=== PATIENT | female | born 1965 | race Caucasian/White ===

== ENCOUNTER 2018-11-23 15:59 | Inpatient (IN) | payer OTHER ==
--- NOTE | 2018-11-23 16:12 | PDOC ---
History of Present Illness - General Stated Complaint: SHORTNESS OF BREATH Time Seen by Provider: 11/23/18 16:01 History Source: Patient Exam Limitations: No Limitations - History of Present Illness Initial Comments: 11/23/18 16:07 53 YOF with h/o COPD (placed on steroid course 2 days ago without relief) who p/ w SOB and wheezing similar to her prior COPD exacerbation. She additionally notes awakening in the middle of the night last night with visual hallucinations. She additionally notes abdominal swelling recently, believes she has an abdominal infection but does not know what kind. Denies h/o heart arrhythmia, denies recent f/c/n/v/d, rash, chest pain, back pain, palpitations, or other symptoms. She has noticed her lips are more blue than normal. Past History - Past Medical History Allergies/Adverse Reactions: Allergies Allergy/AdvReac Type Severity Reaction Status Date / Time No Known Allergies Allergy Verified 11/23/18 16:10 Home Medications: Ambulatory Orders Albuterol Sulfate Inhaler - [Ventolin Hfa Inhaler -] 1 - 2 inh PO QID 11/23/18 Aspirin [ASA -] 81 mg PO DAILY 11/23/18 Budesonide/Formeterol Fumarate [SYMBICORT 160/4.5mcg -] 1 inh PO DAILY 11/23/18 Furosemide [Lasix] 40 mg PO DAILY 11/23/18 Gabapentin 100 mg PO DAILY 11/23/18 Glipizide 10 mg PO BID 11/23/18 Lisinopril [Prinivil] 10 mg PO DAILY 11/23/18 Metformin HCl [Glucophage] 500 mg PO BID 11/23/18 Multivitamins [Tab-A-Vit -] 1 tab PO DAILY 11/23/18 Salmeterol/Fluticasone [Advair 500Mcg/50Mcg -] 1 inh IH BID 11/23/18 Review of Systems - Review of Systems Able to Perform ROS?: Yes Comments:: 11/23/18 16:24 GEN: no fever, chills, malaise, generalized weakness, or weight change HEENT: no ear pain, sore throat, vision change, or eye pain CV: no chest pain, palpitations, lightheadedness, syncope, or edema RESP: cough, wheezing, SOB GI: no abdominal pain, nausea, vomiting, diarrhea, constipation, or white/black/ bloody stool : no dysuria, hematuria, incontinence, retention, bleeding, or discharge MSK: no neck/back pain, muscle weakness/pain, or joint swelling/pain NEURO: no headache, seizure, vertigo, numbness, tingling, or focal weakness PSYCH: no substance use, no behavior change SKIN: no jaundice, no rash ROS otherwise negative except as noted in HPI *Physical Exam - Vital Signs 11/23/18 16:25 GENERAL: mild distress, cyanosis noted to lips, obese, A/Ox4, no distress, answers questions appropriately, accompanied by family HEENT: cyanosis; PERRLA, EOMI, moist mucous membranes NECK/BACK: no midline ttp, no spinal stepoff or deformity, no hematoma, full ROM , neck supple, no JVD CARDIOVASCULAR: rapid regular rate, normal S1S2, no MGR, strong peripheral pulses, capillary refill <2 seconds, extremities wwp, no edema LUNGS/RESPIRATORY: moderate respiratory distress, diffusely diminished breath sounds, bilateral expiratory wheezes and rhonchi, +accessory muscle use GI/ABDOMEN: protuberant, symmetric [id number], normoactive BS, no ttp : no CVA tenderness EXTREMITIES: no muscle atrophy, no acute deformity, no edema SKIN: warm and dry, no pallor, no jaundice, no rash, no bruising, no skin breakdown, no cuts, no lesions NEUROLOGICAL: GCS 15, CN II-XII grossly intact, moving all extremities Heart Score/ECG Review #1 11/23/18 16:11 Sinus tachycardia, rate of 152, right axis deviation, normal QTc, no ischemic ST -T changes #2 12/05/18 19:11 A-flutter, usually 2:1 conduction but occasional 3:1 versus PVC, ventricular rate 148, right axis deviation, no ischemic ST-T changes. ED Treatment Course - LABORATORY CBC & Chemistry Diagram: 12/05/18 05:30 12/05/18 09:00 - RADIOLOGY Radiology Studies Ordered: Category Date Time Status CHEST X-RAY PORTABLE* [RAD] Stat Radiology 11/23/18 16:05 Ordered Medical Decision Making - Critical Care Time Total Critical Care Time (minutes): 60 Critical Care Statement: The care of this patient involved high complexity decision making to prevent further life threatening deterioration of the patient 's condition and/or to evaluate & treat vital organ system(s) failure or risk of failure. - Medical Decision Making 11/23/18 16:30 Pt with h/o COPD p/w SOB and respiratory distress like their prior COPD exacerbation. Initial Vital Signs Pulse Resp BP Pulse Ox 150 H 36 H 129/109 H 87 L 11/23/18 16:00 11/23/18 16:00 11/23/18 16:00 11/23/18 16:00 Exam: As noted in Physical Exam section. DDX IBNLT: COPD, bronchitis, PNA, viral URI, influenza, less likely any of the following but still considered are: PTX, CHF, ACS, PE, pericarditis, pneumonitis , allergic rxn, etc W/U ordered: CBCD CMP Mg Phos Cardiac panel Blood gas EKG CXR TX ordered: DuoNebs SoluMedrol (if likely admission) Magnesium BiPAP EKG: Reviewed; results as noted in ECG Review section. CXR: No focal consolidation, mediatinum is more prominant than prior CXR but todays is portable AP, last was PA. Patient remains tachycardic to 152, IVF are started, ordered 1 liter NS. Laboratory Tests 11/23/18 11/23/18 11/23/18 16:23 16:40 16:40 WBC 9.1 RBC 4.53 Hgb 15.0 Hct 47.8 H MCV 105.6 H MCH 33.2 MCHC 31.5 L RDW 15.3 D Plt Count 140 MPV 9.6 Absolute Neuts (auto) 7.7 Neutrophils % 85.3 H Lymphocytes % 6.9 L Monocytes % 7.5 Eosinophils % 0.0 Basophils % 0.3 Nucleated RBC % 0 PT with INR INR PTT (Actin FS) Anticoagulation Therapy No Result Required. Puncture Site No Result Required. ABG pH 7.27 L ABG pCO2 at Pt Temp 68.0 H* ABG pO2 at Pt Temp 96.5 ABG HCO3 30.4 H ABG O2 Sat (Measured) 95.9 ABG O2 Content No Result Required. ABG Base Excess 1.7 Mendoza Test Positive Methemoglobin 0.2 L O2 Delivery Device No Result Required. Oxygen Flow Rate No Result Required. Vent Mode No Result Required. Vent Rate No Result Required. Mechanical Rate No Result Required. Pressure Support Vent No Result Required. Sodium 135 L Potassium 5.0 Chloride 96 L Carbon Dioxide 29 Anion Gap 9 BUN 36 H Creatinine 1.3 Creat Clearance w eGFR 42.68 Random Glucose 149 H Calcium 8.5 Phosphorus 4.0 Magnesium 2.1 Total Bilirubin 0.6 AST 119 H ALT 74 H Alkaline Phosphatase 135 H Creatine Kinase 38 Troponin I 0.05 B-Natriuretic Peptide 3256.6 H Total Protein 7.1 Albumin 3.5 11/23/18 16:40 WBC RBC Hgb Hct MCV MCH MCHC RDW Plt Count MPV Absolute Neuts (auto) Neutrophils % Lymphocytes % Monocytes % Eosinophils % Basophils % Nucleated RBC % PT with INR 13.30 H INR 1.13 H PTT (Actin FS) 29.1 Anticoagulation Therapy Puncture Site ABG pH ABG pCO2 at Pt Temp ABG pO2 at Pt Temp ABG HCO3 ABG O2 Sat (Measured) ABG O2 Content ABG Base Excess Mendoza Test Methemoglobin O2 Delivery Device Oxygen Flow Rate Vent Mode Vent Rate Mechanical Rate Pressure Support Vent Sodium Potassium Chloride Carbon Dioxide Anion Gap BUN Creatinine Creat Clearance w eGFR Random Glucose Calcium Phosphorus Magnesium Total Bilirubin AST ALT Alkaline Phosphatase Creatine Kinase Troponin I B-Natriuretic Peptide Total Protein Albumin Reassessment: Patient states breathing much better, still on BiPAP, better air movement, still wheezing. Lips no longer cyanotic, mental status remains intact. As a secondary complaint the patient now notes one month of abdominal distention and constipation without pain, states last "good" BM was a few days ago but has several smaller BMs since then, still passing gas normally. States she put herself on amoxicillin a month ago, continues on the amoxicillin, this medication was not prescribed for the abdominal/GI symptoms. Vital Signs Temperature Pulse Rate 152 H 11/23/18 17:24 Respiratory Rate 20 11/23/18 17:24 Blood Pressure 132/113 H 11/23/18 17:24 O2 Sat by Pulse Oximetry (%) 100 11/23/18 17:24 Patient still on continuous DuoNeb. Tachycardia caused by albuterol? 11/23/18 17:44 The Pts symptoms persist despite ED treatments. They are not safe for discharge from the ED at this time. They require further hospital observation, workup, and treatment. Patient's PCP is Daniel Castañeda. Microblog sent to [facility] for admission. Blank Decision to Admit order is placed per ED protocol. 11/23/18 18:[address] San; patient going to IP Tele. Decision to Admit order corrected with Dr. San's name. 11/23/18 18:59 Repeating EKG, will do diltiazem push to assess rhythm. Considering the possibility of atrial flutter as she still remains at HR 150. Patient is given 10 mg pushes diltiazem. Her rate slows briefly for one beat at a time with first three pushes. BP rechecked multiple times between pushes, never hypotensive. After 4th push she transiently improves to 130s, then back up to 150s. At this time her EKG reflects sawtooth waveforms typical of AFL. [employer] is microblogged with this information. Repeating troponin in addition to the EKG that was done after dilt pushes. Giving PO diltiazem. Patient's care is endorsed to Dr. Barriga. *DC/Admit/Observation/Transfer Diagnosis at time of Disposition: COPD exacerbation, Tachycardia Atrial flutter Qualifiers: Atrial flutter type: unspecified Qualified Code(s): I48.92 - Unspecified atrial flutter - Discharge Dispostion Condition at time of disposition: Guarded Decision to Admit order: Yes - Referrals - Patient Instructions - Post Discharge Activity
[2018-11-23] MEDS ORDERED: ALBUTEROL SO4 2.5/IPRATROPIUM 0.5 INH SOL 3 ML VIAL.NEB. NEB ONE ×2 (16:33→17:18)
[2018-11-23] MEDS ORDERED: methylPREDNISolone NA SUCC 125 MG/2 ML VIAL IVPB ONE (16:34)
[2018-11-23] MEDS ORDERED: MAGNESIUM SULF 50% (8.12 MEQ/2 ML-1 GM VIAL) IVPB ONE (16:34)
[2018-11-23] MEDS: ALBUTEROL SO4 2.5/IPRATROPIUM 0.5 INH SOL 3 ML VIAL.NEB. NEB SCH ×4 (16:41→17:16)
[2018-11-23] MEDS ORDERED: methylPREDNISolone NA SUCC 125 MG/2 ML VIAL ONE (16:43)
[2018-11-23] MEDS ORDERED: MAGNESIUM SULF 50% (8.12 MEQ/2 ML-1 GM VIAL) ONE (16:43)
[2018-11-23 16:52] LABS: ARTERIAL BLD GAS O2 SATURATION 95.9 % (90-98.9); ARTERIAL BLOOD GAS BASE EXCESS 1.7 meq/l (-2-2); ARTERIAL BLOOD GAS PO2 96.5 mmHg (80-100); ARTERIAL BLOOD GAS pH 7.27 (7.35-7.45)
[2018-11-23 16:53] LABS: ALLENS TEST POSITIVE
[2018-11-23 17:01] LABS: BASO % 0.3 % (0-2.0); HEMATOCRIT 47.8 % (32.4-45.2); LYMPH % 6.9 % (8-40); MCH 33.2 pg (25.7-33.7); MCHC 31.5 g/dl (32.0-36.0); MEAN CELL VOLUME 105.6 fl (80-96); MEAN PLT VOLUME 9.6 fl (7.5-11.1); MONO % 7.5 % (3.8-10.2); NEUT % 85.3 % (42.8-82.8); PLATELET COUNT 140 K/MM3 (134-434); RBC 4.53 M/mm3 (3.60-5.2); RDW 15.3 % (11.6-15.6); WHITE BLOOD COUNT 9.1 K/mm3 (4.0-10.0)
[2018-11-23] MEDS ORDERED: SODIUM CHLORIDE 0.9% 500 ML INFUS.BAG IV ONE (17:06)
--- NOTE | 2018-11-23 17:11 | PDOC ---
Attending Attestation - Resident Resident Name: Pebbles Velásquez - ED Attending Attestation I have performed the following: I have examined & evaluated the patient, The case was reviewed & discussed with the resident, I agree w/resident's findings & plan, Exceptions are as noted - HPI HPI: 11/23/18 16:58 The patient is a 53 year old female, with a significant past medical history of COPD (placed on steroid course 2 days ago without relief), who presents to the emergency department with, shortness of breath and wheezing. She states that she feels like she is having a COPD flare that started 3 days ago. Patient notes waking up last night with confusion and blue lips. She denies recent fevers, chills, headache or dizziness. She denies recent nausea, vomit, diarrhea or constipation. She denies recent dysuria, frequency, urgency or hematuria. She denies recent chest pain or palpitations Allergies: NKDA - Physicial Exam PE: 11/23/18 17:11 "GENERAL: Awake, alert, and fully oriented, in no acute distress. HEAD: No signs of trauma EYES: PERRLA, EOMI, sclera anicteric, conjunctiva clear ENT: Auricles normal inspection, hearing grossly normal, nares patent, oropharynx clear without exudates. Moist mucosa NECK: Nontender, no stepoffs, Normal ROM, supple, no lymphadenopathy, JVD, or masses LUNGS: + bilateral inspiratory and expiratory wheezes HEART: Regular rate and rhythm, normal S1 and S2, no murmurs, rubs or gallops ABDOMEN: Soft, nontender, normoactive bowel sounds. No guarding, no rebound. No masses EXTREMITIES: Normal range of motion, no edema. No clubbing or cyanosis. No cords, erythema, or tenderness NEUROLOGICAL: Cranial nerves II through XII intact. 5/5 strength and sensation in all extremities, Normal speech, normal gait, normal cerebellar function SKIN: Warm, Dry, normal turgor, no rashes or lesions noted. - Critical Care Time Total Critical Care Time: 60 Critical Care Statement: The care of this patient involved high complexity decision making to prevent further life threatening deterioration of the patient 's condition and/or to evaluate & treat vital organ system(s) failure or risk of failure. - Medical Decision Making 11/23/18 17:11 53 F with SOB, found to be wheezing on exam. Likely COPD flare. Will also evaluate for CHF though pt with no cardiac history. No fevers to suggest PNA. - Labs, trop, BNP - CXR - VBG - Nebs, steroids - BiPAP PRN 11/23/18 18:52 Pt persistently tachycardic to 150 EKG shows sinus tach vs aflutter with 2:1 conduction Pt with no h/o afib/flutter Will administer dilt 10mg IV and repeat EKG at this time 11/23/18 19:16 Pt given dilt 40mg IV total, with improvement in HR to 120s. Repeat EKG shows aflutter.
[2018-11-23 17:12] LABS: INR 1.13 (0.83-1.09); PROTHROMBIN TIME (PATIENT) 13.3 SEC (9.7-13.0)
[2018-11-23 17:15] LABS: ACTIVATED PTT 29.1 SECONDS (25.2-36.5)
[2018-11-23 17:33] LABS: ALBUMIN 3.5 g/dl (3.4-5.0); ALK PHOS 135 U/L (45-117); ANION GAP 9 MMOL/L (8-16); BILIRUBIN,TOTAL 0.6 mg/dL (0.2-1); BLOOD UREA NITROGEN 36 mg/dL (7-18); CALCIUM 8.5 mg/dL (8.5-10.1); CHLORIDE 96 mmol/L (98-107); CO2 29 mmol/L (21-32); CREATININE 1.3 mg/dL (0.55-1.3); GLUCOSE,RANDOM 149 mg/dL (74-106); MAGNESIUM 2.1 mg/dL (1.8-2.4); N-TERMINAL BNP 3256.6 pg/ml (5-125); SGOT/AST 119 U/L (15-37); SGPT/ALT 74 U/L (13-61); SODIUM 135 mmol/L (136-145); TOT PROT 7.1 g/dl (6.4-8.2)
[2018-11-23] MEDS ORDERED: dilTIAZem HCL 50 MG/10 ML - 10 ML VIAL IVPUSH ONE ×2 (18:50→22:28)
[2018-11-23] MEDS ORDERED: dilTIAZem HCL 50 MG/10 ML - 10 ML VIAL ONE ×3 (18:54→23:13)
[2018-11-23 19:13] LABS: MACROCYTOSIS 2+; OVALOCYTE 1+
[2018-11-23 19:14] LABS: PLATELET ESTIMATE ADEQUATE
[2018-11-23] MEDS ORDERED: dilTIAZem HCL 30 MG TABLET (FP) PO ONE (19:19)
[2018-11-23] MEDS ORDERED: dilTIAZem HCL 30 MG TABLET (FP) ONE (19:30)
[2018-11-23] MEDS ORDERED: DILTIAZEM INJECTION 125 MG in SODIUM CHLORIDE 100 ML IVPB SCH (22:30)
--- NOTE | 2018-11-23 22:31 | CON.CARD ---
Consult Consult Specialty:: cardiology Reason for Consultation:: tachycardia; shortness of breath - History of Present Illness Chief Complaint: SOB; visual hallucinations History of Present Illness: 53 YOF with h/o COPD (placed on steroid course 2 days ago without relief) acute/ chronic alcoholism (several glasses of rum daily), long-term cigarette smoker, sleep apnea, morbid obesity, DM, HTN, hyperlipidemia, metabolic syndrome, who p /w SOB and wheezing similar to her prior COPD exacerbation. She additionally notes awakening in the middle of the night last night with visual hallucinations. She additionally notes abdominal swelling recently, believes she has an abdominal infection but does not know what kind. Denies h/o heart arrhythmia. She has noticed her lips are more blue than normal. - History Source History Provided By: Patient, Family Member, Medical Record Limitations to Obtaining History: No Limitations - Past Medical History Pulmonary: Yes: COPD, Sleep Apnea (r/o (morbid obesity; COPD)) Reproductive: Yes: Postmenopausal ...: No Endocrine: Yes: Diabetes Mellitus - Alcohol/Substance Use Hx Alcohol Use: Yes (4 glasses of Rum) - Smoking History Smoking history: Current every day smoker Aproximately how many cigarettes per day: 3 Home Medications - Allergies Allergies/Adverse Reactions: Allergies Allergy/AdvReac Type Severity Reaction Status Date / Time No Known Allergies Allergy Verified 11/23/18 16:10 - Home Medications Home Medications: Ambulatory Orders Albuterol Sulfate Inhaler - [Ventolin Hfa Inhaler -] 1 - 2 inh PO QID 11/23/18 Aspirin [ASA -] 81 mg PO DAILY 11/23/18 Budesonide/Formeterol Fumarate [SYMBICORT 160/4.5mcg -] 1 inh PO DAILY 11/23/18 Furosemide [Lasix] 40 mg PO DAILY 11/23/18 Gabapentin 100 mg PO DAILY 11/23/18 Glipizide 10 mg PO BID 11/23/18 Lisinopril [Prinivil] 10 mg PO DAILY 11/23/18 Metformin HCl [Glucophage] 500 mg PO BID 11/23/18 Multivitamins [Tab-A-Vit -] 1 tab PO DAILY 11/23/18 Salmeterol/Fluticasone [Advair 500Mcg/50Mcg -] 1 inh IH BID 11/23/18 Family Disease History - Family Disease History Family History: Unable to Obtain Review of Systems - Review of Systems Constitutional: reports: Weakness Eyes: reports: No Symptoms HENT: reports: No Symptoms Neck: reports: No Symptoms Cardiovascular: reports: Shortness of Breath Respiratory: reports: SOB, Wheezing Gastrointestinal: reports: No Symptoms Genitourinary: reports: No Symptoms Breasts: reports: No Symptoms Reported Musculoskeletal: reports: Joint Pain, Muscle Weakness Integumentary: reports: No Symptoms Neurological: reports: Weakness Endocrine: reports: No Symptoms Hematology/Lymphatic: reports: No Symptoms Psychiatric: reports: Anxiety, Other (addictions) - Risk Factors Known Risk Factors: Yes: Age, Diabetes Mellitus, Hypercholesterolemia, Hypertension, Physical Inactivity, Smoking, Other (morbid obesity) Vital Signs: Vital Signs Temperature 97.8 F 11/23/18 18:18 Pulse Rate 149 H 11/23/18 19:45 Respiratory Rate 20 11/23/18 19:45 Blood Pressure 118/96 11/23/18 19:45 O2 Sat by Pulse Oximetry (%) 95 11/23/18 21:29 Constitutional: Yes: Anxious Eyes: Yes: WNL HENT: Yes: WNL Neck: Yes: WNL Respiratory: Yes: Diminished, On BiPap, SOB, Wheezes Gastrointestinal: Yes: Soft, Abdomen, Obese Renal/: No: Anuria Cardiovascular: Yes: Tachycardia, Pulse Irregular JVD: Yes Carotid Bruit: No PMI: Displaced Heart Sounds: Yes: S1 (varies in intensity), Split S2 Murmur: Yes: Systolic Murmur, Grade 1 Musculoskeletal: Yes: Joint Stiffness, Muscle Weakness Extremities: Yes: Cool Edema: Yes Edema: LLE: 1+, RLE: 1+ Peripheral Pulses WNL: Yes Integumentary: Yes: Erythema Neurological: Yes: Alert, Oriented, Weakness Psychiatric: Yes: Other (anxiety) - Other Data Labs, Other Data: CBC, BMP 11/23/18 16:40 11/23/18 16:40 INR, PTT INR 1.13 (0.83-1.09) H 11/23/18 16:40 Troponin, BNP 11/23/18 11/23/18 16:40 19:42 Troponin I 0.05 0.03 B-Natriuretic Peptide 3256.6 H Troponin, BNP 11/23/18 11/23/18 16:40 19:42 Troponin I 0.05 0.03 B-Natriuretic Peptide 3256.6 H Imaging - Results Chest X-ray: Image Reviewed EKG: Image Reviewed (Atrial flutter) Problem List - Problems (1) Atrial flutter Assessment/Plan: Control HR with diltiazem (IV bolus and drip initially, with PO for long-term, unless ECHO shows reduced LVEF, in which case consdie change to Beta nico if no hx asthma).). Start anticoagulation if CT chest rules out bleed from trauma. ECHO for LVEF, chamber sizes, valve status. r/o PE Code(s): I48.92 - UNSPECIFIED ATRIAL FLUTTER (2) Morbid obesity Code(s): E66.01 - MORBID (SEVERE) OBESITY DUE TO EXCESS CALORIES (3) COPD exacerbation Assessment/Plan: bronchodilators, O2, steroids per parachute/combatant diver officer. Code(s): J44.1 - CHRONIC OBSTRUCTIVE PULMONARY DISEASE W (ACUTE) EXACERBATION (4) Hyperlipidemia Code(s): E78.5 - HYPERLIPIDEMIA, UNSPECIFIED (5) HTN (hypertension) Code(s): I10 - ESSENTIAL (PRIMARY) HYPERTENSION (6) Diabetes Code(s): E11.9 - TYPE 2 DIABETES MELLITUS WITHOUT COMPLICATIONS (7) [place] cardiac risk >20% in next 10 years Assessment/Plan: Follow lipid profile. BP and glucose control. Coronary artery evaluation when stable (stress MIBI). Code(s): Z91.89 - OTH PERSONAL RISK FACTORS, NOT ELSEWHERE CLASSIFIED (8) Elevated LFTs Code(s): R94.5 - ABNORMAL RESULTS OF LIVER FUNCTION STUDIES (9) Cigarette nicotine dependence Code(s): F17.210 - NICOTINE DEPENDENCE, CIGARETTES, UNCOMPLICATED (10) Alcoholism Assessment/Plan: Detox protocol. Code(s): F10.20 - ALCOHOL DEPENDENCE, UNCOMPLICATED (11) Cellulitis Assessment/Plan: On antibiotics; f/u with ID. Code(s): L03.90 - CELLULITIS, UNSPECIFIED (12) Sleep apnea Assessment/Plan: workup, if not already diagnosed. Code(s): G47.30 - SLEEP APNEA, UNSPECIFIED
--- NOTE | 2018-11-23 23:05 | HP ---
Admitting History and Physical - Primary Care Physician PCP: Brown Castañeda - Admission Chief Complaint: SOB, Wheezing, Confusion, Abdominal Distention History of Present Illness: This is a 53 y/o woman with a PMHx of COPD, HTN, DM, Hypothyroidism, Tobacco Dependence, Severe Obesity. Who presents to the ED with SOB, QUESADA, Cough, blue lips, confusion x3 days, L breast pain s/p mechanical fall (last Saturday). Patient reports being treated with steroids recently with no improvement. Patient reports exposure to cleaning chemicals last Saturday. Patient reports having abdominal distention which she attributes to "constipation issues" Patient denies fever, ALEJANDRO, palpitations, N/V/D, dysuria. Patient denies head injury or LOC. History Source: Patient Limitations to Obtaining History: No Limitations - Past Medical History Cardiovascular: Yes: HTN Pulmonary: Yes: COPD, Sleep Apnea (r/o (morbid obesity; COPD)) Reproductive: Yes: Postmenopausal Endocrine: Yes: Diabetes Mellitus, Hypothyroidism - Past Surgical History Past Surgical History: Yes: Cholecystectomy Additional Past Surgical History: D/C - Smoking History Smoking history: Current every day smoker Aproximately how many cigarettes per day: 6 - Alcohol/Substance Use Hx Alcohol Use: Yes (4 glasses of Rum) History of Substance Use: reports: None - Social History Usual Living Arrangement: Yes: Other (Roommate) ADL: Independent History of Recent Travel: No Home Medications - Allergies Allergies/Adverse Reactions: Allergies Allergy/AdvReac Type Severity Reaction Status Date / Time No Known Allergies Allergy Verified 11/23/18 16:10 - Home Medications Home Medications: Ambulatory Orders Albuterol Sulfate Inhaler - [Ventolin Hfa Inhaler -] 1 - 2 inh PO QID 11/23/18 Aspirin [ASA -] 81 mg PO DAILY 11/23/18 Budesonide/Formeterol Fumarate [SYMBICORT 160/4.5mcg -] 1 inh PO DAILY 11/23/18 Furosemide [Lasix] 40 mg PO DAILY 11/23/18 Gabapentin 100 mg PO DAILY 11/23/18 Glipizide 10 mg PO BID 11/23/18 Lisinopril [Prinivil] 10 mg PO DAILY 11/23/18 Metformin HCl [Glucophage] 500 mg PO BID 11/23/18 Multivitamins [Tab-A-Vit -] 1 tab PO DAILY 11/23/18 Salmeterol/Fluticasone [Advair 500Mcg/50Mcg -] 1 inh IH BID 11/23/18 Family Disease History - Family Disease History Family History: Unable to Obtain (patient is adopted) Review of Systems - Review of Systems Constitutional: reports: No Symptoms Eyes: reports: No Symptoms HENT: reports: No Symptoms, Other (circumoral cyanosis) Neck: reports: No Symptoms Cardiovascular: reports: Chest Pain, Edema, Shortness of Breath Respiratory: reports: Cough, SOB, SOB on Exertion, Wheezing Gastrointestinal: reports: Bloating, Constipation Genitourinary: reports: No Symptoms Breasts: reports: Other (L- under breast pain) Musculoskeletal: reports: No Symptoms Integumentary: reports: Erythema Neurological: reports: Confusion Endocrine: reports: No Symptoms Hematology/Lymphatic: reports: No Symptoms Psychiatric: reports: Hallucinations (visual) Physical Examination Vital Signs: Vital Signs Temperature 97.8 F 11/23/18 18:18 Pulse Rate 149 H 11/23/18 19:45 Respiratory Rate 20 11/23/18 19:45 Blood Pressure 118/96 11/23/18 19:45 O2 Sat by Pulse Oximetry (%) 95 11/23/18 21:29 Constitutional: Yes: Moderate Distress, Obese Eyes: Yes: Conjunctiva Clear (clear- right eye, injected- left eye), EOM Intact , PERRL HENT: Yes: WNL, Atraumatic, Normocephalic Neck: Yes: WNL, Supple, Trachea Midline Cardiovascular: Yes: Tachycardia, Pulse Irregular, S1, S2 Respiratory: Yes: Cough, On BiPap, Rhonchi, SOB, SOB on Exertion, Tachypnea, Wheezes Gastrointestinal: Yes: Abdomen, Obese, Distention, Hypoactive Bowel Sounds, Tenderness ...Rectal Exam: Yes: Deferred Renal/: Yes: WNL Breast(s): Yes: WNL Musculoskeletal: Yes: WNL Extremities: Yes: Erythema (LE). No: Calf Tenderness Edema: Yes Edema: LLE: 3+, RLE: 2+ Peripheral Pulses WNL: Yes Integumentary: Yes: Erythema, Venous Stasis Changes Neurological: Yes: WNL, Alert, Oriented, Cran Nerves II-XII Intact ...Motor Strength: WNL Psychiatric: Yes: WNL, Alert, Oriented Labs: CBC, BMP 11/23/18 16:40 11/23/18 16:40 Laboratory Results - last 24 hr 11/23/18 11/23/18 11/23/18 16:23 16:40 16:40 WBC 9.1 RBC 4.53 Hgb 15.0 Hct 47.8 H MCV 105.6 H MCH 33.2 MCHC 31.5 L RDW 15.3 D Plt Count 140 MPV 9.6 Absolute Neuts (auto) 7.7 Neutrophils % 85.3 H Lymphocytes % 6.9 L Monocytes % 7.5 Eosinophils % 0.0 Basophils % 0.3 Nucleated RBC % 0 Platelet Estimate Adequate Platelet Comment Polychromasia 1+ Poikilocytosis 1+ Macrocytosis 2+ Ovalocytes 1+ PT with INR INR PTT (Actin FS) D-Dimer Anticoagulation Therapy No Result Required. Puncture Site No Result Required. ABG pH 7.27 L ABG pCO2 at Pt Temp 68.0 H* ABG pO2 at Pt Temp 96.5 ABG HCO3 30.4 H ABG O2 Sat (Measured) 95.9 ABG O2 Content No Result Required. ABG Base Excess 1.7 Mendoza Test Positive Methemoglobin 0.2 L O2 Delivery Device No Result Required. Oxygen Flow Rate No Result Required. Vent Mode No Result Required. Vent Rate No Result Required. Mechanical Rate No Result Required. Pressure Support Vent No Result Required. Sodium 135 L Potassium 5.0 Chloride 96 L Carbon Dioxide 29 Anion Gap 9 BUN 36 H Creatinine 1.3 Creat Clearance w eGFR 42.68 POC Glucometer Random Glucose 149 H Calcium 8.5 Phosphorus 4.0 Magnesium 2.1 Total Bilirubin 0.6 AST 119 H ALT 74 H Alkaline Phosphatase 135 H Creatine Kinase 38 Troponin I 0.05 B-Natriuretic Peptide 3256.6 H Total Protein 7.1 Albumin 3.5 TSH 11/23/18 11/23/18 11/23/18 16:40 16:40 19:42 WBC RBC Hgb Hct MCV MCH MCHC RDW Plt Count MPV Absolute Neuts (auto) Neutrophils % Lymphocytes % Monocytes % Eosinophils % Basophils % Nucleated RBC % Platelet Estimate Platelet Comment Polychromasia Poikilocytosis Macrocytosis Ovalocytes PT with INR 13.30 H INR 1.13 H PTT (Actin FS) 29.1 D-Dimer 4341 H Anticoagulation Therapy Puncture Site ABG pH ABG pCO2 at Pt Temp ABG pO2 at Pt Temp ABG HCO3 ABG O2 Sat (Measured) ABG O2 Content ABG Base Excess Mendoza Test Methemoglobin O2 Delivery Device Oxygen Flow Rate Vent Mode Vent Rate Mechanical Rate Pressure Support Vent Sodium Potassium Chloride Carbon Dioxide Anion Gap BUN Creatinine Creat Clearance w eGFR POC Glucometer Random Glucose Calcium Phosphorus Magnesium Total Bilirubin AST ALT Alkaline Phosphatase Creatine Kinase Troponin I 0.03 B-Natriuretic Peptide Total Protein Albumin TSH 11/24/18 11/24/18 11/24/18 02:08 02:08 03:54 WBC RBC Hgb Hct MCV MCH MCHC RDW Plt Count MPV Absolute Neuts (auto) Neutrophils % Lymphocytes % Monocytes % Eosinophils % Basophils % Nucleated RBC % Platelet Estimate Platelet Comment Polychromasia Poikilocytosis Macrocytosis Ovalocytes PT with INR INR PTT (Actin FS) D-Dimer Anticoagulation Therapy Puncture Site ABG pH ABG pCO2 at Pt Temp ABG pO2 at Pt Temp ABG HCO3 ABG O2 Sat (Measured) ABG O2 Content ABG Base Excess Mendoza Test Methemoglobin O2 Delivery Device Oxygen Flow Rate Vent Mode Vent Rate Mechanical Rate Pressure Support Vent Sodium Potassium Chloride Carbon Dioxide Anion Gap BUN Creatinine Creat Clearance w eGFR POC Glucometer [phone] Random Glucose Calcium Phosphorus Magnesium Total Bilirubin AST ALT Alkaline Phosphatase Creatine Kinase Troponin I 0.03 B-Natriuretic Peptide Total Protein Albumin TSH Cancelled Intake & Output 11/21/18 11/22/18 11/23/18 11/24/18 23:59 23:59 23:59 23:59 Intake Total 100 Balance 100 Weight 124.738 kg Current Medications Generic Name Dose Route Start Last Admin Trade Name Freq PRN Reason Stop Dose Admin Apixaban 5 mg 11/24/18 10:00 Eliquis - PO BID [facility] Aspirin 81 mg 11/24/18 10:00 Asa - PO DAILY [facility] Budesonide/Formoterol Fumarate 1 puff 11/24/18 10:00 Symbicort 160/4.5mcg - IH DAILY [facility] Diltiazem HCl 30 mg 11/24/18 06:00 11/24/18 06:13 Cardizem - PO 30 mg Q6HPO [facility] Administration Furosemide 40 mg 11/24/18 10:00 Lasix Injection - IVPUSH DAILY [facility] Gabapentin 100 mg 11/24/18 10:00 Neurontin - PO DAILY [facility] Diltiazem HCl 125 mg/ Sodium 125 mls @ 5 mls/hr 11/23/18 22:30 11/24/18 08:45 Chloride IVPB 10 mg/hr TITR [facility] 10 mls/hr Titration Protocol 5 MG/HR Insulin Aspart 0 vial 11/24/18 11:00 Novolog Vial Sliding Scale - SQ ACHS [facility] Protocol Lisinopril 10 mg 11/24/18 10:00 Prinivil PO DAILY [facility] Methylprednisolone Sodium Succinate 40 mg 11/24/18 10:00 Solu-Medrol - IVPUSH Q8H-IV [facility] Multivitamins/Minerals/Vitamin C 1 tab 11/24/18 10:00 Tab-A-Vit - PO DAILY [facility] Imaging - Results Chest X-ray: Image Reviewed Cat Scan: Report Reviewed, Image Reviewed Ultrasound: Pending EKG: Image Reviewed Problem List - Problems (1) New onset atrial flutter Code(s): I48.92 - UNSPECIFIED ATRIAL FLUTTER (2) Acute respiratory failure with hypoxia and hypercapnia Code(s): J96.01 - ACUTE RESPIRATORY FAILURE WITH HYPOXIA; J96.02 - ACUTE RESPIRATORY FAILURE WITH HYPERCAPNIA (3) Pneumonia Code(s): J18.9 - PNEUMONIA, UNSPECIFIED ORGANISM (4) [place] cardiac risk >20% in next 10 years Code(s): Z91.89 - OTH PERSONAL RISK FACTORS, NOT ELSEWHERE CLASSIFIED (5) Bilateral lower extremity edema Code(s): R60.0 - LOCALIZED EDEMA (6) HTN (hypertension) Code(s): I10 - ESSENTIAL (PRIMARY) HYPERTENSION (7) Hyperlipidemia Code(s): E78.5 - HYPERLIPIDEMIA, UNSPECIFIED (8) Diabetes Code(s): E11.9 - TYPE 2 DIABETES MELLITUS WITHOUT COMPLICATIONS (9) Morbid obesity Code(s): E66.01 - MORBID (SEVERE) OBESITY DUE TO EXCESS CALORIES Assessment/Plan This is a 53 y/o woman with a PMHx of COPD, HTN, NIDDM. Admitted to Telemetry for New Onset AFlutter, Pneumonia, Acute Hypoxia Hypercapnic Respiratory Failure , Acute COPD Exacerbation for further evaluation of their emergent condition. Plan: 1. Cardiovascular Newonset Aflutter HTN Lower Extremity Edema Continue Cardiac monitoring EKGs done in ED reviewed Cardizem x 4 doses given in ED with some effect Appreciate Cardiology consult Per Cardiology recommendation Cardizem drip started in ED Concerning for possible PE Wells Score 4.5 Add on d Dimer >4000 CTA r/o PE [id number] Will start on Eliquis, pending CTA results Wells Score 2 Duplex of LE r/o DVT Continue home med Monitor renal function 2. Pulmonary Acute Hypoxia Hypercapnic Respiratory Failure Pneumonia Acute COPD Exacerbation Continue BIPAP AB.27/68/96/30.4/95.9 ABG in am, adjust BIPAP settings accordingly Duonebs Solumederol, Mag Sulfate, Duonebs given in ED Solumederol w/taper Appreciate Pulmonology consult CTA- pending Blood Cultures-pending Will start on Azithromycin, Ceftriaxone empirically for CAP Appreciate ID consult Continue cardiac monitoring Aspiration Precautions Monitor CBC, BMP 3. Endocrinology DM BGMs ISS Hold Metformin secondary to recent IV contrast dye for CTA Monitor renal function FEN PO fluids as tolerated Replete lytes prn Low Na, Diabetic Diet DVT ppx OOB Eliquis Code Status: Full Code Dispo: Requires Inpatient Care Visit type - Emergency Visit Emergency Visit: Yes ED Registration Date: 11/23/18 Care time: The patient presented to the Emergency Department on the above date and was hospitalized for further evaluation of their emergent condition. - New Patient This patient is new to me today: Yes Date on this admission: 11/23/18 - Critical Care Critical Care patient: No
--- NOTE | 2018-11-23 23:36 | CONSULT ---
Consult - Past Medical History Pulmonary: Yes: COPD, Sleep Apnea (r/o (morbid obesity; COPD)) - Alcohol/Substance Use Hx Alcohol Use: Yes (4 glasses of Rum) - Smoking History Smoking history: Current every day smoker Aproximately how many cigarettes per day: 3 Home Medications - Allergies Allergies/Adverse Reactions: Allergies Allergy/AdvReac Type Severity Reaction Status Date / Time No Known Allergies Allergy Verified 11/23/18 16:10 - Home Medications Home Medications: Ambulatory Orders Albuterol Sulfate Inhaler - [Ventolin Hfa Inhaler -] 1 - 2 inh PO QID 11/23/18 Aspirin [ASA -] 81 mg PO DAILY 11/23/18 Budesonide/Formeterol Fumarate [SYMBICORT 160/4.5mcg -] 1 inh PO DAILY 11/23/18 Furosemide [Lasix] 40 mg PO DAILY 11/23/18 Lisinopril [Prinivil] 10 mg PO DAILY 11/23/18 Metformin HCl [Glucophage] 500 mg PO BID 11/23/18 Multivitamins [Tab-A-Vit -] 1 tab PO DAILY 11/23/18 RX: Gabapentin 100 mg PO DAILY 11/23/18 RX: Glipizide 10 mg PO BID 11/23/18 Salmeterol/Fluticasone [Advair 500Mcg/50Mcg -] 1 inh IH BID 11/23/18 Physical Exam Vital Signs: Vital Signs Temperature 97.8 F 11/23/18 18:18 Pulse Rate 122 H 11/23/18 23:24 Respiratory Rate 20 11/23/18 19:45 Blood Pressure 141/98 11/23/18 23:24 O2 Sat by Pulse Oximetry (%) 95 11/23/18 21:29 Constitutional: Yes: Moderate Distress Cardiovascular: Yes: Pulse Irregular, S1, S2 Respiratory: Yes: On BiPap, Wheezes Gastrointestinal: Yes: Normal Bowel Sounds, Soft Edema: No Neurological: Yes: Alert, Oriented Labs: CBC, BMP 11/23/18 16:40 Imaging - Results X-ray: Image Reviewed Assessment/Plan 53 yo F admitted to the ICU due to acute on chronic respiratory failure Pulm: acute on chronic hypercarbic respiratory failure - likely 2/2 COPD exacerbation - BiPAP to trach - f/u repeat ABG - standing and PRN duonebs - medrols - abx Dispo: Due to new onset of a-flutter in the setting of rising CO2, patient will require BiPAP to trach and ICU level of care. Arnaldo Fuentes MD
[2018-11-24] MEDS ORDERED: CEFTRIAXONE 1 GM in DEXTROSE 5%-WATER - 50 ML IVPB ONE (03:09)
[2018-11-24] MEDS ORDERED: AZITHROMYCIN IVPB 500 MG/250 ML BAG IVPB ONE ×2 (03:09→04:05)
[2018-11-24] MEDS ORDERED: CEFTRIAXONE 1 GM/50 ML BAG ONE (04:05)
[2018-11-24] MEDS ORDERED: dilTIAZem HCL 50 MG/10 ML - 10 ML VIAL ONE (06:03)
[2018-11-24] MEDS: dilTIAZem HCL 30 MG TABLET (FP) PO SCH ×3 (06:13→19:00)
[2018-11-24 06:37] LABS: ARTERIAL BLD GAS O2 SATURATION 94.9 % (90-98.9); ARTERIAL BLOOD GAS BASE EXCESS 2.8 meq/l (-2-2); ARTERIAL BLOOD GAS pH 7.29 (7.35-7.45)
[2018-11-24 06:41] LABS: ALLENS TEST POSITIVE
[2018-11-24 06:49] LABS: ARTERIAL BLOOD GAS PCO2 67.2 mmHg (35-45)
[2018-11-24] MEDS ORDERED: INSULIN (NOVOLOG) ASPART 100 UNITS/ML 10ML VIAL ONE ×2 (07:15→07:28)
[2018-11-24] MEDS ORDERED: PATIENT'S OWN MEDICATION (NON-FORMULARY) (Salmeterol/Fluticasone [Advair 500mcg/50mcg -] 1 IH SCH (10:00)
[2018-11-24] MEDS ORDERED: FUROSEMIDE 40 MG/4 ML INJECTABLE VIAL IVPUSH SCH (10:00)
[2018-11-24] MEDS ORDERED: MUPIROCIN 2% TOPICAL OINTMENT FOR DECOLONIZATION NS SCH (10:00)
[2018-11-24] MEDS ORDERED: LISINOPRIL 10 MG TABLET (FP) PO SCH (10:00)
[2018-11-24] MEDS ORDERED: ASPIRIN 81 MG CHEWABLE TABLETS ONE (10:43)
[2018-11-24] MEDS ORDERED: LISINOPRIL 5 MG TABLET (FP) ONE (10:43)
[2018-11-24] MEDS ORDERED: APIXABAN 5 MG TABLET PO ONE (10:43)
[2018-11-24] MEDS ORDERED: methylPREDNISolone NA SUCC 40 MG/1 ML VIAL ONE (10:44)
[2018-11-24] MEDS ORDERED: FUROSEMIDE 40 MG/4 ML INJECTABLE VIAL ONE (10:44)
[2018-11-24] MEDS ORDERED: GABAPENTIN 100 MG CAPSULE (FP) ONE (10:44)
[2018-11-24 11:15] LABS: ALBUMIN 3.7 g/dl (3.4-5.0); ALK PHOS 130 U/L (45-117); ANION GAP 4 MMOL/L (8-16); BILIRUBIN,TOTAL 0.6 mg/dL (0.2-1); BLOOD UREA NITROGEN 41 mg/dL (7-18); CALCIUM 8.8 mg/dL (8.5-10.1); CHLORIDE 96 mmol/L (98-107); CHOLESTEROL 168 mg/dL (50-200); CO2 33 mmol/L (21-32); CREATININE 1.3 mg/dL (0.55-1.3); GLUCOSE,RANDOM 231 mg/dL (74-106); HDL CHOLESTEROL 31 mg/dL (40-60); MAGNESIUM 2.7 mg/dL (1.8-2.4); POTASSIUM 5.3 mmol/L (3.5-5.1); SGOT/AST 126 U/L (15-37); SGPT/ALT 90 U/L (13-61); SODIUM 133 mmol/L (136-145); TOT PROT 7.2 g/dl (6.4-8.2); TRIGLYCERIDES 151 mg/dL (0-150)
--- NOTE | 2018-11-24 11:25 | PN ---
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, Physician History of Present Illness: pt seen/ examined in er family at bedside chart reviewed still in rapid aflutter sob + admits drinks on regular basis also - Current Medication List Current Medications: Active Medications Apixaban (Eliquis -) 5 mg PO BID [facility] Aspirin (Asa -) 81 mg PO DAILY [facility] Budesonide/Formoterol Fumarate (Symbicort 160/4.5mcg -) 1 puff IH DAILY [facility] Diltiazem HCl (Cardizem -) 30 mg PO Q6HPO [facility] Last Admin: 11/24/18 06:13 Dose: 30 mg Furosemide (Lasix Injection -) 40 mg IVPUSH DAILY [facility] Gabapentin (Neurontin -) 100 mg PO DAILY [facility] Diltiazem HCl 125 mg/ Sodium (Chloride) 125 mls @ 5 mls/hr IVPB TITR [facility]; Protocol Last Titration: 11/24/18 08:45 Dose: 10 mg/hr, 10 mls/hr Insulin Aspart (Novolog Vial Sliding Scale -) 1 vial SQ ACHS [facility]; Protocol Insulin Detemir (Levemir Vial) 10 units SQ HS [facility] Lisinopril (Prinivil) 10 mg PO DAILY [facility] Methylprednisolone Sodium Succinate (Solu-Medrol -) 40 mg IVPUSH Q8H-IV [facility] Multivitamins/Minerals/Vitamin C (Tab-A-Vit -) 1 tab PO DAILY [facility] - Objective Vital Signs: Vital Signs Temperature 98.6 F 11/24/18 06:05 Pulse Rate 143 H 11/24/18 09:20 Respiratory Rate 18 11/24/18 09:20 Blood Pressure 103/62 11/24/18 09:20 O2 Sat by Pulse Oximetry (%) 96 11/24/18 09:20 Constitutional: Yes: Anxious, Mild Distress, Obese Eyes: Yes: Conjunctiva Clear Neck: Yes: Supple Cardiovascular: Yes: Tachycardia, Pulse Irregular Respiratory: Yes: On Nasal O2, Rhonchi Gastrointestinal: Yes: Soft Edema: LLE: 2+, RLE: 2+ Neurological: Yes: Alert Labs: CBC, BMP 11/24/18 09:54 INR, PTT INR 1.13 (0.83-1.09) H 11/23/18 16:40 - ....Imaging Chest X-ray: Report Reviewed Cat Scan: Report Reviewed Problem List - Problems (1) Acute respiratory failure with hypoxia and hypercapnia Code(s): J96.01 - ACUTE RESPIRATORY FAILURE WITH HYPOXIA; J96.02 - ACUTE RESPIRATORY FAILURE WITH HYPERCAPNIA (2) Atrial flutter Code(s): I48.92 - UNSPECIFIED ATRIAL FLUTTER (3) Bilateral lower extremity edema Code(s): R60.0 - LOCALIZED EDEMA (4) COPD exacerbation Code(s): J44.1 - CHRONIC OBSTRUCTIVE PULMONARY DISEASE W (ACUTE) EXACERBATION (5) Diabetes Code(s): E11.9 - TYPE 2 DIABETES MELLITUS WITHOUT COMPLICATIONS (6) Elevated LFTs Code(s): R94.5 - ABNORMAL RESULTS OF LIVER FUNCTION STUDIES (7) Hyperlipidemia Code(s): E78.5 - HYPERLIPIDEMIA, UNSPECIFIED (8) Morbid obesity Code(s): E66.01 - MORBID (SEVERE) OBESITY DUE TO EXCESS CALORIES Assessment/Plan Discussed with pt in detail/ family compliance major issue admit to icu cardizem drip-- titrate as needed add digoxin ? cardiology on case echo meds reviewed alcohol and smoking cessation counselling provided again add gi prophylaxis as well as basal insulin discussed with nursing staff also. will follow cc time approx 45 min
[2018-11-24 12:00] LABS: BASO % 0.1 % (0-2.0); HEMATOCRIT 46.5 % (32.4-45.2); HEMOGLOBIN 14.2 GM/dL (10.7-15.3); MCH 32.5 pg (25.7-33.7); MCHC 30.5 g/dl (32.0-36.0); MEAN CELL VOLUME 106.7 fl (80-96); MEAN PLT VOLUME 9.4 fl (7.5-11.1); MONO % 10.5 % (3.8-10.2); NEUT % 80.4 % (42.8-82.8); PLATELET COUNT 162 K/MM3 (134-434); RDW 16.1 % (11.6-15.6); WHITE BLOOD COUNT 6.9 K/mm3 (4.0-10.0)
[2018-11-24 12:03] LABS: RBC 4.36 M/mm3 (3.60-5.2)
[2018-11-24] MEDS: INSULIN SLIDING SCALE (NOVOLOG) 1 VIAL SQ SCH ×3 (12:04→22:13)
[2018-11-24] MEDS: BUDESONIDE/FORMETEROL FUMARATE 160/4.5 mcg INHALER IH SCH (12:04)
[2018-11-24] MEDS: MULTIVITAMINS (DAILY MVI) TABLET (FP) PO SCH (12:04)
[2018-11-24] MEDS: APIXABAN 5 MG TABLET PO SCH ×2 (12:04→22:12)
[2018-11-24] MEDS: GABAPENTIN 100 MG CAPSULE (FP) PO SCH (12:04)
[2018-11-24] MEDS: methylPREDNISolone NA SUCC 40 MG/1 ML VIAL IVPUSH SCH ×2 (12:04→19:14)
[2018-11-24] MEDS: ASPIRIN 81 MG CHEWABLE TABLETS PO SCH (12:04)
[2018-11-24] MEDS ORDERED: dilTIAZem HCL 30 MG TABLET (FP) ONE (12:08)
[2018-11-24] MEDS ORDERED: PANTOPRAZOLE 40 MG TABLET (FP) ONE (12:08)
[2018-11-24] MEDS: PANTOPRAZOLE 20 MG TABLET (FP) PO SCH (12:21)
--- NOTE | 2018-11-24 12:37 | CON.ID ---
Consult Consult Specialty:: infectious disease Referred by:: dr gregg Reason for Consultation:: sob, r/o pneumonia - History of Present Illness Chief Complaint: worsening SOB and QUESADA History of Present Illness: 53 yo female, daily smoker, daily etoh user (rum), s/p fall at home one week ago notes she has had increasing abdominal girth for several weeks over last 3 days SOB with QUESADA and wheezing no cough no fever legs are red for awhile now ribbon shaped stools for years last colonsocopy with dr rich no flu vaccine pet dog no travel no sick contacts drinks rum daily has never tried to stop drinking noted to be in atrial flutter and started on cardizem drip - History Source History Provided By: Patient, Medical Record Limitations to Obtaining History: No Limitations - Past Medical History Cardio/Vascular: Yes: HTN Pulmonary: Yes: COPD, Sleep Apnea (r/o (morbid obesity; COPD)) Endocrine: Yes: Diabetes Mellitus, Hypothyroidism - Past Surgical History Past Surgical History: Yes: Cholecystectomy - Alcohol/Substance Use Hx Alcohol Use: Yes (4 glasses of Rum) History of Substance Use: reports: None - Smoking History Smoking history: Current every day smoker Aproximately how many cigarettes per day: 6 - Social History Usual Living Arrangement: Other (roommate) ADL: Independent Place of : [place] History of Recent Travel: No Home Medications - Allergies Allergies/Adverse Reactions: Allergies Allergy/AdvReac Type Severity Reaction Status Date / Time No Known Allergies Allergy Verified 11/23/18 16:10 - Home Medications Home Medications: Ambulatory Orders Albuterol Sulfate Inhaler - [Ventolin Hfa Inhaler -] 1 - 2 inh PO QID 11/23/18 Aspirin [ASA -] 81 mg PO DAILY 11/23/18 Budesonide/Formeterol Fumarate [SYMBICORT 160/4.5mcg -] 1 inh PO DAILY 11/23/18 Furosemide [Lasix] 40 mg PO DAILY 11/23/18 Gabapentin 100 mg PO DAILY 11/23/18 Glipizide 10 mg PO BID 11/23/18 Lisinopril [Prinivil] 10 mg PO DAILY 11/23/18 Metformin HCl [Glucophage] 500 mg PO BID 11/23/18 Multivitamins [Tab-A-Vit -] 1 tab PO DAILY 11/23/18 Salmeterol/Fluticasone [Advair 500Mcg/50Mcg -] 1 inh IH BID 11/23/18 Family Disease History - Family Disease History Family History: Denies Review of Systems - Review of Systems Constitutional: denies: Chills, Fever Eyes: reports: No Symptoms HENT: reports: No Symptoms Neck: reports: No Symptoms Cardiovascular: reports: Edema. denies: Chest Pain Respiratory: reports: Exercise Intolerance, SOB on Exertion, Wheezing. denies: Hemoptysis Gastrointestinal: reports: Bloating, Constipation. denies: Abdominal Pain, Diarrhea, Vomiting Genitourinary: reports: No Symptoms Physical Exam Vital Signs: Vital Signs Temperature 98.6 F 11/24/18 06:05 Pulse Rate 143 H 11/24/18 09:20 Respiratory Rate 18 11/24/18 09:20 Blood Pressure 103/62 11/24/18 09:20 O2 Sat by Pulse Oximetry (%) 96 11/24/18 09:20 Constitutional: Yes: Calm, Obese Eyes: Yes: Conjunctiva Clear, EOM Intact HENT: Yes: Atraumatic, Normocephalic. No: Thrush Neck: Yes: Supple Cardiovascular: Yes: Tachycardia Respiratory: Yes: Wheezes Gastrointestinal: Yes: Normal Bowel Sounds, Distention. No: Tenderness Extremities: Yes: Erythema Edema: Yes Edema: LLE: 1+, RLE: 1+ Neurological: Yes: Alert Labs: CBC, BMP 11/24/18 09:54 11/24/18 09:54 Imaging - Results Chest X-ray: Report Reviewed Cat Scan: Report Reviewed (no PE, ILD with mediastinal and hilar adenopathy) Ultrasound: Pending Problem List - Problems (1) Acute respiratory failure with hypoxia and hypercapnia Code(s): J96.01 - ACUTE RESPIRATORY FAILURE WITH HYPOXIA; J96.02 - ACUTE RESPIRATORY FAILURE WITH HYPERCAPNIA (2) Atrial flutter Code(s): I48.92 - UNSPECIFIED ATRIAL FLUTTER (3) Elevated LFTs Code(s): R94.5 - ABNORMAL RESULTS OF LIVER FUNCTION STUDIES (4) Pneumonia Code(s): J18.9 - PNEUMONIA, UNSPECIFIED ORGANISM (5) COPD exacerbation Code(s): J44.1 - CHRONIC OBSTRUCTIVE PULMONARY DISEASE W (ACUTE) EXACERBATION (6) Cellulitis Code(s): L03.90 - CELLULITIS, UNSPECIFIED (7) Morbid obesity Code(s): E66.01 - MORBID (SEVERE) OBESITY DUE TO EXCESS CALORIES Assessment/Plan respiratory symptoms may all be secondary to atrial flutter and volume overload but would continue coverage for pneumonia for now add vancomycin one dose for cellulitis check influenza antigen and urinary pneumonia antigen received rocephin/zithromax today continue rocephin , vancomycinone dose f/u cultures check duplex of legs, check abdominal ultrasound consider detox consult cardiology to manage tachycardia d/w Dr Gregg
[2018-11-24] MEDS ORDERED: chlordiazePOXIDE HCL 25 MG CAPSULE PO PRN (13:10)
[2018-11-24] MEDS ORDERED: chlordiazePOXIDE HCL 25 MG CAPSULE PO ONE (13:10)
[2018-11-24 13:19] LABS: URINE APPEARANCE CLEAR; URINE BILIRUBIN NEGATIVE (<2.0 mg/dL); URINE GLUCOSE (UA) NEGATIVE (NEGATIVE); URINE KETONE NEGATIVE (NEGATIVE); URINE LEUK ESTERASE NEGATIVE (NEGATIVE); URINE NITRITE NEGATIVE (NEGATIVE); URINE PROTEIN 1+ (NEGATIVE); URINE UROBILINOGEN 4.0 E.U/dl mg/dL (0.2-1.0)
[2018-11-24 13:22] LABS: URINE COLOR YELLOW
[2018-11-24] MEDS ORDERED: VANCOMYCIN 1,250 MG in DEXTROSE 5%-WATER - 250 ML IVPB ONE (13:30)
--- NOTE | 2018-11-24 13:32 | PN ---
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 HTN ILD MEDIASTINAL/HILAR ADENOPATHY RAPID AFLUTTER DM HTN CELLULITIS TRINH NOT COMPLIANT WITH CPAP TOBACCO ABUSE ETOH ABUSE ELEVATED LFTS PLAN IV ABX PER ID IV STEROIDS INHALED BRONCHODILATORS CARDIZEM AC RATE CONTROL PER CARDIOLOGY F/U ABGS BIPAP AT NIGHT AND PRN FOR RESPIRATORY DISTRESS CULTURES PFTS OUTPATIENT PET CT OUTPATIENT TO EVALUATE MEDIASTINAL/HILAR ADENOPATHY ECHO DAILY WT MONITOR LYTES,LFTS SMOKING CESSATION COUNSELED DR MCCAULEY Problem List - Problems (1) Acute on chronic respiratory failure with hypoxia and hypercapnia Code(s): J96.21 - ACUTE AND CHRONIC RESPIRATORY FAILURE WITH HYPOXIA; J96.22 - ACUTE AND CHRONIC RESPIRATORY FAILURE WITH HYPERCAPNIA (2) COPD exacerbation Code(s): J44.1 - CHRONIC OBSTRUCTIVE PULMONARY DISEASE W (ACUTE) EXACERBATION (3) Atrial flutter Code(s): I48.92 - UNSPECIFIED ATRIAL FLUTTER (4) Bilateral lower extremity edema Code(s): R60.0 - LOCALIZED EDEMA (5) COPD exacerbation Code(s): J44.1 - CHRONIC OBSTRUCTIVE PULMONARY DISEASE W (ACUTE) EXACERBATION (6) Cellulitis Code(s): L03.90 - CELLULITIS, UNSPECIFIED (7) Diabetes Code(s): E11.9 - TYPE 2 DIABETES MELLITUS WITHOUT COMPLICATIONS (8) Elevated LFTs Code(s): R94.5 - ABNORMAL RESULTS OF LIVER FUNCTION STUDIES (9) HTN (hypertension) Code(s): I10 - ESSENTIAL (PRIMARY) HYPERTENSION (10) Hyperlipidemia Code(s): E78.5 - HYPERLIPIDEMIA, UNSPECIFIED (11) Morbid obesity Code(s): E66.01 - MORBID (SEVERE) OBESITY DUE TO EXCESS CALORIES (12) New onset atrial flutter Code(s): I48.92 - UNSPECIFIED ATRIAL FLUTTER
[2018-11-24 13:46] LABS: EPI CELLS RARE /HPF (FEW); URINE HYALINE CAST 3 /lpf; URINE MUCUS RARE
--- NOTE | 2018-11-24 13:59 | CONS ---
DATE OF CONSULTATION: 11/23/2018 REFERRING PHYSICIAN: Brown Castañeda MD HISTORY: The patient is a 53-year-old white female with a past medical history of end-stage COPD on home O2 noncompliant, hypertension, obstructive sleep apnea not compliant with CPAP, hypertension, diabetes, hypothyroidism, longstanding history of tobacco use, previously smoked a pack to a pack and a half a day since early teens, currently smoking 1/2 pack a day admitted to [facility] with the complaint of a 3- to 4-day history of increasing shortness of breath, dyspnea on exertion. The patient apparently for the past 3-4 days has felt increasing shortness of breath, cough, and wheezing. She was placed initially on amoxicillin and started on prednisone without any improvement. She presented to the emergency room in the ER with the above complaints. In the ER, she was found to be in moderate respiratory distress. Her lips were noted to be cyanotic. She was also noted to have some confusion. She had blood gases performed, which revealed acute on chronic hypoxemic, hypercapnic respiratory failure. She was placed on BiPAP. Patient also has a history of mechanical fall last Saturday. There was no loss of consciousness. The patient denies any recent travel. There is no history of DVT or PE in the past. Apparently, she was exposed to cleaning chemicals last Saturday. There is no fever, weight loss, or night sweats. No hemoptysis. No chest pains or palpitations. PAST MEDICAL HISTORY: Includes advanced COPD on home O2, noncompliant, hypertension, diabetes, hypothyroidism, tobacco dependence, obstructive sleep apnea noncompliant with CPAP. REVIEW OF SYSTEMS: Positive orthopnea, positive dyspnea, positive cough, positive wheezing. No chest pain, no palpitations, no fever, no chills, no hemoptysis. Positive lower extremity edema. CURRENT MEDICATIONS: Include Symbicort, Solu-Medrol, Prinivil, ceftriaxone, vancomycin, Eliquis, Neurontin, Librium, Cardizem, Lasix, aspirin, and Protonix. PHYSICAL EXAMINATION: General: The patient is a well-developed, well-nourished female awake and alert mildly dyspneic but in no acute distress. Vital Signs: She is currently afebrile. Blood pressure 111/63, heart rate 143, respiratory rate 22, O2 saturation 97% on nasal cannula 2 L. HEENT: Normocephalic and atraumatic. Neck: Supple. Heart: Tachycardic. S1, S2. Chest: Bilateral wheezes with diminished breath sounds bilaterally. Abdomen: Soft. Bowel sounds positive. Extremities: Bilateral lower extremity edema with erythema. LABORATORIES: WBC 6.9, hemoglobin 14.2, hematocrit 46.5 with a platelet count of 162,000. D-dimer 4341. Initial blood gas pH 7.27, PCO2 of 67, PO2 of 96, bicarbonate 30, and saturation 95.9 with recent pH 7.29, PCO2 of 67, PO2 of 84, bicarbonate 31, saturation 94.9 with BiPAP and IPAP 12, EPAP 5, rate 12 on 35% oxygen. Chest CT performed. No evidence of pulmonary emboli. There are increased interstitial markings bilaterally and mediastinal hilar adenopathy. IMPRESSION: 1. Acute on chronic hypoxemic, hypercapnic respiratory failure secondary to chronic obstructive pulmonary disease with acute exacerbation. 2. Rapid atrial fibrillation, flutter. 3. Likely pulmonary hypertension. 4. Advanced chronic obstructive pulmonary disease O2 dependent. 5. Diabetes. 6. Hypertension. 7. Tobacco abuse. 8. Obstructive sleep apnea, noncompliant with CPAP. 9. Likely underlying interstitial lung disease. 10. Mediastinal hilar adenopathy question reactive, question sarcoid, question malignant. 11. Alcohol abuse. 12. Cellulitis. 13. Elevated liver function tests. PLAN: IV steroids. Inhaled bronchodilators. Supplemental O2. BiPAP at night as well as p.r.n. Rate control as per Cardiology. Continue Cardizem, anticoagulation. Continue Lasix. Echocardiogram. Obtain follow up chest x-ray. Chest ct outpatient If no improvement, PET scan. Also PFTs as an outpatient. Smoking cessation counseled Cautious use of Librium. Antibiotics as per Infectious Disease. Monitor LFTs. Daily weight. BRUNA MCCAULEY M.D. EDITH/[id number] MTDD
--- NOTE | 2018-11-24 14:23 | ECHO ---
Name: MELECIO MALLORY Exam:Adult Echocardiogram Study Date: 11/24/2018 10:47 AM Age: 53 yrs Reason For Study: New onset A FIB/a flutter Height: 68 in Weight: 275 lb BSA: 2.3 m2 BP: 107/84 mmHg MMode/2D Measurements & Calculations IVSd: 0.78 cm Ao root diam: 3.2 cm LVIDd: 4.9 cm LA dimension: 4.1 cm LVIDs: 3.6 cm LVPWd: 1.1 cm IVSs: 0.94 cm LVPWs: 1.1 cm EDV(Teich): 112.9 ml ESV(Teich): 52.8 ml Doppler Measurements & Calculations Ao V2 max: 97.9 cm/sec MR max wander: 407.2 cm/sec Ao max P.8 mmHg MR max P.4 mmHg Ao V2 mean: 69.0 cm/sec Ao mean P.2 mmHg Ao V2 VTI: 9.8 cm TR max wander: 255.6 cm/sec TR max P.5 mmHg Left Ventricle The left ventricle is not well visualized. Right Ventricle The right ventricular systolic function is moderately reduced. Atria Normal left and right atrial size and function. Mitral Valve The mitral valve is grossly normal. Tricuspid Valve The tricuspid valve is not well visualized, but is grossly normal. Right ventricular systolic pressur e is elevated at 50 mmhg. There is moderate tricuspid regurgitation. There is moderate pulmonary hypertens ion. Aortic Valve The aortic valve is not well visualized. Pulmonic Valve The pulmonic valve is not well visualized. Great Vessels The aortic root is not well visualized. Pericardium/Pleura There is no pericardial effusion. Interpretation Summary Limited study with very limited views of the LV. LV function cannot be assessed due to technical diff iculties. The patient was tachycardic during the exam. There is moderate RV hypokinesis. There is moderate pulmonary hypertension. Christiano Hernandez 11/24/2018 02:23 PM
--- NOTE | 2018-11-24 14:29 | EKG ---
Test Reason : Blood Pressure : / mmHG Vent. Rate : 108 BPM Atrial Rate : 288 BPM P-R Int : 000 ms QRS Dur : 082 ms QT Int : 272 ms P-R-T Axes : 000 121 056 degrees QTc Int : 364 ms ATRIAL FLUTTER WITH VARIABLE A-V BLOCK LOW VOLTAGE QRS LEFT POSTERIOR FASCICULAR BLOCK NONSPECIFIC T WAVE ABNORMALITY ABNORMAL ECG WHEN COMPARED WITH ECG OF 23-NOV-2018 19:11, PREVIOUS ECG HAS UNDETERMINED RHYTHM, NEEDS REVIEW Confirmed by Christiano Hernandez ([id number]) on 11/24/2018 2:29:29 PM Referred By: Confirmed By:Christiano Hernandez
--- NOTE | 2018-11-24 14:31 | EKG ---
Test Reason : Blood Pressure : / mmHG Vent. Rate : 145 BPM Atrial Rate : 159 BPM P-R Int : 000 ms QRS Dur : 080 ms QT Int : 328 ms P-R-T Axes : 000 124 029 degrees QTc Int : 509 ms POOR DATA QUALITY, INTERPRETATION MAY BE ADVERSELY AFFECTED ATRIAL FIBRILLATION WITH RAPID VENTRICULAR RESPONSE ABNORMAL ECG WHEN COMPARED WITH ECG OF 23-NOV-2018 16:11, CURRENT UNDETERMINED RHYTHM PRECLUDES RHYTHM COMPARISON, NEEDS REVIEW ST ELEVATION NOW PRESENT IN INFERIOR LEADS ST NO LONGER DEPRESSED IN LATERAL LEADS NONSPECIFIC T WAVE ABNORMALITY, IMPROVED IN ANTERIOR LEADS NONSPECIFIC T WAVE ABNORMALITY, WORSE IN LATERAL LEADS Confirmed by Christiano Hernandez ([id number]) on 11/24/2018 2:31:33 PM Referred By: Confirmed By:Christiano Hernandez
--- NOTE | 2018-11-24 14:32 | EKG ---
Test Reason : Blood Pressure : / mmHG Vent. Rate : 152 BPM Atrial Rate : 152 BPM P-R Int : 114 ms QRS Dur : 076 ms QT Int : 276 ms P-R-T Axes : 088 121 041 degrees QTc Int : 438 ms SINUS TACHYCARDIA WITH FUSION COMPLEXES POSSIBLE RIGHT VENTRICULAR HYPERTROPHY NONSPECIFIC T WAVE ABNORMALITY ABNORMAL ECG WHEN COMPARED WITH ECG OF 28-FEB-2010 15:08, FUSION COMPLEXES ARE NOW PRESENT VENT. RATE HAS INCREASED BY [address] NOW DEPRESSED IN LATERAL LEADS NONSPECIFIC T WAVE ABNORMALITY, IMPROVED IN LATERAL LEADS Confirmed by Christiano Hernandez ([id number]) on 11/24/2018 2:32:11 PM Referred By: Confirmed By:Christiano Hernandez
[2018-11-24] MEDS ORDERED: chlordiazePOXIDE HCL 25 MG CAPSULE ONE (15:10)
[2018-11-24] MEDS ORDERED: chlordiazePOXIDE HCL 25 MG CAPSULE PO SCH (17:00)
[2018-11-24] MEDS: chlordiazePOXIDE HCL 25 MG CAPSULE PO SCH ×2 (19:14→22:45)
[2018-11-24] MEDS ORDERED: CHLORHEXIDINE GLUCONATE 4% CLEANSER FOR DECOLONIZATION TP SCH (22:00)
[2018-11-24] MEDS: INSULIN (LEVEMIR) 100 UNITS/ML UNITS SQ SCH (22:12)
[2018-11-25] MEDS: methylPREDNISolone NA SUCC 40 MG/1 ML VIAL IVPUSH SCH ×3 (01:48→22:03)
[2018-11-25] MEDS: dilTIAZem HCL 30 MG TABLET (FP) PO SCH ×4 (01:48→18:15)
[2018-11-25] MEDS: chlordiazePOXIDE HCL 25 MG CAPSULE PO SCH ×4 (06:21→22:12)
[2018-11-25] MEDS: INSULIN SLIDING SCALE (NOVOLOG) 1 VIAL SQ SCH ×4 (06:32→22:11)
[2018-11-25 07:31] LABS: ALBUMIN 3.6 g/dl (3.4-5.0); ALK PHOS 119 U/L (45-117); ANION GAP 7 MMOL/L (8-16); BILIRUBIN,TOTAL 0.5 mg/dL (0.2-1); BLOOD UREA NITROGEN 66 mg/dL (7-18); CALCIUM 8.4 mg/dL (8.5-10.1); CHLORIDE 94 mmol/L (98-107); CO2 30 mmol/L (21-32); CREATININE 2.2 mg/dL (0.55-1.3); GLUCOSE,RANDOM 202 mg/dL (74-106); POTASSIUM 5.7 mmol/L (3.5-5.1); SGOT/AST 67 U/L (15-37); SGPT/ALT 76 U/L (13-61); SODIUM 131 mmol/L (136-145); TOT PROT 7.1 g/dl (6.4-8.2)
[2018-11-25 07:43] LABS: BASO % 0.2 % (0-2.0); HEMATOCRIT 45.7 % (32.4-45.2); HEMOGLOBIN 14.1 GM/dL (10.7-15.3); LYMPH % 7.1 % (8-40); MCHC 30.9 g/dl (32.0-36.0); MEAN CELL VOLUME 106.7 fl (80-96); MEAN PLT VOLUME 9.3 fl (7.5-11.1); MONO % 6.9 % (3.8-10.2); NEUT % 85.8 % (42.8-82.8); PLATELET COUNT 171 K/MM3 (134-434); RBC 4.29 M/mm3 (3.60-5.2); RDW 16.3 % (11.6-15.6)
[2018-11-25 09:06] LABS: ARTERIAL BLD GAS O2 SATURATION 95.2 % (90-98.9); ARTERIAL BLOOD GAS BASE EXCESS -1.6 meq/l (-2-2); ARTERIAL BLOOD GAS PO2 93.1 mmHg (80-100)
[2018-11-25 09:07] LABS: ALLENS TEST POSITIVE
[2018-11-25] MEDS ORDERED: DEXTROSE 5%-WATER 100 ML IVPB ONE (09:10)
--- NOTE | 2018-11-25 09:37 | PN ---
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, Physician History of Present Illness: pulmonary drowsy, mildly dyspneic on O2 via vm - Current Medication List Current Medications: Active Medications Apixaban (Eliquis -) 5 mg PO BID [facility] Last Admin: 11/24/18 22:12 Dose: 5 mg Aspirin (Asa -) 81 mg PO DAILY [facility] Last Admin: 11/24/18 12:04 Dose: 81 mg Budesonide/Formoterol Fumarate (Symbicort 160/4.5mcg -) 1 puff IH DAILY [facility] Last Admin: 11/24/18 12:04 Dose: 1 puff Chlordiazepoxide HCl (Librium -) 50 mg PO [id number] [facility] Stop: 11/25/18 11:01 Last Admin: 11/25/18 06:21 Dose: 50 mg Chlordiazepoxide HCl (Librium -) 25 mg PO Q3S-VUR [facility] Stop: 11/26/18 11:01 Chlordiazepoxide HCl (Librium -) 15 mg PO [id number] [facility] Stop: 11/27/18 11:01 Chlordiazepoxide HCl (Librium -) 25 mg PO Q4H PRN PRN Reason: WITHDRAWAL(CONT SUBST) Stop: 11/27/18 13:09 Chlordiazepoxide HCl (Librium -) 10 mg PO [id number] [facility] Stop: 11/28/18 11:01 Diltiazem HCl (Cardizem -) 30 mg PO Q6HPO [facility] Last Admin: 11/25/18 06:21 Dose: 30 mg Furosemide (Lasix Injection -) 40 mg IVPUSH DAILY [facility] Last Admin: 11/24/18 12:04 Dose: 40 mg Gabapentin (Neurontin -) 100 mg PO DAILY [facility] Last Admin: 11/24/18 12:04 Dose: 100 mg Diltiazem HCl 125 mg/ Sodium (Chloride) 125 mls @ 5 mls/hr IVPB TITR [facility]; Protocol Last Titration: 11/24/18 13:45 Dose: 0 mg/hr, 0 mls/hr Ceftriaxone Sodium 2 gm/ (Dextrose) 100 mls @ 200 mls/hr IVPB DAILY [facility]; Protocol Insulin Aspart (Novolog Vial Sliding Scale -) 1 vial SQ ACHS [facility]; Protocol Last Admin: 11/25/18 06:32 Dose: 4 units Insulin Detemir (Levemir Vial) 10 units SQ HS [facility] Last Admin: 11/24/18 22:12 Dose: 10 units Lisinopril (Prinivil) 10 mg PO DAILY [facility] Last Admin: 11/24/18 12:04 Dose: 10 mg Methylprednisolone Sodium Succinate (Solu-Medrol -) 40 mg IVPUSH Q8H-IV [facility] Last Admin: 11/25/18 01:48 Dose: 40 mg Multivitamins/Minerals/Vitamin C (Tab-A-Vit -) 1 tab PO DAILY [facility] Last Admin: 11/24/18 12:04 Dose: 1 tab Pantoprazole Sodium (Protonix -) 20 mg PO DAILY [facility] Last Admin: 11/24/18 12:21 Dose: 20 mg - Objective Vital Signs: Vital Signs Temperature 97.6 F 11/25/18 05:41 Pulse Rate 96 H 11/25/18 05:41 Respiratory Rate 20 11/25/18 05:41 Blood Pressure 94/37 L 11/25/18 05:41 O2 Sat by Pulse Oximetry (%) 96 11/25/18 01:54 Constitutional: Yes: Well Nourished, Calm Eyes: Yes: WNL HENT: Yes: WNL Neck: Yes: WNL Cardiovascular: Yes: Tachycardia, S1, S2 Respiratory: Yes: Diminished, Wheezes (scattered raiza wheezes) Gastrointestinal: Yes: Normal Bowel Sounds, Soft Extremities: Yes: Erythema Edema: Yes Labs: CBC, BMP 11/25/18 05:30 11/25/18 05:30 INR, PTT INR 1.13 (0.83-1.09) H 11/23/18 16:40 Laboratory Tests 11/25/18 08:54 ABG pH 7.16 L* ABG pCO2 at Pt Temp 87.0 H* D ABG pO2 at Pt Temp 93.1 ABG HCO3 29.9 H ABG O2 Sat (Measured) 95.2 Oxygen Flow Rate Yes Problem List - Problems (1) Acute on chronic respiratory failure with hypoxia and hypercapnia Code(s): J96.21 - ACUTE AND CHRONIC RESPIRATORY FAILURE WITH HYPOXIA; J96.22 - ACUTE AND CHRONIC RESPIRATORY FAILURE WITH HYPERCAPNIA (2) COPD exacerbation Code(s): J44.1 - CHRONIC OBSTRUCTIVE PULMONARY DISEASE W (ACUTE) EXACERBATION (3) Atrial flutter Code(s): I48.92 - UNSPECIFIED ATRIAL FLUTTER (4) Bilateral lower extremity edema Code(s): R60.0 - LOCALIZED EDEMA (5) COPD exacerbation Code(s): J44.1 - CHRONIC OBSTRUCTIVE PULMONARY DISEASE W (ACUTE) EXACERBATION (6) Cellulitis Code(s): L03.90 - CELLULITIS, UNSPECIFIED (7) Diabetes Code(s): E11.9 - TYPE 2 DIABETES MELLITUS WITHOUT COMPLICATIONS (8) Elevated LFTs Code(s): R94.5 - ABNORMAL RESULTS OF LIVER FUNCTION STUDIES (9) HTN (hypertension) Code(s): I10 - ESSENTIAL (PRIMARY) HYPERTENSION (10) Hyperlipidemia Code(s): E78.5 - HYPERLIPIDEMIA, UNSPECIFIED (11) Morbid obesity Code(s): E66.01 - MORBID (SEVERE) OBESITY DUE TO EXCESS CALORIES (12) New onset atrial flutter Code(s): I48.92 - UNSPECIFIED ATRIAL FLUTTER Assessment/Plan IMP ACUTE ON CHRONIC HYPOXEMIC/HYPERCAPNEIC RESPIRATORY FAILURE ADVANCED COPD O2 DEPENDENT LIKELY PULMONARY HTN ILD MEDIASTINAL/HILAR ADENOPATHY RAPID AFLUTTER DM HTN CELLULITIS TRINH NOT COMPLIANT WITH CPAP TOBACCO ABUSE ETOH ABUSE ELEVATED LFTS PITO PLAN IV ABX PER ID IV STEROIDS INHALED BRONCHODILATORS CARDIZEM AC RATE CONTROL PER CARDIOLOGY F/U ABGS BIPAP AT NIGHT AND PRN FOR RESPIRATORY DISTRESS PFTS OUTPATIENT PET CT OUTPATIENT TO EVALUATE MEDIASTINAL/HILAR ADENOPATHY ECHO DAILY WT MONITOR LYTES,LFTS,RENAL FUNCTION RENAL EVALUATION DR MCCAULEY Problem List - Problems (1) Acute on chronic respiratory failure with hypoxia and hypercapnia Code(s): J96.21 - ACUTE AND CHRONIC RESPIRATORY FAILURE WITH HYPOXIA; J96.22 - ACUTE AND CHRONIC RESPIRATORY FAILURE WITH HYPERCAPNIA (2) COPD exacerbation Code(s): J44.1 - CHRONIC OBSTRUCTIVE PULMONARY DISEASE W (ACUTE) EXACERBATION (3) Atrial flutter Code(s): I48.92 - UNSPECIFIED ATRIAL FLUTTER (4) Bilateral lower extremity edema Code(s): R60.0 - LOCALIZED EDEMA (5) COPD exacerbation Code(s): J44.1 - CHRONIC OBSTRUCTIVE PULMONARY DISEASE W (ACUTE) EXACERBATION (6) Cellulitis Code(s): L03.90 - CELLULITIS, UNSPECIFIED (7) Diabetes Code(s): E11.9 - TYPE 2 DIABETES MELLITUS WITHOUT COMPLICATIONS (8) Elevated LFTs Code(s): R94.5 - ABNORMAL RESULTS OF LIVER FUNCTION STUDIES (9) HTN (hypertension) Code(s): I10 - ESSENTIAL (PRIMARY) HYPERTENSION (10) Hyperlipidemia Code(s): E78.5 - HYPERLIPIDEMIA, UNSPECIFIED (11) Morbid obesity Code(s): E66.01 - MORBID (SEVERE) OBESITY DUE TO EXCESS CALORIES (12) New onset atrial flutter Code(s): I48.92 - UNSPECIFIED ATRIAL FLUTTER
[2018-11-25] MEDS ORDERED: SODIUM CHLORIDE 0.45% 1,000 ML IV SCH (09:45)
[2018-11-25] MEDS ORDERED: SODIUM POLYSTYRENE SULFONATE 15 GM/60 ML BOTTLE ONE (10:10)
[2018-11-25] MEDS: PANTOPRAZOLE 20 MG TABLET (FP) PO SCH (10:17)
[2018-11-25] MEDS: GABAPENTIN 100 MG CAPSULE (FP) PO SCH (10:17)
[2018-11-25] MEDS: MULTIVITAMINS (DAILY MVI) TABLET (FP) PO SCH (10:17)
[2018-11-25] MEDS: ASPIRIN 81 MG CHEWABLE TABLETS PO SCH (10:17)
[2018-11-25] MEDS: APIXABAN 5 MG TABLET PO SCH ×2 (10:17→22:03)
[2018-11-25] MEDS: BUDESONIDE/FORMETEROL FUMARATE 160/4.5 mcg INHALER IH SCH (10:18)
[2018-11-25] MEDS: CEFTRIAXONE 2 GM in DEXTROSE 5%-WATER 100 ML IVPB SCH (10:18)
[2018-11-25 10:23] LABS: ARTERIAL BLOOD GAS pH 7.16 (7.35-7.45)
[2018-11-25] MEDS ORDERED: SODIUM POLYSTYRENE SULFONATE 15 GM/60 ML BOTTLE PO ONE (10:30)
--- NOTE | 2018-11-25 10:33 | PN ---
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 (short form) - Note 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: feels better today less dyspneic eating breakfast no fevers no cough Vital Signs Period Temp Pulse Resp BP Sys/Gregorio Pulse Ox Last 24 Hr 97.3 F-98 F 50-143 16-22 84-120/37-79 92-97 cor-rrr lungs decreased bs at bases abd firm, nt ext +edema +erythema diffusely of both legs extending to abdomen CBC, BMP 11/25/18 05:30 11/25/18 05:30 Laboratory Tests 11/24/18 11/25/18 12:50 05:30 Random Vancomycin 13.4 L Influenza A (Rapid) Negative Influenza B (Rapid) Negative Microbiology 11/24/18 12:50 Urine - Urine Clean Catch Urine Culture - Final NO GROWTH OBTAINED 11/24/18 04:00 Blood - Peripheral Venous Blood Culture - Preliminary NO GROWTH OBTAINED AFTER 24 HOURS, INCUBATION TO CONTINUE FOR 4 DAYS. 11/24/18 04:00 Blood - Peripheral Venous Blood Culture - Preliminary NO GROWTH OBTAINED AFTER 24 HOURS, INCUBATION TO CONTINUE FOR 4 DAYS. 11/24/18 12:25 Urine For Antigen Detection Legionella Antigen - Final 11/24/18 12:25 Urine For Antigen Detection Streptococcus pneumoniae Antigen (M - Final a/p bilateral cellulitis COPD exacerbation aflutter thad etoh use continue rocephin for cellulitis doubt pneumonia consider renal eval for thad (s/p CTA yesterday) Problem List - Problems (1) Acute respiratory failure with hypoxia and hypercapnia Code(s): J96.01 - ACUTE RESPIRATORY FAILURE WITH HYPOXIA; J96.02 - ACUTE RESPIRATORY FAILURE WITH HYPERCAPNIA (2) Atrial flutter Code(s): I48.92 - UNSPECIFIED ATRIAL FLUTTER (3) Elevated LFTs Code(s): R94.5 - ABNORMAL RESULTS OF LIVER FUNCTION STUDIES (4) Pneumonia Code(s): J18.9 - PNEUMONIA, UNSPECIFIED ORGANISM (5) COPD exacerbation Code(s): J44.1 - CHRONIC OBSTRUCTIVE PULMONARY DISEASE W (ACUTE) EXACERBATION (6) Cellulitis Code(s): L03.90 - CELLULITIS, UNSPECIFIED (7) Morbid obesity Code(s): E66.01 - MORBID (SEVERE) OBESITY DUE TO EXCESS CALORIES
--- NOTE | 2018-11-25 11:54 | PN ---
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, Physician History of Present Illness: pt seen/ examined in tele on bipap all f/u noted now in acute renal failure also i d/fabby enalapril / lasix and started on mild hydration renal consult also requested pt had cta done in er on bipap. - Current Medication List Current Medications: Active Medications Apixaban (Eliquis -) 5 mg PO BID [facility] Last Admin: 11/25/18 10:17 Dose: 5 mg Aspirin (Asa -) 81 mg PO DAILY [facility] Last Admin: 11/25/18 10:17 Dose: 81 mg Budesonide/Formoterol Fumarate (Symbicort 160/4.5mcg -) 1 puff IH DAILY [facility] Last Admin: 11/25/18 10:18 Dose: 1 puff Chlordiazepoxide HCl (Librium -) 25 mg PO [id number] [facility] Stop: 11/26/18 11:01 Chlordiazepoxide HCl (Librium -) 15 mg PO [id number] [facility] Stop: 11/27/18 11:01 Chlordiazepoxide HCl (Librium -) 25 mg PO Q4H PRN PRN Reason: WITHDRAWAL(CONT SUBST) Stop: 11/27/18 13:09 Chlordiazepoxide HCl (Librium -) 10 mg PO [id number] [facility] Stop: 11/28/18 11:01 Diltiazem HCl (Cardizem -) 30 mg PO Q6HPO [facility] Last Admin: 11/25/18 06:21 Dose: 30 mg Gabapentin (Neurontin -) 100 mg PO DAILY [facility] Last Admin: 11/25/18 10:17 Dose: 100 mg Diltiazem HCl 125 mg/ Sodium (Chloride) 125 mls @ 5 mls/hr IVPB TITR [facility]; Protocol Last Titration: 11/24/18 13:45 Dose: 0 mg/hr, 0 mls/hr Ceftriaxone Sodium 2 gm/ (Dextrose) 100 mls @ 200 mls/hr IVPB DAILY [facility]; Protocol Last Admin: 11/25/18 10:18 Dose: 200 mls/hr Sodium Chloride (1/2 Normal Saline) 1,000 mls @ 100 mls/hr IV ASDIR [facility] Last Admin: 11/25/18 10:17 Dose: 100 mls/hr Insulin Aspart (Novolog Vial Sliding Scale -) 1 vial SQ ACHS [facility]; Protocol Last Admin: 11/25/18 06:32 Dose: 4 units Insulin Detemir (Levemir Vial) 10 units SQ HS [facility] Last Admin: 11/24/18 22:12 Dose: 10 units Methylprednisolone Sodium Succinate (Solu-Medrol -) 40 mg IVPUSH Q6H-IV [facility] Multivitamins/Minerals/Vitamin C (Tab-A-Vit -) 1 tab PO DAILY [facility] Last Admin: 11/25/18 10:17 Dose: 1 tab Pantoprazole Sodium (Protonix -) 20 mg PO DAILY [facility] Last Admin: 11/25/18 10:17 Dose: 20 mg - Objective Vital Signs: Vital Signs Temperature 97.6 F 11/25/18 05:41 Pulse Rate 96 H 11/25/18 05:41 Respiratory Rate 20 11/25/18 05:41 Blood Pressure 94/37 L 11/25/18 05:41 O2 Sat by Pulse Oximetry (%) 96 11/25/18 01:54 Constitutional: Yes: Mild Distress Eyes: Yes: Conjunctiva Clear Neck: Yes: Supple Cardiovascular: Yes: Pulse Irregular Respiratory: Yes: On BiPap, Poor Air Entry, Wheezes Gastrointestinal: Yes: Soft, Abdomen, Obese Edema: LLE: Trace, RLE: Trace Integumentary: Yes: Other (shiny skin) Neurological: Yes: Alert Psychiatric: Yes: Alert Labs: CBC, BMP 11/25/18 05:30 11/25/18 05:30 INR, PTT INR 1.13 (0.83-1.09) H 11/23/18 16:40 Problem List - Problems (1) Acute respiratory failure with hypoxia and hypercapnia Code(s): J96.01 - ACUTE RESPIRATORY FAILURE WITH HYPOXIA; J96.02 - ACUTE RESPIRATORY FAILURE WITH HYPERCAPNIA (2) Atrial flutter Code(s): I48.92 - UNSPECIFIED ATRIAL FLUTTER (3) Bilateral lower extremity edema Code(s): R60.0 - LOCALIZED EDEMA (4) COPD exacerbation Code(s): J44.1 - CHRONIC OBSTRUCTIVE PULMONARY DISEASE W (ACUTE) EXACERBATION (5) Diabetes Code(s): E11.9 - TYPE 2 DIABETES MELLITUS WITHOUT COMPLICATIONS (6) Elevated LFTs Code(s): R94.5 - ABNORMAL RESULTS OF LIVER FUNCTION STUDIES (7) Hyperlipidemia Code(s): E78.5 - HYPERLIPIDEMIA, UNSPECIFIED (8) Morbid obesity Code(s): E66.01 - MORBID (SEVERE) OBESITY DUE TO EXCESS CALORIES (9) Acute renal failure Code(s): N17.9 - ACUTE KIDNEY FAILURE, UNSPECIFIED (10) Pulmonary hypertension Code(s): I27.20 - PULMONARY HYPERTENSION, UNSPECIFIED Assessment/Plan Bipap abx d/c lasix/ layla fluids renal consult detox with librium steroids rubens exalate echo - moderate pulmonary hypertension overall condition stable but gaurded will follow discussed with nursing staff also
--- NOTE | 2018-11-25 15:19 | PN ---
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, Physician Chief Complaint: Pt alert; denies chest pain; + SOB; c/o leg heaviness. History of Present Illness: 53 YOF with h/o COPD (placed on steroid course 2 days ago without relief) acute/ chronic alcoholism (several glasses of rum daily), long-term cigarette smoker, sleep apnea, morbid obesity, DM, HTN, hyperlipidemia, cellulitis, metabolic syndrome, who p/w SOB and wheezing similar to her prior COPD exacerbation. She additionally notes awakening in the middle of the night last night with visual hallucinations. She additionally notes abdominal swelling recently, believes she has an abdominal infection but does not know what kind. Denies h/o heart arrhythmia. She has noticed her lips are more blue than normal. - Current Medication List Current Medications: Active Medications Apixaban (Eliquis -) 5 mg PO BID [facility] Last Admin: 11/25/18 10:17 Dose: 5 mg Aspirin (Asa -) 81 mg PO DAILY [facility] Last Admin: 11/25/18 10:17 Dose: 81 mg Budesonide/Formoterol Fumarate (Symbicort 160/4.5mcg -) 1 puff IH DAILY [facility] Last Admin: 11/25/18 10:18 Dose: 1 puff Chlordiazepoxide HCl (Librium -) 25 mg PO [id number] [facility] Stop: 11/26/18 11:01 Chlordiazepoxide HCl (Librium -) 15 mg PO [id number] [facility] Stop: 11/27/18 11:01 Chlordiazepoxide HCl (Librium -) 25 mg PO Q4H PRN PRN Reason: WITHDRAWAL(CONT SUBST) Stop: 11/27/18 13:09 Chlordiazepoxide HCl (Librium -) 10 mg PO [id number] [facility] Stop: 11/28/18 11:01 Diltiazem HCl (Cardizem -) 30 mg PO Q6HPO [facility] Last Admin: 11/25/18 14:30 Dose: 30 mg Gabapentin (Neurontin -) 100 mg PO DAILY [facility] Last Admin: 11/25/18 10:17 Dose: 100 mg Ceftriaxone Sodium 2 gm/ (Dextrose) 100 mls @ 200 mls/hr IVPB DAILY [facility]; Protocol Last Admin: 11/25/18 10:18 Dose: 200 mls/hr Insulin Aspart (Novolog Vial Sliding Scale -) 1 vial SQ ACHS [facility]; Protocol Last Admin: 11/25/18 06:32 Dose: 4 units Insulin Detemir (Levemir Vial) 10 units SQ HS [facility] Last Admin: 11/24/18 22:12 Dose: 10 units Methylprednisolone Sodium Succinate (Solu-Medrol -) 40 mg IVPUSH Q6H-IV [facility] Multivitamins/Minerals/Vitamin C (Tab-A-Vit -) 1 tab PO DAILY [facility] Last Admin: 11/25/18 10:17 Dose: 1 tab Pantoprazole Sodium (Protonix -) 20 mg PO DAILY [facility] Last Admin: 11/25/18 10:17 Dose: 20 mg - Objective Vital Signs: Vital Signs Temperature 98.6 F 11/25/18 10:00 Pulse Rate 70 11/25/18 10:00 Respiratory Rate 20 11/25/18 10:00 Blood Pressure 100/74 11/25/18 10:00 O2 Sat by Pulse Oximetry (%) 96 11/25/18 01:54 Labs: CBC, BMP 11/25/18 05:30 11/25/18 05:30 INR, PTT INR 1.13 (0.83-1.09) H 11/23/18 16:40 Problem List - Problems (1) Atrial flutter Assessment/Plan: On IV diltiazem and PO diltiazem for HR control. On apixaban for anticoagulation. ECHO: unable to assess LVEF; repeat when HR better-controoled (if still difficult to read, will get MUGA). CT: no PE Code(s): I48.92 - UNSPECIFIED ATRIAL FLUTTER (2) Morbid obesity Code(s): E66.01 - MORBID (SEVERE) OBESITY DUE TO EXCESS CALORIES (3) COPD exacerbation Assessment/Plan: bronchodilators, O2, steroids per label fuser tender. Code(s): J44.1 - CHRONIC OBSTRUCTIVE PULMONARY DISEASE W (ACUTE) EXACERBATION (4) Hyperlipidemia Code(s): E78.5 - HYPERLIPIDEMIA, UNSPECIFIED (5) HTN (hypertension) Code(s): I10 - ESSENTIAL (PRIMARY) HYPERTENSION (6) Diabetes Code(s): E11.9 - TYPE 2 DIABETES MELLITUS WITHOUT COMPLICATIONS (7) [place] cardiac risk >20% in next 10 years Assessment/Plan: Follow lipid profile. TNI negative x 2. BP and glucose control. Smoking cessation. Dietary consult; weight loss. Exercise will be important in the future. Coronary artery evaluation when stable (stress MIBI). Code(s): Z91.89 - OTH PERSONAL RISK FACTORS, NOT ELSEWHERE CLASSIFIED (8) Elevated LFTs Code(s): R94.5 - ABNORMAL RESULTS OF LIVER FUNCTION STUDIES (9) Cigarette nicotine dependence Assessment/Plan: The importance of stopping was discussed (pt's mother was in room; pt says she gets defensive, beacuse her mother is always lecturing her). Code(s): F17.210 - NICOTINE DEPENDENCE, CIGARETTES, UNCOMPLICATED (10) Alcoholism Assessment/Plan: Detox protocol. Code(s): F10.20 - ALCOHOL DEPENDENCE, UNCOMPLICATED (11) Cellulitis Assessment/Plan: On antibiotics; f/u with ID. Code(s): L03.90 - CELLULITIS, UNSPECIFIED (12) Sleep apnea Assessment/Plan: workup, if not already diagnosed. Code(s): G47.30 - SLEEP APNEA, UNSPECIFIED (13) Ascites Code(s): R18.8 - OTHER ASCITES (14) Interstitial lung disease Assessment/Plan: F/u with label fuser tender. R/o sarcoid. Rx for sleep apnea. Code(s): J84.9 - INTERSTITIAL PULMONARY DISEASE, UNSPECIFIED
--- NOTE | 2018-11-25 15:44 | PN ---
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, Physician Chief Complaint: Pt alert; anxious; c/o leg discomfort. History of Present Illness: 53 YOF with h/o COPD (placed on steroid course 2 days ago without relief) acute/ chronic alcoholism (several glasses of rum daily), long-term cigarette smoker, sleep apnea, morbid obesity, DM, HTN, hyperlipidemia, cellulitis, metabolic syndrome, who p/w SOB and wheezing similar to her prior COPD exacerbation. She additionally notes awakening in the middle of the night last night with visual hallucinations. She additionally notes abdominal swelling recently, believes she has an abdominal infection but does not know what kind. Denies h/o heart arrhythmia. She has noticed her lips are more blue than normal. - Current Medication List Current Medications: Active Medications Apixaban (Eliquis -) 5 mg PO BID [facility] Last Admin: 11/25/18 10:17 Dose: 5 mg Aspirin (Asa -) 81 mg PO DAILY [facility] Last Admin: 11/25/18 10:17 Dose: 81 mg Budesonide/Formoterol Fumarate (Symbicort 160/4.5mcg -) 1 puff IH DAILY [facility] Last Admin: 11/25/18 10:18 Dose: 1 puff Chlordiazepoxide HCl (Librium -) 25 mg PO [id number] [facility] Stop: 11/26/18 11:01 Chlordiazepoxide HCl (Librium -) 15 mg PO [id number] [facility] Stop: 11/27/18 11:01 Chlordiazepoxide HCl (Librium -) 25 mg PO Q4H PRN PRN Reason: WITHDRAWAL(CONT SUBST) Stop: 11/27/18 13:09 Chlordiazepoxide HCl (Librium -) 10 mg PO [id number] [facility] Stop: 11/28/18 11:01 Diltiazem HCl (Cardizem -) 30 mg PO Q6HPO [facility] Last Admin: 11/25/18 14:30 Dose: 30 mg Gabapentin (Neurontin -) 100 mg PO DAILY [facility] Last Admin: 11/25/18 10:17 Dose: 100 mg Ceftriaxone Sodium 2 gm/ (Dextrose) 100 mls @ 200 mls/hr IVPB DAILY [facility]; Protocol Last Admin: 11/25/18 10:18 Dose: 200 mls/hr Insulin Aspart (Novolog Vial Sliding Scale -) 1 vial SQ ACHS [facility]; Protocol Last Admin: 11/25/18 06:32 Dose: 4 units Insulin Detemir (Levemir Vial) 10 units SQ HS [facility] Last Admin: 11/24/18 22:12 Dose: 10 units Methylprednisolone Sodium Succinate (Solu-Medrol -) 40 mg IVPUSH Q6H-IV [facility] Multivitamins/Minerals/Vitamin C (Tab-A-Vit -) 1 tab PO DAILY [facility] Last Admin: 11/25/18 10:17 Dose: 1 tab Pantoprazole Sodium (Protonix -) 20 mg PO DAILY [facility] Last Admin: 11/25/18 10:17 Dose: 20 mg - Objective Vital Signs: Vital Signs Temperature 97 F L 11/25/18 15:29 Pulse Rate 146 H 11/25/18 15:29 Respiratory Rate 20 11/25/18 15:29 Blood Pressure 153/77 11/25/18 15:29 O2 Sat by Pulse Oximetry (%) 96 11/25/18 01:54 Constitutional: Yes: Anxious, Obese Eyes: Yes: WNL HENT: Yes: WNL Neck: Yes: Decreased ROM Cardiovascular: Yes: S1 (varies in intensity), S2 Respiratory: Yes: Diminished, On BiPap, SOB Gastrointestinal: Yes: Abdomen, Obese ...Rectal Exam: Yes: Deferred Genitourinary: No: Anuria Breast(s): Yes: WNL Musculoskeletal: Yes: Muscle Weakness Extremities: Yes: Cool Edema: Yes Edema: LLE: Trace, RLE: Trace Integumentary: Yes: Erythema Neurological: Yes: Alert, Oriented Psychiatric: Yes: Other (anxiety) Labs: CBC, BMP 11/25/18 05:30 11/25/18 05:30 INR, PTT INR 1.13 (0.83-1.09) H 11/23/18 16:40 Abnormal Lab Results 11/25/18 11/25/18 11/25/18 05:30 05:30 05:30 Hct 45.7 H MCV 106.7 H MCHC 30.9 L RDW 16.3 H Neutrophils % 85.8 H Lymphocytes % 7.1 L D ABG pH ABG pCO2 at Pt Temp ABG HCO3 Sodium 131 L Potassium 5.7 H Chloride 94 L Anion Gap 7 L BUN 66 H Creatinine 2.2 H Random Glucose 202 H Calcium 8.4 L AST 67 H ALT 76 H Alkaline Phosphatase 119 H Random Vancomycin 13.4 L 11/25/18 08:54 Hct MCV MCHC RDW Neutrophils % Lymphocytes % ABG pH 7.16 L* ABG pCO2 at Pt Temp 87.0 H* D ABG HCO3 29.9 H Sodium Potassium Chloride Anion Gap BUN Creatinine Random Glucose Calcium AST ALT Alkaline Phosphatase Random Vancomycin - ....Imaging Other: Image Reviewed (telemetry: AF; periods of RVR) Problem List - Problems (1) Atrial flutter Assessment/Plan: On IV diltiazem and PO diltiazem for HR control. On apixaban for anticoagulation. ECHO: unable to assess LVEF; repeat when HR better-controlled (if still difficult to read, will get MUGA). CT: no PE Code(s): I48.92 - UNSPECIFIED ATRIAL FLUTTER (2) Morbid obesity Code(s): E66.01 - MORBID (SEVERE) OBESITY DUE TO EXCESS CALORIES (3) COPD exacerbation Assessment/Plan: bronchodilators, O2, steroids per wreath inspector. Signs of volume overload; would stop IV fluids (pt is eating and drinking). Code(s): J44.1 - CHRONIC OBSTRUCTIVE PULMONARY DISEASE W (ACUTE) EXACERBATION (4) Hyperlipidemia Code(s): E78.5 - HYPERLIPIDEMIA, UNSPECIFIED (5) HTN (hypertension) Assessment/Plan: On diltiazem. F/u ECHO for LVEF, wall thickness, chambver sizes, valve status Code(s): I10 - ESSENTIAL (PRIMARY) HYPERTENSION (6) Diabetes Code(s): E11.9 - TYPE 2 DIABETES MELLITUS WITHOUT COMPLICATIONS (7) [place] cardiac risk >20% in next 10 years Assessment/Plan: TNI negative x 2. BP and glucose control. Keep LDL cholesterol < 70 mg/dL. Smoking cessation. Dietary consult; weight loss. Exercise will be important in the future. Coronary artery evaluation when stable (stress MIBI and/or coronary angiogram). Code(s): Z91.89 - OTH PERSONAL RISK FACTORS, NOT ELSEWHERE CLASSIFIED (8) Elevated LFTs Code(s): R94.5 - ABNORMAL RESULTS OF LIVER FUNCTION STUDIES (9) Cigarette nicotine dependence Assessment/Plan: The importance of stopping was discussed (pt's mother was in room; pt says she gets defensive, because her mother is always lecturing her). Code(s): F17.210 - NICOTINE DEPENDENCE, CIGARETTES, UNCOMPLICATED (10) Alcoholism Assessment/Plan: Detox protocol. Code(s): F10.20 - ALCOHOL DEPENDENCE, UNCOMPLICATED (11) Cellulitis Assessment/Plan: On antibiotics; f/u with ID. Code(s): L03.90 - CELLULITIS, UNSPECIFIED (12) Sleep apnea Assessment/Plan: workup, if not already diagnosed. Code(s): G47.30 - SLEEP APNEA, UNSPECIFIED (13) Ascites Code(s): R18.8 - OTHER ASCITES (14) Interstitial lung disease Assessment/Plan: F/u with wreath inspector. R/o sarcoid. R/o sleep apnea. Code(s): J84.9 - INTERSTITIAL PULMONARY DISEASE, UNSPECIFIED
--- NOTE | 2018-11-25 15:57 | CONSULT ---
Consult Consult Specialty:: Nephrology Reason for Consultation:: PITO - History of Present Illness Chief Complaint: shortness of breath History of Present Illness: Pt is a 53 year old female with pmhx of COPD, obesity and DM who presents to the ER with shortness of breath. She says she was started on steroids for a copd exacerbation but did not get better. She has had worsening shortness of breath. She is now on bipap. I was called to evaluate her for PITO. She did get a ct angio yesterday. She has been on fluids. She has also been on antibiotics. She feels that the bipap helped her breath. She complains of swelling in her legs and abdominal wall. She denies chest pain. - History Source History Provided By: Patient, Medical Record - Past Medical History Cardio/Vascular: Yes: HTN Pulmonary: Yes: COPD, Sleep Apnea (r/o (morbid obesity; COPD)) ...: No Endocrine: Yes: Diabetes Mellitus - Past Surgical History Past Surgical History: Yes: Cholecystectomy - Alcohol/Substance Use Hx Alcohol Use: Yes (4 glasses of Rum) History of Substance Use: reports: None - Smoking History Smoking history: Current every day smoker Aproximately how many cigarettes per day: 3 - Social History Usual Living Arrangement: Other (roommate) ADL: Independent History of Recent Travel: No Home Medications - Allergies Allergies/Adverse Reactions: Allergies Allergy/AdvReac Type Severity Reaction Status Date / Time No Known Allergies Allergy Verified 11/23/18 16:10 - Home Medications Home Medications: Ambulatory Orders Albuterol Sulfate Inhaler - [Ventolin Hfa Inhaler -] 1 - 2 inh PO QID 11/23/18 Aspirin [ASA -] 81 mg PO DAILY 11/23/18 Budesonide/Formeterol Fumarate [SYMBICORT 160/4.5mcg -] 1 inh PO DAILY 11/23/18 Furosemide [Lasix] 40 mg PO DAILY 11/23/18 Gabapentin 100 mg PO DAILY 11/23/18 Glipizide 10 mg PO BID 11/23/18 Lisinopril [Prinivil] 10 mg PO DAILY 11/23/18 Metformin HCl [Glucophage] 500 mg PO BID 11/23/18 Multivitamins [Tab-A-Vit -] 1 tab PO DAILY 11/23/18 Salmeterol/Fluticasone [Advair 500Mcg/50Mcg -] 1 inh IH BID 11/23/18 Family Disease History - Family Disease History Family History: Denies Review of Systems - Review of Systems Constitutional: reports: Malaise. denies: Chills, Fever Eyes: reports: No Symptoms HENT: reports: No Symptoms Neck: reports: No Symptoms Cardiovascular: reports: Edema, Shortness of Breath Respiratory: reports: Cough, SOB, SOB on Exertion Gastrointestinal: reports: Bloating Genitourinary: reports: No Symptoms Musculoskeletal: reports: Muscle Weakness Integumentary: reports: No Symptoms Neurological: reports: No Symptoms Endocrine: reports: No Symptoms Psychiatric: reports: No Symptoms Physical Exam Vital Signs: Vital Signs Temperature 97 F L 11/25/18 15:29 Pulse Rate 146 H 11/25/18 15:29 Respiratory Rate 20 11/25/18 15:29 Blood Pressure 153/77 11/25/18 15:29 O2 Sat by Pulse Oximetry (%) 96 11/25/18 01:54 Constitutional: Yes: Moderate Distress Eyes: Yes: Conjunctiva Clear HENT: Yes: Atraumatic Cardiovascular: Yes: S1, S2 Respiratory: Yes: On BiPap, Rhonchi Gastrointestinal: Yes: Soft, Abdomen, Obese, Other (edema) Renal/: Yes: WNL Musculoskeletal: Yes: Muscle Weakness Edema: Yes Edema: LUE: 1+, RUE: 1+, LLE: 2+, RLE: 2+ Integumentary: Yes: Venous Stasis Changes Neurological: Yes: Oriented Psychiatric: Yes: Oriented Labs: CBC, BMP 11/25/18 05:30 11/25/18 05:30 Laboratory Tests 11/23/18 11/24/18 11/24/18 16:40 09:54 12:49 WBC Hgb ABG pH ABG pCO2 at Pt Temp Sodium 133 L Potassium 5.3 H Chloride Carbon Dioxide Anion Gap BUN Creatinine 1.3 1.3 Urine Protein 1+ H 11/25/18 11/25/18 11/25/18 05:30 05:30 08:54 WBC 9.0 Hgb 14.1 ABG pH 7.16 L* ABG pCO2 at Pt Temp 87.0 H* D Sodium 131 L Potassium 5.7 H Chloride 94 L Carbon Dioxide 30 Anion Gap 7 L BUN 66 H Creatinine 2.2 H Urine Protein Imaging - Results Cat Scan: Report Reviewed Problem List - Problems (1) Hyperkalemia Code(s): E87.5 - HYPERKALEMIA (2) Acute on chronic respiratory failure with hypoxia and hypercapnia Code(s): J96.21 - ACUTE AND CHRONIC RESPIRATORY FAILURE WITH HYPOXIA; J96.22 - ACUTE AND CHRONIC RESPIRATORY FAILURE WITH HYPERCAPNIA (3) Acute renal failure Code(s): N17.9 - ACUTE KIDNEY FAILURE, UNSPECIFIED (4) Alcoholism Code(s): F10.20 - ALCOHOL DEPENDENCE, UNCOMPLICATED (5) Atrial flutter Code(s): I48.92 - UNSPECIFIED ATRIAL FLUTTER (6) Bilateral lower extremity edema Code(s): R60.0 - LOCALIZED EDEMA (7) COPD exacerbation Code(s): J44.1 - CHRONIC OBSTRUCTIVE PULMONARY DISEASE W (ACUTE) EXACERBATION Assessment/Plan Current Medications Generic Name Dose Route Start Last Admin Trade Name Freq PRN Reason Stop Dose Admin Apixaban 5 mg 11/24/18 10:00 11/25/18 10:17 Eliquis - PO 5 mg BID [facility] Administration Aspirin 81 mg 11/24/18 10:00 11/25/18 10:17 Asa - PO 81 mg DAILY [facility] Administration Budesonide/Formoterol Fumarate 1 puff 11/24/18 10:00 11/25/18 10:18 Symbicort 160/4.5mcg - IH 1 puff DAILY [facility] Administration Chlordiazepoxide HCl 25 mg 11/25/18 17:00 Librium - PO 11/26/18 11:01 [id number] [facility] Chlordiazepoxide HCl 15 mg 11/26/18 17:00 Librium - PO 11/27/18 11:01 [id number] [facility] Chlordiazepoxide HCl 25 mg 11/24/18 13:10 Librium - PO 11/27/18 13:09 Q4H PRN WITHDRAWAL(CONT SUBST) Chlordiazepoxide HCl 10 mg 11/27/18 17:00 Librium - PO 11/28/18 11:01 [id number] [facility] Diltiazem HCl 30 mg 11/24/18 06:00 11/25/18 14:30 Cardizem - PO 30 mg Q6HPO [facility] Administration Gabapentin 100 mg 11/24/18 10:00 11/25/18 10:17 Neurontin - PO 100 mg DAILY [facility] Administration Ceftriaxone Sodium 2 gm/ 100 mls @ 200 mls/hr 11/25/18 10:00 11/25/18 10:18 Dextrose IVPB 200 mls/hr DAILY [facility] Administration Protocol Insulin Aspart 1 vial 11/24/18 11:00 11/25/18 06:32 Novolog Vial Sliding Scale - SQ 4 units ACHS [facility] Administration Protocol Insulin Detemir 10 units 11/24/18 22:00 11/24/18 22:12 Levemir Vial SQ 10 units HS [facility] Administration Methylprednisolone Sodium Succinate 40 mg 11/25/18 15:00 Solu-Medrol - IVPUSH Q6H-IV [facility] Multivitamins/Minerals/Vitamin C 1 tab 11/24/18 10:00 11/25/18 10:17 Tab-A-Vit - PO 1 tab DAILY [facility] Administration Pantoprazole Sodium 20 mg 11/24/18 11:30 11/25/18 10:17 Protonix - PO 20 mg DAILY [facility] Administration Impression 1. PITO 2. hyperkalemia 3. a-flutter 4. resp failure requiring bipap 5. DM 6. HTN 7. active smoker 8. etoh abuse 9. obesity 10. interstitial lung disease on CT scan 11. resp acidosis Plan - pt was given kayexylate for potassium earlier - recommend stopping fluids as she appears fluid overload - will send out workup for pito, check bladder ultrasound, ua and lytes - place ravizu and monitor urine output - pt likely need diuretics, she was taking lasix 40 mg at home - called pulmonary, recommend transfer to the ICU, pt will be transferred - discussed with cardiology - repeat labs to monitor potassium - check renal ultrasound - different for pito is broad will make more recs after reviewing data - discussed with attending - pt did get iv contrast on early on the - will follow closely
[2018-11-25] MEDS ORDERED: CALCIUM GLUCONATE 10% - 1,000 MG/10 ML VIAL IVPB ONE (16:05)
[2018-11-25] MEDS ORDERED: SODIUM BICARBONATE 8.4% 50 MEQ/50 ML VIAL IVPUSH ONE (16:06)
--- NOTE | 2018-11-25 16:31 | CONSULT ---
Consultation: ICU team REQUESTING PROVIDER:Dr Velez CONSULT REQUEST: We have been asked to medically evaluate this patient for ( respiratory failure ). HISTORY OF PRESENT ILLNESS: 53 YOF with h/o COPD (placed on steroid course 2 days ago without relief) acute/ chronic alcoholism (several glasses of rum daily), long-term cigarette smoker, sleep apnea, morbid obesity, DM, HTN, hyperlipidemia, cellulitis, metabolic syndrome, who p/w SOB and wheezing similar to her prior COPD exacerbation. She additionally notes awakening in the middle of the night last night with visual hallucinations. She additionally notes abdominal swelling recently, believes she has an abdominal infection but does not know what kind. Denies h/o heart arrhythmia. She has noticed her lips are more blue than normal.she recieved CTA yesterday to R/O PE and was found to have ILD, and her kidney function worsening over night . REVIEW OF SYSTEMS: CONSTITUTIONAL: Absent: fever, chills, diaphoresis, generalized weakness, malaise, loss of appetite, weight change HEENT: Absent: rhinorrhea, nasal congestion, throat pain, throat swelling, difficulty swallowing, mouth swelling, ear pain, eye pain, visual changes CARDIOVASCULAR: Absent: chest pain, syncope, palpitations, irregular heart rate, lightheadedness , peripheral edema RESPIRATORY: Absent: cough, shortness of breath, dyspnea with exertion, orthopnea, wheezing, stridor, hemoptysis GASTROINTESTINAL: Absent: abdominal pain, abdominal distension, nausea, vomiting, diarrhea, constipation, melena, hematochezia GENITOURINARY: Absent: dysuria, frequency, urgency, hesitancy, hematuria, flank pain, genital pain MUSCULOSKELETAL: Absent: myalgia, arthralgia, joint swelling, back pain, neck pain SKIN: Absent: rash, itching, pallor HEMATOLOGIC/IMMUNOLOGIC: Absent: easy bleeding, easy bruising, lymphadenopathy, frequent infections ENDOCRINE: Absent: unexplained weight gain, unexplained weight loss, heat intolerance, cold intolerance NEUROLOGIC: Absent: headache, focal weakness or paresthesias, dizziness, unsteady gait, seizure, mental status changes, bladder or bowel incontinence PSYCHIATRIC: Absent: anxiety, depression, suicidal or homicidal ideation, hallucinations. PHYSICAL EXAMINATION Vital Signs - 24 hr 11/24/18 11/24/18 11/24/18 16:30 19:00 21:00 Temperature 98 F Pulse Rate 50 L 70 Respiratory 22 H 20 20 Rate Blood Pressure 90/40 L 102/54 L O2 Sat by Pulse 95 96 Oximetry (%) 11/24/18 11/24/18 11/25/18 22:00 22:03 01:54 Temperature 97.7 F Pulse Rate 69 Respiratory 20 Rate Blood Pressure 120/62 O2 Sat by Pulse 96 96 Oximetry (%) 11/25/18 11/25/18 11/25/18 02:00 05:41 10:00 Temperature 97.3 F L 97.6 F 98.6 F Pulse Rate 78 96 H 70 Respiratory 20 20 20 Rate Blood Pressure 84/54 L 94/37 L 100/74 O2 Sat by Pulse Oximetry (%) 11/25/18 15:29 Temperature 97 F L Pulse Rate 146 H Respiratory 20 Rate Blood Pressure 153/77 O2 Sat by Pulse Oximetry (%) GENERAL: AAOx3, obese lasy in moderate respiratory distress on BIPAP HEAD: NC/AT EYES: EVANGELISTA, EOMI ENT: Moist mucous membranes. NECK: supple LUNGS: bibasilar crackles . No wheezes,on BIPAP HEART: AFIB ,normal S1 and S2 without murmur, rub or gallop. ABDOMEN: Obese, Soft, nontender, distended, normoactive bowel sounds, no guarding, LOWER EXTREMITIES: 2+ pulses, warm, well-perfused. No calf tenderness. +2 peripheral edema.B/L LE erythema NEUROLOGICAL: no focal deficit PSYCHIATRIC: Cooperative. Good eye contact. Appropriate mood and affect. SKIN: Warm, dry, Laboratory Results - last 24 hr 11/24/18 11/25/18 11/25/18 22:11 05:06 05:30 WBC RBC Hgb Hct MCV MCH MCHC RDW Plt Count MPV Absolute Neuts (auto) Neutrophils % Lymphocytes % Monocytes % Eosinophils % Basophils % Nucleated RBC % Puncture Site ABG pH ABG pCO2 at Pt Temp ABG pO2 at Pt Temp ABG HCO3 ABG O2 Sat (Measured) ABG O2 Content ABG Base Excess Mendoza Test Oxygen Flow Rate Sodium Potassium Chloride Carbon Dioxide Anion Gap BUN Creatinine Creat Clearance w eGFR POC Glucometer 316 241 Random Glucose Calcium Total Bilirubin AST ALT Alkaline Phosphatase Total Protein Albumin Random Vancomycin 13.4 L 11/25/18 11/25/18 11/25/18 05:30 05:30 08:54 WBC 9.0 RBC 4.29 Hgb 14.1 Hct 45.7 H MCV 106.7 H MCH 33.0 MCHC 30.9 L RDW 16.3 H Plt Count 171 MPV 9.3 Absolute Neuts (auto) 7.7 Neutrophils % 85.8 H Lymphocytes % 7.1 L D Monocytes % 6.9 Eosinophils % 0.0 Basophils % 0.2 Nucleated RBC % 0 Puncture Site Right radial ABG pH 7.16 L* ABG pCO2 at Pt Temp 87.0 H* D ABG pO2 at Pt Temp 93.1 ABG HCO3 29.9 H ABG O2 Sat (Measured) 95.2 ABG O2 Content 19.5 ABG Base Excess -1.6 Mendoza Test Positive Oxygen Flow Rate Yes Sodium 131 L Potassium 5.7 H Chloride 94 L Carbon Dioxide 30 Anion Gap 7 L BUN 66 H Creatinine 2.2 H Creat Clearance w eGFR 23.26 POC Glucometer Random Glucose 202 H Calcium 8.4 L Total Bilirubin 0.5 AST 67 H ALT 76 H Alkaline Phosphatase 119 H Total Protein 7.1 Albumin 3.6 Random Vancomycin 11/25/18 14:18 WBC RBC Hgb Hct MCV MCH MCHC RDW Plt Count MPV Absolute Neuts (auto) Neutrophils % Lymphocytes % Monocytes % Eosinophils % Basophils % Nucleated RBC % Puncture Site ABG pH ABG pCO2 at Pt Temp ABG pO2 at Pt Temp ABG HCO3 ABG O2 Sat (Measured) ABG O2 Content ABG Base Excess Mendoza Test Oxygen Flow Rate Sodium Potassium Chloride Carbon Dioxide Anion Gap BUN Creatinine Creat Clearance w eGFR POC Glucometer 249 Random Glucose Calcium Total Bilirubin AST ALT Alkaline Phosphatase Total Protein Albumin Random Vancomycin Active Medications Generic Name Dose Route Start Last Admin Trade Name Girishq PRN Reason Stop Dose Admin Apixaban 5 mg 11/24/18 10:00 11/25/18 10:17 Eliquis - PO 5 mg BID BRIDGETTE Administration Aspirin 81 mg 11/24/18 10:00 11/25/18 10:17 Asa - PO 81 mg DAILY BRIDGETTE Administration Budesonide/Formoterol Fumarate 1 puff 11/24/18 10:00 11/25/18 10:18 Symbicort 160/4.5mcg - IH 1 puff DAILY BRIDGETTE Administration Chlordiazepoxide HCl 25 mg 11/25/18 17:00 Librium - PO 11/26/18 11:01 [id number] BRIDGETTE Chlordiazepoxide HCl 15 mg 11/26/18 17:00 Librium - PO 11/27/18 11:01 [id number] BRIDGETTE Chlordiazepoxide HCl 25 mg 11/24/18 13:10 Librium - PO 11/27/18 13:09 Q4H PRN WITHDRAWAL(CONT SUBST) Chlordiazepoxide HCl 10 mg 11/27/18 17:00 Librium - PO 11/28/18 11:01 [id number] BRIDGETTE Diltiazem HCl 30 mg 11/24/18 06:00 11/25/18 14:30 Cardizem - PO 30 mg Q6HPO BRIDGETTE Administration Gabapentin 100 mg 11/24/18 10:00 11/25/18 10:17 Neurontin - PO 100 mg DAILY BRIDGETTE Administration Ceftriaxone Sodium 2 gm/ 100 mls @ 200 mls/hr 11/25/18 10:00 11/25/18 10:18 Dextrose IVPB 200 mls/hr DAILY BRIDGETTE Administration Protocol Insulin Aspart 1 vial 11/24/18 11:00 11/25/18 16:02 Novolog Vial Sliding Scale - SQ 4 units ACHS BRIDGETTE Administration Protocol Insulin Detemir 10 units 11/24/18 22:00 11/24/18 22:12 Levemir Vial SQ 10 units HS BRIDGETTE Administration Methylprednisolone Sodium Succinate 40 mg 11/25/18 15:00 11/25/18 15:57 Solu-Medrol - IVPUSH 40 mg Q6H-IV BRIDGETTE Administration Multivitamins/Minerals/Vitamin C 1 tab 11/24/18 10:00 11/25/18 10:17 Tab-A-Vit - PO 1 tab DAILY BRIDGETTE Administration Pantoprazole Sodium 20 mg 11/24/18 11:30 11/25/18 10:17 Protonix - PO 20 mg DAILY BRIDGETTE Administration CBC, BMP 11/25/18 05:30 ABG Results ABG pH 7.16 (7.35-7.45) L* 11/25/18 16:49 ABG pCO2 at Pt Temp 88.1 mmHg (35-45) H* 11/25/18 16:49 ABG pO2 at Pt Temp 76.5 mmHg (80-100) L 11/25/18 16:49 ABG HCO3 30.1 meq/L (22-26) H 11/25/18 16:49 ABG O2 Sat (Measured) 92.2 % (90-98.9) 11/25/18 16:49 ABG O2 Content No Result Required. 11/25/18 11:00 ABG Base Excess -1.6 meq/l (-2-2) 11/25/18 16:49 ASSESSMENT/PLAN: 53 YOF with h/o COPD (placed on steroid course 2 days ago without relief) acute/ chronic alcoholism (several glasses of rum daily), long-term cigarette smoker, sleep apnea, morbid obesity, DM, HTN, hyperlipidemia, cellulites, metabolic syndrome, who transferred to ICU from [facility] due to respiratory failure. # Pulm - Acute hypercapnic respiratory failure due to pulmonary edema can Not R/O CHF vs copd exacerbation -ILD new diagnosed on CT * ABG with respiratory acidosis PH * CXR with mild congestion * first ECHO unclear , will repeat tomorrow * CXR in AM * CBC, BMP, BNP, * EKG Aflutter @130 with variable AV block, QTC 475, non specific t wave changes * trop * urine out pait * monitor I&O, daily weight * if no improvement on BIPAP will give lasix * cont steroids solumedrol 40 mg iv push Q 6 hr , con symbicort * cont broncodilators * repeat ABG at 7 pm # CV -AFlutter -HTN -HLD * Cardizim 25 IV push PRN , will restart the cardezim drip if no resonce * hold lisinopril due to worsening kidney function , resume * cardiology Dr Jefferson * cont ASA , Apixaban # Nephro -PITO likely due to contrast vs pre renal -Hyperkalemia * worsen BUN/Cr * hold fluids due to respiratory failure volume over loaded * avoid nephrotoxic agents * nephrology consulted * Urine eosinophiles * monitor urine out put * hyperkalemia treated medically repeat BMP * UA, urine lytes , urine creatinin, urine eosiophiles * kidney work up per neprology(CANCA, PANCA , ANTi GBM,anti dsDNA ,hep panel, hep c ) * insert arvizu * renal US , bladder US #ID -Cellulitis * cont abx Ceftriaxone 2 gm daily * ID on board Dr hauser # Neuro * AAOx3 * labored breathing -ETOH abuse , dependence * on libirium protocol -Tobacco abuse * educated * nicotine patch # Endo -DM * BGM ACHS * ISS * levemir 10 units HS * diabetic diet -Morbid obesity * educated about low calories diet , losing weight , daily exercise # FEN * No standing fluids for now * E: monitor * N: low sodium diabetic diet # proph * scds , Apixaban , ASA * GI: protonix 40 po daily # dispo * monitor in ICU Dispo: We will continue to follow the patient. Thank you for this consultative opportunity. Charanjit Long MD PGY 2 Visit type - Emergency Visit Emergency Visit: Yes ED Registration Date: 11/23/18 Care time: The patient presented to the Emergency Department on the above date and was hospitalized for further evaluation of their emergent condition. - New Patient This patient is new to me today: Yes Date on this admission: 11/25/18 - Critical Care Critical Care patient: Yes Total Critical Care Time (in minutes): 45 Critical Care Statement: The care of this patient involved high complexity decision making to prevent further life threatening deterioration of the patient 's condition and/or to evaluate & treat vital organ system(s) failure or risk of failure.
[2018-11-25 17:06] LABS: ARTERIAL BLD GAS O2 SATURATION 92.2 % (90-98.9); ARTERIAL BLOOD GAS BASE EXCESS -1.6 meq/l (-2-2); ARTERIAL BLOOD GAS PO2 76.5 mmHg (80-100)
[2018-11-25 17:07] LABS: ALLENS TEST POSITIVE
[2018-11-25 17:13] LABS: ARTERIAL BLOOD GAS PCO2 88.1 mmHg (35-45); ARTERIAL BLOOD GAS pH 7.16 (7.35-7.45)
[2018-11-25] MEDS ORDERED: dilTIAZem HCL 50 MG/10 ML - 10 ML VIAL IVPUSH ONE ×2 (17:30→18:00)
[2018-11-25] MEDS ORDERED: dilTIAZem HCL 50 MG/10 ML - 10 ML VIAL IVPUSH PRN (18:47)
[2018-11-25 19:20] LABS: ARTERIAL BLD GAS O2 SATURATION 95.8 % (90-98.9)
[2018-11-25 19:22] LABS: ALLENS TEST POSITIVE
[2018-11-25 19:25] LABS: ARTERIAL BLOOD GAS pH 7.17 (7.35-7.45)
[2018-11-25 19:26] LABS: ARTERIAL BLOOD GAS PCO2 91.2 mmHg (35-45)
[2018-11-25 19:27] LABS: N-TERMINAL BNP 2197.7 pg/ml (5-125)
[2018-11-25 19:28] LABS: ANION GAP 4 MMOL/L (8-16); BLOOD UREA NITROGEN 78 mg/dL (7-18); CALCIUM 8.4 mg/dL (8.5-10.1); CHLORIDE 93 mmol/L (98-107); CO2 34 mmol/L (21-32); CREATININE 2.3 mg/dL (0.55-1.3); GLUCOSE,RANDOM 267 mg/dL (74-106); POTASSIUM 5.5 mmol/L (3.5-5.1); SODIUM 131 mmol/L (136-145)
[2018-11-25] MEDS: ALBUTEROL SO4 2.5/IPRATROPIUM 0.5 INH SOL 3 ML VIAL.NEB. NEB SCH (20:36)
[2018-11-25] MEDS: INSULIN (LEVEMIR) 100 UNITS/ML UNITS SQ SCH (22:11)
[2018-11-25 23:21] LABS: ARTERIAL BLOOD GAS BASE EXCESS -0.2 meq/l (-2-2); ARTERIAL BLOOD GAS PO2 68.8 mmHg (80-100)
[2018-11-25 23:24] LABS: ALLENS TEST POSITIVE
[2018-11-25 23:26] LABS: ARTERIAL BLOOD GAS PCO2 78.4 mmHg (35-45); ARTERIAL BLOOD GAS pH 7.21 (7.35-7.45)
[2018-11-26] MEDS: dilTIAZem HCL 30 MG TABLET (FP) PO SCH ×5 (00:18→23:02)
[2018-11-26] MEDS: methylPREDNISolone NA SUCC 40 MG/1 ML VIAL IVPUSH SCH ×4 (02:15→21:49)
[2018-11-26] MEDS: chlordiazePOXIDE HCL 25 MG CAPSULE PO SCH ×2 (05:48→11:03)
[2018-11-26 06:17] LABS: BASO % 0.1 % (0-2.0); HEMATOCRIT 45.9 % (32.4-45.2); HEMOGLOBIN 14.2 GM/dL (10.7-15.3); LYMPH % 6.2 % (8-40); MCH 32.7 pg (25.7-33.7); MCHC 30.9 g/dl (32.0-36.0); MEAN CELL VOLUME 105.8 fl (80-96); MEAN PLT VOLUME 9.2 fl (7.5-11.1); MONO % 7.2 % (3.8-10.2); NEUT % 86.5 % (42.8-82.8); PLATELET COUNT 152 K/MM3 (134-434); RBC 4.34 M/mm3 (3.60-5.2); RDW 15.5 % (11.6-15.6); WHITE BLOOD COUNT 9.5 K/mm3 (4.0-10.0)
[2018-11-26] MEDS: INSULIN SLIDING SCALE (NOVOLOG) 1 VIAL SQ SCH ×4 (06:29→22:44)
[2018-11-26 06:59] LABS: ALBUMIN 3.2 g/dl (3.4-5.0); ALK PHOS 108 U/L (45-117); ANION GAP 8 MMOL/L (8-16); BILIRUBIN,TOTAL 0.6 mg/dL (0.2-1); BLOOD UREA NITROGEN 89 mg/dL (7-18); CALCIUM 8.5 mg/dL (8.5-10.1); CHLORIDE 94 mmol/L (98-107); CO2 30 mmol/L (21-32); CREATININE 2.6 mg/dL (0.55-1.3); GLUCOSE,RANDOM 157 mg/dL (74-106); MAGNESIUM 2.9 mg/dL (1.8-2.4); PHOSPHOROUS 7.6 mg/dL (2.5-4.9); POTASSIUM 5.4 mmol/L (3.5-5.1); SGOT/AST 31 U/L (15-37); SGPT/ALT 55 U/L (13-61); SODIUM 132 mmol/L (136-145); TOT PROT 6.4 g/dl (6.4-8.2)
--- NOTE | 2018-11-26 07:30 | PN ---
Physical Exam: SUBJECTIVE: Patient seen and examined. Reports that she is hungry. Endorses less shortness of breath this AM relative to yesterday evening. Denies pain OBJECTIVE: Vital Signs Period Temp Pulse Resp BP Sys/Gregorio Pulse Ox Last 24 Hr 97 F-99.7 F 70-146 17-23 70-153/58-84 91-100 GENERAL: AAOx3, obese, in moderate respiratory distress on BIPAP HEAD: NC/AT EYES: EVANGELISTA, EOMI ENT: Moist mucous membranes. NECK: supple LUNGS: b/l coarse breath sounds throughout w/ moderately poor respiratory effort HEART: AFIB ,normal S1 and S2 without murmur, rub or gallop. ABDOMEN: Soft, protuberant, edematous, nontender, distended, normoactive bowel sounds, no guarding BUE: B/l hand swelling, not likely cellulitis, sensation and ROM intact LOWER EXTREMITIES: BLE erythema to knee; no fluctuance; 2+ pulses, warm, well- perfused. No calf tenderness. +2 peripheral edema NEUROLOGICAL: no focal deficit PSYCHIATRIC: Cooperative. Good eye contact. Appropriate mood and affect. Active Medications Generic Name Dose Route Start Last Admin Trade Name Freq PRN Reason Stop Dose Admin Albuterol/Ipratropium 1 amp 11/25/18 20:10 11/25/18 20:36 Duoneb - NEB 1 amp RQID BRIDGETTE Administration Apixaban 5 mg 11/24/18 10:00 11/25/18 22:03 Eliquis - PO 5 mg BID BRIDGETTE Administration Aspirin 81 mg 11/24/18 10:00 11/25/18 10:17 Asa - PO 81 mg DAILY BRIDGETTE Administration Budesonide/Formoterol Fumarate 1 puff 11/24/18 10:00 11/25/18 10:18 Symbicort 160/4.5mcg - IH 1 puff DAILY BRIDGETTE Administration Chlordiazepoxide HCl 25 mg 11/25/18 17:00 11/26/18 05:48 Librium - PO 11/26/18 11:01 Not Given [id number] BRIDGETTE Chlordiazepoxide HCl 15 mg 11/26/18 17:00 Librium - PO 11/27/18 11:01 [id number] BRIDGETTE Chlordiazepoxide HCl 25 mg 11/24/18 13:10 Librium - PO 11/27/18 13:09 Q4H PRN WITHDRAWAL(CONT SUBST) Chlordiazepoxide HCl 10 mg 11/27/18 17:00 Librium - PO 11/28/18 11:01 [id number] BRIDGETTE Diltiazem HCl 30 mg 11/24/18 06:00 11/26/18 05:39 Cardizem - PO 30 mg Q6HPO BRIDGETTE Administration Diltiazem HCl 25 mg 11/25/18 18:47 Cardizem Injection - IVPUSH ONCE PRN HYPERTENSION Gabapentin 100 mg 11/24/18 10:00 11/25/18 10:17 Neurontin - PO 100 mg DAILY BRIDGETTE Administration Ceftriaxone Sodium 2 gm/ 100 mls @ 200 mls/hr 11/25/18 10:00 11/25/18 10:18 Dextrose IVPB 200 mls/hr DAILY BRIDGETTE Administration Protocol Insulin Aspart 1 vial 11/24/18 11:00 11/26/18 06:29 Novolog Vial Sliding Scale - SQ 2 units ACHS BRIDGETTE Administration Protocol Insulin Detemir 10 units 11/24/18 22:00 11/25/18 22:11 Levemir Vial SQ 10 units HS BRIDGETTE Administration Methylprednisolone Sodium Succinate 40 mg 11/25/18 15:00 11/26/18 02:15 Solu-Medrol - IVPUSH 40 mg Q6H-IV BRIDGETTE Administration Multivitamins/Minerals/Vitamin C 1 tab 11/24/18 10:00 11/25/18 10:17 Tab-A-Vit - PO 1 tab DAILY BRIDGETTE Administration Pantoprazole Sodium 20 mg 11/24/18 11:30 11/25/18 10:17 Protonix - PO 20 mg DAILY BRIDGETTE Administration ASSESSMENT/PLAN: 53F with h/o COPD (placed on steroid course 2 days ago without relief) acute/ chronic alcoholism (several glasses of rum daily), long-term cigarette smoker, sleep apnea, morbid obesity, DM, HTN, hyperlipidemia, cellulites, metabolic syndrome, who transferred to ICU from [facility] due to respiratory failure. #Pulm Acute hypercapnic respiratory failure due to pulmonary edema can Not R/O CHF vs copd exacerbation ILD new diagnosed on CT -Repeat ECHO pending --Will add Milrinone if repeat concerning for RHF -Cont. BIPAP -Cont steroids solumedrol 40 mg iv push Q 6 hr , con symbicort -Cont broncodilators #CV -AFlutter -HTN -HLD -Cardizim 25 IV push PRN , will restart the cardezim drip if no resonce -Hold lisinopril due to worsening kidney function , resume -Cardiology Dr Jefferson -Cont ASA , Apixaban # PITO likely due to contrast vs pre renal -IVF held 2/2 respiratory edema/volume overload -Avoid nephrotoxic agents -Nephrology consulted Hyperkalemia -S/p kayexalate -Improving, 5.4 #ID Cellulitis -Cont abx Ceftriaxone 2 gm daily -ID consulted #Neuro AAOx3 ETOH abuse , dependence -Librium held 2/2 lethargic mental status -Ativan 2mg PRN for withdrawal symptoms Tobacco abuse -Educated -Nicotine patch #Endo DM -BGM ACHS -ISS -Levemir 10 units HS Morbid obesity -Educated about low calories diet , losing weight , daily exercise #GI Nutrition -NPO GI Ppx -Protonix 40 PO daily #Heme DVT Ppx: scds , Apixaban , ASA Dispo: Patient continues to require ICU level of care Visit type - Emergency Visit Emergency Visit: Yes ED Registration Date: 11/23/18 Care time: The patient presented to the Emergency Department on the above date and was hospitalized for further evaluation of their emergent condition. - New Patient This patient is new to me today: Yes Date on this admission: 11/26/18 - Critical Care Critical Care patient: Yes Total Critical Care Time (in minutes): 40 Critical Care Statement: The care of this patient involved high complexity decision making to prevent further life threatening deterioration of the patient 's condition and/or to evaluate & treat vital organ system(s) failure or risk of failure.
[2018-11-26] MEDS: ALBUTEROL SO4 2.5/IPRATROPIUM 0.5 INH SOL 3 ML VIAL.NEB. NEB SCH ×4 (07:50→21:13)
[2018-11-26 08:52] LABS: ARTERIAL BLD GAS O2 SATURATION 92.3 % (90-98.9); ARTERIAL BLOOD GAS BASE EXCESS 1.2 meq/l (-2-2); ARTERIAL BLOOD GAS PO2 73.9 mmHg (80-100); ARTERIAL BLOOD GAS pH 7.25 (7.35-7.45)
[2018-11-26 08:57] LABS: ALLENS TEST POSITIVE
[2018-11-26 08:59] LABS: ARTERIAL BLOOD GAS PCO2 72.5 mmHg (35-45)
[2018-11-26] MEDS ORDERED: DEXTROSE 5%-WATER 100 ML IVPB ONE (10:18)
[2018-11-26] MEDS: CEFTRIAXONE 2 GM in DEXTROSE 5%-WATER 100 ML IVPB SCH (10:21)
[2018-11-26] MEDS: PANTOPRAZOLE 20 MG TABLET (FP) PO SCH (11:02)
[2018-11-26] MEDS: GABAPENTIN 100 MG CAPSULE (FP) PO SCH (11:02)
[2018-11-26] MEDS: ASPIRIN 81 MG CHEWABLE TABLETS PO SCH (11:02)
[2018-11-26] MEDS: MULTIVITAMINS (DAILY MVI) TABLET (FP) PO SCH (11:02)
[2018-11-26] MEDS: APIXABAN 5 MG TABLET PO SCH ×2 (11:02→21:49)
[2018-11-26] MEDS ORDERED: LORazepam 2 MG/ML SDV VIAL IVPUSH PRN (11:22)
--- NOTE | 2018-11-26 11:22 | PN ---
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 (short form) - Note 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: Events noted Pt on BIPAP confused Vital Signs - 24 hr 11/25/18 11/25/18 11/25/18 15:22 15:29 17:10 Temperature 97 F L 99.7 F H Pulse Rate 146 H 132 H Respiratory 20 18 Rate Blood Pressure 153/77 117/84 O2 Sat by Pulse 96 Oximetry (%) 11/25/18 11/25/18 11/25/18 17:30 18:00 18:15 Temperature Pulse Rate 99 H 107 H Respiratory 17 18 Rate Blood Pressure 97/65 110/78 O2 Sat by Pulse 100 Oximetry (%) 11/25/18 11/25/18 11/25/18 18:42 18:43 18:50 Temperature Pulse Rate 132 H Respiratory Rate Blood Pressure O2 Sat by Pulse 96 97 99 Oximetry (%) 11/25/18 11/25/18 11/25/18 20:37 20:52 23:00 Temperature Pulse Rate 88 77 Respiratory 23 H Rate Blood Pressure 94/58 L O2 Sat by Pulse 94 L 91 L Oximetry (%) 11/25/18 11/26/18 11/26/18 23:34 00:00 02:00 Temperature 97.8 F Pulse Rate 95 H 70 Respiratory 20 19 Rate Blood Pressure 94/58 L 70/59 L O2 Sat by Pulse 94 L Oximetry (%) 11/26/18 11/26/18 11/26/18 02:25 04:00 05:10 Temperature Pulse Rate 70 Respiratory 19 Rate Blood Pressure 85/58 L O2 Sat by Pulse 92 L 92 L Oximetry (%) 11/26/18 11/26/18 06:45 07:50 Temperature Pulse Rate Respiratory Rate Blood Pressure O2 Sat by Pulse 93 L 91 L Oximetry (%) Current Medications Generic Name Dose Route Start Last Admin Trade Name Freq PRN Reason Stop Dose Admin Albuterol/Ipratropium 1 amp 11/25/18 20:10 11/26/18 07:50 Duoneb - NEB 1 amp RQID [facility] Administration Apixaban 5 mg 11/24/18 10:00 11/25/18 22:03 Eliquis - PO 5 mg BID [facility] Administration Aspirin 81 mg 11/24/18 10:00 11/25/18 10:17 Asa - PO 81 mg DAILY [facility] Administration Budesonide/Formoterol Fumarate 1 puff 11/24/18 10:00 11/25/18 10:18 Symbicort 160/4.5mcg - IH 1 puff DAILY [facility] Administration Chlordiazepoxide HCl 15 mg 11/26/18 17:00 Librium - PO 11/27/18 11:01 [id number] [facility] Chlordiazepoxide HCl 25 mg 11/24/18 13:10 Librium - PO 11/27/18 13:09 Q4H PRN WITHDRAWAL(CONT SUBST) Chlordiazepoxide HCl 10 mg 11/27/18 17:00 Librium - PO 11/28/18 11:01 [id number] [facility] Diltiazem HCl 30 mg 11/24/18 06:00 11/26/18 05:39 Cardizem - PO 30 mg Q6HPO [facility] Administration Diltiazem HCl 25 mg 11/25/18 18:47 Cardizem Injection - IVPUSH ONCE PRN HYPERTENSION Gabapentin 100 mg 11/24/18 10:00 11/25/18 10:17 Neurontin - PO 100 mg DAILY [facility] Administration Ceftriaxone Sodium 2 gm/ 100 mls @ 200 mls/hr 11/25/18 10:00 11/26/18 10:21 Dextrose IVPB 200 mls/hr DAILY [facility] Administration Protocol Insulin Aspart 1 vial 11/24/18 11:00 11/26/18 06:29 Novolog Vial Sliding Scale - SQ 2 units ACHS [facility] Administration Protocol Insulin Detemir 10 units 11/24/18 22:00 11/25/18 22:11 Levemir Vial SQ 10 units HS [facility] Administration Methylprednisolone Sodium Succinate 40 mg 11/25/18 15:00 11/26/18 10:21 Solu-Medrol - IVPUSH 40 mg Q6H-IV [facility] Administration Multivitamins/Minerals/Vitamin C 1 tab 11/24/18 10:00 11/25/18 10:17 Tab-A-Vit - PO 1 tab DAILY [facility] Administration Pantoprazole Sodium 20 mg 11/24/18 11:30 11/25/18 10:17 Protonix - PO 20 mg DAILY [facility] Administration Laboratory Results - last 24 hr 11/25/18 11/25/18 11/25/18 11:00 14:18 16:30 WBC RBC Hgb Hct MCV MCH MCHC RDW Plt Count MPV Absolute Neuts (auto) Neutrophils % Lymphocytes % Monocytes % Eosinophils % Basophils % Nucleated RBC % Anticoagulation Therapy No Result Required. Puncture Site ABG pH ABG pCO2 at Pt Temp ABG pO2 at Pt Temp ABG HCO3 ABG O2 Sat (Measured) ABG O2 Content No Result Required. ABG Base Excess Mendoza Test O2 Delivery Device Oxygen Flow Rate Vent Mode No Result Required. Vent Rate No Result Required. Mechanical Rate No Result Required. Pressure Support Vent No Result Required. Sodium Cancelled Potassium Cancelled Chloride Cancelled Carbon Dioxide Cancelled Anion Gap Cancelled BUN Cancelled Creatinine Cancelled Creat Clearance w eGFR Cancelled POC Glucometer 249 Random Glucose Cancelled Calcium Cancelled Phosphorus Magnesium Total Bilirubin AST ALT Alkaline Phosphatase Troponin I Cancelled B-Natriuretic Peptide Cancelled Total Protein Albumin 11/25/18 11/25/18 11/25/18 16:49 18:30 18:34 WBC RBC Hgb Hct MCV MCH MCHC RDW Plt Count MPV Absolute Neuts (auto) Neutrophils % Lymphocytes % Monocytes % Eosinophils % Basophils % Nucleated RBC % Anticoagulation Therapy Puncture Site Right radial ABG pH 7.16 L* ABG pCO2 at Pt Temp 88.1 H* ABG pO2 at Pt Temp 76.5 L ABG HCO3 30.1 H ABG O2 Sat (Measured) 92.2 ABG O2 Content ABG Base Excess -1.6 Mendoza Test Positive O2 Delivery Device Bipop Oxygen Flow Rate 35 Vent Mode Vent Rate Mechanical Rate Pressure Support Vent Sodium 131 L Potassium 5.5 H Chloride 93 L Carbon Dioxide 34 H Anion Gap 4 L BUN 78 H Creatinine 2.3 H Creat Clearance w eGFR 22.10 POC Glucometer [phone] Random Glucose 267 H Calcium 8.4 L Phosphorus Magnesium Total Bilirubin AST ALT Alkaline Phosphatase Troponin I < 0.02 B-Natriuretic Peptide 2197.7 H Total Protein Albumin 11/25/18 11/25/18 11/25/18 19:00 22:08 23:05 WBC RBC Hgb Hct MCV MCH MCHC RDW Plt Count MPV Absolute Neuts (auto) Neutrophils % Lymphocytes % Monocytes % Eosinophils % Basophils % Nucleated RBC % Anticoagulation Therapy No Result Required. No Result Required. Puncture Site Right radial Right radial ABG pH 7.17 L* 7.21 L* ABG pCO2 at Pt Temp 91.2 H* 78.4 H* ABG pO2 at Pt Temp 95.0 D 68.8 L D ABG HCO3 31.8 H 30.1 H ABG O2 Sat (Measured) 95.8 91.0 ABG O2 Content 19.5 18.6 ABG Base Excess 0.0 -0.2 Mendoza Test Positive Positive O2 Delivery Device No Result Required. Bipap Oxygen Flow Rate 40% 40 Vent Mode S/t S/t Vent Rate 18 18 Mechanical Rate No Result Required. No Result Required. Pressure Support Vent No Result Required. Sodium Potassium Chloride Carbon Dioxide Anion Gap BUN Creatinine Creat Clearance w eGFR POC Glucometer [phone] Random Glucose Calcium Phosphorus Magnesium Total Bilirubin AST ALT Alkaline Phosphatase Troponin I B-Natriuretic Peptide Total Protein Albumin 11/26/18 11/26/18 11/26/18 05:30 05:30 05:31 WBC 9.5 RBC 4.34 Hgb 14.2 Hct 45.9 H MCV 105.8 H MCH 32.7 MCHC 30.9 L RDW 15.5 Plt Count 152 MPV 9.2 Absolute Neuts (auto) 8.2 H Neutrophils % 86.5 H Lymphocytes % 6.2 L Monocytes % 7.2 Eosinophils % 0.0 Basophils % 0.1 Nucleated RBC % 0 Anticoagulation Therapy Puncture Site ABG pH ABG pCO2 at Pt Temp ABG pO2 at Pt Temp ABG HCO3 ABG O2 Sat (Measured) ABG O2 Content ABG Base Excess Mendoza Test O2 Delivery Device Oxygen Flow Rate Vent Mode Vent Rate Mechanical Rate Pressure Support Vent Sodium 132 L Potassium 5.4 H Chloride 94 L Carbon Dioxide 30 Anion Gap 8 BUN 89 H Creatinine 2.6 H Creat Clearance w eGFR 19.18 POC Glucometer [phone] Random Glucose 157 H Calcium 8.5 Phosphorus 7.6 H Magnesium 2.9 H Total Bilirubin 0.6 AST 31 ALT 55 Alkaline Phosphatase 108 Troponin I B-Natriuretic Peptide Total Protein 6.4 Albumin 3.2 L 11/26/18 08:42 WBC RBC Hgb Hct MCV MCH MCHC RDW Plt Count MPV Absolute Neuts (auto) Neutrophils % Lymphocytes % Monocytes % Eosinophils % Basophils % Nucleated RBC % Anticoagulation Therapy No Result Required. Puncture Site Right radial ABG pH 7.25 L ABG pCO2 at Pt Temp 72.5 H* ABG pO2 at Pt Temp 73.9 L ABG HCO3 30.5 H ABG O2 Sat (Measured) 92.3 ABG O2 Content 19.0 ABG Base Excess 1.2 Mendoza Test Positive O2 Delivery Device Y Oxygen Flow Rate 40 Vent Mode No Result Required. Vent Rate No Result Required. Mechanical Rate No Result Required. Pressure Support Vent No Result Required. Sodium Potassium Chloride Carbon Dioxide Anion Gap BUN Creatinine Creat Clearance w eGFR POC Glucometer Random Glucose Calcium Phosphorus Magnesium Total Bilirubin AST ALT Alkaline Phosphatase Troponin I B-Natriuretic Peptide Total Protein Albumin S1 S2 RRR Lungs decreased breath sounds Abd- soft, NT,obese, ND edema + PLAN In ICU - monitor O2 sat will be on high flow O2 may eat po as tolerated Ativan prn -- hold if lethargic, low BP on ceftriaxone continue with meds add Thiamine Problem List - Problems (1) Acute on chronic respiratory failure with hypoxia and hypercapnia Code(s): J96.21 - ACUTE AND CHRONIC RESPIRATORY FAILURE WITH HYPOXIA; J96.22 - ACUTE AND CHRONIC RESPIRATORY FAILURE WITH HYPERCAPNIA (2) Acute renal failure Code(s): N17.9 - ACUTE KIDNEY FAILURE, UNSPECIFIED (3) Acute respiratory failure with hypoxia and hypercapnia Code(s): J96.01 - ACUTE RESPIRATORY FAILURE WITH HYPOXIA; J96.02 - ACUTE RESPIRATORY FAILURE WITH HYPERCAPNIA (4) Alcoholism Code(s): F10.20 - ALCOHOL DEPENDENCE, UNCOMPLICATED (5) Atrial flutter Code(s): I48.92 - UNSPECIFIED ATRIAL FLUTTER (6) Bilateral lower extremity edema Code(s): R60.0 - LOCALIZED EDEMA (7) COPD exacerbation Code(s): J44.1 - CHRONIC OBSTRUCTIVE PULMONARY DISEASE W (ACUTE) EXACERBATION
--- NOTE | 2018-11-26 12:00 | PN ---
Teaching Attending Note Name of Resident: Heriberto Urena ATTENDING PHYSICIAN STATEMENT I saw and evaluated the patient. I reviewed the resident's note and discussed the case with the resident. I agree with the resident's findings and plan as documented. SUBJECTIVE: Pt seen and examined in the ICU. Remains on BiPAP, somnolent but arousable. ABG still with respiratory acidosis. OBJECTIVE: Vital Signs Period Temp Pulse Resp BP Sys/Gregorio Pulse Ox Last 24 Hr 97 F-99.7 F 70-146 17-23 70-153/58-84 91-100 Intake & Output 11/23/18 11/24/18 11/25/18 11/26/18 23:59 23:59 23:59 23:59 Intake Total 100 290 200 Output Total 200 Balance 100 290 0 Weight 124.738 kg 133.7 kg Gen: somnolent but arousable on BiPAP Heart: RRR Lung: distant breath sounds Abd: soft, nontender Ext: + edema CBC, BMP 11/26/18 05:30 11/26/18 05:30 Active Medications Albuterol/Ipratropium (Duoneb -) 1 amp NEB RQID [facility] Last Admin: 11/26/18 07:50 Dose: 1 amp Apixaban (Eliquis -) 5 mg PO BID [facility] Last Admin: 11/26/18 11:02 Dose: 5 mg Aspirin (Asa -) 81 mg PO DAILY [facility] Last Admin: 11/26/18 11:02 Dose: 81 mg Budesonide/Formoterol Fumarate (Symbicort 160/4.5mcg -) 1 puff IH DAILY [facility] Last Admin: 11/25/18 10:18 Dose: 1 puff Chlordiazepoxide HCl (Librium -) 15 mg PO [id number] [facility] Stop: 11/27/18 11:01 Chlordiazepoxide HCl (Librium -) 25 mg PO Q4H PRN PRN Reason: WITHDRAWAL(CONT SUBST) Stop: 11/27/18 13:09 Chlordiazepoxide HCl (Librium -) 10 mg PO [id number] [facility] Stop: 11/28/18 11:01 Diltiazem HCl (Cardizem -) 30 mg PO Q6HPO [facility] Last Admin: 11/26/18 05:39 Dose: 30 mg Diltiazem HCl (Cardizem Injection -) 25 mg IVPUSH ONCE PRN PRN Reason: HYPERTENSION Gabapentin (Neurontin -) 100 mg PO DAILY [facility] Last Admin: 11/26/18 11:02 Dose: 100 mg Ceftriaxone Sodium 2 gm/ (Dextrose) 100 mls @ 200 mls/hr IVPB DAILY [facility]; Protocol Last Admin: 11/26/18 10:21 Dose: 200 mls/hr Insulin Aspart (Novolog Vial Sliding Scale -) 1 vial SQ ACHS [facility]; Protocol Last Admin: 11/26/18 06:29 Dose: 2 units Insulin Detemir (Levemir Vial) 10 units SQ HS [facility] Last Admin: 11/25/18 22:11 Dose: 10 units Lorazepam (Ativan Injection -) 1 mg IVPUSH Q6H PRN PRN Reason: WITHDRAWAL(CONT SUBST) Methylprednisolone Sodium Succinate (Solu-Medrol -) 40 mg IVPUSH Q6H-IV [facility] Last Admin: 11/26/18 10:21 Dose: 40 mg Multivitamins/Minerals/Vitamin C (Tab-A-Vit -) 1 tab PO DAILY [facility] Last Admin: 11/26/18 11:02 Dose: 1 tab Pantoprazole Sodium (Protonix -) 20 mg PO DAILY [facility] Last Admin: 11/26/18 11:02 Dose: 20 mg Thiamine HCl (Vitamin B1 Injection -) 200 mg IVPB DAILY [facility] ASSESSMENT AND PLAN: Acute on Chronic Hypoxic and Hypercapneic Respiratory Failure Acute COPD Exacerbation Morbid Obesity Obstructive Sleep Apnea/Obesity Hypoventilation Syndrome Suspect Right Heart Failure Volume Overload Mediastinal Lymphadenopathy Atrial Flutter with RVR Cellulitis Acute Kidney Injury Alcohol Abuse - empiric medrol - inhaled bronchodilators - titrate Fio2 to keep Spo2 88-92% - BiPAP for acute hypercapnea - f/u repeat echocardiogram - consider inotropic support with lasix gtt but will d/w renal and cardiology - continue antibiotics - monitor urine output, creatinine - monitor for withdrawal symptoms - rate control - continue anticoagulation - outpt f/u of mediastinal lymphadenopathy - continue ICU monitoring for tenuous respiratory status critical care time spent in reviewing chart, evaluating patient and formulating plan 35 min
[2018-11-26] MEDS: THIAMINE HCL 200 MG/2 ML VIAL IVPB SCH (12:13)
--- NOTE | 2018-11-26 14:36 | PN ---
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 (short form) - Note 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: now in the ICU chart and events revieweed alert and conversant remains tachycardic on high flow oxygen no fevers Vital Signs Period Temp Pulse Resp BP Sys/Gregorio Pulse Ox Last 24 Hr 97 F-99.7 F 70-146 17-23 70-153/58-84 91-100 cor-rrr tachycardic lung decreased bs at bases abd firm, nt ext +edema, diffuse erythema up to abdomen arvizu intact CBC, BMP 11/26/18 05:30 11/26/18 05:30 Microbiology 11/24/18 04:00 Blood - Peripheral Venous Blood Culture - Preliminary NO GROWTH OBTAINED AFTER 48 HOURS, INCUBATION TO CONTINUE FOR 3 DAYS. 11/24/18 04:00 Blood - Peripheral Venous Blood Culture - Preliminary NO GROWTH OBTAINED AFTER 48 HOURS, INCUBATION TO CONTINUE FOR 3 DAYS. 11/24/18 12:50 Urine - Urine Clean Catch Urine Culture - Final NO GROWTH OBTAINED 11/24/18 12:25 Urine For Antigen Detection Legionella Antigen - Final 11/24/18 12:25 Urine For Antigen Detection Streptococcus pneumoniae Antigen (M - Final Current Medications Albuterol/Ipratropium (Duoneb -) 1 amp NEB RQID [facility] Last Admin: 11/26/18 11:50 Dose: 1 amp Apixaban (Eliquis -) 5 mg PO BID [facility] Last Admin: 11/26/18 11:02 Dose: 5 mg Aspirin (Asa -) 81 mg PO DAILY [facility] Last Admin: 11/26/18 11:02 Dose: 81 mg Budesonide/Formoterol Fumarate (Symbicort 160/4.5mcg -) 1 puff IH DAILY [facility] Last Admin: 11/25/18 10:18 Dose: 1 puff Chlordiazepoxide HCl (Librium -) 15 mg PO [id number] [facility] Stop: 11/27/18 11:01 Chlordiazepoxide HCl (Librium -) 25 mg PO Q4H PRN PRN Reason: WITHDRAWAL(CONT SUBST) Stop: 11/27/18 13:09 Chlordiazepoxide HCl (Librium -) 10 mg PO [id number] [facility] Stop: 11/28/18 11:01 Diltiazem HCl (Cardizem -) 30 mg PO Q6HPO [facility] Last Admin: 11/26/18 12:12 Dose: 30 mg Diltiazem HCl (Cardizem Injection -) 25 mg IVPUSH ONCE PRN PRN Reason: HYPERTENSION Gabapentin (Neurontin -) 100 mg PO DAILY [facility] Last Admin: 11/26/18 11:02 Dose: 100 mg Ceftriaxone Sodium 2 gm/ (Dextrose) 100 mls @ 200 mls/hr IVPB DAILY [facility]; Protocol Last Admin: 11/26/18 10:21 Dose: 200 mls/hr Insulin Aspart (Novolog Vial Sliding Scale -) 1 vial SQ ACHS [facility]; Protocol Last Admin: 11/26/18 12:13 Dose: Not Given Insulin Detemir (Levemir Vial) 10 units SQ HS [facility] Last Admin: 11/25/18 22:11 Dose: 10 units Lorazepam (Ativan Injection -) 1 mg IVPUSH Q6H PRN PRN Reason: WITHDRAWAL(CONT SUBST) Methylprednisolone Sodium Succinate (Solu-Medrol -) 40 mg IVPUSH Q6H-IV [facility] Last Admin: 11/26/18 10:21 Dose: 40 mg Multivitamins/Minerals/Vitamin C (Tab-A-Vit -) 1 tab PO DAILY [facility] Last Admin: 11/26/18 11:02 Dose: 1 tab Pantoprazole Sodium (Protonix -) 20 mg PO DAILY [facility] Last Admin: 11/26/18 11:02 Dose: 20 mg Thiamine HCl (Vitamin B1 Injection -) 200 mg IVPB DAILY [facility] Last Admin: 11/26/18 12:13 Dose: 200 mg a/p acute on chronic respiratory failure volume overload bilateral cellulitis COPD exacerbation mediastinal adenopathy aflutter-rate control thad etoh use continue rocephin d/w family at bedside-she has had swollen legs for months over 35 minutes spent in the care of this criticall ill ICU patient Problem List - Problems (1) Acute respiratory failure with hypoxia and hypercapnia Code(s): J96.01 - ACUTE RESPIRATORY FAILURE WITH HYPOXIA; J96.02 - ACUTE RESPIRATORY FAILURE WITH HYPERCAPNIA (2) Atrial flutter Code(s): I48.92 - UNSPECIFIED ATRIAL FLUTTER (3) Elevated LFTs Code(s): R94.5 - ABNORMAL RESULTS OF LIVER FUNCTION STUDIES (4) Pneumonia Code(s): J18.9 - PNEUMONIA, UNSPECIFIED ORGANISM (5) COPD exacerbation Code(s): J44.1 - CHRONIC OBSTRUCTIVE PULMONARY DISEASE W (ACUTE) EXACERBATION (6) Cellulitis Code(s): L03.90 - CELLULITIS, UNSPECIFIED (7) Morbid obesity Code(s): E66.01 - MORBID (SEVERE) OBESITY DUE TO EXCESS CALORIES
[2018-11-26] MEDS ORDERED: PT OWN MED DRAWER 7, Y5N ONE (14:58)
[2018-11-26] MEDS: BUDESONIDE/FORMETEROL FUMARATE 160/4.5 mcg INHALER IH SCH (14:59)
--- NOTE | 2018-11-26 15:35 | PN ---
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, Physician History of Present Illness: Pt seen and examined at bedside. She was confused earlier today. She feels that her breathing is a little better than yesterday. She is off of bipap and is on high flow oxygen. - Current Medication List Current Medications: Active Medications Albuterol/Ipratropium (Duoneb -) 1 amp NEB RQID [facility] Last Admin: 11/26/18 11:50 Dose: 1 amp Apixaban (Eliquis -) 5 mg PO BID [facility] Last Admin: 11/26/18 11:02 Dose: 5 mg Aspirin (Asa -) 81 mg PO DAILY [facility] Last Admin: 11/26/18 11:02 Dose: 81 mg Budesonide/Formoterol Fumarate (Symbicort 160/4.5mcg -) 1 puff IH DAILY [facility] Last Admin: 11/26/18 14:59 Dose: 1 puff Chlordiazepoxide HCl (Librium -) 15 mg PO [id number] [facility] Stop: 11/27/18 11:01 Chlordiazepoxide HCl (Librium -) 25 mg PO Q4H PRN PRN Reason: WITHDRAWAL(CONT SUBST) Stop: 11/27/18 13:09 Chlordiazepoxide HCl (Librium -) 10 mg PO I0M-UOD [facility] Stop: 11/28/18 11:01 Diltiazem HCl (Cardizem -) 30 mg PO Q6HPO [facility] Last Admin: 11/26/18 12:12 Dose: 30 mg Diltiazem HCl (Cardizem Injection -) 25 mg IVPUSH ONCE PRN PRN Reason: HYPERTENSION Gabapentin (Neurontin -) 100 mg PO DAILY [facility] Last Admin: 11/26/18 11:02 Dose: 100 mg Ceftriaxone Sodium 2 gm/ (Dextrose) 100 mls @ 200 mls/hr IVPB DAILY [facility]; Protocol Last Admin: 11/26/18 10:21 Dose: 200 mls/hr Insulin Aspart (Novolog Vial Sliding Scale -) 1 vial SQ ACHS [facility]; Protocol Last Admin: 11/26/18 12:13 Dose: Not Given Insulin Detemir (Levemir Vial) 10 units SQ HS [facility] Last Admin: 11/25/18 22:11 Dose: 10 units Lorazepam (Ativan Injection -) 1 mg IVPUSH Q6H PRN PRN Reason: WITHDRAWAL(CONT SUBST) Methylprednisolone Sodium Succinate (Solu-Medrol -) 40 mg IVPUSH Q6H-IV [facility] Last Admin: 11/26/18 14:55 Dose: 40 mg Multivitamins/Minerals/Vitamin C (Tab-A-Vit -) 1 tab PO DAILY [facility] Last Admin: 11/26/18 11:02 Dose: 1 tab Pantoprazole Sodium (Protonix -) 20 mg PO DAILY [facility] Last Admin: 11/26/18 11:02 Dose: 20 mg Thiamine HCl (Vitamin B1 Injection -) 200 mg IVPB DAILY [facility] Last Admin: 11/26/18 12:13 Dose: 200 mg - Objective Vital Signs: Vital Signs Temperature 98.2 F 11/26/18 10:00 Pulse Rate 135 H 11/26/18 12:00 Respiratory Rate 20 11/26/18 12:00 Blood Pressure 112/93 11/26/18 12:00 O2 Sat by Pulse Oximetry (%) 91 L 11/26/18 11:50 Constitutional: Yes: Mild Distress Eyes: Yes: Conjunctiva Clear Cardiovascular: Yes: S1, S2 Respiratory: Yes: On Nasal O2 Gastrointestinal: Yes: Soft, Abdomen, Obese Genitourinary: Yes: Incontinence Musculoskeletal: Yes: Muscle Weakness Edema: Yes Edema: LUE: 1+, RUE: 1+, LLE: 2+, RLE: 2+ Neurological: Yes: Oriented Psychiatric: Yes: Oriented Labs: CBC, BMP 11/26/18 05:30 11/26/18 05:30 INR, PTT INR 1.13 (0.83-1.09) H 11/23/18 16:40 - ....Imaging Chest X-ray: Report Reviewed Problem List - Problems (1) Hyperkalemia Code(s): E87.5 - HYPERKALEMIA (2) Acute on chronic respiratory failure with hypoxia and hypercapnia Code(s): J96.21 - ACUTE AND CHRONIC RESPIRATORY FAILURE WITH HYPOXIA; J96.22 - ACUTE AND CHRONIC RESPIRATORY FAILURE WITH HYPERCAPNIA (3) Acute renal failure Code(s): N17.9 - ACUTE KIDNEY FAILURE, UNSPECIFIED (4) Alcoholism Code(s): F10.20 - ALCOHOL DEPENDENCE, UNCOMPLICATED (5) Atrial flutter Code(s): I48.92 - UNSPECIFIED ATRIAL FLUTTER (6) Bilateral lower extremity edema Code(s): R60.0 - LOCALIZED EDEMA (7) COPD exacerbation Code(s): J44.1 - CHRONIC OBSTRUCTIVE PULMONARY DISEASE W (ACUTE) EXACERBATION Assessment/Plan Current Medications Generic Name Dose Route Start Last Admin Trade Name Freq PRN Reason Stop Dose Admin Albuterol/Ipratropium 1 amp 11/25/18 20:10 11/26/18 11:50 Duoneb - NEB 1 amp RQID [facility] Administration Apixaban 5 mg 11/24/18 10:00 11/26/18 11:02 Eliquis - PO 5 mg BID [facility] Administration Aspirin 81 mg 11/24/18 10:00 11/26/18 11:02 Asa - PO 81 mg DAILY [facility] Administration Budesonide/Formoterol Fumarate 1 puff 11/24/18 10:00 11/26/18 14:59 Symbicort 160/4.5mcg - IH 1 puff DAILY [facility] Administration Chlordiazepoxide HCl 15 mg 11/26/18 17:00 Librium - PO 11/27/18 11:01 [id number] [facility] Chlordiazepoxide HCl 25 mg 11/24/18 13:10 Librium - PO 11/27/18 13:09 Q4H PRN WITHDRAWAL(CONT SUBST) Chlordiazepoxide HCl 10 mg 11/27/18 17:00 Librium - PO 11/28/18 11:01 [id number] [facility] Diltiazem HCl 30 mg 11/24/18 06:00 11/26/18 12:12 Cardizem - PO 30 mg Q6HPO [facility] Administration Diltiazem HCl 25 mg 11/25/18 18:47 Cardizem Injection - IVPUSH ONCE PRN HYPERTENSION Gabapentin 100 mg 11/24/18 10:00 11/26/18 11:02 Neurontin - PO 100 mg DAILY [facility] Administration Ceftriaxone Sodium 2 gm/ 100 mls @ 200 mls/hr 11/25/18 10:00 11/26/18 10:21 Dextrose IVPB 200 mls/hr DAILY [facility] Administration Protocol Insulin Aspart 1 vial 11/24/18 11:00 11/26/18 12:13 Novolog Vial Sliding Scale - SQ Not Given ACHS [facility] Protocol Insulin Detemir 10 units 11/24/18 22:00 11/25/18 22:11 Levemir Vial SQ 10 units HS [facility] Administration Lorazepam 1 mg 11/26/18 11:22 Ativan Injection - IVPUSH Q6H PRN WITHDRAWAL(CONT SUBST) Methylprednisolone Sodium Succinate 40 mg 11/25/18 15:00 11/26/18 14:55 Solu-Medrol - IVPUSH 40 mg Q6H-IV [facility] Administration Multivitamins/Minerals/Vitamin C 1 tab 11/24/18 10:00 11/26/18 11:02 Tab-A-Vit - PO 1 tab DAILY [facility] Administration Pantoprazole Sodium 20 mg 11/24/18 11:30 11/26/18 11:02 Protonix - PO 20 mg DAILY [facility] Administration Thiamine HCl 200 mg 11/26/18 11:30 11/26/18 12:13 Vitamin B1 Injection - IVPB 200 mg DAILY [facility] Administration Impression 1. PITO 2. hyperkalemia 3. a-flutter 4. resp failure requiring bipap 5. DM 6. HTN 7. active smoker 8. etoh abuse 9. obesity 10. interstitial lung disease on CT scan 11. resp acidosis Plan - renal function is worsening - monitor potassium, improving - lasix as needed - renal workup in progress - follow ultrasound - discussed with ICU team - monitor urine output - different for pito is broad will make more recs after reviewing data - pt did get iv contrast on early on the - will follow closely
[2018-11-26] MEDS ORDERED: SODIUM BICARBONATE 8.4% 50 MEQ/50 ML DISP.SYRIN IVPUSH ONE (15:37)
--- NOTE | 2018-11-26 16:52 | EKG ---
Test Reason : Blood Pressure : / mmHG Vent. Rate : 107 BPM Atrial Rate : 267 BPM P-R Int : 000 ms QRS Dur : 086 ms QT Int : 356 ms P-R-T Axes : 000 118 051 degrees QTc Int : 475 ms ATRIAL FLUTTER WITH VARIABLE A-V BLOCK LEFT POSTERIOR FASCICULAR BLOCK NONSPECIFIC ST ABNORMALITY ABNORMAL ECG WHEN COMPARED WITH ECG OF 24-NOV-2018 13:54, NONSPECIFIC T WAVE ABNORMALITY NO LONGER EVIDENT IN LATERAL LEADS QT HAS LENGTHENED Confirmed by TRISH CASTILLO MD ([id number]) on 11/26/2018 4:52:36 PM Referred By: Confirmed By:TRISH CASTILLO MD
[2018-11-26] MEDS: chlordiazePOXIDE 5 MG CAPSULE PO SCH ×2 (17:43→22:44)
[2018-11-26] MEDS ORDERED: guaiFENesin 600 MG TABLET.ER (FP) PO ONE (18:03)
[2018-11-26] MEDS: INSULIN (LEVEMIR) 100 UNITS/ML UNITS SQ SCH (22:44)
[2018-11-27] MEDS: methylPREDNISolone NA SUCC 40 MG/1 ML VIAL IVPUSH SCH ×2 (04:00→09:06)
[2018-11-27 05:42] LABS: ARTERIAL BLD GAS O2 SATURATION 94.1 % (90-98.9); ARTERIAL BLOOD GAS BASE EXCESS 0.7 meq/l (-2-2); ARTERIAL BLOOD GAS PO2 81.9 mmHg (80-100); ARTERIAL BLOOD GAS pH 7.24 (7.35-7.45)
[2018-11-27 06:01] LABS: ALLENS TEST POSITIVE
[2018-11-27 06:09] LABS: BASO % 0.2 % (0-2.0); HEMATOCRIT 47.1 % (32.4-45.2); HEMOGLOBIN 14.8 GM/dL (10.7-15.3); LYMPH % 4.1 % (8-40); MCH 32.5 pg (25.7-33.7); MCHC 31.4 g/dl (32.0-36.0); MEAN CELL VOLUME 103.7 fl (80-96); MEAN PLT VOLUME 9.5 fl (7.5-11.1); MONO % 6.3 % (3.8-10.2); NEUT % 89.4 % (42.8-82.8); PLATELET COUNT 141 K/MM3 (134-434); RBC 4.54 M/mm3 (3.60-5.2); RDW 15.3 % (11.6-15.6)
[2018-11-27 06:09] LABS: ARTERIAL BLOOD GAS PCO2 74.2 mmHg (35-45)
[2018-11-27 06:42] LABS: ALBUMIN 2.9 g/dl (3.4-5.0); ALK PHOS 125 U/L (45-117); ANION GAP 8 MMOL/L (8-16); BILIRUBIN,TOTAL 0.4 mg/dL (0.2-1); BLOOD UREA NITROGEN 108 mg/dL (7-18); CALCIUM 8.1 mg/dL (8.5-10.1); CHLORIDE 92 mmol/L (98-107); CO2 31 mmol/L (21-32); CREATININE 2.8 mg/dL (0.55-1.3); GLUCOSE,RANDOM 249 mg/dL (74-106); N-TERMINAL BNP 2262.8 pg/ml (5-125); PHOSPHOROUS 8.2 mg/dL (2.5-4.9); POTASSIUM 5.5 mmol/L (3.5-5.1); SGOT/AST 20 U/L (15-37); SGPT/ALT 45 U/L (13-61); SODIUM 131 mmol/L (136-145); TOT PROT 6.4 g/dl (6.4-8.2)
[2018-11-27] MEDS: chlordiazePOXIDE 5 MG CAPSULE PO SCH ×2 (06:50→11:53)
[2018-11-27] MEDS: dilTIAZem HCL 30 MG TABLET (FP) PO SCH ×4 (06:51→22:59)
[2018-11-27] MEDS: INSULIN SLIDING SCALE (NOVOLOG) 1 VIAL SQ SCH ×4 (06:57→22:15)
--- NOTE | 2018-11-27 07:31 | PN ---
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, Physician Chief Complaint: Pt alert; denies chest pain easily dyspneic History of Present Illness: 53 YO woman with h/o COPD (placed on steroid course 2 days ago without relief) acute/chronic alcoholism (several glasses of rum daily), long-term cigarette smoker, sleep apnea, morbid obesity, DM, HTN, hyperlipidemia, cellulitis, metabolic syndrome, who p/w SOB and wheezing similar to her prior COPD exacerbation. She additionally notes awakening in the middle of the night last night with visual hallucinations. She additionally notes abdominal swelling recently, believes she has an abdominal infection but does not know what kind. Denies h/o heart arrhythmia. She has noticed her lips are more blue than normal. - Current Medication List Current Medications: Active Medications Albuterol/Ipratropium (Duoneb -) 1 amp NEB RQID [facility] Last Admin: 11/26/18 21:13 Dose: 1 amp Apixaban (Eliquis -) 5 mg PO BID [facility] Last Admin: 11/26/18 21:49 Dose: 5 mg Aspirin (Asa -) 81 mg PO DAILY [facility] Last Admin: 11/26/18 11:02 Dose: 81 mg Budesonide/Formoterol Fumarate (Symbicort 160/4.5mcg -) 1 puff IH DAILY [facility] Last Admin: 11/26/18 14:59 Dose: 1 puff Chlordiazepoxide HCl (Librium -) 15 mg PO [id number] [facility] Stop: 11/27/18 11:01 Last Admin: 11/27/18 06:50 Dose: 15 mg Chlordiazepoxide HCl (Librium -) 25 mg PO Q4H PRN PRN Reason: WITHDRAWAL(CONT SUBST) Stop: 11/27/18 13:09 Chlordiazepoxide HCl (Librium -) 10 mg PO [id number] [facility] Stop: 11/28/18 11:01 Diltiazem HCl (Cardizem -) 30 mg PO Q6HPO [facility] Last Admin: 11/27/18 06:51 Dose: 30 mg Diltiazem HCl (Cardizem Injection -) 25 mg IVPUSH ONCE PRN PRN Reason: HYPERTENSION Gabapentin (Neurontin -) 100 mg PO DAILY [facility] Last Admin: 11/26/18 11:02 Dose: 100 mg Ceftriaxone Sodium 2 gm/ (Dextrose) 100 mls @ 200 mls/hr IVPB DAILY [facility]; Protocol Last Admin: 11/26/18 10:21 Dose: 200 mls/hr Insulin Aspart (Novolog Vial Sliding Scale -) 1 vial SQ ACHS [facility]; Protocol Last Admin: 11/27/18 06:57 Dose: 6 units Insulin Detemir (Levemir Vial) 10 units SQ HS [facility] Last Admin: 11/26/18 22:44 Dose: 10 units Lorazepam (Ativan Injection -) 1 mg IVPUSH Q6H PRN PRN Reason: WITHDRAWAL(CONT SUBST) Last Admin: 11/26/18 20:43 Dose: 1 mg Methylprednisolone Sodium Succinate (Solu-Medrol -) 40 mg IVPUSH Q6H-IV [facility] Last Admin: 11/27/18 04:00 Dose: 40 mg Multivitamins/Minerals/Vitamin C (Tab-A-Vit -) 1 tab PO DAILY [facility] Last Admin: 11/26/18 11:02 Dose: 1 tab Pantoprazole Sodium (Protonix -) 20 mg PO DAILY [facility] Last Admin: 11/26/18 11:02 Dose: 20 mg Thiamine HCl (Vitamin B1 Injection -) 200 mg IVPB DAILY [facility] Last Admin: 11/26/18 12:13 Dose: 200 mg - Objective Vital Signs: Vital Signs Temperature 98.4 F 11/27/18 06:00 Pulse Rate 91 H 11/27/18 06:00 Respiratory Rate 22 H 11/27/18 06:00 Blood Pressure 95/59 L 11/27/18 06:00 O2 Sat by Pulse Oximetry (%) 94 L 11/27/18 05:41 Constitutional: Yes: Anxious Eyes: Yes: WNL HENT: Yes: WNL Neck: Yes: WNL Cardiovascular: Yes: Tachycardia, Pulse Irregular, S1 (varies in intensity) Respiratory: Yes: Tachypnea Gastrointestinal: Yes: Soft, Abdomen, Obese ...Rectal Exam: Yes: Deferred Genitourinary: No: Anuria Breast(s): Yes: WNL Musculoskeletal: Yes: Muscle Weakness Extremities: Yes: Cool Edema: No Peripheral Pulses WNL: Yes Integumentary: Yes: WNL Neurological: Yes: Alert, Oriented Psychiatric: Yes: Other Labs: CBC, BMP 11/27/18 05:30 11/27/18 05:30 INR, PTT INR 1.13 (0.83-1.09) H 11/23/18 16:40 - ....Imaging Chest X-ray: Image Reviewed (no acute pathology) Other: Image Reviewed (telemetry: AF/flutter; periods of RVR) Problem List - Problems (1) Atrial flutter Assessment/Plan: On IV diltiazem and PO diltiazem for HR control; titrate off IV as tolerated. On apixaban for anticoagulation. ECHO: unable to assess LVEF; repeat when HR better-controlled (if still difficult to read, will get MUGA). CT: no PE Code(s): I48.92 - UNSPECIFIED ATRIAL FLUTTER (2) Morbid obesity Code(s): E66.01 - MORBID (SEVERE) OBESITY DUE TO EXCESS CALORIES (3) COPD exacerbation Assessment/Plan: bronchodilators, O2, steroids per chief lifestyle officer. Code(s): J44.1 - CHRONIC OBSTRUCTIVE PULMONARY DISEASE W (ACUTE) EXACERBATION (4) Hyperlipidemia Code(s): E78.5 - HYPERLIPIDEMIA, UNSPECIFIED (5) HTN (hypertension) Assessment/Plan: On diltiazem. F/u ECHO for LVEF, wall thickness, chamber sizes, valve status (unable to assess LVEF initially; repeat ECHO, ideally when HR is better-controlled). Code(s): I10 - ESSENTIAL (PRIMARY) HYPERTENSION (6) Diabetes Code(s): E11.9 - TYPE 2 DIABETES MELLITUS WITHOUT COMPLICATIONS (7) [place] cardiac risk >20% in next 10 years Assessment/Plan: TNI negative x 2. BP and glucose control. Keep LDL cholesterol < 70 mg/dL. Smoking cessation. Dietary consult; weight loss. Exercise will be important in the future. Coronary artery evaluation when stable (stress MIBI and/or coronary angiogram). Code(s): Z91.89 - OTH PERSONAL RISK FACTORS, NOT ELSEWHERE CLASSIFIED (8) Elevated LFTs Code(s): R94.5 - ABNORMAL RESULTS OF LIVER FUNCTION STUDIES (9) Cigarette nicotine dependence Assessment/Plan: The importance of stopping was discussed (pt's mother was in room; pt says she gets defensive, because her mother is always lecturing her). Code(s): F17.210 - NICOTINE DEPENDENCE, CIGARETTES, UNCOMPLICATED (10) Alcoholism Assessment/Plan: Detox protocol. Code(s): F10.20 - ALCOHOL DEPENDENCE, UNCOMPLICATED (11) Cellulitis Assessment/Plan: On antibiotics; f/u with ID. Code(s): L03.90 - CELLULITIS, UNSPECIFIED (12) Sleep apnea Assessment/Plan: workup, if not already diagnosed. Code(s): G47.30 - SLEEP APNEA, UNSPECIFIED (13) Ascites Code(s): R18.8 - OTHER ASCITES (14) Interstitial lung disease Assessment/Plan: F/u with chief lifestyle officer. R/o sarcoid. R/o sleep apnea. Code(s): J84.9 - INTERSTITIAL PULMONARY DISEASE, UNSPECIFIED (15) CHF (congestive heart failure) Assessment/Plan: Elevated BNP. Problematic assessing JVP. F?u BUn/Cr, electrolytes, daily weight, IS and Os,. ECHO repeat for LVEF. Cpmtrp; AF/flutter HR. Code(s): I50.9 - HEART FAILURE, UNSPECIFIED (16) Hyperkalemia Assessment/Plan: treat (Kayexalate); keep K+ level 4-4.5. Code(s): E87.5 - HYPERKALEMIA Assessment/Plan CCU t4ime spent: 35 minutes.
[2018-11-27] MEDS ORDERED: SODIUM POLYSTYRENE SULFONATE 15 GM/60 ML BOTTLE PO ONE (07:46)
--- NOTE | 2018-11-27 07:48 | PN ---
Physical Exam: SUBJECTIVE: Patient seen and examined. Denies pain. Endorses shortness of breath. OBJECTIVE: Vital Signs Period Temp Pulse Resp BP Sys/Gregorio Pulse Ox Last 24 Hr 97.9 F-98.4 F 70-135 17-22 78-117/57-95 90-94 GENERAL: Oriented to person this morning, lethargic, obese, in moderate respiratory distress on BIPAP HEAD: NC/AT EYES: EVANGELISTA, EOMI ENT: Moist mucous membranes. Cyanotic lips NECK: supple LUNGS: b/l coarse breath sounds throughout w/ moderately poor respiratory effort HEART: AFIB ,normal S1 and S2 without murmur, rub or gallop. ABDOMEN: Soft, protuberant, edematous, nontender, distended, normoactive bowel sounds, no guarding BUE: B/l hand swelling, not likely cellulitis, sensation and ROM intact. Cyanosis of distal digits LOWER EXTREMITIES: BLE erythema to knee; no fluctuance; 2+ pulses, warm, well- perfused. No calf tenderness. +1 peripheral edema NEUROLOGICAL: no focal deficit Active Medications Generic Name Dose Route Start Last Admin Trade Name Freq PRN Reason Stop Dose Admin Albuterol/Ipratropium 1 amp 11/25/18 20:10 11/26/18 21:13 Duoneb - NEB 1 amp RQID [facility] Administration Apixaban 5 mg 11/24/18 10:00 11/26/18 21:49 Eliquis - PO 5 mg BID [facility] Administration Aspirin 81 mg 11/24/18 10:00 11/26/18 11:02 Asa - PO 81 mg DAILY [facility] Administration Budesonide/Formoterol Fumarate 1 puff 11/24/18 10:00 11/26/18 14:59 Symbicort 160/4.5mcg - IH 1 puff DAILY [facility] Administration Chlordiazepoxide HCl 15 mg 11/26/18 17:00 11/27/18 06:50 Librium - PO 11/27/18 11:01 15 mg [id number] [facility] Administration Chlordiazepoxide HCl 25 mg 11/24/18 13:10 Librium - PO 11/27/18 13:09 Q4H PRN WITHDRAWAL(CONT SUBST) Chlordiazepoxide HCl 10 mg 11/27/18 17:00 Librium - PO 11/28/18 11:01 [id number] [facility] Diltiazem HCl 30 mg 11/24/18 06:00 11/27/18 06:51 Cardizem - PO 30 mg Q6HPO [facility] Administration Diltiazem HCl 25 mg 11/25/18 18:47 Cardizem Injection - IVPUSH ONCE PRN HYPERTENSION Gabapentin 100 mg 11/24/18 10:00 11/26/18 11:02 Neurontin - PO 100 mg DAILY [facility] Administration Ceftriaxone Sodium 2 gm/ 100 mls @ 200 mls/hr 11/25/18 10:00 11/26/18 10:21 Dextrose IVPB 200 mls/hr DAILY [facility] Administration Protocol Insulin Aspart 1 vial 11/24/18 11:00 11/27/18 06:57 Novolog Vial Sliding Scale - SQ 6 units ACHS [facility] Administration Protocol Insulin Detemir 10 units 11/24/18 22:00 11/26/18 22:44 Levemir Vial SQ 10 units HS [facility] Administration Lorazepam 1 mg 11/26/18 11:22 11/26/18 20:43 Ativan Injection - IVPUSH 1 mg Q6H PRN Administration WITHDRAWAL(CONT SUBST) Methylprednisolone Sodium Succinate 40 mg 11/25/18 15:00 11/27/18 04:00 Solu-Medrol - IVPUSH 40 mg Q6H-IV [facility] Administration Multivitamins/Minerals/Vitamin C 1 tab 11/24/18 10:00 11/26/18 11:02 Tab-A-Vit - PO 1 tab DAILY [facility] Administration Pantoprazole Sodium 20 mg 11/24/18 11:30 11/26/18 11:02 Protonix - PO 20 mg DAILY [facility] Administration Thiamine HCl 200 mg 11/26/18 11:30 11/26/18 12:13 Vitamin B1 Injection - IVPB 200 mg DAILY [facility] Administration ASSESSMENT/PLAN: The pt is a 53F with a PMH of COPD, acute/chronic EtOH abuse (several glasses of rum daily), long-term tobacco abuse, TRINH, morbid obesity, DM, HTN, hyperlipidemia, cellulites, metabolic syndrome who was transferred to ICU due to worsening respiratory failure 11/27 Patient w/ worsening mentation and respiratory status throughout the morning. Worsening repeat ABG. Decision was made to intubate for hypercapnic/hypoxic respiratory failure #Neuro Sedation -Propofol ETOH abuse , dependence -Librium held 2/2 lethargic mental status -Ativan 2mg IV PRN for withdrawal symptoms Tobacco abuse -Educated -Nicotine patch #CV -AFlutter -HTN -HLD -Cardizim 25 IV push PRN -Hold lisinopril due to worsening kidney function , resume -Cardiology Dr Jefferson -Cont ASA , Apixaban Hypervolemia w/ pulmonary congestion -Lasix 40mg IV once #Pulm Acute hypercapnic respiratory failure due to pulmonary edema can Not R/O CHF vs copd exacerbation ILD new diagnosed on CT -Repeat ECHO pending --Previous unable to evaluate R heart function -Steroids decreased to 40mg IV daily, con symbicort -Cont broncodilators -s/p intubation 11/27/2018 for acute decompensation #GI Nutrition -NPO GI Ppx -Protonix 40 PO daily # PITO -IVF held 2/2 respiratory edema/volume overload -Avoid nephrotoxic agents -Nephrology consulted Hyperkalemia -Will give lasix 40IVP once #Heme DVT Ppx: scds , Apixaban , ASA #ID Cellulitis -Cont abx Ceftriaxone 2 gm daily -ID consulted #Endo DM -BGM ACHS -ISS -Levemir 10 units HS Morbid obesity -Educated about low calories diet , losing weight , daily exercise Dispo: Patient continues to require ICU level of care Visit type - Emergency Visit Emergency Visit: Yes ED Registration Date: 11/23/18 Care time: The patient presented to the Emergency Department on the above date and was hospitalized for further evaluation of their emergent condition. - New Patient This patient is new to me today: No - Critical Care Critical Care patient: Yes Total Critical Care Time (in minutes): 35 Critical Care Statement: The care of this patient involved high complexity decision making to prevent further life threatening deterioration of the patient 's condition and/or to evaluate & treat vital organ system(s) failure or risk of failure.
[2018-11-27] MEDS ORDERED: FUROSEMIDE 40 MG/4 ML INJECTABLE VIAL IVPUSH ONE (08:05)
[2018-11-27] MEDS: ALBUTEROL SO4 2.5/IPRATROPIUM 0.5 INH SOL 3 ML VIAL.NEB. NEB SCH ×4 (08:20→21:08)
[2018-11-27] MEDS ORDERED: DEXTROSE 5%-WATER 100 ML IVPB ONE (08:53)
[2018-11-27] MEDS: CEFTRIAXONE 2 GM in DEXTROSE 5%-WATER 100 ML IVPB SCH (09:09)
[2018-11-27] MEDS: MULTIVITAMINS (DAILY MVI) TABLET (FP) PO SCH (10:21)
[2018-11-27] MEDS: APIXABAN 5 MG TABLET PO SCH ×2 (10:21→21:44)
[2018-11-27] MEDS: ASPIRIN 81 MG CHEWABLE TABLETS PO SCH (10:21)
[2018-11-27] MEDS: PANTOPRAZOLE 20 MG TABLET (FP) PO SCH (10:21)
[2018-11-27] MEDS: THIAMINE HCL 200 MG/2 ML VIAL IVPB SCH (10:21)
[2018-11-27] MEDS: GABAPENTIN 100 MG CAPSULE (FP) PO SCH (10:21)
--- NOTE | 2018-11-27 12:13 | EKG ---
Test Reason : Blood Pressure : / mmHG Vent. Rate : 123 BPM Atrial Rate : 125 BPM P-R Int : 000 ms QRS Dur : 090 ms QT Int : 332 ms P-R-T Axes : 000 116 -08 degrees QTc Int : 475 ms ATRIAL FLUTTER WITH VARIABLE A-V BLOCK LEFT POSTERIOR FASCICULAR BLOCK ABNORMAL ECG Confirmed by JULIET TORRES, CARLIN ([id number]) on 11/27/2018 12:13:35 PM Referred By: TRISH CASTILLO Confirmed By:CARLIN CHUNG MD
[2018-11-27] MEDS: BUDESONIDE/FORMETEROL FUMARATE 160/4.5 mcg INHALER IH SCH (12:18)
[2018-11-27] MEDS ORDERED: ETOMIDATE 20 MG/10 ML AMPUL IVPUSH ONE (12:25)
[2018-11-27 12:28] LABS: ARTERIAL BLD GAS O2 SATURATION 87.8 % (90-98.9); ARTERIAL BLOOD GAS BASE EXCESS 0.2 meq/l (-2-2); ARTERIAL BLOOD GAS PO2 66.5 mmHg (80-100)
[2018-11-27 12:32] LABS: ALLENS TEST POSITIVE
[2018-11-27 12:33] LABS: ARTERIAL BLOOD GAS PCO2 91.6 mmHg (35-45); ARTERIAL BLOOD GAS pH 7.18 (7.35-7.45)
--- NOTE | 2018-11-27 12:40 | PN ---
Teaching Attending Note Name of Resident: Heriberto Urena ATTENDING PHYSICIAN STATEMENT I saw and evaluated the patient. I reviewed the resident's note and discussed the case with the resident. I agree with the resident's findings and plan as documented. SUBJECTIVE: Pt seen and examined in the ICU. More lethargic today. ABG with worsening respiratory acidosis. OBJECTIVE: Vital Signs Period Temp Pulse Resp BP Sys/Gregorio Pulse Ox Last 24 Hr 97.9 F-98.4 F 91-135 17-22 95-117/58-95 90-95 Intake & Output 11/24/18 11/25/18 11/26/18 11/27/18 23:59 23:59 23:59 23:59 Intake Total 290 200 260 Output Total 200 500 Balance 290 0 260 -500 Weight 133.7 kg 133.696 kg Gen: lethargic, tachypneic Heart: RRR Lung: distant breath sounds Abd: soft, nontender Ext: + edema CBC, BMP 11/27/18 05:30 11/27/18 05:30 Active Medications Albuterol/Ipratropium (Duoneb -) 1 amp NEB RQID [facility] Last Admin: 11/26/18 21:13 Dose: 1 amp Apixaban (Eliquis -) 5 mg PO BID [facility] Last Admin: 11/27/18 10:21 Dose: 5 mg Aspirin (Asa -) 81 mg PO DAILY [facility] Last Admin: 11/27/18 10:21 Dose: 81 mg Budesonide/Formoterol Fumarate (Symbicort 160/4.5mcg -) 1 puff IH DAILY [facility] Last Admin: 11/27/18 12:18 Dose: Not Given Chlordiazepoxide HCl (Librium -) 25 mg PO Q4H PRN PRN Reason: WITHDRAWAL(CONT SUBST) Stop: 11/27/18 13:09 Chlordiazepoxide HCl (Librium -) 10 mg PO [id number] [facility] Stop: 11/28/18 11:01 Diltiazem HCl (Cardizem -) 30 mg PO Q6HPO [facility] Last Admin: 11/27/18 11:54 Dose: 30 mg Diltiazem HCl (Cardizem Injection -) 25 mg IVPUSH ONCE PRN PRN Reason: HYPERTENSION Gabapentin (Neurontin -) 100 mg PO DAILY [facility] Last Admin: 11/27/18 10:21 Dose: 100 mg Ceftriaxone Sodium 2 gm/ (Dextrose) 100 mls @ 200 mls/hr IVPB DAILY [facility]; Protocol Last Admin: 11/27/18 09:09 Dose: 200 mls/hr Insulin Aspart (Novolog Vial Sliding Scale -) 1 vial SQ ACHS [facility]; Protocol Last Admin: 11/27/18 06:57 Dose: 6 units Insulin Detemir (Levemir Vial) 10 units SQ HS [facility] Last Admin: 11/26/18 22:44 Dose: 10 units Lorazepam (Ativan Injection -) 1 mg IVPUSH Q6H PRN PRN Reason: WITHDRAWAL(CONT SUBST) Last Admin: 11/26/18 20:43 Dose: 1 mg Methylprednisolone Sodium Succinate (Solu-Medrol -) 40 mg IVPUSH DAILY [facility] Multivitamins/Minerals/Vitamin C (Tab-A-Vit -) 1 tab PO DAILY [facility] Last Admin: 11/27/18 10:21 Dose: 1 tab Pantoprazole Sodium (Protonix -) 20 mg PO DAILY [facility] Last Admin: 11/27/18 10:21 Dose: 20 mg Thiamine HCl (Vitamin B1 Injection -) 200 mg IVPB DAILY [facility] Last Admin: 11/27/18 10:21 Dose: 200 mg ASSESSMENT AND PLAN: Acute on Chronic Hypoxic and Hypercapneic Respiratory Failure Acute COPD Exacerbation Morbid Obesity Obstructive Sleep Apnea/Obesity Hypoventilation Syndrome Suspect Right Heart Failure Volume Overload Mediastinal Lymphadenopathy Atrial Flutter with RVR Cellulitis Acute Kidney Injury Alcohol Abuse - will need intubation - taper empiric medrol - inhaled bronchodilators - titrate Fio2 to keep Spo2 88-92% - lasix today - continue antibiotics - monitor urine output, creatinine - monitor for withdrawal symptoms - rate control - continue anticoagulation - outpt f/u of mediastinal lymphadenopathy - continue ICU monitoring for tenuous respiratory status critical care time spent in reviewing chart, evaluating patient and formulating plan 35 min
[2018-11-27] MEDS ORDERED: PROPOFOL 1,000,000 MCG/100 ML VIAL ONE (12:43)
--- NOTE | 2018-11-27 13:04 | PN ---
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 (short form) - Note 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: Events noted] pt intubated- did not tolerate BIPAP/high flow O2 Vital Signs - 24 hr 11/26/18 11/26/18 11/26/18 14:00 16:21 18:00 Temperature 97.9 F Pulse Rate 133 H 125 H 135 H Respiratory 19 19 Rate Blood Pressure 117/58 L 112/73 O2 Sat by Pulse 90 L Oximetry (%) 11/26/18 11/26/18 11/26/18 20:00 20:20 21:00 Temperature Pulse Rate 135 H Respiratory 17 Rate Blood Pressure 115/82 O2 Sat by Pulse 94 L 93 L Oximetry (%) 11/26/18 11/26/18 11/27/18 22:00 23:06 00:00 Temperature 98.0 F Pulse Rate 121 H 123 H Respiratory 18 Rate Blood Pressure 101/62 107/72 O2 Sat by Pulse 91 L Oximetry (%) 11/27/18 11/27/18 11/27/18 01:35 02:00 05:41 Temperature 98.2 F Pulse Rate 133 H Respiratory 22 H Rate Blood Pressure 112/95 O2 Sat by Pulse 94 L 94 L Oximetry (%) 11/27/18 11/27/18 11/27/18 06:00 08:41 12:00 Temperature 98.4 F Pulse Rate 91 H 91 H 128 H Respiratory 22 H 20 22 H Rate Blood Pressure 95/59 L 97/67 105/77 O2 Sat by Pulse Oximetry (%) 11/27/18 12:32 Temperature Pulse Rate Respiratory Rate Blood Pressure O2 Sat by Pulse 95 Oximetry (%) Current Medications Generic Name Dose Route Start Last Admin Trade Name Freq PRN Reason Stop Dose Admin Albuterol/Ipratropium 1 amp 11/25/18 20:10 11/26/18 21:13 Duoneb - NEB 1 amp RQID [facility] Administration Apixaban 5 mg 11/24/18 10:00 11/27/18 10:21 Eliquis - PO 5 mg BID [facility] Administration Aspirin 81 mg 11/24/18 10:00 11/27/18 10:21 Asa - PO 81 mg DAILY [facility] Administration Budesonide/Formoterol Fumarate 1 puff 11/24/18 10:00 11/27/18 12:18 Symbicort 160/4.5mcg - IH Not Given DAILY [facility] Chlordiazepoxide HCl 25 mg 11/24/18 13:10 Librium - PO 11/27/18 13:09 Q4H PRN WITHDRAWAL(CONT SUBST) Chlordiazepoxide HCl 10 mg 11/27/18 17:00 Librium - PO 11/28/18 11:01 P4H-WUT [facility] Diltiazem HCl 30 mg 11/24/18 06:00 11/27/18 11:54 Cardizem - PO 30 mg Q6HPO [facility] Administration Diltiazem HCl 25 mg 11/25/18 18:47 Cardizem Injection - IVPUSH ONCE PRN HYPERTENSION Etomidate 20 mg 11/27/18 12:57 Amidate - IVPUSH 11/27/18 12:58 NOW ONE Gabapentin 100 mg 11/24/18 10:00 11/27/18 10:21 Neurontin - PO 100 mg DAILY [facility] Administration Ceftriaxone Sodium 2 gm/ 100 mls @ 200 mls/hr 11/25/18 10:00 11/27/18 09:09 Dextrose IVPB 200 mls/hr DAILY [facility] Administration Protocol Insulin Aspart 1 vial 11/24/18 11:00 11/27/18 06:57 Novolog Vial Sliding Scale - SQ 6 units ACHS [facility] Administration Protocol Insulin Detemir 10 units 11/24/18 22:00 11/26/18 22:44 Levemir Vial SQ 10 units HS [facility] Administration Lorazepam 1 mg 11/26/18 11:22 11/26/18 20:43 Ativan Injection - IVPUSH 1 mg Q6H PRN Administration WITHDRAWAL(CONT SUBST) Methylprednisolone Sodium Succinate 40 mg 11/28/18 10:00 Solu-Medrol - IVPUSH DAILY [facility] Multivitamins/Minerals/Vitamin C 1 tab 11/24/18 10:00 11/27/18 10:21 Tab-A-Vit - PO 1 tab DAILY [facility] Administration Pantoprazole Sodium 20 mg 11/24/18 11:30 11/27/18 10:21 Protonix - PO 20 mg DAILY [facility] Administration Propofol 50,000 mcg 11/27/18 12:57 Diprivan - IVPUSH 11/27/18 12:58 ONCE ONE Rocuronium [place] 50 mg 11/27/18 12:57 Zemuron - IV 11/27/18 12:58 ONCE ONE Thiamine HCl 200 mg 11/26/18 11:30 11/27/18 10:21 Vitamin B1 Injection - IVPB 200 mg DAILY [facility] Administration Laboratory Results - last 24 hr 11/26/18 11/26/18 11/26/18 12:11 15:45 16:17 WBC RBC Hgb Hct MCV MCH MCHC RDW Plt Count MPV Absolute Neuts (auto) Neutrophils % Lymphocytes % Monocytes % Eosinophils % Basophils % Nucleated RBC % Puncture Site ABG pH ABG pCO2 at Pt Temp ABG pO2 at Pt Temp ABG HCO3 ABG O2 Sat (Measured) ABG O2 Content ABG Base Excess Mendoza Test O2 Delivery Device Oxygen Flow Rate Vent Mode Mechanical Rate Sodium Potassium Chloride Carbon Dioxide Anion Gap BUN Creatinine Creat Clearance w eGFR POC Glucometer 172.81209 [phone] Random Glucose Calcium Phosphorus Magnesium Total Bilirubin AST ALT Alkaline Phosphatase B-Natriuretic Peptide Total Protein Albumin Ur Random Sodium < 18 L Ur Random Potassium 22.7 Ur Random Chloride < 11 L 11/26/18 11/27/18 11/27/18 22:39 05:23 05:30 WBC 9.0 RBC 4.54 Hgb 14.8 Hct 47.1 H MCV 103.7 H MCH 32.5 MCHC 31.4 L RDW 15.3 Plt Count 141 MPV 9.5 Absolute Neuts (auto) 8.1 H Neutrophils % 89.4 H Lymphocytes % 4.1 L D Monocytes % 6.3 Eosinophils % 0.0 Basophils % 0.2 Nucleated RBC % 0 Puncture Site Right radial ABG pH 7.24 L* ABG pCO2 at Pt Temp 74.2 H* ABG pO2 at Pt Temp 81.9 ABG HCO3 30.5 H ABG O2 Sat (Measured) 94.1 ABG O2 Content 20.0 ABG Base Excess 0.7 Mendoza Test Positive O2 Delivery Device Bipap Oxygen Flow Rate 40% Vent Mode S/t Mechanical Rate [id number] Sodium Potassium Chloride Carbon Dioxide Anion Gap BUN Creatinine Creat Clearance w eGFR POC Glucometer [phone] Random Glucose Calcium Phosphorus Magnesium Total Bilirubin AST ALT Alkaline Phosphatase B-Natriuretic Peptide Total Protein Albumin Ur Random Sodium Ur Random Potassium Ur Random Chloride 11/27/18 11/27/18 11/27/18 05:30 06:20 12:22 WBC RBC Hgb Hct MCV MCH MCHC RDW Plt Count MPV Absolute Neuts (auto) Neutrophils % Lymphocytes % Monocytes % Eosinophils % Basophils % Nucleated RBC % Puncture Site Right radial ABG pH 7.18 L* ABG pCO2 at Pt Temp 91.6 H* D ABG pO2 at Pt Temp 66.5 L ABG HCO3 32.4 H ABG O2 Sat (Measured) 87.8 L ABG O2 Content 19.3 ABG Base Excess 0.2 Mendoza Test Positive O2 Delivery Device Oxygen Flow Rate Yes Vent Mode Mechanical Rate Sodium 131 L Potassium 5.5 H Chloride 92 L Carbon Dioxide 31 Anion Gap 8 BUN 108 H* Creatinine 2.8 H Creat Clearance w eGFR 17.61 POC Glucometer [phone] Random Glucose 249 H Calcium 8.1 L Phosphorus 8.2 H Magnesium 3.0 H Total Bilirubin 0.4 AST 20 ALT 45 Alkaline Phosphatase 125 H B-Natriuretic Peptide 2262.8 H Total Protein 6.4 Albumin 2.9 L Ur Random Sodium Ur Random Potassium Ur Random Chloride intubated sedated S1 S2 RRR Lungs decreased breath sounds Abd- soft, NT,obese, ND edema + PLAN In ICU - monitor O2 sat sedated on vent Ativan prn for withdrawal on ceftriaxone continue with meds add Thiamine Problem List - Problems (1) Acute on chronic respiratory failure with hypoxia and hypercapnia Code(s): J96.21 - ACUTE AND CHRONIC RESPIRATORY FAILURE WITH HYPOXIA; J96.22 - ACUTE AND CHRONIC RESPIRATORY FAILURE WITH HYPERCAPNIA (2) Acute renal failure Code(s): N17.9 - ACUTE KIDNEY FAILURE, UNSPECIFIED (3) Acute respiratory failure with hypoxia and hypercapnia Code(s): J96.01 - ACUTE RESPIRATORY FAILURE WITH HYPOXIA; J96.02 - ACUTE RESPIRATORY FAILURE WITH HYPERCAPNIA (4) Alcoholism Code(s): F10.20 - ALCOHOL DEPENDENCE, UNCOMPLICATED (5) Atrial flutter Code(s): I48.92 - UNSPECIFIED ATRIAL FLUTTER (6) Bilateral lower extremity edema Code(s): R60.0 - LOCALIZED EDEMA (7) COPD exacerbation Code(s): J44.1 - CHRONIC OBSTRUCTIVE PULMONARY DISEASE W (ACUTE) EXACERBATION
[2018-11-27] MEDS ORDERED: ETOMIDATE 40 MG/20 ML VIAL IVPUSH ONE (13:15)
[2018-11-27] MEDS ORDERED: PROPOFOL 200 MG/20 ML VIAL IVPUSH ONE (13:15)
[2018-11-27] MEDS ORDERED: ROCURONIUM BROMIDE 50 MG/5 ML VIAL IV ONE (13:15)
--- NOTE | 2018-11-27 13:29 | PROC ---
<Heriberto Urena - Last Filed: 11/27/18 13:27> Intubation - Intubation Reason for Intubation: Respiratory Insufficiency, Respiratory Failure Time of Intubation: 12:55 Intubation Method: orotracheal Blade used: Mac Tube Size (cm): 7.5 Tube position @ lip (cm): 19 Tube position confirmed by: Direct visualization, CO2 detector, Chest x-ray, Breath sounds Breath Sounds after Intubation: equal Post Intubation Xray: Yes <Solo Zimmerman MD - Last Filed: 11/27/18 13:46> Procedure Note Procedure: I supervised and was present during the entire procedure. Solo Zimmerman MD
--- NOTE | 2018-11-27 13:37 | PN ---
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 (short form) - Note 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: just intubated hypercapneic respiratory failure Vital Signs Period Temp Pulse Resp BP Sys/Gregorio Pulse Ox Last 24 Hr 97.9 F-98.4 F 91-135 14-22 95-117/58-95 90-100 cor-rrr lungs decreased bs at bases abd firm, nt ext +edema diffuse erythema unchanged CBC, BMP 11/27/18 05:30 11/27/18 05:30 Microbiology 11/24/18 04:00 Blood - Peripheral Venous Blood Culture - Preliminary NO GROWTH OBTAINED AFTER 72 HOURS, INCUBATION TO CONTINUE FOR 2 DAYS. 11/24/18 04:00 Blood - Peripheral Venous Blood Culture - Preliminary NO GROWTH OBTAINED AFTER 72 HOURS, INCUBATION TO CONTINUE FOR 2 DAYS. 11/24/18 12:50 Urine - Urine Clean Catch Urine Culture - Final NO GROWTH OBTAINED 11/24/18 12:25 Urine For Antigen Detection Legionella Antigen - Final 11/24/18 12:25 Urine For Antigen Detection Streptococcus pneumoniae Antigen (M - Final a/p acute on chronic respiratory failure volume overload bilateral cellulitis COPD exacerbation mediastinal adenopathy aflutter-rate control thad etoh use erythema of legs unchanged doubt cellulitis will d/c rocephin cutlures negative Problem List - Problems (1) Acute respiratory failure with hypoxia and hypercapnia Code(s): J96.01 - ACUTE RESPIRATORY FAILURE WITH HYPOXIA; J96.02 - ACUTE RESPIRATORY FAILURE WITH HYPERCAPNIA (2) Atrial flutter Code(s): I48.92 - UNSPECIFIED ATRIAL FLUTTER (3) Elevated LFTs Code(s): R94.5 - ABNORMAL RESULTS OF LIVER FUNCTION STUDIES (4) Pneumonia Code(s): J18.9 - PNEUMONIA, UNSPECIFIED ORGANISM (5) COPD exacerbation Code(s): J44.1 - CHRONIC OBSTRUCTIVE PULMONARY DISEASE W (ACUTE) EXACERBATION (6) Cellulitis Code(s): L03.90 - CELLULITIS, UNSPECIFIED (7) Morbid obesity Code(s): E66.01 - MORBID (SEVERE) OBESITY DUE TO EXCESS CALORIES
[2018-11-27 14:12] LABS: HBSAG SCREEN Negative (Negative); HEP B CORE AB, TOT Positive (Negative)
[2018-11-27] MEDS: PROPOFOL 1,000,000 MCG/100 ML VIAL IVPB SCH (14:25)
[2018-11-27 15:32] LABS: ARTERIAL BLD GAS O2 SATURATION 93.9 % (90-98.9); ARTERIAL BLOOD GAS BASE EXCESS -0.6 meq/l (-2-2); ARTERIAL BLOOD GAS PCO2 93.6 mmHg (35-45)
[2018-11-27 15:34] LABS: ALLENS TEST POSITIVE
[2018-11-27 15:38] LABS: ARTERIAL BLOOD GAS pH 7.16 (7.35-7.45)
--- NOTE | 2018-11-27 15:50 | PN ---
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, Physician History of Present Illness: Pt seen and examined at bedside. She has worsening shortness of breath and is increasingly confused. - Current Medication List Current Medications: Active Medications Albuterol/Ipratropium (Duoneb -) 1 amp NEB RQID [facility] Last Admin: 11/27/18 15:45 Dose: 1 amp Apixaban (Eliquis -) 5 mg PO BID [facility] Last Admin: 11/27/18 10:21 Dose: 5 mg Aspirin (Asa -) 81 mg PO DAILY [facility] Last Admin: 11/27/18 10:21 Dose: 81 mg Budesonide/Formoterol Fumarate (Symbicort 160/4.5mcg -) 1 puff IH DAILY [facility] Last Admin: 11/27/18 12:18 Dose: Not Given Chlordiazepoxide HCl (Librium -) 10 mg PO [id number] [facility] Stop: 11/28/18 11:01 Diltiazem HCl (Cardizem -) 30 mg PO Q6HPO [facility] Last Admin: 11/27/18 11:54 Dose: 30 mg Diltiazem HCl (Cardizem Injection -) 25 mg IVPUSH ONCE PRN PRN Reason: HYPERTENSION Gabapentin (Neurontin -) 100 mg PO DAILY [facility] Last Admin: 11/27/18 10:21 Dose: 100 mg Propofol (Diprivan -) 1,000,000 mcg in 100 mls @ 4.011 mls/hr IVPB TITR [facility]; Protocol Last Admin: 11/27/18 14:25 Dose: 10 mcg/kg/min, 8.022 mls/hr Insulin Aspart (Novolog Vial Sliding Scale -) 1 vial SQ ACHS [facility]; Protocol Last Admin: 11/27/18 14:50 Dose: 4 units Insulin Detemir (Levemir Vial) 10 units SQ HS [facility] Last Admin: 11/26/18 22:44 Dose: 10 units Lorazepam (Ativan Injection -) 1 mg IVPUSH Q6H PRN PRN Reason: WITHDRAWAL(CONT SUBST) Last Admin: 11/26/18 20:43 Dose: 1 mg Methylprednisolone Sodium Succinate (Solu-Medrol -) 40 mg IVPUSH DAILY [facility] Multivitamins/Minerals/Vitamin C (Tab-A-Vit -) 1 tab PO DAILY [facility] Last Admin: 11/27/18 10:21 Dose: 1 tab Pantoprazole Sodium (Protonix -) 20 mg PO DAILY [facility] Last Admin: 11/27/18 10:21 Dose: 20 mg Thiamine HCl (Vitamin B1 Injection -) 200 mg IVPB DAILY [facility] Last Admin: 11/27/18 10:21 Dose: 200 mg - Objective Vital Signs: Vital Signs Temperature 98.4 F 11/27/18 06:00 Pulse Rate 128 H 11/27/18 12:00 Respiratory Rate 14 11/27/18 15:25 Blood Pressure 105/77 11/27/18 12:00 O2 Sat by Pulse Oximetry (%) 100 11/27/18 13:25 Constitutional: Yes: Moderate Distress Eyes: Yes: Conjunctiva Clear HENT: Yes: Atraumatic Cardiovascular: Yes: Tachycardia, Pulse Irregular, S1, S2 Respiratory: Yes: On Nasal O2, Other (high flow) Gastrointestinal: Yes: Soft, Abdomen, Obese Genitourinary: Yes: Bills Present Musculoskeletal: Yes: Muscle Weakness Edema: Yes Edema: LUE: 1+, RUE: 1+, LLE: 2+, RLE: 2+ Integumentary: Yes: Venous Stasis Changes Neurological: Yes: Confusion Labs: CBC, BMP 11/27/18 05:30 11/27/18 05:30 INR, PTT INR 1.13 (0.83-1.09) H 11/23/18 16:40 - ....Imaging Chest X-ray: Report Reviewed Ultrasound: Report Reviewed Problem List - Problems (1) Hyperkalemia Code(s): E87.5 - HYPERKALEMIA (2) Acute on chronic respiratory failure with hypoxia and hypercapnia Code(s): J96.21 - ACUTE AND CHRONIC RESPIRATORY FAILURE WITH HYPOXIA; J96.22 - ACUTE AND CHRONIC RESPIRATORY FAILURE WITH HYPERCAPNIA (3) Acute renal failure Code(s): N17.9 - ACUTE KIDNEY FAILURE, UNSPECIFIED (4) Alcoholism Code(s): F10.20 - ALCOHOL DEPENDENCE, UNCOMPLICATED (5) Atrial flutter Code(s): I48.92 - UNSPECIFIED ATRIAL FLUTTER (6) Bilateral lower extremity edema Code(s): R60.0 - LOCALIZED EDEMA (7) COPD exacerbation Code(s): J44.1 - CHRONIC OBSTRUCTIVE PULMONARY DISEASE W (ACUTE) EXACERBATION Assessment/Plan Current Medications Generic Name Dose Route Start Last Admin Trade Name Freq PRN Reason Stop Dose Admin Albuterol/Ipratropium 1 amp 11/25/18 20:10 11/27/18 15:45 Duoneb - NEB 1 amp RQID [facility] Administration Apixaban 5 mg 11/24/18 10:00 11/27/18 10:21 Eliquis - PO 5 mg BID [facility] Administration Aspirin 81 mg 11/24/18 10:00 11/27/18 10:21 Asa - PO 81 mg DAILY [facility] Administration Budesonide/Formoterol Fumarate 1 puff 11/24/18 10:00 11/27/18 12:18 Symbicort 160/4.5mcg - IH Not Given DAILY [facility] Chlordiazepoxide HCl 10 mg 11/27/18 17:00 Librium - PO 11/28/18 11:01 [id number] [facility] Diltiazem HCl 30 mg 11/24/18 06:00 11/27/18 11:54 Cardizem - PO 30 mg Q6HPO [facility] Administration Diltiazem HCl 25 mg 11/25/18 18:47 Cardizem Injection - IVPUSH ONCE PRN HYPERTENSION Gabapentin 100 mg 11/24/18 10:00 11/27/18 10:21 Neurontin - PO 100 mg DAILY [facility] Administration Propofol 1,000,000 mcg in 100 mls @ 4.011 mls/hr 11/27/18 14:00 11/27/18 14: 25 Diprivan - IVPB 10 mcg/kg/min TITR [facility] 8.022 mls/hr Administration Protocol 5 MCG/KG/MIN Insulin Aspart 1 vial 11/24/18 11:00 11/27/18 14:50 Novolog Vial Sliding Scale - SQ 4 units ACHS [facility] Administration Protocol Insulin Detemir 10 units 11/24/18 22:00 11/26/18 22:44 Levemir Vial SQ 10 units HS [facility] Administration Lorazepam 1 mg 11/26/18 11:22 11/26/18 20:43 Ativan Injection - IVPUSH 1 mg Q6H PRN Administration WITHDRAWAL(CONT SUBST) Methylprednisolone Sodium Succinate 40 mg 11/28/18 10:00 Solu-Medrol - IVPUSH DAILY [facility] Multivitamins/Minerals/Vitamin C 1 tab 11/24/18 10:00 11/27/18 10:21 Tab-A-Vit - PO 1 tab DAILY [facility] Administration Pantoprazole Sodium 20 mg 11/24/18 11:30 11/27/18 10:21 Protonix - PO 20 mg DAILY [facility] Administration Thiamine HCl 200 mg 11/26/18 11:30 11/27/18 10:21 Vitamin B1 Injection - IVPB 200 mg DAILY [facility] Administration Impression 1. PITO 2. hyperkalemia 3. a-flutter 4. resp failure requiring bipap 5. DM 6. HTN 7. active smoker 8. etoh abuse 9. obesity 10. interstitial lung disease on CT scan 11. resp acidosis Plan - pts respiratory status deteriorating, pt will likely need intubation - discussed with ICU team - renal workup in progress - potassium to be treated medically - cardiology follow up and repeat echo - lasix as needed - may need HD if she continues to worsen - monitor urine output - follow urine eos - pt remains fluid overloaded - will follow closely
[2018-11-27] MEDS: chlordiazePOXIDE HCL 10 MG CAPSULE PO SCH ×2 (16:50→22:56)
[2018-11-27 18:23] LABS: ANION GAP 8 MMOL/L (8-16); CALCIUM 8.7 mg/dL (8.5-10.1); CHLORIDE 93 mmol/L (98-107); CO2 33 mmol/L (21-32); GLUCOSE,RANDOM 227 mg/dL (74-106); POTASSIUM 5.5 mmol/L (3.5-5.1); SODIUM 134 mmol/L (136-145)
[2018-11-27 18:32] LABS: ARTERIAL BLD GAS O2 SATURATION 92.1 % (90-98.9); ARTERIAL BLOOD GAS BASE EXCESS 1.4 meq/l (-2-2); ARTERIAL BLOOD GAS PO2 69.6 mmHg (80-100); ARTERIAL BLOOD GAS pH 7.27 (7.35-7.45)
[2018-11-27 18:41] LABS: BLOOD UREA NITROGEN 118 mg/dL (7-18)
[2018-11-27 18:42] LABS: ALLENS TEST POSITIVE
[2018-11-27] MEDS ORDERED: BISMUTH SUBSALICYLATE 262 MG/15 ML BTL PO ONE (18:42)
[2018-11-27 18:43] LABS: ARTERIAL BLOOD GAS PCO2 69.7 mmHg (35-45)
[2018-11-27] MEDS: INSULIN (LEVEMIR) 100 UNITS/ML UNITS SQ SCH (21:44)
[2018-11-27] MEDS ORDERED: chlordiazePOXIDE 5 MG CAPSULE ONE (22:50)
--- NOTE | 2018-11-28 02:20 | PN ---
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, Physician Chief Complaint: Pt lethargic; denies chest pain; dyspneic. History of Present Illness: 53 YO woman with h/o COPD (placed on steroid course 2 days ago without relief) acute/chronic alcoholism (several glasses of rum daily), long-term cigarette smoker, sleep apnea, morbid obesity, DM, HTN, hyperlipidemia, chronic erythema of LEs with hx cellulitis, metabolic syndrome, who p/w SOB and wheezing similar to her prior COPD exacerbation. She additionally notes awakening in the middle of the night last night with visual hallucinations. She additionally notes abdominal swelling recently, believes she has an abdominal infection but does not know what kind. Denies h/o heart arrhythmia. She has noticed her lips are more blue than normal. - Current Medication List Current Medications: Active Medications Albuterol/Ipratropium (Duoneb -) 1 amp NEB RQID [facility] Last Admin: 11/27/18 21:08 Dose: 1 amp Apixaban (Eliquis -) 5 mg PO BID [facility] Last Admin: 11/27/18 21:44 Dose: 5 mg Aspirin (Asa -) 81 mg PO DAILY [facility] Last Admin: 11/27/18 10:21 Dose: 81 mg Budesonide/Formoterol Fumarate (Symbicort 160/4.5mcg -) 1 puff IH DAILY [facility] Last Admin: 11/27/18 12:18 Dose: Not Given Chlordiazepoxide HCl (Librium -) 10 mg PO I3H-PPH [facility] Stop: 11/28/18 11:01 Last Admin: 11/27/18 22:56 Dose: 10 mg Diltiazem HCl (Cardizem -) 30 mg PO Q6HPO [facility] Last Admin: 11/27/18 22:59 Dose: 30 mg Diltiazem HCl (Cardizem Injection -) 25 mg IVPUSH ONCE PRN PRN Reason: HYPERTENSION Gabapentin (Neurontin -) 100 mg PO DAILY [facility] Last Admin: 11/27/18 10:21 Dose: 100 mg Propofol (Diprivan -) 1,000,000 mcg in 100 mls @ 4.011 mls/hr IVPB TITR [facility]; Protocol Last Titration: 11/27/18 15:45 Dose: 5 mcg/kg/min, 4.011 mls/hr Insulin Aspart (Novolog Vial Sliding Scale -) 1 vial SQ ACHS [facility]; Protocol Last Admin: 11/27/18 22:15 Dose: Not Given Insulin Detemir (Levemir Vial) 10 units SQ HS [facility] Last Admin: 11/27/18 21:44 Dose: 10 units Lorazepam (Ativan Injection -) 1 mg IVPUSH Q6H PRN PRN Reason: WITHDRAWAL(CONT SUBST) Last Admin: 11/26/18 20:43 Dose: 1 mg Methylprednisolone Sodium Succinate (Solu-Medrol -) 40 mg IVPUSH DAILY [facility] Multivitamins/Minerals/Vitamin C (Tab-A-Vit -) 1 tab PO DAILY [facility] Last Admin: 11/27/18 10:21 Dose: 1 tab Pantoprazole Sodium (Protonix -) 20 mg PO DAILY [facility] Last Admin: 11/27/18 10:21 Dose: 20 mg Thiamine HCl (Vitamin B1 Injection -) 200 mg IVPB DAILY [facility] Last Admin: 11/27/18 10:21 Dose: 200 mg - Objective Vital Signs: Vital Signs Temperature 97.6 F 11/28/18 02:14 Pulse Rate 137 H 11/28/18 02:14 Respiratory Rate 24 H 11/28/18 02:14 Blood Pressure 108/72 11/28/18 02:14 O2 Sat by Pulse Oximetry (%) 110 H 11/27/18 22:00 Constitutional: Yes: Mild Distress, Obese, Other (lethargy) Eyes: Yes: WNL HENT: Yes: WNL Cardiovascular: Yes: Tachycardia, Pulse Irregular, S1 (varies in intensity) Respiratory: Yes: Diminished, Rhonchi, SOB, Tachypnea Gastrointestinal: Yes: Soft, Abdomen, Obese ...Rectal Exam: Yes: Deferred Genitourinary: No: Anuria Musculoskeletal: Yes: Muscle Weakness Extremities: Yes: Cool Edema: Yes Edema: LLE: 1+, RLE: 1+ Peripheral Pulses WNL: No Peripheral Pulses: Left Doralis Pedis: 1+, Right Dorsalis Pedis: 1+ Integumentary: Yes: Erythema (bilateral LEs) Wound/Incision: Yes: Other (Left plantar ulcer) Psychiatric: Yes: Other Labs: CBC, BMP 11/27/18 05:30 11/27/18 16:50 INR, PTT INR 1.13 (0.83-1.09) H 11/23/18 16:40 Abnormal Lab Results 11/26/18 11/27/18 11/27/18 05:30 05:23 05:30 Hct 47.1 H MCV 103.7 H MCHC 31.4 L Absolute Neuts (auto) 8.1 H Neutrophils % 89.4 H Lymphocytes % 4.1 L D ABG pH 7.24 L* ABG pCO2 at Pt Temp 74.2 H* ABG pO2 at Pt Temp ABG HCO3 30.5 H ABG O2 Sat (Measured) Sodium Potassium Chloride Carbon Dioxide BUN Creatinine Random Glucose Calcium Phosphorus Magnesium Alkaline Phosphatase B-Natriuretic Peptide Albumin EVONNE Screen Positive H EVONNE Homogeneous Pattern 1:160 H Hep B Core Total Ab Positive H 11/27/18 11/27/18 11/27/18 05:30 12:22 15:25 Hct MCV MCHC Absolute Neuts (auto) Neutrophils % Lymphocytes % ABG pH 7.18 L* 7.16 L* ABG pCO2 at Pt Temp 91.6 H* D 93.6 H* ABG pO2 at Pt Temp 66.5 L ABG HCO3 32.4 H 32.1 H ABG O2 Sat (Measured) 87.8 L Sodium 131 L Potassium 5.5 H Chloride 92 L Carbon Dioxide BUN 108 H* Creatinine 2.8 H Random Glucose 249 H Calcium 8.1 L Phosphorus 8.2 H Magnesium 3.0 H Alkaline Phosphatase 125 H B-Natriuretic Peptide 2262.8 H Albumin 2.9 L EVONNE Screen EVONNE Homogeneous Pattern Hep B Core Total Ab 11/27/18 11/27/18 16:50 18:20 Hct MCV MCHC Absolute Neuts (auto) Neutrophils % Lymphocytes % ABG pH 7.27 L ABG pCO2 at Pt Temp 69.7 H* D ABG pO2 at Pt Temp 69.6 L ABG HCO3 30.6 H ABG O2 Sat (Measured) Sodium 134 L Potassium 5.5 H Chloride 93 L Carbon Dioxide 33 H BUN 118 H* Creatinine 3.0 H Random Glucose 227 H Calcium Phosphorus Magnesium Alkaline Phosphatase B-Natriuretic Peptide Albumin EVONNE Screen EVONNE Homogeneous Pattern Hep B Core Total Ab Problem List - Problems (1) Atrial flutter Assessment/Plan: On diltiazem for HR control (may need to change if LVEF is significantly reduced ). On apixaban for anticoagulation. ECHO: unable to assess LVEF; repeat when HR better-controlled (if still difficult to read, will get MUGA). CTA: no PE Code(s): I48.92 - UNSPECIFIED ATRIAL FLUTTER (2) Morbid obesity Code(s): E66.01 - MORBID (SEVERE) OBESITY DUE TO EXCESS CALORIES (3) Hyperlipidemia Code(s): E78.5 - HYPERLIPIDEMIA, UNSPECIFIED (4) HTN (hypertension) Assessment/Plan: On diltiazem. F/u ECHO for LVEF, wall thickness, chamber sizes, valve status (unable to assess LVEF initially; repeat ECHO, ideally when HR is better-controlled). Code(s): I10 - ESSENTIAL (PRIMARY) HYPERTENSION (5) Diabetes Code(s): E11.9 - TYPE 2 DIABETES MELLITUS WITHOUT COMPLICATIONS (6) [place] cardiac risk >20% in next 10 years Assessment/Plan: TNI negative x 2. BP and glucose control. Keep LDL cholesterol < 70 mg/dL. Smoking cessation. Dietary consult; weight loss. Exercise will be important in the future. Coronary artery evaluation when stable (stress MIBI and/or coronary angiogram). Code(s): Z91.89 - OTH PERSONAL RISK FACTORS, NOT ELSEWHERE CLASSIFIED (7) Elevated LFTs Assessment/Plan: resolved. Code(s): R94.5 - ABNORMAL RESULTS OF LIVER FUNCTION STUDIES (8) Cigarette nicotine dependence Assessment/Plan: The importance of stopping was discussed (pt's mother was in room; pt says she gets defensive, because her mother is always lecturing her). Code(s): F17.210 - NICOTINE DEPENDENCE, CIGARETTES, UNCOMPLICATED (9) Alcoholism Assessment/Plan: Detox protocol continues. Code(s): F10.20 - ALCOHOL DEPENDENCE, UNCOMPLICATED (10) Cellulitis Assessment/Plan: chronic erythema; now off antibiotics. Code(s): L03.90 - CELLULITIS, UNSPECIFIED (11) Sleep apnea Assessment/Plan: workup, if not already diagnosed. Code(s): G47.30 - SLEEP APNEA, UNSPECIFIED (12) Ascites Code(s): R18.8 - OTHER ASCITES (13) Interstitial lung disease Assessment/Plan: F/u with carpet installation specialist. Moderate pulmonary HTN and RV hypokinesis. R/o sarcoid. R/o sleep apnea. Code(s): J84.9 - INTERSTITIAL PULMONARY DISEASE, UNSPECIFIED (14) CHF (congestive heart failure) Assessment/Plan: Elevated BNP. F/u BUn/Cr, electrolytes, daily weight, IS and Os,. ECHO repeat for LVEF. Control of AF/flutter HR presently with diltiazem (will have to be changed if LVEF is significantly reduced). Code(s): I50.9 - HEART FAILURE, UNSPECIFIED (15) Hyperkalemia Assessment/Plan: treat per export agent; keep K+ level 4-4.5. Code(s): E87.5 - HYPERKALEMIA (16) Renal dysfunction Code(s): N28.9 - DISORDER OF KIDNEY AND URETER, UNSPECIFIED (17) Respiratory failure Assessment/Plan: worsening respiratory status, despite CXR showing no acute process. ISLD. Acute CHF. RV hypokinesis (moderate; with moderate pulmonary HTN). F/u with carpet installation specialist. Code(s): J96.90 - RESPIRATORY FAILURE, UNSP, UNSP W HYPOXIA OR HYPERCAPNIA
[2018-11-28] MEDS: chlordiazePOXIDE HCL 10 MG CAPSULE PO SCH ×2 (05:25→12:41)
[2018-11-28 05:48] LABS: BASO % 0.4 % (0-2.0); HEMATOCRIT 46.3 % (32.4-45.2); HEMOGLOBIN 14.6 GM/dL (10.7-15.3); MCH 32.3 pg (25.7-33.7); MCHC 31.5 g/dl (32.0-36.0); MEAN CELL VOLUME 102.6 fl (80-96); MONO % 7.8 % (3.8-10.2); NEUT % 86.8 % (42.8-82.8); PLATELET COUNT 140 K/MM3 (134-434); RBC 4.51 M/mm3 (3.60-5.2); RDW 15.3 % (11.6-15.6); WHITE BLOOD COUNT 12.9 K/mm3 (4.0-10.0)
[2018-11-28 06:34] LABS: ALBUMIN 2.7 g/dl (3.4-5.0); ALK PHOS 102 U/L (45-117); ANION GAP 10 MMOL/L (8-16); BILIRUBIN,TOTAL 0.4 mg/dL (0.2-1); CALCIUM 8.2 mg/dL (8.5-10.1); CHLORIDE 93 mmol/L (98-107); CO2 31 mmol/L (21-32); CREATININE 2.9 mg/dL (0.55-1.3); GLUCOSE,RANDOM 188 mg/dL (74-106); MAGNESIUM 3.4 mg/dL (1.8-2.4); N-TERMINAL BNP 2700.4 pg/ml (5-125); PHOSPHOROUS 7.8 mg/dL (2.5-4.9); POTASSIUM 5.6 mmol/L (3.5-5.1); SGOT/AST 15 U/L (15-37); SGPT/ALT 34 U/L (13-61); SODIUM 134 mmol/L (136-145); TOT PROT 5.8 g/dl (6.4-8.2)
[2018-11-28] MEDS ORDERED: chlordiazePOXIDE 5 MG CAPSULE ONE (06:37)
[2018-11-28] MEDS: INSULIN SLIDING SCALE (NOVOLOG) 1 VIAL SQ SCH ×4 (06:47→21:39)
[2018-11-28] MEDS: dilTIAZem HCL 30 MG TABLET (FP) PO SCH ×3 (06:47→17:44)
[2018-11-28 06:49] LABS: BLOOD UREA NITROGEN 124 mg/dL (7-18)
[2018-11-28 07:02] LABS: ARTERIAL BLD GAS O2 SATURATION 93.5 % (90-98.9); ARTERIAL BLOOD GAS BASE EXCESS 3.6 meq/l (-2-2); ARTERIAL BLOOD GAS PO2 75.8 mmHg (80-100); ARTERIAL BLOOD GAS pH 7.32 (7.35-7.45)
[2018-11-28 07:04] LABS: ALLENS TEST POSITIVE
[2018-11-28 07:08] LABS: ARTERIAL BLOOD GAS PCO2 63.5 mmHg (35-45)
[2018-11-28] MEDS ORDERED: SODIUM POLYSTYRENE SULFONATE 15 GM/60 ML BOTTLE PO ONE ×2 (07:14→19:56)
--- NOTE | 2018-11-28 07:25 | PN ---
Physical Exam: SUBJECTIVE: Patient seen and examined. Intubated/sedated OBJECTIVE: Vital Signs Period Temp Pulse Resp BP Sys/Gregorio Pulse Ox Last 24 Hr 97.6 F-98.4 F 91-137 14-26 97-113/65-88 89-110 GENERAL: Appears comfortable, sedated HEAD: NC/AT EYES: EVANGELISTA ENT: Moist mucous membranes. Cyanosis improving. ETT and OGT in place NECK: supple LUNGS: b/l coarse breath sounds throughout HEART: A-fib, normal rate, no murmur appreciated ABDOMEN: Soft, protuberant, edematous, mild distended, normoactive bowel sounds BUE: B/l hand swelling, not likely cellulitis, sensation and ROM intact. Cyanosis of distal digits LOWER EXTREMITIES: BLE erythema to knee; no fluctuance; 2+ pulses, warm, well- perfused. No calf tenderness. +1 peripheral edema NEUROLOGICAL: no focal deficit Active Medications Generic Name Dose Route Start Last Admin Trade Name Freq PRN Reason Stop Dose Admin Albuterol/Ipratropium 1 amp 11/25/18 20:10 11/27/18 21:08 Duoneb - NEB 1 amp RQID [facility] Administration Apixaban 5 mg 11/24/18 10:00 11/27/18 21:44 Eliquis - PO 5 mg BID [facility] Administration Aspirin 81 mg 11/24/18 10:00 11/27/18 10:21 Asa - PO 81 mg DAILY [facility] Administration Budesonide/Formoterol Fumarate 1 puff 11/24/18 10:00 11/27/18 12:18 Symbicort 160/4.5mcg - IH Not Given DAILY [facility] Chlordiazepoxide HCl 10 mg 11/27/18 17:00 11/28/18 05:25 Librium - PO 11/28/18 11:01 10 mg [id number] [facility] Administration Diltiazem HCl 30 mg 11/24/18 06:00 11/28/18 06:47 Cardizem - PO 30 mg Q6HPO [facility] Administration Gabapentin 100 mg 11/24/18 10:00 11/27/18 10:21 Neurontin - PO 100 mg DAILY [facility] Administration Propofol 1,000,000 mcg in 100 mls @ 4.011 mls/hr 11/27/18 14:00 11/28/18 04: 30 Diprivan - IVPB 10 mcg/kg/min TITR [facility] 8.022 mls/hr Titration Protocol 5 MCG/KG/MIN Insulin Aspart 1 vial 11/24/18 11:00 11/28/18 06:47 Novolog Vial Sliding Scale - SQ 4 units ACHS [facility] Administration Protocol Insulin Detemir 10 units 11/24/18 22:00 11/27/18 21:44 Levemir Vial SQ 10 units HS [facility] Administration Lorazepam 1 mg 11/26/18 11:22 11/26/18 20:43 Ativan Injection - IVPUSH 1 mg Q6H PRN Administration WITHDRAWAL(CONT SUBST) Methylprednisolone Sodium Succinate 40 mg 11/28/18 10:00 Solu-Medrol - IVPUSH DAILY [facility] Multivitamins/Minerals/Vitamin C 1 tab 11/24/18 10:00 11/27/18 10:21 Tab-A-Vit - PO 1 tab DAILY [facility] Administration Pantoprazole Sodium 20 mg 11/24/18 11:30 11/27/18 10:21 Protonix - PO 20 mg DAILY [facility] Administration Sodium Polystyrene Sulfonate 30 gm 11/28/18 07:14 Kayexalate - PO 11/28/18 07:15 ONCE ONE Thiamine HCl 200 mg 11/26/18 11:30 11/27/18 10:21 Vitamin B1 Injection - IVPB 200 mg DAILY [facility] Administration ASSESSMENT/PLAN: The pt is a 53F with a PMH of COPD, acute/chronic EtOH abuse (several glasses of rum daily), long-term tobacco abuse, TRINH, morbid obesity, DM, HTN, hyperlipidemia, cellulites, metabolic syndrome who was transferred to ICU due to worsening respiratory failure 11/27 - Patient w/ worsening mentation and respiratory status throughout the morning. Worsening repeat ABG. Decision was made to intubate for hypercapnic/ hypoxic respiratory failure 11/28 - Vented, ABG improving Neuro Sedation -Propofol ETOH abuse , dependence -Ativan 2mg IV PRN for withdrawal symptoms Tobacco abuse -Educated -Nicotine patch CV Cardiology Dr Ronny Caceres -Cont ASA , Apixaban -Cardizim 25 IV push PRN HTN -Hold lisinopril due to worsening kidney function , resume Hypervolemia w/ pulmonary congestion -Lasix 40mg IV once 11/27 Pulm Acute hypercapnic respiratory failure due to pulmonary edema can Not R/O CHF vs copd exacerbation ILD new diagnosed on CT -Repeat ECHO pending --Previous unable to evaluate R heart function -Steroids decreased to 40mg IV daily -Continue symbicort -Continue broncodilators -s/p intubation 11/27/2018 for acute decompensation GI Nutrition -NPO -Will start TF tomorrow GI Ppx -Protonix 40 PO daily PITO -IVF held 2/2 respiratory edema/volume overload -Avoid nephrotoxic agents -Nephrology consulted Hyperkalemia -Kayexalate 30mg PO once Heme DVT Ppx: scds , Apixaban , ASA ID BLE Cellulitis -Cont abx Ceftriaxone 2 gm daily -ID consulted Endo DM -BGM ACHS -ISS -Levemir 10 units HS Morbid obesity -Educated about low calories diet , losing weight , daily exercise LTD ETT- 11/27/2018 OGT- 11/27/2018 Bills- 11/25/2018 Dispo: Patient continues to require ICU level of care. Visit type - Emergency Visit Emergency Visit: Yes ED Registration Date: 11/23/18 Care time: The patient presented to the Emergency Department on the above date and was hospitalized for further evaluation of their emergent condition. - New Patient This patient is new to me today: No - Critical Care Critical Care patient: Yes Total Critical Care Time (in minutes): 35 Critical Care Statement: The care of this patient involved high complexity decision making to prevent further life threatening deterioration of the patient 's condition and/or to evaluate & treat vital organ system(s) failure or risk of failure.
[2018-11-28] MEDS: ALBUTEROL SO4 2.5/IPRATROPIUM 0.5 INH SOL 3 ML VIAL.NEB. NEB SCH ×4 (08:34→20:45)
[2018-11-28] MEDS ORDERED: PT OWN MED DRAWER 7, Y5N ONE (09:01)
[2018-11-28] MEDS ORDERED: SODIUM POLYSTYRENE SULFONATE 15 GM/60 ML BOTTLE ONE (09:02)
[2018-11-28] MEDS: BUDESONIDE/FORMETEROL FUMARATE 160/4.5 mcg INHALER IH SCH (09:05)
[2018-11-28] MEDS: methylPREDNISolone NA SUCC 40 MG/1 ML VIAL IVPUSH SCH (09:05)
[2018-11-28] MEDS: THIAMINE HCL 200 MG/2 ML VIAL IVPB SCH (09:06)
[2018-11-28] MEDS: APIXABAN 5 MG TABLET PO SCH ×2 (09:06→21:38)
[2018-11-28] MEDS: MULTIVITAMINS (DAILY MVI) TABLET (FP) PO SCH (09:06)
[2018-11-28] MEDS: PANTOPRAZOLE 20 MG TABLET (FP) PO SCH (09:06)
[2018-11-28] MEDS: GABAPENTIN 100 MG CAPSULE (FP) PO SCH (09:06)
[2018-11-28] MEDS: ASPIRIN 81 MG CHEWABLE TABLETS PO SCH (09:06)
--- NOTE | 2018-11-28 10:01 | ECHO ---
Name: MELECIO MALLORY Exam:Adult Echocardiogram Study Date: 11/28/2018 08:51 AM Age: 53 yrs Reason For Study: A-Fib Height: 68 in Weight: 275 lb BSA: 2.3 m2 BP: 101/60 mmHg MMode/2D Measurements & Calculations IVSd: 0.98 cm Ao root diam: 2.7 cm LVIDd: 4.5 cm LA dimension: 3.1 cm LVIDs: 3.6 cm LVPWd: 1.1 cm EDV(Teich): 90.8 ml LAV (MOD-bp): 53.8 ml ESV(Teich): 55.3 ml Doppler Measurements & Calculations MR max obed: 275.5 cm/sec TR max obed: 272.4 cm/sec MR max P.9 mmHg TR max P.7 mmHg Med Peak E' Obed: 9.2 cm/sec Lat Peak E' Obed: 13.2 cm/sec Procedure The study was technically difficult with many images being suboptimal in quality. Left Ventricle Due to the poor quality of the echocardiogram, an assessment of left ventricular ejection fraction ca nnot be made. Regional wall motion abnormalities cannot be excluded due to limited visualization. Right Ventricle The right ventricle is not well visualized. Atria The left atrium is mildly dilated. Mitral Valve The mitral valve is not well visualized. There is mild mitral regurgitation. Tricuspid Valve The tricuspid valve is not well visualized, but is grossly normal. There is mild tricuspid regurgitat ion. Aortic Valve The aortic valve is not well visualized. Pulmonic Valve The pulmonic valve is not well visualized. Pericardium/Pleura There is no pericardial effusion. Interpretation Summary The study was technically difficult with many images being suboptimal in quality. Regional wall motion abnormalities cannot be excluded due to limited visualization. Due to the poor quality of the echocardiogram, an assessment of left ventricular ejection fraction ca nnot be made. The left atrium is mildly dilated. There is mild mitral regurgitation. There is mild tricuspid regurgitation. The aortic valve is not well visualized. There is no pericardial effusion. MD Andrea *Ruth 11/28/2018 10:00 AM
[2018-11-28 10:12] LABS: ANTIGLOMERULAR BASEMENT MEN.AB 3 units (0-20)
--- NOTE | 2018-11-28 10:34 | PN ---
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, Physician - Current Medication List Current Medications: Active Medications Albuterol/Ipratropium (Duoneb -) 1 amp NEB RQID [facility] Last Admin: 11/27/18 21:08 Dose: 1 amp Apixaban (Eliquis -) 5 mg PO BID [facility] Last Admin: 11/28/18 09:06 Dose: 5 mg Aspirin (Asa -) 81 mg PO DAILY [facility] Last Admin: 11/28/18 09:06 Dose: 81 mg Budesonide/Formoterol Fumarate (Symbicort 160/4.5mcg -) 1 puff IH DAILY [facility] Last Admin: 11/28/18 09:05 Dose: Not Given Chlordiazepoxide HCl (Librium -) 10 mg PO F5M-MMM [facility] Stop: 11/28/18 11:01 Last Admin: 11/28/18 05:25 Dose: 10 mg Diltiazem HCl (Cardizem -) 30 mg PO Q6HPO [facility] Last Admin: 11/28/18 06:47 Dose: 30 mg Gabapentin (Neurontin -) 100 mg PO DAILY [facility] Last Admin: 11/28/18 09:06 Dose: 100 mg Propofol (Diprivan -) 1,000,000 mcg in 100 mls @ 4.011 mls/hr IVPB TITR [facility]; Protocol Last Titration: 11/28/18 04:30 Dose: 10 mcg/kg/min, 8.022 mls/hr Insulin Aspart (Novolog Vial Sliding Scale -) 1 vial SQ ACHS [facility]; Protocol Last Admin: 11/28/18 06:47 Dose: 4 units Insulin Detemir (Levemir Vial) 10 units SQ HS [facility] Last Admin: 11/27/18 21:44 Dose: 10 units Lorazepam (Ativan Injection -) 1 mg IVPUSH Q6H PRN PRN Reason: WITHDRAWAL(CONT SUBST) Last Admin: 11/26/18 20:43 Dose: 1 mg Methylprednisolone Sodium Succinate (Solu-Medrol -) 40 mg IVPUSH DAILY [facility] Last Admin: 11/28/18 09:05 Dose: 40 mg Multivitamins/Minerals/Vitamin C (Tab-A-Vit -) 1 tab PO DAILY [facility] Last Admin: 11/28/18 09:06 Dose: 1 tab Pantoprazole Sodium (Protonix -) 20 mg PO DAILY [facility] Last Admin: 11/28/18 09:06 Dose: 20 mg Thiamine HCl (Vitamin B1 Injection -) 200 mg IVPB DAILY [facility] Last Admin: 11/28/18 09:06 Dose: 200 mg - Objective Vital Signs: Vital Signs Temperature 98.4 F 11/28/18 06:00 Pulse Rate 104 H 11/28/18 06:00 Respiratory Rate 24 H 11/28/18 08:53 Blood Pressure 113/84 11/28/18 06:00 O2 Sat by Pulse Oximetry (%) 110 H 11/27/18 22:00 Labs: CBC, BMP 11/28/18 05:15 11/28/18 05:15 INR, PTT INR 1.13 (0.83-1.09) H 11/23/18 16:40 Problem List - Problems (1) Atrial flutter Code(s): I48.92 - UNSPECIFIED ATRIAL FLUTTER (2) Morbid obesity Code(s): E66.01 - MORBID (SEVERE) OBESITY DUE TO EXCESS CALORIES (3) Hyperlipidemia Code(s): E78.5 - HYPERLIPIDEMIA, UNSPECIFIED (4) HTN (hypertension) Code(s): I10 - ESSENTIAL (PRIMARY) HYPERTENSION (5) Diabetes Code(s): E11.9 - TYPE 2 DIABETES MELLITUS WITHOUT COMPLICATIONS (6) [place] cardiac risk >20% in next 10 years Code(s): Z91.89 - OTH PERSONAL RISK FACTORS, NOT ELSEWHERE CLASSIFIED (7) Elevated LFTs Code(s): R94.5 - ABNORMAL RESULTS OF LIVER FUNCTION STUDIES (8) Cigarette nicotine dependence Code(s): F17.210 - NICOTINE DEPENDENCE, CIGARETTES, UNCOMPLICATED (9) Alcoholism Code(s): F10.20 - ALCOHOL DEPENDENCE, UNCOMPLICATED (10) Cellulitis Code(s): L03.90 - CELLULITIS, UNSPECIFIED (11) Sleep apnea Code(s): G47.30 - SLEEP APNEA, UNSPECIFIED (12) Ascites Code(s): R18.8 - OTHER ASCITES (13) Interstitial lung disease Code(s): J84.9 - INTERSTITIAL PULMONARY DISEASE, UNSPECIFIED (14) CHF (congestive heart failure) Code(s): I50.9 - HEART FAILURE, UNSPECIFIED (15) Hyperkalemia Code(s): E87.5 - HYPERKALEMIA (16) Renal dysfunction Code(s): N28.9 - DISORDER OF KIDNEY AND URETER, UNSPECIFIED (17) Respiratory failure Code(s): J96.90 - RESPIRATORY FAILURE, UNSP, UNSP W HYPOXIA OR HYPERCAPNIA
--- NOTE | 2018-11-28 10:40 | PN ---
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, Physician Chief Complaint: Pt is intubated; sedated. History of Present Illness: 53 YO white woman with h/o COPD (placed on steroid course 2 days ago without relief) acute/chronic alcoholism (several glasses of rum daily), long-term cigarette smoker, sleep apnea, morbid obesity, DM, HTN, hyperlipidemia, chronic erythema of LEs with hx cellulitis, metabolic syndrome, who p/w SOB and wheezing similar to her prior COPD exacerbation. She additionally notes awakening in the middle of the night last night with visual hallucinations. She additionally notes abdominal swelling recently, believes she has an abdominal infection but does not know what kind. Denies h/o heart arrhythmia. She has noticed her lips are more blue than normal. - Current Medication List Current Medications: Active Medications Albuterol/Ipratropium (Duoneb -) 1 amp NEB RQID [facility] Last Admin: 11/27/18 21:08 Dose: 1 amp Apixaban (Eliquis -) 5 mg PO BID [facility] Last Admin: 11/28/18 09:06 Dose: 5 mg Aspirin (Asa -) 81 mg PO DAILY [facility] Last Admin: 11/28/18 09:06 Dose: 81 mg Budesonide/Formoterol Fumarate (Symbicort 160/4.5mcg -) 1 puff IH DAILY [facility] Last Admin: 11/28/18 09:05 Dose: Not Given Chlordiazepoxide HCl (Librium -) 10 mg PO [id number] [facility] Stop: 11/28/18 11:01 Last Admin: 11/28/18 05:25 Dose: 10 mg Diltiazem HCl (Cardizem -) 30 mg PO Q6HPO [facility] Last Admin: 11/28/18 06:47 Dose: 30 mg Gabapentin (Neurontin -) 100 mg PO DAILY [facility] Last Admin: 11/28/18 09:06 Dose: 100 mg Propofol (Diprivan -) 1,000,000 mcg in 100 mls @ 4.011 mls/hr IVPB TITR [facility]; Protocol Last Titration: 11/28/18 04:30 Dose: 10 mcg/kg/min, 8.022 mls/hr Insulin Aspart (Novolog Vial Sliding Scale -) 1 vial SQ ACHS [facility]; Protocol Last Admin: 11/28/18 06:47 Dose: 4 units Insulin Detemir (Levemir Vial) 10 units SQ HS [facility] Last Admin: 11/27/18 21:44 Dose: 10 units Lorazepam (Ativan Injection -) 1 mg IVPUSH Q6H PRN PRN Reason: WITHDRAWAL(CONT SUBST) Last Admin: 11/26/18 20:43 Dose: 1 mg Methylprednisolone Sodium Succinate (Solu-Medrol -) 40 mg IVPUSH DAILY [facility] Last Admin: 11/28/18 09:05 Dose: 40 mg Multivitamins/Minerals/Vitamin C (Tab-A-Vit -) 1 tab PO DAILY [facility] Last Admin: 11/28/18 09:06 Dose: 1 tab Pantoprazole Sodium (Protonix -) 20 mg PO DAILY [facility] Last Admin: 11/28/18 09:06 Dose: 20 mg Thiamine HCl (Vitamin B1 Injection -) 200 mg IVPB DAILY [facility] Last Admin: 11/28/18 09:06 Dose: 200 mg - Objective Vital Signs: Vital Signs Temperature 98.4 F 11/28/18 06:00 Pulse Rate 104 H 11/28/18 06:00 Respiratory Rate 24 H 11/28/18 08:53 Blood Pressure 113/84 11/28/18 06:00 O2 Sat by Pulse Oximetry (%) 110 H 11/27/18 22:00 Constitutional: Yes: Other Eyes: Yes: WNL HENT: Yes: WNL Neck: Yes: Decreased ROM Cardiovascular: Yes: Tachycardia, Pulse Irregular Respiratory: Yes: Intubated, Mechanically Ventilated Gastrointestinal: Yes: Soft Genitourinary: No: Anuria Extremities: Yes: Cool Integumentary: Yes: Erythema Neurological: Yes: Weakness Psychiatric: Yes: Other Labs: CBC, BMP 11/28/18 05:15 11/28/18 05:15 INR, PTT INR 1.13 (0.83-1.09) H 11/23/18 16:40 - ....Imaging Other: Image Reviewed (telemetry: atrial flutter) Problem List - Problems (1) Atrial flutter Assessment/Plan: On diltiazem for HR control (may need to change if LVEF is significantly reduced ). On apixaban for anticoagulation. ECHO: unable to assess LVEF; to repeat today. CTA: no PE Code(s): I48.92 - UNSPECIFIED ATRIAL FLUTTER (2) Morbid obesity Code(s): E66.01 - MORBID (SEVERE) OBESITY DUE TO EXCESS CALORIES (3) Hyperlipidemia Assessment/Plan: elevated LDL cholesterol. Start statin (LFTs now normal); keep LDL cholesterol < 70 mg/dL. Code(s): E78.5 - HYPERLIPIDEMIA, UNSPECIFIED (4) HTN (hypertension) Assessment/Plan: On diltiazem. F/u ECHO for LVEF, wall thickness, chamber sizes, valve status (unable to assess LVEF initially; repeat ECHO today). Code(s): I10 - ESSENTIAL (PRIMARY) HYPERTENSION (5) Diabetes Code(s): E11.9 - TYPE 2 DIABETES MELLITUS WITHOUT COMPLICATIONS (6) [place] cardiac risk >20% in next 10 years Assessment/Plan: TNI negative x 2. BP and glucose control. Keep LDL cholesterol < 70 mg/dL. Smoking cessation. Dietary consult; weight loss. Exercise will be important in the future. Coronary artery evaluation when stable (stress MIBI and/or coronary angiogram). Code(s): Z91.89 - OTH PERSONAL RISK FACTORS, NOT ELSEWHERE CLASSIFIED (7) Elevated LFTs Assessment/Plan: resolved. Code(s): R94.5 - ABNORMAL RESULTS OF LIVER FUNCTION STUDIES (8) Cigarette nicotine dependence Assessment/Plan: The importance of stopping was discussed (pt's mother was in room; pt says she gets defensive, because her mother is always lecturing her). Code(s): F17.210 - NICOTINE DEPENDENCE, CIGARETTES, UNCOMPLICATED (9) Alcoholism Assessment/Plan: Detox protocol continues. Code(s): F10.20 - ALCOHOL DEPENDENCE, UNCOMPLICATED (10) Cellulitis Assessment/Plan: chronic erythema; now off antibiotics. Code(s): L03.90 - CELLULITIS, UNSPECIFIED (11) Sleep apnea Assessment/Plan: workup, if not already diagnosed. Code(s): G47.30 - SLEEP APNEA, UNSPECIFIED (12) Ascites Code(s): R18.8 - OTHER ASCITES (13) Interstitial lung disease Code(s): J84.9 - INTERSTITIAL PULMONARY DISEASE, UNSPECIFIED (14) CHF (congestive heart failure) Code(s): I50.9 - HEART FAILURE, UNSPECIFIED (15) Hyperkalemia Code(s): E87.5 - HYPERKALEMIA (16) Renal dysfunction Code(s): N28.9 - DISORDER OF KIDNEY AND URETER, UNSPECIFIED (17) Respiratory failure Code(s): J96.90 - RESPIRATORY FAILURE, UNSP, UNSP W HYPOXIA OR HYPERCAPNIA Assessment/Plan CCU time spent: 35 minutes.
--- NOTE | 2018-11-28 11:43 | PN ---
Teaching Attending Note Name of Resident: Heriberto Urena ATTENDING PHYSICIAN STATEMENT I saw and evaluated the patient. I reviewed the resident's note and discussed the case with the resident. I agree with the resident's findings and plan as documented. SUBJECTIVE: Patient seen and examined in the ICU. Intubated and sedated. AC Mode of vent, 40% FiO2. CXR: slightly increased vascular markings OBJECTIVE: Intake & Output 11/25/18 11/26/18 11/27/18 11/28/18 23:59 23:59 23:59 23:59 Intake Total 200 260 125 55 Output Total 200 500 Balance 0 260 -375 55 Weight 294 lb 12.128 oz 294 lb 12 oz 295 lb 13.765 oz 275 lb 3.2 oz Last Vital Signs Temp Pulse Resp BP Pulse Ox 98.4 F 104 H 24 H 113/84 110 H 11/28/18 06:00 11/28/18 06:00 11/28/18 08:53 11/28/18 06:00 11/27/18 22:00 Active Medications Albuterol/Ipratropium (Duoneb -) 1 amp NEB RQID [facility] Last Admin: 11/28/18 11:33 Dose: 1 amp Apixaban (Eliquis -) 5 mg PO BID [facility] Last Admin: 11/28/18 09:06 Dose: 5 mg Aspirin (Asa -) 81 mg PO DAILY [facility] Last Admin: 11/28/18 09:06 Dose: 81 mg Budesonide/Formoterol Fumarate (Symbicort 160/4.5mcg -) 1 puff IH DAILY [facility] Last Admin: 11/28/18 09:05 Dose: Not Given Diltiazem HCl (Cardizem -) 30 mg PO Q6HPO [facility] Last Admin: 11/28/18 06:47 Dose: 30 mg Gabapentin (Neurontin -) 100 mg PO DAILY [facility] Last Admin: 11/28/18 09:06 Dose: 100 mg Propofol (Diprivan -) 1,000,000 mcg in 100 mls @ 4.011 mls/hr IVPB TITR [facility]; Protocol Last Titration: 11/28/18 04:30 Dose: 10 mcg/kg/min, 8.022 mls/hr Insulin Aspart (Novolog Vial Sliding Scale -) 1 vial SQ ACHS [facility]; Protocol Last Admin: 11/28/18 06:47 Dose: 4 units Insulin Detemir (Levemir Vial) 10 units SQ HS [facility] Last Admin: 11/27/18 21:44 Dose: 10 units Lorazepam (Ativan Injection -) 1 mg IVPUSH Q6H PRN PRN Reason: WITHDRAWAL(CONT SUBST) Last Admin: 11/26/18 20:43 Dose: 1 mg Methylprednisolone Sodium Succinate (Solu-Medrol -) 40 mg IVPUSH DAILY [facility] Last Admin: 11/28/18 09:05 Dose: 40 mg Multivitamins/Minerals/Vitamin C (Tab-A-Vit -) 1 tab PO DAILY [facility] Last Admin: 11/28/18 09:06 Dose: 1 tab Pantoprazole Sodium (Protonix -) 20 mg PO DAILY [facility] Last Admin: 11/28/18 09:06 Dose: 20 mg Thiamine HCl (Vitamin B1 Injection -) 200 mg IVPB DAILY [facility] Last Admin: 11/28/18 09:06 Dose: 200 mg Gen: lethargic, tachypneic Heart: RRR Lung: distant breath sounds Abd: soft, nontender Ext: + edema Laboratory Results - last 24 hr 11/25/18 11/26/18 11/27/18 18:25 05:30 12:22 WBC RBC Hgb Hct MCV MCH MCHC RDW Plt Count MPV Absolute Neuts (auto) Neutrophils % Lymphocytes % Monocytes % Eosinophils % Basophils % Nucleated RBC % Anticoagulation Therapy Puncture Site Right radial ABG pH 7.18 L* ABG pCO2 at Pt Temp 91.6 H* D ABG pO2 at Pt Temp 66.5 L ABG HCO3 32.4 H ABG O2 Sat (Measured) 87.8 L ABG O2 Content 19.3 ABG Base Excess 0.2 Mendoza Test Positive O2 Delivery Device Oxygen Flow Rate Yes Vent Mode Vent Rate Mechanical Rate PEEP Pressure Support Vent Sodium Potassium Chloride Carbon Dioxide Anion Gap BUN Creatinine Creat Clearance w eGFR POC Glucometer Random Glucose Calcium Phosphorus Magnesium Total Bilirubin AST ALT Alkaline Phosphatase B-Natriuretic Peptide Total Protein Albumin Urine Eosinophils None seen EVONNE Screen Positive H EVONNE Homogeneous Pattern 1:160 H EVONNE Nucleolar Pattern TNP EVONNE Spindle Ruiz Pattern TNP EVONNE Midbody Pattern TNP EVONNE Centriole Pattern TNP EVONNE Nuclear Dot Pattern TNP EVONNE PCNA Pattern TNP EVONNE Nuclear Membr Pat TNP EVONNE Speckled Pattern TNP EVONNE Centromere Pattern TNP Double Strand DNA Ab <1 Glomerular Base Memb Ab 3 Hepatitis A Ab Total Negative Hep Bs Antigen Negative Hep Bs Antibody Reactive Hep B Core Total Ab Positive H 11/27/18 11/27/18 11/27/18 14:46 15:25 16:32 WBC RBC Hgb Hct MCV MCH MCHC RDW Plt Count MPV Absolute Neuts (auto) Neutrophils % Lymphocytes % Monocytes % Eosinophils % Basophils % Nucleated RBC % Anticoagulation Therapy Puncture Site Right radial ABG pH 7.16 L* ABG pCO2 at Pt Temp 93.6 H* ABG pO2 at Pt Temp 85.0 D ABG HCO3 32.1 H ABG O2 Sat (Measured) 93.9 ABG O2 Content 21.2 ABG Base Excess -0.6 Mendoza Test Positive O2 Delivery Device Mech Oxygen Flow Rate 50 Vent Mode A/c Vent Rate 14 Mechanical Rate PEEP 5.0 Pressure Support Vent 400 Sodium Potassium Chloride Carbon Dioxide Anion Gap BUN Creatinine Creat Clearance w eGFR POC Glucometer [phone] Random Glucose Calcium Phosphorus Magnesium Total Bilirubin AST ALT Alkaline Phosphatase B-Natriuretic Peptide Total Protein Albumin Urine Eosinophils EVONNE Screen EVONNE Homogeneous Pattern EVONNE Nucleolar Pattern EVONNE Spindle Ruiz Pattern EVONNE Midbody Pattern EVONNE Centriole Pattern EVONNE Nuclear Dot Pattern EVONNE PCNA Pattern EVONNE Nuclear Membr Pat EVONNE Speckled Pattern EVONNE Centromere Pattern Double Strand DNA Ab Glomerular Base Memb Ab Hepatitis A Ab Total Hep Bs Antigen Hep Bs Antibody Hep B Core Total Ab 11/27/18 11/27/18 11/27/18 16:50 18:20 21:44 WBC RBC Hgb Hct MCV MCH MCHC RDW Plt Count MPV Absolute Neuts (auto) Neutrophils % Lymphocytes % Monocytes % Eosinophils % Basophils % Nucleated RBC % Anticoagulation Therapy Puncture Site Right radial ABG pH 7.27 L ABG pCO2 at Pt Temp 69.7 H* D ABG pO2 at Pt Temp 69.6 L ABG HCO3 30.6 H ABG O2 Sat (Measured) 92.1 ABG O2 Content 20.5 ABG Base Excess 1.4 Mendoza Test Positive O2 Delivery Device Mech vent Oxygen Flow Rate 40% Vent Mode A/c Vent Rate 24 Mechanical Rate PEEP 5.0 Pressure Support Vent 400 Sodium 134 L Potassium 5.5 H Chloride 93 L Carbon Dioxide 33 H Anion Gap 8 BUN 118 H* Creatinine 3.0 H Creat Clearance w eGFR 16.26 POC Glucometer [phone] Random Glucose 227 H Calcium 8.7 Phosphorus Magnesium Total Bilirubin AST ALT Alkaline Phosphatase B-Natriuretic Peptide Total Protein Albumin Urine Eosinophils EVONNE Screen EVONNE Homogeneous Pattern EVONNE Nucleolar Pattern EVONNE Spindle Ruiz Pattern EVONNE Midbody Pattern EVONNE Centriole Pattern EVONNE Nuclear Dot Pattern EVONNE PCNA Pattern EVONNE Nuclear Membr Pat EVONNE Speckled Pattern EVONNE Centromere Pattern Double Strand DNA Ab Glomerular Base Memb Ab Hepatitis A Ab Total Hep Bs Antigen Hep Bs Antibody Hep B Core Total Ab 11/28/18 11/28/18 11/28/18 05:15 05:15 05:23 WBC 12.9 H RBC 4.51 Hgb 14.6 Hct 46.3 H MCV 102.6 H MCH 32.3 MCHC 31.5 L RDW 15.3 Plt Count 140 MPV 9.0 Absolute Neuts (auto) 11.2 H Neutrophils % 86.8 H Lymphocytes % 5.0 L D Monocytes % 7.8 Eosinophils % 0.0 Basophils % 0.4 Nucleated RBC % 0 Anticoagulation Therapy Puncture Site ABG pH ABG pCO2 at Pt Temp ABG pO2 at Pt Temp ABG HCO3 ABG O2 Sat (Measured) ABG O2 Content ABG Base Excess Mendoza Test O2 Delivery Device Oxygen Flow Rate Vent Mode Vent Rate Mechanical Rate PEEP Pressure Support Vent Sodium 134 L Potassium 5.6 H Chloride 93 L Carbon Dioxide 31 Anion Gap 10 BUN 124 H* Creatinine 2.9 H Creat Clearance w eGFR 16.91 POC Glucometer [phone] Random Glucose 188 H Calcium 8.2 L Phosphorus 7.8 H Magnesium 3.4 H Total Bilirubin 0.4 AST 15 ALT 34 Alkaline Phosphatase 102 B-Natriuretic Peptide 2700.4 H Total Protein 5.8 L Albumin 2.7 L Urine Eosinophils EVONNE Screen EVONNE Homogeneous Pattern EVONNE Nucleolar Pattern EVONNE Spindle Ruiz Pattern EVONNE Midbody Pattern EVONNE Centriole Pattern EVONNE Nuclear Dot Pattern EVONNE PCNA Pattern EVONNE Nuclear Membr Pat EVONNE Speckled Pattern EVONNE Centromere Pattern Double Strand DNA Ab Glomerular Base Memb Ab Hepatitis A Ab Total Hep Bs Antigen Hep Bs Antibody Hep B Core Total Ab 11/28/18 06:40 WBC RBC Hgb Hct MCV MCH MCHC RDW Plt Count MPV Absolute Neuts (auto) Neutrophils % Lymphocytes % Monocytes % Eosinophils % Basophils % Nucleated RBC % Anticoagulation Therapy No Result Required. Puncture Site Right radial ABG pH 7.32 L ABG pCO2 at Pt Temp 63.5 H* ABG pO2 at Pt Temp 75.8 L ABG HCO3 31.6 H ABG O2 Sat (Measured) 93.5 ABG O2 Content 20.9 ABG Base Excess 3.6 H Mendoza Test Positive O2 Delivery Device Vent settings Oxygen Flow Rate 40% Vent Mode Al Vent Rate No Result Required. Mechanical Rate No Result Required. PEEP 5.0 Pressure Support Vent 400 Sodium Potassium Chloride Carbon Dioxide Anion Gap BUN Creatinine Creat Clearance w eGFR POC Glucometer Random Glucose Calcium Phosphorus Magnesium Total Bilirubin AST ALT Alkaline Phosphatase B-Natriuretic Peptide Total Protein Albumin Urine Eosinophils EVONNE Screen EVONNE Homogeneous Pattern EVONNE Nucleolar Pattern EVONNE Spindle Ruiz Pattern EVONNE Midbody Pattern EVONNE Centriole Pattern EVONNE Nuclear Dot Pattern EVONNE PCNA Pattern EVONNE Nuclear Membr Pat EVONNE Speckled Pattern EVONNE Centromere Pattern Double Strand DNA Ab Glomerular Base Memb Ab Hepatitis A Ab Total Hep Bs Antigen Hep Bs Antibody Hep B Core Total Ab ASSESSMENT AND PLAN: Acute on Chronic Hypoxic and Hypercapneic Respiratory Failure Acute COPD Exacerbation Morbid Obesity Obstructive Sleep Apnea/Obesity Hypoventilation Syndrome Suspect Right Heart Failure Volume Overload Mediastinal Lymphadenopathy Atrial Flutter with RVR Cellulitis Acute Kidney Injury Alcohol Abuse - Current vent settings - Taper medrol - Inhaled bronchodilators - Titrate Fio2 to keep Spo2 88-92% - Daily assessment for Lasix - ABX - monitor urine output, creatinine - Rate control - Continue anticoagulation - Outpatient f/u of mediastinal lymphadenopathy - continue ICU monitoring for tenuous respiratory status Dr Dixon Critical care time spent in reviewing chart, evaluating patient and formulating plan 35 min
--- NOTE | 2018-11-28 12:59 | PN ---
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 (short form) - Note 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: Pt seen/ examined in icu Events noted/ chart reviewed Intubated/ sedated family at bedside Vital Signs Temp 98.4 F 11/28/18 06:00 Pulse 135 H 11/28/18 12:36 Resp 24 H 11/28/18 12:36 BP 116/84 11/28/18 12:36 Pulse Ox 94 L 11/28/18 10:00 Intake & Output 11/27/18 11/28/18 11/28/18 23:59 11:59 23:59 Intake Total 125 55 Balance 125 55 Weight 275 lb 3.2 oz Intake: IV 25 55 left forearm 55 saline lock# 2 25 Tube Irrigant 100 Other: Voiding Method Indwelling Catheter Indwelling Catheter Bowel Movement No No Weight Measurement Method Built in [facility] Active Medications Albuterol/Ipratropium (Duoneb -) 1 amp NEB RQID [facility] Last Admin: 11/28/18 11:33 Dose: 1 amp Apixaban (Eliquis -) 5 mg PO BID [facility] Last Admin: 11/28/18 09:06 Dose: 5 mg Aspirin (Asa -) 81 mg PO DAILY [facility] Last Admin: 11/28/18 09:06 Dose: 81 mg Budesonide/Formoterol Fumarate (Symbicort 160/4.5mcg -) 1 puff IH DAILY [facility] Last Admin: 11/28/18 09:05 Dose: Not Given Diltiazem HCl (Cardizem -) 30 mg PO Q6HPO [facility] Last Admin: 11/28/18 06:47 Dose: 30 mg Gabapentin (Neurontin -) 100 mg PO DAILY [facility] Last Admin: 11/28/18 09:06 Dose: 100 mg Propofol (Diprivan -) 1,000,000 mcg in 100 mls @ 4.011 mls/hr IVPB TITR [facility]; Protocol Last Titration: 11/28/18 04:30 Dose: 10 mcg/kg/min, 8.022 mls/hr Insulin Aspart (Novolog Vial Sliding Scale -) 1 vial SQ ACHS [facility]; Protocol Last Admin: 11/28/18 12:41 Dose: 2 units Insulin Detemir (Levemir Vial) 10 units SQ HS [facility] Last Admin: 11/27/18 21:44 Dose: 10 units Lorazepam (Ativan Injection -) 1 mg IVPUSH Q6H PRN PRN Reason: WITHDRAWAL(CONT SUBST) Last Admin: 11/26/18 20:43 Dose: 1 mg Methylprednisolone Sodium Succinate (Solu-Medrol -) 40 mg IVPUSH DAILY [facility] Last Admin: 11/28/18 09:05 Dose: 40 mg Multivitamins/Minerals/Vitamin C (Tab-A-Vit -) 1 tab PO DAILY [facility] Last Admin: 11/28/18 09:06 Dose: 1 tab Pantoprazole Sodium (Protonix -) 20 mg PO DAILY [facility] Last Admin: 11/28/18 09:06 Dose: 20 mg Thiamine HCl (Vitamin B1 Injection -) 200 mg IVPB DAILY [facility] Last Admin: 11/28/18 09:06 Dose: 200 mg INR, PTT INR 1.13 (0.83-1.09) H 11/23/18 16:40 CBC, BMP 11/28/18 05:15 11/28/18 05:15 Microbiology 11/24/18 04:00 Blood Culture - Preliminary Blood - Peripheral Venous NO GROWTH OBTAINED AFTER 96 HOURS, INCUBATION TO CONTINUE FOR 1 DAYS. 11/24/18 04:00 Blood Culture - Preliminary Blood - Peripheral Venous NO GROWTH OBTAINED AFTER 96 HOURS, INCUBATION TO CONTINUE FOR 1 DAYS. Physical Exam. intubated/ sedated Bilateral Breath Sounds-- distant S1 S2 RRR abd - soft / obese . edema + PLAN Monitor icu meds reviewed Pt is critically ill Start on dialysis ? will discuss with renal Discussed with icu team. Discussed with nursing staff also Discussed in detail with pts family Will follow cc time 30 min Problem List - Problems (1) Acute respiratory failure with hypoxia and hypercapnia Code(s): J96.01 - ACUTE RESPIRATORY FAILURE WITH HYPOXIA; J96.02 - ACUTE RESPIRATORY FAILURE WITH HYPERCAPNIA (2) Atrial flutter Code(s): I48.92 - UNSPECIFIED ATRIAL FLUTTER (3) Bilateral lower extremity edema Code(s): R60.0 - LOCALIZED EDEMA (4) COPD exacerbation Code(s): J44.1 - CHRONIC OBSTRUCTIVE PULMONARY DISEASE W (ACUTE) EXACERBATION (5) Diabetes Code(s): E11.9 - TYPE 2 DIABETES MELLITUS WITHOUT COMPLICATIONS (6) Elevated LFTs Code(s): R94.5 - ABNORMAL RESULTS OF LIVER FUNCTION STUDIES (7) Hyperlipidemia Code(s): E78.5 - HYPERLIPIDEMIA, UNSPECIFIED (8) Morbid obesity Code(s): E66.01 - MORBID (SEVERE) OBESITY DUE TO EXCESS CALORIES (9) Acute renal failure Code(s): N17.9 - ACUTE KIDNEY FAILURE, UNSPECIFIED (10) Pulmonary hypertension Code(s): I27.20 - PULMONARY HYPERTENSION, UNSPECIFIED
--- NOTE | 2018-11-28 13:25 | PN ---
Problem List - Problems (1) Acute respiratory failure with hypoxia and hypercapnia Code(s): J96.01 - ACUTE RESPIRATORY FAILURE WITH HYPOXIA; J96.02 - ACUTE RESPIRATORY FAILURE WITH HYPERCAPNIA (2) Atrial flutter Code(s): I48.92 - UNSPECIFIED ATRIAL FLUTTER (3) Elevated LFTs Code(s): R94.5 - ABNORMAL RESULTS OF LIVER FUNCTION STUDIES (4) Pneumonia Code(s): J18.9 - PNEUMONIA, UNSPECIFIED ORGANISM (5) COPD exacerbation Code(s): J44.1 - CHRONIC OBSTRUCTIVE PULMONARY DISEASE W (ACUTE) EXACERBATION (6) Cellulitis Code(s): L03.90 - CELLULITIS, UNSPECIFIED (7) Morbid obesity Code(s): E66.01 - MORBID (SEVERE) OBESITY DUE TO EXCESS CALORIES
--- NOTE | 2018-11-28 14:58 | PN ---
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, Physician History of Present Illness: Pt seen and examined at bedside. She remain in the ICU. She remain intubated. Pt remains critically ill. - Current Medication List Current Medications: Active Medications Albuterol/Ipratropium (Duoneb -) 1 amp NEB RQID [facility] Last Admin: 11/28/18 11:33 Dose: 1 amp Apixaban (Eliquis -) 5 mg PO BID [facility] Last Admin: 11/28/18 09:06 Dose: 5 mg Aspirin (Asa -) 81 mg PO DAILY [facility] Last Admin: 11/28/18 09:06 Dose: 81 mg Budesonide/Formoterol Fumarate (Symbicort 160/4.5mcg -) 1 puff IH DAILY [facility] Last Admin: 11/28/18 09:05 Dose: Not Given Diltiazem HCl (Cardizem -) 30 mg PO Q6HPO [facility] Last Admin: 11/28/18 13:09 Dose: 30 mg Gabapentin (Neurontin -) 100 mg PO DAILY [facility] Last Admin: 11/28/18 09:06 Dose: 100 mg Propofol (Diprivan -) 1,000,000 mcg in 100 mls @ 4.011 mls/hr IVPB TITR [facility]; Protocol Last Titration: 11/28/18 13:35 Dose: 12 mcg/kg/min, 9.626 mls/hr Insulin Aspart (Novolog Vial Sliding Scale -) 1 vial SQ ACHS [facility]; Protocol Last Admin: 11/28/18 12:41 Dose: 2 units Insulin Detemir (Levemir Vial) 10 units SQ HS [facility] Last Admin: 11/27/18 21:44 Dose: 10 units Lorazepam (Ativan Injection -) 1 mg IVPUSH Q6H PRN PRN Reason: WITHDRAWAL(CONT SUBST) Last Admin: 11/26/18 20:43 Dose: 1 mg Methylprednisolone Sodium Succinate (Solu-Medrol -) 40 mg IVPUSH DAILY [facility] Last Admin: 11/28/18 09:05 Dose: 40 mg Multivitamins/Minerals/Vitamin C (Tab-A-Vit -) 1 tab PO DAILY [facility] Last Admin: 11/28/18 09:06 Dose: 1 tab Pantoprazole Sodium (Protonix -) 20 mg PO DAILY [facility] Last Admin: 11/28/18 09:06 Dose: 20 mg Thiamine HCl (Vitamin B1 Injection -) 200 mg IVPB DAILY [facility] Last Admin: 11/28/18 09:06 Dose: 200 mg - Objective Vital Signs: Vital Signs Temperature 98.4 F 11/28/18 06:00 Pulse Rate 136 H 11/28/18 13:40 Respiratory Rate 26 H 11/28/18 13:55 Blood Pressure 121/89 11/28/18 13:40 O2 Sat by Pulse Oximetry (%) 91 L 11/28/18 13:52 Constitutional: Yes: Mild Distress Eyes: Yes: Conjunctiva Clear HENT: Yes: Atraumatic Cardiovascular: Yes: S1, S2 Respiratory: Yes: Mechanically Ventilated Gastrointestinal: Yes: Soft, Abdomen, Obese Genitourinary: Yes: Bills Present Edema: Yes Edema: LUE: 2+, RUE: 2+, LLE: 3+, RLE: 3+ Neurological: Yes: Lethargy Labs: CBC, BMP 11/28/18 05:15 11/28/18 05:15 INR, PTT INR 1.13 (0.83-1.09) H 11/23/18 16:40 - ....Imaging Chest X-ray: Report Reviewed Problem List - Problems (1) Hyperkalemia Code(s): E87.5 - HYPERKALEMIA (2) Acute on chronic respiratory failure with hypoxia and hypercapnia Code(s): J96.21 - ACUTE AND CHRONIC RESPIRATORY FAILURE WITH HYPOXIA; J96.22 - ACUTE AND CHRONIC RESPIRATORY FAILURE WITH HYPERCAPNIA (3) Acute renal failure Code(s): N17.9 - ACUTE KIDNEY FAILURE, UNSPECIFIED (4) Alcoholism Code(s): F10.20 - ALCOHOL DEPENDENCE, UNCOMPLICATED (5) Atrial flutter Code(s): I48.92 - UNSPECIFIED ATRIAL FLUTTER (6) Bilateral lower extremity edema Code(s): R60.0 - LOCALIZED EDEMA (7) COPD exacerbation Code(s): J44.1 - CHRONIC OBSTRUCTIVE PULMONARY DISEASE W (ACUTE) EXACERBATION Assessment/Plan Current Medications Generic Name Dose Route Start Last Admin Trade Name Freq PRN Reason Stop Dose Admin Albuterol/Ipratropium 1 amp 11/25/18 20:10 11/28/18 11:33 Duoneb - NEB 1 amp RQID [facility] Administration Apixaban 5 mg 11/24/18 10:00 11/28/18 09:06 Eliquis - PO 5 mg BID [facility] Administration Aspirin 81 mg 11/24/18 10:00 11/28/18 09:06 Asa - PO 81 mg DAILY [facility] Administration Budesonide/Formoterol Fumarate 1 puff 11/24/18 10:00 11/28/18 09:05 Symbicort 160/4.5mcg - IH Not Given DAILY [facility] Diltiazem HCl 30 mg 11/24/18 06:00 11/28/18 13:09 Cardizem - PO 30 mg Q6HPO [facility] Administration Gabapentin 100 mg 11/24/18 10:00 11/28/18 09:06 Neurontin - PO 100 mg DAILY [facility] Administration Propofol 1,000,000 mcg in 100 mls @ 4.011 mls/hr 11/27/18 14:00 11/28/18 13: 35 Diprivan - IVPB 12 mcg/kg/min TITR [facility] 9.626 mls/hr Titration Protocol 5 MCG/KG/MIN Insulin Aspart 1 vial 11/24/18 11:00 11/28/18 12:41 Novolog Vial Sliding Scale - SQ 2 units ACHS [facility] Administration Protocol Insulin Detemir 10 units 11/24/18 22:00 11/27/18 21:44 Levemir Vial SQ 10 units HS [facility] Administration Lorazepam 1 mg 11/26/18 11:22 11/26/18 20:43 Ativan Injection - IVPUSH 1 mg Q6H PRN Administration WITHDRAWAL(CONT SUBST) Methylprednisolone Sodium Succinate 40 mg 11/28/18 10:00 11/28/18 09:05 Solu-Medrol - IVPUSH 40 mg DAILY [facility] Administration Multivitamins/Minerals/Vitamin C 1 tab 11/24/18 10:00 11/28/18 09:06 Tab-A-Vit - PO 1 tab DAILY [facility] Administration Pantoprazole Sodium 20 mg 11/24/18 11:30 11/28/18 09:06 Protonix - PO 20 mg DAILY [facility] Administration Thiamine HCl 200 mg 11/26/18 11:30 11/28/18 09:06 Vitamin B1 Injection - IVPB 200 mg DAILY [facility] Administration Laboratory Tests 11/24/18 11/25/18 11/26/18 12:50 18:25 05:30 Urine Eosinophils Pending YASH M-[place] Pending Serum YASH Interpret Pending YASH Interpretation Pending IEP IgG Pending IEP IgA Pending IEP IgM Pending KARLENE Screen Positive H KARLENE Homogeneous Pattern 1:160 H c-ANCA Pending Proteinase 3 (PR3) Pending p-ANCA Pending Atypical p-ANCA Pending Myeloperoxidase Ab Pending Double Strand DNA Ab <1 Glomerular Base Memb Ab 3 Hep Bs Antigen Negative Hep Bs Antibody Reactive Hep B Core Total Ab Positive H HCV Quantitation Pending Influenza A (Rapid) Negative Influenza B (Rapid) Negative Laboratory Tests 11/25/18 18:25 Urine Eosinophils None seen Laboratory Tests 11/28/18 06:40 ABG pH 7.32 L ABG pCO2 at Pt Temp 63.5 H* ABG HCO3 31.6 H Impression 1. PITO 2. hyperkalemia 3. a-flutter 4. resp failure requiring bipap 5. DM 6. HTN 7. active smoker 8. etoh abuse 9. obesity 10. interstitial lung disease on CT scan 11. resp acidosis 12. COPD Plan - pt has made 600 cc of urine since this morning - potassium treated medically earlier today - monitor renal function - may need HD if does not start to improve - cont with lasix doses - repeat echo was non conclusive of ef secondary to body habitus - rheum eval for positive karlene - vent support - lasix as needed - may need HD if she continues to worsen - monitor urine output - pt remains fluid overloaded - will follow closely - ph on abg improving - pt has very poor respiratory status - discussed with ICU team
[2018-11-28] MEDS ORDERED: DEXTROSE 50%-WATER - 25 GM/50 ML VIAL IVPUSH ONE ×2 (15:09→20:15)
[2018-11-28] MEDS ORDERED: CALCIUM GLUCONATE 10% - 1,000 MG/10 ML VIAL IVPUSH ONE ×2 (15:09→20:15)
[2018-11-28] MEDS ORDERED: INSULIN REGULAR HUMAN 100 UNITS/ML *VIAL IVPUSH ONE ×2 (15:09→20:15)
[2018-11-28] MEDS: PROPOFOL 1,000,000 MCG/100 ML VIAL IVPB SCH (15:17)
[2018-11-28] MEDS ORDERED: DEXTROSE 50%-WATER 25 GM/50 ML DISP.SYRIN ONE ×2 (15:20→20:15)
[2018-11-28 19:05] LABS: ANION GAP 9 MMOL/L (8-16); CALCIUM 8.7 mg/dL (8.5-10.1); CHLORIDE 94 mmol/L (98-107); CO2 33 mmol/L (21-32); CREATININE 2.8 mg/dL (0.55-1.3); GLUCOSE,RANDOM 229 mg/dL (74-106); POTASSIUM 5.6 mmol/L (3.5-5.1); SODIUM 136 mmol/L (136-145)
--- NOTE | 2018-11-28 19:13 | EKG ---
Test Reason : Blood Pressure : / mmHG Vent. Rate : 136 BPM Atrial Rate : 272 BPM P-R Int : 000 ms QRS Dur : 086 ms QT Int : 296 ms P-R-T Axes : 261 117 013 degrees QTc Int : 445 ms ATRIAL FLUTTER WITH 2:1 A-V CONDUCTION RIGHT AXIS DEVIATION PULMONARY DISEASE PATTERN ABNORMAL ECG WHEN COMPARED WITH ECG OF 27-NOV-2018 09:15, NON-SPECIFIC CHANGE IN ST SEGMENT IN INFERIOR LEADS Confirmed by RACHELLE BROWN MD ([id number]) on 11/28/2018 7:13:27 PM Referred By: DIONE HILLMAN Confirmed By:RACHELLE BROWN MD
[2018-11-28 19:37] LABS: BLOOD UREA NITROGEN 128 mg/dL (7-18)
[2018-11-28] MEDS ORDERED: METOPROLOL TARTRATE 5 MG/5 ML VIAL IVPUSH ONE (19:58)
[2018-11-28] MEDS ORDERED: METOPROLOL TARTRATE 5 MG/5 ML VIAL ONE (21:36)
[2018-11-28] MEDS: INSULIN (LEVEMIR) 100 UNITS/ML UNITS SQ SCH (21:38)
[2018-11-28] MEDS: METOPROLOL TARTRATE 5 MG/5 ML VIAL IVPUSH PRN (21:44)
[2018-11-28] MEDS ORDERED: LORazepam 2 MG/ML SDV VIAL ONE (23:10)
[2018-11-28] MEDS ORDERED: LORazepam 2 MG/ML SDV VIAL IVPUSH PRN (23:19)
[2018-11-29] MEDS: dilTIAZem HCL 30 MG TABLET (FP) PO SCH ×3 (00:07→11:57)
[2018-11-29] MEDS: METOPROLOL TARTRATE 5 MG/5 ML VIAL IVPUSH PRN (02:10)
[2018-11-29 05:50] LABS: BASO % 0.2 % (0-2.0); HEMATOCRIT 48.5 % (32.4-45.2); HEMOGLOBIN 15.3 GM/dL (10.7-15.3); LYMPH % 7.2 % (8-40); MCH 32.4 pg (25.7-33.7); MCHC 31.7 g/dl (32.0-36.0); MEAN CELL VOLUME 102.4 fl (80-96); MEAN PLT VOLUME 9.1 fl (7.5-11.1); MONO % 8.2 % (3.8-10.2); NEUT % 84.4 % (42.8-82.8); PLATELET COUNT 132 K/MM3 (134-434); RBC 4.73 M/mm3 (3.60-5.2); RDW 15.1 % (11.6-15.6); WHITE BLOOD COUNT 9.4 K/mm3 (4.0-10.0)
[2018-11-29] MEDS: INSULIN SLIDING SCALE (NOVOLOG) 1 VIAL SQ SCH ×4 (06:05→21:20)
[2018-11-29 06:23] LABS: ALBUMIN 2.8 g/dl (3.4-5.0); ALK PHOS 98 U/L (45-117); ANION GAP 8 MMOL/L (8-16); BILIRUBIN,TOTAL 0.6 mg/dL (0.2-1); CALCIUM 8.4 mg/dL (8.5-10.1); CHLORIDE 96 mmol/L (98-107); CO2 33 mmol/L (21-32); CREATININE 2.7 mg/dL (0.55-1.3); GLUCOSE,RANDOM 183 mg/dL (74-106); MAGNESIUM 3.2 mg/dL (1.8-2.4); PHOSPHOROUS 6.7 mg/dL (2.5-4.9); POTASSIUM 5.5 mmol/L (3.5-5.1); SGOT/AST 15 U/L (15-37); SGPT/ALT 29 U/L (13-61); SODIUM 138 mmol/L (136-145); TOT PROT 5.8 g/dl (6.4-8.2)
[2018-11-29 06:43] LABS: BLOOD UREA NITROGEN 126 mg/dL (7-18)
[2018-11-29] MEDS: ALBUTEROL SO4 2.5/IPRATROPIUM 0.5 INH SOL 3 ML VIAL.NEB. NEB SCH ×4 (08:12→20:44)
[2018-11-29] MEDS: ASPIRIN 81 MG CHEWABLE TABLETS PO SCH (09:34)
[2018-11-29] MEDS: MULTIVITAMINS (DAILY MVI) TABLET (FP) PO SCH (09:34)
[2018-11-29] MEDS: PANTOPRAZOLE 20 MG TABLET (FP) PO SCH (09:35)
[2018-11-29] MEDS: APIXABAN 5 MG TABLET PO SCH ×2 (09:35→21:23)
[2018-11-29] MEDS: GABAPENTIN 100 MG CAPSULE (FP) PO SCH (09:35)
[2018-11-29] MEDS: methylPREDNISolone NA SUCC 40 MG/1 ML VIAL IVPUSH SCH (09:36)
[2018-11-29] MEDS: BUDESONIDE/FORMETEROL FUMARATE 160/4.5 mcg INHALER IH SCH (09:36)
[2018-11-29] MEDS: THIAMINE HCL 200 MG/2 ML VIAL IVPB SCH (09:36)
--- NOTE | 2018-11-29 09:49 | PN ---
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 (short form) - Note 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: PULM/CCM SUBJECTIVE: Patient seen and examined in the ICU. 24HR: -remains intubated -afebrile, hemodynamically stable CXR: left base slightly worse OBJECTIVE: Vital Signs Temp 97.7 F 11/29/18 06:00 Pulse 118 H 11/29/18 08:11 Resp 24 H 11/29/18 08:11 BP 116/85 11/29/18 06:00 Pulse Ox 96 11/29/18 08:11 Intake & Output 11/28/18 11/28/18 11/29/18 11:59 23:59 11:59 Intake Total 55 347 232 Output Total 1575 500 Balance 55 -1228 -268 Weight 124.829 kg 125 kg Intake: IV 55 87 112 DIPRIVAN - 1,000,000 mcg 87 112 In 100 ml @ 5 MCG/KG/MIN 4.011 mls/hr IVPB TITR [facility] Rx#:[id number] left forearm 55 Tube Irrigant 260 120 Output: Urine 1575 500 Bills 1575 500 Other: Voiding Method Indwelling Catheter Indwelling Catheter Bowel Movement No Body Mass Index (BMI) 41.8 Weight Measurement Method [facility] Current Medications Albuterol/Ipratropium (Duoneb -) 1 amp NEB RQID [facility] Last Admin: 11/29/18 08:12 Dose: 1 amp Apixaban (Eliquis -) 5 mg PO BID [facility] Last Admin: 11/29/18 09:35 Dose: 5 mg Aspirin (Asa -) 81 mg PO DAILY [facility] Last Admin: 11/29/18 09:34 Dose: 81 mg Budesonide/Formoterol Fumarate (Symbicort 160/4.5mcg -) 1 puff IH DAILY [facility] Last Admin: 11/29/18 09:36 Dose: Not Given Diltiazem HCl (Cardizem -) 30 mg PO Q6HPO [facility] Last Admin: 11/29/18 06:05 Dose: 30 mg Gabapentin (Neurontin -) 100 mg PO DAILY [facility] Last Admin: 11/29/18 09:35 Dose: 100 mg Propofol (Diprivan -) 1,000,000 mcg in 100 mls @ 4.011 mls/hr IVPB TITR [facility]; Protocol Last Titration: 11/28/18 21:27 Dose: 20 mcg/kg/min, 16.044 mls/hr Insulin Aspart (Novolog Vial Sliding Scale -) 1 vial SQ ACHS [facility]; Protocol Last Admin: 11/29/18 06:05 Dose: 2 units Insulin Detemir (Levemir Vial) 10 units SQ HS [facility] Last Admin: 11/28/18 21:38 Dose: 10 units Lorazepam (Ativan Injection -) 2 mg IVPUSH Q4H PRN PRN Reason: Anxiety or agitation Methylprednisolone Sodium Succinate (Solu-Medrol -) 40 mg IVPUSH DAILY [facility] Last Admin: 11/29/18 09:36 Dose: 40 mg Metoprolol Tartrate (Lopressor Injection -) 5 mg IVPUSH Q4H PRN PRN Reason: HR >120 Last Admin: 11/29/18 02:10 Dose: 5 mg Multivitamins/Minerals/Vitamin C (Tab-A-Vit -) 1 tab PO DAILY [facility] Last Admin: 11/29/18 09:34 Dose: 1 tab Pantoprazole Sodium (Protonix -) 20 mg PO DAILY [facility] Last Admin: 11/29/18 09:35 Dose: 20 mg Thiamine HCl (Vitamin B1 Injection -) 200 mg IVPB DAILY [facility] Last Admin: 11/29/18 09:36 Dose: 200 mg Gen: intubated sedated Heart: RRR, no m/r/g appreciated Lung: distant breath sounds, scattered wheezes Abd: soft, nontender Ext: + edema Neuro: withdrawals bilaterally CBC,CMP WBC 9.4 K/mm3 (4.0-10.0) 11/29/18 05:30 RBC 4.73 M/mm3 (3.60-5.2) 11/29/18 05:30 Hgb 15.3 GM/dL (10.7-15.3) 11/29/18 05:30 Hct 48.5 % (32.4-45.2) H 11/29/18 05:30 MCV 102.4 fl (80-96) H 11/29/18 05:30 MCH 32.4 pg (25.7-33.7) 11/29/18 05:30 MCHC 31.7 g/dl (32.0-36.0) L 11/29/18 05:30 RDW 15.1 % (11.6-15.6) 11/29/18 05:30 Plt Count 132 K/MM3 (134-434) L 11/29/18 05:30 MPV 9.1 fl (7.5-11.1) 11/29/18 05:30 Absolute Neuts (auto) 7.9 K/mm3 (1.5-8.0) 11/29/18 05:30 Neutrophils % 84.4 % (42.8-82.8) H 11/29/18 05:30 Lymphocytes % 7.2 % (8-40) L D 11/29/18 05:30 Monocytes % 8.2 % (3.8-10.2) 11/29/18 05:30 Eosinophils % 0.0 % (0-4.5) 11/29/18 05:30 Basophils % 0.2 % (0-2.0) 11/29/18 05:30 Nucleated RBC % 0 % (0-0) 11/29/18 05:30 Platelet Estimate Adequate 11/23/18 16:40 Platelet Comment 11/23/18 16:40 Polychromasia 1+ 11/23/18 16:40 Poikilocytosis 1+ 11/23/18 16:40 Macrocytosis 2+ 11/23/18 16:40 Ovalocytes 1+ 11/23/18 16:40 Sodium 138 mmol/L (136-145) 11/29/18 05:30 Potassium 5.5 mmol/L (3.5-5.1) H 11/29/18 05:30 Chloride 96 mmol/L (98-107) L 11/29/18 05:30 Carbon Dioxide 33 mmol/L (21-32) H 11/29/18 05:30 Anion Gap 8 MMOL/L (8-16) 11/29/18 05:30 BUN 126 mg/dL (7-18) H* 11/29/18 05:30 Creatinine 2.7 mg/dL (0.55-1.3) H 11/29/18 05:30 Creat Clearance w eGFR 18.36 (>60) 11/29/18 05:30 POC Glucometer 183.73077 UNITS (80-120) 11/29/18 05:48 Random Glucose 183 mg/dL (74-106) H 11/29/18 05:30 Hemoglobin A1c % 7.3 % (4.2-6.3) H 11/24/18 09:54 Lactic Acid 1.9 mmol/L (0.4-2.0) 11/24/18 15:28 Calcium 8.4 mg/dL (8.5-10.1) L 11/29/18 05:30 Phosphorus 6.7 mg/dL (2.5-4.9) H 11/29/18 05:30 Magnesium 3.2 mg/dL (1.8-2.4) H 11/29/18 05:30 Total Bilirubin 0.6 mg/dL (0.2-1) 11/29/18 05:30 AST 15 U/L (15-37) 11/29/18 05:30 ALT 29 U/L (13-61) 11/29/18 05:30 Alkaline Phosphatase 98 U/L (45-117) 11/29/18 05:30 Creatine Kinase 38 IU/L (26-192) 11/23/18 16:40 Troponin I < 0.02 ng/ml (0.00-0.05) 11/25/18 18:30 B-Natriuretic Peptide 2700.4 pg/ml (5-125) H 11/28/18 05:15 Total Protein 5.8 g/dl (6.4-8.2) L 11/29/18 05:30 Total Protein (PEP) 6.0 g/dL (6.0-8.5) 11/26/18 05:30 Albumin 2.8 g/dl (3.4-5.0) L 11/29/18 05:30 Albumin (PEP) 3.1 gm/dl (2.9-4.4) 11/26/18 05:30 Globulin 2.9 g/dL (2.2-3.9) 11/26/18 05:30 Albumin/Globulin Ratio 1.1 (0.7-1.7) 11/26/18 05:30 Beta Globulins 1.0 gm/dL (0.7-1.3) 11/26/18 05:30 Triglycerides 151 mg/dL (0-150) H 11/24/18 09:54 Cholesterol 168 mg/dL (50-200) 11/24/18 09:54 Total LDL Cholesterol 108 mg/dL (5-100) H 11/24/18 09:54 HDL Cholesterol 31 mg/dL (40-60) L 11/24/18 09:54 TSH 1.03 uIU/ml (0.358-3.74) 11/24/18 09:54 ASSESSMENT AND PLAN: Acute on Chronic Hypoxic and Hypercapneic Respiratory Failure Acute COPD Exacerbation Morbid Obesity Obstructive Sleep Apnea/Obesity Hypoventilation Syndrome Suspect Right Heart Failure Volume Overload Mediastinal Lymphadenopathy Atrial Flutter with RVR Cellulitis Acute Kidney Injury Alcohol Abuse - Current vent settings , wean to PS once wheezing improves - Taper medrol - Inhaled bronchodilators - Titrate Fio2 to keep Spo2 88-92% - Daily assessment for Lasix - monitor urine output, creatinine, renal following, now acute needs for [employer] as non-oliguric - Rate control - Continue anticoagulation, may need to transition to hep gtt - Outpatient f/u of mediastinal lymphadenopathy -PPI - Laurent ALEGREP
[2018-11-29] MEDS ORDERED: FUROSEMIDE 40 MG/4 ML INJECTABLE VIAL IVPUSH ONE (09:52)
[2018-11-29] MEDS ORDERED: FUROSEMIDE 40 MG/4 ML INJECTABLE VIAL ONE (09:57)
[2018-11-29] MEDS ORDERED: fentaNYL CITRATE 250 MCG/5 ML VIAL ONE ×3 (09:57→22:56)
[2018-11-29] MEDS: FENTANYL INJECTION 500 MCG in DEXTROSE 5%-WATER - 90 ML IVPB SCH (10:15)
--- NOTE | 2018-11-29 10:59 | PN ---
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 (short form) - Note 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: Subjective: --No acute overnight events --Patient remains intubated/sedated --Echocardiogram on 11/28 limited due to body habitus, unable to assess systolic function or wall motion. Objective: Vital Signs 11/29/18 11/29/18 11/29/18 03:27 04:00 06:00 Temperature 97.7 F Pulse Rate 118 H 137 H Respiratory 24 H 24 H 24 H Rate Blood Pressure 100/71 116/85 O2 Sat by Pulse Oximetry (%) 11/29/18 11/29/18 11/29/18 06:08 08:11 10:53 Temperature Pulse Rate 118 H Respiratory 24 H 24 H 24 H Rate Blood Pressure O2 Sat by Pulse 96 Oximetry (%) Gen: intubated/sedated Cardiac: S1/S2, no murmurs appreciated Pulm: clear breath sounds in anterior lung burgess Ext: WWP. 2+ edema bilaterally. Abnormal Lab Results 11/28/18 11/29/18 11/29/18 18:00 05:30 05:30 Hct 48.5 H MCV 102.4 H MCHC 31.7 L Plt Count 132 L Neutrophils % 84.4 H Lymphocytes % 7.2 L D Potassium 5.6 H 5.5 H Chloride 94 L 96 L Carbon Dioxide 33 H 33 H BUN 128 H* 126 H* Creatinine 2.8 H 2.7 H Random Glucose 229 H 183 H Calcium 8.4 L Phosphorus 6.7 H Magnesium 3.2 H Total Protein 5.8 L Albumin 2.8 L ECG 11/28: atrial flutter with 2:1 conduction Active Medications Albuterol/Ipratropium (Duoneb -) 1 amp NEB RQID [facility] Last Admin: 11/29/18 08:12 Dose: 1 amp Apixaban (Eliquis -) 5 mg PO BID [facility] Last Admin: 11/29/18 09:35 Dose: 5 mg Aspirin (Asa -) 81 mg PO DAILY [facility] Last Admin: 11/29/18 09:34 Dose: 81 mg Budesonide/Formoterol Fumarate (Symbicort 160/4.5mcg -) 1 puff IH DAILY [facility] Last Admin: 11/29/18 09:36 Dose: Not Given Diltiazem HCl (Cardizem -) 30 mg PO Q6HPO [facility] Last Admin: 11/29/18 06:05 Dose: 30 mg Gabapentin (Neurontin -) 100 mg PO DAILY [facility] Last Admin: 11/29/18 09:35 Dose: 100 mg Propofol (Diprivan -) 1,000,000 mcg in 100 mls @ 4.011 mls/hr IVPB TITR [facility]; Protocol Last Titration: 11/28/18 21:27 Dose: 20 mcg/kg/min, 16.044 mls/hr Fentanyl 500 mcg/ Dextrose 100 mls @ 10 mls/hr IVPB TITR [facility]; Protocol Last Admin: 11/29/18 10:15 Dose: 50 mcg/hr, 10 mls/hr Insulin Aspart (Novolog Vial Sliding Scale -) 1 vial SQ ACHS [facility]; Protocol Last Admin: 11/29/18 06:05 Dose: 2 units Insulin Detemir (Levemir Vial) 10 units SQ HS [facility] Last Admin: 11/28/18 21:38 Dose: 10 units Lorazepam (Ativan Injection -) 2 mg IVPUSH Q4H PRN PRN Reason: Anxiety or agitation Methylprednisolone Sodium Succinate (Solu-Medrol -) 40 mg IVPUSH DAILY [facility] Last Admin: 11/29/18 09:36 Dose: 40 mg Metoprolol Tartrate (Lopressor Injection -) 5 mg IVPUSH Q4H PRN PRN Reason: HR >120 Last Admin: 11/29/18 02:10 Dose: 5 mg Multivitamins/Minerals/Vitamin C (Tab-A-Vit -) 1 tab PO DAILY [facility] Last Admin: 11/29/18 09:34 Dose: 1 tab Pantoprazole Sodium (Protonix -) 20 mg PO DAILY [facility] Last Admin: 11/29/18 09:35 Dose: 20 mg Thiamine HCl (Vitamin B1 Injection -) 200 mg IVPB DAILY [facility] Last Admin: 11/29/18 09:36 Dose: 200 mg A/P: 53 YOF with h/o COPD , chronic alcoholism (several glasses of rum daily), DM, HTN, hyperlipidemia, metabolic syndrome admitted with respiratory failure secondary to COPD exacerbation currently intubated/sedated hospital course complicated by atrial flutter with rapid ventricular response. #Atrial flutter with rapid ventricular response; will be difficult to rate control atrial flutter. Will eventually need EP consultation for ablation if deemed appropriate candidate Treatment: Rate: increase dilt from 30 to 60mg q6hrs (decrease if SBP<90) AC: continue apixaban --continue to monitor on telemetry #Heart Failure; continue IV lasix for goal of net negative 1L daily --strict i/os, daily weights #Hyperkalemia; please ensure K+ <5.5 --appreciate renal recommendations Management of COPD exacerbation and renal dysfunction per primary team. We will continue to follow. Bird Savage MD
--- NOTE | 2018-11-29 13:20 | PN ---
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 (short form) - Note 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: Intubated on Cardizem , rate is better controlled Vital Signs - 24 hr 11/28/18 11/28/18 11/28/18 13:38 13:40 13:52 Temperature Pulse Rate 136 H Respiratory 26 H 24 H Rate Blood Pressure 121/89 O2 Sat by Pulse 91 L Oximetry (%) 11/28/18 11/28/18 11/28/18 13:55 14:00 15:00 Temperature Pulse Rate 132 H Respiratory 26 H 27 H 24 H Rate Blood Pressure 131/86 O2 Sat by Pulse Oximetry (%) 11/28/18 11/28/18 11/28/18 16:00 17:00 18:08 Temperature 98.2 F 98 F Pulse Rate 138 H 122 H Respiratory 24 H 24 H 24 H Rate Blood Pressure 128/93 122/86 O2 Sat by Pulse Oximetry (%) 11/28/18 11/28/18 11/28/18 20:00 20:02 21:00 Temperature Pulse Rate 139 H 138 H Respiratory 24 H 24 H Rate Blood Pressure 122/89 122/89 O2 Sat by Pulse 96 Oximetry (%) 11/28/18 11/28/18 11/28/18 21:26 21:44 22:00 Temperature 97.9 F Pulse Rate 126 H 139 H 109 H Respiratory 24 H 24 H Rate Blood Pressure 109/87 109/87 95/69 O2 Sat by Pulse Oximetry (%) 11/29/18 11/29/18 11/29/18 00:00 00:19 02:07 Temperature 98.3 F Pulse Rate 126 H 135 H Respiratory 24 H 24 H 24 H Rate Blood Pressure 109/75 110/85 O2 Sat by Pulse Oximetry (%) 11/29/18 11/29/18 11/29/18 02:10 03:27 04:00 Temperature Pulse Rate 137 H 118 H Respiratory 24 H 24 H Rate Blood Pressure 110/85 100/71 O2 Sat by Pulse Oximetry (%) 11/29/18 11/29/18 11/29/18 06:00 06:08 08:11 Temperature 97.7 F Pulse Rate 137 H 118 H Respiratory 24 H 24 H 24 H Rate Blood Pressure 116/85 O2 Sat by Pulse 96 Oximetry (%) 11/29/18 10:53 Temperature Pulse Rate Respiratory 24 H Rate Blood Pressure O2 Sat by Pulse Oximetry (%) Current Medications Generic Name Dose Route Start Last Admin Trade Name Freq PRN Reason Stop Dose Admin Albuterol/Ipratropium 1 amp 11/25/18 20:10 11/29/18 11:37 Duoneb - NEB 1 amp RQID [facility] Administration Apixaban 5 mg 11/24/18 10:00 11/29/18 09:35 Eliquis - PO 5 mg BID [facility] Administration Aspirin 81 mg 11/24/18 10:00 11/29/18 09:34 Asa - PO 81 mg DAILY [facility] Administration Budesonide/Formoterol Fumarate 1 puff 11/24/18 10:00 11/29/18 09:36 Symbicort 160/4.5mcg - IH Not Given DAILY [facility] Diltiazem HCl 30 mg 11/24/18 06:00 11/29/18 11:57 Cardizem - PO 30 mg Q6HPO [facility] Administration Gabapentin 100 mg 11/24/18 10:00 11/29/18 09:35 Neurontin - PO 100 mg DAILY [facility] Administration Propofol 1,000,000 mcg in 100 mls @ 4.011 mls/hr 11/27/18 14:00 11/28/18 21: 27 Diprivan - IVPB 20 mcg/kg/min TITR [facility] 16.044 mls/hr Titration Protocol 5 MCG/KG/MIN Fentanyl 500 mcg/ Dextrose 100 mls @ 10 mls/hr 11/29/18 10:00 11/29/18 10:15 IVPB 50 mcg/hr TITR [facility] 10 mls/hr Administration Protocol 50 MCG/HR Insulin Aspart 1 vial 11/24/18 11:00 11/29/18 11:03 Novolog Vial Sliding Scale - SQ 2 units ACHS [facility] Administration Protocol Insulin Detemir 10 units 11/24/18 22:00 11/28/18 21:38 Levemir Vial SQ 10 units HS [facility] Administration Lorazepam 2 mg 11/28/18 23:19 Ativan Injection - IVPUSH Q4H PRN Anxiety or agitation Methylprednisolone Sodium Succinate 40 mg 11/28/18 10:00 11/29/18 09:36 Solu-Medrol - IVPUSH 40 mg DAILY [facility] Administration Metoprolol Tartrate 5 mg 11/28/18 21:33 11/29/18 02:10 Lopressor Injection - IVPUSH 5 mg Q4H PRN Administration HR >120 Multivitamins/Minerals/Vitamin C 1 tab 11/24/18 10:00 11/29/18 09:34 Tab-A-Vit - PO 1 tab DAILY [facility] Administration Pantoprazole Sodium 20 mg 11/24/18 11:30 11/29/18 09:35 Protonix - PO 20 mg DAILY [facility] Administration Thiamine HCl 200 mg 11/26/18 11:30 11/29/18 09:36 Vitamin B1 Injection - IVPB 200 mg DAILY [facility] Administration Laboratory Results - last 24 hr 11/26/18 11/28/18 11/28/18 05:30 16:59 18:00 WBC RBC Hgb Hct MCV MCH MCHC RDW Plt Count MPV Absolute Neuts (auto) Neutrophils % Lymphocytes % Monocytes % Eosinophils % Basophils % Nucleated RBC % Sodium 136 Potassium 5.6 H Chloride 94 L Carbon Dioxide 33 H Anion Gap 9 BUN 128 H* Creatinine 2.8 H Creat Clearance w eGFR 17.61 POC Glucometer 256.56123 Random Glucose 229 H Calcium 8.7 Phosphorus Magnesium Total Bilirubin AST ALT Alkaline Phosphatase Total Protein Total Protein (PEP) 6.0 Albumin Albumin (PEP) 3.1 Globulin 2.9 Albumin/Globulin Ratio 1.1 Beta Globulins 1.0 YASH M-Peewee Not observed HCV Quantitation TNP HCV RNA log copies/mL TNP 11/28/18 11/29/18 11/29/18 21:31 05:30 05:30 WBC 9.4 RBC 4.73 Hgb 15.3 Hct 48.5 H MCV 102.4 H MCH 32.4 MCHC 31.7 L RDW 15.1 Plt Count 132 L MPV 9.1 Absolute Neuts (auto) 7.9 Neutrophils % 84.4 H Lymphocytes % 7.2 L D Monocytes % 8.2 Eosinophils % 0.0 Basophils % 0.2 Nucleated RBC % 0 Sodium 138 Potassium 5.5 H Chloride 96 L Carbon Dioxide 33 H Anion Gap 8 BUN 126 H* Creatinine 2.7 H Creat Clearance w eGFR 18.36 POC Glucometer [phone] Random Glucose 183 H Calcium 8.4 L Phosphorus 6.7 H Magnesium 3.2 H Total Bilirubin 0.6 AST 15 ALT 29 Alkaline Phosphatase 98 Total Protein 5.8 L Total Protein (PEP) Albumin 2.8 L Albumin (PEP) Globulin Albumin/Globulin Ratio Beta Globulins YASH M-Peewee HCV Quantitation HCV RNA log copies/mL 11/29/18 11/29/18 05:48 10:56 WBC RBC Hgb Hct MCV MCH MCHC RDW Plt Count MPV Absolute Neuts (auto) Neutrophils % Lymphocytes % Monocytes % Eosinophils % Basophils % Nucleated RBC % Sodium Potassium Chloride Carbon Dioxide Anion Gap BUN Creatinine Creat Clearance w eGFR POC Glucometer 183.29660 167.57320 Random Glucose Calcium Phosphorus Magnesium Total Bilirubin AST ALT Alkaline Phosphatase Total Protein Total Protein (PEP) Albumin Albumin (PEP) Globulin Albumin/Globulin Ratio Beta Globulins YASH M-Peewee HCV Quantitation HCV RNA log copies/mL intubated sedated S1 S2 RRR Lungs decreased breath sounds Abd- soft, NT,obese, ND edema + PLAN In ICU - monitor O2 sat sedated on vent Ativan prn for withdrawal off antibiotics continue with meds Problem List - Problems (1) Acute on chronic respiratory failure with hypoxia and hypercapnia Code(s): J96.21 - ACUTE AND CHRONIC RESPIRATORY FAILURE WITH HYPOXIA; J96.22 - ACUTE AND CHRONIC RESPIRATORY FAILURE WITH HYPERCAPNIA (2) Acute renal failure Code(s): N17.9 - ACUTE KIDNEY FAILURE, UNSPECIFIED (3) Acute respiratory failure with hypoxia and hypercapnia Code(s): J96.01 - ACUTE RESPIRATORY FAILURE WITH HYPOXIA; J96.02 - ACUTE RESPIRATORY FAILURE WITH HYPERCAPNIA (4) Alcoholism Code(s): F10.20 - ALCOHOL DEPENDENCE, UNCOMPLICATED (5) Atrial flutter Code(s): I48.92 - UNSPECIFIED ATRIAL FLUTTER (6) Bilateral lower extremity edema Code(s): R60.0 - LOCALIZED EDEMA
[2018-11-29] MEDS: PROPOFOL 1,000,000 MCG/100 ML VIAL IVPB SCH (14:00)
[2018-11-29] MEDS: dilTIAZem HCL 60 MG TABLET (FP) PO SCH (17:10)
--- NOTE | 2018-11-29 18:18 | PN ---
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, Physician History of Present Illness: Pt seen and examined at bedside. She remains in the ICU. She remains intubated. Her urine output is improving and she is responding to lasix. - Current Medication List Current Medications: Active Medications Albuterol/Ipratropium (Duoneb -) 1 amp NEB RQID [facility] Last Admin: 11/29/18 15:46 Dose: 1 amp Apixaban (Eliquis -) 5 mg PO BID [facility] Last Admin: 11/29/18 09:35 Dose: 5 mg Aspirin (Asa -) 81 mg PO DAILY [facility] Last Admin: 11/29/18 09:34 Dose: 81 mg Budesonide/Formoterol Fumarate (Symbicort 160/4.5mcg -) 1 puff IH DAILY [facility] Last Admin: 11/29/18 09:36 Dose: Not Given Diltiazem HCl (Cardizem -) 60 mg PO Q6HPO [facility] Last Admin: 11/29/18 17:10 Dose: 60 mg Gabapentin (Neurontin -) 100 mg PO DAILY [facility] Last Admin: 11/29/18 09:35 Dose: 100 mg Propofol (Diprivan -) 1,000,000 mcg in 100 mls @ 4.011 mls/hr IVPB TITR [facility]; Protocol Last Admin: 11/29/18 14:00 Dose: 20 mcg/kg/min, 16.044 mls/hr Fentanyl 500 mcg/ Dextrose 100 mls @ 10 mls/hr IVPB TITR [facility]; Protocol Last Admin: 11/29/18 10:15 Dose: 50 mcg/hr, 10 mls/hr Insulin Aspart (Novolog Vial Sliding Scale -) 1 vial SQ ACHS [facility]; Protocol Last Admin: 11/29/18 16:38 Dose: 4 units Insulin Detemir (Levemir Vial) 10 units SQ HS [facility] Last Admin: 11/28/18 21:38 Dose: 10 units Lorazepam (Ativan Injection -) 2 mg IVPUSH Q4H PRN PRN Reason: Anxiety or agitation Methylprednisolone Sodium Succinate (Solu-Medrol -) 40 mg IVPUSH DAILY [facility] Last Admin: 11/29/18 09:36 Dose: 40 mg Metoprolol Tartrate (Lopressor Injection -) 5 mg IVPUSH Q4H PRN PRN Reason: HR >120 Last Admin: 11/29/18 02:10 Dose: 5 mg Multivitamins/Minerals/Vitamin C (Tab-A-Vit -) 1 tab PO DAILY [facility] Last Admin: 11/29/18 09:34 Dose: 1 tab Pantoprazole Sodium (Protonix -) 20 mg PO DAILY [facility] Last Admin: 11/29/18 09:35 Dose: 20 mg Thiamine HCl (Vitamin B1 Injection -) 200 mg IVPB DAILY [facility] Last Admin: 11/29/18 09:36 Dose: 200 mg - Objective Vital Signs: Vital Signs Temperature 98.4 F 11/29/18 12:00 Pulse Rate 94 H 11/29/18 18:00 Respiratory Rate 94 H 11/29/18 18:00 Blood Pressure 113/59 L 11/29/18 18:00 O2 Sat by Pulse Oximetry (%) 93 L 11/29/18 10:00 Constitutional: Yes: Calm Eyes: Yes: Conjunctiva Clear HENT: Yes: Atraumatic Cardiovascular: Yes: S1, S2 Respiratory: Yes: Mechanically Ventilated Gastrointestinal: Yes: Soft, Abdomen, Obese Genitourinary: Yes: Bills Present Musculoskeletal: Yes: Muscle Weakness Edema: Yes Edema: LUE: 1+, RUE: 1+, LLE: 2+, RLE: 2+ Integumentary: Yes: Venous Stasis Changes Neurological: Yes: Lethargy Labs: CBC, BMP 11/29/18 05:30 11/29/18 05:30 INR, PTT INR 1.13 (0.83-1.09) H 11/23/18 16:40 - ....Imaging Chest X-ray: Report Reviewed Problem List - Problems (1) Hyperkalemia Code(s): E87.5 - HYPERKALEMIA (2) Acute on chronic respiratory failure with hypoxia and hypercapnia Code(s): J96.21 - ACUTE AND CHRONIC RESPIRATORY FAILURE WITH HYPOXIA; J96.22 - ACUTE AND CHRONIC RESPIRATORY FAILURE WITH HYPERCAPNIA (3) Acute renal failure Code(s): N17.9 - ACUTE KIDNEY FAILURE, UNSPECIFIED (4) Alcoholism Code(s): F10.20 - ALCOHOL DEPENDENCE, UNCOMPLICATED (5) Atrial flutter Code(s): I48.92 - UNSPECIFIED ATRIAL FLUTTER (6) Bilateral lower extremity edema Code(s): R60.0 - LOCALIZED EDEMA (7) COPD exacerbation Code(s): J44.1 - CHRONIC OBSTRUCTIVE PULMONARY DISEASE W (ACUTE) EXACERBATION Assessment/Plan Current Medications Generic Name Dose Route Start Last Admin Trade Name Freq PRN Reason Stop Dose Admin Albuterol/Ipratropium 1 amp 11/25/18 20:10 11/29/18 15:46 Duoneb - NEB 1 amp RQID [facility] Administration Apixaban 5 mg 11/24/18 10:00 11/29/18 09:35 Eliquis - PO 5 mg BID [facility] Administration Aspirin 81 mg 11/24/18 10:00 11/29/18 09:34 Asa - PO 81 mg DAILY [facility] Administration Budesonide/Formoterol Fumarate 1 puff 11/24/18 10:00 11/29/18 09:36 Symbicort 160/4.5mcg - IH Not Given DAILY [facility] Diltiazem HCl 60 mg 11/29/18 14:38 11/29/18 17:10 Cardizem - PO 60 mg Q6HPO [facility] Administration Gabapentin 100 mg 11/24/18 10:00 11/29/18 09:35 Neurontin - PO 100 mg DAILY [facility] Administration Propofol 1,000,000 mcg in 100 mls @ 4.011 mls/hr 11/27/18 14:00 11/29/18 14: 00 Diprivan - IVPB 20 mcg/kg/min TITR [facility] 16.044 mls/hr Administration Protocol 5 MCG/KG/MIN Fentanyl 500 mcg/ Dextrose 100 mls @ 10 mls/hr 11/29/18 10:00 11/29/18 10:15 IVPB 50 mcg/hr TITR [facility] 10 mls/hr Administration Protocol 50 MCG/HR Insulin Aspart 1 vial 11/24/18 11:00 11/29/18 16:38 Novolog Vial Sliding Scale - SQ 4 units ACHS [facility] Administration Protocol Insulin Detemir 10 units 11/24/18 22:00 11/28/18 21:38 Levemir Vial SQ 10 units HS [facility] Administration Lorazepam 2 mg 11/28/18 23:19 Ativan Injection - IVPUSH Q4H PRN Anxiety or agitation Methylprednisolone Sodium Succinate 40 mg 11/28/18 10:00 11/29/18 09:36 Solu-Medrol - IVPUSH 40 mg DAILY [facility] Administration Metoprolol Tartrate 5 mg 11/28/18 21:33 11/29/18 02:10 Lopressor Injection - IVPUSH 5 mg Q4H PRN Administration HR >120 Multivitamins/Minerals/Vitamin C 1 tab 11/24/18 10:00 11/29/18 09:34 Tab-A-Vit - PO 1 tab DAILY [facility] Administration Pantoprazole Sodium 20 mg 11/24/18 11:30 11/29/18 09:35 Protonix - PO 20 mg DAILY [facility] Administration Thiamine HCl 200 mg 11/26/18 11:30 11/29/18 09:36 Vitamin B1 Injection - IVPB 200 mg DAILY [facility] Administration Impression 1. PITO 2. hyperkalemia 3. a-flutter 4. resp failure requiring bipap 5. DM 6. HTN 7. active smoker 8. etoh abuse 9. obesity 10. interstitial lung disease on CT scan 11. resp acidosis 12. COPD Plan - urine output is improving - renal function starting to improve - cont with lasix - repeat labs in am - monitor potassium levels - vent support - renal workup in progress - will evaluate for HD daily - pt remains fluid overloaded - will follow closely - pt has very poor respiratory status - discussed with ICU team
[2018-11-29] MEDS: INSULIN (LEVEMIR) 100 UNITS/ML UNITS SQ SCH (21:20)
[2018-11-30] MEDS: dilTIAZem HCL 60 MG TABLET (FP) PO SCH ×5 (00:10→22:59)
[2018-11-30 05:43] LABS: HEMATOCRIT 22.5 % (32.4-45.2); MCH 32.8 pg (25.7-33.7); MCHC 32.4 g/dl (32.0-36.0); MEAN CELL VOLUME 101.4 fl (80-96); MEAN PLT VOLUME 9.3 fl (7.5-11.1); RBC 2.22 M/mm3 (3.60-5.2); RDW 14.9 % (11.6-15.6)
[2018-11-30] MEDS: INSULIN SLIDING SCALE (NOVOLOG) 1 VIAL SQ SCH ×4 (06:26→23:00)
[2018-11-30 06:28] LABS: BASO % 0.3 % (0-2.0); EOS % 0.2 % (0-4.5); HEMATOCRIT 46.2 % (32.4-45.2); HEMOGLOBIN 14.8 GM/dL (10.7-15.3); LYMPH % 5.7 % (8-40); MCH 32.6 pg (25.7-33.7); MEAN CELL VOLUME 101.9 fl (80-96); MEAN PLT VOLUME 9.2 fl (7.5-11.1); NEUT % 85.8 % (42.8-82.8); PLATELET COUNT 133 K/MM3 (134-434); RBC 4.54 M/mm3 (3.60-5.2); RDW 15.4 % (11.6-15.6); WHITE BLOOD COUNT 8.6 K/mm3 (4.0-10.0)
[2018-11-30 06:43] LABS: HEMOGLOBIN 7.3 GM/dL (10.7-15.3)
[2018-11-30 06:44] LABS: PLATELET COUNT 60 K/MM3 (134-434)
[2018-11-30 06:53] LABS: ARTERIAL BLD GAS O2 SATURATION 78.9 % (90-98.9); ARTERIAL BLOOD GAS pH 7.33 (7.35-7.45)
[2018-11-30 07:26] LABS: ALBUMIN 2.5 g/dl (3.4-5.0); ALK PHOS 95 U/L (45-117); ANION GAP 7 MMOL/L (8-16); BILIRUBIN,TOTAL 0.6 mg/dL (0.2-1); CALCIUM 8.5 mg/dL (8.5-10.1); CHLORIDE 98 mmol/L (98-107); CO2 32 mmol/L (21-32); CREATININE 2.4 mg/dL (0.55-1.3); GLUCOSE,RANDOM 229 mg/dL (74-106); POTASSIUM 5.6 mmol/L (3.5-5.1); SGOT/AST 23 U/L (15-37); SGPT/ALT 25 U/L (13-61); SODIUM 138 mmol/L (136-145); TOT PROT 5.6 g/dl (6.4-8.2)
[2018-11-30 07:26] LABS: ALBUMIN 1.1 g/dl (3.4-5.0); ALK PHOS 33 U/L (45-117); ANION GAP 3 MMOL/L (8-16); BILIRUBIN,TOTAL 0.5 mg/dL (0.2-1); CALCIUM 7.4 mg/dL (8.5-10.1); CHLORIDE 102 mmol/L (98-107); CO2 36 mmol/L (21-32); CREATININE 2.6 mg/dL (0.55-1.3); GLUCOSE,RANDOM 233 mg/dL (74-106); POTASSIUM 5.7 mmol/L (3.5-5.1); SGOT/AST 10 U/L (15-37); SGPT/ALT 13 U/L (13-61); SODIUM 141 mmol/L (136-145); TOT PROT 2.2 g/dl (6.4-8.2)
[2018-11-30 07:41] LABS: BLOOD UREA NITROGEN 132 mg/dL (7-18)
[2018-11-30 07:42] LABS: BLOOD UREA NITROGEN 128 mg/dL (7-18)
[2018-11-30] MEDS: ALBUTEROL SO4 2.5/IPRATROPIUM 0.5 INH SOL 3 ML VIAL.NEB. NEB SCH ×4 (08:04→20:44)
--- NOTE | 2018-11-30 08:20 | PN ---
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 (short form) - Note 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: remains intubated and sedated still with intermittent tachycardia Vital Signs Period Temp Pulse Resp BP Sys/Gregorio Pulse Ox Last 24 Hr 98.4 F-98.9 F 92-140 21-94 87-116/54-91 93-97 cor-rrr lungs decreased bs at bases abd soft,nt ext +edema CBC, BMP 11/30/18 06:00 11/30/18 06:00 Microbiology 11/24/18 04:00 Blood - Peripheral Venous Blood Culture - Final NO GROWTH AFTER 5 DAYS INCUBATION 11/24/18 04:00 Blood - Peripheral Venous Blood Culture - Final NO GROWTH AFTER 5 DAYS INCUBATION 11/24/18 12:50 Urine - Urine Clean Catch Urine Culture - Final NO GROWTH OBTAINED 11/24/18 12:25 Urine For Antigen Detection Legionella Antigen - Final 11/24/18 12:25 Urine For Antigen Detection Streptococcus pneumoniae Antigen (M - Final Current Medications Albuterol/Ipratropium (Duoneb -) 1 amp NEB RQID [facility] Last Admin: 11/30/18 08:04 Dose: 1 amp Apixaban (Eliquis -) 5 mg PO BID [facility] Last Admin: 11/29/18 21:23 Dose: 5 mg Aspirin (Asa -) 81 mg PO DAILY [facility] Last Admin: 11/29/18 09:34 Dose: 81 mg Budesonide/Formoterol Fumarate (Symbicort 160/4.5mcg -) 1 puff IH DAILY [facility] Last Admin: 11/29/18 09:36 Dose: Not Given Diltiazem HCl (Cardizem -) 60 mg PO Q6HPO [facility] Last Admin: 11/30/18 05:46 Dose: 60 mg Gabapentin (Neurontin -) 100 mg PO DAILY [facility] Last Admin: 11/29/18 09:35 Dose: 100 mg Propofol (Diprivan -) 1,000,000 mcg in 100 mls @ 4.011 mls/hr IVPB TITR [facility]; Protocol Last Titration: 11/30/18 03:00 Dose: 12 mcg/kg/min, 9.626 mls/hr Fentanyl 500 mcg/ Dextrose 100 mls @ 10 mls/hr IVPB TITR [facility]; Protocol Last Titration: 11/30/18 06:00 Dose: 50 mcg/hr, 10 mls/hr Insulin Aspart (Novolog Vial Sliding Scale -) 1 vial SQ ACHS [facility]; Protocol Last Admin: 11/30/18 06:26 Dose: 6 units Insulin Detemir (Levemir Vial) 10 units SQ HS [facility] Last Admin: 11/29/18 21:20 Dose: 10 units Lorazepam (Ativan Injection -) 2 mg IVPUSH Q4H PRN PRN Reason: Anxiety or agitation Methylprednisolone Sodium Succinate (Solu-Medrol -) 40 mg IVPUSH DAILY [facility] Last Admin: 11/29/18 09:36 Dose: 40 mg Metoprolol Tartrate (Lopressor Injection -) 5 mg IVPUSH Q4H PRN PRN Reason: HR >120 Last Admin: 11/29/18 02:10 Dose: 5 mg Multivitamins/Minerals/Vitamin C (Tab-A-Vit -) 1 tab PO DAILY [facility] Last Admin: 11/29/18 09:34 Dose: 1 tab Pantoprazole Sodium (Protonix -) 20 mg PO DAILY [facility] Last Admin: 11/29/18 09:35 Dose: 20 mg Thiamine HCl (Vitamin B1 Injection -) 200 mg IVPB DAILY [facility] Last Admin: 11/29/18 09:36 Dose: 200 mg a/p acute on chronic respiratory failure volume overload COPD exacerbation mediastinal adenopathy aflutter-rate control thad etoh use stable off antiibotics-afebrile, normal wbc please call back if needed Problem List - Problems (1) Acute respiratory failure with hypoxia and hypercapnia Code(s): J96.01 - ACUTE RESPIRATORY FAILURE WITH HYPOXIA; J96.02 - ACUTE RESPIRATORY FAILURE WITH HYPERCAPNIA (2) Atrial flutter Code(s): I48.92 - UNSPECIFIED ATRIAL FLUTTER (3) Elevated LFTs Code(s): R94.5 - ABNORMAL RESULTS OF LIVER FUNCTION STUDIES (4) Pneumonia Code(s): J18.9 - PNEUMONIA, UNSPECIFIED ORGANISM (5) COPD exacerbation Code(s): J44.1 - CHRONIC OBSTRUCTIVE PULMONARY DISEASE W (ACUTE) EXACERBATION (6) Cellulitis Code(s): L03.90 - CELLULITIS, UNSPECIFIED (7) Morbid obesity Code(s): E66.01 - MORBID (SEVERE) OBESITY DUE TO EXCESS CALORIES
--- NOTE | 2018-11-30 08:44 | PN ---
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 (short form) - Note 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: Intubated still sedated on Cardizem , rate is better controlled Vital Signs - 24 hr 11/29/18 11/29/18 11/29/18 09:00 10:00 10:53 Temperature Pulse Rate 140 H Respiratory 24 H 24 H 24 H Rate Blood Pressure 116/91 O2 Sat by Pulse 93 L Oximetry (%) 11/29/18 11/29/18 11/29/18 12:00 13:21 14:00 Temperature 98.4 F Pulse Rate 140 H 121 H Respiratory 24 H 24 H 24 H Rate Blood Pressure 113/88 101/65 O2 Sat by Pulse Oximetry (%) 11/29/18 11/29/18 11/29/18 15:45 16:00 18:00 Temperature Pulse Rate 140 H 94 H Respiratory 24 H 24 H 94 H Rate Blood Pressure 102/78 113/59 L O2 Sat by Pulse Oximetry (%) 11/29/18 11/29/18 11/29/18 18:28 19:32 20:00 Temperature Pulse Rate 113 H Respiratory 24 H 24 H 24 H Rate Blood Pressure 111/83 O2 Sat by Pulse 93 L Oximetry (%) 11/29/18 11/29/18 11/29/18 20:45 20:47 22:00 Temperature 98.9 F Pulse Rate 112 H 139 H Respiratory 24 H 24 H Rate Blood Pressure 109/76 O2 Sat by Pulse 94 L Oximetry (%) 11/29/18 11/30/18 11/30/18 23:30 00:03 02:07 Temperature Pulse Rate 129 H Respiratory 24 H 24 H 24 H Rate Blood Pressure 92/75 O2 Sat by Pulse Oximetry (%) 11/30/18 11/30/18 11/30/18 02:10 02:22 04:00 Temperature 98.6 F Pulse Rate 104 H 103 H Respiratory 22 H 22 H Rate Blood Pressure 87/54 L 91/54 L O2 Sat by Pulse Oximetry (%) 11/30/18 11/30/18 11/30/18 04:02 06:00 06:35 Temperature 98.9 F Pulse Rate 104 H Respiratory 24 H 21 H 24 H Rate Blood Pressure 107/64 O2 Sat by Pulse Oximetry (%) 11/30/18 11/30/18 06:36 08:03 Temperature Pulse Rate 138 H 92 H Respiratory 24 H Rate Blood Pressure O2 Sat by Pulse 94 L 97 Oximetry (%) Current Medications Generic Name Dose Route Start Last Admin Trade Name Freq PRN Reason Stop Dose Admin Albuterol/Ipratropium 1 amp 11/25/18 20:10 11/30/18 08:04 Duoneb - NEB 1 amp RQID [facility] Administration Apixaban 5 mg 11/24/18 10:00 11/29/18 21:23 Eliquis - PO 5 mg BID [facility] Administration Aspirin 81 mg 11/24/18 10:00 11/29/18 09:34 Asa - PO 81 mg DAILY [facility] Administration Budesonide/Formoterol Fumarate 1 puff 11/24/18 10:00 11/29/18 09:36 Symbicort 160/4.5mcg - IH Not Given DAILY [facility] Diltiazem HCl 60 mg 11/29/18 14:38 11/30/18 05:46 Cardizem - PO 60 mg Q6HPO [facility] Administration Gabapentin 100 mg 11/24/18 10:00 11/29/18 09:35 Neurontin - PO 100 mg DAILY [facility] Administration Propofol 1,000,000 mcg in 100 mls @ 4.011 mls/hr 11/27/18 14:00 11/30/18 03: 00 Diprivan - IVPB 12 mcg/kg/min TITR [facility] 9.626 mls/hr Titration Protocol 5 MCG/KG/MIN Fentanyl 500 mcg/ Dextrose 100 mls @ 10 mls/hr 11/29/18 10:00 11/30/18 06:00 IVPB 50 mcg/hr TITR [facility] 10 mls/hr Titration Protocol 50 MCG/HR Insulin Aspart 1 vial 11/24/18 11:00 11/30/18 06:26 Novolog Vial Sliding Scale - SQ 6 units ACHS [facility] Administration Protocol Insulin Detemir 10 units 11/24/18 22:00 11/29/18 21:20 Levemir Vial SQ 10 units HS [facility] Administration Lorazepam 2 mg 11/28/18 23:19 Ativan Injection - IVPUSH Q4H PRN Anxiety or agitation Methylprednisolone Sodium Succinate 40 mg 11/28/18 10:00 11/29/18 09:36 Solu-Medrol - IVPUSH 40 mg DAILY [facility] Administration Metoprolol Tartrate 5 mg 11/28/18 21:33 12/29/18 02:10 Lopressor Injection - IVPUSH 5 mg Q4H PRN Administration HR >120 Multivitamins/Minerals/Vitamin C 1 tab 11/24/18 10:00 11/29/18 09:34 Tab-A-Vit - PO 1 tab DAILY [facility] Administration Pantoprazole Sodium 20 mg 11/24/18 11:30 11/29/18 09:35 Protonix - PO 20 mg DAILY [facility] Administration Thiamine HCl 200 mg 11/26/18 11:30 11/29/18 09:36 Vitamin B1 Injection - IVPB 200 mg DAILY [facility] Administration Laboratory Results - last 24 hr 11/29/18 11/29/18 11/30/18 10:56 16:36 05:30 WBC 4.0 RBC 2.22 L Hgb 7.3 L Hct 22.5 L D MCV 101.4 H MCH 32.8 MCHC 32.4 RDW 14.9 Plt Count 60 L D MPV 9.3 Absolute Neuts (auto) Neutrophils % Lymphocytes % Monocytes % Eosinophils % Basophils % Nucleated RBC % Puncture Site ABG pH ABG pCO2 at Pt Temp ABG pO2 at Pt Temp ABG HCO3 ABG O2 Sat (Measured) ABG O2 Content ABG Base Excess Mendoza Test O2 Delivery Device Oxygen Flow Rate Vent Mode Vent Rate PEEP Pressure Support Vent Sodium Potassium Chloride Carbon Dioxide Anion Gap BUN Creatinine Creat Clearance w eGFR POC Glucometer 167.61694 230.03594 Random Glucose Calcium Total Bilirubin AST ALT Alkaline Phosphatase Total Protein Albumin 11/30/18 11/30/18 11/30/18 05:30 06:00 06:00 WBC 8.6 RBC 4.54 Hgb 14.8 Hct 46.2 H D MCV 101.9 H MCH 32.6 MCHC 32.0 RDW 15.4 Plt Count 133 L D MPV 9.2 Absolute Neuts (auto) 7.3 Neutrophils % 85.8 H Lymphocytes % 5.7 L D Monocytes % 8.0 Eosinophils % 0.2 D Basophils % 0.3 Nucleated RBC % 0 Puncture Site Right radial ABG pH 7.33 L ABG pCO2 at Pt Temp 67.0 H* ABG pO2 at Pt Temp 50.0 L D ABG HCO3 34.2 H ABG O2 Sat (Measured) 78.9 L ABG O2 Content 16.5 ABG Base Excess 6.0 H Mendoza Test No Result Required. O2 Delivery Device Mech vent Oxygen Flow Rate 40 Vent Mode A/c Vent Rate 24 PEEP 5.0 Pressure Support Vent 400 Sodium 141 Potassium 5.7 H Chloride 102 Carbon Dioxide 36 H Anion Gap 3 L BUN 132 H* Creatinine 2.6 H Creat Clearance w eGFR 19.18 POC Glucometer Random Glucose 233 H Calcium 7.4 L Total Bilirubin 0.5 AST 10 L ALT 13 Alkaline Phosphatase 33 L Total Protein 2.2 L Albumin 1.1 L 11/30/18 06:00 WBC RBC Hgb Hct MCV MCH MCHC RDW Plt Count MPV Absolute Neuts (auto) Neutrophils % Lymphocytes % Monocytes % Eosinophils % Basophils % Nucleated RBC % Puncture Site ABG pH ABG pCO2 at Pt Temp ABG pO2 at Pt Temp ABG HCO3 ABG O2 Sat (Measured) ABG O2 Content ABG Base Excess Mendoza Test O2 Delivery Device Oxygen Flow Rate Vent Mode Vent Rate PEEP Pressure Support Vent Sodium 138 Potassium 5.6 H Chloride 98 Carbon Dioxide 32 Anion Gap 7 L BUN 128 H* Creatinine 2.4 H Creat Clearance w eGFR 21.04 POC Glucometer Random Glucose 229 H Calcium 8.5 Total Bilirubin 0.6 AST 23 ALT 25 Alkaline Phosphatase 95 Total Protein 5.6 L Albumin 2.5 L sedated S1 S2 RRR Lungs decreased breath sounds Abd- soft, NT,obese, ND edema + PLAN In ICU - monitor O2 sat sedated on vent Ativan prn for withdrawal rate is controlled renal function-less off antibiotics continue with meds Problem List - Problems (1) Acute on chronic respiratory failure with hypoxia and hypercapnia Code(s): J96.21 - ACUTE AND CHRONIC RESPIRATORY FAILURE WITH HYPOXIA; J96.22 - ACUTE AND CHRONIC RESPIRATORY FAILURE WITH HYPERCAPNIA (2) Acute renal failure Code(s): N17.9 - ACUTE KIDNEY FAILURE, UNSPECIFIED (3) Acute respiratory failure with hypoxia and hypercapnia Code(s): J96.01 - ACUTE RESPIRATORY FAILURE WITH HYPOXIA; J96.02 - ACUTE RESPIRATORY FAILURE WITH HYPERCAPNIA (4) Alcoholism Code(s): F10.20 - ALCOHOL DEPENDENCE, UNCOMPLICATED (5) Atrial flutter Code(s): I48.92 - UNSPECIFIED ATRIAL FLUTTER (6) Bilateral lower extremity edema Code(s): R60.0 - LOCALIZED EDEMA
[2018-11-30] MEDS: methylPREDNISolone NA SUCC 40 MG/1 ML VIAL IVPUSH SCH (10:11)
[2018-11-30] MEDS: GABAPENTIN 100 MG CAPSULE (FP) PO SCH (10:12)
[2018-11-30] MEDS: ASPIRIN 81 MG CHEWABLE TABLETS PO SCH (10:12)
[2018-11-30] MEDS: MULTIVITAMINS (DAILY MVI) TABLET (FP) PO SCH (10:12)
[2018-11-30] MEDS: BUDESONIDE/FORMETEROL FUMARATE 160/4.5 mcg INHALER IH SCH (10:12)
[2018-11-30] MEDS: APIXABAN 5 MG TABLET PO SCH ×2 (10:12→22:58)
[2018-11-30] MEDS: PANTOPRAZOLE 20 MG TABLET (FP) PO SCH (10:12)
[2018-11-30] MEDS: THIAMINE HCL 200 MG/2 ML VIAL IVPB SCH (10:13)
[2018-11-30] MEDS: FENTANYL INJECTION 500 MCG in DEXTROSE 5%-WATER - 90 ML IVPB SCH ×2 (11:27→18:36)
--- NOTE | 2018-11-30 11:29 | PN ---
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 (short form) - Note 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: Subjective: --No acute overnight events --Patient remains intubated/sedated --atrial flutter with RVR improved on dilt 60 mg q6 hours with HR in 90s-100s Objective: Vital Signs 11/29/18 11/29/18 11/29/18 03:27 04:00 06:00 Temperature 97.7 F Pulse Rate 118 H 137 H Respiratory 24 H 24 H 24 H Rate Blood Pressure 100/71 116/85 O2 Sat by Pulse Oximetry (%) 11/29/18 11/29/18 11/29/18 06:08 08:11 10:53 Temperature Pulse Rate 118 H Respiratory 24 H 24 H 24 H Rate Blood Pressure O2 Sat by Pulse 96 Oximetry (%) Gen: intubated/sedated Cardiac: S1/S2, no murmurs appreciated Pulm: clear breath sounds in anterior lung burgess Ext: WWP. 2+ edema bilaterally. Abnormal Lab Results 11/28/18 11/29/18 11/29/18 18:00 05:30 05:30 Hct 48.5 H MCV 102.4 H MCHC 31.7 L Plt Count 132 L Neutrophils % 84.4 H Lymphocytes % 7.2 L D Potassium 5.6 H 5.5 H Chloride 94 L 96 L Carbon Dioxide 33 H 33 H BUN 128 H* 126 H* Creatinine 2.8 H 2.7 H Random Glucose 229 H 183 H Calcium 8.4 L Phosphorus 6.7 H Magnesium 3.2 H Total Protein 5.8 L Albumin 2.8 L ECG 11/28: atrial flutter with 2:1 conduction Active Medications Albuterol/Ipratropium (Duoneb -) 1 amp NEB RQID [facility] Last Admin: 11/29/18 08:12 Dose: 1 amp Apixaban (Eliquis -) 5 mg PO BID [facility] Last Admin: 11/29/18 09:35 Dose: 5 mg Aspirin (Asa -) 81 mg PO DAILY [facility] Last Admin: 11/29/18 09:34 Dose: 81 mg Budesonide/Formoterol Fumarate (Symbicort 160/4.5mcg -) 1 puff IH DAILY [facility] Last Admin: 11/29/18 09:36 Dose: Not Given Diltiazem HCl (Cardizem -) 30 mg PO Q6HPO [facility] Last Admin: 11/29/18 06:05 Dose: 30 mg Gabapentin (Neurontin -) 100 mg PO DAILY [facility] Last Admin: 11/29/18 09:35 Dose: 100 mg Propofol (Diprivan -) 1,000,000 mcg in 100 mls @ 4.011 mls/hr IVPB TITR [facility]; Protocol Last Titration: 11/28/18 21:27 Dose: 20 mcg/kg/min, 16.044 mls/hr Fentanyl 500 mcg/ Dextrose 100 mls @ 10 mls/hr IVPB TITR [facility]; Protocol Last Admin: 11/29/18 10:15 Dose: 50 mcg/hr, 10 mls/hr Insulin Aspart (Novolog Vial Sliding Scale -) 1 vial SQ ACHS [facility]; Protocol Last Admin: 11/29/18 06:05 Dose: 2 units Insulin Detemir (Levemir Vial) 10 units SQ HS [facility] Last Admin: 11/28/18 21:38 Dose: 10 units Lorazepam (Ativan Injection -) 2 mg IVPUSH Q4H PRN PRN Reason: Anxiety or agitation Methylprednisolone Sodium Succinate (Solu-Medrol -) 40 mg IVPUSH DAILY [facility] Last Admin: 11/29/18 09:36 Dose: 40 mg Metoprolol Tartrate (Lopressor Injection -) 5 mg IVPUSH Q4H PRN PRN Reason: HR >120 Last Admin: 11/29/18 02:10 Dose: 5 mg Multivitamins/Minerals/Vitamin C (Tab-A-Vit -) 1 tab PO DAILY [facility] Last Admin: 11/29/18 09:34 Dose: 1 tab Pantoprazole Sodium (Protonix -) 20 mg PO DAILY [facility] Last Admin: 11/29/18 09:35 Dose: 20 mg Thiamine HCl (Vitamin B1 Injection -) 200 mg IVPB DAILY [facility] Last Admin: 11/29/18 09:36 Dose: 200 mg A/P: 53 YOF with h/o COPD , chronic alcoholism (several glasses of rum daily), DM, HTN, hyperlipidemia, metabolic syndrome admitted with respiratory failure secondary to COPD exacerbation currently intubated/sedated hospital course complicated by atrial flutter with rapid ventricular response. #Atrial flutter with rapid ventricular response; improving on dilt 60mg and with IV diuresis. Will eventually need EP consultation for ablation if deemed appropriate candidate Treatment: Rate: continue dilt 60mg q6hrs (decrease back to 30mg if SBP<85) AC: continue apixaban --continue to monitor on telemetry #Heart Failure; continue IV lasix for goal of net negative 1L daily --strict i/os, daily weights #Hyperkalemia; please ensure K+ <5.5 --appreciate renal recommendations Management of COPD exacerbation, alcohol withdrawal and renal dysfunction per primary team. We will continue to follow. Bird Savage MD
[2018-11-30] MEDS ORDERED: SODIUM POLYSTYRENE SULFONATE 15 GM/60 ML BOTTLE PO ONE (11:57)
--- NOTE | 2018-11-30 12:21 | PN ---
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 (short form) - Note 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: PULM/CCM SUBJECTIVE: Patient seen and examined in the ICU. 24HR: -ongoing diuresis, improved pulm compliance (1300 neg yesterday) -wheezing improved CXR: largely unchanged congestive changes, L base/hemidiaphram opacificaiton, ETT a bit high, will advance OBJECTIVE: Vital Signs Vital Signs Temp 97.8 F 11/30/18 10:00 Pulse 70 11/30/18 10:00 Resp 24 H 11/30/18 10:30 BP 87/61 L 11/30/18 10:00 Pulse Ox 96 11/30/18 10:00 Intake & Output 11/29/18 11/30/18 11/30/18 23:59 11:59 23:59 Intake Total 524.8 560 Output Total 1900 600 Balance -1375.2 -40 Weight 125.282 kg Intake: IV 254.8 270 DIPRIVAN - 1,000,000 mcg 154.8 150 In 100 ml @ 5 MCG/KG/MIN 4.011 mls/hr IVPB TITR [facility] Rx#:[id number] Sublimaze Injection - 500 100 120 Mcg In D5w - 90 ml @ 50 MCG/HR 10 mls/hr IVPB TITR [facility] Rx#:[id number] Tube Feeding 180 240 Tube Irrigant 90 50 Output: Urine 1900 600 Bills 1900 600 Other: Voiding Method Indwelling Catheter Indwelling Catheter Bowel Movement No Weight Measurement Method Built in [facility] Current Medications Albuterol/Ipratropium (Duoneb -) 1 amp NEB RQID [facility] Last Admin: 11/30/18 11:42 Dose: 1 amp Apixaban (Eliquis -) 5 mg PO BID [facility] Last Admin: 11/30/18 10:12 Dose: 5 mg Aspirin (Asa -) 81 mg PO DAILY [facility] Last Admin: 11/30/18 10:12 Dose: 81 mg Budesonide/Formoterol Fumarate (Symbicort 160/4.5mcg -) 1 puff IH DAILY [facility] Last Admin: 11/30/18 10:12 Dose: Not Given Diltiazem HCl (Cardizem -) 60 mg PO Q6HPO [facility] Last Admin: 11/30/18 05:46 Dose: 60 mg Gabapentin (Neurontin -) 100 mg PO DAILY [facility] Last Admin: 11/30/18 10:12 Dose: 100 mg Propofol (Diprivan -) 1,000,000 mcg in 100 mls @ 4.011 mls/hr IVPB TITR [facility]; Protocol Last Titration: 11/30/18 03:00 Dose: 12 mcg/kg/min, 9.626 mls/hr Fentanyl 500 mcg/ Dextrose 100 mls @ 10 mls/hr IVPB TITR [facility]; Protocol Last Admin: 11/30/18 11:27 Dose: 50 mcg/hr, 10 mls/hr Insulin Aspart (Novolog Vial Sliding Scale -) 1 vial SQ ACHS [facility]; Protocol Last Admin: 11/30/18 11:26 Dose: 4 units Insulin Detemir (Levemir Vial) 10 units SQ HS [facility] Last Admin: 11/29/18 21:20 Dose: 10 units Lorazepam (Ativan Injection -) 2 mg IVPUSH Q4H PRN PRN Reason: Anxiety or agitation Methylprednisolone Sodium Succinate (Solu-Medrol -) 40 mg IVPUSH DAILY [facility] Last Admin: 11/30/18 10:11 Dose: 40 mg Metoprolol Tartrate (Lopressor Injection -) 5 mg IVPUSH Q4H PRN PRN Reason: HR >120 Last Admin: 11/29/18 02:10 Dose: 5 mg Multivitamins/Minerals/Vitamin C (Tab-A-Vit -) 1 tab PO DAILY [facility] Last Admin: 11/30/18 10:12 Dose: 1 tab Pantoprazole Sodium (Protonix -) 20 mg PO DAILY [facility] Last Admin: 11/30/18 10:12 Dose: 20 mg Thiamine HCl (Vitamin B1 Injection -) 200 mg IVPB DAILY [facility] Last Admin: 11/30/18 10:13 Dose: 200 mg Gen: intubated sedated Heart: RRR, no m/r/g appreciated Lung: distant breath sounds, scattered wheezes Abd: soft, nontender, +BS Ext: + edema Neuro: withdrawals bilaterally to noxious stimuli CBC,CMP WBC 8.6 K/mm3 (4.0-10.0) 11/30/18 06:00 RBC 4.54 M/mm3 (3.60-5.2) 11/30/18 06:00 Hgb 14.8 GM/dL (10.7-15.3) 11/30/18 06:00 Hct 46.2 % (32.4-45.2) H D 11/30/18 06:00 MCV 101.9 fl (80-96) H 11/30/18 06:00 MCH 32.6 pg (25.7-33.7) 11/30/18 06:00 MCHC 32.0 g/dl (32.0-36.0) 11/30/18 06:00 RDW 15.4 % (11.6-15.6) 11/30/18 06:00 Plt Count 133 K/MM3 (134-434) L D 11/30/18 06:00 MPV 9.2 fl (7.5-11.1) 11/30/18 06:00 Absolute Neuts (auto) 7.3 K/mm3 (1.5-8.0) 11/30/18 06:00 Neutrophils % 85.8 % (42.8-82.8) H 11/30/18 06:00 Lymphocytes % 5.7 % (8-40) L D 11/30/18 06:00 Monocytes % 8.0 % (3.8-10.2) 11/30/18 06:00 Eosinophils % 0.2 % (0-4.5) D 11/30/18 06:00 Basophils % 0.3 % (0-2.0) 11/30/18 06:00 Nucleated RBC % 0 % (0-0) 11/30/18 06:00 Platelet Estimate Adequate 11/23/18 16:40 Platelet Comment 11/23/18 16:40 Polychromasia 1+ 11/23/18 16:40 Poikilocytosis 1+ 11/23/18 16:40 Macrocytosis 2+ 11/23/18 16:40 Ovalocytes 1+ 11/23/18 16:40 Sodium 138 mmol/L (136-145) 11/30/18 06:00 Potassium 5.6 mmol/L (3.5-5.1) H 11/30/18 06:00 Chloride 98 mmol/L (98-107) 11/30/18 06:00 Carbon Dioxide 32 mmol/L (21-32) 11/30/18 06:00 Anion Gap 7 MMOL/L (8-16) L 11/30/18 06:00 BUN 128 mg/dL (7-18) H* 11/30/18 06:00 Creatinine 2.4 mg/dL (0.55-1.3) H 11/30/18 06:00 Creat Clearance w eGFR 21.04 (>60) 11/30/18 06:00 POC Glucometer 230.30482 UNITS (80-120) 11/29/18 16:36 Random Glucose 229 mg/dL (74-106) H 11/30/18 06:00 Hemoglobin A1c % 7.3 % (4.2-6.3) H 11/24/18 09:54 Lactic Acid 1.9 mmol/L (0.4-2.0) 11/24/18 15:28 Calcium 8.5 mg/dL (8.5-10.1) 11/30/18 06:00 Phosphorus 6.7 mg/dL (2.5-4.9) H 11/29/18 05:30 Magnesium 3.2 mg/dL (1.8-2.4) H 11/29/18 05:30 Total Bilirubin 0.6 mg/dL (0.2-1) 11/30/18 06:00 AST 23 U/L (15-37) 11/30/18 06:00 ALT 25 U/L (13-61) 11/30/18 06:00 Alkaline Phosphatase 95 U/L (45-117) 11/30/18 06:00 Creatine Kinase 38 IU/L (26-192) 11/23/18 16:40 Troponin I < 0.02 ng/ml (0.00-0.05) 11/25/18 18:30 B-Natriuretic Peptide 2700.4 pg/ml (5-125) H 11/28/18 05:15 Total Protein 5.6 g/dl (6.4-8.2) L 11/30/18 06:00 Total Protein (PEP) 6.0 g/dL (6.0-8.5) 11/26/18 05:30 Albumin 2.5 g/dl (3.4-5.0) L 11/30/18 06:00 Albumin (PEP) 3.1 gm/dl (2.9-4.4) 11/26/18 05:30 Globulin 2.9 g/dL (2.2-3.9) 11/26/18 05:30 Albumin/Globulin Ratio 1.1 (0.7-1.7) 11/26/18 05:30 Beta Globulins 1.0 gm/dL (0.7-1.3) 11/26/18 05:30 Triglycerides 151 mg/dL (0-150) H 11/24/18 09:54 Cholesterol 168 mg/dL (50-200) 11/24/18 09:54 Total LDL Cholesterol 108 mg/dL (5-100) H 11/24/18 09:54 HDL Cholesterol 31 mg/dL (40-60) L 11/24/18 09:54 TSH 1.03 uIU/ml (0.358-3.74) 11/24/18 09:54 ASSESSMENT AND PLAN: Acute on Chronic Hypoxic and Hypercapneic Respiratory Failure Acute COPD Exacerbation Morbid Obesity Obstructive Sleep Apnea/Obesity Hypoventilation Syndrome Suspect Right Heart Failure Volume Overload Mediastinal Lymphadenopathy Atrial Flutter with RVR Cellulitis Acute Kidney Injury Alcohol Abuse - Current vent settings , wean to PS once wheezing improves. Would consider early trach given obesity, advanced lung disease, TRINH - Cont Medrol, tape once more improved - Inhaled bronchodilators - Titrate Fio2 to keep Spo2 88-92% - Daily assessment for Lasix , goal net negative 500 - monitor urine output, creatinine, renal following, no acute needs for POOL INSTALLER as non-oliguric, adding Kayex for hyperkalemia - Rate control with CCB as per cardiology - Continue anticoagulation, may need to transition to hep gtt, if remains critically ill - Outpatient f/u of mediastinal lymphadenopathy -PPI -on Full a/c Laurent ACNP [id number]
--- NOTE | 2018-11-30 14:36 | PN ---
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, Physician History of Present Illness: Pt seen and examined at bedside. She remains in the ICU. She remains intubated. She is making urine. - Current Medication List Current Medications: Active Medications Albuterol/Ipratropium (Duoneb -) 1 amp NEB RQID [facility] Last Admin: 11/30/18 11:42 Dose: 1 amp Apixaban (Eliquis -) 5 mg PO BID [facility] Last Admin: 11/30/18 10:12 Dose: 5 mg Aspirin (Asa -) 81 mg PO DAILY [facility] Last Admin: 11/30/18 10:12 Dose: 81 mg Budesonide/Formoterol Fumarate (Symbicort 160/4.5mcg -) 1 puff IH DAILY [facility] Last Admin: 11/30/18 10:12 Dose: Not Given Diltiazem HCl (Cardizem -) 60 mg PO Q6HPO [facility] Last Admin: 11/30/18 12:35 Dose: 60 mg Gabapentin (Neurontin -) 100 mg PO DAILY [facility] Last Admin: 11/30/18 10:12 Dose: 100 mg Propofol (Diprivan -) 1,000,000 mcg in 100 mls @ 4.011 mls/hr IVPB TITR [facility]; Protocol Last Titration: 11/30/18 03:00 Dose: 12 mcg/kg/min, 9.626 mls/hr Fentanyl 500 mcg/ Dextrose 100 mls @ 10 mls/hr IVPB TITR [facility]; Protocol Last Admin: 11/30/18 11:27 Dose: 50 mcg/hr, 10 mls/hr Insulin Aspart (Novolog Vial Sliding Scale -) 1 vial SQ ACHS [facility]; Protocol Last Admin: 11/30/18 11:26 Dose: 4 units Insulin Detemir (Levemir Vial) 10 units SQ HS [facility] Last Admin: 11/29/18 21:20 Dose: 10 units Lorazepam (Ativan Injection -) 2 mg IVPUSH Q4H PRN PRN Reason: Anxiety or agitation Methylprednisolone Sodium Succinate (Solu-Medrol -) 40 mg IVPUSH DAILY [facility] Last Admin: 11/30/18 10:11 Dose: 40 mg Metoprolol Tartrate (Lopressor Injection -) 5 mg IVPUSH Q4H PRN PRN Reason: HR >120 Last Admin: 11/29/18 02:10 Dose: 5 mg Multivitamins/Minerals/Vitamin C (Tab-A-Vit -) 1 tab PO DAILY [facility] Last Admin: 11/30/18 10:12 Dose: 1 tab Pantoprazole Sodium (Protonix -) 20 mg PO DAILY [facility] Last Admin: 11/30/18 10:12 Dose: 20 mg Thiamine HCl (Vitamin B1 Injection -) 200 mg IVPB DAILY [facility] Last Admin: 11/30/18 10:13 Dose: 200 mg - Objective Vital Signs: Vital Signs Temperature 98.3 F 11/30/18 14:00 Pulse Rate 73 11/30/18 14:00 Respiratory Rate 21 H 11/30/18 14:00 Blood Pressure 98/62 11/30/18 14:00 O2 Sat by Pulse Oximetry (%) 96 11/30/18 10:00 Constitutional: Yes: Calm Eyes: Yes: Conjunctiva Clear HENT: Yes: Atraumatic Cardiovascular: Yes: S1, S2 Respiratory: Yes: Mechanically Ventilated Gastrointestinal: Yes: Soft, Abdomen, Obese Genitourinary: Yes: Bills Present Edema: Yes Edema: LUE: Trace, RUE: Trace, LLE: 2+, RLE: 2+ Neurological: Yes: Lethargy Labs: CBC, BMP 11/30/18 06:00 11/30/18 06:00 INR, PTT INR 1.13 (0.83-1.09) H 11/23/18 16:40 - ....Imaging Chest X-ray: Report Reviewed Problem List - Problems (1) Hyperkalemia Code(s): E87.5 - HYPERKALEMIA (2) Acute on chronic respiratory failure with hypoxia and hypercapnia Code(s): J96.21 - ACUTE AND CHRONIC RESPIRATORY FAILURE WITH HYPOXIA; J96.22 - ACUTE AND CHRONIC RESPIRATORY FAILURE WITH HYPERCAPNIA (3) Acute renal failure Code(s): N17.9 - ACUTE KIDNEY FAILURE, UNSPECIFIED (4) Alcoholism Code(s): F10.20 - ALCOHOL DEPENDENCE, UNCOMPLICATED (5) Atrial flutter Code(s): I48.92 - UNSPECIFIED ATRIAL FLUTTER (6) Bilateral lower extremity edema Code(s): R60.0 - LOCALIZED EDEMA (7) COPD exacerbation Code(s): J44.1 - CHRONIC OBSTRUCTIVE PULMONARY DISEASE W (ACUTE) EXACERBATION Assessment/Plan Current Medications Generic Name Dose Route Start Last Admin Trade Name Freq PRN Reason Stop Dose Admin Albuterol/Ipratropium 1 amp 11/25/18 20:10 11/30/18 11:42 Duoneb - NEB 1 amp RQID [facility] Administration Apixaban 5 mg 11/24/18 10:00 11/30/18 10:12 Eliquis - PO 5 mg BID [facility] Administration Aspirin 81 mg 11/24/18 10:00 11/30/18 10:12 Asa - PO 81 mg DAILY [facility] Administration Budesonide/Formoterol Fumarate 1 puff 11/24/18 10:00 11/30/18 10:12 Symbicort 160/4.5mcg - IH Not Given DAILY [facility] Diltiazem HCl 60 mg 11/29/18 14:38 11/30/18 12:35 Cardizem - PO 60 mg Q6HPO [facility] Administration Gabapentin 100 mg 11/24/18 10:00 11/30/18 10:12 Neurontin - PO 100 mg DAILY [facility] Administration Propofol 1,000,000 mcg in 100 mls @ 4.011 mls/hr 11/27/18 14:00 11/30/18 03: 00 Diprivan - IVPB 12 mcg/kg/min TITR [facility] 9.626 mls/hr Titration Protocol 5 MCG/KG/MIN Fentanyl 500 mcg/ Dextrose 100 mls @ 10 mls/hr 11/29/18 10:00 11/30/18 11:27 IVPB 50 mcg/hr TITR [facility] 10 mls/hr Administration Protocol 50 MCG/HR Insulin Aspart 1 vial 11/24/18 11:00 11/30/18 11:26 Novolog Vial Sliding Scale - SQ 4 units ACHS [facility] Administration Protocol Insulin Detemir 10 units 11/24/18 22:00 11/29/18 21:20 Levemir Vial SQ 10 units HS [facility] Administration Lorazepam 2 mg 11/28/18 23:19 Ativan Injection - IVPUSH Q4H PRN Anxiety or agitation Methylprednisolone Sodium Succinate 40 mg 11/28/18 10:00 11/30/18 10:11 Solu-Medrol - IVPUSH 40 mg DAILY [facility] Administration Metoprolol Tartrate 5 mg 11/28/18 21:33 11/29/18 02:10 Lopressor Injection - IVPUSH 5 mg Q4H PRN Administration HR >120 Multivitamins/Minerals/Vitamin C 1 tab 11/24/18 10:00 11/30/18 10:12 Tab-A-Vit - PO 1 tab DAILY [facility] Administration Pantoprazole Sodium 20 mg 11/24/18 11:30 11/30/18 10:12 Protonix - PO 20 mg DAILY [facility] Administration Thiamine HCl 200 mg 11/26/18 11:30 11/30/18 10:13 Vitamin B1 Injection - IVPB 200 mg DAILY [facility] Administration Impression 1. PITO 2. hyperkalemia 3. a-flutter 4. resp failure requiring bipap 5. DM 6. HTN 7. active smoker 8. etoh abuse 9. obesity 10. interstitial lung disease on CT scan 11. resp acidosis 12. COPD Plan - cont with lasix - keep negative balance - renal function is improving - treat potassium medically - discussed with ICU team - helenro for tube feeds - vent support - renal workup in progress - will evaluate for HD daily - pt remains fluid overloaded - will follow closely
[2018-11-30] MEDS ORDERED: FUROSEMIDE 40 MG/4 ML INJECTABLE VIAL IVPUSH ONE (15:00)
[2018-11-30] MEDS: PROPOFOL 1,000,000 MCG/100 ML VIAL IVPB SCH (16:05)
[2018-11-30] MEDS: METOPROLOL TARTRATE 5 MG/5 ML VIAL IVPUSH PRN (16:13)
[2018-11-30] MEDS ORDERED: fentaNYL CITRATE 250 MCG/5 ML VIAL ONE (16:51)
[2018-11-30] MEDS: INSULIN (LEVEMIR) 100 UNITS/ML UNITS SQ SCH (22:52)
[2018-12-01] MEDS ORDERED: fentaNYL CITRATE 250 MCG/5 ML VIAL ONE (01:51)
[2018-12-01] MEDS: dilTIAZem HCL 60 MG TABLET (FP) PO SCH (05:56)
[2018-12-01] MEDS: INSULIN SLIDING SCALE (NOVOLOG) 1 VIAL SQ SCH ×4 (06:01→21:30)
--- NOTE | 2018-12-01 06:57 | PN ---
Physical Exam: SUBJECTIVE: Patient seen and examined. Denies pain. OBJECTIVE: Vital Signs Period Temp Pulse Resp BP Sys/Gregorio Pulse Ox Last 24 Hr 97.8 F-99.4 F 70-140 21-24 83-105/53-72 95-97 GENERAL: Awake, alert, following 2-step commands HEAD: NC/AT EYES: PERRL, EOMI ENT: Moist mucous membranes. Cyanosis improving. ETT and OGT removed NECK: supple LUNGS: b/l coarse breath sounds throughout with good air entry HEART: A-fib, tachycardic, no murmur appreciated ABDOMEN: Soft, protuberant, edematous, mild distended, normoactive bowel sounds BUE: B/l hand swelling, not likely cellulitis, sensation and ROM intact LOWER EXTREMITIES: BLE erythema to knee; no fluctuance; 2+ pulses, warm, well- perfused. +1 peripheral edema NEUROLOGICAL: no focal deficit. follows 2-step commands. Active Medications Generic Name Dose Route Start Last Admin Trade Name Freq PRN Reason Stop Dose Admin Albuterol/Ipratropium 1 amp 11/25/18 20:10 11/30/18 20:44 Duoneb - NEB 1 amp RQID [facility] Administration Apixaban 5 mg 11/24/18 10:00 11/30/18 22:58 Eliquis - PO 5 mg BID [facility] Administration Aspirin 81 mg 11/24/18 10:00 11/30/18 10:12 Asa - PO 81 mg DAILY [facility] Administration Budesonide/Formoterol Fumarate 1 puff 11/24/18 10:00 11/30/18 10:12 Symbicort 160/4.5mcg - IH Not Given DAILY [facility] Diltiazem HCl 60 mg 11/29/18 14:38 12/01/18 05:56 Cardizem - PO 60 mg Q6HPO [facility] Administration Gabapentin 100 mg 11/24/18 10:00 11/30/18 10:12 Neurontin - PO 100 mg DAILY [facility] Administration Propofol 1,000,000 mcg in 100 mls @ 4.011 mls/hr 11/27/18 14:00 11/30/18 16: 05 Diprivan - IVPB 12 mcg/kg/min TITR [facility] 9.626 mls/hr Administration Protocol 5 MCG/KG/MIN Fentanyl 500 mcg/ Dextrose 100 mls @ 10 mls/hr 11/29/18 10:00 11/30/18 18:36 IVPB 50 mcg/hr TITR [facility] 10 mls/hr Administration Protocol 50 MCG/HR Insulin Aspart 1 vial 11/24/18 11:00 12/01/18 06:01 Novolog Vial Sliding Scale - SQ 6 units ACHS [facility] Administration Protocol Insulin Detemir 10 units 11/24/18 22:00 11/30/18 22:52 Levemir Vial SQ 10 units HS [facility] Administration Lorazepam 2 mg 11/28/18 23:19 Ativan Injection - IVPUSH Q4H PRN Anxiety or agitation Methylprednisolone Sodium Succinate 40 mg 11/28/18 10:00 11/30/18 10:11 Solu-Medrol - IVPUSH 40 mg DAILY [facility] Administration Metoprolol Tartrate 5 mg 11/28/18 21:33 11/30/18 16:13 Lopressor Injection - IVPUSH 5 mg Q4H PRN Administration HR >120 Multivitamins/Minerals/Vitamin C 1 tab 11/24/18 10:00 11/30/18 10:12 Tab-A-Vit - PO 1 tab DAILY [facility] Administration Pantoprazole Sodium 20 mg 11/24/18 11:30 11/30/18 10:12 Protonix - PO 20 mg DAILY [facility] Administration Thiamine HCl 200 mg 11/26/18 11:30 11/30/18 10:13 Vitamin B1 Injection - IVPB 200 mg DAILY [facility] Administration ASSESSMENT/PLAN: The pt is a 53F with a PMH of COPD, acute/chronic EtOH abuse (several glasses of rum daily), long-term tobacco abuse, TRINH, morbid obesity, DM, HTN, hyperlipidemia, cellulites, metabolic syndrome who was transferred to ICU due to worsening respiratory failure 11/27 - Patient w/ worsening mentation and respiratory status throughout the morning. Worsening repeat ABG. Decision was made to intubate for hypercapnic/ hypoxic respiratory failure 11/28 - Vented, ABG improving 12/01 - Extubated to NC. OGT D/C'ed. Neuro ETOH abuse , dependence -Ativan 2mg IV PRN for withdrawal symptoms Tobacco abuse -Educated -Nicotine patch CV Cardiology Dr Ronny Caceres -Cont ASA , Apixaban -Cardizim 25 IV push PRN HTN -Antihypertensives held 2/2 relative hypotension Hypervolemia w/ pulmonary congestion -Lasix 40mg IV PRN Pulm Acute hypercapnic respiratory failure due to pulmonary edema can Not R/O CHF vs copd exacerbation ILD new diagnosed on CT -Continue symbicort -Continue broncodilators -s/p intubation 11/27/2018 for acute decompensation --Extubated 12/01/2018 GI Nutrition -OGT removed, will hold feeds for now -Plan for swallow eval tomorrow GI Ppx -Protonix 40 PO daily PITO -IVF held 2/2 respiratory edema/volume overload -Avoid nephrotoxic agents -Nephrology consulted Hyperkalemia -Kayexalate 30mg PO once Heme DVT Ppx: scds , Apixaban , ASA ID BLE Cellulitis -Not likely infectious in etiology -s/p Abx course -no further abx at this time Endo DM -BGM ACHS -ISS Morbid obesity -Educated about low calories diet , losing weight , daily exercise LTD Bills- 11/25/2018 Dispo: Patient continues to require ICU level of care. Visit type - Emergency Visit Emergency Visit: Yes ED Registration Date: 11/23/18 Care time: The patient presented to the Emergency Department on the above date and was hospitalized for further evaluation of their emergent condition. - New Patient This patient is new to me today: No - Critical Care Critical Care patient: Yes Total Critical Care Time (in minutes): 35 Critical Care Statement: The care of this patient involved high complexity decision making to prevent further life threatening deterioration of the patient 's condition and/or to evaluate & treat vital organ system(s) failure or risk of failure.
[2018-12-01] MEDS: FENTANYL INJECTION 500 MCG in DEXTROSE 5%-WATER - 90 ML IVPB SCH ×2 (07:00→12:41)
[2018-12-01] MEDS: ALBUTEROL SO4 2.5/IPRATROPIUM 0.5 INH SOL 3 ML VIAL.NEB. NEB SCH ×4 (07:50→21:20)
[2018-12-01] MEDS: PROPOFOL 1,000,000 MCG/100 ML VIAL IVPB SCH (07:55)
[2018-12-01 08:30] LABS: BASO % 0.4 % (0-2.0); EOS % 0.3 % (0-4.5); HEMATOCRIT 45.6 % (32.4-45.2); HEMOGLOBIN 14.4 GM/dL (10.7-15.3); LYMPH % 4.8 % (8-40); MCH 32.3 pg (25.7-33.7); MCHC 31.5 g/dl (32.0-36.0); MEAN CELL VOLUME 102.7 fl (80-96); MEAN PLT VOLUME 9.5 fl (7.5-11.1); MONO % 8.4 % (3.8-10.2); NEUT % 86.1 % (42.8-82.8); PLATELET COUNT 134 K/MM3 (134-434); RBC 4.44 M/mm3 (3.60-5.2); RDW 15.5 % (11.6-15.6); WHITE BLOOD COUNT 8.5 K/mm3 (4.0-10.0)
[2018-12-01 09:05] LABS: ARTERIAL BLD GAS O2 SATURATION 96.1 % (90-98.9); ARTERIAL BLOOD GAS PO2 85.2 mmHg (80-100)
[2018-12-01 09:08] LABS: ALLENS TEST POSITIVE
[2018-12-01 09:09] LABS: ALBUMIN 2.6 g/dl (3.4-5.0); ALK PHOS 89 U/L (45-117); ANION GAP 8 MMOL/L (8-16); BILIRUBIN,TOTAL 0.4 mg/dL (0.2-1); CHLORIDE 102 mmol/L (98-107); CO2 34 mmol/L (21-32); CREATININE 2.5 mg/dL (0.55-1.3); GLUCOSE,RANDOM 214 mg/dL (74-106); MAGNESIUM 3.1 mg/dL (1.8-2.4); PHOSPHOROUS 6.9 mg/dL (2.5-4.9); POTASSIUM 5.1 mmol/L (3.5-5.1); SGOT/AST 9 U/L (15-37); SGPT/ALT 19 U/L (13-61); SODIUM 144 mmol/L (136-145); TOT PROT 5.6 g/dl (6.4-8.2)
[2018-12-01] MEDS: METOPROLOL TARTRATE 5 MG/5 ML VIAL IVPUSH PRN (09:15)
[2018-12-01] MEDS: PANTOPRAZOLE 20 MG TABLET (FP) PO SCH (09:21)
[2018-12-01] MEDS: GABAPENTIN 100 MG CAPSULE (FP) PO SCH (09:21)
[2018-12-01] MEDS: APIXABAN 5 MG TABLET PO SCH ×2 (09:21→21:29)
[2018-12-01] MEDS: ASPIRIN 81 MG CHEWABLE TABLETS PO SCH (09:21)
[2018-12-01] MEDS: MULTIVITAMINS (DAILY MVI) TABLET (FP) PO SCH (09:21)
[2018-12-01] MEDS: methylPREDNISolone NA SUCC 40 MG/1 ML VIAL IVPUSH SCH (09:22)
[2018-12-01] MEDS: THIAMINE HCL 200 MG/2 ML VIAL IVPB SCH (09:22)
[2018-12-01] MEDS: BUDESONIDE/FORMETEROL FUMARATE 160/4.5 mcg INHALER IH SCH (09:22)
[2018-12-01 09:46] LABS: BLOOD UREA NITROGEN 137 mg/dL (7-18)
--- NOTE | 2018-12-01 10:24 | PN ---
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, Physician History of Present Illness: pt seen/ examined in icu remains intubated chart reviewed all f/u noted off sedation awake passing urine off abx. - Current Medication List Current Medications: Active Medications Albuterol/Ipratropium (Duoneb -) 1 amp NEB RQID [facility] Last Admin: 12/01/18 07:50 Dose: 1 amp Apixaban (Eliquis -) 5 mg PO BID [facility] Last Admin: 12/01/18 09:21 Dose: 5 mg Aspirin (Asa -) 81 mg PO DAILY [facility] Last Admin: 12/01/18 09:21 Dose: 81 mg Budesonide/Formoterol Fumarate (Symbicort 160/4.5mcg -) 1 puff IH DAILY [facility] Last Admin: 12/01/18 09:22 Dose: Not Given Diltiazem HCl (Cardizem -) 60 mg PO Q6HPO [facility] Last Admin: 12/01/18 05:56 Dose: 60 mg Gabapentin (Neurontin -) 100 mg PO DAILY [facility] Last Admin: 12/01/18 09:21 Dose: 100 mg Propofol (Diprivan -) 1,000,000 mcg in 100 mls @ 4.011 mls/hr IVPB TITR [facility]; Protocol Last Titration: 12/01/18 08:45 Dose: 0 mcg/kg/min, 0 mls/hr Fentanyl 500 mcg/ Dextrose 100 mls @ 10 mls/hr IVPB TITR [facility]; Protocol Last Admin: 12/01/18 07:00 Dose: 25 mcg/hr, 5 mls/hr Insulin Aspart (Novolog Vial Sliding Scale -) 1 vial SQ ACHS [facility]; Protocol Last Admin: 12/01/18 06:01 Dose: 6 units Insulin Detemir (Levemir Vial) 10 units SQ HS [facility] Last Admin: 11/30/18 22:52 Dose: 10 units Lorazepam (Ativan Injection -) 2 mg IVPUSH Q4H PRN PRN Reason: Anxiety or agitation Methylprednisolone Sodium Succinate (Solu-Medrol -) 40 mg IVPUSH DAILY [facility] Last Admin: 12/01/18 09:22 Dose: 40 mg Metoprolol Tartrate (Lopressor Injection -) 5 mg IVPUSH Q4H PRN PRN Reason: HR >120 Last Admin: 12/01/18 09:15 Dose: 5 mg Multivitamins/Minerals/Vitamin C (Tab-A-Vit -) 1 tab PO DAILY [facility] Last Admin: 12/01/18 09:21 Dose: 1 tab Pantoprazole Sodium (Protonix -) 20 mg PO DAILY [facility] Last Admin: 12/01/18 09:21 Dose: 20 mg Thiamine HCl (Vitamin B1 Injection -) 200 mg IVPB DAILY [facility] Last Admin: 12/01/18 09:22 Dose: 200 mg - Objective Vital Signs: Vital Signs Temperature 99.2 F 12/01/18 02:00 Pulse Rate 143 H 12/01/18 09:15 Respiratory Rate 24 H 12/01/18 09:02 Blood Pressure 123/74 12/01/18 09:15 O2 Sat by Pulse Oximetry (%) 98 12/01/18 09:00 Constitutional: Yes: Other (orally intubated/ ngt +) Eyes: Yes: Conjunctiva Clear Neck: Yes: Supple Cardiovascular: Yes: Tachycardia Respiratory: Yes: Diminished Gastrointestinal: Yes: Soft, Abdomen, Obese Edema: LLE: 2+, RLE: 2+ Neurological: Yes: Other (awake) Labs: CBC, BMP 12/01/18 08:20 12/01/18 08:20 INR, PTT INR 1.13 (0.83-1.09) H 11/23/18 16:40 - ....Imaging Chest X-ray: Report Reviewed Problem List - Problems (1) Acute respiratory failure with hypoxia and hypercapnia Code(s): J96.01 - ACUTE RESPIRATORY FAILURE WITH HYPOXIA; J96.02 - ACUTE RESPIRATORY FAILURE WITH HYPERCAPNIA (2) Atrial flutter Code(s): I48.92 - UNSPECIFIED ATRIAL FLUTTER (3) Bilateral lower extremity edema Code(s): R60.0 - LOCALIZED EDEMA (4) COPD exacerbation Code(s): J44.1 - CHRONIC OBSTRUCTIVE PULMONARY DISEASE W (ACUTE) EXACERBATION (5) Diabetes Code(s): E11.9 - TYPE 2 DIABETES MELLITUS WITHOUT COMPLICATIONS (6) Elevated LFTs Code(s): R94.5 - ABNORMAL RESULTS OF LIVER FUNCTION STUDIES (7) Hyperlipidemia Code(s): E78.5 - HYPERLIPIDEMIA, UNSPECIFIED (8) Morbid obesity Code(s): E66.01 - MORBID (SEVERE) OBESITY DUE TO EXCESS CALORIES (9) Acute renal failure Code(s): N17.9 - ACUTE KIDNEY FAILURE, UNSPECIFIED (10) Pulmonary hypertension Code(s): I27.20 - PULMONARY HYPERTENSION, UNSPECIFIED Assessment/Plan Monitor in icu Meds reviewed continue present care weaning as tolerated monitor labs critical care following Condition stable but remains critical discussed with nursing staff will follow cc time approx 25 min
[2018-12-01] MEDS ORDERED: FUROSEMIDE 40 MG/4 ML INJECTABLE VIAL IVPUSH ONE (10:42)
[2018-12-01] MEDS ORDERED: FUROSEMIDE 40 MG/4 ML INJECTABLE VIAL ONE (10:46)
--- NOTE | 2018-12-01 12:01 | PN ---
Teaching Attending Note Name of Resident: Heriberto Urena ATTENDING PHYSICIAN STATEMENT I saw and evaluated the patient. I reviewed the resident's note and discussed the case with the resident. I agree with the resident's findings and plan as documented. SUBJECTIVE: Patient seen and examined in the ICU. Intubated and lightly sedated. AC Mode of vent, 45% FiO2. No pressors. CXR: no gross change in LLL opacification / increased vascular markings OBJECTIVE: Intake & Output 11/28/18 11/29/18 11/30/18 12/01/18 23:59 23:59 23:59 23:59 Intake Total 402 756.8 1405.2 676.9 Output Total 1575 2400 1400 1200 Balance -1173 -1643.2 5.2 -523.1 Weight 275 lb 3.2 oz 275 lb 9.245 oz 276 lb 3.2 oz 276 lb 7.355 oz Last Vital Signs Temp Pulse Resp BP Pulse Ox 98.6 F 141 H 16 130/88 92 L 12/01/18 10:00 12/01/18 10:00 12/01/18 10:00 12/01/18 10:00 12/01/18 11:30 Active Medications Albuterol/Ipratropium (Duoneb -) 1 amp NEB RQID [facility] Last Admin: 12/01/18 07:50 Dose: 1 amp Apixaban (Eliquis -) 5 mg PO BID [facility] Last Admin: 12/01/18 09:21 Dose: 5 mg Aspirin (Asa -) 81 mg PO DAILY [facility] Last Admin: 12/01/18 09:21 Dose: 81 mg Budesonide/Formoterol Fumarate (Symbicort 160/4.5mcg -) 1 puff IH DAILY [facility] Last Admin: 12/01/18 09:22 Dose: Not Given Gabapentin (Neurontin -) 100 mg PO DAILY [facility] Last Admin: 12/01/18 09:21 Dose: 100 mg Diltiazem HCl 125 mg/ Sodium (Chloride) 125 mls @ 7 mls/hr IVPB TITR [facility]; Protocol Insulin Aspart (Novolog Vial Sliding Scale -) 1 vial SQ ACHS [facility]; Protocol Last Admin: 12/01/18 06:01 Dose: 6 units Insulin Detemir (Levemir Vial) 10 units SQ HS [facility] Last Admin: 11/30/18 22:52 Dose: 10 units Lorazepam (Ativan Injection -) 2 mg IVPUSH Q4H PRN PRN Reason: Anxiety or agitation Methylprednisolone Sodium Succinate (Solu-Medrol -) 40 mg IVPUSH DAILY [facility] Last Admin: 12/01/18 09:22 Dose: 40 mg Metoprolol Tartrate (Lopressor Injection -) 5 mg IVPUSH Q4H PRN PRN Reason: HR >120 Last Admin: 12/01/18 09:15 Dose: 5 mg Multivitamins/Minerals/Vitamin C (Tab-A-Vit -) 1 tab PO DAILY [facility] Last Admin: 12/01/18 09:21 Dose: 1 tab Pantoprazole Sodium (Protonix -) 20 mg PO DAILY [facility] Last Admin: 12/01/18 09:21 Dose: 20 mg Thiamine HCl (Vitamin B1 Injection -) 200 mg IVPB DAILY [facility] Last Admin: 12/01/18 09:22 Dose: 200 mg Gen: Intubated and sedated Heart: RRR Lung: distant breath sounds Abd: soft, nontender Ext: + edema Laboratory Results - last 24 hr 11/29/18 11/30/18 11/30/18 20:51 05:23 11:25 WBC RBC Hgb Hct MCV MCH MCHC RDW Plt Count MPV Absolute Neuts (auto) Neutrophils % Lymphocytes % Monocytes % Eosinophils % Basophils % Nucleated RBC % Anticoagulation Therapy Puncture Site ABG pH ABG pCO2 at Pt Temp ABG pO2 at Pt Temp ABG HCO3 ABG O2 Sat (Measured) ABG O2 Content ABG Base Excess Mendoza Test O2 Delivery Device Oxygen Flow Rate Vent Mode Vent Rate Mechanical Rate Pressure Support Vent Sodium Potassium Chloride Carbon Dioxide Anion Gap BUN Creatinine Creat Clearance w eGFR POC Glucometer 273.03167 294.29774 [phone] Random Glucose Calcium Phosphorus Magnesium Total Bilirubin AST ALT Alkaline Phosphatase Total Protein Albumin 11/30/18 11/30/18 12/01/18 16:37 23:44 08:20 WBC 8.5 RBC 4.44 Hgb 14.4 Hct 45.6 H MCV 102.7 H MCH 32.3 MCHC 31.5 L RDW 15.5 Plt Count 134 MPV 9.5 Absolute Neuts (auto) 7.3 Neutrophils % 86.1 H Lymphocytes % 4.8 L Monocytes % 8.4 Eosinophils % 0.3 Basophils % 0.4 Nucleated RBC % 0 Anticoagulation Therapy Puncture Site ABG pH ABG pCO2 at Pt Temp ABG pO2 at Pt Temp ABG HCO3 ABG O2 Sat (Measured) ABG O2 Content ABG Base Excess Mendoza Test O2 Delivery Device Oxygen Flow Rate Vent Mode Vent Rate Mechanical Rate Pressure Support Vent Sodium Potassium Chloride Carbon Dioxide Anion Gap BUN Creatinine Creat Clearance w eGFR POC Glucometer 250.31316 [phone] Random Glucose Calcium Phosphorus Magnesium Total Bilirubin AST ALT Alkaline Phosphatase Total Protein Albumin 12/01/18 12/01/18 08:20 08:55 WBC RBC Hgb Hct MCV MCH MCHC RDW Plt Count MPV Absolute Neuts (auto) Neutrophils % Lymphocytes % Monocytes % Eosinophils % Basophils % Nucleated RBC % Anticoagulation Therapy No Result Required. Puncture Site Right radial ABG pH 7.40 ABG pCO2 at Pt Temp 57.0 H ABG pO2 at Pt Temp 85.2 D ABG HCO3 34.4 H ABG O2 Sat (Measured) 96.1 ABG O2 Content 18.9 ABG Base Excess 8.0 H Mendoza Test Positive O2 Delivery Device No Result Required. Oxygen Flow Rate Yes Vent Mode No Result Required. Vent Rate No Result Required. Mechanical Rate No Result Required. Pressure Support Vent No Result Required. Sodium 144 Potassium 5.1 Chloride 102 Carbon Dioxide 34 H Anion Gap 8 BUN 137 H* Creatinine 2.5 H Creat Clearance w eGFR 20.07 POC Glucometer Random Glucose 214 H Calcium 8.0 L Phosphorus 6.9 H Magnesium 3.1 H Total Bilirubin 0.4 AST 9 L ALT 19 Alkaline Phosphatase 89 Total Protein 5.6 L Albumin 2.6 L ASSESSMENT AND PLAN: Acute on Chronic Hypoxic and Hypercapneic Respiratory Failure Acute COPD Exacerbation Morbid Obesity Obstructive Sleep Apnea/Obesity Hypoventilation Syndrome Suspect Right Heart Failure Volume Overload Mediastinal Lymphadenopathy Atrial Flutter with RVR Cellulitis Acute Kidney Injury Alcohol Abuse - Wean to extubate - Medrol - Inhaled bronchodilators - Lasix today - Off ABX - Monitor urine output, creatinine - Rate control - Continue anticoagulation - Outpatient f/u of mediastinal lymphadenopathy - ICU monitoring Dr Dixon Critical care time spent in reviewing chart, evaluating patient and formulating plan 35 min
[2018-12-01] MEDS ORDERED: dilTIAZem HCL 25 MG/5 ML - 5 ML VIAL ONE (12:02)
[2018-12-01] MEDS: DILTIAZEM INJECTION 125 MG in SODIUM CHLORIDE 100 ML IVPB SCH (12:04)
--- NOTE | 2018-12-01 14:43 | PN ---
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, Physician Chief Complaint: Pt was extubated today; on pressure mask; lethargic History of Present Illness: 53 YO white woman with h/o COPD (placed on steroid course 2 days ago without relief) acute/chronic alcoholism (several glasses of rum daily), long-term cigarette smoker, sleep apnea, morbid obesity, DM, HTN, hyperlipidemia, chronic erythema of LEs with hx cellulitis, metabolic syndrome, who p/w SOB and wheezing similar to her prior COPD exacerbation. She additionally notes awakening in the middle of the night last night with visual hallucinations. She additionally notes abdominal swelling recently, believes she has an abdominal infection but does not know what kind. Denies h/o heart arrhythmia. She has noticed her lips are more blue than normal. - Current Medication List Current Medications: Active Medications Albuterol/Ipratropium (Duoneb -) 1 amp NEB RQID [facility] Last Admin: 12/01/18 11:20 Dose: 1 amp Apixaban (Eliquis -) 5 mg PO BID [facility] Last Admin: 12/01/18 09:21 Dose: 5 mg Aspirin (Asa -) 81 mg PO DAILY [facility] Last Admin: 12/01/18 09:21 Dose: 81 mg Budesonide/Formoterol Fumarate (Symbicort 160/4.5mcg -) 1 puff IH DAILY [facility] Last Admin: 12/01/18 09:22 Dose: Not Given Gabapentin (Neurontin -) 100 mg PO DAILY [facility] Last Admin: 12/01/18 09:21 Dose: 100 mg Diltiazem HCl 125 mg/ Sodium (Chloride) 125 mls @ 7 mls/hr IVPB TITR [facility]; Protocol Last Titration: 12/01/18 13:53 Dose: 10 mg/hr, 10 mls/hr Insulin Aspart (Novolog Vial Sliding Scale -) 1 vial SQ ACHS [facility]; Protocol Last Admin: 12/01/18 12:12 Dose: 6 units Insulin Detemir (Levemir Vial) 10 units SQ HS [facility] Last Admin: 11/30/18 22:52 Dose: 10 units Lorazepam (Ativan Injection -) 2 mg IVPUSH Q4H PRN PRN Reason: Anxiety or agitation Methylprednisolone Sodium Succinate (Solu-Medrol -) 40 mg IVPUSH DAILY [facility] Last Admin: 12/01/18 09:22 Dose: 40 mg Metoprolol Tartrate (Lopressor Injection -) 5 mg IVPUSH Q4H PRN PRN Reason: HR >120 Last Admin: 12/01/18 09:15 Dose: 5 mg Multivitamins/Minerals/Vitamin C (Tab-A-Vit -) 1 tab PO DAILY [facility] Last Admin: 12/01/18 09:21 Dose: 1 tab Pantoprazole Sodium (Protonix -) 20 mg PO DAILY [facility] Last Admin: 12/01/18 09:21 Dose: 20 mg Thiamine HCl (Vitamin B1 Injection -) 200 mg IVPB DAILY [facility] Last Admin: 12/01/18 09:22 Dose: 200 mg - Objective Vital Signs: Vital Signs Temperature 98.7 F 12/01/18 13:57 Pulse Rate 142 H 12/01/18 13:57 Respiratory Rate 14 12/01/18 13:57 Blood Pressure 125/67 12/01/18 13:57 O2 Sat by Pulse Oximetry (%) 40 L 12/01/18 11:30 Constitutional: Yes: Obese Eyes: Yes: WNL HENT: Yes: Other Neck: No: Rigid Cardiovascular: Yes: Tachycardia, S1 (varies in intensity), S2 Respiratory: Yes: Diminished, Poor Air Entry Gastrointestinal: Yes: Soft, Abdomen, Obese Genitourinary: No: Anuria Musculoskeletal: Yes: Muscle Weakness Extremities: Yes: Cool Edema: Yes Edema: LUE: 1+, RUE: 1+, LLE: 1+, RLE: 1+ Peripheral Pulses WNL: No Peripheral Pulses: Left Doralis Pedis: 1+, Right Dorsalis Pedis: 1+ Integumentary: Yes: Venous Stasis Changes Neurological: Yes: Weakness Psychiatric: Yes: Other Labs: CBC, BMP 12/01/18 08:20 12/01/18 08:20 INR, PTT INR 1.13 (0.83-1.09) H 11/23/18 16:40 Abnormal Lab Results 11/26/18 11/27/18 12/01/18 05:30 09:05 08:20 WBC Hct MCV MCHC RDW Absolute Neuts (auto) Neutrophils % Lymphocytes % ABG pH ABG pCO2 at Pt Temp ABG pO2 at Pt Temp ABG HCO3 ABG O2 Sat (Measured) ABG Base Excess Sodium Potassium Carbon Dioxide 34 H Anion Gap BUN 137 H* Creatinine 2.5 H Random Glucose 214 H Calcium 8.0 L Phosphorus 6.9 H Magnesium 3.1 H AST 9 L Total Protein 5.6 L Albumin 2.6 L Angiotensin Convert Enz 8 L Proteinase 3 (PR3) 46.0 H p-ANCA 1:1280 H 12/01/18 12/02/18 12/02/18 08:55 05:15 05:15 WBC 12.7 H Hct 48.5 H MCV 104.0 H MCHC 30.7 L RDW 15.9 H Absolute Neuts (auto) 10.8 H Neutrophils % 85.6 H Lymphocytes % 4.6 L ABG pH ABG pCO2 at Pt Temp 57.0 H ABG pO2 at Pt Temp ABG HCO3 34.4 H ABG O2 Sat (Measured) ABG Base Excess 8.0 H Sodium 147 H Potassium 5.4 H Carbon Dioxide 38 H Anion Gap 4 L BUN 132 H* Creatinine 2.2 H Random Glucose 152 H Calcium 8.4 L Phosphorus 6.9 H Magnesium 3.3 H AST Total Protein Albumin 2.9 L Angiotensin Convert Enz Proteinase 3 (PR3) p-ANCA 12/02/18 06:00 WBC Hct MCV MCHC RDW Absolute Neuts (auto) Neutrophils % Lymphocytes % ABG pH 7.27 L ABG pCO2 at Pt Temp 85.0 H* D ABG pO2 at Pt Temp 64.5 L D ABG HCO3 37.3 H ABG O2 Sat (Measured) 89.5 L ABG Base Excess 6.5 H Sodium Potassium Carbon Dioxide Anion Gap BUN Creatinine Random Glucose Calcium Phosphorus Magnesium AST Total Protein Albumin Angiotensin Convert Enz Proteinase 3 (PR3) p-ANCA - ....Imaging Chest X-ray: Image Reviewed Other: Image Reviewed (telemetry: Atrial fibrillation/flutter with RVR) Problem List - Problems (1) Atrial flutter Assessment/Plan: On diltiazem for HR control; continue IV drip. Start digoxin until HR better controlled. On apixaban for anticoagulation. ECHO: unable to assess LVEF; repeat when pt able to turn on left side for better windows (or get MUGA).If LVEF is significantly reduced, change diltiazem to beta nico (apprears to tlereate lopressor IVP prn presently). Code(s): I48.92 - UNSPECIFIED ATRIAL FLUTTER (2) Morbid obesity Code(s): E66.01 - MORBID (SEVERE) OBESITY DUE TO EXCESS CALORIES (3) Hyperlipidemia Assessment/Plan: elevated LDL cholesterol. Start statin (LFTs now normal); keep LDL cholesterol < 70 mg/dL. Code(s): E78.5 - HYPERLIPIDEMIA, UNSPECIFIED (4) HTN (hypertension) Assessment/Plan: On diltiazem. F/u ECHO for LVEF, wall thickness, chamber sizes, valve status (unable to assess LVEF initially; repeat ECHO today). Code(s): I10 - ESSENTIAL (PRIMARY) HYPERTENSION (5) Diabetes Code(s): E11.9 - TYPE 2 DIABETES MELLITUS WITHOUT COMPLICATIONS (6) Amidon cardiac risk >20% in next 10 years Assessment/Plan: TNI negative x 2. BP and glucose control. Keep LDL cholesterol < 70 mg/dL. Smoking cessation. Dietary consult; weight loss. Exercise will be important in the future. Coronary artery evaluation when stable (stress MIBI and/or coronary angiogram). Code(s): Z91.89 - OTH PERSONAL RISK FACTORS, NOT ELSEWHERE CLASSIFIED (7) Elevated LFTs Code(s): R94.5 - ABNORMAL RESULTS OF LIVER FUNCTION STUDIES (8) Cigarette nicotine dependence Code(s): F17.210 - NICOTINE DEPENDENCE, CIGARETTES, UNCOMPLICATED (9) Alcoholism Code(s): F10.20 - ALCOHOL DEPENDENCE, UNCOMPLICATED (10) Cellulitis Code(s): L03.90 - CELLULITIS, UNSPECIFIED (11) Sleep apnea Code(s): G47.30 - SLEEP APNEA, UNSPECIFIED (12) Ascites Code(s): R18.8 - OTHER ASCITES (13) Interstitial lung disease Assessment/Plan: F/u with pharm tech. Moderate pulmonary HTN and RV hypokinesis. R/o sarcoid. R/o sleep apnea. Code(s): J84.9 - INTERSTITIAL PULMONARY DISEASE, UNSPECIFIED (14) CHF (congestive heart failure) Assessment/Plan: Elevated BNP. F/u BUn/Cr, electrolytes, daily weight, IS and Os,. ECHO repeat for LVEF when pt better able to cooperate (and move on left side); otherwise, consder MUGA for LVEF. Control of AF/flutter HR presently with diltiazem (will have to be changed if LVEF is significantly reduced). Code(s): I50.9 - HEART FAILURE, UNSPECIFIED (15) Hyperkalemia Code(s): E87.5 - HYPERKALEMIA (16) Renal dysfunction Code(s): N28.9 - DISORDER OF KIDNEY AND URETER, UNSPECIFIED (17) Respiratory failure Code(s): J96.90 - RESPIRATORY FAILURE, UNSP, UNSP W HYPOXIA OR HYPERCAPNIA
[2018-12-01] MEDS ORDERED: DIGOXIN 0.5 MG/2 ML AMPUL IVPUSH ONE (15:00)
[2018-12-01 16:15] LABS: ATYPICAL pANCA <1:20 titer (Neg:<1:20); C-ANCA <1:20 titer (Neg:<1:20)
[2018-12-01] MEDS: DIGOXIN 0.5 MG/2 ML AMPUL IVPUSH SCH ×2 (16:50→21:25)
--- NOTE | 2018-12-01 16:58 | PN ---
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, Physician History of Present Illness: Pt seen and examined at bedside. She is now extubated. SHe is making urine. - Current Medication List Current Medications: Active Medications Albuterol/Ipratropium (Duoneb -) 1 amp NEB RQID [facility] Last Admin: 12/01/18 15:32 Dose: 1 amp Apixaban (Eliquis -) 5 mg PO BID [facility] Last Admin: 12/01/18 09:21 Dose: 5 mg Aspirin (Asa -) 81 mg PO DAILY [facility] Last Admin: 12/01/18 09:21 Dose: 81 mg Budesonide/Formoterol Fumarate (Symbicort 160/4.5mcg -) 1 puff IH DAILY [facility] Last Admin: 12/01/18 09:22 Dose: Not Given Digoxin (Lanoxin Injection -) 0.25 mg IVPUSH Q6H [facility] Stop: 12/02/18 03:01 Last Admin: 12/01/18 16:50 Dose: 0.25 mg Gabapentin (Neurontin -) 100 mg PO DAILY [facility] Last Admin: 12/01/18 09:21 Dose: 100 mg Diltiazem HCl 125 mg/ Sodium (Chloride) 125 mls @ 7 mls/hr IVPB TITR [facility]; Protocol Last Titration: 12/01/18 13:53 Dose: 10 mg/hr, 10 mls/hr Insulin Aspart (Novolog Vial Sliding Scale -) 1 vial SQ ACHS [facility]; Protocol Last Admin: 12/01/18 16:42 Dose: 4 units Insulin Detemir (Levemir Vial) 10 units SQ HS [facility] Last Admin: 11/30/18 22:52 Dose: 10 units Lorazepam (Ativan Injection -) 2 mg IVPUSH Q4H PRN PRN Reason: Anxiety or agitation Methylprednisolone Sodium Succinate (Solu-Medrol -) 40 mg IVPUSH DAILY [facility] Last Admin: 12/01/18 09:22 Dose: 40 mg Metoprolol Tartrate (Lopressor Injection -) 5 mg IVPUSH Q4H PRN PRN Reason: HR >120 Last Admin: 12/01/18 09:15 Dose: 5 mg Multivitamins/Minerals/Vitamin C (Tab-A-Vit -) 1 tab PO DAILY [facility] Last Admin: 12/01/18 09:21 Dose: 1 tab Pantoprazole Sodium (Protonix -) 20 mg PO DAILY [facility] Last Admin: 12/01/18 09:21 Dose: 20 mg Thiamine HCl (Vitamin B1 Injection -) 200 mg IVPB DAILY [facility] Last Admin: 12/01/18 09:22 Dose: 200 mg - Objective Vital Signs: Vital Signs Temperature 98.7 F 12/01/18 13:57 Pulse Rate 120 H 12/01/18 16:50 Respiratory Rate 14 12/01/18 13:57 Blood Pressure 125/67 12/01/18 13:57 O2 Sat by Pulse Oximetry (%) 93 L 12/01/18 15:48 Constitutional: Yes: Calm, Mild Distress Cardiovascular: Yes: Tachycardia, S1, S2 Respiratory: Yes: On Venti-Mask Gastrointestinal: Yes: Soft, Abdomen, Obese Genitourinary: Yes: Bills Present Musculoskeletal: Yes: Muscle Weakness Edema: Yes Edema: LUE: 1+, RUE: 1+, LLE: 1+, RLE: 1+ Integumentary: Yes: Venous Stasis Changes Neurological: Yes: Lethargy Labs: CBC, BMP 12/01/18 08:20 12/01/18 08:20 INR, PTT INR 1.13 (0.83-1.09) H 11/23/18 16:40 - ....Imaging Chest X-ray: Report Reviewed Problem List - Problems (1) Hyperkalemia Code(s): E87.5 - HYPERKALEMIA (2) Acute on chronic respiratory failure with hypoxia and hypercapnia Code(s): J96.21 - ACUTE AND CHRONIC RESPIRATORY FAILURE WITH HYPOXIA; J96.22 - ACUTE AND CHRONIC RESPIRATORY FAILURE WITH HYPERCAPNIA (3) Acute renal failure Code(s): N17.9 - ACUTE KIDNEY FAILURE, UNSPECIFIED (4) Alcoholism Code(s): F10.20 - ALCOHOL DEPENDENCE, UNCOMPLICATED (5) Atrial flutter Code(s): I48.92 - UNSPECIFIED ATRIAL FLUTTER (6) Bilateral lower extremity edema Code(s): R60.0 - LOCALIZED EDEMA (7) COPD exacerbation Code(s): J44.1 - CHRONIC OBSTRUCTIVE PULMONARY DISEASE W (ACUTE) EXACERBATION Assessment/Plan Current Medications Generic Name Dose Route Start Last Admin Trade Name Freq PRN Reason Stop Dose Admin Albuterol/Ipratropium 1 amp 11/25/18 20:10 12/01/18 15:32 Duoneb - NEB 1 amp RQID [facility] Administration Apixaban 5 mg 11/24/18 10:00 12/01/18 09:21 Eliquis - PO 5 mg BID [facility] Administration Aspirin 81 mg 11/24/18 10:00 12/01/18 09:21 Asa - PO 81 mg DAILY [facility] Administration Budesonide/Formoterol Fumarate 1 puff 11/24/18 10:00 12/01/18 09:22 Symbicort 160/4.5mcg - IH Not Given DAILY [facility] Digoxin 0.25 mg 12/01/18 15:00 12/01/18 16:50 Lanoxin Injection - IVPUSH 12/02/18 03:01 0.25 mg Q6H [facility] Administration Gabapentin 100 mg 11/24/18 10:00 12/01/18 09:21 Neurontin - PO 100 mg DAILY [facility] Administration Diltiazem HCl 125 mg/ Sodium 125 mls @ 7 mls/hr 12/01/18 11:45 12/01/18 13:53 Chloride IVPB 10 mg/hr TITR [facility] 10 mls/hr Titration Protocol 7 MG/HR Insulin Aspart 1 vial 11/24/18 11:00 12/01/18 16:42 Novolog Vial Sliding Scale - SQ 4 units ACHS [facility] Administration Protocol Insulin Detemir 10 units 11/24/18 22:00 11/30/18 22:52 Levemir Vial SQ 10 units HS [facility] Administration Lorazepam 2 mg 11/28/18 23:19 Ativan Injection - IVPUSH Q4H PRN Anxiety or agitation Methylprednisolone Sodium Succinate 40 mg 11/28/18 10:00 12/01/18 09:22 Solu-Medrol - IVPUSH 40 mg DAILY [facility] Administration Metoprolol Tartrate 5 mg 11/28/18 21:33 12/01/18 09:15 Lopressor Injection - IVPUSH 5 mg Q4H PRN Administration HR >120 Multivitamins/Minerals/Vitamin C 1 tab 11/24/18 10:00 12/01/18 09:21 Tab-A-Vit - PO 1 tab DAILY [facility] Administration Pantoprazole Sodium 20 mg 11/24/18 11:30 12/01/18 09:21 Protonix - PO 20 mg DAILY [facility] Administration Thiamine HCl 200 mg 11/26/18 11:30 12/01/18 09:22 Vitamin B1 Injection - IVPB 200 mg DAILY [facility] Administration Laboratory Tests 11/26/18 05:30 EVONNE Screen Positive H EVONNE Homogeneous Pattern 1:160 H Proteinase 3 (PR3) 46.0 H p-ANCA 1:1280 H Atypical p-ANCA <1:20 Myeloperoxidase Ab <9.0 Double Strand DNA Ab <1 Glomerular Base Memb Ab 3 Impression 1. PITO 2. hyperkalemia 3. a-flutter 4. resp failure requiring bipap 5. DM 6. HTN 7. active smoker 8. etoh abuse 9. obesity 10. interstitial lung disease on CT scan 11. resp acidosis 12. COPD 13. positive pr3 Plan - rheumatology eval - give lasix - will need kidney biopsy once pulmonary and cardiac status allow - pulse is varying from 120 to 140 - cardio follow up to see if aspirin can be held for biopsy - potassium improved - monitor pulse ox - monitor renal function - overall prognosis guarded - pt remains fluid overloaded - will follow closely
[2018-12-01] MEDS: INSULIN (LEVEMIR) 100 UNITS/ML UNITS SQ SCH (21:30)
[2018-12-02] MEDS: DIGOXIN 0.5 MG/2 ML AMPUL IVPUSH SCH ×2 (03:57→14:00)
[2018-12-02] MEDS: INSULIN SLIDING SCALE (NOVOLOG) 1 VIAL SQ SCH ×4 (06:03→21:27)
[2018-12-02] MEDS: METOPROLOL TARTRATE 5 MG/5 ML VIAL IVPUSH PRN (06:06)
[2018-12-02 06:10] LABS: ALLENS TEST POSITIVE
[2018-12-02 06:13] LABS: ARTERIAL BLD GAS O2 SATURATION 89.5 % (90-98.9); ARTERIAL BLOOD GAS BASE EXCESS 6.5 meq/l (-2-2); ARTERIAL BLOOD GAS PO2 64.5 mmHg (80-100); ARTERIAL BLOOD GAS pH 7.27 (7.35-7.45)
[2018-12-02 06:33] LABS: ALBUMIN 2.9 g/dl (3.4-5.0); ALK PHOS 90 U/L (45-117); ANION GAP 4 MMOL/L (8-16); BASO % 0.6 % (0-2.0); BILIRUBIN,TOTAL 0.7 mg/dL (0.2-1); CALCIUM 8.4 mg/dL (8.5-10.1); CHLORIDE 104 mmol/L (98-107); CO2 38 mmol/L (21-32); CREATININE 2.2 mg/dL (0.55-1.3); EOS % 0.1 % (0-4.5); GLUCOSE,RANDOM 152 mg/dL (74-106); HEMATOCRIT 48.5 % (32.4-45.2); HEMOGLOBIN 14.9 GM/dL (10.7-15.3); LYMPH % 4.6 % (8-40); MAGNESIUM 3.3 mg/dL (1.8-2.4); MCHC 30.7 g/dl (32.0-36.0); MEAN PLT VOLUME 9.5 fl (7.5-11.1); MONO % 9.1 % (3.8-10.2); NEUT % 85.6 % (42.8-82.8); PHOSPHOROUS 6.9 mg/dL (2.5-4.9); PLATELET COUNT 149 K/MM3 (134-434); POTASSIUM 5.4 mmol/L (3.5-5.1); RBC 4.67 M/mm3 (3.60-5.2); RDW 15.9 % (11.6-15.6); SGOT/AST 16 U/L (15-37); SGPT/ALT 24 U/L (13-61); SODIUM 147 mmol/L (136-145); TOT PROT 6.4 g/dl (6.4-8.2); WHITE BLOOD COUNT 12.7 K/mm3 (4.0-10.0)
[2018-12-02 06:36] LABS: BLOOD UREA NITROGEN 132 mg/dL (7-18)
[2018-12-02] MEDS: ALBUTEROL SO4 2.5/IPRATROPIUM 0.5 INH SOL 3 ML VIAL.NEB. NEB SCH ×4 (07:45→21:03)
[2018-12-02] MEDS ORDERED: dilTIAZem HCL 25 MG/5 ML - 5 ML VIAL ONE (10:13)
--- NOTE | 2018-12-02 10:25 | PN ---
Physical Exam: SUBJECTIVE: Patient seen and examined at bedside. No overnight events. No new complaints. Currently on Bilevel ventilation. OBJECTIVE: Vital Signs Period Temp Pulse Resp BP Sys/Gregorio Pulse Ox Last 24 Hr 98.7 F-98.9 F 80-142 14-36 107-144/58-94 40-93 GENERAL: Awake, alert, following 2-step commands HEAD: NC/AT EYES: PERRL, EOMI ENT: Moist mucous membranes. lips cracked NECK: supple LUNGS: b/l coarse breath sounds throughout with good air entry HEART: irregular, tachycardic, no murmur appreciated ABDOMEN: Soft, protuberant, edematous, mild distended, normoactive bowel sounds BUE: B/l hand swelling, sensation and ROM intact LOWER EXTREMITIES: BLE erythema to knee; no fluctuance; 2+ pulses, warm, well- perfused. +1 peripheral edema NEUROLOGICAL: no focal deficit. follows 2-step commands. Laboratory Results - last 24 hr 11/26/18 11/27/18 12/01/18 05:30 09:05 05:15 WBC RBC Hgb Hct MCV MCH MCHC RDW Plt Count MPV Absolute Neuts (auto) Neutrophils % Lymphocytes % Monocytes % Eosinophils % Basophils % Nucleated RBC % Anticoagulation Therapy Puncture Site ABG pH ABG pCO2 at Pt Temp ABG pO2 at Pt Temp ABG HCO3 ABG O2 Sat (Measured) ABG O2 Content ABG Base Excess Mendoza Test O2 Delivery Device Oxygen Flow Rate Vent Mode Vent Rate Mechanical Rate Pressure Support Vent Sodium Potassium Chloride Carbon Dioxide Anion Gap BUN Creatinine Creat Clearance w eGFR POC Glucometer [phone] Random Glucose Calcium Phosphorus Magnesium Total Bilirubin AST ALT Alkaline Phosphatase Total Protein Albumin Angiotensin Convert Enz 8 L c-ANCA <1:20 Proteinase 3 (PR3) 46.0 H p-ANCA 1:1280 H Atypical p-ANCA <1:20 Myeloperoxidase Ab <9.0 12/01/18 12/01/18 12/01/18 11:57 16:39 21:17 WBC RBC Hgb Hct MCV MCH MCHC RDW Plt Count MPV Absolute Neuts (auto) Neutrophils % Lymphocytes % Monocytes % Eosinophils % Basophils % Nucleated RBC % Anticoagulation Therapy Puncture Site ABG pH ABG pCO2 at Pt Temp ABG pO2 at Pt Temp ABG HCO3 ABG O2 Sat (Measured) ABG O2 Content ABG Base Excess Mendoza Test O2 Delivery Device Oxygen Flow Rate Vent Mode Vent Rate Mechanical Rate Pressure Support Vent Sodium Potassium Chloride Carbon Dioxide Anion Gap BUN Creatinine Creat Clearance w eGFR POC Glucometer 242.41963 229.47660 [phone] Random Glucose Calcium Phosphorus Magnesium Total Bilirubin AST ALT Alkaline Phosphatase Total Protein Albumin Angiotensin Convert Enz c-ANCA Proteinase 3 (PR3) p-ANCA Atypical p-ANCA Myeloperoxidase Ab 12/02/18 12/02/18 12/02/18 05:15 05:15 05:36 WBC 12.7 H RBC 4.67 Hgb 14.9 Hct 48.5 H MCV 104.0 H MCH 32.0 MCHC 30.7 L RDW 15.9 H Plt Count 149 MPV 9.5 Absolute Neuts (auto) 10.8 H Neutrophils % 85.6 H Lymphocytes % 4.6 L Monocytes % 9.1 Eosinophils % 0.1 Basophils % 0.6 Nucleated RBC % 0 Anticoagulation Therapy Puncture Site ABG pH ABG pCO2 at Pt Temp ABG pO2 at Pt Temp ABG HCO3 ABG O2 Sat (Measured) ABG O2 Content ABG Base Excess Mendoza Test O2 Delivery Device Oxygen Flow Rate Vent Mode Vent Rate Mechanical Rate Pressure Support Vent Sodium 147 H Potassium 5.4 H Chloride 104 Carbon Dioxide 38 H Anion Gap 4 L BUN 132 H* Creatinine 2.2 H Creat Clearance w eGFR 23.26 POC Glucometer [phone] Random Glucose 152 H Calcium 8.4 L Phosphorus 6.9 H Magnesium 3.3 H Total Bilirubin 0.7 AST 16 ALT 24 Alkaline Phosphatase 90 Total Protein 6.4 Albumin 2.9 L Angiotensin Convert Enz c-ANCA Proteinase 3 (PR3) p-ANCA Atypical p-ANCA Myeloperoxidase Ab 12/02/18 12/02/18 06:00 10:00 WBC RBC Hgb Hct MCV MCH MCHC RDW Plt Count MPV Absolute Neuts (auto) Neutrophils % Lymphocytes % Monocytes % Eosinophils % Basophils % Nucleated RBC % Anticoagulation Therapy No Result Required. No Result Required. Puncture Site Right radial ABG pH 7.27 L ABG pCO2 at Pt Temp 85.0 H* D ABG pO2 at Pt Temp 64.5 L D ABG HCO3 37.3 H ABG O2 Sat (Measured) 89.5 L ABG O2 Content 19.7 ABG Base Excess 6.5 H Mendoza Test Positive O2 Delivery Device High flow No Result Required. Oxygen Flow Rate 65% No Result Required. Vent Mode No Result Required. No Result Required. Vent Rate No Result Required. No Result Required. Mechanical Rate No Result Required. No Result Required. Pressure Support Vent No Result Required. No Result Required. Sodium Potassium Chloride Carbon Dioxide Anion Gap BUN Creatinine Creat Clearance w eGFR POC Glucometer Random Glucose Calcium Phosphorus Magnesium Total Bilirubin AST ALT Alkaline Phosphatase Total Protein Albumin Angiotensin Convert Enz c-ANCA Proteinase 3 (PR3) p-ANCA Atypical p-ANCA Myeloperoxidase Ab Active Medications Generic Name Dose Route Start Last Admin Trade Name Freq PRN Reason Stop Dose Admin Albuterol/Ipratropium 1 amp 11/25/18 20:10 12/01/18 21:20 Duoneb - NEB 1 amp RQID [facility] Administration Apixaban 5 mg 11/24/18 10:00 12/01/18 21:29 Eliquis - PO Not Given BID [facility] Aspirin 81 mg 11/24/18 10:00 12/01/18 09:21 Asa - PO 81 mg DAILY [facility] Administration Budesonide/Formoterol Fumarate 1 puff 11/24/18 10:00 12/01/18 09:22 Symbicort 160/4.5mcg - IH Not Given DAILY [facility] Gabapentin 100 mg 11/24/18 10:00 12/01/18 09:21 Neurontin - PO 100 mg DAILY [facility] Administration Diltiazem HCl 125 mg/ Sodium 125 mls @ 7 mls/hr 12/01/18 11:45 12/02/18 03:05 Chloride IVPB 15 mg/hr TITR [facility] 15 mls/hr Titration Protocol 7 MG/HR Insulin Aspart 1 vial 11/24/18 11:00 12/02/18 06:03 Novolog Vial Sliding Scale - SQ 2 units ACHS [facility] Administration Protocol Insulin Detemir 10 units 11/24/18 22:00 12/01/18 21:30 Levemir Vial SQ 10 units HS [facility] Administration Methylprednisolone Sodium Succinate 40 mg 11/28/18 10:00 12/01/18 09:22 Solu-Medrol - IVPUSH 40 mg DAILY [facility] Administration Metoprolol Tartrate 5 mg 11/28/18 21:33 12/02/18 06:06 Lopressor Injection - IVPUSH 5 mg Q4H PRN Administration HR >120 Multivitamins/Minerals/Vitamin C 1 tab 11/24/18 10:00 12/01/18 09:21 Tab-A-Vit - PO 1 tab DAILY [facility] Administration Pantoprazole Sodium 20 mg 11/24/18 11:30 12/01/18 09:21 Protonix - PO 20 mg DAILY [facility] Administration Thiamine HCl 200 mg 11/26/18 11:30 12/01/18 09:22 Vitamin B1 Injection - IVPB 200 mg DAILY [facility] Administration ASSESSMENT/PLAN: The pt is a 53F with a PMH of COPD, acute/chronic EtOH abuse (several glasses of rum daily), long-term tobacco abuse, TRINH, morbid obesity, DM, HTN, hyperlipidemia, cellulites, metabolic syndrome who was transferred to ICU due to worsening respiratory failure Neuro * ETOH abuse , dependence * Ativan 2mg IV PRN for withdrawal symptoms CV * Cardiology Dr Jefferson * A-flutter * started on Digoxin 0.125 * Cont ASA , Apixaban * Cardizim 25 IV push PRN * Antihypertensives held 2/2 relative hypotension Pulm * Acute hypercapnic respiratory failure due to pulmonary edema can Not R/O CHF vs copd exacerbation * ILD new diagnosed on CT * Continue Bilevel Ventilatory support. * Continue symbicort * Continue broncodilators * s/p intubation 11/27/2018 for acute decompensation * Extubated 12/01/2018 GI * Nutrition * OGT removed, will hold feeds for nowProtonix 40 PO daily * PITO * IVF held 2/2 respiratory edema/volume overload * Avoid nephrotoxic agents * Nephrology consulted Heme * DVT Ppx: scds , Apixaban , ASA ID * BLE Cellulitis * Not likely infectious in etiology * s/p Abx course * no further abx at this time Endo * DM * BGM ACHS * ISS Dispo: Patient continues to require ICU level of care. Visit type - Emergency Visit Emergency Visit: Yes ED Registration Date: 11/23/18 Care time: The patient presented to the Emergency Department on the above date and was hospitalized for further evaluation of their emergent condition. - New Patient This patient is new to me today: Yes Date on this admission: 12/02/18 - Critical Care Critical Care patient: Yes Total Critical Care Time (in minutes): 36 Critical Care Statement: The care of this patient involved high complexity decision making to prevent further life threatening deterioration of the patient 's condition and/or to evaluate & treat vital organ system(s) failure or risk of failure.
[2018-12-02 10:27] LABS: ARTERIAL BLD GAS O2 SATURATION 92.2 % (90-98.9); ARTERIAL BLOOD GAS BASE EXCESS 7.9 meq/l (-2-2); ARTERIAL BLOOD GAS pH 7.33 (7.35-7.45)
--- NOTE | 2018-12-02 10:31 | PN ---
Teaching Attending Note Name of Resident: Jerel Mccarty ATTENDING PHYSICIAN STATEMENT I saw and evaluated the patient. I reviewed the resident's note and discussed the case with the resident. I agree with the resident's findings and plan as documented. SUBJECTIVE: Patient seen and examined in the ICU. Hypercapneic on HF OT. Placed on NIPPV. Still lethargic but able to follow simple commands. No pressors. ABG is pending. CXR: poor film quality, possible RLL atelectasis versus effusion OBJECTIVE: Intake & Output 11/29/18 11/30/18 12/01/18 12/02/18 23:59 23:59 23:59 23:59 Intake Total 756.8 1405.2 1131.9 119.3 Output Total 2400 1400 2500 2000 Balance -1643.2 5.2 -1368.1 -1880.7 Weight 275 lb 9.245 oz 276 lb 3.2 oz 276 lb 7.355 oz 276 lb 3.827 oz Last Vital Signs Temp Pulse Resp BP Pulse Ox 98.9 F 138 H 36 H 144/74 92 L 12/01/18 18:00 12/02/18 06:06 12/02/18 06:00 12/02/18 06:06 12/01/18 20:25 Active Medications Albuterol/Ipratropium (Duoneb -) 1 amp NEB RQID [facility] Last Admin: 12/01/18 21:20 Dose: 1 amp Apixaban (Eliquis -) 5 mg PO BID [facility] Last Admin: 12/01/18 21:29 Dose: Not Given Aspirin (Asa -) 81 mg PO DAILY [facility] Last Admin: 12/01/18 09:21 Dose: 81 mg Budesonide/Formoterol Fumarate (Symbicort 160/4.5mcg -) 1 puff IH DAILY [facility] Last Admin: 12/01/18 09:22 Dose: Not Given Gabapentin (Neurontin -) 100 mg PO DAILY [facility] Last Admin: 12/01/18 09:21 Dose: 100 mg Diltiazem HCl 125 mg/ Sodium (Chloride) 125 mls @ 7 mls/hr IVPB TITR [facility]; Protocol Last Titration: 12/02/18 03:05 Dose: 15 mg/hr, 15 mls/hr Insulin Aspart (Novolog Vial Sliding Scale -) 1 vial SQ ACHS [facility]; Protocol Last Admin: 12/02/18 06:03 Dose: 2 units Insulin Detemir (Levemir Vial) 10 units SQ HS [facility] Last Admin: 12/01/18 21:30 Dose: 10 units Methylprednisolone Sodium Succinate (Solu-Medrol -) 40 mg IVPUSH DAILY [facility] Last Admin: 12/01/18 09:22 Dose: 40 mg Metoprolol Tartrate (Lopressor Injection -) 5 mg IVPUSH Q4H PRN PRN Reason: HR >120 Last Admin: 12/02/18 06:06 Dose: 5 mg Multivitamins/Minerals/Vitamin C (Tab-A-Vit -) 1 tab PO DAILY [facility] Last Admin: 12/01/18 09:21 Dose: 1 tab Pantoprazole Sodium (Protonix -) 20 mg PO DAILY [facility] Last Admin: 12/01/18 09:21 Dose: 20 mg Thiamine HCl (Vitamin B1 Injection -) 200 mg IVPB DAILY [facility] Last Admin: 12/01/18 09:22 Dose: 200 mg Gen: Lethargic but arousabe on NIPPV Heart: RRR Lung: distant breath sounds Abd: soft, nontender Ext: + edema Laboratory Results - last 24 hr 11/26/18 11/27/18 12/01/18 05:30 09:05 05:15 WBC RBC Hgb Hct MCV MCH MCHC RDW Plt Count MPV Absolute Neuts (auto) Neutrophils % Lymphocytes % Monocytes % Eosinophils % Basophils % Nucleated RBC % Anticoagulation Therapy Puncture Site ABG pH ABG pCO2 at Pt Temp ABG pO2 at Pt Temp ABG HCO3 ABG O2 Sat (Measured) ABG O2 Content ABG Base Excess Mendoza Test O2 Delivery Device Oxygen Flow Rate Vent Mode Vent Rate Mechanical Rate Pressure Support Vent Sodium Potassium Chloride Carbon Dioxide Anion Gap BUN Creatinine Creat Clearance w eGFR POC Glucometer [phone] Random Glucose Calcium Phosphorus Magnesium Total Bilirubin AST ALT Alkaline Phosphatase Total Protein Albumin Angiotensin Convert Enz 8 L c-ANCA <1:20 Proteinase 3 (PR3) 46.0 H p-ANCA 1:1280 H Atypical p-ANCA <1:20 Myeloperoxidase Ab <9.0 12/01/18 12/01/18 12/01/18 11:57 16:39 21:17 WBC RBC Hgb Hct MCV MCH MCHC RDW Plt Count MPV Absolute Neuts (auto) Neutrophils % Lymphocytes % Monocytes % Eosinophils % Basophils % Nucleated RBC % Anticoagulation Therapy Puncture Site ABG pH ABG pCO2 at Pt Temp ABG pO2 at Pt Temp ABG HCO3 ABG O2 Sat (Measured) ABG O2 Content ABG Base Excess Mendoza Test O2 Delivery Device Oxygen Flow Rate Vent Mode Vent Rate Mechanical Rate Pressure Support Vent Sodium Potassium Chloride Carbon Dioxide Anion Gap BUN Creatinine Creat Clearance w eGFR POC Glucometer 242.06511 229.86681 211.14966 Random Glucose Calcium Phosphorus Magnesium Total Bilirubin AST ALT Alkaline Phosphatase Total Protein Albumin Angiotensin Convert Enz c-ANCA Proteinase 3 (PR3) p-ANCA Atypical p-ANCA Myeloperoxidase Ab 12/02/18 12/02/18 12/02/18 05:15 05:15 05:36 WBC 12.7 H RBC 4.67 Hgb 14.9 Hct 48.5 H MCV 104.0 H MCH 32.0 MCHC 30.7 L RDW 15.9 H Plt Count 149 MPV 9.5 Absolute Neuts (auto) 10.8 H Neutrophils % 85.6 H Lymphocytes % 4.6 L Monocytes % 9.1 Eosinophils % 0.1 Basophils % 0.6 Nucleated RBC % 0 Anticoagulation Therapy Puncture Site ABG pH ABG pCO2 at Pt Temp ABG pO2 at Pt Temp ABG HCO3 ABG O2 Sat (Measured) ABG O2 Content ABG Base Excess Mendoza Test O2 Delivery Device Oxygen Flow Rate Vent Mode Vent Rate Mechanical Rate Pressure Support Vent Sodium 147 H Potassium 5.4 H Chloride 104 Carbon Dioxide 38 H Anion Gap 4 L BUN 132 H* Creatinine 2.2 H Creat Clearance w eGFR 23.26 POC Glucometer 159.52332 Random Glucose 152 H Calcium 8.4 L Phosphorus 6.9 H Magnesium 3.3 H Total Bilirubin 0.7 AST 16 ALT 24 Alkaline Phosphatase 90 Total Protein 6.4 Albumin 2.9 L Angiotensin Convert Enz c-ANCA Proteinase 3 (PR3) p-ANCA Atypical p-ANCA Myeloperoxidase Ab 12/02/18 12/02/18 06:00 10:00 WBC RBC Hgb Hct MCV MCH MCHC RDW Plt Count MPV Absolute Neuts (auto) Neutrophils % Lymphocytes % Monocytes % Eosinophils % Basophils % Nucleated RBC % Anticoagulation Therapy No Result Required. No Result Required. Puncture Site Right radial ABG pH 7.27 L ABG pCO2 at Pt Temp 85.0 H* D ABG pO2 at Pt Temp 64.5 L D ABG HCO3 37.3 H ABG O2 Sat (Measured) 89.5 L ABG O2 Content 19.7 ABG Base Excess 6.5 H Mendoza Test Positive O2 Delivery Device High flow No Result Required. Oxygen Flow Rate 65% No Result Required. Vent Mode No Result Required. No Result Required. Vent Rate No Result Required. No Result Required. Mechanical Rate No Result Required. No Result Required. Pressure Support Vent No Result Required. No Result Required. Sodium Potassium Chloride Carbon Dioxide Anion Gap BUN Creatinine Creat Clearance w eGFR POC Glucometer Random Glucose Calcium Phosphorus Magnesium Total Bilirubin AST ALT Alkaline Phosphatase Total Protein Albumin Angiotensin Convert Enz c-ANCA Proteinase 3 (PR3) p-ANCA Atypical p-ANCA Myeloperoxidase Ab ASSESSMENT AND PLAN: Acute on Chronic Hypoxic and Hypercapneic Respiratory Failure Acute COPD Exacerbation Morbid Obesity Obstructive Sleep Apnea/Obesity Hypoventilation Syndrome Suspect Right Heart Failure Volume Overload Mediastinal Lymphadenopathy Atrial Flutter with RVR Cellulitis Acute Kidney Injury Alcohol Abuse - STAT ABG: may need re-intubation - Medrol - Inhaled bronchodilators - Lasix today - Off ABX - Monitor urine output, creatinine - Follow potassium level - Rate control - Continue anticoagulation - Outpatient f/u of mediastinal lymphadenopathy - ICU monitoring due to tenuous respiratory status Dr Dixon Critical care time spent in reviewing chart, evaluating patient and formulating plan 35 min
[2018-12-02] MEDS ORDERED: FUROSEMIDE 40 MG/4 ML INJECTABLE VIAL IVPUSH ONE (10:33)
[2018-12-02 10:36] LABS: ALLENS TEST POSITIVE
[2018-12-02 10:37] LABS: ARTERIAL BLOOD GAS PCO2 73.4 mmHg (35-45)
[2018-12-02] MEDS: GABAPENTIN 100 MG CAPSULE (FP) PO SCH (10:57)
[2018-12-02] MEDS: PANTOPRAZOLE 20 MG TABLET (FP) PO SCH (10:57)
[2018-12-02] MEDS: APIXABAN 5 MG TABLET PO SCH ×2 (10:57→21:16)
[2018-12-02] MEDS: ASPIRIN 81 MG CHEWABLE TABLETS PO SCH (10:57)
[2018-12-02] MEDS: BUDESONIDE/FORMETEROL FUMARATE 160/4.5 mcg INHALER IH SCH (10:58)
[2018-12-02] MEDS: THIAMINE HCL 200 MG/2 ML VIAL IVPB SCH (10:58)
[2018-12-02] MEDS: methylPREDNISolone NA SUCC 40 MG/1 ML VIAL IVPUSH SCH (10:58)
[2018-12-02] MEDS: MULTIVITAMINS (DAILY MVI) TABLET (FP) PO SCH (10:58)
--- NOTE | 2018-12-02 11:41 | PN ---
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 ASA to be held for 7 days in anticipation of renal biopsy, cardiology agrees to plan. Hematology consulted regarding immunosuppression vs. plasmapharesis.
[2018-12-02] MEDS: DILTIAZEM INJECTION 125 MG in SODIUM CHLORIDE 100 ML IVPB SCH (12:00)
--- NOTE | 2018-12-02 13:09 | PN ---
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, Physician History of Present Illness: Pt seen and examined at bedside. She remains extubated but is now on bipap. She is not answering questions. - Current Medication List Current Medications: Active Medications Albuterol/Ipratropium (Duoneb -) 1 amp NEB RQID [facility] Last Admin: 12/02/18 12:08 Dose: 1 amp Apixaban (Eliquis -) 5 mg PO BID [facility] Last Admin: 12/02/18 10:57 Dose: Not Given Budesonide/Formoterol Fumarate (Symbicort 160/4.5mcg -) 1 puff IH DAILY [facility] Last Admin: 12/02/18 10:58 Dose: Not Given Digoxin (Lanoxin Injection -) 0.125 mg IVPUSH DAILY [facility] Gabapentin (Neurontin -) 100 mg PO DAILY [facility] Last Admin: 12/02/18 10:57 Dose: Not Given Diltiazem HCl 125 mg/ Sodium (Chloride) 125 mls @ 7 mls/hr IVPB TITR [facility]; Protocol Last Titration: 12/02/18 03:05 Dose: 15 mg/hr, 15 mls/hr Insulin Aspart (Novolog Vial Sliding Scale -) 1 vial SQ ACHS [facility]; Protocol Last Admin: 12/02/18 06:03 Dose: 2 units Insulin Detemir (Levemir Vial) 10 units SQ HS [facility] Last Admin: 12/01/18 21:30 Dose: 10 units Methylprednisolone Sodium Succinate (Solu-Medrol -) 40 mg IVPUSH DAILY [facility] Last Admin: 12/02/18 10:58 Dose: 40 mg Metoprolol Tartrate (Lopressor Injection -) 5 mg IVPUSH Q4H PRN PRN Reason: HR >120 Last Admin: 12/02/18 06:06 Dose: 5 mg Multivitamins/Minerals/Vitamin C (Tab-A-Vit -) 1 tab PO DAILY [facility] Last Admin: 12/02/18 10:58 Dose: Not Given Pantoprazole Sodium (Protonix -) 20 mg PO DAILY [facility] Last Admin: 12/02/18 10:57 Dose: Not Given Thiamine HCl (Vitamin B1 Injection -) 200 mg IVPB DAILY [facility] Last Admin: 12/02/18 10:58 Dose: 200 mg - Objective Vital Signs: Vital Signs Temperature 98.9 F 12/01/18 18:00 Pulse Rate 138 H 12/02/18 06:06 Respiratory Rate 36 H 01/01/19 06:00 Blood Pressure 144/74 12/02/18 06:06 O2 Sat by Pulse Oximetry (%) 94 L 12/02/18 12:07 Constitutional: Yes: Mild Distress Cardiovascular: Yes: S1, S2 Respiratory: Yes: On BiPap Gastrointestinal: Yes: Soft, Abdomen, Obese Genitourinary: Yes: Bills Present Musculoskeletal: Yes: Muscle Weakness Edema: Yes Edema: LUE: 1+, RUE: 1+, LLE: 2+, RLE: 2+ Integumentary: Yes: Venous Stasis Changes Neurological: Yes: Lethargy Labs: CBC, BMP 12/02/18 05:15 12/02/18 05:15 INR, PTT INR 1.13 (0.83-1.09) H 11/23/18 16:40 - ....Imaging Chest X-ray: Report Reviewed Problem List - Problems (1) Hyperkalemia Code(s): E87.5 - HYPERKALEMIA (2) Acute on chronic respiratory failure with hypoxia and hypercapnia Code(s): J96.21 - ACUTE AND CHRONIC RESPIRATORY FAILURE WITH HYPOXIA; J96.22 - ACUTE AND CHRONIC RESPIRATORY FAILURE WITH HYPERCAPNIA (3) Acute renal failure Code(s): N17.9 - ACUTE KIDNEY FAILURE, UNSPECIFIED (4) Alcoholism Code(s): F10.20 - ALCOHOL DEPENDENCE, UNCOMPLICATED (5) Atrial flutter Code(s): I48.92 - UNSPECIFIED ATRIAL FLUTTER (6) Bilateral lower extremity edema Code(s): R60.0 - LOCALIZED EDEMA (7) COPD exacerbation Code(s): J44.1 - CHRONIC OBSTRUCTIVE PULMONARY DISEASE W (ACUTE) EXACERBATION Assessment/Plan Current Medications Generic Name Dose Route Start Last Admin Trade Name Freq PRN Reason Stop Dose Admin Albuterol/Ipratropium 1 amp 11/25/18 20:10 12/02/18 12:08 Duoneb - NEB 1 amp RQID [facility] Administration Apixaban 5 mg 11/24/18 10:00 12/02/18 10:57 Eliquis - PO Not Given BID [facility] Budesonide/Formoterol Fumarate 1 puff 11/24/18 10:00 12/02/18 10:58 Symbicort 160/4.5mcg - IH Not Given DAILY [facility] Digoxin 0.125 mg 12/02/18 12:15 Lanoxin Injection - IVPUSH DAILY [facility] Gabapentin 100 mg 11/24/18 10:00 12/02/18 10:57 Neurontin - PO Not Given DAILY [facility] Diltiazem HCl 125 mg/ Sodium 125 mls @ 7 mls/hr 12/01/18 11:45 12/02/18 03:05 Chloride IVPB 15 mg/hr TITR [facility] 15 mls/hr Titration Protocol 7 MG/HR Insulin Aspart 1 vial 11/24/18 11:00 12/02/18 06:03 Novolog Vial Sliding Scale - SQ 2 units ACHS [facility] Administration Protocol Insulin Detemir 10 units 11/24/18 22:00 12/01/18 21:30 Levemir Vial SQ 10 units HS [facility] Administration Methylprednisolone Sodium Succinate 40 mg 11/28/18 10:00 12/02/18 10:58 Solu-Medrol - IVPUSH 40 mg DAILY [facility] Administration Metoprolol Tartrate 5 mg 11/28/18 21:33 12/02/18 06:06 Lopressor Injection - IVPUSH 5 mg Q4H PRN Administration HR >120 Multivitamins/Minerals/Vitamin C 1 tab 11/24/18 10:00 12/02/18 10:58 Tab-A-Vit - PO Not Given DAILY [facility] Pantoprazole Sodium 20 mg 11/24/18 11:30 12/02/18 10:57 Protonix - PO Not Given DAILY [facility] Thiamine HCl 200 mg 11/26/18 11:30 12/02/18 10:58 Vitamin B1 Injection - IVPB 200 mg DAILY [facility] Administration Laboratory Tests 11/26/18 05:30 c-ANCA <1:20 Proteinase 3 (PR3) 46.0 H p-ANCA 1:1280 H Atypical p-ANCA <1:20 Myeloperoxidase Ab <9.0 Impression 1. PITO 2. hyperkalemia 3. a-flutter 4. resp failure requiring bipap 5. DM 6. HTN 7. active smoker 8. etoh abuse 9. obesity 10. interstitial lung disease on CT scan 11. resp acidosis 12. COPD 13. positive pr3 Plan - pending rheum eval - cont steroids - cardio cleared to hold asa for biopsy - had a long discussion with family about condition - cont with lasix - pulse is improved - treat potassium medically - discussed with ICU team - discussed with pulmonary - get heme eval as well - overall prognosis guarded - pt remains fluid overloaded - will follow closely
--- NOTE | 2018-12-02 13:20 | CONSULT ---
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 No evidence of sepsis. PE ruled out. CT chest suggest ILD, and EVONNE sceen positive for ANCA and SP3 History of Present Illness: As above. Patient on BIPAP presently - Past Medical History Cardio/Vascular: Yes: HTN Pulmonary: Yes: COPD, Sleep Apnea (r/o (morbid obesity; COPD)) ...: No Endocrine: Yes: Diabetes Mellitus - Past Surgical History Past Surgical History: Yes: Cholecystectomy - Alcohol/Substance Use Hx Alcohol Use: Yes (4 glasses of Rum) History of Substance Use: reports: None - Smoking History Smoking history: Current every day smoker Aproximately how many cigarettes per day: 3 - Social History Usual Living Arrangement: Other (roommate) ADL: Independent History of Recent Travel: No Home Medications - Allergies Allergies/Adverse Reactions: Allergies Allergy/AdvReac Type Severity Reaction Status Date / Time No Known Allergies Allergy Verified 11/23/18 16:10 - Home Medications Home Medications: Ambulatory Orders Albuterol Sulfate Inhaler - [Ventolin Hfa Inhaler -] 1 - 2 inh PO QID 11/23/18 Aspirin [ASA -] 81 mg PO DAILY 11/23/18 Budesonide/Formeterol Fumarate [SYMBICORT 160/4.5mcg -] 1 inh PO DAILY 11/23/18 Furosemide [Lasix] 40 mg PO DAILY 11/23/18 Gabapentin 100 mg PO DAILY 11/23/18 Glipizide 10 mg PO BID 11/23/18 Lisinopril [Prinivil] 10 mg PO DAILY 11/23/18 Metformin HCl [Glucophage] 500 mg PO BID 11/23/18 Multivitamins [Tab-A-Vit -] 1 tab PO DAILY 11/23/18 Salmeterol/Fluticasone [Advair 500Mcg/50Mcg -] 1 inh IH BID 11/23/18 Review of Systems Unable to obtain ROS, reason: On BIPAP Physical Exam Vital Signs: Vital Signs Temperature 98.9 F 12/01/18 18:00 Pulse Rate 138 H 12/02/18 06:06 Respiratory Rate 36 H 12/02/18 06:00 Blood Pressure 144/74 12/02/18 06:06 O2 Sat by Pulse Oximetry (%) 94 L 12/02/18 12:07 Constitutional: Yes: Well Nourished, Obese HENT: Yes: Normocephalic Neck: Yes: Trachea Midline. 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 No indication for plasma exchange. Recommend proceed with immuno-suppression. Typically high dose steroids - methylprednisone 10-15 mgs/kg daily and cyclophosphamide - can give 10 mgs/kg IV - single dose. Change in mental status attributed to metabolic encephalopathy. Marked hypercapnia - consider re-intubation and PPV is PCO2 remains high on BIPAP or if becomes more acidotic. Consider CT head if does not improve. Would confer with rheumatology, to confirm above management, as discussed with Dr Nino. Call with questions
[2018-12-02] MEDS ORDERED: CYCLOPHOSPHAMIDE 25 MG TABLET PO ONE (17:43)
[2018-12-02] MEDS ORDERED: methylPREDNISolone NA SUCC 1000 MG/8 ML VIAL IVPB SCH (17:45)
[2018-12-02] MEDS ORDERED: BENZOIN/ALOE VERA/STORAX/TOLU 58 ML BOTTLE ONE (18:06)
[2018-12-02] MEDS ORDERED: PT OWN MED DRAWER 7, Y5N ONE (18:29)
[2018-12-02] MEDS: METHYLPREDNISOLONE NA SUCC IVPB SCH (19:20)
[2018-12-02] MEDS: WATER IVPB SCH (19:20)
[2018-12-02] MEDS: DEXTROSE 5% IVPB SCH (19:20)
[2018-12-02] MEDS ORDERED: CYCLOPHOSPHAMIDE INJECTION 1,200 MG in SODIUM CHLORIDE 250 ML IVPB ONE (21:00)
[2018-12-02] MEDS: INSULIN (LEVEMIR) 100 UNITS/ML UNITS SQ SCH (21:28)
[2018-12-02] MEDS: PANTOPRAZOLE SODIUM 40 MG VIAL IVPUSH SCH (21:32)
--- NOTE | 2018-12-02 22:55 | PN ---
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 (short form) - Note 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: Extubated , on BIPAP now responds to commands Vital Signs - 24 hr 12/02/18 12/02/18 12/02/18 02:00 03:05 03:57 Temperature Pulse Rate 128 H 140 H 140 H Respiratory 21 H Rate Blood Pressure 131/89 143/86 O2 Sat by Pulse Oximetry (%) 12/02/18 12/02/18 12/02/18 06:00 06:06 08:00 Temperature Pulse Rate 80 138 H 68 Respiratory 36 H 22 H Rate Blood Pressure 119/70 144/74 119/72 O2 Sat by Pulse Oximetry (%) 12/02/18 12/02/18 12/02/18 08:10 09:40 10:00 Temperature Pulse Rate 69 Respiratory 22 H Rate Blood Pressure 117/68 O2 Sat by Pulse 93 L 93 L 94 L Oximetry (%) 12/02/18 12/02/18 12/02/18 12:00 12:07 14:00 Temperature Pulse Rate 69 69 Respiratory 22 H 24 H Rate Blood Pressure 127/73 129/76 O2 Sat by Pulse 94 L Oximetry (%) 12/02/18 12/02/18 12/02/18 15:46 16:02 16:54 Temperature Pulse Rate 70 69 Respiratory 24 H 24 H Rate Blood Pressure 128/75 137/75 O2 Sat by Pulse 93 L Oximetry (%) 12/02/18 12/02/18 12/02/18 18:00 18:40 19:28 Temperature Pulse Rate 69 Respiratory 24 H Rate Blood Pressure 131/68 O2 Sat by Pulse 96 96 Oximetry (%) 12/02/18 12/02/18 12/02/18 19:30 20:00 21:04 Temperature 98.7 F Pulse Rate 69 Respiratory 21 H Rate Blood Pressure 126/71 O2 Sat by Pulse 96 96 Oximetry (%) 12/02/18 12/02/18 21:05 22:06 Temperature Pulse Rate 98 H 68 Respiratory 15 Rate Blood Pressure 125/72 O2 Sat by Pulse 96 Oximetry (%) Current Medications Generic Name Dose Route Start Last Admin Trade Name Freq PRN Reason Stop Dose Admin Albuterol/Ipratropium 1 amp 11/25/18 20:10 12/02/18 21:03 Duoneb - NEB 1 amp RQID [facility] Administration Apixaban 5 mg 11/24/18 10:00 12/02/18 21:16 Eliquis - PO Not Given BID [facility] Budesonide/Formoterol Fumarate 1 puff 11/24/18 10:00 12/02/18 10:58 Symbicort 160/4.5mcg - IH Not Given DAILY BR[facility] Digoxin 0.125 mg 12/02/18 12:15 12/02/18 14:00 Lanoxin Injection - IVPUSH 0.125 mg DAILY [facility] Administration Gabapentin 100 mg 11/24/18 10:00 12/02/18 10:57 Neurontin - PO Not Given DAILY [facility] Diltiazem HCl 125 mg/ Sodium 125 mls @ 7 mls/hr 12/01/18 11:45 12/02/18 12:00 Chloride IVPB 15 mg/hr TITR BRIDGETTE 15 mls/hr Administration Protocol 7 MG/HR Methylprednisolone Sodium 260 mls @ 130 mls/hr 12/02/18 18:15 12/02/18 19:20 Succinate 1,250 mg/ Dextrose IVPB 130 mls/hr DAILY [facility] Administration Insulin Aspart 1 vial 11/24/18 11:00 12/02/18 21:27 Novolog Vial Sliding Scale - SQ 4 units ACHS BR[facility] Administration Protocol Insulin Detemir 10 units 11/24/18 22:00 12/02/18 21:28 Levemir Vial SQ 10 units HS [facility] Administration Metoprolol Tartrate 5 mg 11/28/18 21:33 12/02/18 06:06 Lopressor Injection - IVPUSH 5 mg Q4H PRN Administration HR >120 Multivitamins/Minerals/Vitamin C 1 tab 11/24/18 10:00 12/02/18 10:58 Tab-A-Vit - PO Not Given DAILY [facility] Pantoprazole Sodium 40 mg 12/02/18 22:00 12/02/18 21:32 Protonix Iv IVPUSH 40 mg BID [facility] Administration Thiamine HCl 200 mg 11/26/18 11:30 12/02/18 10:58 Vitamin B1 Injection - IVPB 200 mg DAILY [facility] Administration Laboratory Results - last 24 hr 12/02/18 12/02/18 12/02/18 05:15 05:15 05:36 WBC 12.7 H RBC 4.67 Hgb 14.9 Hct 48.5 H MCV 104.0 H MCH 32.0 MCHC 30.7 L RDW 15.9 H Plt Count 149 MPV 9.5 Absolute Neuts (auto) 10.8 H Neutrophils % 85.6 H Lymphocytes % 4.6 L Monocytes % 9.1 Eosinophils % 0.1 Basophils % 0.6 Nucleated RBC % 0 Anticoagulation Therapy Puncture Site ABG pH ABG pCO2 at Pt Temp ABG pO2 at Pt Temp ABG HCO3 ABG O2 Sat (Measured) ABG O2 Content ABG Base Excess Mendoza Test O2 Delivery Device Oxygen Flow Rate Vent Mode Vent Rate Mechanical Rate Pressure Support Vent Sodium 147 H Potassium 5.4 H Chloride 104 Carbon Dioxide 38 H Anion Gap 4 L BUN 132 H* Creatinine 2.2 H Creat Clearance w eGFR 23.26 POC Glucometer [phone] Random Glucose 152 H Calcium 8.4 L Phosphorus 6.9 H Magnesium 3.3 H Total Bilirubin 0.7 AST 16 ALT 24 Alkaline Phosphatase 90 Total Protein 6.4 Albumin 2.9 L 12/02/18 12/02/18 12/02/18 06:00 10:00 12:07 WBC RBC Hgb Hct MCV MCH MCHC RDW Plt Count MPV Absolute Neuts (auto) Neutrophils % Lymphocytes % Monocytes % Eosinophils % Basophils % Nucleated RBC % Anticoagulation Therapy No Result Required. No Result Required. Puncture Site Right radial Right radial ABG pH 7.27 L 7.33 L ABG pCO2 at Pt Temp 85.0 H* D 73.4 H* ABG pO2 at Pt Temp 64.5 L D 68.0 L ABG HCO3 37.3 H 37.3 H ABG O2 Sat (Measured) 89.5 L 92.2 ABG O2 Content 19.7 21.0 ABG Base Excess 6.5 H 7.9 H Mendoza Test Positive Positive O2 Delivery Device High flow No Result Required. Oxygen Flow Rate 65% Yes Vent Mode No Result Required. No Result Required. Vent Rate No Result Required. No Result Required. Mechanical Rate No Result Required. No Result Required. Pressure Support Vent No Result Required. No Result Required. Sodium Potassium Chloride Carbon Dioxide Anion Gap BUN Creatinine Creat Clearance w eGFR POC Glucometer [phone] Random Glucose Calcium Phosphorus Magnesium Total Bilirubin AST ALT Alkaline Phosphatase Total Protein Albumin sedated S1 S2 RRR Lungs decreased breath sounds Abd- soft, NT,obese, ND edema + PLAN In ICU - monitor O2 sat sedated on vent Ativan prn for withdrawal rate is controlled renal function-less off antibiotics continue with meds 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 Hematology and Rheumatology consulted Problem List - Problems (1) Acute on chronic respiratory failure with hypoxia and hypercapnia Code(s): J96.21 - ACUTE AND CHRONIC RESPIRATORY FAILURE WITH HYPOXIA; J96.22 - ACUTE AND CHRONIC RESPIRATORY FAILURE WITH HYPERCAPNIA (2) Acute renal failure Code(s): N17.9 - ACUTE KIDNEY FAILURE, UNSPECIFIED (3) Acute respiratory failure with hypoxia and hypercapnia Code(s): J96.01 - ACUTE RESPIRATORY FAILURE WITH HYPOXIA; J96.02 - ACUTE RESPIRATORY FAILURE WITH HYPERCAPNIA (4) Alcoholism Code(s): F10.20 - ALCOHOL DEPENDENCE, UNCOMPLICATED (5) Atrial flutter Code(s): I48.92 - UNSPECIFIED ATRIAL FLUTTER (6) Bilateral lower extremity edema Code(s): R60.0 - LOCALIZED EDEMA
[2018-12-03] MEDS ORDERED: dilTIAZem HCL 25 MG/5 ML - 5 ML VIAL ONE ×2 (01:57→17:45)
--- NOTE | 2018-12-03 02:31 | PN ---
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, Physician Chief Complaint: Pt remains lethargic, dyspneic, hypercapneic. History of Present Illness: 53 YO white woman with h/o COPD (placed on steroid course 2 days ago without relief) acute/chronic alcoholism (several glasses of rum daily), long-term cigarette smoker, sleep apnea, morbid obesity, DM, HTN, hyperlipidemia, chronic erythema of LEs with hx cellulitis, metabolic syndrome, who p/w SOB and wheezing similar to her prior COPD exacerbation. She additionally notes awakening in the middle of the night last night with visual hallucinations. She additionally notes abdominal swelling recently, believes she has an abdominal infection but does not know what kind. Denies h/o heart arrhythmia. She has noticed her lips are more blue than normal. - Current Medication List Current Medications: Active Medications Albuterol/Ipratropium (Duoneb -) 1 amp NEB RQID [facility] Last Admin: 12/02/18 21:03 Dose: 1 amp Apixaban (Eliquis -) 5 mg PO BID [facility] Last Admin: 12/02/18 21:16 Dose: Not Given Budesonide/Formoterol Fumarate (Symbicort 160/4.5mcg -) 1 puff IH DAILY [facility] Last Admin: 12/02/18 10:58 Dose: Not Given Digoxin (Lanoxin Injection -) 0.125 mg IVPUSH DAILY [facility] Last Admin: 12/02/18 14:00 Dose: 0.125 mg Gabapentin (Neurontin -) 100 mg PO DAILY [facility] Last Admin: 12/02/18 10:57 Dose: Not Given Diltiazem HCl 125 mg/ Sodium (Chloride) 125 mls @ 7 mls/hr IVPB TITR [facility]; Protocol Last Admin: 12/02/18 12:00 Dose: 15 mg/hr, 15 mls/hr Methylprednisolone Sodium (Succinate 1,250 mg/ Dextrose) 260 mls @ 130 mls/hr IVPB DAILY [facility] Last Admin: 12/02/18 19:20 Dose: 130 mls/hr Insulin Aspart (Novolog Vial Sliding Scale -) 1 vial SQ ACHS [facility]; Protocol Last Admin: 12/02/18 21:27 Dose: 4 units Insulin Detemir (Levemir Vial) 10 units SQ HS [facility] Last Admin: 12/02/18 21:28 Dose: 10 units Metoprolol Tartrate (Lopressor Injection -) 5 mg IVPUSH Q4H PRN PRN Reason: HR >120 Last Admin: 12/02/18 06:06 Dose: 5 mg Multivitamins/Minerals/Vitamin C (Tab-A-Vit -) 1 tab PO DAILY [facility] Last Admin: 12/02/18 10:58 Dose: Not Given Pantoprazole Sodium (Protonix Iv) 40 mg IVPUSH BID [facility] Last Admin: 12/02/18 21:32 Dose: 40 mg Thiamine HCl (Vitamin B1 Injection -) 200 mg IVPB DAILY [facility] Last Admin: 12/02/18 10:58 Dose: 200 mg - Objective Vital Signs: Vital Signs Temperature 98.7 F 12/02/18 20:00 Pulse Rate 69 12/03/18 00:05 Respiratory Rate 20 12/03/18 00:05 Blood Pressure 121/69 12/03/18 00:05 O2 Sat by Pulse Oximetry (%) 96 12/03/18 00:02 Constitutional: Yes: Obese Eyes: Yes: WNL HENT: Yes: WNL Neck: Yes: WNL Cardiovascular: Yes: S1 (varies in intensity), S2 Respiratory: Yes: Diminished Gastrointestinal: Yes: Soft, Abdomen, Obese Genitourinary: No: Anuria Breast(s): Yes: WNL Musculoskeletal: Yes: Muscle Weakness Extremities: Yes: Cool Edema: Yes Edema: LLE: Trace, RLE: Trace Peripheral Pulses WNL: Yes Integumentary: Yes: Bruising Neurological: Yes: Weakness Psychiatric: Yes: Other Labs: CBC, BMP 12/02/18 05:15 12/02/18 05:15 INR, PTT INR 1.13 (0.83-1.09) H 11/23/18 16:40 Abnormal Lab Results 12/02/18 12/02/18 12/02/18 05:15 05:15 06:00 WBC 12.7 H Hct 48.5 H MCV 104.0 H MCHC 30.7 L RDW 15.9 H Absolute Neuts (auto) 10.8 H Neutrophils % 85.6 H Lymphocytes % 4.6 L ABG pH 7.27 L ABG pCO2 at Pt Temp 85.0 H* D ABG pO2 at Pt Temp 64.5 L D ABG HCO3 37.3 H ABG O2 Sat (Measured) 89.5 L ABG Base Excess 6.5 H Sodium 147 H Potassium 5.4 H Carbon Dioxide 38 H Anion Gap 4 L BUN 132 H* Creatinine 2.2 H Random Glucose 152 H Calcium 8.4 L Phosphorus 6.9 H Magnesium 3.3 H Albumin 2.9 L 12/02/18 10:00 WBC Hct MCV MCHC RDW Absolute Neuts (auto) Neutrophils % Lymphocytes % ABG pH 7.33 L ABG pCO2 at Pt Temp 73.4 H* ABG pO2 at Pt Temp 68.0 L ABG HCO3 37.3 H ABG O2 Sat (Measured) ABG Base Excess 7.9 H Sodium Potassium Carbon Dioxide Anion Gap BUN Creatinine Random Glucose Calcium Phosphorus Magnesium Albumin - ....Imaging Other: Image Reviewed (telemetry: AF; controlled VR) Problem List - Problems (1) Atrial flutter Assessment/Plan: On diltiazem for HR control; PO diltiazem, and titrate off IV drip. Digoxin loading has aided in controlling HR; start daily dose. Keep digoxin level 0.5-1.0. On apixaban for anticoagulation. ECHO: unable to assess LVEF; repeat when pt able to turn on left side for better windows (or get MUGA).If LVEF is significantly reduced, change diltiazem to beta nico (appears to tolerate lopressor IVP prn presently). Code(s): I48.92 - UNSPECIFIED ATRIAL FLUTTER (2) Morbid obesity Code(s): E66.01 - MORBID (SEVERE) OBESITY DUE TO EXCESS CALORIES (3) Hyperlipidemia Assessment/Plan: elevated LDL cholesterol. Start statin (LFTs now normal); keep LDL cholesterol < 70 mg/dL. Code(s): E78.5 - HYPERLIPIDEMIA, UNSPECIFIED (4) HTN (hypertension) Assessment/Plan: On diltiazem. F/u ECHO for LVEF, wall thickness, chamber sizes, valve status (unable to assess LVEF initially; repeat ECHO today). Code(s): I10 - ESSENTIAL (PRIMARY) HYPERTENSION (5) Diabetes Code(s): E11.9 - TYPE 2 DIABETES MELLITUS WITHOUT COMPLICATIONS (6) Boaz cardiac risk >20% in next 10 years Assessment/Plan: TNI negative x 2. BP and glucose control. Keep LDL cholesterol < 70 mg/dL. Smoking cessation. Dietary consult; weight loss. Exercise will be important in the future. Coronary artery evaluation when stable (stress MIBI and/or coronary angiogram). Code(s): Z91.89 - OTH PERSONAL RISK FACTORS, NOT ELSEWHERE CLASSIFIED (7) Elevated LFTs Assessment/Plan: resolved. Code(s): R94.5 - ABNORMAL RESULTS OF LIVER FUNCTION STUDIES (8) Cigarette nicotine dependence Assessment/Plan: The importance of stopping was discussed (pt's mother was in room; pt says she gets defensive, because her mother is always lecturing her). Code(s): F17.210 - NICOTINE DEPENDENCE, CIGARETTES, UNCOMPLICATED (9) Alcoholism Assessment/Plan: Detox protocol continues. Code(s): F10.20 - ALCOHOL DEPENDENCE, UNCOMPLICATED (10) Cellulitis Assessment/Plan: chronic erythema; now off antibiotics. Code(s): L03.90 - CELLULITIS, UNSPECIFIED (11) Sleep apnea Assessment/Plan: workup, if not already diagnosed. Code(s): G47.30 - SLEEP APNEA, UNSPECIFIED (12) Ascites Code(s): R18.8 - OTHER ASCITES (13) Interstitial lung disease Code(s): J84.9 - INTERSTITIAL PULMONARY DISEASE, UNSPECIFIED (14) CHF (congestive heart failure) Code(s): I50.9 - HEART FAILURE, UNSPECIFIED (15) Hyperkalemia Code(s): E87.5 - HYPERKALEMIA (16) Renal dysfunction Code(s): N28.9 - DISORDER OF KIDNEY AND URETER, UNSPECIFIED (17) Respiratory failure Code(s): J96.90 - RESPIRATORY FAILURE, UNSP, UNSP W HYPOXIA OR HYPERCAPNIA Assessment/Plan CCU time spent: 35 minutes.
[2018-12-03 05:32] LABS: HEMATOCRIT 48.6 % (32.4-45.2); HEMOGLOBIN 15.1 GM/dL (10.7-15.3); LYMPH % 1.8 % (8-40); MEAN CELL VOLUME 103.2 fl (80-96); MEAN PLT VOLUME 9.7 fl (7.5-11.1); MONO % 1.8 % (3.8-10.2); NEUT % 96.4 % (42.8-82.8); PLATELET COUNT 117 K/MM3 (134-434); RBC 4.71 M/mm3 (3.60-5.2); RDW 15.1 % (11.6-15.6); WHITE BLOOD COUNT 11.7 K/mm3 (4.0-10.0)
[2018-12-03 06:02] LABS: ALBUMIN 2.7 g/dl (3.4-5.0); ALK PHOS 88 U/L (45-117); ANION GAP 5 MMOL/L (8-16); BILIRUBIN,TOTAL 0.7 mg/dL (0.2-1); CALCIUM 8.4 mg/dL (8.5-10.1); CHLORIDE 110 mmol/L (98-107); CO2 37 mmol/L (21-32); CREATININE 2.1 mg/dL (0.55-1.3); POTASSIUM 5.3 mmol/L (3.5-5.1); SGOT/AST 12 U/L (15-37); SGPT/ALT 21 U/L (13-61); SODIUM 152 mmol/L (136-145); TOT PROT 5.9 g/dl (6.4-8.2)
[2018-12-03 06:15] LABS: BLOOD UREA NITROGEN 129 mg/dL (7-18); GLUCOSE,RANDOM 306 mg/dL (74-106)
[2018-12-03] MEDS: INSULIN SLIDING SCALE (NOVOLOG) 1 VIAL SQ SCH ×4 (06:26→22:36)
[2018-12-03] MEDS: ALBUTEROL SO4 2.5/IPRATROPIUM 0.5 INH SOL 3 ML VIAL.NEB. NEB SCH ×4 (07:01→21:15)
--- NOTE | 2018-12-03 07:50 | PN ---
Physical Exam: SUBJECTIVE: Patient seen and examined. Denies SOB. Endorses being hungry. Denies pain OBJECTIVE: Vital Signs Period Temp Pulse Resp BP Sys/Gregorio Pulse Ox Last 24 Hr 98.6 F-98.9 F 68-98 15-24 117-137/68-76 93-97 GENERAL: Awake, alert, following commands HEAD: NC/AT EYES: PERRL, EOMI ENT: Moist mucous membranes. maxillary lip wound (hemostatic) NECK: supple LUNGS: b/l coarse breath sounds throughout with good air entry HEART: A-fib, normal rate, no murmur appreciated ABDOMEN: Soft, protuberant, edematous, mild distended, normoactive bowel sounds BUE: B/l hand swelling, not likely cellulitis, sensation and ROM intact LOWER EXTREMITIES: 2+ pulses, warm, well-perfused NEUROLOGICAL: no focal deficit. follows commands Active Medications Generic Name Dose Route Start Last Admin Trade Name Freq PRN Reason Stop Dose Admin Albuterol/Ipratropium 1 amp 11/25/18 20:10 12/03/18 07:01 Duoneb - NEB 1 amp RQID BRIDGETTE Administration Apixaban 5 mg 11/24/18 10:00 12/02/18 21:16 Eliquis - PO Not Given BID [facility] Budesonide/Formoterol Fumarate 1 puff 11/24/18 10:00 12/02/18 10:58 Symbicort 160/4.5mcg - IH Not Given DAILY [facility] Digoxin 0.125 mg 12/02/18 12:15 12/02/18 14:00 Lanoxin Injection - IVPUSH 0.125 mg DAILY [facility] Administration Furosemide 40 mg 12/03/18 07:46 Lasix Injection - IVPUSH 12/03/18 07:47 ONCE ONE Gabapentin 100 mg 11/24/18 10:00 12/02/18 10:57 Neurontin - PO Not Given DAILY [facility] Diltiazem HCl 125 mg/ Sodium 125 mls @ 7 mls/hr 12/01/18 11:45 12/03/18 06:29 Chloride IVPB 10 mg/hr TITR BRIDGETTE 10 mls/hr Titration Protocol 7 MG/HR Methylprednisolone Sodium 260 mls @ 130 mls/hr 12/02/18 18:15 12/02/18 19:20 Succinate 1,250 mg/ Dextrose IVPB 130 mls/hr DAILY [facility] Administration Insulin Aspart 1 vial 11/24/18 11:00 12/03/18 06:26 Novolog Vial Sliding Scale - SQ 8 units ACHS [facility] Administration Protocol Insulin Detemir 10 units 11/24/18 22:00 12/02/18 21:28 Levemir Vial SQ 10 units HS [facility] Administration Metoprolol Tartrate 5 mg 11/28/18 21:33 12/02/18 06:06 Lopressor Injection - IVPUSH 5 mg Q4H PRN Administration HR >120 Multivitamins/Minerals/Vitamin C 1 tab 11/24/18 10:00 12/02/18 10:58 Tab-A-Vit - PO Not Given DAILY [facility] Pantoprazole Sodium 40 mg 12/02/18 22:00 12/02/18 21:32 Protonix Iv IVPUSH 40 mg BID [facility] Administration Thiamine HCl 200 mg 11/26/18 11:30 12/02/18 10:58 Vitamin B1 Injection - IVPB 200 mg DAILY [facility] Administration ASSESSMENT/PLAN: The pt is a 53F with a PMH of COPD, acute/chronic EtOH abuse (several glasses of rum daily), long-term tobacco abuse, TRINH, morbid obesity, DM, HTN, hyperlipidemia, cellulites, metabolic syndrome who was transferred to ICU due to worsening respiratory failure 11/27 - Patient w/ worsening mentation and respiratory status throughout the morning. Worsening repeat ABG. Decision was made to intubate for hypercapnic/ hypoxic respiratory failure 11/28 - Vented, ABG improving 12/01 - Extubated to [facility]. OGT D/C'ed. 12/02 - +PR3, plan for kidney bx in 7d (ASA held) 1/2 - Cyclophosphamide and Methylprednisolone Neuro ETOH abuse, dependence -Patient no longer likely to withdraw given length of time in hospital Tobacco abuse -Educated -Nicotine patch CV Cardiology Dr Ronny Santana-flutter -Apixaban -Lopressor IV push PRN -Diltiazem gtt -Digoxin HTN -Antihypertensives held /2 relative hypotension Hypervolemia w/ pulmonary congestion -Lasix 40mg IV PRN Pulm Acute hypercapnic respiratory failure due to pulmonary edema can Not R/O CHF vs copd exacerbation ILD new diagnosed on CT -Continue symbicort -Continue broncodilators -s/p intubation 11/27/2018 for acute decompensation --Extubated 12/01/2018 -On BiPap GI Nutrition -Trial dysphagia diet GI Ppx -Protonix PITO -IVF held 2/2 respiratory edema/volume overload -Avoid nephrotoxic agents -Nephrology consulted Hyperkalemia -Lasix 40mg IV once today Heme DVT Ppx: scds, Apixaban ID BLE Cellulitis -Not likely infectious in etiology -s/p Abx course -no further abx at this time Endo DM -BGM ACHS -ISS Morbid obesity -Educated about low calories diet , losing weight , daily exercise LTD Sanju- 11/25/2018 PIV Dispo: Patient continues to require ICU level of care. Visit type - Emergency Visit Emergency Visit: Yes ED Registration Date: 11/23/18 Care time: The patient presented to the Emergency Department on the above date and was hospitalized for further evaluation of their emergent condition. - New Patient This patient is new to me today: No - Critical Care Critical Care patient: Yes Total Critical Care Time (in minutes): 35 Critical Care Statement: The care of this patient involved high complexity decision making to prevent further life threatening deterioration of the patient 's condition and/or to evaluate & treat vital organ system(s) failure or risk of failure.
[2018-12-03] MEDS ORDERED: FUROSEMIDE 40 MG/4 ML INJECTABLE VIAL IVPUSH ONE (08:30)
[2018-12-03] MEDS ORDERED: PT OWN MED DRAWER 7, Y5N ONE (08:50)
[2018-12-03] MEDS: PANTOPRAZOLE SODIUM 40 MG VIAL IVPUSH SCH ×2 (09:10→22:35)
[2018-12-03] MEDS: DIGOXIN 0.5 MG/2 ML AMPUL IVPUSH SCH (09:11)
[2018-12-03] MEDS: APIXABAN 5 MG TABLET PO SCH ×2 (09:11→22:39)
[2018-12-03] MEDS: WATER IVPB SCH (09:12)
[2018-12-03] MEDS: METHYLPREDNISOLONE NA SUCC IVPB SCH (09:12)
[2018-12-03] MEDS: DEXTROSE 5% IVPB SCH (09:12)
[2018-12-03] MEDS: MULTIVITAMINS (DAILY MVI) TABLET (FP) PO SCH (09:12)
[2018-12-03] MEDS: GABAPENTIN 100 MG CAPSULE (FP) PO SCH (09:12)
[2018-12-03] MEDS: THIAMINE HCL 200 MG/2 ML VIAL IVPB SCH (09:13)
[2018-12-03 09:23] LABS: ALLENS TEST POSITIVE; ARTERIAL BLD GAS O2 SATURATION 93.4 % (90-98.9); ARTERIAL BLOOD GAS BASE EXCESS 10.3 meq/l (-2-2); ARTERIAL BLOOD GAS PCO2 64.1 mmHg (35-45); ARTERIAL BLOOD GAS PO2 73.7 mmHg (80-100)
--- NOTE | 2018-12-03 09:59 | PN ---
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 (short form) - Note 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: on BIPAP responding to commands she can not sit up, or move much Vital Signs - 24 hr 12/02/18 12/02/18 12/02/18 20:00 21:04 21:05 Temperature 98.7 F Pulse Rate 69 98 H Respiratory 21 H Rate Blood Pressure 126/71 O2 Sat by Pulse 96 96 Oximetry (%) 12/02/18 12/03/18 12/03/18 22:06 00:02 00:05 Temperature Pulse Rate 68 69 Respiratory 15 20 Rate Blood Pressure 125/72 121/69 O2 Sat by Pulse 96 Oximetry (%) 12/03/18 12/03/18 12/03/18 02:00 02:35 03:36 Temperature 98.9 F Pulse Rate 70 Respiratory 20 Rate Blood Pressure 124/73 O2 Sat by Pulse 96 95 Oximetry (%) 12/03/18 12/03/18 12/03/18 04:00 06:30 08:43 Temperature 98.6 F Pulse Rate 71 70 72 Respiratory 22 H 19 18 Rate Blood Pressure 128/71 130/74 129/72 O2 Sat by Pulse 97 Oximetry (%) 12/03/18 12/03/18 12/03/18 09:00 09:11 09:30 Temperature Pulse Rate 74 Respiratory 18 Rate Blood Pressure O2 Sat by Pulse 96 94 L Oximetry (%) 12/03/18 12/03/18 12/03/18 10:00 12:00 12:30 Temperature 98 F Pulse Rate 70 90 Respiratory 18 20 Rate Blood Pressure 127/69 127/67 O2 Sat by Pulse 93 L Oximetry (%) 12/03/18 12/03/18 14:00 18:00 Temperature 98.4 F Pulse Rate 100 H 74 Respiratory 18 17 Rate Blood Pressure 134/74 135/64 O2 Sat by Pulse Oximetry (%) Current Medications Generic Name Dose Route Start Last Admin Trade Name Freq PRN Reason Stop Dose Admin Albuterol/Ipratropium 1 amp 11/25/18 20:10 12/03/18 16:55 Duoneb - NEB 1 amp RQID [facility] Administration Apixaban 5 mg 11/24/18 10:00 12/03/18 09:11 Eliquis - PO Not Given BID [facility] Budesonide/Formoterol Fumarate 1 puff 11/24/18 10:00 12/03/18 17:36 Symbicort 160/4.5mcg - IH 1 puff DAILY [facility] Administration Digoxin 0.125 mg 12/02/18 12:15 12/03/18 09:11 Lanoxin Injection - IVPUSH 0.125 mg DAILY [facility] Administration Gabapentin 100 mg 11/24/18 10:00 12/03/18 09:12 Neurontin - PO Not Given DAILY [facility] Diltiazem HCl 125 mg/ Sodium 125 mls @ 7 mls/hr 12/01/18 11:45 12/03/18 17:47 Chloride IVPB 10 mg/hr TITR [facility] 10 mls/hr Administration Protocol 7 MG/HR Methylprednisolone Sodium 260 mls @ 130 mls/hr 12/02/18 18:15 12/03/18 09:12 Succinate 1,250 mg/ Dextrose IVPB 130 mls/hr DAILY [facility] Administration Insulin Aspart 1 vial 12/03/18 10:32 12/03/18 17:47 Novolog Vial Sliding Scale - SQ 10 units ACHS [facility] Administration Protocol Insulin Detemir 10 units 11/24/18 22:00 12/02/18 21:28 Levemir Vial SQ 10 units HS [facility] Administration Metoprolol Tartrate 5 mg 11/28/18 21:33 12/02/18 06:06 Lopressor Injection - IVPUSH 5 mg Q4H PRN Administration HR >120 Multivitamins/Minerals/Vitamin C 1 tab 11/24/18 10:00 12/03/18 09:12 Tab-A-Vit - PO Not Given DAILY [facility] Pantoprazole Sodium 40 mg 12/02/18 22:00 12/03/18 09:10 Protonix Iv IVPUSH 40 mg BID [facility] Administration Thiamine HCl 200 mg 11/26/18 11:30 12/03/18 09:13 Vitamin B1 Injection - IVPB 200 mg DAILY [facility] Administration Laboratory Results - last 24 hr 12/02/18 12/02/18 12/03/18 16:42 21:26 05:15 WBC 11.7 H RBC 4.71 Hgb 15.1 Hct 48.6 H MCV 103.2 H MCH 32.0 MCHC 31.0 L RDW 15.1 Plt Count 117 L D MPV 9.7 Absolute Neuts (auto) 11.2 H Neutrophils % 96.4 H Neutrophils % (Manual) 98.0 H Band Neutrophils % 0.0 Lymphocytes % 1.8 L D Lymphocytes % (Manual) 1.0 L Monocytes % 1.8 L D Monocytes % (Manual) 1 L Eosinophils % 0.0 D Eosinophils % (Manual) 0.0 Basophils % 0.0 Basophils % (Manual) 0.0 Myelocytes % (Man) 0 Promyelocytes % (Man) 0 Blast Cells % (Manual) 0 Nucleated RBC % 0 Metamyelocytes 0 Hypochromia 0 Platelet Estimate Decreased Polychromasia 0 Poikilocytosis 0 Anisocytosis 1+ Microcytosis 0 Macrocytosis 1+ Tear Drop Cells 1+ Ovalocytes 1+ Anticoagulation Therapy Puncture Site ABG pH ABG pCO2 at Pt Temp ABG pO2 at Pt Temp ABG HCO3 ABG O2 Sat (Measured) ABG O2 Content ABG Base Excess Mendoza Test O2 Delivery Device Oxygen Flow Rate Vent Mode Vent Rate Mechanical Rate Pressure Support Vent Sodium Potassium Chloride Carbon Dioxide Anion Gap BUN Creatinine Creat Clearance w eGFR POC Glucometer 185.51754 [phone] Random Glucose Calcium Total Bilirubin AST ALT Alkaline Phosphatase Troponin I Total Protein Albumin Urine Color Urine Appearance Urine pH Ur Specific [place] Urine Protein Urine Glucose (UA) Urine Ketones Urine Blood Urine Nitrite Urine Bilirubin Urine Urobilinogen Ur Leukocyte Esterase 12/03/18 12/03/18 12/03/18 05:15 09:13 11:19 WBC RBC Hgb Hct MCV MCH MCHC RDW Plt Count MPV Absolute Neuts (auto) Neutrophils % Neutrophils % (Manual) Band Neutrophils % Lymphocytes % Lymphocytes % (Manual) Monocytes % Monocytes % (Manual) Eosinophils % Eosinophils % (Manual) Basophils % Basophils % (Manual) Myelocytes % (Man) Promyelocytes % (Man) Blast Cells % (Manual) Nucleated RBC % Metamyelocytes Hypochromia Platelet Estimate Polychromasia Poikilocytosis Anisocytosis Microcytosis Macrocytosis Tear Drop Cells Ovalocytes Anticoagulation Therapy No Result Required. Puncture Site Right radial ABG pH 7.40 ABG pCO2 at Pt Temp 64.1 H* ABG pO2 at Pt Temp 73.7 L ABG HCO3 38.6 H ABG O2 Sat (Measured) 93.4 ABG O2 Content No Result Required. ABG Base Excess 10.3 H Mendoza Test Positive O2 Delivery Device No Result Required. Oxygen Flow Rate No Result Required. Vent Mode No Result Required. Vent Rate No Result Required. Mechanical Rate No Result Required. Pressure Support Vent No Result Required. Sodium 152 H Potassium 5.3 H Chloride 110 H Carbon Dioxide 37 H Anion Gap 5 L BUN 129 H* Creatinine 2.1 H Creat Clearance w eGFR 24.54 POC Glucometer [phone] Random Glucose 306 H* Calcium 8.4 L Total Bilirubin 0.7 AST 12 L ALT 21 Alkaline Phosphatase 88 Troponin I Total Protein 5.9 L Albumin 2.7 L Urine Color Urine Appearance Urine pH Ur Specific [place] Urine Protein Urine Glucose (UA) Urine Ketones Urine Blood Urine Nitrite Urine Bilirubin Urine Urobilinogen Ur Leukocyte Esterase 12/03/18 12/03/18 12/03/18 12:10 15:00 17:21 WBC RBC Hgb Hct MCV MCH MCHC RDW Plt Count MPV Absolute Neuts (auto) Neutrophils % Neutrophils % (Manual) Band Neutrophils % Lymphocytes % Lymphocytes % (Manual) Monocytes % Monocytes % (Manual) Eosinophils % Eosinophils % (Manual) Basophils % Basophils % (Manual) Myelocytes % (Man) Promyelocytes % (Man) Blast Cells % (Manual) Nucleated RBC % Metamyelocytes Hypochromia Platelet Estimate Polychromasia Poikilocytosis Anisocytosis Microcytosis Macrocytosis Tear Drop Cells Ovalocytes Anticoagulation Therapy Puncture Site ABG pH ABG pCO2 at Pt Temp ABG pO2 at Pt Temp ABG HCO3 ABG O2 Sat (Measured) ABG O2 Content ABG Base Excess Mendoza Test O2 Delivery Device Oxygen Flow Rate Vent Mode Vent Rate Mechanical Rate Pressure Support Vent Sodium Potassium Chloride Carbon Dioxide Anion Gap BUN Creatinine Creat Clearance w eGFR POC Glucometer [phone] Random Glucose Calcium Total Bilirubin AST ALT Alkaline Phosphatase Troponin I 0.07 H Total Protein Albumin Urine Color Ltyellow Urine Appearance Slcloudy Urine pH 5.0 Ur Specific [place] 1.012 Urine Protein Negative Urine Glucose (UA) 3+ H Urine Ketones Negative Urine Blood Negative Urine Nitrite Negative Urine Bilirubin Negative Urine Urobilinogen Negative Ur Leukocyte Esterase Negative sedated S1 S2 RRR Lungs decreased breath sounds Abd- soft, NT,obese, ND edema + PLAN In ICU - monitor O2 sat Ativan prn for withdrawal rate is controlled 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 Hematology carmenal noted spoke with ICU team -- pt started on pulse steroids, she will start Cyclophosphamide today spoke with aunt- Shital Pitt - aware of critical condition Problem List - Problems (1) Acute on chronic respiratory failure with hypoxia and hypercapnia Code(s): J96.21 - ACUTE AND CHRONIC RESPIRATORY FAILURE WITH HYPOXIA; J96.22 - ACUTE AND CHRONIC RESPIRATORY FAILURE WITH HYPERCAPNIA (2) Acute renal failure Code(s): N17.9 - ACUTE KIDNEY FAILURE, UNSPECIFIED (3) Acute respiratory failure with hypoxia and hypercapnia Code(s): J96.01 - ACUTE RESPIRATORY FAILURE WITH HYPOXIA; J96.02 - ACUTE RESPIRATORY FAILURE WITH HYPERCAPNIA (4) Alcoholism Code(s): F10.20 - ALCOHOL DEPENDENCE, UNCOMPLICATED (5) Atrial flutter Code(s): I48.92 - UNSPECIFIED ATRIAL FLUTTER (6) Bilateral lower extremity edema Code(s): R60.0 - LOCALIZED EDEMA
[2018-12-03 10:17] LABS: ANISOCYTOSIS 1+; MACROCYTOSIS 1+; OVALOCYTE 1+; PLATELET ESTIMATE DECREASED; TEAR DROP CELLS 1+
--- NOTE | 2018-12-03 10:46 | PN ---
Teaching Attending Note Name of Resident: Heriberto Urena ATTENDING PHYSICIAN STATEMENT I saw and evaluated the patient. I reviewed the resident's note and discussed the case with the resident. I agree with the resident's findings and plan as documented. SUBJECTIVE: Patient seen and examined in the ICU. Lethargic on NIPPV. Arousable to voice and able to follow simple commands. ABG is improving. To be started on cyclophosphamide and high dose steroids due to multi-organ involvement. CXR: increasing effusion / congestion right base OBJECTIVE: Intake & Output 11/30/18 12/01/18 12/02/18 12/03/18 23:59 23:59 23:59 23:59 Intake Total 1405.2 1131.9 399.3 370 Output Total 1400 2500 3900 1000 Balance 5.2 -1368.1 -3500.7 -630 Weight 276 lb 3.2 oz 276 lb 7.355 oz 276 lb 3.827 oz 264 lb 6 oz Last Vital Signs Temp Pulse Resp BP Pulse Ox 98.6 F 74 18 129/72 96 12/03/18 06:30 12/03/18 09:11 12/03/18 09:00 12/03/18 08:43 12/03/18 09:00 Active Medications Albuterol/Ipratropium (Duoneb -) 1 amp NEB RQID [facility] Last Admin: 12/03/18 07:01 Dose: 1 amp Apixaban (Eliquis -) 5 mg PO BID [facility] Last Admin: 12/03/18 09:11 Dose: Not Given Budesonide/Formoterol Fumarate (Symbicort 160/4.5mcg -) 1 puff IH DAILY [facility] Last Admin: 12/02/18 10:58 Dose: Not Given Digoxin (Lanoxin Injection -) 0.125 mg IVPUSH DAILY [facility] Last Admin: 12/03/18 09:11 Dose: 0.125 mg Gabapentin (Neurontin -) 100 mg PO DAILY [facility] Last Admin: 12/03/18 09:12 Dose: Not Given Diltiazem HCl 125 mg/ Sodium (Chloride) 125 mls @ 7 mls/hr IVPB TITR [facility]; Protocol Last Titration: 12/03/18 06:29 Dose: 10 mg/hr, 10 mls/hr Methylprednisolone Sodium (Succinate 1,250 mg/ Dextrose) 260 mls @ 130 mls/hr IVPB DAILY [facility] Last Admin: 12/03/18 09:12 Dose: 130 mls/hr Insulin Aspart (Novolog Vial Sliding Scale -) 1 vial SQ ACHS [facility]; Protocol Insulin Detemir (Levemir Vial) 10 units SQ HS [facility] Last Admin: 12/02/18 21:28 Dose: 10 units Metoprolol Tartrate (Lopressor Injection -) 5 mg IVPUSH Q4H PRN PRN Reason: HR >120 Last Admin: 12/02/18 06:06 Dose: 5 mg Multivitamins/Minerals/Vitamin C (Tab-A-Vit -) 1 tab PO DAILY [facility] Last Admin: 12/03/18 09:12 Dose: Not Given Pantoprazole Sodium (Protonix Iv) 40 mg IVPUSH BID [facility] Last Admin: 12/03/18 09:10 Dose: 40 mg Thiamine HCl (Vitamin B1 Injection -) 200 mg IVPB DAILY [facility] Last Admin: 12/03/18 09:13 Dose: 200 mg Gen: Lethargic but arousabe on NIPPV Heart: RRR Lung: distant breath sounds Abd: soft, nontender Ext: + edema VAT CLEANER: Lethargic, non-focal Laboratory Results - last 24 hr 12/02/18 12/02/18 12/02/18 12:07 16:42 21:26 WBC RBC Hgb Hct MCV MCH MCHC RDW Plt Count MPV Absolute Neuts (auto) Neutrophils % Neutrophils % (Manual) Band Neutrophils % Lymphocytes % Lymphocytes % (Manual) Monocytes % Monocytes % (Manual) Eosinophils % Eosinophils % (Manual) Basophils % Basophils % (Manual) Myelocytes % (Man) Promyelocytes % (Man) Blast Cells % (Manual) Nucleated RBC % Metamyelocytes Hypochromia Platelet Estimate Polychromasia Poikilocytosis Anisocytosis Microcytosis Macrocytosis Tear Drop Cells Ovalocytes Anticoagulation Therapy Puncture Site ABG pH ABG pCO2 at Pt Temp ABG pO2 at Pt Temp ABG HCO3 ABG O2 Sat (Measured) ABG O2 Content ABG Base Excess Mendoza Test O2 Delivery Device Oxygen Flow Rate Vent Mode Vent Rate Mechanical Rate Pressure Support Vent Sodium Potassium Chloride Carbon Dioxide Anion Gap BUN Creatinine Creat Clearance w eGFR POC Glucometer 124.58024 185.04052 228.92157 Random Glucose Calcium Total Bilirubin AST ALT Alkaline Phosphatase Total Protein Albumin 12/03/18 12/03/18 12/03/18 05:15 05:15 09:13 WBC 11.7 H RBC 4.71 Hgb 15.1 Hct 48.6 H MCV 103.2 H MCH 32.0 MCHC 31.0 L RDW 15.1 Plt Count 117 L D MPV 9.7 Absolute Neuts (auto) 11.2 H Neutrophils % 96.4 H Neutrophils % (Manual) 98.0 H Band Neutrophils % 0.0 Lymphocytes % 1.8 L D Lymphocytes % (Manual) 1.0 L Monocytes % 1.8 L D Monocytes % (Manual) 1 L Eosinophils % 0.0 D Eosinophils % (Manual) 0.0 Basophils % 0.0 Basophils % (Manual) 0.0 Myelocytes % (Man) 0 Promyelocytes % (Man) 0 Blast Cells % (Manual) 0 Nucleated RBC % 0 Metamyelocytes 0 Hypochromia 0 Platelet Estimate Decreased Polychromasia 0 Poikilocytosis 0 Anisocytosis 1+ Microcytosis 0 Macrocytosis 1+ Tear Drop Cells 1+ Ovalocytes 1+ Anticoagulation Therapy No Result Required. Puncture Site Right radial ABG pH 7.40 ABG pCO2 at Pt Temp 64.1 H* ABG pO2 at Pt Temp 73.7 L ABG HCO3 38.6 H ABG O2 Sat (Measured) 93.4 ABG O2 Content No Result Required. ABG Base Excess 10.3 H Mendoza Test Positive O2 Delivery Device No Result Required. Oxygen Flow Rate No Result Required. Vent Mode No Result Required. Vent Rate No Result Required. Mechanical Rate No Result Required. Pressure Support Vent No Result Required. Sodium 152 H Potassium 5.3 H Chloride 110 H Carbon Dioxide 37 H Anion Gap 5 L BUN 129 H* Creatinine 2.1 H Creat Clearance w eGFR 24.54 POC Glucometer Random Glucose 306 H* Calcium 8.4 L Total Bilirubin 0.7 AST 12 L ALT 21 Alkaline Phosphatase 88 Total Protein 5.9 L Albumin 2.7 L ASSESSMENT AND PLAN: Acute on Chronic Hypoxic and Hypercapneic Respiratory Failure Acute COPD Exacerbation Morbid Obesity Obstructive Sleep Apnea/Obesity Hypoventilation Syndrome Suspect Right Heart Failure Volume Overload Mediastinal Lymphadenopathy Atrial Flutter with RVR Cellulitis Acute Kidney Injury Alcohol Abuse - For Cyclophosphamide / high dose steroids today - Inhaled bronchodilators - Lasix daily - Off ABX - Monitor urine output, creatinine - Follow potassium level - Rate control - Continue anticoagulation - Outpatient f/u of mediastinal lymphadenopathy - NIPPV support - Trial of VM O2 and PO intake if stable - ICU monitoring due to tenuous respiratory status Dr Dixon Critical care time spent in reviewing chart, evaluating patient and formulating plan 35 min
--- NOTE | 2018-12-03 12:37 | EKG ---
Test Reason : Blood Pressure : / mmHG Vent. Rate : 070 BPM Atrial Rate : 280 BPM P-R Int : 000 ms QRS Dur : 106 ms QT Int : 336 ms P-R-T Axes : -31 112 -57 degrees QTc Int : 362 ms ATRIAL FLUTTER WITH 4:1 A-V CONDUCTION LEFT POSTERIOR FASCICULAR BLOCK ABNORMAL ECG WHEN COMPARED WITH ECG OF 28-NOV-2018 13:30, VENT. RATE HAS DECREASED BY 66 BPM T WAVE INVERSION NOW EVIDENT IN ANTERIOR LEADS Confirmed by TRISH CASTILLO MD ([id number]) on 12/03/2018 12:36:42 PM Referred By: Candy SALEH Confirmed By:TRISH CASTILLO MD
--- NOTE | 2018-12-03 13:09 | PN ---
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, Physician History of Present Illness: Pt seen and examined at bedside. She remains in the ICU. She does require high flow oxygen and bipap. She is lethargic at times and when awake not very interactive. - Current Medication List Current Medications: Active Medications Albuterol/Ipratropium (Duoneb -) 1 amp NEB RQID [facility] Last Admin: 12/03/18 07:01 Dose: 1 amp Apixaban (Eliquis -) 5 mg PO BID [facility] Last Admin: 12/03/18 09:11 Dose: Not Given Budesonide/Formoterol Fumarate (Symbicort 160/4.5mcg -) 1 puff IH DAILY [facility] Last Admin: 12/02/18 10:58 Dose: Not Given Digoxin (Lanoxin Injection -) 0.125 mg IVPUSH DAILY [facility] Last Admin: 12/03/18 09:11 Dose: 0.125 mg Gabapentin (Neurontin -) 100 mg PO DAILY [facility] Last Admin: 12/03/18 09:12 Dose: Not Given Diltiazem HCl 125 mg/ Sodium (Chloride) 125 mls @ 7 mls/hr IVPB TITR [facility]; Protocol Last Titration: 12/03/18 06:29 Dose: 10 mg/hr, 10 mls/hr Methylprednisolone Sodium (Succinate 1,250 mg/ Dextrose) 260 mls @ 130 mls/hr IVPB DAILY [facility] Last Admin: 12/03/18 09:12 Dose: 130 mls/hr Insulin Aspart (Novolog Vial Sliding Scale -) 1 vial SQ ACHS [facility]; Protocol Last Admin: 12/03/18 11:28 Dose: 10 units Insulin Detemir (Levemir Vial) 10 units SQ HS [facility] Last Admin: 12/02/18 21:28 Dose: 10 units Metoprolol Tartrate (Lopressor Injection -) 5 mg IVPUSH Q4H PRN PRN Reason: HR >120 Last Admin: 12/02/18 06:06 Dose: 5 mg Multivitamins/Minerals/Vitamin C (Tab-A-Vit -) 1 tab PO DAILY [facility] Last Admin: 12/03/18 09:12 Dose: Not Given Pantoprazole Sodium (Protonix Iv) 40 mg IVPUSH BID [facility] Last Admin: 12/03/18 09:10 Dose: 40 mg Thiamine HCl (Vitamin B1 Injection -) 200 mg IVPB DAILY [facility] Last Admin: 12/03/18 09:13 Dose: 200 mg - Objective Vital Signs: Vital Signs Temperature 98 F 12/03/18 10:00 Pulse Rate 70 12/03/18 10:00 Respiratory Rate 18 12/03/18 10:00 Blood Pressure 127/69 12/03/18 10:00 O2 Sat by Pulse Oximetry (%) 94 L 12/03/18 09:30 Constitutional: Yes: Moderate Distress Eyes: Yes: Conjunctiva Clear Cardiovascular: Yes: S1, S2 Respiratory: Yes: On Venti-Mask Gastrointestinal: Yes: Soft, Abdomen, Obese Genitourinary: Yes: Bills Present Musculoskeletal: Yes: Muscle Weakness Edema: Yes Edema: LUE: 1+, RUE: 1+, LLE: 2+, RLE: 2+ Integumentary: Yes: Venous Stasis Changes Neurological: Yes: Lethargy Labs: CBC, BMP 12/03/18 05:15 12/03/18 05:15 INR, PTT INR 1.13 (0.83-1.09) H 11/23/18 16:40 - ....Imaging Chest X-ray: Report Reviewed Problem List - Problems (1) Hyperkalemia Code(s): E87.5 - HYPERKALEMIA (2) Acute on chronic respiratory failure with hypoxia and hypercapnia Code(s): J96.21 - ACUTE AND CHRONIC RESPIRATORY FAILURE WITH HYPOXIA; J96.22 - ACUTE AND CHRONIC RESPIRATORY FAILURE WITH HYPERCAPNIA (3) Acute renal failure Code(s): N17.9 - ACUTE KIDNEY FAILURE, UNSPECIFIED (4) Alcoholism Code(s): F10.20 - ALCOHOL DEPENDENCE, UNCOMPLICATED (5) Atrial flutter Code(s): I48.92 - UNSPECIFIED ATRIAL FLUTTER (6) Bilateral lower extremity edema Code(s): R60.0 - LOCALIZED EDEMA (7) COPD exacerbation Code(s): J44.1 - CHRONIC OBSTRUCTIVE PULMONARY DISEASE W (ACUTE) EXACERBATION Assessment/Plan Current Medications Generic Name Dose Route Start Last Admin Trade Name Freq PRN Reason Stop Dose Admin Albuterol/Ipratropium 1 amp 11/25/18 20:10 12/03/18 07:01 Duoneb - NEB 1 amp RQID [facility] Administration Apixaban 5 mg 11/24/18 10:00 12/03/18 09:11 Eliquis - PO Not Given BID [facility] Budesonide/Formoterol Fumarate 1 puff 11/24/18 10:00 12/02/18 10:58 Symbicort 160/4.5mcg - IH Not Given DAILY [facility] Digoxin 0.125 mg 12/02/18 12:15 12/03/18 09:11 Lanoxin Injection - IVPUSH 0.125 mg DAILY [facility] Administration Gabapentin 100 mg 11/24/18 10:00 12/03/18 09:12 Neurontin - PO Not Given DAILY [facility] Diltiazem HCl 125 mg/ Sodium 125 mls @ 7 mls/hr 12/01/18 11:45 12/03/18 06:29 Chloride IVPB 10 mg/hr TITR [facility] 10 mls/hr Titration Protocol 7 MG/HR Methylprednisolone Sodium 260 mls @ 130 mls/hr 12/02/18 18:15 12/03/18 09:12 Succinate 1,250 mg/ Dextrose IVPB 130 mls/hr DAILY [facility] Administration Insulin Aspart 1 vial 12/03/18 10:32 12/03/18 11:28 Novolog Vial Sliding Scale - SQ 10 units ACHS [facility] Administration Protocol Insulin Detemir 10 units 11/24/18 22:00 12/02/18 21:28 Levemir Vial SQ 10 units HS [facility] Administration Metoprolol Tartrate 5 mg 11/28/18 21:33 12/02/18 06:06 Lopressor Injection - IVPUSH 5 mg Q4H PRN Administration HR >120 Multivitamins/Minerals/Vitamin C 1 tab 11/24/18 10:00 12/03/18 09:12 Tab-A-Vit - PO Not Given DAILY [facility] Pantoprazole Sodium 40 mg 12/02/18 22:00 12/03/18 09:10 Protonix Iv IVPUSH 40 mg BID [facility] Administration Thiamine HCl 200 mg 11/26/18 11:30 12/03/18 09:13 Vitamin B1 Injection - IVPB 200 mg DAILY [facility] Administration Laboratory Tests 11/26/18 05:30 Proteinase 3 (PR3) 46.0 H p-ANCA 1:1280 H Impression 1. PITO 2. hyperkalemia 3. a-flutter 4. resp failure requiring bipap 5. DM 6. HTN 7. active smoker 8. etoh abuse 9. obesity 10. interstitial lung disease on CT scan 11. resp acidosis 12. COPD 13. positive pr3 Plan - cont to monitor renal function - pt has poor respiratory status - spoke to rheumatology today and they will evaluate pt. - pt has a positive pr3 and a positive p-anca, although the c-anca is negative - will repeat anca levels - pt is getting a dose of cytoxan - will wait on rheumatology to discuss treatment course - oncology input appreciated - discussed with ICU - cont lasix - treat potassium medically - keep pt net negative volume status - overall prognosis guarded - pt remains fluid overloaded - will follow closely
--- NOTE | 2018-12-03 14:40 | PN ---
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, Physician Chief Complaint: Pt remains lethargic, dyspneic, hypercapneic. History of Present Illness: 53 YO white woman with h/o COPD (placed on steroid course 2 days ago without relief) acute/chronic alcoholism (several glasses of rum daily), long-term cigarette smoker, sleep apnea, morbid obesity, DM, HTN, hyperlipidemia, chronic erythema of LEs with hx cellulitis, metabolic syndrome, who p/w SOB and wheezing similar to her prior COPD exacerbation. She additionally notes awakening in the middle of the night last night with visual hallucinations. She additionally notes abdominal swelling recently, believes she has an abdominal infection but does not know what kind. Denies h/o heart arrhythmia. She has noticed her lips are more blue than normal. - Current Medication List Current Medications: Active Medications Albuterol/Ipratropium (Duoneb -) 1 amp NEB RQID [facility] Last Admin: 12/03/18 13:12 Dose: 1 amp Apixaban (Eliquis -) 5 mg PO BID [facility] Last Admin: 12/03/18 09:11 Dose: Not Given Budesonide/Formoterol Fumarate (Symbicort 160/4.5mcg -) 1 puff IH DAILY [facility] Last Admin: 12/02/18 10:58 Dose: Not Given Digoxin (Lanoxin Injection -) 0.125 mg IVPUSH DAILY [facility] Last Admin: 12/03/18 09:11 Dose: 0.125 mg Gabapentin (Neurontin -) 100 mg PO DAILY [facility] Last Admin: 12/03/18 09:12 Dose: Not Given Diltiazem HCl 125 mg/ Sodium (Chloride) 125 mls @ 7 mls/hr IVPB TITR [facility]; Protocol Last Titration: 12/03/18 06:29 Dose: 10 mg/hr, 10 mls/hr Methylprednisolone Sodium (Succinate 1,250 mg/ Dextrose) 260 mls @ 130 mls/hr IVPB DAILY [facility] Last Admin: 12/03/18 09:12 Dose: 130 mls/hr Insulin Aspart (Novolog Vial Sliding Scale -) 1 vial SQ ACHS [facility]; Protocol Last Admin: 12/03/18 11:28 Dose: 10 units Insulin Detemir (Levemir Vial) 10 units SQ HS [facility] Last Admin: 12/02/18 21:28 Dose: 10 units Metoprolol Tartrate (Lopressor Injection -) 5 mg IVPUSH Q4H PRN PRN Reason: HR >120 Last Admin: 12/02/18 06:06 Dose: 5 mg Multivitamins/Minerals/Vitamin C (Tab-A-Vit -) 1 tab PO DAILY [facility] Last Admin: 12/03/18 09:12 Dose: Not Given Pantoprazole Sodium (Protonix Iv) 40 mg IVPUSH BID [facility] Last Admin: 12/03/18 09:10 Dose: 40 mg Thiamine HCl (Vitamin B1 Injection -) 200 mg IVPB DAILY [facility] Last Admin: 12/03/18 09:13 Dose: 200 mg - Objective Vital Signs: Vital Signs Temperature 98 F 12/03/18 10:00 Pulse Rate 90 12/03/18 12:00 Respiratory Rate 20 12/03/18 12:00 Blood Pressure 127/67 12/03/18 12:00 O2 Sat by Pulse Oximetry (%) 94 L 12/03/18 09:30 Constitutional: Yes: Anxious Eyes: Yes: WNL HENT: Yes: Other Neck: Yes: Decreased ROM Cardiovascular: Yes: S1 (varies in intensity), S2 Respiratory: Yes: Diminished, Intubated, Mechanically Ventilated Gastrointestinal: Yes: Soft ...Rectal Exam: Yes: Deferred Genitourinary: No: Anuria Musculoskeletal: Yes: Muscle Weakness Extremities: Yes: Cool Edema: Yes Edema: LLE: Trace, RLE: Trace Peripheral Pulses WNL: Yes Integumentary: Yes: Venous Stasis Changes Psychiatric: Yes: Other Labs: CBC, BMP 12/03/18 05:15 12/03/18 05:15 INR, PTT INR 1.13 (0.83-1.09) H 11/23/18 16:40 Abnormal Lab Results 12/04/18 12/04/18 12/05/18 05:15 15:00 05:30 WBC 13.0 H Hct 48.2 H MCV 104.8 H MCHC 30.4 L Plt Count 114 L Absolute Neuts (auto) 12.3 H Neutrophils % 94.6 H Neutrophils % (Manual) 98.0 H Lymphocytes % 1.9 L Lymphocytes % (Manual) 1.0 L Monocytes % 3.4 L Monocytes % (Manual) 0 L D ABG pCO2 at Pt Temp 73.2 H* ABG pO2 at Pt Temp 58.0 L ABG HCO3 41.1 H* ABG O2 Sat (Measured) 87.3 L ABG O2 Content ABG Base Excess 12.4 H Sodium Chloride Carbon Dioxide Anion Gap BUN Creatinine Random Glucose Magnesium AST Albumin 12/05/18 12/05/18 12/05/18 05:30 07:08 09:00 WBC Hct MCV MCHC Plt Count Absolute Neuts (auto) Neutrophils % Neutrophils % (Manual) Lymphocytes % Lymphocytes % (Manual) Monocytes % Monocytes % (Manual) ABG pCO2 at Pt Temp 72.7 H* ABG pO2 at Pt Temp 71.6 L D ABG HCO3 42.2 H* ABG O2 Sat (Measured) ABG O2 Content 25.1 H ABG Base Excess 12.1 H Sodium 165 H* 164 H* Chloride 120 H 119 H Carbon Dioxide 42 H 43 H Anion Gap 3 L 2 L BUN 121 H* 120 H* Creatinine 2.0 H 2.0 H Random Glucose 193 H 195 H Magnesium 3.2 H AST 14 L Albumin 3.3 L Problem List - Problems (1) Atrial flutter Assessment/Plan: On diltiazem for HR control; PO diltiazem when cleared by swallowing team, and then titrate off IV drip. Digoxin loading has aided in controlling HR; started daily dose. Keep digoxin level 0.5-1.0. On apixaban for anticoagulation. ECHO: unable to assess LVEF; repeat when pt able to turn on left side for better windows (or get MUGA).If LVEF is significantly reduced, change diltiazem to beta nico (appears to tolerate lopressor IVP prn presently). Code(s): I48.92 - UNSPECIFIED ATRIAL FLUTTER (2) Morbid obesity Code(s): E66.01 - MORBID (SEVERE) OBESITY DUE TO EXCESS CALORIES (3) Hyperlipidemia Assessment/Plan: elevated LDL cholesterol. Start statin (LFTs now normal); keep LDL cholesterol < 70 mg/dL. Code(s): E78.5 - HYPERLIPIDEMIA, UNSPECIFIED (4) HTN (hypertension) Assessment/Plan: On diltiazem (start PO when cleared by swallwoing team0. F/u ECHO for LVEF, wall thickness, chamber sizes, valve status when able to position pt for better windows.. Consider MUGA if unable to ottain LVEF from ECHO. Code(s): I10 - ESSENTIAL (PRIMARY) HYPERTENSION (5) Diabetes Code(s): E11.9 - TYPE 2 DIABETES MELLITUS WITHOUT COMPLICATIONS (6) Fowler cardiac risk >20% in next 10 years Assessment/Plan: TNI negative x 2. BP and glucose control. Keep LDL cholesterol < 70 mg/dL. Smoking cessation. Dietary consult; weight loss. Exercise will be important in the future. Coronary artery evaluation when stable (stress MIBI and/or coronary angiogram). Code(s): Z91.89 - OTH PERSONAL RISK FACTORS, NOT ELSEWHERE CLASSIFIED (7) Elevated LFTs Code(s): R94.5 - ABNORMAL RESULTS OF LIVER FUNCTION STUDIES (8) Cigarette nicotine dependence Code(s): F17.210 - NICOTINE DEPENDENCE, CIGARETTES, UNCOMPLICATED (9) Alcoholism Code(s): F10.20 - ALCOHOL DEPENDENCE, UNCOMPLICATED (10) Cellulitis Code(s): L03.90 - CELLULITIS, UNSPECIFIED (11) Ascites Code(s): R18.8 - OTHER ASCITES (12) Interstitial lung disease Assessment/Plan: F/u with senior construction manager. Moderate pulmonary HTN and RV hypokinesis. R/o sarcoid. R/o sleep apnea. Code(s): J84.9 - INTERSTITIAL PULMONARY DISEASE, UNSPECIFIED (13) CHF (congestive heart failure) Assessment/Plan: Elevated BNP. F/u BUn/Cr, electrolytes, daily weight, IS and Os,. ECHO repeat for LVEF when pt better able to cooperate (and move on left side); otherwise, consder MUGA for LVEF. Control of AF/flutter HR presently with diltiazem (will have to be changed if LVEF is significantly reduced). Code(s): I50.9 - HEART FAILURE, UNSPECIFIED (14) Hyperkalemia Assessment/Plan: treat per electronics test engineer; keep K+ level 4-4.5. Code(s): E87.5 - HYPERKALEMIA (15) Renal dysfunction Assessment/Plan: Deteriorating renal status; nephology w/u in progress. If biopsy is needed, ASA will be held. Code(s): N28.9 - DISORDER OF KIDNEY AND URETER, UNSPECIFIED (16) Respiratory failure Assessment/Plan: worsening respiratory status, despite CXR showing no acute process. ISLD. Acute CHF. RV hypokinesis (moderate; with moderate pulmonary HTN). F/u with senior construction manager. Code(s): J96.90 - RESPIRATORY FAILURE, UNSP, UNSP W HYPOXIA OR HYPERCAPNIA
[2018-12-03 15:44] LABS: URINE APPEARANCE SLCLOUDY; URINE BILIRUBIN NEGATIVE (<2.0 mg/dL); URINE COLOR LTYELLOW; URINE GLUCOSE (UA) 3+ (NEGATIVE); URINE KETONE NEGATIVE (NEGATIVE); URINE LEUK ESTERASE NEGATIVE (NEGATIVE); URINE NITRITE NEGATIVE (NEGATIVE); URINE PROTEIN NEGATIVE (NEGATIVE); URINE UROBILINOGEN NEGATIVE mg/dL (0.2-1.0)
--- NOTE | 2018-12-03 15:55 | PN ---
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, COMPRESSOR OPERATOR ADJUSTER - Note 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: Pt. discussed with Nurse and Dr. Amado. Pt. still not awake and alert enough for PO trials. Nurse also reports difficulty clearing secretions on her own and requires suctioning. Will attempt Speech/Swallow eval. tomorrow, .
--- NOTE | 2018-12-03 16:01 | CONSULT ---
Consult Consult Specialty:: Rheumatology - History of Present Illness History of Present Illness: 53 year old female, daily smoker and alcohol drinker, with a significant past medical history of advanced COPD O2 dependent, obesity, mediastinal and hilar adenopathy, hypertension, diabetes, hypothyroidism and atrial fibrillation, admitted with a 3 day history of shortness of breath and wheezing. On admission she had progression of respiratory failure, with confusion and blue lips and acute on chronic kidney disease. CXR on admission (11/23/18) reports with no acute pathology. CXR: : slight increased hilar markings along with increased interstitial changes, : mild infiltrate or atelectasis in the right middle lobe and right base. CTA of the chest reported with interstitial lung disease, mediastinal and hilar adenopathy and ascites. Sarcoidosis cannot be excluded. Creatinine on admission was 1.3 and at present time 2.1. Urinalysis today revealed glucose 3+ with no protein and no blood. EVONNE was 1:160 with homogeneous pattern. Proteinase-3: 46 and myeloperoxidase negative. pANCA 1: 1280 and c-ANCA negative. Anti-DNAds and anti-glomerular basal membrane antibody were negative and M spike was also negative, The patient was intubated and extubated 2 days ago. Presently on venti-mask. She is awake and does not answer questions. She has been treated with Solumedrol 40 mg/d. Today she received Cyclophosphamide 1250 mg (she has a BSA of 2.34, the dose was 534 mg/M2) and Solumedrol pulse 1250 mg. - History Source History Provided By: Medical Record - Past Medical History Cardio/Vascular: Yes: HTN Pulmonary: Yes: COPD, Sleep Apnea (r/o (morbid obesity; COPD)) ...: No Endocrine: Yes: Diabetes Mellitus - Past Surgical History Past Surgical History: Yes: Cholecystectomy - Alcohol/Substance Use Hx Alcohol Use: Yes (4 glasses of Rum) History of Substance Use: reports: None - Smoking History Smoking history: Current every day smoker Aproximately how many cigarettes per day: 3 - Social History Usual Living Arrangement: Other (roommate) ADL: Independent History of Recent Travel: No Home Medications - Allergies Allergies/Adverse Reactions: Allergies Allergy/AdvReac Type Severity Reaction Status Date / Time No Known Allergies Allergy Verified 11/23/18 16:10 - Home Medications Home Medications: Ambulatory Orders Albuterol Sulfate Inhaler - [Ventolin Hfa Inhaler -] 1 - 2 inh PO QID 11/23/18 Aspirin [ASA -] 81 mg PO DAILY 11/23/18 Budesonide/Formeterol Fumarate [SYMBICORT 160/4.5mcg -] 1 inh PO DAILY 11/23/18 Furosemide [Lasix] 40 mg PO DAILY 11/23/18 Gabapentin 100 mg PO DAILY 11/23/18 Glipizide 10 mg PO BID 11/23/18 Lisinopril [Prinivil] 10 mg PO DAILY 11/23/18 Metformin HCl [Glucophage] 500 mg PO BID 11/23/18 Multivitamins [Tab-A-Vit -] 1 tab PO DAILY 11/23/18 Salmeterol/Fluticasone [Advair 500Mcg/50Mcg -] 1 inh IH BID 11/23/18 Review of Systems - Review of Systems Constitutional: reports: Other (On ventimask. She does not answer questions.) Physical Exam Vital Signs: Vital Signs Temperature 98 F 12/03/18 10:00 Pulse Rate 100 H 12/03/18 14:00 Respiratory Rate 18 12/03/18 14:00 Blood Pressure 134/74 12/03/18 14:00 O2 Sat by Pulse Oximetry (%) 94 L 12/03/18 09:30 Constitutional: Yes: Mild Distress Eyes: Yes: WNL HENT: Yes: WNL Neck: Yes: WNL Cardiovascular: Yes: WNL Respiratory: Yes: Other (Few crackles in bases.) Gastrointestinal: Yes: WNL Musculoskeletal: Yes: Other (Puffiness in hands. No active joints.) Labs: CBC, BMP 12/03/18 05:15 12/03/18 05:15 Laboratory Tests 11/24/18 11/26/18 12/02/18 12:50 05:30 05:15 Calcium 8.4 L Phosphorus 6.9 H Magnesium 3.3 H Total Bilirubin AST ALT Alkaline Phosphatase Troponin I Total Protein 6.4 Albumin 2.9 L Urine Appearance Urine pH Ur Specific [place] Urine Protein Urine Glucose (UA) Urine Ketones Urine Blood Urine Nitrite Urine Bilirubin Urine Urobilinogen Ur Leukocyte Esterase YASH M-Peewee Not observed EVONNE Screen Positive H EVONNE Homogeneous Pattern 1:160 H c-ANCA <1:20 Proteinase 3 (PR3) 46.0 H p-ANCA 1:1280 H Atypical p-ANCA <1:20 Myeloperoxidase Ab <9.0 Double Strand DNA Ab <1 Glomerular Base Memb Ab 3 Hepatitis A Ab Total Negative Hep Bs Antigen Negative Hep Bs Antibody Reactive Influenza A (Rapid) Negative Influenza B (Rapid) Negative 12/03/18 12/03/18 12/03/18 05:15 12:10 15:00 Calcium 8.4 L Phosphorus Magnesium Total Bilirubin 0.7 AST 12 L ALT 21 Alkaline Phosphatase 88 Troponin I 0.07 H Total Protein 5.9 L Albumin 2.7 L Urine Appearance Slcloudy Urine pH 5.0 Ur Specific [place] 1.012 Urine Protein Negative Urine Glucose (UA) 3+ H Urine Ketones Negative Urine Blood Negative Urine Nitrite Negative Urine Bilirubin Negative Urine Urobilinogen Negative Ur Leukocyte Esterase Negative YASH M-Peewee EVONNE Screen EVONNE Homogeneous Pattern c-ANCA Proteinase 3 (PR3) p-ANCA Atypical p-ANCA Myeloperoxidase Ab Double Strand DNA Ab Glomerular Base Memb Ab Hepatitis A Ab Total Hep Bs Antigen Hep Bs Antibody Influenza A (Rapid) Influenza B (Rapid) Problem List - Problems (1) Acute on chronic respiratory failure with hypoxia and hypercapnia Assessment/Plan: The patient has history of COPD, probable interstitial lung disease and mediastinal adenopathy. On admission she had exacerbation of respiratory failure. Laboratory work-up with p-ANCA and Proteinase-3 positive., Elevation of creatinine -probable secondary to hemodinamic changes. Urine with normal sediment. It was suggested that the patient has granulomatosis with polyangiitis, however we would expect to see C-ANCA positive (and not P-ANCA positive), the lung changes are not specific, and she has no renal involvement ( limited disease with only lung involvement is possible). As the presentation and serology are not characteristic, I suggest to consider lung biopsy or other histology prior to administration of futher doses of cytotoxics or pulse steroids. I will discuss the case with Dr. Dixon and Jacobo Blackburn MD Code(s): J96.21 - ACUTE AND CHRONIC RESPIRATORY FAILURE WITH HYPOXIA; J96.22 - ACUTE AND CHRONIC RESPIRATORY FAILURE WITH HYPERCAPNIA
[2018-12-03] MEDS: BUDESONIDE/FORMETEROL FUMARATE 160/4.5 mcg INHALER IH SCH (17:36)
[2018-12-03] MEDS: DILTIAZEM INJECTION 125 MG in SODIUM CHLORIDE 100 ML IVPB SCH (17:47)
[2018-12-03] MEDS ORDERED: dilTIAZem HCL 30 MG TABLET (FP) PO SCH (18:00)
--- NOTE | 2018-12-03 18:31 | PN ---
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 (short form) - Note 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: PROGRESS NOTE: HEMATOLOGY-ONCOLOGY s/p extubation, on ventimask minimally engaging. opens eyes to auditory and tactile stimuli but not asnwering questiong or following commands. PE: Gen: NAD, breathing comfortably on ventimask, anasarca with dependent edema throughout HEENT: gene, swollen lips, breathing w. mouth open, dry mucous membranes, dried blood in oropharynx, no visible thrush lungs: anterior auscultation, +rhonchi b/l Abd: soft, morbidly obese Ext: scd's in place. 2+ Dp pulses. arvizu in place Active Medications Albuterol/Ipratropium (Duoneb -) 1 amp NEB RQID [facility] Last Admin: 12/03/18 16:55 Dose: 1 amp Apixaban (Eliquis -) 5 mg PO BID [facility] Last Admin: 12/03/18 09:11 Dose: Not Given Budesonide/Formoterol Fumarate (Symbicort 160/4.5mcg -) 1 puff IH DAILY [facility] Last Admin: 12/03/18 17:36 Dose: 1 puff Digoxin (Lanoxin Injection -) 0.125 mg IVPUSH DAILY [facility] Last Admin: 12/03/18 09:11 Dose: 0.125 mg Gabapentin (Neurontin -) 100 mg PO DAILY [facility] Last Admin: 12/03/18 09:12 Dose: Not Given Diltiazem HCl 125 mg/ Sodium (Chloride) 125 mls @ 7 mls/hr IVPB TITR [facility]; Protocol Last Admin: 12/03/18 17:47 Dose: 10 mg/hr, 10 mls/hr Methylprednisolone Sodium (Succinate 1,250 mg/ Dextrose) 260 mls @ 130 mls/hr IVPB DAILY [facility] Last Admin: 12/03/18 09:12 Dose: 130 mls/hr Insulin Aspart (Novolog Vial Sliding Scale -) 1 vial SQ ACHS [facility]; Protocol Last Admin: 12/03/18 17:47 Dose: 10 units Insulin Detemir (Levemir Vial) 10 units SQ HS [facility] Last Admin: 12/02/18 21:28 Dose: 10 units Metoprolol Tartrate (Lopressor Injection -) 5 mg IVPUSH Q4H PRN PRN Reason: HR >120 Last Admin: 12/02/18 06:06 Dose: 5 mg Multivitamins/Minerals/Vitamin C (Tab-A-Vit -) 1 tab PO DAILY [facility] Last Admin: 12/03/18 09:12 Dose: Not Given Pantoprazole Sodium (Protonix Iv) 40 mg IVPUSH BID [facility] Last Admin: 12/03/18 09:10 Dose: 40 mg Thiamine HCl (Vitamin B1 Injection -) 200 mg IVPB DAILY [facility] Last Admin: 12/03/18 09:13 Dose: 200 mg Laboratory Tests 11/26/18 05:30 YASH M-Peewee Not observed Serum YASH Interpret Pending YASH Interpretation Pending IEP IgG Pending IEP IgA Pending IEP IgM Pending EVONNE Screen Positive H EVONNE Homogeneous Pattern 1:160 H Proteinase 3 (PR3) 46.0 H p-ANCA 1:1280 H Atypical p-ANCA <1:20 Myeloperoxidase Ab <9.0 Double Strand DNA Ab <1 Glomerular Base Memb Ab 3 53 yr old man with COPD, current substance abuse (ETOH/nicotine), morbid obesity , DM, HTN, in ICU for acute hypercapnec hypoxic respiratory failure s/p extubation being evaluated for granulamatosis polyangitis. Problem list: Afib on eliquis PITO ETOH abuse morbid obesity respiratory failure granulamatosis polyangitis A/P - pt receiving high dose steriods initiated 12/02/2018 - cytoxin ordered yesterday but was unable to be given - plasma pheresis deferred at this time as it is not indicated - continuation of steroids to be determined in conjunction with rheumatology and nephrology recommendations
--- NOTE | 2018-12-03 20:55 | PN ---
Teaching Attending Note Name of Resident: Jonh Beavers ATTENDING PHYSICIAN STATEMENT I saw and evaluated the patient. I reviewed the resident's note and discussed the case with the resident. I agree with the resident's findings and plan as documented. SUBJECTIVE: Patient seen and examined Discussed with Rheumatology Last Vital Signs Temp Pulse Resp BP Pulse Ox 98.4 F 74 17 135/64 91 L 12/03/18 18:00 12/03/18 18:00 12/03/18 18:00 12/03/18 18:00 12/03/18 19:23 OBJECTIVE:On oxygen mask - s/p extubation Responsive to verbal stimuli with eye opening; noncommunicative dried blood and excoriations on lips Lungs-[poor inspiration Cor- RSR Abd - obese Bills SCD CBC, BMP 12/03/18 05:15 12/03/18 05:15 ASSESSMENT AND PLAN: Impression: Rheumatology has reservations about diagnosis of granulomatosis with polyangiitis as C-ANCA would expected to be positive rather than P-ANCA. Absence of hematuria also noted Problems of PITO, hypernatremia, lung abnormalities, mental status changes, hypoxemia,thrombocytopenia also evident. Little to add No role for plasmapheresis currently. Based upon discussion with rheumatology and reservations on diagnosis would with -hold cytoxan and further steroids. if dx is established immunotherapy with Rituxin and steroids would be a consideration.
[2018-12-03] MEDS: INSULIN (LEVEMIR) 100 UNITS/ML UNITS SQ SCH (22:37)
[2018-12-04 05:52] LABS: BASO % 0.4 % (0-2.0); EOS % 0.1 % (0-4.5); HEMATOCRIT 48.1 % (32.4-45.2); HEMOGLOBIN 14.8 GM/dL (10.7-15.3); LYMPH % 1.7 % (8-40); MCHC 30.8 g/dl (32.0-36.0); MONO % 3.1 % (3.8-10.2); NEUT % 94.7 % (42.8-82.8); PLATELET COUNT 127 K/MM3 (134-434); RBC 4.63 M/mm3 (3.60-5.2); RDW 15.5 % (11.6-15.6); WHITE BLOOD COUNT 11.7 K/mm3 (4.0-10.0)
[2018-12-04] MEDS: INSULIN SLIDING SCALE (NOVOLOG) 1 VIAL SQ SCH ×4 (06:23→22:15)
[2018-12-04 06:27] LABS: ALK PHOS 88 U/L (45-117); ANION GAP 1 MMOL/L (8-16); BILIRUBIN,TOTAL 0.9 mg/dL (0.2-1); CALCIUM 9.2 mg/dL (8.5-10.1); CHLORIDE 113 mmol/L (98-107); CO2 42 mmol/L (21-32); GLUCOSE,RANDOM 273 mg/dL (74-106); MAGNESIUM 3.5 mg/dL (1.8-2.4); PHOSPHOROUS 4.1 mg/dL (2.5-4.9); POTASSIUM 4.5 mmol/L (3.5-5.1); SGOT/AST 13 U/L (15-37); SGPT/ALT 22 U/L (13-61); SODIUM 156 mmol/L (136-145); TOT PROT 6.4 g/dl (6.4-8.2)
--- NOTE | 2018-12-04 07:10 | PN ---
Physical Exam: SUBJECTIVE: Patient seen and examined. Reports continued dyspnea w/o change. Denies pain otherwise. OBJECTIVE: Vital Signs Period Temp Pulse Resp BP Sys/Gregorio Pulse Ox Last 24 Hr 98 F-98.4 F 68-100 17-28 127-147/64-90 91-96 GENERAL: Awake, alert, unable to assess orientation HEAD: NC/AT EYES: PERRL, EOMI ENT: Moist mucous membranes. maxillary lip wound (hemostatic) NECK: supple LUNGS: b/l coarse breath sounds throughout with good air entry HEART: A-fib, normal rate, no murmur appreciated ABDOMEN: Soft, protuberant, edematous, mild distended, normoactive bowel sounds BUE: B/l hand swelling, not likely cellulitis, sensation and ROM intact LOWER EXTREMITIES: 2+ pulses, warm, well-perfused NEUROLOGICAL: no focal deficit. follows commands. Vocalizes but does not form words Active Medications Generic Name Dose Route Start Last Admin Trade Name Freq PRN Reason Stop Dose Admin Albuterol/Ipratropium 1 amp 11/25/18 20:10 12/03/18 21:15 Duoneb - NEB 1 amp RQID [facility] Administration Apixaban 5 mg 11/24/18 10:00 12/03/18 22:39 Eliquis - PO 5 mg BID [facility] Administration Budesonide/Formoterol Fumarate 1 puff 11/24/18 10:00 12/03/18 17:36 Symbicort 160/4.5mcg - IH 1 puff DAILY [facility] Administration Digoxin 0.125 mg 12/02/18 12:15 12/03/18 09:11 Lanoxin Injection - IVPUSH 0.125 mg DAILY [facility] Administration Gabapentin 100 mg 11/24/18 10:00 12/03/18 09:12 Neurontin - PO Not Given DAILY [facility] Diltiazem HCl 125 mg/ Sodium 125 mls @ 7 mls/hr 12/01/18 11:45 12/04/18 06:43 Chloride IVPB 0 mg/hr TITR [facility] 0 mls/hr Titration Protocol 7 MG/HR Methylprednisolone Sodium 260 mls @ 130 mls/hr 12/02/18 18:15 12/03/18 09:12 Succinate 1,250 mg/ Dextrose IVPB 130 mls/hr DAILY [facility] Administration Insulin Aspart 1 vial 12/03/18 10:32 12/04/18 06:23 Novolog Vial Sliding Scale - SQ 8 units ACHS [facility] Administration Protocol Insulin Detemir 10 units 11/24/18 22:00 12/03/18 22:37 Levemir Vial SQ 10 units HS [facility] Administration Metoprolol Tartrate 5 mg 11/28/18 21:33 12/02/18 06:06 Lopressor Injection - IVPUSH 5 mg Q4H PRN Administration HR >120 Multivitamins/Minerals/Vitamin C 1 tab 11/24/18 10:00 12/03/18 09:12 Tab-A-Vit - PO Not Given DAILY [facility] Pantoprazole Sodium 40 mg 12/02/18 22:00 12/03/18 22:35 Protonix Iv IVPUSH 40 mg BID [facility] Administration Thiamine HCl 200 mg 11/26/18 11:30 12/03/18 09:13 Vitamin B1 Injection - IVPB 200 mg DAILY [facility] Administration ASSESSMENT/PLAN: The pt is a 53F with a PMH of COPD, acute/chronic EtOH abuse (several glasses of rum daily), long-term tobacco abuse, TRINH, morbid obesity, DM, HTN, hyperlipidemia, cellulites, metabolic syndrome who was transferred to ICU due to worsening respiratory failure 11/27 - Patient w/ worsening mentation and respiratory status throughout the morning. Worsening repeat ABG. Decision was made to intubate for hypercapnic/ hypoxic respiratory failure 11/28 - Vented, ABG improving 12/01 - Extubated to HFNC. OGT D/C'ed. 12/02 - +PR3, plan for kidney bx in 7d (ASA held) 1/2 - Methylprednisolone 12/04 - Trial high flow, swallow eval Neuro ETOH abuse, dependence -Patient no longer likely to withdraw given length of time in hospital Tobacco abuse -Educated -Nicotine patch CV Cardiology Dr Ronny Santana-thomas -Apixaban -Lopressor IV push PRN -Diltiazem gtt weaned overnight -Digoxin HTN -Antihypertensives held 2/2 relative hypotension Hypervolemia w/ pulmonary congestion -Lasix 40mg IV PRN Pulm Acute hypercapnic respiratory failure due to pulmonary edema can Not R/O CHF vs copd exacerbation ILD new diagnosed on CT -Continue symbicort -Continue broncodilators -s/p intubation 11/27/2018 for acute decompensation --Extubated 12/01/2018 -On BiPap at night, trial venti-mask during day -12/04 trial high flow given improvement in ABG and mentation GI Nutrition -Speech and swallow eval today (12/04) GI Ppx -Protonix PITO -IVF held 2/2 respiratory edema/volume overload -Avoid nephrotoxic agents -Nephrology consulted Hyperkalemia -Resolved Heme DVT Ppx: scds, Apixaban ID BLE Cellulitis -Not likely infectious in etiology -s/p Abx course -no further abx at this time Endo DM -BGM ACHS -ISS increased 1/2 2/2 poor glycemic control Morbid obesity -Educated about low calories diet , losing weight , daily exercise LTD Bills- 11/25/2018 PIV Dispo: Patient continues to require ICU level of care. Visit type - Emergency Visit Emergency Visit: Yes ED Registration Date: 11/23/18 Care time: The patient presented to the Emergency Department on the above date and was hospitalized for further evaluation of their emergent condition. - New Patient This patient is new to me today: No - Critical Care Critical Care patient: Yes Total Critical Care Time (in minutes): 35 Critical Care Statement: The care of this patient involved high complexity decision making to prevent further life threatening deterioration of the patient 's condition and/or to evaluate & treat vital organ system(s) failure or risk of failure.
[2018-12-04] MEDS ORDERED: FUROSEMIDE 40 MG/4 ML INJECTABLE VIAL IVPUSH ONE (07:17)
[2018-12-04 07:23] LABS: ARTERIAL BLD GAS O2 SATURATION 90.5 % (90-98.9); ARTERIAL BLOOD GAS BASE EXCESS 10.9 meq/l (-2-2); ARTERIAL BLOOD GAS PO2 64.8 mmHg (80-100); ARTERIAL BLOOD GAS pH 7.38 (7.35-7.45)
[2018-12-04 07:23] LABS: BLOOD UREA NITROGEN 124 mg/dL (7-18)
[2018-12-04] MEDS: ALBUTEROL SO4 2.5/IPRATROPIUM 0.5 INH SOL 3 ML VIAL.NEB. NEB SCH ×3 (07:26→16:02)
[2018-12-04 07:34] LABS: ALLENS TEST POSITIVE
[2018-12-04 07:38] LABS: ARTERIAL BLOOD GAS PCO2 68.7 mmHg (35-45)
[2018-12-04] MEDS: PANTOPRAZOLE SODIUM 40 MG VIAL IVPUSH SCH ×2 (10:11→22:08)
[2018-12-04] MEDS: DIGOXIN 0.5 MG/2 ML AMPUL IVPUSH SCH (10:16)
[2018-12-04] MEDS: WATER IVPB SCH (10:19)
[2018-12-04] MEDS: DEXTROSE 5% IVPB SCH (10:19)
[2018-12-04] MEDS: METHYLPREDNISOLONE NA SUCC IVPB SCH (10:19)
[2018-12-04] MEDS: THIAMINE HCL 200 MG/2 ML VIAL IVPB SCH (10:20)
[2018-12-04 11:47] LABS: ANISOCYTOSIS 1+; MACROCYTOSIS 1+; OVALOCYTE 1+; PLATELET ESTIMATE DECREASED
--- NOTE | 2018-12-04 12:46 | PN ---
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 (short form) - Note 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: on high flow O2 aunt at bedside pt shaking her "no" when asked if she wants to re-intubated if necessary responding to commands she can not sit up, or move much Vital Signs - 24 hr 12/03/18 12/03/18 12/03/18 14:00 18:00 19:23 Temperature 98.4 F Pulse Rate 100 H 74 Respiratory 18 17 Rate Blood Pressure 134/74 135/64 O2 Sat by Pulse 91 L Oximetry (%) 12/03/18 12/03/18 12/03/18 21:30 22:00 23:00 Temperature Pulse Rate 80 71 Respiratory 28 H Rate Blood Pressure 147/90 O2 Sat by Pulse 93 L Oximetry (%) 12/04/18 12/04/18 12/04/18 00:02 02:00 02:49 Temperature Pulse Rate 89 Respiratory 21 H Rate Blood Pressure 144/76 O2 Sat by Pulse 93 L 91 L Oximetry (%) 12/04/18 12/04/18 12/04/18 06:00 06:43 07:13 Temperature Pulse Rate 68 68 Respiratory 18 Rate Blood Pressure 143/73 143/78 O2 Sat by Pulse 92 L Oximetry (%) 12/04/18 12/04/18 12/04/18 08:00 09:00 10:00 Temperature 98.4 F Pulse Rate 69 68 Respiratory 18 18 Rate Blood Pressure 129/66 146/77 O2 Sat by Pulse 92 L 91 L Oximetry (%) 12/04/18 12/04/18 12/04/18 10:16 10:25 10:30 Temperature Pulse Rate 74 61 Respiratory Rate Blood Pressure O2 Sat by Pulse 94 L 95 Oximetry (%) 12/04/18 12:00 Temperature Pulse Rate 62 Respiratory 18 Rate Blood Pressure 128/54 L O2 Sat by Pulse Oximetry (%) Current Medications Generic Name Dose Route Start Last Admin Trade Name Freq PRN Reason Stop Dose Admin Albuterol/Ipratropium 1 amp 11/25/18 20:10 12/04/18 07:26 Duoneb - NEB 1 amp RQID [facility] Administration Apixaban 5 mg 11/24/18 10:00 12/03/18 22:39 Eliquis - PO 5 mg BID [facility] Administration Budesonide/Formoterol Fumarate 1 puff 11/24/18 10:00 12/03/18 17:36 Symbicort 160/4.5mcg - IH 1 puff DAILY [facility] Administration Digoxin 0.125 mg 12/02/18 12:15 12/04/18 10:16 Lanoxin Injection - IVPUSH 0.125 mg DAILY [facility] Administration Gabapentin 100 mg 11/24/18 10:00 12/03/18 09:12 Neurontin - PO Not Given DAILY [facility] Diltiazem HCl 125 mg/ Sodium 125 mls @ 7 mls/hr 12/01/18 11:45 12/04/18 06:43 Chloride IVPB 0 mg/hr TITR [facility] 0 mls/hr Titration Protocol 7 MG/HR Methylprednisolone Sodium 260 mls @ 130 mls/hr 12/02/18 18:15 12/04/18 10:19 Succinate 1,250 mg/ Dextrose IVPB 130 mls/hr DAILY [facility] Administration Insulin Aspart 1 vial 12/03/18 10:32 12/04/18 11:34 Novolog Vial Sliding Scale - SQ 6 units ACHS [facility] Administration Protocol Insulin Detemir 10 units 11/24/18 22:00 12/03/18 22:37 Levemir Vial SQ 10 units HS [facility] Administration Metoprolol Tartrate 5 mg 11/28/18 21:33 12/02/18 06:06 Lopressor Injection - IVPUSH 5 mg Q4H PRN Administration HR >120 Multivitamins/Minerals/Vitamin C 1 tab 11/24/18 10:00 12/03/18 09:12 Tab-A-Vit - PO Not Given DAILY [facility] Pantoprazole Sodium 40 mg 12/02/18 22:00 12/04/18 10:11 Protonix Iv IVPUSH 40 mg BID [facility] Administration Thiamine HCl 200 mg 11/26/18 11:30 12/04/18 10:20 Vitamin B1 Injection - IVPB 200 mg DAILY [facility] Administration Laboratory Results - last 24 hr 12/03/18 12/03/18 12/03/18 12:10 15:00 17:21 WBC RBC Hgb Hct MCV MCH MCHC RDW Plt Count MPV Absolute Neuts (auto) Neutrophils % Neutrophils % (Manual) Band Neutrophils % Lymphocytes % Lymphocytes % (Manual) Monocytes % Monocytes % (Manual) Eosinophils % Eosinophils % (Manual) Basophils % Basophils % (Manual) Myelocytes % (Man) Promyelocytes % (Man) Blast Cells % (Manual) Nucleated RBC % Metamyelocytes Hypochromia Platelet Estimate Polychromasia Poikilocytosis Anisocytosis Microcytosis Macrocytosis Ovalocytes Puncture Site ABG pH ABG pCO2 at Pt Temp ABG pO2 at Pt Temp ABG HCO3 ABG O2 Sat (Measured) ABG O2 Content ABG Base Excess Mendoza Test O2 Delivery Device Oxygen Flow Rate Sodium Potassium Chloride Carbon Dioxide Anion Gap BUN Creatinine Creat Clearance w eGFR POC Glucometer 302.63074 Random Glucose Calcium Phosphorus Magnesium Total Bilirubin AST ALT Alkaline Phosphatase Troponin I 0.07 H Total Protein Albumin Urine Color Ltyellow Urine Appearance Slcloudy Urine pH 5.0 Ur Specific [place] 1.012 Urine Protein Negative Urine Glucose (UA) 3+ H Urine Ketones Negative Urine Blood Negative Urine Nitrite Negative Urine Bilirubin Negative Urine Urobilinogen Negative Ur Leukocyte Esterase Negative 12/03/18 12/04/18 12/04/18 22:25 05:15 05:15 WBC 11.7 H RBC 4.63 Hgb 14.8 Hct 48.1 H MCV 104.0 H MCH 32.0 MCHC 30.8 L RDW 15.5 Plt Count 127 L MPV 10.0 Absolute Neuts (auto) 11.1 H Neutrophils % 94.7 H Neutrophils % (Manual) 98.0 H Band Neutrophils % 0.0 Lymphocytes % 1.7 L Lymphocytes % (Manual) 1.0 L Monocytes % 3.1 L Monocytes % (Manual) 0 L D Eosinophils % 0.1 D Eosinophils % (Manual) 0.0 Basophils % 0.4 D Basophils % (Manual) 0.0 Myelocytes % (Man) 0 Promyelocytes % (Man) 0 Blast Cells % (Manual) 0 Nucleated RBC % 0 Metamyelocytes 0 Hypochromia 1+ Platelet Estimate Decreased Polychromasia 0 Poikilocytosis 1+ Anisocytosis 1+ Microcytosis 0 Macrocytosis 1+ Ovalocytes 1+ Puncture Site ABG pH ABG pCO2 at Pt Temp ABG pO2 at Pt Temp ABG HCO3 ABG O2 Sat (Measured) ABG O2 Content ABG Base Excess Mendoza Test O2 Delivery Device Oxygen Flow Rate Sodium 156 H Potassium 4.5 Chloride 113 H Carbon Dioxide 42 H Anion Gap 1 L BUN 124 H* Creatinine 2.0 H Creat Clearance w eGFR 25.96 POC Glucometer 283.29527 Random Glucose 273 H Calcium 9.2 Phosphorus 4.1 Magnesium 3.5 H Total Bilirubin 0.9 AST 13 L ALT 22 Alkaline Phosphatase 88 Troponin I Total Protein 6.4 Albumin 3.0 L Urine Color Urine Appearance Urine pH Ur Specific [place] Urine Protein Urine Glucose (UA) Urine Ketones Urine Blood Urine Nitrite Urine Bilirubin Urine Urobilinogen Ur Leukocyte Esterase 12/04/18 12/04/18 05:43 06:40 WBC RBC Hgb Hct MCV MCH MCHC RDW Plt Count MPV Absolute Neuts (auto) Neutrophils % Neutrophils % (Manual) Band Neutrophils % Lymphocytes % Lymphocytes % (Manual) Monocytes % Monocytes % (Manual) Eosinophils % Eosinophils % (Manual) Basophils % Basophils % (Manual) Myelocytes % (Man) Promyelocytes % (Man) Blast Cells % (Manual) Nucleated RBC % Metamyelocytes Hypochromia Platelet Estimate Polychromasia Poikilocytosis Anisocytosis Microcytosis Macrocytosis Ovalocytes Puncture Site Right radial ABG pH 7.38 ABG pCO2 at Pt Temp 68.7 H* ABG pO2 at Pt Temp 64.8 L ABG HCO3 39.8 H ABG O2 Sat (Measured) 90.5 ABG O2 Content 22.4 H ABG Base Excess 10.9 H Mendoza Test Positive O2 Delivery Device Venti mask 40% Oxygen Flow Rate 40% Sodium Potassium Chloride Carbon Dioxide Anion Gap BUN Creatinine Creat Clearance w eGFR POC Glucometer 271.63252 Random Glucose Calcium Phosphorus Magnesium Total Bilirubin AST ALT Alkaline Phosphatase Troponin I Total Protein Albumin Urine Color Urine Appearance Urine pH Ur Specific [place] Urine Protein Urine Glucose (UA) Urine Ketones Urine Blood Urine Nitrite Urine Bilirubin Urine Urobilinogen Ur Leukocyte Esterase sedated S1 S2 RRR Lungs decreased breath sounds Abd- soft, NT,obese, ND edema + PLAN In ICU - monitor O2 sat for renal biopsy next week as she was on ASA- but high risk of bleeding- aunt aware need tissue biopsy as per Rheumatology note , spoke with Renal- repeat ANCA levels s/p pulse steroids palliative care eval spoke with aunt- Shital Pitt - aware of critical condition Problem List - Problems (1) Acute on chronic respiratory failure with hypoxia and hypercapnia Code(s): J96.21 - ACUTE AND CHRONIC RESPIRATORY FAILURE WITH HYPOXIA; J96.22 - ACUTE AND CHRONIC RESPIRATORY FAILURE WITH HYPERCAPNIA (2) Acute renal failure Code(s): N17.9 - ACUTE KIDNEY FAILURE, UNSPECIFIED (3) Acute respiratory failure with hypoxia and hypercapnia Code(s): J96.01 - ACUTE RESPIRATORY FAILURE WITH HYPOXIA; J96.02 - ACUTE RESPIRATORY FAILURE WITH HYPERCAPNIA (4) Alcoholism Code(s): F10.20 - ALCOHOL DEPENDENCE, UNCOMPLICATED (5) Atrial flutter Code(s): I48.92 - UNSPECIFIED ATRIAL FLUTTER (6) Bilateral lower extremity edema Code(s): R60.0 - LOCALIZED EDEMA
--- NOTE | 2018-12-04 13:17 | PN ---
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, REFERENCE DATA EXPERT - Note 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: Speech follow-up. Pt.'s Aunt Shital at bedside. Pt. opens her eyes intermittently, attempts to shake her head in reponse to yes/no, though inconsistently. Open-mouthed posture with labored breathing. PO trials not recommended at this time. Speech/Swallow will continue to follow.
[2018-12-04] MEDS: MULTIVITAMINS (DAILY MVI) TABLET (FP) PO SCH (13:27)
[2018-12-04] MEDS: BUDESONIDE/FORMETEROL FUMARATE 160/4.5 mcg INHALER IH SCH (13:27)
[2018-12-04] MEDS: APIXABAN 5 MG TABLET PO SCH ×2 (13:27→22:08)
[2018-12-04] MEDS: GABAPENTIN 100 MG CAPSULE (FP) PO SCH (13:27)
[2018-12-04] MEDS: DILTIAZEM INJECTION 125 MG in SODIUM CHLORIDE 100 ML IVPB SCH (13:30)
[2018-12-04] MEDS ORDERED: morphine SULFATE 4 MG/ML VIAL IVPUSH ONE (13:33)
--- NOTE | 2018-12-04 13:33 | PN ---
Teaching Attending Note Name of Resident: Heriberto Urena ATTENDING PHYSICIAN STATEMENT I saw and evaluated the patient. I reviewed the resident's note and discussed the case with the resident. I agree with the resident's findings and plan as documented. SUBJECTIVE: Patient seen and examined in the ICU. Slightly more awake on NIPPV support. Following commands ABG is improving Rheumatology evaluation noted. CXR: No gross change in bibasilar airspace disease OBJECTIVE: Intake & Output 12/01/18 12/02/18 12/03/18 12/04/18 23:59 23:59 23:59 23:59 Intake Total 1131.9 399.3 740 120 Output Total 2500 3900 3000 1200 Balance -1368.1 -3500.7 -2260 -1080 Weight 276 lb 7.355 oz 276 lb 3.827 oz 264 lb 6 oz 255 lb 15.307 oz Last Vital Signs Temp Pulse Resp BP Pulse Ox 98.4 F 62 18 128/54 L 95 12/04/18 10:00 12/04/18 12:00 12/04/18 12:00 12/04/18 12:00 12/04/18 10:30 Active Medications Albuterol/Ipratropium (Duoneb -) 1 amp NEB RQID [facility] Last Admin: 12/04/18 07:26 Dose: 1 amp Apixaban (Eliquis -) 5 mg PO BID [facility] Last Admin: 12/03/18 22:39 Dose: 5 mg Budesonide/Formoterol Fumarate (Symbicort 160/4.5mcg -) 1 puff IH DAILY [facility] Last Admin: 12/03/18 17:36 Dose: 1 puff Digoxin (Lanoxin Injection -) 0.125 mg IVPUSH DAILY [facility] Last Admin: 12/04/18 10:16 Dose: 0.125 mg Gabapentin (Neurontin -) 100 mg PO DAILY [facility] Last Admin: 12/03/18 09:12 Dose: Not Given Diltiazem HCl 125 mg/ Sodium (Chloride) 125 mls @ 7 mls/hr IVPB TITR [facility]; Protocol Last Titration: 12/04/18 06:43 Dose: 0 mg/hr, 0 mls/hr Methylprednisolone Sodium (Succinate 1,250 mg/ Dextrose) 260 mls @ 130 mls/hr IVPB DAILY [facility] Last Admin: 12/04/18 10:19 Dose: 130 mls/hr Insulin Aspart (Novolog Vial Sliding Scale -) 1 vial SQ ACHS [facility]; Protocol Last Admin: 12/04/18 11:34 Dose: 6 units Insulin Detemir (Levemir Vial) 10 units SQ HS [facility] Last Admin: 12/03/18 22:37 Dose: 10 units Metoprolol Tartrate (Lopressor Injection -) 5 mg IVPUSH Q4H PRN PRN Reason: HR >120 Last Admin: 12/02/18 06:06 Dose: 5 mg Multivitamins/Minerals/Vitamin C (Tab-A-Vit -) 1 tab PO DAILY [facility] Last Admin: 12/03/18 09:12 Dose: Not Given Pantoprazole Sodium (Protonix Iv) 40 mg IVPUSH BID [facility] Last Admin: 12/04/18 10:11 Dose: 40 mg Thiamine HCl (Vitamin B1 Injection -) 200 mg IVPB DAILY [facility] Last Admin: 12/04/18 10:20 Dose: 200 mg Gen: More awake on NIPPV Heart: RRR Lung: bibasilar rhonchi, distant breath sounds Abd: soft, nontender Ext: + edema DIGITIZER: Drowsy, non-focal Laboratory Results - last 24 hr 12/03/18 12/03/18 12/03/18 15:00 17:21 22:25 WBC RBC Hgb Hct MCV MCH MCHC RDW Plt Count MPV Absolute Neuts (auto) Neutrophils % Neutrophils % (Manual) Band Neutrophils % Lymphocytes % Lymphocytes % (Manual) Monocytes % Monocytes % (Manual) Eosinophils % Eosinophils % (Manual) Basophils % Basophils % (Manual) Myelocytes % (Man) Promyelocytes % (Man) Blast Cells % (Manual) Nucleated RBC % Metamyelocytes Hypochromia Platelet Estimate Polychromasia Poikilocytosis Anisocytosis Microcytosis Macrocytosis Ovalocytes Puncture Site ABG pH ABG pCO2 at Pt Temp ABG pO2 at Pt Temp ABG HCO3 ABG O2 Sat (Measured) ABG O2 Content ABG Base Excess Mendoza Test O2 Delivery Device Oxygen Flow Rate Sodium Potassium Chloride Carbon Dioxide Anion Gap BUN Creatinine Creat Clearance w eGFR POC Glucometer 302.59309 283.23143 Random Glucose Calcium Phosphorus Magnesium Total Bilirubin AST ALT Alkaline Phosphatase Total Protein Albumin Urine Color Ltyellow Urine Appearance Slcloudy Urine pH 5.0 Ur Specific [place] 1.012 Urine Protein Negative Urine Glucose (UA) 3+ H Urine Ketones Negative Urine Blood Negative Urine Nitrite Negative Urine Bilirubin Negative Urine Urobilinogen Negative Ur Leukocyte Esterase Negative 12/04/18 12/04/18 12/04/18 05:15 05:15 05:43 WBC 11.7 H RBC 4.63 Hgb 14.8 Hct 48.1 H MCV 104.0 H MCH 32.0 MCHC 30.8 L RDW 15.5 Plt Count 127 L MPV 10.0 Absolute Neuts (auto) 11.1 H Neutrophils % 94.7 H Neutrophils % (Manual) 98.0 H Band Neutrophils % 0.0 Lymphocytes % 1.7 L Lymphocytes % (Manual) 1.0 L Monocytes % 3.1 L Monocytes % (Manual) 0 L D Eosinophils % 0.1 D Eosinophils % (Manual) 0.0 Basophils % 0.4 D Basophils % (Manual) 0.0 Myelocytes % (Man) 0 Promyelocytes % (Man) 0 Blast Cells % (Manual) 0 Nucleated RBC % 0 Metamyelocytes 0 Hypochromia 1+ Platelet Estimate Decreased Polychromasia 0 Poikilocytosis 1+ Anisocytosis 1+ Microcytosis 0 Macrocytosis 1+ Ovalocytes 1+ Puncture Site ABG pH ABG pCO2 at Pt Temp ABG pO2 at Pt Temp ABG HCO3 ABG O2 Sat (Measured) ABG O2 Content ABG Base Excess Mendoza Test O2 Delivery Device Oxygen Flow Rate Sodium 156 H Potassium 4.5 Chloride 113 H Carbon Dioxide 42 H Anion Gap 1 L BUN 124 H* Creatinine 2.0 H Creat Clearance w eGFR 25.96 POC Glucometer 271.32040 Random Glucose 273 H Calcium 9.2 Phosphorus 4.1 Magnesium 3.5 H Total Bilirubin 0.9 AST 13 L ALT 22 Alkaline Phosphatase 88 Total Protein 6.4 Albumin 3.0 L Urine Color Urine Appearance Urine pH Ur Specific [place] Urine Protein Urine Glucose (UA) Urine Ketones Urine Blood Urine Nitrite Urine Bilirubin Urine Urobilinogen Ur Leukocyte Esterase 12/04/18 06:40 WBC RBC Hgb Hct MCV MCH MCHC RDW Plt Count MPV Absolute Neuts (auto) Neutrophils % Neutrophils % (Manual) Band Neutrophils % Lymphocytes % Lymphocytes % (Manual) Monocytes % Monocytes % (Manual) Eosinophils % Eosinophils % (Manual) Basophils % Basophils % (Manual) Myelocytes % (Man) Promyelocytes % (Man) Blast Cells % (Manual) Nucleated RBC % Metamyelocytes Hypochromia Platelet Estimate Polychromasia Poikilocytosis Anisocytosis Microcytosis Macrocytosis Ovalocytes Puncture Site Right radial ABG pH 7.38 ABG pCO2 at Pt Temp 68.7 H* ABG pO2 at Pt Temp 64.8 L ABG HCO3 39.8 H ABG O2 Sat (Measured) 90.5 ABG O2 Content 22.4 H ABG Base Excess 10.9 H Mendoza Test Positive O2 Delivery Device Venti mask 40% Oxygen Flow Rate 40% Sodium Potassium Chloride Carbon Dioxide Anion Gap BUN Creatinine Creat Clearance w eGFR POC Glucometer Random Glucose Calcium Phosphorus Magnesium Total Bilirubin AST ALT Alkaline Phosphatase Total Protein Albumin Urine Color Urine Appearance Urine pH Ur Specific [place] Urine Protein Urine Glucose (UA) Urine Ketones Urine Blood Urine Nitrite Urine Bilirubin Urine Urobilinogen Ur Leukocyte Esterase ASSESSMENT AND PLAN: Acute on Chronic Hypoxic and Hypercapneic Respiratory Failure Acute COPD Exacerbation Morbid Obesity Obstructive Sleep Apnea/Obesity Hypoventilation Syndrome Suspect Right Heart Failure Volume Overload Mediastinal Lymphadenopathy Atrial Flutter with RVR Cellulitis Acute Kidney Injury Alcohol Abuse - Hold cyclophosphamide / high dose steroids - Inhaled bronchodilators - Lasix daily - Off ABX - Monitor urine output, creatinine - Rate control - Continue anticoagulation - Outpatient f/u of mediastinal lymphadenopathy - NIPPV support - Trial of HF OT and PO intake if stable - ICU monitoring due to tenuous respiratory status Dr Dixon Critical care time spent in reviewing chart, evaluating patient and formulating plan 35 min
[2018-12-04] MEDS ORDERED: morphine SULFATE 4 MG/ML VIAL ONE (13:44)
--- NOTE | 2018-12-04 14:30 | PN ---
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, Physician History of Present Illness: Pt seen and examined at bedside. She remains in the ICU. She is lethargic. Aunt is at bedside. - Current Medication List Current Medications: Active Medications Albuterol/Ipratropium (Duoneb -) 1 amp NEB RQID [facility] Last Admin: 12/04/18 07:26 Dose: 1 amp Apixaban (Eliquis -) 5 mg PO BID [facility] Last Admin: 12/04/18 13:27 Dose: Not Given Budesonide/Formoterol Fumarate (Symbicort 160/4.5mcg -) 1 puff IH DAILY [facility] Last Admin: 12/04/18 13:27 Dose: Not Given Digoxin (Lanoxin Injection -) 0.125 mg IVPUSH DAILY [facility] Last Admin: 12/04/18 10:16 Dose: 0.125 mg Gabapentin (Neurontin -) 100 mg PO DAILY [facility] Last Admin: 12/04/18 13:27 Dose: Not Given Diltiazem HCl 125 mg/ Sodium (Chloride) 125 mls @ 7 mls/hr IVPB TITR [facility]; Protocol Last Admin: 12/04/18 13:30 Dose: 5 mg/hr, 5 mls/hr Insulin Aspart (Novolog Vial Sliding Scale -) 1 vial SQ ACHS [facility]; Protocol Last Admin: 12/04/18 11:34 Dose: 6 units Insulin Detemir (Levemir Vial) 10 units SQ HS [facility] Last Admin: 12/03/18 22:37 Dose: 10 units Metoprolol Tartrate (Lopressor Injection -) 5 mg IVPUSH Q4H PRN PRN Reason: HR >120 Last Admin: 12/02/18 06:06 Dose: 5 mg Multivitamins/Minerals/Vitamin C (Tab-A-Vit -) 1 tab PO DAILY [facility] Last Admin: 12/04/18 13:27 Dose: Not Given Pantoprazole Sodium (Protonix Iv) 40 mg IVPUSH BID [facility] Last Admin: 12/04/18 10:11 Dose: 40 mg Thiamine HCl (Vitamin B1 Injection -) 200 mg IVPB DAILY [facility] Last Admin: 12/04/18 10:20 Dose: 200 mg - Objective Vital Signs: Vital Signs Temperature 98.4 F 12/04/18 14:00 Pulse Rate 77 12/04/18 14:24 Respiratory Rate 18 12/04/18 14:00 Blood Pressure 146/70 12/04/18 14:00 O2 Sat by Pulse Oximetry (%) 95 12/04/18 14:24 Constitutional: Yes: Calm Eyes: Yes: Conjunctiva Clear Cardiovascular: Yes: S1, S2 Respiratory: Yes: On Nasal O2, Rhonchi Gastrointestinal: Yes: Soft, Abdomen, Obese Genitourinary: Yes: Bills Present Musculoskeletal: Yes: Muscle Weakness Edema: Yes Edema: LUE: Trace, RUE: Trace, LLE: 1+, RLE: 1+ Integumentary: Yes: Venous Stasis Changes Neurological: Yes: Lethargy Labs: CBC, BMP 12/04/18 05:15 12/04/18 05:15 INR, PTT INR 1.13 (0.83-1.09) H 11/23/18 16:40 - ....Imaging Chest X-ray: Report Reviewed Problem List - Problems (1) Hyperkalemia Code(s): E87.5 - HYPERKALEMIA (2) Acute on chronic respiratory failure with hypoxia and hypercapnia Code(s): J96.21 - ACUTE AND CHRONIC RESPIRATORY FAILURE WITH HYPOXIA; J96.22 - ACUTE AND CHRONIC RESPIRATORY FAILURE WITH HYPERCAPNIA (3) Acute renal failure Code(s): N17.9 - ACUTE KIDNEY FAILURE, UNSPECIFIED (4) Alcoholism Code(s): F10.20 - ALCOHOL DEPENDENCE, UNCOMPLICATED (5) Atrial flutter Code(s): I48.92 - UNSPECIFIED ATRIAL FLUTTER (6) Bilateral lower extremity edema Code(s): R60.0 - LOCALIZED EDEMA (7) COPD exacerbation Code(s): J44.1 - CHRONIC OBSTRUCTIVE PULMONARY DISEASE W (ACUTE) EXACERBATION Assessment/Plan Current Medications Generic Name Dose Route Start Last Admin Trade Name Freq PRN Reason Stop Dose Admin Albuterol/Ipratropium 1 amp 11/25/18 20:10 12/04/18 11:25 Duoneb - NEB 1 amp RQID [facility] Administration Apixaban 5 mg 11/24/18 10:00 12/04/18 13:27 Eliquis - PO Not Given BID [facility] Budesonide/Formoterol Fumarate 1 puff 11/24/18 10:00 12/04/18 13:27 Symbicort 160/4.5mcg - IH Not Given DAILY [facility] Digoxin 0.125 mg 12/02/18 12:15 12/04/18 10:16 Lanoxin Injection - IVPUSH 0.125 mg DAILY [facility] Administration Gabapentin 100 mg 11/24/18 10:00 12/04/18 13:27 Neurontin - PO Not Given DAILY [facility] Diltiazem HCl 125 mg/ Sodium 125 mls @ 7 mls/hr 12/01/18 11:45 12/04/18 13:30 Chloride IVPB 5 mg/hr TITR [facility] 5 mls/hr Administration Protocol 7 MG/HR Insulin Aspart 1 vial 12/03/18 10:32 12/04/18 11:34 Novolog Vial Sliding Scale - SQ 6 units ACHS [facility] Administration Protocol Insulin Detemir 10 units 11/24/18 22:00 12/03/18 22:37 Levemir Vial SQ 10 units HS [facility] Administration Metoprolol Tartrate 5 mg 11/28/18 21:33 12/02/18 06:06 Lopressor Injection - IVPUSH 5 mg Q4H PRN Administration HR >120 Multivitamins/Minerals/Vitamin C 1 tab 11/24/18 10:00 12/04/18 13:27 Tab-A-Vit - PO Not Given DAILY [facility] Pantoprazole Sodium 40 mg 12/02/18 22:00 12/04/18 10:11 Protonix Iv IVPUSH 40 mg BID [facility] Administration Thiamine HCl 200 mg 11/26/18 11:30 12/04/18 10:20 Vitamin B1 Injection - IVPB 200 mg DAILY [facility] Administration Laboratory Tests 12/03/18 21:20 c-ANCA Pending Proteinase 3 (PR3) Pending p-ANCA Pending Atypical p-ANCA Pending Myeloperoxidase Ab Pending Impression 1. PITO 2. hyperkalemia 3. a-flutter 4. resp failure requiring bipap 5. DM 6. HTN 7. active smoker 8. etoh abuse 9. obesity 10. interstitial lung disease on CT scan 11. resp acidosis 12. COPD 13. positive pr3 14. hypernatremia Plan - renal function improving - potassium improved - follow up repeat anca - asa on hold for tissue biopsy - family are discussing GOC - will need free water as sodium is elevated - rheum follow up - pt has poor respiratory status - pt has a positive pr3 and a positive p-anca, although the c-anca is negative, follow repeat - discussed with ICU - cont lasix prn - overall prognosis guarded - will follow closely
[2018-12-04] MEDS ORDERED: methylPREDNISolone NA SUCC 40 MG/1 ML VIAL IVPUSH SCH (14:45)
[2018-12-04 15:01] LABS: ARTERIAL BLD GAS O2 SATURATION 87.3 % (90-98.9); ARTERIAL BLOOD GAS BASE EXCESS 12.4 meq/l (-2-2); ARTERIAL BLOOD GAS pH 7.37 (7.35-7.45)
[2018-12-04 15:12] LABS: ALLENS TEST POSITIVE
[2018-12-04 15:17] LABS: ARTERIAL BLOOD GAS PCO2 73.2 mmHg (35-45)
[2018-12-04] MEDS: INSULIN (LEVEMIR) 100 UNITS/ML UNITS SQ SCH (22:16)
[2018-12-05] MEDS: INSULIN SLIDING SCALE (NOVOLOG) 1 VIAL SQ SCH ×4 (06:05→22:21)
[2018-12-05 06:14] LABS: BASO % 0.1 % (0-2.0); HEMATOCRIT 48.2 % (32.4-45.2); HEMOGLOBIN 14.6 GM/dL (10.7-15.3); LYMPH % 1.9 % (8-40); MCH 31.8 pg (25.7-33.7); MCHC 30.4 g/dl (32.0-36.0); MEAN CELL VOLUME 104.8 fl (80-96); MEAN PLT VOLUME 10.2 fl (7.5-11.1); MONO % 3.4 % (3.8-10.2); NEUT % 94.6 % (42.8-82.8); PLATELET COUNT 114 K/MM3 (134-434); RBC 4.59 M/mm3 (3.60-5.2); RDW 15.6 % (11.6-15.6)
[2018-12-05] MEDS ORDERED: LYTES/YERBA SANTA 240 ML BOTTLE MM PRN (06:36)
[2018-12-05 06:49] LABS: ALBUMIN 3.3 g/dl (3.4-5.0); ALK PHOS 88 U/L (45-117); ANION GAP 3 MMOL/L (8-16); CALCIUM 9.6 mg/dL (8.5-10.1); CHLORIDE 120 mmol/L (98-107); CO2 42 mmol/L (21-32); GLUCOSE,RANDOM 193 mg/dL (74-106); MAGNESIUM 3.2 mg/dL (1.8-2.4); PHOSPHOROUS 3.9 mg/dL (2.5-4.9); POTASSIUM 4.7 mmol/L (3.5-5.1); SGOT/AST 14 U/L (15-37); SGPT/ALT 23 U/L (13-61); TOT PROT 6.7 g/dl (6.4-8.2)
[2018-12-05 06:52] LABS: BLOOD UREA NITROGEN 121 mg/dL (7-18); SODIUM 165 mmol/L (136-145)
[2018-12-05] MEDS ORDERED: MORPHINE SULFATE 2 MG/ML VIAL IVPUSH ONE (06:59)
[2018-12-05] MEDS ORDERED: morphine SULFATE 4 MG/ML VIAL ONE (07:02)
[2018-12-05] MEDS ORDERED: DEXTROSE 5%-WATER - 1,000 ML IV ONE (07:10)
[2018-12-05 07:17] LABS: ARTERIAL BLD GAS O2 SATURATION 93.2 % (90-98.9); ARTERIAL BLOOD GAS BASE EXCESS 12.1 meq/l (-2-2); ARTERIAL BLOOD GAS PO2 71.6 mmHg (80-100); ARTERIAL BLOOD GAS pH 7.38 (7.35-7.45)
--- NOTE | 2018-12-05 07:17 | PN ---
Physical Exam: SUBJECTIVE: Patient seen and examined. Patient able to vocalize but not form words, not oriented OBJECTIVE: Vital Signs Period Temp Pulse Resp BP Sys/Gregorio Pulse Ox Last 24 Hr 98.3 F-99.2 F 61-85 17-24 113-162/54-88 90-96 GENERAL: Awake, alert, unable to assess orientation HEAD: NC/AT EYES: PERRL, EOMI ENT: Moist mucous membranes. maxillary lip wound (hemostatic) NECK: supple LUNGS: b/l coarse breath sounds throughout with good air entry. On BiPap HEART: A-flutter, normal rate, no murmur appreciated ABDOMEN: Soft, protuberant, edematous, mild distended, normoactive bowel sounds BUE: B/l hand swelling, not likely cellulitis, sensation and ROM intact LOWER EXTREMITIES: 2+ pulses, warm, well-perfused NEUROLOGICAL: no focal deficit. follows simple commands. Vocalizes, repeating ' mom' Active Medications Generic Name Dose Route Start Last Admin Trade Name Freq PRN Reason Stop Dose Admin Apixaban 5 mg 11/24/18 10:00 12/04/18 22:08 Eliquis - PO Not Given BID BR[facility]GETTE Budesonide/Formoterol Fumarate 1 puff 11/24/18 10:00 12/04/18 13:27 Symbicort 160/4.5mcg - IH Not Given DAILY BR[facility] Digoxin 0.125 mg 12/02/18 12:15 12/04/18 10:16 Lanoxin Injection - IVPUSH 0.125 mg DAILY [facility] Administration Gabapentin 100 mg 11/24/18 10:00 12/04/18 13:27 Neurontin - PO Not Given DAILY [facility] Heparin Sodium (Porcine) 5,000 unit 12/05/18 07:00 Heparin - SQ TID BR[facility]GETTE Diltiazem HCl 125 mg/ Sodium 125 mls @ 7 mls/hr 12/01/18 11:45 12/04/18 13:30 Chloride IVPB 5 mg/hr TITR BR[facility]GETTE 5 mls/hr Administration Protocol 7 MG/HR Insulin Aspart 1 vial 12/03/18 10:32 12/05/18 06:05 Novolog Vial Sliding Scale - SQ 4 units ACHS [facility] Administration Protocol Insulin Detemir 10 units 11/24/18 22:00 12/04/18 22:16 Levemir Vial SQ 10 units HS [facility] Administration Methylprednisolone Sodium Succinate 80 mg 12/05/18 10:00 Solu-Medrol - IVPUSH DAILY BR[facility] Metoprolol Tartrate 5 mg 11/28/18 21:33 12/02/18 06:06 Lopressor Injection - IVPUSH 5 mg Q4H PRN Administration HR >120 Multivitamins/Minerals/Vitamin C 1 tab 11/24/18 10:00 12/04/18 13:27 Tab-A-Vit - PO Not Given DAILY [facility] Pantoprazole Sodium 40 mg 12/02/18 22:00 12/04/18 22:08 Protonix Iv IVPUSH 40 mg BID [facility] Administration Saliva Substitute 1 applic 12/05/18 06:36 12/05/18 07:08 Mouthkote Solution - MM 1 applic Q2H PRN Administration COUGH Thiamine HCl 200 mg 11/26/18 11:30 12/04/18 10:20 Vitamin B1 Injection - IVPB 200 mg DAILY BR[facility] Administration ASSESSMENT/PLAN: The pt is a 53F with a PMH of COPD, acute/chronic EtOH abuse (several glasses of rum daily), long-term tobacco abuse, TRINH, morbid obesity, DM, HTN, hyperlipidemia, cellulites, metabolic syndrome who was transferred to ICU due to worsening respiratory failure 11/27 - Patient w/ worsening mentation and respiratory status throughout the morning. Worsening repeat ABG. Decision was made to intubate for hypercapnic/ hypoxic respiratory failure 11/28 - Vented, ABG improving 12/01 - Extubated to HFNC. OGT D/C'ed. 12/02 - +PR3, plan for kidney bx in 7d (ASA held) 12/03 - Methylprednisolone 12/04 - Trial high flow, swallow eval 12/05 - Intubated, OGT placed, TF started; CT chest w/o for eval of ILD Neuro ETOH abuse, dependence -Patient no longer likely to withdraw given length of time in hospital Tobacco abuse -Educated -Nicotine patch CV Cardiology Dr Ronny Taveraflupepe -Apixaban -Lopressor IV push PRN -Diltiazem gtt -Digoxin HTN -Antihypertensives held 2/2 relative hypotension Hypervolemia w/ pulmonary congestion -Lasix 40mg IV PRN Pulm Acute hypercapnic respiratory failure due to pulmonary edema can Not R/O CHF vs copd exacerbation -Continue symbicort -Continue broncodilators -s/p intubation 11/27/2018 for acute decompensation --Extubated 12/01/2018 -Patient was on continuous BiPap, failed wean to HFNC --Intubated 12/05/2018 for hypercapnic respiratory failure ILD new diagnosed on CT -Methylprednisolone 80mg IV daily -Will obtain CT chest w/o to evaluate for interval change in ILD GI Nutrition -OGT placed 12/05/2018 -TF -Thiamine, folate B12 daily GI Ppx -Protonix PITO -Avoid nephrotoxic agents -Nephrology consulted -Improving Hyperkalemia -Resolved Hypernatremia -Will give 1L D5w Heme DVT Ppx: scds, eliquis ID BLE Cellulitis -Not likely infectious in etiology -s/p Abx course -no further abx at this time Endo DM -BGM ACHS -ISS increased on 12/03 01/03 poor glycemic control Morbid obesity -Educated about low calories diet , losing weight , daily exercise LTD Bills- 11/25/2018 ETT- 12/05/2018 OGT- 12/05/2018 PIV Dispo: Patient continues to require ICU level of care. Visit type - Emergency Visit Emergency Visit: Yes ED Registration Date: 11/23/18 Care time: The patient presented to the Emergency Department on the above date and was hospitalized for further evaluation of their emergent condition. - New Patient This patient is new to me today: No - Critical Care Critical Care patient: Yes Total Critical Care Time (in minutes): 35 Critical Care Statement: The care of this patient involved high complexity decision making to prevent further life threatening deterioration of the patient 's condition and/or to evaluate & treat vital organ system(s) failure or risk of failure.
[2018-12-05 07:22] LABS: ALLENS TEST POSITIVE
[2018-12-05 07:24] LABS: ARTERIAL BLOOD GAS PCO2 72.7 mmHg (35-45)
[2018-12-05] MEDS ORDERED: HEPARIN NA (PORCINE) 5,000 UNITS/ML 1ML VIAL SQ SCH (08:15)
[2018-12-05] MEDS: DIGOXIN 0.5 MG/2 ML AMPUL IVPUSH SCH ×2 (09:43→10:00)
[2018-12-05] MEDS: GABAPENTIN 100 MG CAPSULE (FP) PO SCH (09:44)
[2018-12-05] MEDS: PANTOPRAZOLE SODIUM 40 MG VIAL IVPUSH SCH ×2 (09:44→21:23)
[2018-12-05] MEDS: BUDESONIDE/FORMETEROL FUMARATE 160/4.5 mcg INHALER IH SCH (09:45)
[2018-12-05] MEDS: MULTIVITAMINS (DAILY MVI) TABLET (FP) PO SCH (09:45)
[2018-12-05] MEDS: THIAMINE HCL 200 MG/2 ML VIAL IVPB SCH ×3 (09:46→23:00)
--- NOTE | 2018-12-05 09:56 | PN ---
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 (short form) - Note 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: pt seen/ examined in icu. chart reviewed family at bedside awake/ confused on Bipap Vital Signs Temp 99.2 F 12/05/18 06:00 Pulse 76 12/05/18 09:43 Resp 21 H 12/05/18 06:00 BP 136/72 12/05/18 06:00 Pulse Ox 94 L 12/05/18 07:02 Intake & Output 12/04/18 12/04/18 12/05/18 11:59 23:59 11:59 Intake Total 120 375 49 Output Total 1200 1450 Balance -1080 375 -1401 Weight 255 lb 15.307 oz 255 lb 8 oz Intake: IV 120 25 49 Cardizem Injection - 125 120 25 49 mg In Normal Saline - 100 ml @ 7 MG/HR 7 mls/hr IVPB TITR [facility], [facility] Rx#: [id number] IVPB 350 Output: Urine 1200 1450 Bills 1200 1450 Other: Voiding Method Indwelling Catheter Indwelling Catheter Bowel Movement No No Weight Measurement Method [facility] Medications Apixaban (Eliquis -) 5 mg PO BID [facility] Last Admin: 12/04/18 22:08 Dose: Not Given Budesonide/Formoterol Fumarate (Symbicort 160/4.5mcg -) 1 puff IH DAILY [facility] Last Admin: 12/05/18 09:45 Dose: Not Given Digoxin (Lanoxin Injection -) 0.125 mg IVPUSH DAILY [facility] Last Admin: 12/05/18 09:43 Dose: 0.5 mg Gabapentin (Neurontin -) 100 mg PO DAILY [facility] Last Admin: 12/05/18 09:44 Dose: Not Given Heparin Sodium (Porcine) (Heparin -) 5,000 unit SQ TID [facility] Last Admin: 12/05/18 09:43 Dose: 5,000 unit Diltiazem HCl 125 mg/ Sodium (Chloride) 125 mls @ 7 mls/hr IVPB TITR [facility]; Protocol Last Admin: 12/04/18 13:30 Dose: 5 mg/hr, 5 mls/hr Dextrose (D5w -) 1,000 mls @ 75 mls/hr IV ONCE ONE Stop: 12/05/18 20:29 Last Admin: 12/05/18 08:10 Dose: 75 mls/hr Insulin Aspart (Novolog Vial Sliding Scale -) 1 vial SQ ACHS [facility]; Protocol Last Admin: 12/05/18 06:05 Dose: 4 units Insulin Detemir (Levemir Vial) 10 units SQ HS [facility] Last Admin: 12/04/18 22:16 Dose: 10 units Methylprednisolone Sodium Succinate (Solu-Medrol -) 80 mg IVPUSH DAILY [facility] Metoprolol Tartrate (Lopressor Injection -) 5 mg IVPUSH Q4H PRN PRN Reason: HR >120 Last Admin: 12/02/18 06:06 Dose: 5 mg Multivitamins/Minerals/Vitamin C (Tab-A-Vit -) 1 tab PO DAILY [facility] Last Admin: 12/05/18 09:45 Dose: Not Given Pantoprazole Sodium (Protonix Iv) 40 mg IVPUSH BID [facility] Last Admin: 12/05/18 09:44 Dose: 40 mg Saliva Substitute (Mouthkote Solution -) 1 applic MM Q2H PRN PRN Reason: COUGH Last Admin: 12/05/18 07:08 Dose: 1 applic Thiamine HCl (Vitamin B1 Injection -) 200 mg IVPB DAILY [facility] Last Admin: 12/05/18 09:46 Dose: 200 mg CBC, BMP 12/05/18 05:30 CMP Sodium 165 mmol/L (136-145) H* 12/05/18 05:30 Potassium 4.7 mmol/L (3.5-5.1) 12/05/18 05:30 Chloride 120 mmol/L (98-107) H 12/05/18 05:30 Carbon Dioxide 42 mmol/L (21-32) H 12/05/18 05:30 Anion Gap 3 MMOL/L (8-16) L 12/05/18 05:30 BUN 121 mg/dL (7-18) H* 12/05/18 05:30 Creatinine 2.0 mg/dL (0.55-1.3) H 12/05/18 05:30 Creat Clearance w eGFR 25.96 (>60) 12/05/18 05:30 POC Glucometer 235.95888 UNITS (80-120) 12/04/18 22:13 Random Glucose 193 mg/dL (74-106) H 12/05/18 05:30 Hemoglobin A1c % 7.3 % (4.2-6.3) H 11/24/18 09:54 Lactic Acid 1.9 mmol/L (0.4-2.0) 11/24/18 15:28 Calcium 9.6 mg/dL (8.5-10.1) 12/05/18 05:30 Phosphorus 3.9 mg/dL (2.5-4.9) 12/05/18 05:30 Magnesium 3.2 mg/dL (1.8-2.4) H 12/05/18 05:30 Total Bilirubin 1.0 mg/dL (0.2-1) 12/05/18 05:30 AST 14 U/L (15-37) L 12/05/18 05:30 ALT 23 U/L (13-61) 12/05/18 05:30 Alkaline Phosphatase 88 U/L (45-117) 12/05/18 05:30 Creatine Kinase 38 IU/L (26-192) 11/23/18 16:40 Troponin I 0.07 ng/ml (0.00-0.05) H 12/03/18 12:10 B-Natriuretic Peptide 2700.4 pg/ml (5-125) H 11/28/18 05:15 Total Protein 6.7 g/dl (6.4-8.2) 12/05/18 05:30 Total Protein (PEP) 6.0 g/dL (6.0-8.5) 11/26/18 05:30 Albumin 3.3 g/dl (3.4-5.0) L 12/05/18 05:30 Albumin (PEP) 3.1 gm/dl (2.9-4.4) 11/26/18 05:30 Globulin 2.9 g/dL (2.2-3.9) 11/26/18 05:30 Albumin/Globulin Ratio 1.1 (0.7-1.7) 11/26/18 05:30 Beta Globulins 1.0 gm/dL (0.7-1.3) 11/26/18 05:30 Triglycerides 151 mg/dL (0-150) H 11/24/18 09:54 Cholesterol 168 mg/dL (50-200) 11/24/18 09:54 Total LDL Cholesterol 108 mg/dL (5-100) H 11/24/18 09:54 HDL Cholesterol 31 mg/dL (40-60) L 11/24/18 09:54 Angiotensin Convert Enz 8 U/L (14-82) L 11/27/18 09:05 TSH 1.03 uIU/ml (0.358-3.74) 11/24/18 09:54 digoxin level-- ordered Physical Exam. Constitutional: Yes: On bipap. Eyes: Yes: Conjunctiva Clear Neck: Yes: Supple Cardiovascular: Yes: s1, s2 Regular. Respiratory: Yes: Diminished. Gastrointestinal: Yes: Soft, Abdomen, Obese Edema: LLE: 2+, RLE: 2+ Neurological: Yes: Other (awake). Problem List - Problems (1) Acute respiratory failure with hypoxia and hypercapnia Code(s): J96.01 - ACUTE RESPIRATORY FAILURE WITH HYPOXIA; J96.02 - ACUTE RESPIRATORY FAILURE WITH HYPERCAPNIA (2) Atrial flutter Code(s): I48.92 - UNSPECIFIED ATRIAL FLUTTER (3) Bilateral lower extremity edema Code(s): R60.0 - LOCALIZED EDEMA (4) COPD exacerbation Code(s): J44.1 - CHRONIC OBSTRUCTIVE PULMONARY DISEASE W (ACUTE) EXACERBATION (5) Diabetes Code(s): E11.9 - TYPE 2 DIABETES MELLITUS WITHOUT COMPLICATIONS (6) Elevated LFTs Code(s): R94.5 - ABNORMAL RESULTS OF LIVER FUNCTION STUDIES (7) Hyperlipidemia Code(s): E78.5 - HYPERLIPIDEMIA, UNSPECIFIED (8) Morbid obesity Code(s): E66.01 - MORBID (SEVERE) OBESITY DUE TO EXCESS CALORIES (9) Acute renal failure Code(s): N17.9 - ACUTE KIDNEY FAILURE, UNSPECIFIED (10) Pulmonary hypertension Code(s): I27.20 - PULMONARY HYPERTENSION, UNSPECIFIED Assessment/Plan Overall condition remains critical . Monitor in icu continue present care monitor labs Sodium going high. Renal on case check digoxin level critical care following Condition stable but remains critical discussed with nursing staff/ Dr. Amado also Also discussed with pts mother on phone. will follow. Problem List - Problems (1) Acute respiratory failure with hypoxia and hypercapnia Code(s): J96.01 - ACUTE RESPIRATORY FAILURE WITH HYPOXIA; J96.02 - ACUTE RESPIRATORY FAILURE WITH HYPERCAPNIA (2) Atrial flutter Code(s): I48.92 - UNSPECIFIED ATRIAL FLUTTER (3) Bilateral lower extremity edema Code(s): R60.0 - LOCALIZED EDEMA (4) Diabetes Code(s): E11.9 - TYPE 2 DIABETES MELLITUS WITHOUT COMPLICATIONS (5) Elevated LFTs Code(s): R94.5 - ABNORMAL RESULTS OF LIVER FUNCTION STUDIES (6) Hyperlipidemia Code(s): E78.5 - HYPERLIPIDEMIA, UNSPECIFIED (7) Morbid obesity Code(s): E66.01 - MORBID (SEVERE) OBESITY DUE TO EXCESS CALORIES (8) Acute renal failure Code(s): N17.9 - ACUTE KIDNEY FAILURE, UNSPECIFIED (9) Pulmonary hypertension Code(s): I27.20 - PULMONARY HYPERTENSION, UNSPECIFIED
[2018-12-05 10:03] LABS: ANION GAP 2 MMOL/L (8-16); CALCIUM 9.2 mg/dL (8.5-10.1); CHLORIDE 119 mmol/L (98-107); CO2 43 mmol/L (21-32); GLUCOSE,RANDOM 195 mg/dL (74-106); POTASSIUM 4.5 mmol/L (3.5-5.1)
[2018-12-05 10:09] LABS: BLOOD UREA NITROGEN 120 mg/dL (7-18); SODIUM 164 mmol/L (136-145)
[2018-12-05] MEDS: methylPREDNISolone NA SUCC 40 MG/1 ML VIAL IVPUSH SCH (10:10)
[2018-12-05 11:30] LABS: ANISOCYTOSIS 2+; MACROCYTOSIS 0; OVALOCYTE 1+; PLATELET ESTIMATE DECREASED; TEAR DROP CELLS 1+
[2018-12-05] MEDS ORDERED: ROCURONIUM BROMIDE 50 MG/5 ML VIAL IV ONE (11:34)
[2018-12-05] MEDS ORDERED: PROPOFOL 200 MG/20 ML VIAL IVPUSH ONE (11:35)
[2018-12-05] MEDS ORDERED: PROPOFOL 1,000,000 MCG/100 ML VIAL ONE (11:35)
--- NOTE | 2018-12-05 12:04 | PROC ---
Intubation - Intubation Reason for Intubation: Respiratory Insufficiency, Respiratory Failure, Ventilatory Failure Time of Intubation: 11:50 Intubation Method: orotracheal Blade used: Glidescope Tube Size (cm): 7.5 Tube position @ lip (cm): 22 Tube position confirmed by: Direct visualization, CO2 detector, Chest x-ray, Breath sounds Breath Sounds after Intubation: equal Post Intubation Xray: Yes Remarks: Patient with small oral airway, anterior airway, first pass success w/ glidescope.
--- NOTE | 2018-12-05 12:35 | PN ---
Teaching Attending Note Name of Resident: Heriberto Urena ATTENDING PHYSICIAN STATEMENT I saw and evaluated the patient. I reviewed the resident's note and discussed the case with the resident. I agree with the resident's findings and plan as documented. SUBJECTIVE: Patient seen and examined in the ICU. No overall change in condition. Family at bedside. Have agreed for re-intubation and continued treatment. CXR: No gross change in bibasilar airspace disease OBJECTIVE: Intake & Output 12/02/18 12/03/18 12/04/18 12/05/18 23:59 23:59 23:59 23:59 Intake Total 399.3 740 495 49 Output Total 3900 3000 1200 1450 Balance -3500.7 -2260 -705 -1401 Weight 276 lb 3.827 oz 264 lb 6 oz 255 lb 15.307 oz 255 lb 8 oz Last Vital Signs Temp Pulse Resp BP Pulse Ox 99.2 F 81 21 H 136/72 95 12/05/18 06:00 12/05/18 06:00 12/05/18 06:00 12/05/18 06:00 12/05/18 09:15 Active Medications Apixaban (Eliquis -) 5 mg PO BID [facility] Last Admin: 12/04/18 22:08 Dose: Not Given Budesonide/Formoterol Fumarate (Symbicort 160/4.5mcg -) 1 puff IH DAILY [facility] Last Admin: 12/05/18 09:45 Dose: Not Given Digoxin (Lanoxin Injection -) 0.125 mg IVPUSH DAILY [facility] Last Admin: 12/04/18 10:16 Dose: 0.125 mg Gabapentin (Neurontin -) 100 mg PO DAILY [facility] Last Admin: 12/05/18 09:44 Dose: Not Given Heparin Sodium (Porcine) (Heparin -) 5,000 unit SQ TID [facility] Last Admin: 12/05/18 09:43 Dose: 5,000 unit Diltiazem HCl 125 mg/ Sodium (Chloride) 125 mls @ 7 mls/hr IVPB TITR [facility]; Protocol Last Admin: 12/04/18 13:30 Dose: 5 mg/hr, 5 mls/hr Dextrose (D5w -) 1,000 mls @ 75 mls/hr IV ONCE ONE Stop: 12/05/18 20:29 Last Admin: 12/05/18 08:10 Dose: 75 mls/hr Insulin Aspart (Novolog Vial Sliding Scale -) 1 vial SQ ACHS [facility]; Protocol Last Admin: 12/05/18 06:05 Dose: 4 units Insulin Detemir (Levemir Vial) 10 units SQ HS [facility] Last Admin: 12/04/18 22:16 Dose: 10 units Methylprednisolone Sodium Succinate (Solu-Medrol -) 80 mg IVPUSH DAILY [facility] Last Admin: 12/05/18 10:10 Dose: 80 mg Metoprolol Tartrate (Lopressor Injection -) 5 mg IVPUSH Q4H PRN PRN Reason: HR >120 Last Admin: 12/02/18 06:06 Dose: 5 mg Multivitamins/Minerals/Vitamin C (Tab-A-Vit -) 1 tab PO DAILY [facility] Last Admin: 12/05/18 09:45 Dose: Not Given Pantoprazole Sodium (Protonix Iv) 40 mg IVPUSH BID [facility] Last Admin: 12/05/18 09:44 Dose: 40 mg Propofol (Diprivan -) 100,000 mcg IVPUSH ONCE ONE Stop: 12/05/18 11:36 Rocuronium Gray (Zemuron -) 50 mg IV ONCE ONE Stop: 12/05/18 11:35 Saliva Substitute (Mouthkote Solution -) 1 applic MM Q2H PRN PRN Reason: COUGH Last Admin: 12/05/18 07:08 Dose: 1 applic Thiamine HCl (Vitamin B1 Injection -) 200 mg IVPB DAILY [facility] Last Admin: 12/05/18 09:46 Dose: 200 mg Gen: [place]ale on NIPPV Heart: RRR Lung: bibasilar rhonchi, distant breath sounds Abd: soft, nontender Ext: + edema 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: 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, non-focal Laboratory Results - last 24 hr 11/26/18 12/04/18 12/04/18 05:30 11:29 15:00 WBC RBC Hgb Hct MCV MCH MCHC RDW Plt Count MPV Absolute Neuts (auto) Neutrophils % Neutrophils % (Manual) Band Neutrophils % Lymphocytes % Lymphocytes % (Manual) Monocytes % Monocytes % (Manual) Eosinophils % Eosinophils % (Manual) Basophils % Basophils % (Manual) Myelocytes % (Man) Promyelocytes % (Man) Blast Cells % (Manual) Nucleated RBC % Metamyelocytes Hypochromia Platelet Estimate Platelet Comment Polychromasia Poikilocytosis Anisocytosis Microcytosis Macrocytosis Spherocytes Tear Drop Cells Ovalocytes Stomatocytes Puncture Site Right radial ABG pH 7.37 ABG pCO2 at Pt Temp 73.2 H* ABG pO2 at Pt Temp 58.0 L ABG HCO3 41.1 H* ABG O2 Sat (Measured) 87.3 L ABG O2 Content 17.4 ABG Base Excess 12.4 H Mendoza Test Positive Oxygen Flow Rate Yes Sodium Potassium Chloride Carbon Dioxide Anion Gap BUN Creatinine Creat Clearance w eGFR POC Glucometer 213.32530 Random Glucose Calcium Phosphorus Magnesium Total Bilirubin AST ALT Alkaline Phosphatase Total Protein Albumin Digoxin Serum YASH Interpret No Result Required. YASH Interpretation No Result Required. IEP IgG No Result Required. IEP IgA No Result Required. IEP IgM No Result Required. 12/04/18 12/04/18 12/05/18 16:18 22:13 05:18 WBC RBC Hgb Hct MCV MCH MCHC RDW Plt Count MPV Absolute Neuts (auto) Neutrophils % Neutrophils % (Manual) Band Neutrophils % Lymphocytes % Lymphocytes % (Manual) Monocytes % Monocytes % (Manual) Eosinophils % Eosinophils % (Manual) Basophils % Basophils % (Manual) Myelocytes % (Man) Promyelocytes % (Man) Blast Cells % (Manual) Nucleated RBC % Metamyelocytes Hypochromia Platelet Estimate Platelet Comment Polychromasia Poikilocytosis Anisocytosis Microcytosis Macrocytosis Spherocytes Tear Drop Cells Ovalocytes Stomatocytes Puncture Site ABG pH ABG pCO2 at Pt Temp ABG pO2 at Pt Temp ABG HCO3 ABG O2 Sat (Measured) ABG O2 Content ABG Base Excess Mendoza Test Oxygen Flow Rate Sodium Potassium Chloride Carbon Dioxide Anion Gap BUN Creatinine Creat Clearance w eGFR POC Glucometer 245.68938 235.47395 194.39084 Random Glucose Calcium Phosphorus Magnesium Total Bilirubin AST ALT Alkaline Phosphatase Total Protein Albumin Digoxin Serum YASH Interpret YASH Interpretation IEP IgG IEP IgA IEP IgM 12/05/18 12/05/18 12/05/18 05:30 05:30 07:08 WBC 13.0 H RBC 4.59 Hgb 14.6 Hct 48.2 H MCV 104.8 H MCH 31.8 MCHC 30.4 L RDW 15.6 Plt Count 114 L MPV 10.2 Absolute Neuts (auto) 12.3 H Neutrophils % 94.6 H Neutrophils % (Manual) 94.0 H Band Neutrophils % 2.0 Lymphocytes % 1.9 L Lymphocytes % (Manual) 0.0 L Monocytes % 3.4 L Monocytes % (Manual) 3 L D Eosinophils % 0.0 D Eosinophils % (Manual) 0.0 Basophils % 0.1 Basophils % (Manual) 0.0 Myelocytes % (Man) 0 Promyelocytes % (Man) 0 Blast Cells % (Manual) 0 Nucleated RBC % 0 Metamyelocytes 0 Hypochromia 0 Platelet Estimate Decreased Platelet Comment Present Polychromasia 1+ Poikilocytosis 1+ Anisocytosis 2+ Microcytosis 1+ Macrocytosis 0 Spherocytes 1+ Tear Drop Cells 1+ Ovalocytes 1+ Stomatocytes 1+ Puncture Site Right radial ABG pH 7.38 ABG pCO2 at Pt Temp 72.7 H* ABG pO2 at Pt Temp 71.6 L D ABG HCO3 42.2 H* ABG O2 Sat (Measured) 93.2 ABG O2 Content 25.1 H ABG Base Excess 12.1 H Mendoza Test Positive Oxygen Flow Rate Yes Sodium 165 H* Potassium 4.7 Chloride 120 H Carbon Dioxide 42 H Anion Gap 3 L BUN 121 H* Creatinine 2.0 H Creat Clearance w eGFR 25.96 POC Glucometer Random Glucose 193 H Calcium 9.6 Phosphorus 3.9 Magnesium 3.2 H Total Bilirubin 1.0 AST 14 L ALT 23 Alkaline Phosphatase 88 Total Protein 6.7 Albumin 3.3 L Digoxin Serum YASH Interpret YASH Interpretation IEP IgG IEP IgA IEP IgM 12/05/18 09:00 WBC RBC Hgb Hct MCV MCH MCHC RDW Plt Count MPV Absolute Neuts (auto) Neutrophils % Neutrophils % (Manual) Band Neutrophils % Lymphocytes % Lymphocytes % (Manual) Monocytes % Monocytes % (Manual) Eosinophils % Eosinophils % (Manual) Basophils % Basophils % (Manual) Myelocytes % (Man) Promyelocytes % (Man) Blast Cells % (Manual) Nucleated RBC % Metamyelocytes Hypochromia Platelet Estimate Platelet Comment Polychromasia Poikilocytosis Anisocytosis Microcytosis Macrocytosis Spherocytes Tear Drop Cells Ovalocytes Stomatocytes Puncture Site ABG pH ABG pCO2 at Pt Temp ABG pO2 at Pt Temp ABG HCO3 ABG O2 Sat (Measured) ABG O2 Content ABG Base Excess Mendoza Test Oxygen Flow Rate Sodium 164 H* Potassium 4.5 Chloride 119 H Carbon Dioxide 43 H Anion Gap 2 L BUN 120 H* Creatinine 2.0 H Creat Clearance w eGFR 25.96 POC Glucometer Random Glucose 195 H Calcium 9.2 Phosphorus Magnesium Total Bilirubin AST ALT Alkaline Phosphatase Total Protein Albumin Digoxin 1.59 Serum YASH Interpret YASH Interpretation IEP IgG IEP IgA IEP IgM ASSESSMENT AND PLAN: Acute on Chronic Hypoxic and Hypercapneic Respiratory Failure Acute COPD Exacerbation Morbid Obesity Obstructive Sleep Apnea/Obesity Hypoventilation Syndrome Suspect Right Heart Failure Volume Overload Mediastinal Lymphadenopathy Atrial Flutter with RVR Cellulitis Acute Kidney Injury Alcohol Abuse - Re-intubation - Inhaled bronchodilators - Lasix daily - Off ABX - Monitor urine output, creatinine - Rate control - Continue anticoagulation - Outpatient f/u of mediastinal lymphadenopathy - Enteral feeds - ICU monitoring Dr Dixon Critical care time spent in reviewing chart, evaluating patient and formulating plan 35 min
[2018-12-05] MEDS ORDERED: fentaNYL CITRATE 250 MCG/5 ML VIAL ONE ×2 (13:04→23:44)
[2018-12-05] MEDS: PROPOFOL 1,000,000 MCG/100 ML VIAL IVPB SCH (13:32)
[2018-12-05] MEDS: FENTANYL INJECTION 500 MCG in DEXTROSE 5%-WATER - 90 ML IVPB SCH (13:33)
[2018-12-05] MEDS: DILTIAZEM INJECTION 125 MG in SODIUM CHLORIDE 100 ML IVPB SCH (14:15)
[2018-12-05] MEDS: FOLIC ACID 1 MG TABLET (FP) PO SCH (15:23)
[2018-12-05] MEDS: CYANOCOBALAMIN (VITAMIN B-12) 100 MCG TABLET PO SCH (15:28)
--- NOTE | 2018-12-05 16:44 | PN ---
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, Physician History of Present Illness: Pt seen and examined at bedside. She is now intubated. She remains in the ICU. - Current Medication List Current Medications: Active Medications Apixaban (Eliquis -) 5 mg PO BID [facility] Last Admin: 12/04/18 22:08 Dose: Not Given Budesonide/Formoterol Fumarate (Symbicort 160/4.5mcg -) 1 puff IH DAILY [facility] Last Admin: 12/05/18 09:45 Dose: Not Given Cyanocobalamin (Vitamin B12 -) 100 mcg PO DAILY [facility] Last Admin: 12/05/18 15:28 Dose: 100 mcg Digoxin (Lanoxin Injection -) 0.125 mg IVPUSH DAILY [facility] Last Admin: 12/05/18 10:00 Dose: Not Given Folic Acid (Folic Acid -) 1 mg PO DAILY [facility] Last Admin: 12/05/18 15:23 Dose: 1 mg Gabapentin (Neurontin -) 100 mg PO DAILY [facility] Last Admin: 12/05/18 09:44 Dose: Not Given Diltiazem HCl 125 mg/ Sodium (Chloride) 125 mls @ 7 mls/hr IVPB TITR [facility]; Protocol Last Admin: 12/05/18 14:15 Dose: Not Given Dextrose (D5w -) 1,000 mls @ 75 mls/hr IV ONCE ONE Stop: 12/05/18 20:29 Last Admin: 12/05/18 08:10 Dose: 75 mls/hr Fentanyl 500 mcg/ Dextrose 100 mls @ 10 mls/hr IVPB TITR [facility]; Protocol Last Admin: 12/05/18 13:33 Dose: 50 mcg/hr, 10 mls/hr Propofol (Diprivan -) 1,000,000 mcg in 100 mls @ 6.954 mls/hr IVPB TITR [facility]; Protocol Last Admin: 12/05/18 13:32 Dose: 10 mcg/kg/min, 6.954 mls/hr Insulin Aspart (Novolog Vial Sliding Scale -) 1 vial SQ ACHS [facility]; Protocol Last Admin: 12/05/18 13:31 Dose: 6 units Insulin Detemir (Levemir Vial) 10 units SQ HS [facility] Last Admin: 12/04/18 22:16 Dose: 10 units Methylprednisolone Sodium Succinate (Solu-Medrol -) 80 mg IVPUSH DAILY [facility] Last Admin: 12/05/18 10:10 Dose: 80 mg Metoprolol Tartrate (Lopressor Injection -) 5 mg IVPUSH Q4H PRN PRN Reason: HR >120 Last Admin: 12/02/18 06:06 Dose: 5 mg Multivitamins/Minerals/Vitamin C (Tab-A-Vit -) 1 tab PO DAILY [facility] Last Admin: 12/05/18 09:45 Dose: Not Given Pantoprazole Sodium (Protonix Iv) 40 mg IVPUSH BID [facility] Last Admin: 12/05/18 09:44 Dose: 40 mg Saliva Substitute (Mouthkote Solution -) 1 applic MM Q2H PRN PRN Reason: COUGH Last Admin: 12/05/18 07:08 Dose: 1 applic Thiamine HCl (Vitamin B1 Injection -) 500 mg IVPB Q8H-IV [facility] Last Admin: 12/05/18 15:20 Dose: 500 mg - Objective Vital Signs: Vital Signs Temperature 99.2 F 12/05/18 06:00 Pulse Rate 50 L 12/05/18 14:15 Respiratory Rate 21 H 12/05/18 14:00 Blood Pressure 138/66 12/05/18 14:15 O2 Sat by Pulse Oximetry (%) 100 12/05/18 11:15 Constitutional: Yes: Calm Eyes: Yes: Conjunctiva Clear HENT: Yes: Atraumatic Neck: Yes: Supple Cardiovascular: Yes: S1, S2 Respiratory: Yes: Mechanically Ventilated Gastrointestinal: Yes: Soft, Abdomen, Obese Genitourinary: Yes: Bills Present Musculoskeletal: Yes: Muscle Weakness Edema: Yes Edema: LLE: Trace, RLE: Trace Neurological: Yes: Lethargy Labs: CBC, BMP 12/05/18 05:30 12/05/18 09:00 INR, PTT INR 1.13 (0.83-1.09) H 11/23/18 16:40 - ....Imaging Chest X-ray: Report Reviewed Problem List - Problems (1) Hyperkalemia Code(s): E87.5 - HYPERKALEMIA (2) Acute on chronic respiratory failure with hypoxia and hypercapnia Code(s): J96.21 - ACUTE AND CHRONIC RESPIRATORY FAILURE WITH HYPOXIA; J96.22 - ACUTE AND CHRONIC RESPIRATORY FAILURE WITH HYPERCAPNIA (3) Acute renal failure Code(s): N17.9 - ACUTE KIDNEY FAILURE, UNSPECIFIED (4) Alcoholism Code(s): F10.20 - ALCOHOL DEPENDENCE, UNCOMPLICATED (5) Atrial flutter Code(s): I48.92 - UNSPECIFIED ATRIAL FLUTTER (6) Bilateral lower extremity edema Code(s): R60.0 - LOCALIZED EDEMA (7) COPD exacerbation Code(s): J44.1 - CHRONIC OBSTRUCTIVE PULMONARY DISEASE W (ACUTE) EXACERBATION Assessment/Plan Current Medications Generic Name Dose Route Start Last Admin Trade Name Freq PRN Reason Stop Dose Admin Apixaban 5 mg 11/24/18 10:00 12/04/18 22:08 Eliquis - PO Not Given BID [facility] Budesonide/Formoterol Fumarate 1 puff 11/24/18 10:00 12/05/18 09:45 Symbicort 160/4.5mcg - IH Not Given DAILY [facility] Cyanocobalamin 100 mcg 12/05/18 13:00 12/05/18 15:28 Vitamin B12 - PO 100 mcg DAILY [facility] Administration Digoxin 0.125 mg 12/02/18 12:15 12/05/18 10:00 Lanoxin Injection - IVPUSH Not Given DAILY [facility] Folic Acid 1 mg 12/05/18 14:15 12/05/18 15:23 Folic Acid - PO 1 mg DAILY [facility] Administration Gabapentin 100 mg 11/24/18 10:00 12/05/18 09:44 Neurontin - PO Not Given DAILY [facility] Diltiazem HCl 125 mg/ Sodium 125 mls @ 7 mls/hr 12/01/18 11:45 12/05/18 14:15 Chloride IVPB Not Given TITR [facility] Protocol 7 MG/HR Dextrose 1,000 mls @ 75 mls/hr 12/05/18 07:10 12/05/18 08:10 D5w - IV 12/05/18 20:29 75 mls/hr ONCE ONE Administration Fentanyl 500 mcg/ Dextrose 100 mls @ 10 mls/hr 12/05/18 12:45 12/05/18 13:33 IVPB 50 mcg/hr TITR [facility] 10 mls/hr Administration Protocol 50 MCG/HR Propofol 1,000,000 mcg in 100 mls @ 6.954 mls/hr 12/05/18 12:45 12/05/18 13: 32 Diprivan - IVPB 10 mcg/kg/min TITR [facility] 6.954 mls/hr Administration Protocol 10 MCG/KG/MIN Insulin Aspart 1 vial 12/03/18 10:32 12/05/18 13:31 Novolog Vial Sliding Scale - SQ 6 units ACHS [facility] Administration Protocol Insulin Detemir 10 units 11/24/18 22:00 12/04/18 22:16 Levemir Vial SQ 10 units HS [facility] Administration Methylprednisolone Sodium Succinate 80 mg 12/05/18 10:00 12/05/18 10:10 Solu-Medrol - IVPUSH 80 mg DAILY [facility] Administration Metoprolol Tartrate 5 mg 11/28/18 21:33 12/02/18 06:06 Lopressor Injection - IVPUSH 5 mg Q4H PRN Administration HR >120 Multivitamins/Minerals/Vitamin C 1 tab 11/24/18 10:00 12/05/18 09:45 Tab-A-Vit - PO Not Given DAILY [facility] Pantoprazole Sodium 40 mg 12/02/18 22:00 12/05/18 09:44 Protonix Iv IVPUSH 40 mg BID [facility] Administration Saliva Substitute 1 applic 12/05/18 06:36 12/05/18 07:08 Mouthkote Solution - MM 1 applic Q2H PRN Administration COUGH Thiamine HCl 500 mg 12/05/18 14:15 12/05/18 15:20 Vitamin B1 Injection - IVPB 500 mg Q8H-IV [facility] Administration Laboratory Tests 12/03/18 21:20 c-ANCA Pending Proteinase 3 (PR3) Pending p-ANCA Pending Atypical p-ANCA Pending Myeloperoxidase Ab Pending Impression 1. PTIO 2. hyperkalemia 3. a-flutter 4. resp failure requiring bipap 5. DM 6. HTN 7. active smoker 8. etoh abuse 9. obesity 10. interstitial lung disease on CT scan 11. resp acidosis 12. COPD 13. positive pr3 14. hypernatremia Plan - pt intubated - ng tube places, start free water and monitor sodium levels - hold lasix - monitor urine output - follow up repeat serologies - asa on hold - cont d5w - discussed with ICU team - rheum follow up - pt has poor respiratory status - pt has a positive pr3 and a positive p-anca, although the c-anca is negative, follow repeat - overall prognosis guarded - will follow closely
[2018-12-05 18:22] LABS: ARTERIAL BLD GAS O2 SATURATION 97.7 % (90-98.9); ARTERIAL BLOOD GAS BASE EXCESS 13.4 meq/l (-2-2); ARTERIAL BLOOD GAS PO2 99.4 mmHg (80-100); ARTERIAL BLOOD GAS pH 7.44 (7.35-7.45)
[2018-12-05 18:23] LABS: ALLENS TEST POSITIVE
[2018-12-05 18:27] LABS: ARTERIAL BLOOD GAS PCO2 60.9 mmHg (35-45)
[2018-12-05] MEDS: APIXABAN 5 MG TABLET PO SCH (21:23)
[2018-12-05] MEDS: INSULIN (LEVEMIR) 100 UNITS/ML UNITS SQ SCH (22:21)
[2018-12-05] MEDS ORDERED: THIAMINE HCL 200 MG/2 ML VIAL IVPB SCH (22:30)
--- NOTE | 2018-12-06 00:58 | PN ---
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, Physician Chief Complaint: Pt remains on Bipap; opens eyes, but no otherwise able to communicate History of Present Illness: 53 YO white woman with h/o COPD (placed on steroid course 2 days ago without relief) acute/chronic alcoholism (several glasses of rum daily), long-term cigarette smoker, sleep apnea, morbid obesity, DM, HTN, hyperlipidemia, chronic erythema of LEs with hx cellulitis, metabolic syndrome, who is now admitted with SOB and wheezing similar to her prior COPD exacerbation. She additionally notes awakening in the middle of the night last night with visual hallucinations. She additionally notes abdominal swelling recently, believes she has an abdominal infection but does not know what kind. Denies h/o heart arrhythmia. She has noticed her lips are more blue than normal. - Current Medication List Current Medications: Active Medications Apixaban (Eliquis -) 5 mg PO BID [facility] Last Admin: 12/05/18 21:23 Dose: 5 mg Budesonide/Formoterol Fumarate (Symbicort 160/4.5mcg -) 1 puff IH DAILY [facility] Last Admin: 12/05/18 09:45 Dose: Not Given Cyanocobalamin (Vitamin B12 -) 100 mcg PO DAILY [facility] Last Admin: 12/05/18 15:28 Dose: 100 mcg Digoxin (Lanoxin Injection -) 0.125 mg IVPUSH DAILY [facility] Last Admin: 12/05/18 10:00 Dose: Not Given Folic Acid (Folic Acid -) 1 mg PO DAILY [facility] Last Admin: 12/05/18 15:23 Dose: 1 mg Gabapentin (Neurontin -) 100 mg PO DAILY [facility] Last Admin: 12/05/18 09:44 Dose: Not Given Diltiazem HCl 125 mg/ Sodium (Chloride) 125 mls @ 7 mls/hr IVPB TITR [facility]; Protocol Last Admin: 12/05/18 14:15 Dose: Not Given Fentanyl 500 mcg/ Dextrose 100 mls @ 10 mls/hr IVPB TITR [facility]; Protocol Last Admin: 12/05/18 13:33 Dose: 50 mcg/hr, 10 mls/hr Propofol (Diprivan -) 1,000,000 mcg in 100 mls @ 6.954 mls/hr IVPB TITR [facility]; Protocol Last Admin: 12/05/18 13:32 Dose: 10 mcg/kg/min, 6.954 mls/hr Insulin Aspart (Novolog Vial Sliding Scale -) 1 vial SQ ACHS [facility]; Protocol Last Admin: 12/05/18 22:21 Dose: 8 units Insulin Detemir (Levemir Vial) 10 units SQ HS [facility] Last Admin: 12/05/18 22:21 Dose: 10 units Methylprednisolone Sodium Succinate (Solu-Medrol -) 80 mg IVPUSH DAILY [facility] Last Admin: 12/05/18 10:10 Dose: 80 mg Metoprolol Tartrate (Lopressor Injection -) 5 mg IVPUSH Q4H PRN PRN Reason: HR >120 Last Admin: 12/02/18 06:06 Dose: 5 mg Multivitamins/Minerals/Vitamin C (Tab-A-Vit -) 1 tab PO DAILY [facility] Last Admin: 12/05/18 09:45 Dose: Not Given Pantoprazole Sodium (Protonix Iv) 40 mg IVPUSH BID [facility] Last Admin: 12/05/18 21:23 Dose: 40 mg Saliva Substitute (Mouthkote Solution -) 1 applic MM Q2H PRN PRN Reason: COUGH Last Admin: 12/05/18 07:08 Dose: 1 applic Thiamine HCl (Vitamin B1 Injection -) 500 mg IVPB TID [facility] Last Admin: 12/05/18 23:00 Dose: 500 mg - Objective Vital Signs: Vital Signs Temperature 99 F 12/05/18 22:00 Pulse Rate 50 L 12/06/18 00:00 Respiratory Rate 18 12/06/18 00:29 Blood Pressure 138/64 12/06/18 00:00 O2 Sat by Pulse Oximetry (%) 99 12/05/18 20:34 Constitutional: Yes: Anxious Eyes: Yes: WNL HENT: Yes: WNL Neck: Yes: Decreased ROM Cardiovascular: Yes: S1 (varies in intensity), S2 Respiratory: Yes: Diminished, Rhonchi, SOB Gastrointestinal: Yes: Soft, Abdomen, Obese Genitourinary: No: Anuria Breast(s): Yes: WNL Musculoskeletal: Yes: Muscle Weakness Extremities: Yes: Cool, Erythema Edema: No Peripheral Pulses WNL: Yes Integumentary: Yes: Erythema Neurological: Yes: Unresponsive, Weakness Psychiatric: Yes: Other Labs: CBC, BMP 12/05/18 05:30 12/05/18 09:00 INR, PTT INR 1.13 (0.83-1.09) H 11/23/18 16:40 - ....Imaging Chest X-ray: Image Reviewed (moderate CHF (rel. unchanged from 12/03/17)) Other: Image Reviewed (telemetry: AF; controlled VR) Problem List - Problems (1) Atrial flutter Assessment/Plan: On diltiazem for HR control; PO diltiazem when cleared by swallowing team, and then titrate off IV drip. Digoxin loading has aided in controlling HR; started daily dose. Keep digoxin level 0.5-1.0. On apixaban for anticoagulation. ECHO: unable to assess LVEF; repeat when pt able to turn on left side for better windows (or get MUGA).If LVEF is significantly reduced, change diltiazem to beta nico (appears to tolerate lopressor IVP prn presently). Code(s): I48.92 - UNSPECIFIED ATRIAL FLUTTER Qualifiers: Atrial flutter type: unspecified Qualified Code(s): I48.92 - Unspecified atrial flutter (2) Morbid obesity Code(s): E66.01 - MORBID (SEVERE) OBESITY DUE TO EXCESS CALORIES (3) Hyperlipidemia Assessment/Plan: elevated LDL cholesterol. Start statin (LFTs now normal); keep LDL cholesterol < 70 mg/dL. Code(s): E78.5 - HYPERLIPIDEMIA, UNSPECIFIED (4) HTN (hypertension) Assessment/Plan: On diltiazem (start PO when cleared by swallwoing team0. F/u ECHO for LVEF, wall thickness, chamber sizes, valve status when able to position pt for better windows.. Consider MUGA if unable to ottain LVEF from ECHO. Code(s): I10 - ESSENTIAL (PRIMARY) HYPERTENSION (5) Diabetes Code(s): E11.9 - TYPE 2 DIABETES MELLITUS WITHOUT COMPLICATIONS (6) [place] cardiac risk >20% in next 10 years Assessment/Plan: TNI negative x 2. BP and glucose control. Keep LDL cholesterol < 70 mg/dL. Smoking cessation. Dietary consult; weight loss. Exercise will be important in the future. Coronary artery evaluation when stable (stress MIBI and/or coronary angiogram). Code(s): Z91.89 - OTH PERSONAL RISK FACTORS, NOT ELSEWHERE CLASSIFIED (7) Alcoholism Code(s): F10.20 - ALCOHOL DEPENDENCE, UNCOMPLICATED (8) Cellulitis Code(s): L03.90 - CELLULITIS, UNSPECIFIED (9) Ascites Code(s): R18.8 - OTHER ASCITES (10) Interstitial lung disease Assessment/Plan: Moderate pulmonary HTN and RV hypokinesis. R/o sarcoid. R/o sleep apnea. Code(s): J84.9 - INTERSTITIAL PULMONARY DISEASE, UNSPECIFIED (11) CHF (congestive heart failure) Assessment/Plan: Elevated BNP. F/u BUn/Cr, electrolytes, daily weight, IS and Os,. ECHO repeat for LVEF when pt better able to cooperate (and move on left side); otherwise, consder MUGA for LVEF. Control of AF/flutter HR presently with diltiazem and digoxin. Code(s): I50.9 - HEART FAILURE, UNSPECIFIED (12) Renal dysfunction Assessment/Plan: BUN/Cr 120/2.0);deteriorating renal status; nephology w/u in progress. If biopsy is needed, ASA will be held. Code(s): N28.9 - DISORDER OF KIDNEY AND URETER, UNSPECIFIED (13) Respiratory failure Assessment/Plan: ISLD. Acute CHF. RV hypokinesis (moderate; with moderate pulmonary HTN). 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 Code(s): J96.90 - RESPIRATORY FAILURE, UNSP, UNSP W HYPOXIA OR HYPERCAPNIA
--- NOTE | 2018-12-06 01:07 | PN ---
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, Physician Chief Complaint: Pt remains on NIPPV; tachypneic; able to say only "water"; does not move limbs on verbal request. Health-care proxy at bedside. History of Present Illness: 53 YO white woman with h/o COPD (placed on steroid course 2 days ago without relief) acute/chronic alcoholism (several glasses of rum daily), long-term cigarette smoker, sleep apnea, morbid obesity, DM, HTN, hyperlipidemia, chronic erythema of LEs with hx cellulitis, metabolic syndrome, who is now admitted with SOB and wheezing similar to her prior COPD exacerbation. She additionally notes awakening in the middle of the night last night with visual hallucinations. She additionally notes abdominal swelling recently, believes she has an abdominal infection but does not know what kind. Denies h/o heart arrhythmia. She has noticed her lips are more blue than normal. - Current Medication List Current Medications: Active Medications Apixaban (Eliquis -) 5 mg PO BID [facility] Last Admin: 12/05/18 21:23 Dose: 5 mg Budesonide/Formoterol Fumarate (Symbicort 160/4.5mcg -) 1 puff IH DAILY [facility] Last Admin: 12/05/18 09:45 Dose: Not Given Cyanocobalamin (Vitamin B12 -) 100 mcg PO DAILY [facility] Last Admin: 12/05/18 15:28 Dose: 100 mcg Digoxin (Lanoxin Injection -) 0.125 mg IVPUSH DAILY [facility] Last Admin: 12/05/18 10:00 Dose: Not Given Folic Acid (Folic Acid -) 1 mg PO DAILY [facility] Last Admin: 12/05/18 15:23 Dose: 1 mg Gabapentin (Neurontin -) 100 mg PO DAILY [facility] Last Admin: 12/05/18 09:44 Dose: Not Given Diltiazem HCl 125 mg/ Sodium (Chloride) 125 mls @ 7 mls/hr IVPB TITR [facility]; Protocol Last Admin: 12/05/18 14:15 Dose: Not Given Fentanyl 500 mcg/ Dextrose 100 mls @ 10 mls/hr IVPB TITR [facility]; Protocol Last Admin: 12/05/18 13:33 Dose: 50 mcg/hr, 10 mls/hr Propofol (Diprivan -) 1,000,000 mcg in 100 mls @ 6.954 mls/hr IVPB TITR [facility]; Protocol Last Admin: 12/05/18 13:32 Dose: 10 mcg/kg/min, 6.954 mls/hr Insulin Aspart (Novolog Vial Sliding Scale -) 1 vial SQ ACHS [facility]; Protocol Last Admin: 12/05/18 22:21 Dose: 8 units Insulin Detemir (Levemir Vial) 10 units SQ HS [facility] Last Admin: 12/05/18 22:21 Dose: 10 units Methylprednisolone Sodium Succinate (Solu-Medrol -) 80 mg IVPUSH DAILY [facility] Last Admin: 12/05/18 10:10 Dose: 80 mg Metoprolol Tartrate (Lopressor Injection -) 5 mg IVPUSH Q4H PRN PRN Reason: HR >120 Last Admin: 12/02/18 06:06 Dose: 5 mg Multivitamins/Minerals/Vitamin C (Tab-A-Vit -) 1 tab PO DAILY [facility] Last Admin: 12/05/18 09:45 Dose: Not Given Pantoprazole Sodium (Protonix Iv) 40 mg IVPUSH BID [facility] Last Admin: 12/05/18 21:23 Dose: 40 mg Saliva Substitute (Mouthkote Solution -) 1 applic MM Q2H PRN PRN Reason: COUGH Last Admin: 12/05/18 07:08 Dose: 1 applic Thiamine HCl (Vitamin B1 Injection -) 500 mg IVPB TID [facility] Last Admin: 12/05/18 23:00 Dose: 500 mg - Objective Vital Signs: Vital Signs Temperature 99 F 12/05/18 22:00 Pulse Rate 50 L 12/06/18 00:00 Respiratory Rate 18 12/06/18 00:29 Blood Pressure 138/64 12/06/18 00:00 O2 Sat by Pulse Oximetry (%) 99 12/05/18 20:34 Constitutional: Yes: Anxious, Moderate Distress, Obese Eyes: Yes: WNL HENT: Yes: WNL Neck: Yes: Decreased ROM Cardiovascular: Yes: Pulse Irregular Respiratory: Yes: Diminished, Poor Air Entry, SOB, Tachypnea Gastrointestinal: Yes: Soft, Abdomen, Obese Genitourinary: No: Anuria Breast(s): Yes: WNL Musculoskeletal: Yes: Muscle Weakness Extremities: Yes: Cool, Erythema Edema: Yes Edema: LLE: Trace, RLE: Trace Peripheral Pulses WNL: Yes Integumentary: Yes: Erythema Neurological: Yes: Weakness Psychiatric: Yes: Other Labs: CBC, BMP 12/05/18 05:30 12/05/18 09:00 INR, PTT INR 1.13 (0.83-1.09) H 11/23/18 16:40 Abnormal Lab Results 12/05/18 12/05/18 12/05/18 05:30 05:30 07:08 WBC 13.0 H Hct 48.2 H MCV 104.8 H MCHC 30.4 L Plt Count 114 L Absolute Neuts (auto) 12.3 H Neutrophils % 94.6 H Neutrophils % (Manual) 94.0 H Lymphocytes % 1.9 L Lymphocytes % (Manual) 0.0 L Monocytes % 3.4 L Monocytes % (Manual) 3 L D ABG pCO2 at Pt Temp 72.7 H* ABG pO2 at Pt Temp 71.6 L D ABG HCO3 42.2 H* ABG O2 Content 25.1 H ABG Base Excess 12.1 H Sodium 165 H* Chloride 120 H Carbon Dioxide 42 H Anion Gap 3 L BUN 121 H* Creatinine 2.0 H Random Glucose 193 H Magnesium 3.2 H AST 14 L Albumin 3.3 L 12/05/18 12/05/18 09:00 18:00 WBC Hct MCV MCHC Plt Count Absolute Neuts (auto) Neutrophils % Neutrophils % (Manual) Lymphocytes % Lymphocytes % (Manual) Monocytes % Monocytes % (Manual) ABG pCO2 at Pt Temp 60.9 H* ABG pO2 at Pt Temp ABG HCO3 40.3 H* ABG O2 Content ABG Base Excess 13.4 H Sodium 164 H* Chloride 119 H Carbon Dioxide 43 H Anion Gap 2 L BUN 120 H* Creatinine 2.0 H Random Glucose 195 H Magnesium AST Albumin - ....Imaging Chest X-ray: Image Reviewed (worsening CHF) Other: Image Reviewed (telemetry:AF, with period of RVR) Problem List - Problems (1) Atrial flutter Assessment/Plan: On diltiazem for HR control; PO diltiazem when cleared by swallowing team (to see her again today), and then titrate off IV drip. Digoxin loading has aided in controlling HR; started daily dose. Keep digoxin level 0.5-1.0 (level pending today). On apixaban for anticoagulation. ECHO: unable to assess LVEF; repeat when pt able to turn on left side for better windows (or get MUGA).If LVEF is significantly reduced, change diltiazem to beta nico (appears to tolerate lopressor IVP prn presently). Code(s): I48.92 - UNSPECIFIED ATRIAL FLUTTER Qualifiers: Atrial flutter type: unspecified Qualified Code(s): I48.92 - Unspecified atrial flutter (2) Morbid obesity Code(s): E66.01 - MORBID (SEVERE) OBESITY DUE TO EXCESS CALORIES (3) HTN (hypertension) Assessment/Plan: On diltiazem (start PO when cleared by swallowing team0. F/u ECHO for LVEF, wall thickness, chamber sizes, valve status when able to position pt for better windows.. Consider MUGA if unable to ottain LVEF from ECHO. Code(s): I10 - ESSENTIAL (PRIMARY) HYPERTENSION (4) Diabetes Code(s): E11.9 - TYPE 2 DIABETES MELLITUS WITHOUT COMPLICATIONS (5) [place] cardiac risk >20% in next 10 years Assessment/Plan: TNI negative x 2. BP and glucose control. Keep LDL cholesterol < 70 mg/dL. Smoking cessation. Dietary consult; weight loss. Exercise will be important in the future. Coronary artery evaluation when stable (stress MIBI and/or coronary angiogram). Code(s): Z91.89 - OTH PERSONAL RISK FACTORS, NOT ELSEWHERE CLASSIFIED (6) Alcoholism Assessment/Plan: Past likely "withdrawal" period; off detox protocol. Code(s): F10.20 - ALCOHOL DEPENDENCE, UNCOMPLICATED (7) Cellulitis Assessment/Plan: chronic erythema; now off antibiotics. Code(s): L03.90 - CELLULITIS, UNSPECIFIED (8) Ascites Code(s): R18.8 - OTHER ASCITES (9) Interstitial lung disease Assessment/Plan: Moderate pulmonary HTN and RV hypokinesis. R/o sarcoid. R/o sleep apnea. Code(s): J84.9 - INTERSTITIAL PULMONARY DISEASE, UNSPECIFIED (10) CHF (congestive heart failure) Assessment/Plan: Elevated BNP. F/u BUn/Cr, electrolytes, daily weight, IS and Os,. ECHO repeat for LVEF when pt better able to cooperate (and move on left side); otherwise, consder MUGA for LVEF. Control of AF/flutter HR presently with diltiazem and digoxin. Code(s): I50.9 - HEART FAILURE, UNSPECIFIED (11) Renal dysfunction Assessment/Plan: BUN/Cr 120/2.0);deteriorating renal status; nephology w/u in progress. If biopsy is needed, ASA will be held. Code(s): N28.9 - DISORDER OF KIDNEY AND URETER, UNSPECIFIED (12) Respiratory failure Assessment/Plan: ISLD. Worsening respiratory status; will require re-intubation. Code(s): J96.90 - RESPIRATORY FAILURE, UNSP, UNSP W HYPOXIA OR HYPERCAPNIA Assessment/Plan CCU time spent: 35 minutes.
[2018-12-06] MEDS: THIAMINE HCL 200 MG/2 ML VIAL IVPB SCH ×4 (04:45→22:30)
[2018-12-06 05:53] LABS: BASO % 0.4 % (0-2.0); EOS % 0.1 % (0-4.5); HEMOGLOBIN 13.7 GM/dL (10.7-15.3); LYMPH % 3.7 % (8-40); MCH 31.9 pg (25.7-33.7); MCHC 30.4 g/dl (32.0-36.0); MEAN CELL VOLUME 104.9 fl (80-96); MEAN PLT VOLUME 10.6 fl (7.5-11.1); MONO % 4.8 % (3.8-10.2); PLATELET COUNT 103 K/MM3 (134-434); RBC 4.29 M/mm3 (3.60-5.2); RDW 15.7 % (11.6-15.6); WHITE BLOOD COUNT 12.1 K/mm3 (4.0-10.0)
[2018-12-06] MEDS: INSULIN SLIDING SCALE (NOVOLOG) 1 VIAL SQ SCH ×4 (06:27→22:41)
[2018-12-06 06:40] LABS: ALBUMIN 2.7 g/dl (3.4-5.0); ALK PHOS 84 U/L (45-117); ANION GAP 1 MMOL/L (8-16); BILIRUBIN,TOTAL 0.9 mg/dL (0.2-1); BLOOD UREA NITROGEN 104 mg/dL (7-18); CALCIUM 8.9 mg/dL (8.5-10.1); CHLORIDE 118 mmol/L (98-107); CO2 42 mmol/L (21-32); CREATININE 1.7 mg/dL (0.55-1.3); GLUCOSE,RANDOM 268 mg/dL (74-106); MAGNESIUM 2.9 mg/dL (1.8-2.4); POTASSIUM 4.5 mmol/L (3.5-5.1); SGOT/AST 14 U/L (15-37); SGPT/ALT 23 U/L (13-61); TOT PROT 5.7 g/dl (6.4-8.2)
[2018-12-06 07:06] LABS: SODIUM 161 mmol/L (136-145)
[2018-12-06] MEDS: MULTIVITAMINS (DAILY MVI) TABLET (FP) PO SCH (09:11)
[2018-12-06] MEDS: PANTOPRAZOLE SODIUM 40 MG VIAL IVPUSH SCH ×2 (09:11→22:29)
[2018-12-06] MEDS: GABAPENTIN 100 MG CAPSULE (FP) PO SCH (09:12)
[2018-12-06] MEDS: APIXABAN 5 MG TABLET PO SCH ×2 (09:12→22:29)
[2018-12-06] MEDS: DIGOXIN 0.5 MG/2 ML AMPUL IVPUSH SCH (09:12)
[2018-12-06] MEDS: BUDESONIDE/FORMETEROL FUMARATE 160/4.5 mcg INHALER IH SCH (09:12)
[2018-12-06] MEDS: CYANOCOBALAMIN (VITAMIN B-12) 100 MCG TABLET PO SCH (09:12)
[2018-12-06] MEDS: FOLIC ACID 1 MG TABLET (FP) PO SCH (09:12)
[2018-12-06] MEDS: methylPREDNISolone NA SUCC 40 MG/1 ML VIAL IVPUSH SCH (09:12)
[2018-12-06 09:51] LABS: ARTERIAL BLD GAS O2 SATURATION 93.8 % (90-98.9); ARTERIAL BLOOD GAS BASE EXCESS 12.3 meq/l (-2-2); ARTERIAL BLOOD GAS PO2 76.3 mmHg (80-100); ARTERIAL BLOOD GAS pH 7.39 (7.35-7.45)
[2018-12-06 09:54] LABS: ALLENS TEST POSITIVE
[2018-12-06 10:00] LABS: ARTERIAL BLOOD GAS PCO2 67.8 mmHg (35-45)
--- NOTE | 2018-12-06 10:02 | PN ---
Teaching Attending Note Name of Resident: Yovany Jacobo ATTENDING PHYSICIAN STATEMENT I saw and evaluated the patient. I reviewed the resident's note and discussed the case with the resident. I agree with the resident's findings and plan as documented. SUBJECTIVE: Patient seen and examined in the ICU. Intubated and sedated on AC Mode of vent , 60% FiO2, PEEP 8. No pressors. CXR: ETT in place / no gross change in bilateral airspace disease OBJECTIVE: Intake & Output 12/03/18 12/04/18 12/05/18 12/06/18 23:59 23:59 23:59 23:59 Intake Total 572 351 3758 1520 Output Total 3000 1200 4050 800 Balance -9555 -033 -8036 720 Weight 264 lb 6 oz 255 lb 15.307 oz 255 lb 8 oz 255 lb 9.6 oz Last Vital Signs Temp Pulse Resp BP Pulse Ox 98.6 F 47 L 18 129/57 L 99 12/06/18 06:00 12/06/18 09:12 12/06/18 09:30 12/06/18 08:00 12/05/18 20:34 Active Medications Apixaban (Eliquis -) 5 mg PO BID [facility] Last Admin: 12/06/18 09:12 Dose: 5 mg Budesonide/Formoterol Fumarate (Symbicort 160/4.5mcg -) 1 puff IH DAILY [facility] Last Admin: 12/06/18 09:12 Dose: Not Given Cyanocobalamin (Vitamin B12 -) 100 mcg PO DAILY [facility] Last Admin: 12/06/18 09:12 Dose: 100 mcg Digoxin (Lanoxin Injection -) 0.125 mg IVPUSH DAILY [facility] Last Admin: 12/06/18 09:12 Dose: Not Given Folic Acid (Folic Acid -) 1 mg PO DAILY [facility] Last Admin: 12/06/18 09:12 Dose: 1 mg Gabapentin (Neurontin -) 100 mg PO DAILY [facility] Last Admin: 12/06/18 09:12 Dose: 100 mg Diltiazem HCl 125 mg/ Sodium (Chloride) 125 mls @ 7 mls/hr IVPB TITR [facility]; Protocol Last Admin: 12/05/18 14:15 Dose: Not Given Fentanyl 500 mcg/ Dextrose 100 mls @ 10 mls/hr IVPB TITR [facility]; Protocol Last Admin: 12/05/18 13:33 Dose: 50 mcg/hr, 10 mls/hr Propofol (Diprivan -) 1,000,000 mcg in 100 mls @ 6.954 mls/hr IVPB TITR [facility]; Protocol Last Titration: 12/06/18 06:29 Dose: 15 mcg/kg/min, 10.43 mls/hr Insulin Aspart (Novolog Vial Sliding Scale -) 1 vial SQ ACHS [facility]; Protocol Last Admin: 12/06/18 06:27 Dose: 8 units Insulin Detemir (Levemir Vial) 10 units SQ HS [facility] Last Admin: 12/05/18 22:21 Dose: 10 units Methylprednisolone Sodium Succinate (Solu-Medrol -) 80 mg IVPUSH DAILY [facility] Last Admin: 12/06/18 09:12 Dose: 80 mg Metoprolol Tartrate (Lopressor Injection -) 5 mg IVPUSH Q4H PRN PRN Reason: HR >120 Last Admin: 12/02/18 06:06 Dose: 5 mg Multivitamins/Minerals/Vitamin C (Tab-A-Vit -) 1 tab PO DAILY [facility] Last Admin: 12/06/18 09:11 Dose: 1 tab Pantoprazole Sodium (Protonix Iv) 40 mg IVPUSH BID [facility] Last Admin: 12/06/18 09:11 Dose: 40 mg Saliva Substitute (Mouthkote Solution -) 1 applic MM Q2H PRN PRN Reason: COUGH Last Admin: 12/05/18 07:08 Dose: 1 applic Thiamine HCl (Vitamin B1 Injection -) 500 mg IVPB TID [facility] Last Admin: 12/06/18 05:21 Dose: 500 mg Gen: Intubated and sedated Heart: RRR Lung: intubated, bibasilar rhonchi, distant breath sounds Abd: soft, nontender Ext: + edema [employer]: Sedated Laboratory Results - last 24 hr 12/01/18 12/05/18 12/05/18 10:17 05:18 05:30 WBC RBC Hgb Hct MCV MCH MCHC RDW Plt Count MPV Absolute Neuts (auto) Neutrophils % Neutrophils % (Manual) 94.0 H Band Neutrophils % 2.0 Lymphocytes % Lymphocytes % (Manual) 0.0 L Monocytes % Monocytes % (Manual) 3 L D Eosinophils % Eosinophils % (Manual) 0.0 Basophils % Basophils % (Manual) 0.0 Myelocytes % (Man) 0 Promyelocytes % (Man) 0 Blast Cells % (Manual) 0 Nucleated RBC % Metamyelocytes 0 Hypochromia 0 Platelet Estimate Decreased Platelet Comment Present Polychromasia 1+ Poikilocytosis 1+ Anisocytosis 2+ Microcytosis 1+ Macrocytosis 0 Spherocytes 1+ Tear Drop Cells 1+ Ovalocytes 1+ Stomatocytes 1+ Anticoagulation Therapy Puncture Site ABG pH ABG pCO2 at Pt Temp ABG pO2 at Pt Temp ABG HCO3 ABG O2 Sat (Measured) ABG O2 Content ABG Base Excess Mendoza Test O2 Delivery Device Oxygen Flow Rate Vent Mode Vent Rate Mechanical Rate Pressure Support Vent Sodium Potassium Chloride Carbon Dioxide Anion Gap BUN Creatinine Creat Clearance w eGFR POC Glucometer 194.44141 Random Glucose Calcium Phosphorus Magnesium Total Bilirubin AST ALT Alkaline Phosphatase Total Protein Albumin Digoxin HCV Quantitation Hcv not detected HCV RNA log copies/mL TN 12/05/18 12/05/18 12/05/18 09:00 12:47 18:00 WBC RBC Hgb Hct MCV MCH MCHC RDW Plt Count MPV Absolute Neuts (auto) Neutrophils % Neutrophils % (Manual) Band Neutrophils % Lymphocytes % Lymphocytes % (Manual) Monocytes % Monocytes % (Manual) Eosinophils % Eosinophils % (Manual) Basophils % Basophils % (Manual) Myelocytes % (Man) Promyelocytes % (Man) Blast Cells % (Manual) Nucleated RBC % Metamyelocytes Hypochromia Platelet Estimate Platelet Comment Polychromasia Poikilocytosis Anisocytosis Microcytosis Macrocytosis Spherocytes Tear Drop Cells Ovalocytes Stomatocytes Anticoagulation Therapy No Result Required. Puncture Site Right radial ABG pH 7.44 ABG pCO2 at Pt Temp 60.9 H* ABG pO2 at Pt Temp 99.4 D ABG HCO3 40.3 H* ABG O2 Sat (Measured) 97.7 ABG O2 Content 18.4 ABG Base Excess 13.4 H Mendoza Test Positive O2 Delivery Device Mech vent Oxygen Flow Rate 80% o2 Vent Mode A/c Vent Rate No Result Required. Mechanical Rate No Result Required. Pressure Support Vent No Result Required. Sodium 164 H* Potassium 4.5 Chloride 119 H Carbon Dioxide 43 H Anion Gap 2 L BUN 120 H* Creatinine 2.0 H Creat Clearance w eGFR 25.96 POC Glucometer 230.37552 Random Glucose 195 H Calcium 9.2 Phosphorus Magnesium Total Bilirubin AST ALT Alkaline Phosphatase Total Protein Albumin Digoxin 1.59 HCV Quantitation HCV RNA log copies/mL 12/05/18 12/05/18 12/06/18 18:12 21:30 05:15 WBC 12.1 H RBC 4.29 Hgb 13.7 Hct 45.0 MCV 104.9 H MCH 31.9 MCHC 30.4 L RDW 15.7 H Plt Count 103 L MPV 10.6 Absolute Neuts (auto) 11.0 H Neutrophils % 91.0 H Neutrophils % (Manual) Band Neutrophils % Lymphocytes % 3.7 L D Lymphocytes % (Manual) Monocytes % 4.8 Monocytes % (Manual) Eosinophils % 0.1 D Eosinophils % (Manual) Basophils % 0.4 D Basophils % (Manual) Myelocytes % (Man) Promyelocytes % (Man) Blast Cells % (Manual) Nucleated RBC % 0 Metamyelocytes Hypochromia Platelet Estimate Platelet Comment Polychromasia Poikilocytosis Anisocytosis Microcytosis Macrocytosis Spherocytes Tear Drop Cells Ovalocytes Stomatocytes Anticoagulation Therapy Puncture Site ABG pH ABG pCO2 at Pt Temp ABG pO2 at Pt Temp ABG HCO3 ABG O2 Sat (Measured) ABG O2 Content ABG Base Excess Mendoza Test O2 Delivery Device Oxygen Flow Rate Vent Mode Vent Rate Mechanical Rate Pressure Support Vent Sodium Potassium Chloride Carbon Dioxide Anion Gap BUN Creatinine Creat Clearance w eGFR POC Glucometer 254.08485 283.75495 Random Glucose Calcium Phosphorus Magnesium Total Bilirubin AST ALT Alkaline Phosphatase Total Protein Albumin Digoxin HCV Quantitation HCV RNA log copies/mL 12/06/18 05:15 WBC RBC Hgb Hct MCV MCH MCHC RDW Plt Count MPV Absolute Neuts (auto) Neutrophils % Neutrophils % (Manual) Band Neutrophils % Lymphocytes % Lymphocytes % (Manual) Monocytes % Monocytes % (Manual) Eosinophils % Eosinophils % (Manual) Basophils % Basophils % (Manual) Myelocytes % (Man) Promyelocytes % (Man) Blast Cells % (Manual) Nucleated RBC % Metamyelocytes Hypochromia Platelet Estimate Platelet Comment Polychromasia Poikilocytosis Anisocytosis Microcytosis Macrocytosis Spherocytes Tear Drop Cells Ovalocytes Stomatocytes Anticoagulation Therapy Puncture Site ABG pH ABG pCO2 at Pt Temp ABG pO2 at Pt Temp ABG HCO3 ABG O2 Sat (Measured) ABG O2 Content ABG Base Excess Mendoza Test O2 Delivery Device Oxygen Flow Rate Vent Mode Vent Rate Mechanical Rate Pressure Support Vent Sodium 161 H* Potassium 4.5 Chloride 118 H Carbon Dioxide 42 H Anion Gap 1 L BUN 104 H Creatinine 1.7 H Creat Clearance w eGFR 31.32 POC Glucometer Random Glucose 268 H Calcium 8.9 Phosphorus 3.0 Magnesium 2.9 H Total Bilirubin 0.9 AST 14 L ALT 23 Alkaline Phosphatase 84 Total Protein 5.7 L Albumin 2.7 L Digoxin HCV Quantitation HCV RNA log copies/mL ASSESSMENT AND PLAN: Acute on Chronic Hypoxic and Hypercapneic Respiratory Failure Acute COPD Exacerbation Morbid Obesity Obstructive Sleep Apnea/Obesity Hypoventilation Syndrome Suspect Right Heart Failure Volume Overload Mediastinal Lymphadenopathy Atrial Flutter with RVR Cellulitis Acute Kidney Injury Alcohol Abuse - AC Mode of vent - Inhaled bronchodilators - Lasix daily - Off ABX - Digoxin - Glycemic control - Daily Medrol - Monitor urine output, creatinine - Rate control - Enteral feeds - Eliquis - ICU monitoring Dr Dixon Critical care time spent in reviewing chart, evaluating patient and formulating plan 35 min
--- NOTE | 2018-12-06 10:34 | PN ---
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 (short form) - Note 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: Subjective: Patient reintubated for airway protection on 12/05 Dilt gtt turned off due to bradycardia Objective: Vital Signs 12/06/18 12/06/18 12/06/18 03:30 04:00 06:00 Temperature 98.6 F Pulse Rate 48 L 46 L Respiratory 18 18 18 Rate Blood Pressure 140/70 139/61 12/06/18 12/06/18 12/06/18 06:11 08:00 08:15 Temperature Pulse Rate 50 L Respiratory 18 18 18 Rate Blood Pressure 129/57 L 12/06/18 12/06/18 09:12 09:30 Temperature Pulse Rate 47 L Respiratory 18 Rate Blood Pressure Gen: intubated/sedated Cardiac: S1/S2, no murmurs appreciated Pulm: clear breath sounds in anterior lung burgess Ext: WWP. 2+ edema bilaterally. Abnormal Lab Results 12/05/18 12/05/18 12/05/18 05:30 09:00 18:00 WBC MCV MCHC RDW Plt Count Absolute Neuts (auto) Neutrophils % Neutrophils % (Manual) 94.0 H Lymphocytes % Lymphocytes % (Manual) 0.0 L Monocytes % (Manual) 3 L D ABG pCO2 at Pt Temp 60.9 H* ABG pO2 at Pt Temp ABG HCO3 40.3 H* ABG Base Excess 13.4 H Sodium 164 H* Chloride 119 H Carbon Dioxide 43 H Anion Gap 2 L BUN 120 H* Creatinine 2.0 H Random Glucose 195 H Magnesium AST Total Protein Albumin 12/06/18 12/06/18 12/06/18 05:15 05:15 09:36 WBC 12.1 H MCV 104.9 H MCHC 30.4 L RDW 15.7 H Plt Count 103 L Absolute Neuts (auto) 11.0 H Neutrophils % 91.0 H Neutrophils % (Manual) Lymphocytes % 3.7 L D Lymphocytes % (Manual) Monocytes % (Manual) ABG pCO2 at Pt Temp 67.8 H* ABG pO2 at Pt Temp 76.3 L D ABG HCO3 40.2 H* ABG Base Excess 12.3 H Sodium 161 H* Chloride 118 H Carbon Dioxide 42 H Anion Gap 1 L BUN 104 H Creatinine 1.7 H Random Glucose 268 H Magnesium 2.9 H AST 14 L Total Protein 5.7 L Albumin 2.7 L Active Medications Albuterol/Ipratropium (Duoneb -) 1 amp NEB RQID [facility] Last Admin: 11/29/18 08:12 Dose: 1 amp Apixaban (Eliquis -) 5 mg PO BID [facility] Last Admin: 11/29/18 09:35 Dose: 5 mg Aspirin (Asa -) 81 mg PO DAILY [facility] Last Admin: 11/29/18 09:34 Dose: 81 mg Budesonide/Formoterol Fumarate (Symbicort 160/4.5mcg -) 1 puff IH DAILY [facility] Last Admin: 11/29/18 09:36 Dose: Not Given Diltiazem HCl (Cardizem -) 30 mg PO Q6HPO [facility] Last Admin: 11/29/18 06:05 Dose: 30 mg Gabapentin (Neurontin -) 100 mg PO DAILY [facility] Last Admin: 11/29/18 09:35 Dose: 100 mg Propofol (Diprivan -) 1,000,000 mcg in 100 mls @ 4.011 mls/hr IVPB TITR [facility]; Protocol Last Titration: 11/28/18 21:27 Dose: 20 mcg/kg/min, 16.044 mls/hr Fentanyl 500 mcg/ Dextrose 100 mls @ 10 mls/hr IVPB TITR [facility]; Protocol Last Admin: 11/29/18 10:15 Dose: 50 mcg/hr, 10 mls/hr Insulin Aspart (Novolog Vial Sliding Scale -) 1 vial SQ ACHS [facility]; Protocol Last Admin: 11/29/18 06:05 Dose: 2 units Insulin Detemir (Levemir Vial) 10 units SQ HS [facility] Last Admin: 11/28/18 21:38 Dose: 10 units Lorazepam (Ativan Injection -) 2 mg IVPUSH Q4H PRN PRN Reason: Anxiety or agitation Methylprednisolone Sodium Succinate (Solu-Medrol -) 40 mg IVPUSH DAILY [facility] Last Admin: 11/29/18 09:36 Dose: 40 mg Metoprolol Tartrate (Lopressor Injection -) 5 mg IVPUSH Q4H PRN PRN Reason: HR >120 Last Admin: 11/29/18 02:10 Dose: 5 mg Multivitamins/Minerals/Vitamin C (Tab-A-Vit -) 1 tab PO DAILY [facility] Last Admin: 11/29/18 09:34 Dose: 1 tab Pantoprazole Sodium (Protonix -) 20 mg PO DAILY [facility] Last Admin: 11/29/18 09:35 Dose: 20 mg Thiamine HCl (Vitamin B1 Injection -) 200 mg IVPB DAILY [facility] Last Admin: 11/29/18 09:36 Dose: 200 mg A/P: 53 YOF with h/o COPD , chronic alcoholism (several glasses of rum daily), DM, HTN, hyperlipidemia, metabolic syndrome admitted with respiratory failure secondary to COPD exacerbation currently intubated/sedated hospital course complicated by atrial flutter with rapid ventricular response now with spontaneous conversion to sinus bradycardia, off dilt gtt on digoxin. #Atrial flutter; currently NSR Treatment: --continue digoxin --hold off on dilt given bradycardia AC: continue apixaban --continue to monitor on telemetry #Metabolic abnormalities, hypernatremia (Na 161); please ensure renal team closely following Management of COPD exacerbation, alcohol withdrawal and renal dysfunction per primary team. We will continue to follow. Bird Savage MD
--- NOTE | 2018-12-06 11:07 | PN ---
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 (short form) - Note 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: pt seen/ examined in icu chart reviewed Re intubated yesterday Aunt at bedside Sedated but opens eyes Vital Signs Temp 98.6 F 12/06/18 10:00 Pulse 49 L 12/06/18 10:00 Resp 18 12/06/18 10:00 BP 126/68 12/06/18 10:00 Pulse Ox 96 12/06/18 10:00 Intake & Output 12/05/18 12/05/18 12/06/18 11:59 23:59 11:59 Intake Total 49 1625 1520 Output Total 1450 2600 800 Balance -1401 -975 720 Weight 255 lb 8 oz 255 lb 9.6 oz Intake: IV 49 735 240 Cardizem Injection - 125 49 50 mg In Normal Saline - 100 ml @ 7 MG/HR 7 mls/hr IVPB TITR [facility] Rx#: [id number] D5w - 1,000 ml @ 75 mls/ 600 hr IV ONCE ONE Rx#: [id number] DIPRIVAN - 1,000,000 mcg 60 120 In 100 ml @ 10 MCG/KG/MIN 6.954 mls/hr IVPB TITR [facility] Rx#:[id number] Sublimaze Injection - 500 25 120 Mcg In D5w - 90 ml @ 50 MCG/HR 10 mls/hr IVPB TITR [facility] Rx#:[id number] IVPB 300 200 Tube Feeding 50 480 Tube Irrigant 540 600 Output: Urine 1450 2600 800 Bills 1450 2600 800 Other: Voiding Method Indwelling Catheter Indwelling Catheter Indwelling Catheter Bowel Movement No Body Mass Index (BMI) 38.7 Weight Measurement Method [facility] in [facility] Active Medications Apixaban (Eliquis -) 5 mg PO BID [facility] Last Admin: 12/06/18 09:12 Dose: 5 mg Budesonide/Formoterol Fumarate (Symbicort 160/4.5mcg -) 1 puff IH DAILY [facility] Last Admin: 12/06/18 09:12 Dose: Not Given Cyanocobalamin (Vitamin B12 -) 100 mcg PO DAILY [facility] Last Admin: 12/06/18 09:12 Dose: 100 mcg Digoxin (Lanoxin Injection -) 0.125 mg IVPUSH DAILY [facility] Last Admin: 12/06/18 09:12 Dose: Not Given Folic Acid (Folic Acid -) 1 mg PO DAILY [facility] Last Admin: 12/06/18 09:12 Dose: 1 mg Gabapentin (Neurontin -) 100 mg PO DAILY [facility] Last Admin: 12/06/18 09:12 Dose: 100 mg Diltiazem HCl 125 mg/ Sodium (Chloride) 125 mls @ 7 mls/hr IVPB TITR [facility]; Protocol Last Admin: 12/05/18 14:15 Dose: Not Given Fentanyl 500 mcg/ Dextrose 100 mls @ 10 mls/hr IVPB TITR [facility]; Protocol Last Admin: 12/05/18 13:33 Dose: 50 mcg/hr, 10 mls/hr Propofol (Diprivan -) 1,000,000 mcg in 100 mls @ 6.954 mls/hr IVPB TITR [facility]; Protocol Last Titration: 12/06/18 06:29 Dose: 15 mcg/kg/min, 10.43 mls/hr Insulin Aspart (Novolog Vial Sliding Scale -) 1 vial SQ ACHS [facility]; Protocol Last Admin: 12/06/18 06:27 Dose: 8 units Insulin Detemir (Levemir Vial) 10 units SQ HS [facility] Last Admin: 12/05/18 22:21 Dose: 10 units Methylprednisolone Sodium Succinate (Solu-Medrol -) 80 mg IVPUSH DAILY [facility] Last Admin: 12/06/18 09:12 Dose: 80 mg Metoprolol Tartrate (Lopressor Injection -) 5 mg IVPUSH Q4H PRN PRN Reason: HR >120 Last Admin: 12/02/18 06:06 Dose: 5 mg Multivitamins/Minerals/Vitamin C (Tab-A-Vit -) 1 tab PO DAILY [facility] Last Admin: 12/06/18 09:11 Dose: 1 tab Pantoprazole Sodium (Protonix Iv) 40 mg IVPUSH BID [facility] Last Admin: 12/06/18 09:11 Dose: 40 mg Saliva Substitute (Mouthkote Solution -) 1 applic MM Q2H PRN PRN Reason: COUGH Last Admin: 12/05/18 07:08 Dose: 1 applic Thiamine HCl (Vitamin B1 Injection -) 500 mg IVPB TID [facility] Last Admin: 12/06/18 05:21 Dose: 500 mg CBC, BMP 12/06/18 05:15 12/06/18 05:15 ABG Results ABG pH 7.39 (7.35-7.45) 12/06/18 09:36 ABG pCO2 at Pt Temp 67.8 mmHg (35-45) H* 12/06/18 09:36 ABG pO2 at Pt Temp 76.3 mmHg (80-100) L D 12/06/18 09:36 ABG HCO3 40.2 meq/L (22-26) H* 12/06/18 09:36 ABG O2 Sat (Measured) 93.8 % (90-98.9) 12/06/18 09:36 ABG O2 Content 18.2 % vol (15-22) 12/06/18 09:36 ABG Base Excess 12.3 meq/l (-2-2) H 12/06/18 09:36 cxr -- no change . Digoxin Level --ok Physical Exam Drowsy/ arousable Intubated lungs- Bilateral breath sounds anteriorly cvs- s1, s2 rrr abd - soft / obese ext- + edema a/p Respiratory failure- Intubated again Hypernatremia Diabetes ETOH abuse Renal failure continue present care meds reviewed ngt feeding monitor bgm off abx condition critical overall prognosis gaurded Discussed with Aunt again who is at bedside discussed with icu team/ nursing staff also cc time 30 min will follow Problem List - Problems (1) Acute respiratory failure with hypoxia and hypercapnia Code(s): J96.01 - ACUTE RESPIRATORY FAILURE WITH HYPOXIA; J96.02 - ACUTE RESPIRATORY FAILURE WITH HYPERCAPNIA (2) Atrial flutter Code(s): I48.92 - UNSPECIFIED ATRIAL FLUTTER Qualifiers: Atrial flutter type: unspecified Qualified Code(s): I48.92 - Unspecified atrial flutter (3) Bilateral lower extremity edema Code(s): R60.0 - LOCALIZED EDEMA (4) Diabetes Code(s): E11.9 - TYPE 2 DIABETES MELLITUS WITHOUT COMPLICATIONS (5) Elevated LFTs Code(s): R94.5 - ABNORMAL RESULTS OF LIVER FUNCTION STUDIES (6) Hyperlipidemia Code(s): E78.5 - HYPERLIPIDEMIA, UNSPECIFIED (7) Morbid obesity Code(s): E66.01 - MORBID (SEVERE) OBESITY DUE TO EXCESS CALORIES (8) Acute renal failure Code(s): N17.9 - ACUTE KIDNEY FAILURE, UNSPECIFIED (9) Pulmonary hypertension Code(s): I27.20 - PULMONARY HYPERTENSION, UNSPECIFIED
--- NOTE | 2018-12-06 11:25 | PN ---
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 (short form) - Note 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: Patient seen and examined at bedside intubated yesterday NG tube placed and free water being given Tube feeds started hypernatremia improving Last Vital Signs Temp Pulse Resp BP Pulse Ox 98.6 F 49 L 18 126/68 96 12/06/18 10:00 12/06/18 10:00 12/06/18 10:00 12/06/18 10:00 12/06/18 10:00 PE: Gen:NAD lying in bed intubated and sedated Intubated and sedated Heart: RRR S1 S2 no murmur Lung: Rhonchi at bases. intubated. bronchial breath sounds Abd: soft, nontender Trace non pitting edema 12/06/18 12/06/18 05:15 05:15 WBC 12.1 H RBC 4.29 Hgb 13.7 Hct 45.0 MCV 104.9 H MCHC 30.4 L RDW 15.7 H Plt Count 103 L Neutrophils % 91.0 H Lymphocytes % 3.7 L D Monocytes % 4.8 Eosinophils % 0.1 D Basophils % 0.4 D Sodium 161 H* Potassium 4.5 Chloride 118 H Carbon Dioxide 42 H Anion Gap 1 L BUN 104 H Creatinine 1.7 H 11/24/18 04:00 Blood Culture - Final Blood - Peripheral Venous NO GROWTH AFTER 5 DAYS INCUBATION 11/24/18 04:00 Blood Culture - Final Blood - Peripheral Venous NO GROWTH AFTER 5 DAYS INCUBATION 11/24/18 12:50 Urine Culture - Final Urine - Urine Clean Catch NO GROWTH OBTAINED 11/24/18 12:25 Legionella Antigen - Final Urine For Antigen Detection Streptococcus pneumoniae Antigen (M - Final 53F with multiple medical problems including COPD, alcohol abuse, TRINH, obesity, HTN, HLD, in respiratory failure. Neuro intubated and sedated pain control CV Cardiology consult Dr Jefferson appreciated [id number] eliquis and digoxin Metroprolol PRN Cardizem gtt stopped yesterday HTN hold BP meds for npow due to hypotension Hypervolemia w/ pulmonary congestion hold lasix today Pulm Acute hypercapnic respiratory failure due to pulmonary edema symbicort Duonebs ventilatory support ILD new diagnosed on CT continue solu-medrol CT chest when stable GI Nutrition continue tube feeds continue thiamine no BM- will start bowel regimen GI Ppx Protonix PITO continues to improve Cr 1.7 today Hyperkalemia Resolved Hypernatremia Heme DVT Ppx: scds, eliquis ID BLE Cellulitis Hold ABx Endo DM fingersticks for BGM ACHS ISS Morbid obesity LTD Bills- 11/25/2018 ETT- 12/05/2018 OGT- 12/05/2018 PIV Dispo: Patient continues to require ICU level of care.
[2018-12-06] MEDS: PROPOFOL 1,000,000 MCG/100 ML VIAL IVPB SCH (11:45)
[2018-12-06] MEDS ORDERED: DOCUSATE SODIUM 100 MG CAPSULE (FP) PO ONE (12:07)
[2018-12-06] MEDS ORDERED: DOCUSATE NA 100 MG/10 ML UNIT-DOSE CUPS PO ONE (12:20)
[2018-12-06 12:28] LABS: ANISOCYTOSIS 0; MACROCYTOSIS 0; OVALOCYTE 2+; PLATELET ESTIMATE DECREASED
[2018-12-06] MEDS: FENTANYL INJECTION 500 MCG in DEXTROSE 5%-WATER - 90 ML IVPB SCH (12:45)
[2018-12-06] MEDS: ALBUTEROL SO4 2.5/IPRATROPIUM 0.5 INH SOL 3 ML VIAL.NEB. NEB SCH ×2 (14:05→20:00)
[2018-12-06] MEDS ORDERED: fentaNYL CITRATE 250 MCG/5 ML VIAL ONE ×2 (14:59→22:26)
--- NOTE | 2018-12-06 15:00 | PN ---
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 (short form) - Note 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: Problems 1. PITO 2. hyperkalemia 3. a-flutter 4. resp failure requiring bipap 5. DM 6. HTN 7. active smoker 8. etoh abuse 9. obesity 10. interstitial lung disease on CT scan 11. resp acidosis 12. COPD 13. positive pr3 14. hypernatremia Current Medications Albuterol/Ipratropium (Duoneb -) 1 amp NEB RTID [facility] Last Admin: 12/06/18 14:05 Dose: 1 amp Apixaban (Eliquis -) 5 mg PO BID [facility] Last Admin: 12/06/18 09:12 Dose: 5 mg Budesonide/Formoterol Fumarate (Symbicort 160/4.5mcg -) 1 puff IH DAILY [facility] Last Admin: 12/06/18 09:12 Dose: Not Given Cyanocobalamin (Vitamin B12 -) 100 mcg PO DAILY [facility] Last Admin: 12/06/18 09:12 Dose: 100 mcg Digoxin (Lanoxin Injection -) 0.125 mg IVPUSH DAILY [facility] Last Admin: 12/06/18 09:12 Dose: Not Given Docusate Sodium (Colace Liquid -) 300 mg NGT [facility] Folic Acid (Folic Acid -) 1 mg PO DAILY [facility] Last Admin: 12/06/18 09:12 Dose: 1 mg Gabapentin (Neurontin -) 100 mg PO DAILY [facility] Last Admin: 12/06/18 09:12 Dose: 100 mg Fentanyl 500 mcg/ Dextrose 100 mls @ 10 mls/hr IVPB TITR [facility]; Protocol Last Admin: 12/06/18 12:45 Dose: 50 mcg/hr, 10 mls/hr Propofol (Diprivan -) 1,000,000 mcg in 100 mls @ 6.954 mls/hr IVPB TITR [facility]; Protocol Last Admin: 12/06/18 11:45 Dose: 15 mcg/kg/min, 10.43 mls/hr Insulin Aspart (Novolog Vial Sliding Scale -) 1 vial SQ ACHS [facility]; Protocol Last Admin: 12/06/18 11:56 Dose: 6 units Insulin Detemir (Levemir Vial) 10 units SQ HS [facility] Last Admin: 12/05/18 22:21 Dose: 10 units Methylprednisolone Sodium Succinate (Solu-Medrol -) 80 mg IVPUSH DAILY [facility] Last Admin: 12/06/18 09:12 Dose: 80 mg Metoprolol Tartrate (Lopressor Injection -) 5 mg IVPUSH Q4H PRN PRN Reason: HR >120 Last Admin: 12/02/18 06:06 Dose: 5 mg Multivitamins/Minerals/Vitamin C (Tab-A-Vit -) 1 tab PO DAILY [facility] Last Admin: 12/06/18 09:11 Dose: 1 tab Pantoprazole Sodium (Protonix Iv) 40 mg IVPUSH BID [facility] Last Admin: 12/06/18 09:11 Dose: 40 mg Saliva Substitute (Mouthkote Solution -) 1 applic MM Q2H PRN PRN Reason: COUGH Last Admin: 12/05/18 07:08 Dose: 1 applic Thiamine HCl (Vitamin B1 Injection -) 500 mg IVPB TID [facility] Last Admin: 12/06/18 14:29 Dose: 500 mg Last Vital Signs Temp Pulse Resp BP Pulse Ox 99.3 F 48 L 18 139/65 96 12/06/18 14:00 12/06/18 14:00 12/06/18 14:00 12/06/18 14:00 12/06/18 10:00 CBC, BMP 12/06/18 05:15 12/06/18 05:15 on vent Wheezing, vented sounds IMP hypernatremia improving resp failure/copd Plan- continue water replacement
[2018-12-06] MEDS ORDERED: DOCUSATE SODIUM 100 MG CAPSULE (FP) PO SCH (22:00)
[2018-12-06] MEDS: DOCUSATE NA 100 MG/10 ML UNIT-DOSE CUPS NGT SCH (22:29)
[2018-12-06] MEDS: INSULIN (LEVEMIR) 100 UNITS/ML UNITS SQ SCH (22:41)
[2018-12-07] MEDS: THIAMINE HCL 200 MG/2 ML VIAL IVPB SCH ×3 (06:01→22:26)
[2018-12-07] MEDS: INSULIN SLIDING SCALE (NOVOLOG) 1 VIAL SQ SCH ×4 (06:04→22:55)
[2018-12-07 06:07] LABS: BASO % 0.2 % (0-2.0); EOS % 0.5 % (0-4.5); HEMATOCRIT 45.9 % (32.4-45.2); LYMPH % 7.9 % (8-40); MCH 32.1 pg (25.7-33.7); MCHC 30.6 g/dl (32.0-36.0); MEAN CELL VOLUME 105.2 fl (80-96); MONO % 4.1 % (3.8-10.2); NEUT % 87.3 % (42.8-82.8); PLATELET COUNT 86 K/MM3 (134-434); RBC 4.36 M/mm3 (3.60-5.2); RDW 15.4 % (11.6-15.6); WHITE BLOOD COUNT 12.1 K/mm3 (4.0-10.0)
[2018-12-07 06:42] LABS: ALBUMIN 2.5 g/dl (3.4-5.0); ALK PHOS 101 U/L (45-117); ANION GAP 3 MMOL/L (8-16); BILIRUBIN,TOTAL 0.9 mg/dL (0.2-1); BLOOD UREA NITROGEN 91 mg/dL (7-18); CALCIUM 8.7 mg/dL (8.5-10.1); CHLORIDE 120 mmol/L (98-107); CO2 41 mmol/L (21-32); CREATININE 1.6 mg/dL (0.55-1.3); GLUCOSE,RANDOM 188 mg/dL (74-106); MAGNESIUM 2.5 mg/dL (1.8-2.4); PHOSPHOROUS 2.6 mg/dL (2.5-4.9); POTASSIUM 4.4 mmol/L (3.5-5.1); SGOT/AST 17 U/L (15-37); SGPT/ALT 29 U/L (13-61); TOT PROT 5.4 g/dl (6.4-8.2)
[2018-12-07 06:47] LABS: SODIUM 164 mmol/L (136-145)
--- NOTE | 2018-12-07 07:39 | PN ---
Physical Exam: SUBJECTIVE: Patient seen and examined. intubated/sedated OBJECTIVE: Vital Signs Period Temp Pulse Resp BP Sys/Gregorio Pulse Ox Last 24 Hr 98.6 F-99.3 F 47-69 17-19 126-154/56-73 96-96 GENERAL: intubated. sedated HEAD: NC/AT EYES: PERRL, EOMI ENT: Moist mucous membranes. maxillary lip wound (hemostatic), ETT in place NECK: supple LUNGS: b/l coarse breath sounds throughout with good air entry. HEART: A-flutter, normal rate, no murmur appreciated ABDOMEN: Soft, protuberant, edematous, mild distended, normoactive bowel sounds BUE: B/l hand swelling, not likely cellulitis, sensation and ROM intact LOWER EXTREMITIES: 2+ pulses, warm, well-perfused NEUROLOGICAL: moves extremities spontaneously, opens eyes to verbal stimuli Active Medications Generic Name Dose Route Start Last Admin Trade Name Freq PRN Reason Stop Dose Admin Albuterol/Ipratropium 1 amp 12/06/18 14:00 12/06/18 20:00 Duoneb - NEB 1 amp RTID [facility] Administration Apixaban 5 mg 11/24/18 10:00 12/06/18 22:29 Eliquis - PO 5 mg BID [facility] Administration Budesonide/Formoterol Fumarate 1 puff 11/24/18 10:00 12/06/18 09:12 Symbicort 160/4.5mcg - IH Not Given DAILY [facility] Cyanocobalamin 100 mcg 12/05/18 13:00 12/06/18 09:12 Vitamin B12 - PO 100 mcg DAILY [facility] Administration Digoxin 0.125 mg 12/02/18 12:15 12/06/18 09:12 Lanoxin Injection - IVPUSH Not Given DAILY [facility] Docusate Sodium 300 mg 12/06/18 22:00 12/06/18 22:29 Colace Liquid - NGT 300 mg HS [facility] Administration Folic Acid 1 mg 12/05/18 14:15 12/06/18 09:12 Folic Acid - PO 1 mg DAILY [facility] Administration Gabapentin 100 mg 11/24/18 10:00 12/06/18 09:12 Neurontin - PO 100 mg DAILY [facility] Administration Fentanyl 500 mcg/ Dextrose 100 mls @ 10 mls/hr 12/05/18 12:45 12/07/18 03:05 IVPB 50 mcg/hr TITR [facility] 10 mls/hr Titration Protocol 50 MCG/HR Propofol 1,000,000 mcg in 100 mls @ 6.954 mls/hr 12/05/18 12:45 12/07/18 03: 00 Diprivan - IVPB 15 mcg/kg/min TITR [facility] 10.43 mls/hr Titration Protocol 10 MCG/KG/MIN Insulin Aspart 1 vial 12/03/18 10:32 12/07/18 06:04 Novolog Vial Sliding Scale - SQ 6 units ACHS [facility] Administration Protocol Insulin Detemir 10 units 11/24/18 22:00 12/06/18 22:41 Levemir Vial SQ 10 units HS [facility] Administration Methylprednisolone Sodium Succinate 80 mg 12/05/18 10:00 12/06/18 09:12 Solu-Medrol - IVPUSH 80 mg DAILY [facility] Administration Metoprolol Tartrate 5 mg 11/28/18 21:33 12/02/18 06:06 Lopressor Injection - IVPUSH 5 mg Q4H PRN Administration HR >120 Multivitamins/Minerals/Vitamin C 1 tab 11/24/18 10:00 12/06/18 09:11 Tab-A-Vit - PO 1 tab DAILY [facility] Administration Pantoprazole Sodium 40 mg 12/02/18 22:00 12/06/18 22:29 Protonix Iv IVPUSH 40 mg BID [facility] Administration Saliva Substitute 1 applic 12/05/18 06:36 12/05/18 07:08 Mouthkote Solution - MM 1 applic Q2H PRN Administration COUGH Thiamine HCl 500 mg 12/05/18 22:30 12/07/18 06:01 Vitamin B1 Injection - IVPB 500 mg TID [facility] Administration ASSESSMENT/PLAN: The pt is a 53F with a PMH of COPD, acute/chronic EtOH abuse (several glasses of rum daily), long-term tobacco abuse, TRINH, morbid obesity, DM, HTN, hyperlipidemia, cellulites, metabolic syndrome who was transferred to ICU due to worsening respiratory failure 11/27 - Patient w/ worsening mentation and respiratory status throughout the morning. Worsening repeat ABG. Decision was made to intubate for hypercapnic/ hypoxic respiratory failure 11/28 - Vented, ABG improving 12/01 - Extubated to HFNC. OGT D/C'ed. 12/02 - +PR3, plan for kidney bx in 7d (ASA held) 12/03 - Methylprednisolone 12/04 - Trial high flow, swallow eval 12/05 - Intubated, OGT placed, TF started; CT chest w/o for eval of ILD 12/07 - Inc. free water flush Neuro ETOH abuse, dependence -Patient no longer likely to withdraw given length of time in hospital Tobacco abuse -Educated -Nicotine patch CV Cardiology Dr Ronny Santana-flutter -Apixaban -Lopressor IV push PRN -Digoxin HTN -Antihypertensives held 01/03 relative hypotension Hypervolemia w/ pulmonary congestion -Lasix 40mg IV PRN Pulm Acute hypercapnic respiratory failure due to pulmonary edema can Not R/O CHF vs copd exacerbation -Continue symbicort -Continue broncodilators -s/p intubation 11/27/2018 for acute decompensation --Extubated 12/01/2018 -Patient was on continuous BiPap, failed wean to HFNC --Intubated 12/05/2018 for hypercapnic respiratory failure ILD possible on initial CT -Methylprednisolone 80mg IV daily -F/u CT chest w/o evidence of ILD GI Nutrition -OGT placed 12/05/2018 -TF -Thiamine, folate B12 daily GI Ppx -Protonix PITO -Avoid nephrotoxic agents -Nephrology consulted -Improving Hyperkalemia -Resolved Hypernatremia -Will increase TF free water Heme DVT Ppx: scds, eliquis ID BLE Cellulitis -Not likely infectious in etiology -s/p Abx course -no further abx at this time Endo DM -BGM ACHS -ISS increased on 12/03 2/2 poor glycemic control Morbid obesity -Educated about low calories diet , losing weight , daily exercise 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 Visit type - Emergency Visit Emergency Visit: Yes ED Registration Date: 11/23/18 Care time: The patient presented to the Emergency Department on the above date and was hospitalized for further evaluation of their emergent condition. - New Patient This patient is new to me today: No - Critical Care Critical Care patient: Yes Total Critical Care Time (in minutes): 35 Critical Care Statement: The care of this patient involved high complexity decision making to prevent further life threatening deterioration of the patient 's condition and/or to evaluate & treat vital organ system(s) failure or risk of failure.
[2018-12-07 07:45] LABS: ARTERIAL BLD GAS O2 SATURATION 91.2 % (90-98.9); ARTERIAL BLOOD GAS BASE EXCESS 12.1 meq/l (-2-2); ARTERIAL BLOOD GAS PCO2 62.8 mmHg (35-45); ARTERIAL BLOOD GAS PO2 65.5 mmHg (80-100); ARTERIAL BLOOD GAS pH 7.42 (7.35-7.45)
[2018-12-07 07:46] LABS: ALLENS TEST POSITIVE
[2018-12-07] MEDS: ALBUTEROL SO4 2.5/IPRATROPIUM 0.5 INH SOL 3 ML VIAL.NEB. NEB SCH ×3 (08:30→20:52)
--- NOTE | 2018-12-07 10:17 | PN ---
Teaching Attending Note Name of Resident: Heriberto Urena ATTENDING PHYSICIAN STATEMENT I saw and evaluated the patient. I reviewed the resident's note and discussed the case with the resident. I agree with the resident's findings and plan as documented. SUBJECTIVE: Patient seen and examined in the ICU. Intubated and sedated on AC Mode of vent , 55% FiO2, PEEP 8. No pressors. CXR: ETT in place / no gross change in bilateral airspace disease CT chest: no gross indication of ILD / bilateral effusions/atelectasis OBJECTIVE: Intake & Output 12/04/18 12/05/18 12/06/18 12/07/18 23:59 23:59 23:59 23:59 Intake Total 495 1674 3256 1700 Output Total 1200 4050 2200 800 Balance -705 -2376 1056 900 Weight 255 lb 15.307 oz 255 lb 8 oz 255 lb 9.6 oz 250 lb 4 oz Last Vital Signs Temp Pulse Resp BP Pulse Ox 98.8 F 70 17 123/59 L 96 12/07/18 09:08 12/07/18 09:08 12/07/18 09:08 12/07/18 08:00 12/06/18 19:48 Active Medications Albuterol/Ipratropium (Duoneb -) 1 amp NEB RTID [facility] Last Admin: 12/07/18 08:30 Dose: 1 amp Apixaban (Eliquis -) 5 mg PO BID [facility] Last Admin: 12/06/18 22:29 Dose: 5 mg Budesonide/Formoterol Fumarate (Symbicort 160/4.5mcg -) 1 puff IH DAILY [facility] Last Admin: 12/06/18 09:12 Dose: Not Given Cyanocobalamin (Vitamin B12 -) 100 mcg PO DAILY [facility] Last Admin: 12/06/18 09:12 Dose: 100 mcg Digoxin (Lanoxin Injection -) 0.125 mg IVPUSH DAILY [facility] Last Admin: 12/06/18 09:12 Dose: Not Given Docusate Sodium (Colace Liquid -) 300 mg NGT HS [facility] Last Admin: 12/06/18 22:29 Dose: 300 mg Folic Acid (Folic Acid -) 1 mg PO DAILY [facility] Last Admin: 12/06/18 09:12 Dose: 1 mg Gabapentin (Neurontin -) 100 mg PO DAILY [facility] Last Admin: 12/06/18 09:12 Dose: 100 mg Fentanyl 500 mcg/ Dextrose 100 mls @ 10 mls/hr IVPB TITR [facility]; Protocol Last Titration: 12/07/18 03:05 Dose: 50 mcg/hr, 10 mls/hr Propofol (Diprivan -) 1,000,000 mcg in 100 mls @ 6.954 mls/hr IVPB TITR [facility]; Protocol Last Titration: 12/07/18 03:00 Dose: 15 mcg/kg/min, 10.43 mls/hr Insulin Aspart (Novolog Vial Sliding Scale -) 1 vial SQ ACHS [facility]; Protocol Last Admin: 12/07/18 06:04 Dose: 6 units Insulin Detemir (Levemir Vial) 10 units SQ HS [facility] Last Admin: 12/06/18 22:41 Dose: 10 units Methylprednisolone Sodium Succinate (Solu-Medrol -) 80 mg IVPUSH DAILY [facility] Last Admin: 12/06/18 09:12 Dose: 80 mg Metoprolol Tartrate (Lopressor Injection -) 5 mg IVPUSH Q4H PRN PRN Reason: HR >120 Last Admin: 12/02/18 06:06 Dose: 5 mg Multivitamins/Minerals/Vitamin C (Tab-A-Vit -) 1 tab PO DAILY [facility] Last Admin: 12/06/18 09:11 Dose: 1 tab Pantoprazole Sodium (Protonix Iv) 40 mg IVPUSH BID [facility] Last Admin: 12/06/18 22:29 Dose: 40 mg Saliva Substitute (Mouthkote Solution -) 1 applic MM Q2H PRN PRN Reason: COUGH Last Admin: 12/05/18 07:08 Dose: 1 applic Thiamine HCl (Vitamin B1 Injection -) 500 mg IVPB TID [facility] Last Admin: 12/07/18 06:01 Dose: 500 mg Gen: Intubated and sedated Heart: RRR Lung: intubated, bibasilar rhonchi, distant breath sounds Abd: soft, nontender Ext: + edema [employer] 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 Laboratory Results - last 24 hr 12/06/18 12/06/18 12/06/18 05:15 11:45 16:33 WBC RBC Hgb Hct MCV MCH MCHC RDW Plt Count MPV Absolute Neuts (auto) Neutrophils % Neutrophils % (Manual) 97.9 H Band Neutrophils % 0.0 Lymphocytes % Lymphocytes % (Manual) 1.1 L D Monocytes % Monocytes % (Manual) 1 L Eosinophils % Eosinophils % (Manual) 0.0 Basophils % Basophils % (Manual) 0.0 Myelocytes % (Man) 0 Promyelocytes % (Man) 0 Blast Cells % (Manual) 0 Nucleated RBC % Metamyelocytes 0 Hypochromia 0 Platelet Estimate Decreased Polychromasia 0 Poikilocytosis 1+ Anisocytosis 0 Microcytosis 1+ Macrocytosis 0 Spherocytes 2+ Ovalocytes 2+ Anticoagulation Therapy Puncture Site ABG pH ABG pCO2 at Pt Temp ABG pO2 at Pt Temp ABG HCO3 ABG O2 Sat (Measured) ABG O2 Content ABG Base Excess Mendoza Test O2 Delivery Device Oxygen Flow Rate Vent Mode Vent Rate Mechanical Rate Pressure Support Vent Sodium Potassium Chloride Carbon Dioxide Anion Gap BUN Creatinine Creat Clearance w eGFR POC Glucometer 205.74556 213.63651 Random Glucose Calcium Phosphorus Magnesium Total Bilirubin AST ALT Alkaline Phosphatase Total Protein Albumin 12/07/18 12/07/18 12/07/18 05:15 05:15 05:27 WBC 12.1 H RBC 4.36 Hgb 14.0 Hct 45.9 H MCV 105.2 H MCH 32.1 MCHC 30.6 L RDW 15.4 Plt Count 86 L MPV 11.0 Absolute Neuts (auto) 10.5 H Neutrophils % 87.3 H Neutrophils % (Manual) Band Neutrophils % Lymphocytes % 7.9 L D Lymphocytes % (Manual) Monocytes % 4.1 Monocytes % (Manual) Eosinophils % 0.5 D Eosinophils % (Manual) Basophils % 0.2 Basophils % (Manual) Myelocytes % (Man) Promyelocytes % (Man) Blast Cells % (Manual) Nucleated RBC % 0 Metamyelocytes Hypochromia Platelet Estimate Polychromasia Poikilocytosis Anisocytosis Microcytosis Macrocytosis Spherocytes Ovalocytes Anticoagulation Therapy Puncture Site ABG pH ABG pCO2 at Pt Temp ABG pO2 at Pt Temp ABG HCO3 ABG O2 Sat (Measured) ABG O2 Content ABG Base Excess Mendoza Test O2 Delivery Device Oxygen Flow Rate Vent Mode Vent Rate Mechanical Rate Pressure Support Vent Sodium 164 H* Potassium 4.4 Chloride 120 H Carbon Dioxide 41 H Anion Gap 3 L BUN 91 H Creatinine 1.6 H Creat Clearance w eGFR 33.59 POC Glucometer 230.86161 Random Glucose 188 H Calcium 8.7 Phosphorus 2.6 Magnesium 2.5 H Total Bilirubin 0.9 AST 17 ALT 29 Alkaline Phosphatase 101 Total Protein 5.4 L Albumin 2.5 L 12/07/18 06:05 WBC RBC Hgb Hct MCV MCH MCHC RDW Plt Count MPV Absolute Neuts (auto) Neutrophils % Neutrophils % (Manual) Band Neutrophils % Lymphocytes % Lymphocytes % (Manual) Monocytes % Monocytes % (Manual) Eosinophils % Eosinophils % (Manual) Basophils % Basophils % (Manual) Myelocytes % (Man) Promyelocytes % (Man) Blast Cells % (Manual) Nucleated RBC % Metamyelocytes Hypochromia Platelet Estimate Polychromasia Poikilocytosis Anisocytosis Microcytosis Macrocytosis Spherocytes Ovalocytes Anticoagulation Therapy No Result Required. Puncture Site Left radial ABG pH 7.42 ABG pCO2 at Pt Temp 62.8 H* ABG pO2 at Pt Temp 65.5 L ABG HCO3 39.5 H ABG O2 Sat (Measured) 91.2 ABG O2 Content 18.9 ABG Base Excess 12.1 H Mendoza Test Positive O2 Delivery Device No Result Required. Oxygen Flow Rate 55% Vent Mode No Result Required. Vent Rate No Result Required. Mechanical Rate No Result Required. Pressure Support Vent No Result Required. Sodium Potassium Chloride Carbon Dioxide Anion Gap BUN Creatinine Creat Clearance w eGFR POC Glucometer Random Glucose Calcium Phosphorus Magnesium Total Bilirubin AST ALT Alkaline Phosphatase Total Protein Albumin ASSESSMENT AND PLAN: Acute on Chronic Hypoxic and Hypercapneic Respiratory Failure Acute COPD Exacerbation Morbid Obesity Obstructive Sleep Apnea/Obesity Hypoventilation Syndrome Suspect Right Heart Failure Volume Overload Mediastinal Lymphadenopathy Atrial Flutter with RVR Cellulitis Acute Kidney Injury Alcohol Abuse - AC Mode of vent - Inhaled bronchodilators - Lasix daily - Off ABX - Digoxin - Glycemic control - Daily Medrol - Monitor urine output, creatinine - Rate control - Enteral feeds - Eliquis - Hope for SBTs in the next 1 to 2 days - ICU monitoring Dr Dixon Critical care time spent in reviewing chart, evaluating patient and formulating plan 35 min
[2018-12-07] MEDS: FOLIC ACID 1 MG TABLET (FP) PO SCH (10:19)
[2018-12-07] MEDS: APIXABAN 5 MG TABLET PO SCH ×2 (10:19→22:25)
[2018-12-07] MEDS: PANTOPRAZOLE SODIUM 40 MG VIAL IVPUSH SCH ×2 (10:20→22:23)
[2018-12-07] MEDS: GABAPENTIN 100 MG CAPSULE (FP) PO SCH (10:20)
[2018-12-07] MEDS: methylPREDNISolone NA SUCC 40 MG/1 ML VIAL IVPUSH SCH (10:20)
[2018-12-07] MEDS: BUDESONIDE/FORMETEROL FUMARATE 160/4.5 mcg INHALER IH SCH (10:20)
[2018-12-07] MEDS: DIGOXIN 0.5 MG/2 ML AMPUL IVPUSH SCH (10:20)
[2018-12-07] MEDS: MULTIVITAMINS (DAILY MVI) TABLET (FP) PO SCH (10:21)
[2018-12-07] MEDS: PROPOFOL 1,000,000 MCG/100 ML VIAL IVPB SCH ×3 (10:21→23:26)
[2018-12-07] MEDS: CYANOCOBALAMIN (VITAMIN B-12) 100 MCG TABLET PO SCH (10:21)
--- NOTE | 2018-12-07 10:54 | PN ---
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 (short form) - Note 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: Subjective: --No acute events overnight Objective: Vital Signs 12/07/18 12/07/18 12/07/18 03:30 04:00 06:00 Temperature 98.8 F Pulse Rate 56 L 69 Respiratory 18 18 17 Rate Blood Pressure 144/72 140/69 O2 Sat by Pulse Oximetry (%) 12/07/18 12/07/18 12/07/18 06:35 08:00 08:40 Temperature Pulse Rate 68 Respiratory 19 17 18 Rate Blood Pressure 123/59 L O2 Sat by Pulse Oximetry (%) 12/07/18 12/07/18 12/07/18 09:00 10:00 10:20 Temperature 98.8 F Pulse Rate 70 54 L Respiratory 18 17 Rate Blood Pressure 127/89 O2 Sat by Pulse 94 L Oximetry (%) 12/07/18 12/07/18 10:50 10:51 Temperature Pulse Rate Respiratory 17 Rate Blood Pressure O2 Sat by Pulse 94 L Oximetry (%) Gen: intubated/sedated Cardiac: S1/S2, no murmurs appreciated Pulm: clear breath sounds in anterior lung burgess Ext: WWP. 1+ edema bilaterally. Abnormal Lab Results 12/06/18 12/07/18 12/07/18 05:15 05:15 05:15 WBC 12.1 H Hct 45.9 H MCV 105.2 H MCHC 30.6 L Plt Count 86 L Absolute Neuts (auto) 10.5 H Neutrophils % 87.3 H Neutrophils % (Manual) 97.9 H Lymphocytes % 7.9 L D Lymphocytes % (Manual) 1.1 L D Monocytes % (Manual) 1 L ABG pCO2 at Pt Temp ABG pO2 at Pt Temp ABG HCO3 ABG Base Excess Sodium 164 H* Chloride 120 H Carbon Dioxide 41 H Anion Gap 3 L BUN 91 H Creatinine 1.6 H Random Glucose 188 H Magnesium 2.5 H Total Protein 5.4 L Albumin 2.5 L 12/07/18 06:05 WBC Hct MCV MCHC Plt Count Absolute Neuts (auto) Neutrophils % Neutrophils % (Manual) Lymphocytes % Lymphocytes % (Manual) Monocytes % (Manual) ABG pCO2 at Pt Temp 62.8 H* ABG pO2 at Pt Temp 65.5 L ABG HCO3 39.5 H ABG Base Excess 12.1 H Sodium Chloride Carbon Dioxide Anion Gap BUN Creatinine Random Glucose Magnesium Total Protein Albumin Active Medications Albuterol/Ipratropium (Duoneb -) 1 amp NEB RTID [facility] Last Admin: 12/07/18 08:30 Dose: 1 amp Apixaban (Eliquis -) 5 mg PO BID [facility] Last Admin: 12/07/18 10:19 Dose: 5 mg Budesonide/Formoterol Fumarate (Symbicort 160/4.5mcg -) 1 puff IH DAILY [facility] Last Admin: 12/07/18 10:20 Dose: Not Given Cyanocobalamin (Vitamin B12 -) 100 mcg PO DAILY [facility] Last Admin: 12/07/18 10:21 Dose: 100 mcg Digoxin (Lanoxin Injection -) 0.125 mg IVPUSH DAILY [facility] Last Admin: 12/07/18 10:20 Dose: Not Given Docusate Sodium (Colace Liquid -) 300 mg NGT [facility] Last Admin: 12/06/18 22:29 Dose: 300 mg Folic Acid (Folic Acid -) 1 mg PO DAILY [facility] Last Admin: 12/07/18 10:19 Dose: 1 mg Gabapentin (Neurontin -) 100 mg PO DAILY [facility] Last Admin: 12/07/18 10:20 Dose: 100 mg Fentanyl 500 mcg/ Dextrose 100 mls @ 10 mls/hr IVPB TITR [facility]; Protocol Last Titration: 12/07/18 03:05 Dose: 50 mcg/hr, 10 mls/hr Propofol (Diprivan -) 1,000,000 mcg in 100 mls @ 6.954 mls/hr IVPB TITR [facility]; Protocol Last Titration: 12/07/18 10:36 Dose: 15 mcg/kg/min, 10.43 mls/hr Insulin Aspart (Novolog Vial Sliding Scale -) 1 vial SQ [facility]; Protocol Last Admin: 12/07/18 06:04 Dose: 6 units Insulin Detemir (Levemir Vial) 10 units SQ [facility] Last Admin: 12/06/18 22:41 Dose: 10 units Methylprednisolone Sodium Succinate (Solu-Medrol -) 80 mg IVPUSH DAILY [facility] Last Admin: 12/07/18 10:20 Dose: 80 mg Metoprolol Tartrate (Lopressor Injection -) 5 mg IVPUSH Q4H PRN PRN Reason: HR >120 Last Admin: 12/02/18 06:06 Dose: 5 mg Multivitamins/Minerals/Vitamin C (Tab-A-Vit -) 1 tab PO DAILY [facility] Last Admin: 12/07/18 10:21 Dose: 1 tab Pantoprazole Sodium (Protonix Iv) 40 mg IVPUSH BID [facility] Last Admin: 12/07/18 10:20 Dose: 40 mg Saliva Substitute (Mouthkote Solution -) 1 applic MM Q2H PRN PRN Reason: COUGH Last Admin: 12/05/18 07:08 Dose: 1 applic Thiamine HCl (Vitamin B1 Injection -) 500 mg IVPB TID [facility] Last Admin: 12/07/18 06:01 Dose: 500 mg A/P: 53 YOF with h/o COPD , chronic alcoholism (several glasses of rum daily), DM, HTN, hyperlipidemia, metabolic syndrome admitted with respiratory failure secondary to COPD exacerbation currently intubated/sedated hospital course complicated by atrial flutter with rapid ventricular response now with spontaneous conversion to sinus bradycardia, off dilt gtt on digoxin. #Atrial flutter; currently sinus birgit Treatment: --continue digoxin --hold off on dilt given bradycardia --tele: 3 brif episodes of SVT AC: continue apixaban --continue to monitor on telemetry #Metabolic abnormalities, hypernatremia (Na 164); please ensure renal team closely following --continue to hold lasix and replete free water deficit per renal Management of COPD exacerbation, alcohol withdrawal and renal dysfunction per primary team. We will continue to follow. Bird Savage MD
--- NOTE | 2018-12-07 11:05 | PN ---
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 (short form) - Note 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: pt seen/ examined in icu sedated/ intubated Vital Signs Temp 98.8 F 12/07/18 10:00 Pulse 54 L 12/07/18 10:20 Resp 17 12/07/18 10:51 BP 127/89 12/07/18 10:00 Pulse Ox 94 L 12/07/18 10:50 Intake & Output 12/06/18 12/06/18 12/07/18 11:59 23:59 11:59 Intake Total 1520 1736 1700 Output Total 800 1400 800 Balance 720 336 900 Weight 255 lb 9.6 oz 250 lb 4 oz Intake: IV 240 246 240 Cardizem Injection - 125 0 mg In Normal Saline - 100 ml @ 7 MG/HR 7 mls/hr IVPB TITR [facility] Rx#: [id number] DIPRIVAN - 1,000,000 mcg 120 126 120 In 100 ml @ 10 MCG/KG/MIN 6.954 mls/hr IVPB TITR [facility] Rx#:[id number] Sublimaze Injection - 500 120 120 120 Mcg In D5w - 90 ml @ 50 MCG/HR 10 mls/hr IVPB TITR [facility] Rx#:[id number] IVPB 200 200 200 Tube Feeding 480 390 420 Tube Irrigant 600 900 840 Output: Urine 800 1400 800 Bills 800 1400 800 Other: Voiding Method Indwelling Catheter Indwelling Catheter Indwelling Catheter Bowel Movement No Weight Measurement Method Built in [facility] Active Medications Albuterol/Ipratropium (Duoneb -) 1 amp NEB RTID [facility] Last Admin: 12/07/18 08:30 Dose: 1 amp Apixaban (Eliquis -) 5 mg PO BID [facility] Last Admin: 12/07/18 10:19 Dose: 5 mg Budesonide/Formoterol Fumarate (Symbicort 160/4.5mcg -) 1 puff IH DAILY [facility] Last Admin: 12/07/18 10:20 Dose: Not Given Cyanocobalamin (Vitamin B12 -) 100 mcg PO DAILY [facility] Last Admin: 12/07/18 10:21 Dose: 100 mcg Digoxin (Lanoxin Injection -) 0.125 mg IVPUSH DAILY [facility] Last Admin: 12/07/18 10:20 Dose: Not Given Docusate Sodium (Colace Liquid -) 300 mg NGT HS [facility] Last Admin: 12/06/18 22:29 Dose: 300 mg Folic Acid (Folic Acid -) 1 mg PO DAILY [facility] Last Admin: 12/07/18 10:19 Dose: 1 mg Gabapentin (Neurontin -) 100 mg PO DAILY [facility] Last Admin: 12/07/18 10:20 Dose: 100 mg Fentanyl 500 mcg/ Dextrose 100 mls @ 10 mls/hr IVPB TITR [facility]; Protocol Last Titration: 12/07/18 03:05 Dose: 50 mcg/hr, 10 mls/hr Propofol (Diprivan -) 1,000,000 mcg in 100 mls @ 6.954 mls/hr IVPB TITR [facility]; Protocol Last Titration: 12/07/18 10:36 Dose: 15 mcg/kg/min, 10.43 mls/hr Insulin Aspart (Novolog Vial Sliding Scale -) 1 vial SQ ACHS [facility]; Protocol Last Admin: 12/07/18 06:04 Dose: 6 units Insulin Detemir (Levemir Vial) 14 units SQ HS [facility] Methylprednisolone Sodium Succinate (Solu-Medrol -) 80 mg IVPUSH DAILY [facility] Last Admin: 12/07/18 10:20 Dose: 80 mg Metoprolol Tartrate (Lopressor Injection -) 5 mg IVPUSH Q4H PRN PRN Reason: HR >120 Last Admin: 12/02/18 06:06 Dose: 5 mg Multivitamins/Minerals/Vitamin C (Tab-A-Vit -) 1 tab PO DAILY [facility] Last Admin: 12/07/18 10:21 Dose: 1 tab Pantoprazole Sodium (Protonix Iv) 40 mg IVPUSH BID [facility] Last Admin: 12/07/18 10:20 Dose: 40 mg Saliva Substitute (Mouthkote Solution -) 1 applic MM Q2H PRN PRN Reason: COUGH Last Admin: 12/05/18 07:08 Dose: 1 applic Thiamine HCl (Vitamin B1 Injection -) 500 mg IVPB TID [facility] Last Admin: 12/07/18 06:01 Dose: 500 mg CBC, BMP 12/07/18 05:15 12/07/18 05:15 cxr - no change. Physical Exam Intubated/ sedated lungs- Bilateral breath sounds anteriorly cvs- s1, s2 rrr abd - soft / obese ext- + edema a/p Respiratory failure- Intubated Hypernatremia Diabetes ETOH abuse Renal failure continue present care meds reviewed ngt feeding monitor bgm increase levemir free water via ngt -- increased monitor lytes off abx condition remains critical overall prognosis gaurded discussed with icu team/ nursing staff also again today cc time approx 25 min will follow Problem List - Problems (1) Acute respiratory failure with hypoxia and hypercapnia Code(s): J96.01 - ACUTE RESPIRATORY FAILURE WITH HYPOXIA; J96.02 - ACUTE RESPIRATORY FAILURE WITH HYPERCAPNIA (2) Atrial flutter Code(s): I48.92 - UNSPECIFIED ATRIAL FLUTTER Qualifiers: Qualified Code(s): I48.92 - Unspecified atrial flutter (3) Bilateral lower extremity edema Code(s): R60.0 - LOCALIZED EDEMA (4) Diabetes Code(s): E11.9 - TYPE 2 DIABETES MELLITUS WITHOUT COMPLICATIONS (5) Elevated LFTs Code(s): R94.5 - ABNORMAL RESULTS OF LIVER FUNCTION STUDIES (6) Hyperlipidemia Code(s): E78.5 - HYPERLIPIDEMIA, UNSPECIFIED (7) Morbid obesity Code(s): E66.01 - MORBID (SEVERE) OBESITY DUE TO EXCESS CALORIES (8) Acute renal failure Code(s): N17.9 - ACUTE KIDNEY FAILURE, UNSPECIFIED (9) Pulmonary hypertension Code(s): I27.20 - PULMONARY HYPERTENSION, UNSPECIFIED
[2018-12-07] MEDS ORDERED: fentaNYL CITRATE 250 MCG/5 ML VIAL ONE ×2 (14:42→22:17)
[2018-12-07] MEDS: FENTANYL INJECTION 500 MCG in DEXTROSE 5%-WATER - 90 ML IVPB SCH (15:05)
--- NOTE | 2018-12-07 15:17 | PN ---
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 (short form) - Note 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: Problems 1. PITO 2. hyperkalemia 3. a-flutter 4. resp failure requiring bipap 5. DM 6. HTN 7. active smoker 8. etoh abuse 9. obesity 10. interstitial lung disease on CT scan 11. resp acidosis 12. COPD 13. positive pr3 14. hypernatremia Current Medications Albuterol/Ipratropium (Duoneb -) 1 amp NEB RTID [facility] Last Admin: 12/07/18 08:30 Dose: 1 amp Apixaban (Eliquis -) 5 mg PO BID [facility] Last Admin: 12/07/18 10:19 Dose: 5 mg Budesonide/Formoterol Fumarate (Symbicort 160/4.5mcg -) 1 puff IH DAILY [facility] Last Admin: 12/07/18 10:20 Dose: Not Given Cyanocobalamin (Vitamin B12 -) 100 mcg PO DAILY [facility] Last Admin: 12/07/18 10:21 Dose: 100 mcg Digoxin (Lanoxin Injection -) 0.125 mg IVPUSH DAILY [facility] Last Admin: 12/07/18 10:20 Dose: Not Given Docusate Sodium (Colace Liquid -) 300 mg NGT HS [facility] Last Admin: 12/06/18 22:29 Dose: 300 mg Folic Acid (Folic Acid -) 1 mg PO DAILY [facility] Last Admin: 12/07/18 10:19 Dose: 1 mg Gabapentin (Neurontin -) 100 mg PO DAILY [facility] Last Admin: 12/07/18 10:20 Dose: 100 mg Fentanyl 500 mcg/ Dextrose 100 mls @ 10 mls/hr IVPB TITR [facility]; Protocol Last Admin: 12/07/18 15:05 Dose: 50 mcg/hr, 10 mls/hr Propofol (Diprivan -) 1,000,000 mcg in 100 mls @ 6.954 mls/hr IVPB TITR [facility]; Protocol Last Admin: 12/07/18 15:03 Dose: 15 mcg/kg/min, 10.43 mls/hr Insulin Aspart (Novolog Vial Sliding Scale -) 1 vial SQ ACHS [facility]; Protocol Last Admin: 12/07/18 11:52 Dose: 4 units Insulin Detemir (Levemir Vial) 14 units SQ HS [facility] Methylprednisolone Sodium Succinate (Solu-Medrol -) 80 mg IVPUSH DAILY [facility] Last Admin: 12/07/18 10:20 Dose: 80 mg Metoprolol Tartrate (Lopressor Injection -) 5 mg IVPUSH Q4H PRN PRN Reason: HR >120 Last Admin: 12/02/18 06:06 Dose: 5 mg Multivitamins/Minerals/Vitamin C (Tab-A-Vit -) 1 tab PO DAILY [facility] Last Admin: 12/07/18 10:21 Dose: 1 tab Pantoprazole Sodium (Protonix Iv) 40 mg IVPUSH BID [facility] Last Admin: 12/07/18 10:20 Dose: 40 mg Saliva Substitute (Mouthkote Solution -) 1 applic MM Q2H PRN PRN Reason: COUGH Last Admin: 12/05/18 07:08 Dose: 1 applic Thiamine HCl (Vitamin B1 Injection -) 500 mg IVPB TID [facility] Last Admin: 12/07/18 13:03 Dose: 500 mg Last Vital Signs Temp Pulse Resp BP Pulse Ox 98.5 F 56 L 18 136/66 94 L 12/07/18 14:16 12/07/18 14:16 12/07/18 14:16 12/07/18 14:16 12/07/18 10:50 CBC, BMP 12/07/18 05:15 12/07/18 05:15 on vent Wheezing, vented sounds IMP hypernatremia improving at first, worse today resp failure/copd Plan- continue water replacement
[2018-12-07] MEDS ORDERED: BENZOIN/ALOE VERA/STORAX/TOLU 58 ML BOTTLE ONE (18:24)
[2018-12-07 19:55] LABS: ANISOCYTOSIS 1+; MACROCYTOSIS 1+; OVALOCYTE 1+; PLATELET ESTIMATE DECREASED; TEAR DROP CELLS 1+
[2018-12-07] MEDS: INSULIN (LEVEMIR) 100 UNITS/ML UNITS SQ SCH (22:23)
[2018-12-07] MEDS: DOCUSATE NA 100 MG/10 ML UNIT-DOSE CUPS NGT SCH (22:25)
[2018-12-08] MEDS: FENTANYL INJECTION 500 MCG in DEXTROSE 5%-WATER - 90 ML IVPB SCH (03:00)
[2018-12-08] MEDS: PROPOFOL 1,000,000 MCG/100 ML VIAL IVPB SCH ×2 (03:00→13:23)
[2018-12-08 05:57] LABS: BASO % 0.3 % (0-2.0); EOS % 2.6 % (0-4.5); HEMATOCRIT 42.1 % (32.4-45.2); HEMOGLOBIN 13.9 GM/dL (10.7-15.3); LYMPH % 10.4 % (8-40); MCH 33.8 pg (25.7-33.7); MCHC 32.9 g/dl (32.0-36.0); MEAN CELL VOLUME 102.5 fl (80-96); MEAN PLT VOLUME 10.9 fl (7.5-11.1); MONO % 3.5 % (3.8-10.2); NEUT % 83.2 % (42.8-82.8); PLATELET COUNT 76 K/MM3 (134-434); RBC 4.11 M/mm3 (3.60-5.2); RDW 15.6 % (11.6-15.6); WHITE BLOOD COUNT 12.5 K/mm3 (4.0-10.0)
[2018-12-08] MEDS: THIAMINE HCL 200 MG/2 ML VIAL IVPB SCH (05:57)
[2018-12-08] MEDS: INSULIN SLIDING SCALE (NOVOLOG) 1 VIAL SQ SCH ×4 (05:59→21:35)
[2018-12-08 06:23] LABS: ARTERIAL BLD GAS O2 SATURATION 94.5 % (90-98.9); ARTERIAL BLOOD GAS BASE EXCESS 12.4 meq/l (-2-2); ARTERIAL BLOOD GAS PCO2 55.9 mmHg (35-45); ARTERIAL BLOOD GAS PO2 73.7 mmHg (80-100); ARTERIAL BLOOD GAS pH 7.46 (7.35-7.45)
[2018-12-08 06:32] LABS: ALBUMIN 2.3 g/dl (3.4-5.0); ALK PHOS 90 U/L (45-117); ANION GAP 1 MMOL/L (8-16); BILIRUBIN,TOTAL 0.7 mg/dL (0.2-1); BLOOD UREA NITROGEN 76 mg/dL (7-18); CALCIUM 8.6 mg/dL (8.5-10.1); CHLORIDE 117 mmol/L (98-107); CO2 40 mmol/L (21-32); CREATININE 1.6 mg/dL (0.55-1.3); GLUCOSE,RANDOM 171 mg/dL (74-106); MAGNESIUM 2.1 mg/dL (1.8-2.4); PHOSPHOROUS 2.7 mg/dL (2.5-4.9); POTASSIUM 4.3 mmol/L (3.5-5.1); SGOT/AST 22 U/L (15-37); SGPT/ALT 24 U/L (13-61); SODIUM 159 mmol/L (136-145)
[2018-12-08 07:02] LABS: ALLENS TEST POSITIVE
[2018-12-08] MEDS: ALBUTEROL SO4 2.5/IPRATROPIUM 0.5 INH SOL 3 ML VIAL.NEB. NEB SCH ×3 (07:50→21:10)
--- NOTE | 2018-12-08 08:22 | PN ---
Physical Exam: SUBJECTIVE: Patient seen and examined OBJECTIVE: Vital Signs Period Temp Pulse Resp BP Sys/Gregorio Pulse Ox Last 24 Hr 98 F-99.1 F 52-74 17-19 118-148/55-89 94-96 ASSESSMENT/PLAN: The pt is a 53F with a PMH of COPD, acute/chronic EtOH abuse (several glasses of rum daily), long-term tobacco abuse, TRINH, morbid obesity, DM, HTN, hyperlipidemia, cellulites, metabolic syndrome who was transferred to ICU due to worsening respiratory failure 11/27 - Patient w/ worsening mentation and respiratory status throughout the morning. Worsening repeat ABG. Decision was made to intubate for hypercapnic/ hypoxic respiratory failure 11/28 - Vented, ABG improving 12/01 - Extubated to HFNC. OGT D/C'ed. 12/02 - +PR3, plan for kidney bx in 7d (ASA held) 12/03 - Methylprednisolone 12/04 - Trial high flow, swallow eval 12/05 - Intubated, OGT placed, TF started; CT chest w/o for eval of ILD 12/07 - Inc. free water flush 12/08 - Cont. free water, dec thiamine, plan vent wean tomorrow Neuro ETOH abuse, dependence -Patient no longer likely to withdraw given length of time in hospital Tobacco abuse -Educated CV Cardiology Dr Ronny Caceres -Apixaban -Digoxin HTN -Antihypertensives held 2/2 relative hypotension Hypervolemia w/ pulmonary congestion -Lasix 40mg IV PRN Pulm Acute hypercapnic respiratory failure due to pulmonary edema can Not R/O CHF vs copd exacerbation -Continue symbicort -Continue broncodilators -s/p intubation 11/27/2018 for acute decompensation --Extubated 12/01/2018 -Patient was on continuous BiPap, failed wean to HFNC --Intubated 12/05/2018 for hypercapnic respiratory failure ILD possible on initial CT -Methylprednisolone 80mg IV daily -F/u CT chest w/o evidence of ILD GI Nutrition -OGT placed 12/05/2018 -TF -Thiamine, folate, B12 daily GI Ppx -Protonix PITO -Avoid nephrotoxic agents -Nephrology consulted -Improving Hyperkalemia -Resolved Hypernatremia -Will increase TF free water Heme DVT Ppx: scds, eliquis ID BLE Cellulitis -Not likely infectious in etiology -s/p Abx course -no further abx at this time Endo DM -BGM ACHS -ISS increased on 2 2/2 poor glycemic control Morbid obesity -Educated about low calories diet , losing weight , daily exercise LTD Bills- 11/25/2018 ETT- 12/05/2018 OGT- 12/05/2018 PIV Dispo: Patient continues to require ICU level of care. Visit type - Emergency Visit Emergency Visit: Yes ED Registration Date: 11/23/18 Care time: The patient presented to the Emergency Department on the above date and was hospitalized for further evaluation of their emergent condition. - New Patient This patient is new to me today: Yes Date on this admission: 12/08/18 - Critical Care Critical Care patient: Yes Total Critical Care Time (in minutes): 35 Critical Care Statement: The care of this patient involved high complexity decision making to prevent further life threatening deterioration of the patient 's condition and/or to evaluate & treat vital organ system(s) failure or risk of failure.
--- NOTE | 2018-12-08 11:03 | PN ---
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 (short form) - Note 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: sedated/ intubated in icu whole family at bedside-- aunt/ mother/ sister all f/u noted Vital Signs Temp 99.5 F 12/08/18 10:00 Pulse 68 12/08/18 10:00 Resp 18 12/08/18 10:00 BP 120/60 12/08/18 10:00 Pulse Ox 95 12/08/18 08:40 Intake & Output 12/07/18 12/07/18 12/08/18 11:59 23:59 11:59 Intake Total 1700 2462 1304 Output Total 800 2000 800 Balance 900 462 504 Weight 250 lb 4 oz 251 lb 4.8 oz Intake: IV 240 322 164 DIPRIVAN - 1,000,000 mcg 120 162 84 In 100 ml @ 10 MCG/KG/MIN 6.954 mls/hr IVPB TITR [facility] Rx#:[id number] Sublimaze Injection - 500 120 160 80 Mcg In D5w - 90 ml @ 50 MCG/HR 10 mls/hr IVPB TITR [facility] Rx#:[id number] IVPB 200 100 100 Tube Feeding 420 560 280 Tube Irrigant 840 1480 760 Output: Urine 800 2000 800 Bills 800 2000 800 Other: Voiding Method Indwelling Catheter Indwelling Catheter Bowel Movement No No Weight Measurement Method [facility] Active Medications Albuterol/Ipratropium (Duoneb -) 1 amp NEB RTID [facility] Last Admin: 12/08/18 07:50 Dose: 1 amp Apixaban (Eliquis -) 5 mg PO BID [facility] Last Admin: 12/07/18 22:25 Dose: 5 mg Budesonide/Formoterol Fumarate (Symbicort 160/4.5mcg -) 1 puff IH DAILY [facility] Last Admin: 12/07/18 10:20 Dose: Not Given Cyanocobalamin (Vitamin B12 -) 100 mcg PO DAILY [facility] Last Admin: 12/07/18 10:21 Dose: 100 mcg Digoxin (Lanoxin Injection -) 0.125 mg IVPUSH DAILY [facility] Last Admin: 12/07/18 10:20 Dose: Not Given Docusate Sodium (Colace Liquid -) 300 mg NGT HS [facility] Last Admin: 12/07/18 22:25 Dose: 300 mg Folic Acid (Folic Acid -) 1 mg PO DAILY [facility] Last Admin: 12/07/18 10:19 Dose: 1 mg Gabapentin (Neurontin -) 100 mg PO DAILY [facility] Last Admin: 12/07/18 10:20 Dose: 100 mg Fentanyl 500 mcg/ Dextrose 100 mls @ 10 mls/hr IVPB TITR [facility]; Protocol Last Admin: 12/08/18 03:00 Dose: 50 mcg/hr, 10 mls/hr Propofol (Diprivan -) 1,000,000 mcg in 100 mls @ 6.954 mls/hr IVPB TITR [facility]; Protocol Last Admin: 12/08/18 03:00 Dose: 15 mcg/kg/min, 10.43 mls/hr Insulin Aspart (Novolog Vial Sliding Scale -) 1 vial SQ ACHS [facility]; Protocol Last Admin: 12/08/18 05:59 Dose: 6 units Insulin Detemir (Levemir Vial) 14 units SQ HS [facility] Last Admin: 12/07/18 22:23 Dose: 14 units Methylprednisolone Sodium Succinate (Solu-Medrol -) 80 mg IVPUSH DAILY [facility] Last Admin: 12/07/18 10:20 Dose: 80 mg Metoprolol Tartrate (Lopressor Injection -) 5 mg IVPUSH Q4H PRN PRN Reason: HR >120 Last Admin: 12/02/18 06:06 Dose: 5 mg Multivitamins/Minerals/Vitamin C (Tab-A-Vit -) 1 tab PO DAILY [facility] Last Admin: 12/07/18 10:21 Dose: 1 tab Pantoprazole Sodium (Protonix Iv) 40 mg IVPUSH BID [facility] Last Admin: 12/07/18 22:23 Dose: 40 mg Saliva Substitute (Mouthkote Solution -) 1 applic MM Q2H PRN PRN Reason: COUGH Last Admin: 12/05/18 07:08 Dose: 1 applic Thiamine HCl (Vitamin B1 Injection -) 500 mg IVPB TID [facility] Last Admin: 12/08/18 05:57 Dose: 500 mg CBC, BMP 12/08/18 05:15 12/08/18 05:15 Abnormal Lab Results 12/08/18 12/08/18 12/08/18 05:15 05:15 05:44 WBC 12.5 H MCV 102.5 H MCH 33.8 H Plt Count 76 L Absolute Neuts (auto) 10.4 H Neutrophils % 83.2 H Monocytes % 3.5 L ABG pH 7.46 H ABG pCO2 at Pt Temp 55.9 H ABG pO2 at Pt Temp 73.7 L ABG HCO3 38.7 H ABG Base Excess 12.4 H Sodium 159 H Chloride 117 H Carbon Dioxide 40 H Anion Gap 1 L BUN 76 H Creatinine 1.6 H Random Glucose 171 H Total Protein 5.0 L Albumin 2.3 L cxr- noted ABG Results ABG pH 7.46 (7.35-7.45) H 12/08/18 05:44 ABG pCO2 at Pt Temp 55.9 mmHg (35-45) H 12/08/18 05:44 ABG pO2 at Pt Temp 73.7 mmHg (80-100) L 12/08/18 05:44 ABG HCO3 38.7 meq/L (22-26) H 12/08/18 05:44 ABG O2 Sat (Measured) 94.5 % (90-98.9) 12/08/18 05:44 ABG O2 Content 18.5 % vol (15-22) 12/08/18 05:44 ABG Base Excess 12.4 meq/l (-2-2) H 12/08/18 05:44 Physical Exam Intubated/ sedated lungs- Bilateral breath sounds anteriorly cvs- s1, s2 rrr abd - soft / obese ext- + edema a/p Respiratory failure- Intubated Hypernatremia Diabetes ETOH abuse Renal failure continue present care weaning as tolerated meds reviewed. ngt feeding monitor bgm increased levemir yesterday-- monitor free water via ngt --sodium better monitor lytes off abx taper medrol condition remains critical overall prognosis gaurded discussed with icu team/ nursing staff also again today as well as with whole family cc time approx 30 min discussed with icu team/ Dr. Keating also. will follow Problem List - Problems (1) Acute respiratory failure with hypoxia and hypercapnia Code(s): J96.01 - ACUTE RESPIRATORY FAILURE WITH HYPOXIA; J96.02 - ACUTE RESPIRATORY FAILURE WITH HYPERCAPNIA (2) Atrial flutter Code(s): I48.92 - UNSPECIFIED ATRIAL FLUTTER Qualifiers: Atrial flutter type: unspecified Qualified Code(s): I48.92 - Unspecified atrial flutter (3) Bilateral lower extremity edema Code(s): R60.0 - LOCALIZED EDEMA (4) Diabetes Code(s): E11.9 - TYPE 2 DIABETES MELLITUS WITHOUT COMPLICATIONS (5) Elevated LFTs Code(s): R94.5 - ABNORMAL RESULTS OF LIVER FUNCTION STUDIES (6) Hyperlipidemia Code(s): E78.5 - HYPERLIPIDEMIA, UNSPECIFIED (7) Morbid obesity Code(s): E66.01 - MORBID (SEVERE) OBESITY DUE TO EXCESS CALORIES (8) Acute renal failure Code(s): N17.9 - ACUTE KIDNEY FAILURE, UNSPECIFIED (9) Pulmonary hypertension Code(s): I27.20 - PULMONARY HYPERTENSION, UNSPECIFIED
[2018-12-08] MEDS: methylPREDNISolone NA SUCC 40 MG/1 ML VIAL IVPUSH SCH (11:09)
[2018-12-08] MEDS: DIGOXIN 0.5 MG/2 ML AMPUL IVPUSH SCH (11:10)
[2018-12-08] MEDS: CYANOCOBALAMIN (VITAMIN B-12) 100 MCG TABLET PO SCH (11:12)
[2018-12-08] MEDS: MULTIVITAMINS (DAILY MVI) TABLET (FP) PO SCH (11:12)
[2018-12-08] MEDS: GABAPENTIN 100 MG CAPSULE (FP) PO SCH (11:12)
[2018-12-08] MEDS: APIXABAN 5 MG TABLET PO SCH ×2 (11:12→21:31)
[2018-12-08] MEDS: FOLIC ACID 1 MG TABLET (FP) PO SCH (11:12)
[2018-12-08] MEDS: PANTOPRAZOLE SODIUM 40 MG VIAL IVPUSH SCH ×2 (11:13→21:31)
[2018-12-08] MEDS: BUDESONIDE/FORMETEROL FUMARATE 160/4.5 mcg INHALER IH SCH (11:13)
--- NOTE | 2018-12-08 12:51 | PN ---
Teaching Attending Note Name of Resident: Heriberto Urena ATTENDING PHYSICIAN STATEMENT I saw and evaluated the patient. I reviewed the resident's note and discussed the case with the resident. I agree with the resident's findings and plan as documented. SUBJECTIVE: Pt seen and examined in the ICU. Remains intubated, sedated. Vented on volume assist control with 55% FiO2, PEEP 8. OBJECTIVE: Vital Signs Period Temp Pulse Resp BP Sys/Gregorio Pulse Ox Last 24 Hr 98 F-99.5 F 52-74 15-19 119-148/58-75 94-96 Intake & Output 12/05/18 12/06/18 12/07/18 12/08/18 23:59 23:59 23:59 23:59 Intake Total 1674 3256 4162 1304 Output Total 4050 2200 2800 800 Balance -2376 1056 1362 504 Weight 115.893 kg 115.938 kg 113.511 kg 113.988 kg Gen: intubated, sedated Heart: RRR Lung: decreased breath sounds at the bases Abd: soft, nontender Ext: + edema CBC, BMP 12/08/18 05:15 12/08/18 05:15 Active Medications Albuterol/Ipratropium (Duoneb -) 1 amp NEB RTID [facility] Last Admin: 12/08/18 07:50 Dose: 1 amp Apixaban (Eliquis -) 5 mg PO BID [facility] Last Admin: 12/08/18 11:12 Dose: 5 mg Budesonide/Formoterol Fumarate (Symbicort 160/4.5mcg -) 1 puff IH DAILY [facility] Last Admin: 12/08/18 11:13 Dose: Not Given Chlorhexidine Gluconate (Peridex -) 15 ml MM BID [facility] Cyanocobalamin (Vitamin B12 -) 100 mcg PO DAILY [facility] Last Admin: 12/08/18 11:12 Dose: 100 mcg Digoxin (Lanoxin Injection -) 0.125 mg IVPUSH DAILY [facility] Last Admin: 12/08/18 11:10 Dose: 0.125 mg Docusate Sodium (Colace Liquid -) 300 mg NGT HS [facility] Last Admin: 12/07/18 22:25 Dose: 300 mg Folic Acid (Folic Acid -) 1 mg PO DAILY [facility] Last Admin: 12/08/18 11:12 Dose: 1 mg Gabapentin (Neurontin -) 100 mg PO DAILY [facility] Last Admin: 12/08/18 11:12 Dose: 100 mg Fentanyl 500 mcg/ Dextrose 100 mls @ 10 mls/hr IVPB TITR [facility]; Protocol Last Admin: 12/08/18 03:00 Dose: 50 mcg/hr, 10 mls/hr Propofol (Diprivan -) 1,000,000 mcg in 100 mls @ 6.954 mls/hr IVPB TITR [facility]; Protocol Last Admin: 12/08/18 03:00 Dose: 15 mcg/kg/min, 10.43 mls/hr Insulin Aspart (Novolog Vial Sliding Scale -) 1 vial SQ ACHS [facility]; Protocol Last Admin: 12/08/18 05:59 Dose: 6 units Insulin Detemir (Levemir Vial) 14 units SQ HS [facility] Last Admin: 12/07/18 22:23 Dose: 14 units Methylprednisolone Sodium Succinate (Solu-Medrol -) 80 mg IVPUSH DAILY [facility] Last Admin: 12/08/18 11:09 Dose: 80 mg Metoprolol Tartrate (Lopressor Injection -) 5 mg IVPUSH Q4H PRN PRN Reason: HR >120 Last Admin: 12/02/18 06:06 Dose: 5 mg Multivitamins/Minerals/Vitamin C (Tab-A-Vit -) 1 tab PO DAILY [facility] Last Admin: 12/08/18 11:12 Dose: 1 tab Pantoprazole Sodium (Protonix Iv) 40 mg IVPUSH BID [facility] Last Admin: 12/08/18 11:13 Dose: 40 mg Saliva Substitute (Mouthkote Solution -) 1 applic MM Q2H PRN PRN Reason: COUGH Last Admin: 12/05/18 07:08 Dose: 1 applic Thiamine HCl (Vitamin B1 Injection -) 200 mg IVPB DAILY [facility] ASSESSMENT AND PLAN: Acute on Chronic Hypoxic and Hypercapneic Respiratory Failure Acute COPD Exacerbation Morbid Obesity Obstructive Sleep Apnea/Obesity Hypoventilation Syndrome Suspect Right Heart Failure Volume Overload Mediastinal Lymphadenopathy Atrial Flutter with RVR Cellulitis Acute Kidney Injury Alcohol Abuse - medrol taper - inhaled bronchodilators - lasix as needed - completed antibiotics - rate controlled - continue anticoagulation - monitor urine output, creatinine - taper FiO2, PEEP to keep Spo2 >90% - hold sedation to assess mental status - spontaneous breathing trials as tolerated when mental status improved - enteral feeds - DVT/GI prophylaxis - continue ICU monitoring critical care time spent in reviewing chart, evaluating patient and formulating plan 35 min
[2018-12-08] MEDS: CHLORHEXIDINE GLUCONATE 0.12% 15ML CUP MM SCH ×2 (13:23→21:32)
[2018-12-08] MEDS ORDERED: PT OWN MED DRAWER 7, Y5N ONE (13:31)
--- NOTE | 2018-12-08 13:59 | PN ---
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, Physician History of Present Illness: 53 YO white woman with h/o COPD (placed on steroid course 2 days ago without relief) acute/chronic alcoholism (several glasses of rum daily), long-term cigarette smoker, sleep apnea, morbid obesity, DM, HTN, hyperlipidemia, chronic erythema of LEs with hx cellulitis, metabolic syndrome, who is now admitted with SOB and wheezing similar to her prior COPD exacerbation. She additionally notes awakening in the middle of the night last night with visual hallucinations. She additionally notes abdominal swelling recently, believes she has an abdominal infection but does not know what kind. Denies h/o heart arrhythmia. She has noticed her lips are more blue than normal. - Current Medication List Current Medications: Active Medications Albuterol/Ipratropium (Duoneb -) 1 amp NEB RTID [facility] Last Admin: 12/08/18 07:50 Dose: 1 amp Apixaban (Eliquis -) 5 mg PO BID [facility] Last Admin: 12/08/18 11:12 Dose: 5 mg Budesonide/Formoterol Fumarate (Symbicort 160/4.5mcg -) 1 puff IH DAILY [facility] Last Admin: 12/08/18 11:13 Dose: Not Given Chlorhexidine Gluconate (Peridex -) 15 ml MM BID [facility] Last Admin: 12/08/18 13:23 Dose: 15 ml Cyanocobalamin (Vitamin B12 -) 100 mcg PO DAILY [facility] Last Admin: 12/08/18 11:12 Dose: 100 mcg Digoxin (Lanoxin Injection -) 0.125 mg IVPUSH DAILY [facility] Last Admin: 12/08/18 11:10 Dose: 0.125 mg Docusate Sodium (Colace Liquid -) 300 mg NGT HS [facility] Last Admin: 12/07/18 22:25 Dose: 300 mg Folic Acid (Folic Acid -) 1 mg PO DAILY [facility] Last Admin: 12/08/18 11:12 Dose: 1 mg Gabapentin (Neurontin -) 100 mg PO DAILY [facility] Last Admin: 12/08/18 11:12 Dose: 100 mg Fentanyl 500 mcg/ Dextrose 100 mls @ 10 mls/hr IVPB TITR [facility]; Protocol Last Admin: 12/08/18 03:00 Dose: 50 mcg/hr, 10 mls/hr Propofol (Diprivan -) 1,000,000 mcg in 100 mls @ 6.954 mls/hr IVPB TITR [facility]; Protocol Last Admin: 12/08/18 13:23 Dose: 15 mcg/kg/min, 10.43 mls/hr Insulin Aspart (Novolog Vial Sliding Scale -) 1 vial SQ ACHS [facility]; Protocol Last Admin: 12/08/18 13:22 Dose: 4 units Insulin Detemir (Levemir Vial) 14 units SQ HS [facility] Last Admin: 12/07/18 22:23 Dose: 14 units Methylprednisolone Sodium Succinate (Solu-Medrol -) 80 mg IVPUSH DAILY [facility] Last Admin: 12/08/18 11:09 Dose: 80 mg Metoprolol Tartrate (Lopressor Injection -) 5 mg IVPUSH Q4H PRN PRN Reason: HR >120 Last Admin: 12/02/18 06:06 Dose: 5 mg Multivitamins/Minerals/Vitamin C (Tab-A-Vit -) 1 tab PO DAILY [facility] Last Admin: 12/08/18 11:12 Dose: 1 tab Pantoprazole Sodium (Protonix Iv) 40 mg IVPUSH BID [facility] Last Admin: 12/08/18 11:13 Dose: 40 mg Saliva Substitute (Mouthkote Solution -) 1 applic MM Q2H PRN PRN Reason: COUGH Last Admin: 12/05/18 07:08 Dose: 1 applic Thiamine HCl (Vitamin B1 Injection -) 200 mg IVPB DAILY [facility] - Objective Vital Signs: Vital Signs Temperature 98.8 F 12/08/18 13:17 Pulse Rate 72 12/08/18 13:17 Respiratory Rate 18 12/08/18 13:17 Blood Pressure 119/58 L 12/08/18 13:17 O2 Sat by Pulse Oximetry (%) 95 12/08/18 09:00 Eyes: Yes: WNL, Conjunctiva Clear, EOM Intact HENT: Yes: WNL, Atraumatic, Normocephalic Neck: Yes: WNL, Supple, Trachea Midline Cardiovascular: Yes: WNL, Regular Rate and Rhythm Respiratory: Yes: Intubated, Mechanically Ventilated Gastrointestinal: Yes: WNL, Normal Bowel Sounds Genitourinary: Yes: WNL Musculoskeletal: Yes: WNL Extremities: Yes: WNL Edema: Yes Integumentary: Yes: WNL ...Motor Strength: WNL Psychiatric: Yes: WNL Labs: CBC, BMP 12/08/18 05:15 12/08/18 05:15 INR, PTT INR 1.13 (0.83-1.09) H 11/23/18 16:40 Assessment/Plan 53 YOF with h/o COPD , chronic alcoholism (several glasses of rum daily), DM, HTN, hyperlipidemia, metabolic syndrome admitted with respiratory failure secondary to COPD exacerbation currently intubated/sedated hospital course complicated by atrial flutter with rapid ventricular response now with spontaneous conversion to sinus bradycardia, off dilt gtt on digoxin. #Atrial flutter; currently sinus birgit Treatment: --continue digoxin --hold off on dilt given bradycardia --tele: 3 brif episodes of SVT AC: continue apixaban --continue to monitor on telemetry #Metabolic abnormalities, hypernatremia (Na 164); please ensure renal team closely following --continue to hold lasix and replete free water deficit per renal Management of COPD exacerbation, alcohol withdrawal and renal dysfunction per primary team. cc time 37 min
[2018-12-08] MEDS ORDERED: fentaNYL CITRATE 250 MCG/5 ML VIAL ONE ×2 (14:36→20:59)
--- NOTE | 2018-12-08 14:46 | PN ---
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, Physician History of Present Illness: Pt seen and examined at bedside. SHe remains in the ICU. She remains intubated. - Current Medication List Current Medications: Active Medications Albuterol/Ipratropium (Duoneb -) 1 amp NEB RTID [facility] Last Admin: 12/08/18 14:25 Dose: 1 amp Apixaban (Eliquis -) 5 mg PO BID [facility] Last Admin: 12/08/18 11:12 Dose: 5 mg Budesonide/Formoterol Fumarate (Symbicort 160/4.5mcg -) 1 puff IH DAILY [facility] Last Admin: 12/08/18 11:13 Dose: Not Given Chlorhexidine Gluconate (Peridex -) 15 ml MM BID [facility] Last Admin: 12/08/18 13:23 Dose: 15 ml Cyanocobalamin (Vitamin B12 -) 100 mcg PO DAILY [facility] Last Admin: 12/08/18 11:12 Dose: 100 mcg Digoxin (Lanoxin Injection -) 0.125 mg IVPUSH DAILY [facility] Last Admin: 12/08/18 11:10 Dose: 0.125 mg Docusate Sodium (Colace Liquid -) 300 mg NGT HS [facility] Last Admin: 12/07/18 22:25 Dose: 300 mg Folic Acid (Folic Acid -) 1 mg PO DAILY [facility] Last Admin: 12/08/18 11:12 Dose: 1 mg Gabapentin (Neurontin -) 100 mg PO DAILY [facility] Last Admin: 12/08/18 11:12 Dose: 100 mg Fentanyl 500 mcg/ Dextrose 100 mls @ 10 mls/hr IVPB TITR [facility]; Protocol Last Admin: 12/08/18 03:00 Dose: 50 mcg/hr, 10 mls/hr Propofol (Diprivan -) 1,000,000 mcg in 100 mls @ 6.954 mls/hr IVPB TITR [facility]; Protocol Last Admin: 12/08/18 13:23 Dose: 15 mcg/kg/min, 10.43 mls/hr Insulin Aspart (Novolog Vial Sliding Scale -) 1 vial SQ ACHS [facility]; Protocol Last Admin: 12/08/18 13:22 Dose: 4 units Insulin Detemir (Levemir Vial) 14 units SQ HS [facility] Last Admin: 12/07/18 22:23 Dose: 14 units Methylprednisolone Sodium Succinate (Solu-Medrol -) 80 mg IVPUSH DAILY [facility] Last Admin: 12/08/18 11:09 Dose: 80 mg Metoprolol Tartrate (Lopressor Injection -) 5 mg IVPUSH Q4H PRN PRN Reason: HR >120 Last Admin: 12/02/18 06:06 Dose: 5 mg Multivitamins/Minerals/Vitamin C (Tab-A-Vit -) 1 tab PO DAILY [facility] Last Admin: 12/08/18 11:12 Dose: 1 tab Pantoprazole Sodium (Protonix Iv) 40 mg IVPUSH BID [facility] Last Admin: 12/08/18 11:13 Dose: 40 mg Saliva Substitute (Mouthkote Solution -) 1 applic MM Q2H PRN PRN Reason: COUGH Last Admin: 12/05/18 07:08 Dose: 1 applic Thiamine HCl (Vitamin B1 Injection -) 200 mg IVPB DAILY [facility] - Objective Vital Signs: Vital Signs Temperature 98.8 F 12/08/18 14:00 Pulse Rate 72 12/08/18 14:00 Respiratory Rate 14 12/08/18 14:26 Blood Pressure 119/58 L 12/08/18 14:00 O2 Sat by Pulse Oximetry (%) 95 12/08/18 09:00 Constitutional: Yes: Calm Eyes: Yes: Conjunctiva Clear Cardiovascular: Yes: S1, S2 Respiratory: Yes: Mechanically Ventilated Gastrointestinal: Yes: Soft, Abdomen, Obese Genitourinary: Yes: Bills Present Musculoskeletal: Yes: Muscle Weakness Edema: Yes Edema: LLE: 1+, RLE: 1+ Integumentary: Yes: Venous Stasis Changes Neurological: Yes: Lethargy Labs: CBC, BMP 12/08/18 05:15 12/08/18 05:15 INR, PTT INR 1.13 (0.83-1.09) H 11/23/18 16:40 - ....Imaging Chest X-ray: Report Reviewed Problem List - Problems (1) Hyperkalemia Code(s): E87.5 - HYPERKALEMIA (2) Acute on chronic respiratory failure with hypoxia and hypercapnia Code(s): J96.21 - ACUTE AND CHRONIC RESPIRATORY FAILURE WITH HYPOXIA; J96.22 - ACUTE AND CHRONIC RESPIRATORY FAILURE WITH HYPERCAPNIA (3) Acute renal failure Code(s): N17.9 - ACUTE KIDNEY FAILURE, UNSPECIFIED (4) Alcoholism Code(s): F10.20 - ALCOHOL DEPENDENCE, UNCOMPLICATED (5) Atrial flutter Code(s): I48.92 - UNSPECIFIED ATRIAL FLUTTER Qualifiers: Atrial flutter type: unspecified Qualified Code(s): I48.92 - Unspecified atrial flutter (6) Bilateral lower extremity edema Code(s): R60.0 - LOCALIZED EDEMA (7) COPD exacerbation Code(s): J44.1 - CHRONIC OBSTRUCTIVE PULMONARY DISEASE W (ACUTE) EXACERBATION Assessment/Plan Current Medications Generic Name Dose Route Start Last Admin Trade Name Freq PRN Reason Stop Dose Admin Albuterol/Ipratropium 1 amp 12/06/18 14:00 12/08/18 14:25 Duoneb - NEB 1 amp RTID [facility] Administration Apixaban 5 mg 11/24/18 10:00 12/08/18 11:12 Eliquis - PO 5 mg BID [facility] Administration Budesonide/Formoterol Fumarate 1 puff 11/24/18 10:00 12/08/18 11:13 Symbicort 160/4.5mcg - IH Not Given DAILY [facility] Chlorhexidine Gluconate 15 ml 12/08/18 11:45 12/08/18 13:23 Peridex - MM 15 ml BID [facility] Administration Cyanocobalamin 100 mcg 12/05/18 13:00 12/08/18 11:12 Vitamin B12 - PO 100 mcg DAILY [facility] Administration Digoxin 0.125 mg 12/02/18 12:15 12/08/18 11:10 Lanoxin Injection - IVPUSH 0.125 mg DAILY [facility] Administration Docusate Sodium 300 mg 12/06/18 22:00 12/07/18 22:25 Colace Liquid - NGT 300 mg HS [facility] Administration Folic Acid 1 mg 12/05/18 14:15 12/08/18 11:12 Folic Acid - PO 1 mg DAILY [facility] Administration Gabapentin 100 mg 11/24/18 10:00 12/08/18 11:12 Neurontin - PO 100 mg DAILY [facility] Administration Fentanyl 500 mcg/ Dextrose 100 mls @ 10 mls/hr 12/05/18 12:45 12/08/18 03:00 IVPB 50 mcg/hr TITR [facility] 10 mls/hr Administration Protocol 50 MCG/HR Propofol 1,000,000 mcg in 100 mls @ 6.954 mls/hr 12/05/18 12:45 12/08/18 13: 23 Diprivan - IVPB 15 mcg/kg/min TITR [facility] 10.43 mls/hr Administration Protocol 10 MCG/KG/MIN Insulin Aspart 1 vial 12/03/18 10:32 12/08/18 13:22 Novolog Vial Sliding Scale - SQ 4 units ACHS [facility] Administration Protocol Insulin Detemir 14 units 12/07/18 22:00 12/07/18 22:23 Levemir Vial SQ 14 units HS [facility] Administration Methylprednisolone Sodium Succinate 80 mg 12/05/18 10:00 12/08/18 11:09 Solu-Medrol - IVPUSH 80 mg DAILY [facility] Administration Metoprolol Tartrate 5 mg 11/28/18 21:33 12/02/18 06:06 Lopressor Injection - IVPUSH 5 mg Q4H PRN Administration HR >120 Multivitamins/Minerals/Vitamin C 1 tab 11/24/18 10:00 12/08/18 11:12 Tab-A-Vit - PO 1 tab DAILY [facility] Administration Pantoprazole Sodium 40 mg 12/02/18 22:00 12/08/18 11:13 Protonix Iv IVPUSH 40 mg BID [facility] Administration Saliva Substitute 1 applic 12/05/18 06:36 12/05/18 07:08 Mouthkote Solution - MM 1 applic Q2H PRN Administration COUGH Thiamine HCl 200 mg 12/09/18 10:00 Vitamin B1 Injection - IVPB DAILY [facility] Laboratory Tests 12/03/18 12/03/18 15:00 21:20 Urine Protein Negative Urine Blood Negative c-ANCA Pending Proteinase 3 (PR3) Pending p-ANCA Pending Atypical p-ANCA Pending Myeloperoxidase Ab Pending Impression 1. PITO 2. hyperkalemia 3. a-flutter 4. resp failure requiring bipap 5. DM 6. HTN 7. active smoker 8. etoh abuse 9. obesity 10. interstitial lung disease on CT scan 11. resp acidosis 12. COPD 13. positive pr3 14. hypernatremia Plan - follow repeat vascilitis panel - ua neg for blood or protein - renal function is improving - lasix prn - repeat labs in am - discussed with attending - discussed case with family at length - sodium is improving, cont feeds - vent support - asa on hold - discussed with ICU team - rheum follow up - will follow closely
[2018-12-08] MEDS: DOCUSATE NA 100 MG/10 ML UNIT-DOSE CUPS NGT SCH (21:31)
[2018-12-08] MEDS: INSULIN (LEVEMIR) 100 UNITS/ML UNITS SQ SCH (21:35)
[2018-12-09] MEDS: INSULIN SLIDING SCALE (NOVOLOG) 1 VIAL SQ SCH ×4 (06:19→21:42)
[2018-12-09 06:35] LABS: HEMATOCRIT 44.6 % (32.4-45.2); HEMOGLOBIN 14.1 GM/dL (10.7-15.3); MCH 32.7 pg (25.7-33.7); MCHC 31.6 g/dl (32.0-36.0); MEAN CELL VOLUME 103.4 fl (80-96); MEAN PLT VOLUME 11.4 fl (7.5-11.1); PLATELET COUNT 65 K/MM3 (134-434); RBC 4.31 M/mm3 (3.60-5.2); RDW 15.6 % (11.6-15.6); WHITE BLOOD COUNT 14.7 K/mm3 (4.0-10.0)
[2018-12-09 06:36] LABS: ARTERIAL BLD GAS O2 SATURATION 94.8 % (90-98.9); ARTERIAL BLOOD GAS PCO2 65.3 mmHg (35-45); ARTERIAL BLOOD GAS pH 7.37 (7.35-7.45)
[2018-12-09 07:00] LABS: ALLENS TEST POSITIVE
[2018-12-09 07:24] LABS: ALBUMIN 2.2 g/dl (3.4-5.0); ALK PHOS 99 U/L (45-117); ANION GAP 1 MMOL/L (8-16); BILIRUBIN,TOTAL 0.7 mg/dL (0.2-1); BLOOD UREA NITROGEN 68 mg/dL (7-18); CALCIUM 8.5 mg/dL (8.5-10.1); CHLORIDE 112 mmol/L (98-107); CO2 40 mmol/L (21-32); CREATININE 1.4 mg/dL (0.55-1.3); GLUCOSE,RANDOM 174 mg/dL (74-106); MAGNESIUM 2.5 mg/dL (1.8-2.4); PHOSPHOROUS 4.2 mg/dL (2.5-4.9); POTASSIUM 4.7 mmol/L (3.5-5.1); SGOT/AST 19 U/L (15-37); SGPT/ALT 25 U/L (13-61); SODIUM 153 mmol/L (136-145); TOT PROT 5.3 g/dl (6.4-8.2)
[2018-12-09] MEDS ORDERED: BISACODYL 5 MG TABLET.DR (FP) PO ONE (07:30)
--- NOTE | 2018-12-09 07:44 | PN ---
Physical Exam: SUBJECTIVE: Patient seen and examined. Patient reports feeling uncomfortable, denies pain. Reports improved ease of breathing. Denies nausea OBJECTIVE: Vital Signs Period Temp Pulse Resp BP Sys/Gregorio Pulse Ox Last 24 Hr 98 F-99.5 F 46-72 14-18 114-138/58-80 95-96 GENERAL: awake, following commands, no acute distress HEAD: NC/AT EYES: PERRL, EOMI ENT: Moist mucous membranes. maxillary lip wound (hemostatic) NECK: supple LUNGS: b/l coarse breath sounds throughout with good air entry HEART: regular rhythm, bradycardic rate, no murmur appreciated ABDOMEN: Soft, protuberant, edematous, mild distended, normoactive bowel sounds BUE: B/l hand swelling, not likely cellulitis, sensation and ROM intact LOWER EXTREMITIES: 2+ pulses, warm, well-perfused NEUROLOGICAL: following commands, moves all extremities spontaneously, hoarse speech s/p extubation ASSESSMENT/PLAN: The pt is a 53F with a PMH of COPD, acute/chronic EtOH abuse (several glasses of rum daily), long-term tobacco abuse, TRINH, morbid obesity, DM, HTN, hyperlipidemia, cellulites, metabolic syndrome who was transferred to ICU due to worsening respiratory failure 11/27 - Patient w/ worsening mentation and respiratory status throughout the morning. Worsening repeat ABG. Decision was made to intubate for hypercapnic/ hypoxic respiratory failure 11/28 - Vented, ABG improving 12/01 - Extubated to HFNC. OGT D/C'ed. 12/02 - +PR3, plan for kidney bx in 7d (ASA held) 12/03 - Methylprednisolone 12/04 - Trial high flow, swallow eval 12/05 - Intubated, OGT placed, TF started; CT chest w/o for eval of ILD 12/07 - Inc. free water flush 12/08 - Cont. free water, dec thiamine, plan vent wean tomorrow 12/09 - Extubated; Inc. bowel regimen; Steroids weaned Neuro ETOH abuse, dependence -Patient no longer likely to withdraw given length of time in hospital Tobacco abuse -Educated CV Cardiology Dr Ronny Caceres -Apixaban -Digoxin --Held today for bradycardia HTN -Antihypertensives held 2/2 relative hypotension Hypervolemia w/ pulmonary congestion -Lasix 40mg IV PRN Pulm Acute hypercapnic respiratory failure due to pulmonary edema can Not R/O CHF vs copd exacerbation -Continue symbicort -Continue broncodilators -s/p intubation 11/27/2018 for acute decompensation --Extubated 12/01/2018 -Patient was on continuous BiPap, failed wean to HFNC --Intubated 12/05/2018 for hypercapnic respiratory failure -Extubated 12/09/2018, on venti mask at 50%, saturating well ILD possible on initial CT -Methylprednisolone 80mg IV daily -F/u CT chest w/o evidence of ILD GI Nutrition -Pend speech/swallow eval for PO intake -Thiamine, folate, B12 daily -Bowel regimen: docusate, senna, miralax, bisacodyl GI Ppx -Pepcid PITO -Avoid nephrotoxic agents -Nephrology consulted -Improving Hyperkalemia -Resolved Hypernatremia -Improving, will encourage PO intake when cleared Heme DVT Ppx: scds, eliquis ID BLE Cellulitis -Not likely infectious in etiology -s/p Abx course -no further abx at this time Endo DM -BGM ACHS -ISS increased on 12/03 01/03 poor glycemic control Morbid obesity -Educated about low calories diet , losing weight , daily exercise LTD Bills- 11/25/2018 PIV Dispo: Patient continues to require ICU level of care. Visit type - Emergency Visit Emergency Visit: Yes ED Registration Date: 11/23/18 Care time: The patient presented to the Emergency Department on the above date and was hospitalized for further evaluation of their emergent condition. - New Patient This patient is new to me today: No - Critical Care Critical Care patient: Yes Total Critical Care Time (in minutes): 35 Critical Care Statement: The care of this patient involved high complexity decision making to prevent further life threatening deterioration of the patient 's condition and/or to evaluate & treat vital organ system(s) failure or risk of failure.
[2018-12-09] MEDS: ALBUTEROL SO4 2.5/IPRATROPIUM 0.5 INH SOL 3 ML VIAL.NEB. NEB SCH ×3 (07:50→21:00)
[2018-12-09] MEDS: methylPREDNISolone NA SUCC 40 MG/1 ML VIAL IVPUSH SCH ×2 (09:18→12:43)
[2018-12-09] MEDS: PANTOPRAZOLE SODIUM 40 MG VIAL IVPUSH SCH (09:18)
[2018-12-09] MEDS: GABAPENTIN 100 MG CAPSULE (FP) PO SCH (09:19)
[2018-12-09] MEDS: APIXABAN 5 MG TABLET PO SCH ×2 (09:20→21:38)
[2018-12-09] MEDS: CYANOCOBALAMIN (VITAMIN B-12) 100 MCG TABLET PO SCH (09:20)
[2018-12-09] MEDS: FOLIC ACID 1 MG TABLET (FP) PO SCH (09:20)
[2018-12-09] MEDS: MULTIVITAMINS (DAILY MVI) TABLET (FP) PO SCH (09:20)
[2018-12-09] MEDS: CHLORHEXIDINE GLUCONATE 0.12% 15ML CUP MM SCH ×2 (09:30→21:39)
[2018-12-09] MEDS: POLYETHYLENE GLYCOL 3350 119 GM BTL PO SCH ×2 (09:32→21:57)
[2018-12-09] MEDS: THIAMINE HCL 200 MG/2 ML VIAL IVPB SCH (09:34)
--- NOTE | 2018-12-09 10:52 | PN ---
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 (short form) - Note 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: reintubated last week Events noted spoke with ICU team Pt is awake, off sedation- on CPAP trial most likely to be extubated today responding to commands Vital Signs - 24 hr 12/08/18 12/08/18 12/08/18 11:10 11:40 12:00 Temperature Pulse Rate 68 72 Respiratory 15 18 Rate Blood Pressure 119/58 L O2 Sat by Pulse Oximetry (%) 12/08/18 12/08/18 12/08/18 14:00 14:26 16:00 Temperature 98.8 F Pulse Rate 72 58 L Respiratory 18 14 14 Rate Blood Pressure 119/58 L 132/65 O2 Sat by Pulse Oximetry (%) 12/08/18 12/08/18 12/08/18 16:38 18:00 18:38 Temperature 98.0 F Pulse Rate 53 L Respiratory 14 14 14 Rate Blood Pressure 118/63 O2 Sat by Pulse Oximetry (%) 12/08/18 12/08/18 12/08/18 18:42 19:41 21:35 Temperature Pulse Rate 58 L Respiratory 14 14 14 Rate Blood Pressure 118/63 O2 Sat by Pulse 96 96 Oximetry (%) 12/08/18 12/09/18 12/09/18 22:00 00:00 00:25 Temperature 98 F Pulse Rate 56 L 50 L Respiratory 14 14 15 Rate Blood Pressure 114/60 136/69 O2 Sat by Pulse Oximetry (%) 12/09/18 12/09/18 12/09/18 02:00 03:19 04:00 Temperature 98.6 F Pulse Rate 49 L 46 L Respiratory 14 14 14 Rate Blood Pressure 138/71 135/80 O2 Sat by Pulse Oximetry (%) 12/09/18 12/09/18 12/09/18 06:00 06:28 08:00 Temperature 98.4 F Pulse Rate 46 L 50 L Respiratory 14 14 14 Rate Blood Pressure 131/66 148/71 O2 Sat by Pulse Oximetry (%) 12/09/18 12/09/18 12/09/18 08:30 08:31 10:00 Temperature 98.9 F Pulse Rate 51 L 50 L Respiratory 14 14 Rate Blood Pressure 149/71 O2 Sat by Pulse 98 Oximetry (%) Current Medications Generic Name Dose Route Start Last Admin Trade Name Freq PRN Reason Stop Dose Admin Albuterol/Ipratropium 1 amp 12/06/18 14:00 12/09/18 07:50 Duoneb - NEB 1 amp RTID [facility] Administration Apixaban 5 mg 11/24/18 10:00 12/09/18 09:20 Eliquis - PO 5 mg BID [facility] Administration Budesonide/Formoterol Fumarate 1 puff 11/24/18 10:00 12/08/18 11:13 Symbicort 160/4.5mcg - IH Not Given DAILY [facility] Chlorhexidine Gluconate 15 ml 12/08/18 11:45 12/08/18 21:32 Peridex - MM 15 ml BID [facility] Administration Cyanocobalamin 100 mcg 12/05/18 13:00 12/09/18 09:20 Vitamin B12 - PO 100 mcg DAILY [facility] Administration Digoxin 0.125 mg 12/02/18 12:15 12/08/18 11:10 Lanoxin Injection - IVPUSH 0.125 mg DAILY [facility] Administration Docusate Sodium 300 mg 12/06/18 22:00 12/08/18 21:31 Colace Liquid - NGT 300 mg HS [facility] Administration Folic Acid 1 mg 12/05/18 14:15 12/09/18 09:20 Folic Acid - PO 1 mg DAILY [facility] Administration Gabapentin 100 mg 11/24/18 10:00 12/09/18 09:19 Neurontin - PO 100 mg DAILY [facility] Administration Fentanyl 500 mcg/ Dextrose 100 mls @ 10 mls/hr 12/05/18 12:45 12/08/18 17:35 IVPB 50 mcg/hr TITR [facility] 10 mls/hr Titration Protocol 50 MCG/HR Propofol 1,000,000 mcg in 100 mls @ 6.954 mls/hr 12/05/18 12:45 12/09/18 09: 59 Diprivan - IVPB 0 mcg/kg/min TITR [facility] 0 mls/hr Titration Protocol 10 MCG/KG/MIN Insulin Aspart 1 vial 12/03/18 10:32 12/09/18 06:19 Novolog Vial Sliding Scale - SQ 4 units ACHS [facility] Administration Protocol Insulin Detemir 14 units 12/07/18 22:00 12/08/18 21:35 Levemir Vial SQ 14 units HS [facility] Administration Methylprednisolone Sodium Succinate 80 mg 12/05/18 10:00 12/09/18 09:18 Solu-Medrol - IVPUSH 80 mg DAILY [facility] Administration Metoprolol Tartrate 5 mg 11/28/18 21:33 12/02/18 06:06 Lopressor Injection - IVPUSH 5 mg Q4H PRN Administration HR >120 Multivitamins/Minerals/Vitamin C 1 tab 11/24/18 10:00 12/09/18 09:20 Tab-A-Vit - PO 1 tab DAILY [facility] Administration Pantoprazole Sodium 40 mg 12/02/18 22:00 12/09/18 09:18 Protonix Iv IVPUSH 40 mg BID [facility] Administration Polyethylene Glycol 17 gm 12/09/18 10:00 12/09/18 09:32 Miralax (For Daily Use) - PO 17 grams BID [facility] Administration Saliva Substitute 1 applic 12/05/18 06:36 12/05/18 07:08 Mouthkote Solution - MM 1 applic Q2H PRN Administration COUGH Senna 8.8 mg 12/09/18 22:00 Senna Oral Solution - PO HS [facility] Thiamine HCl 200 mg 12/09/18 10:00 12/09/18 09:34 Vitamin B1 Injection - IVPB 200 mg DAILY [facility] Administration Laboratory Results - last 24 hr 12/08/18 12/08/18 12/09/18 13:21 17:00 05:15 WBC 14.7 H RBC 4.31 Hgb 14.1 Hct 44.6 MCV 103.4 H MCH 32.7 MCHC 31.6 L RDW 15.6 Plt Count 65 L MPV 11.4 H Absolute Neuts (auto) 12.8 H Neutrophils % No Result Required. Lymphocytes % No Result Required. Nucleated RBC % 0 Puncture Site ABG pH ABG pCO2 at Pt Temp ABG pO2 at Pt Temp ABG HCO3 ABG O2 Sat (Measured) ABG O2 Content ABG Base Excess Mendoza Test O2 Delivery Device Oxygen Flow Rate Vent Mode Vent Rate PEEP Pressure Support Vent Sodium Potassium Chloride Carbon Dioxide Anion Gap BUN Creatinine Creat Clearance w eGFR POC Glucometer 180.94509 223.00166 Random Glucose Calcium Phosphorus Magnesium Total Bilirubin AST ALT Alkaline Phosphatase Total Protein Albumin 12/09/18 12/09/18 05:15 06:00 WBC RBC Hgb Hct MCV MCH MCHC RDW Plt Count MPV Absolute Neuts (auto) Neutrophils % Lymphocytes % Nucleated RBC % Puncture Site Left radial ABG pH 7.37 ABG pCO2 at Pt Temp 65.3 H* ABG pO2 at Pt Temp 79.0 L ABG HCO3 37.0 H ABG O2 Sat (Measured) 94.8 ABG O2 Content 20.9 ABG Base Excess 9.0 H Mendoza Test Positive O2 Delivery Device Vent Oxygen Flow Rate 45 Vent Mode A/c Vent Rate 14 PEEP 8.0 Pressure Support Vent 450 Sodium 153 H Potassium 4.7 Chloride 112 H Carbon Dioxide 40 H Anion Gap 1 L BUN 68 H Creatinine 1.4 H Creat Clearance w eGFR 39.19 POC Glucometer Random Glucose 174 H Calcium 8.5 Phosphorus 4.2 Magnesium 2.5 H Total Bilirubin 0.7 AST 19 ALT 25 Alkaline Phosphatase 99 Total Protein 5.3 L Albumin 2.2 L awake S1 S2 RRR Lungs decreased breath sounds Abd- soft, NT,obese, ND edema +decreased PLAN In ICU - monitor O2 sat CPAP weaning- extubate as tolerated renal function better heart rate is controlled on IV solumedrol pt clinically improving Problem List - Problems (1) Acute on chronic respiratory failure with hypoxia and hypercapnia Code(s): J96.21 - ACUTE AND CHRONIC RESPIRATORY FAILURE WITH HYPOXIA; J96.22 - ACUTE AND CHRONIC RESPIRATORY FAILURE WITH HYPERCAPNIA (2) Acute renal failure Code(s): N17.9 - ACUTE KIDNEY FAILURE, UNSPECIFIED (3) Acute respiratory failure with hypoxia and hypercapnia Code(s): J96.01 - ACUTE RESPIRATORY FAILURE WITH HYPOXIA; J96.02 - ACUTE RESPIRATORY FAILURE WITH HYPERCAPNIA (4) Alcoholism Code(s): F10.20 - ALCOHOL DEPENDENCE, UNCOMPLICATED (5) Atrial flutter Code(s): I48.92 - UNSPECIFIED ATRIAL FLUTTER Qualifiers: Atrial flutter type: unspecified Qualified Code(s): I48.92 - Unspecified atrial flutter (6) Bilateral lower extremity edema Code(s): R60.0 - LOCALIZED EDEMA
--- NOTE | 2018-12-09 12:00 | PN ---
Teaching Attending Note Name of Resident: Heriberto Urena ATTENDING PHYSICIAN STATEMENT I saw and evaluated the patient. I reviewed the resident's note and discussed the case with the resident. I agree with the resident's findings and plan as documented. SUBJECTIVE: Pt seen and examined in the ICU. Intubated, awake following commands. Placed on CPAP/PS with good TV, RR and subsequently extubated to ventimask during rounds. OBJECTIVE: Vital Signs Period Temp Pulse Resp BP Sys/Gregorio Pulse Ox Last 24 Hr 98 F-98.9 F 46-72 14-18 114-149/58-80 96-100 Intake & Output 12/06/18 12/07/18 12/08/18 12/09/18 23:59 23:59 23:59 23:59 Intake Total 3256 4162 3014 1800 Output Total 2200 2800 2000 450 Balance 1056 1362 1014 1350 Weight 115.938 kg 113.511 kg 113.988 kg 113.988 kg Gen: extubated Heart: RRR Lung: decreased breath sounds at the bases Abd: soft, obese Ext: less edema CBC, BMP 12/09/18 05:15 12/09/18 05:15 Active Medications Albuterol/Ipratropium (Duoneb -) 1 amp NEB RTID [facility] Last Admin: 12/09/18 07:50 Dose: 1 amp Apixaban (Eliquis -) 5 mg PO BID [facility] Last Admin: 12/09/18 09:20 Dose: 5 mg Budesonide/Formoterol Fumarate (Symbicort 160/4.5mcg -) 1 puff IH DAILY [facility] Last Admin: 12/08/18 11:13 Dose: Not Given Chlorhexidine Gluconate (Peridex -) 15 ml MM BID [facility] Last Admin: 12/08/18 21:32 Dose: 15 ml Cyanocobalamin (Vitamin B12 -) 100 mcg PO DAILY [facility] Last Admin: 12/09/18 09:20 Dose: 100 mcg Digoxin (Lanoxin Injection -) 0.125 mg IVPUSH DAILY [facility] Last Admin: 12/08/18 11:10 Dose: 0.125 mg Docusate Sodium (Colace Liquid -) 300 mg NGT HS [facility] Last Admin: 12/08/18 21:31 Dose: 300 mg Folic Acid (Folic Acid -) 1 mg PO DAILY [facility] Last Admin: 12/09/18 09:20 Dose: 1 mg Gabapentin (Neurontin -) 100 mg PO DAILY [facility] Last Admin: 12/09/18 09:19 Dose: 100 mg Fentanyl 500 mcg/ Dextrose 100 mls @ 10 mls/hr IVPB TITR [facility]; Protocol Last Titration: 12/08/18 17:35 Dose: 50 mcg/hr, 10 mls/hr Propofol (Diprivan -) 1,000,000 mcg in 100 mls @ 6.954 mls/hr IVPB TITR [facility]; Protocol Last Titration: 12/09/18 09:59 Dose: 0 mcg/kg/min, 0 mls/hr Famotidine/Sodium Chloride (Pepcid 20 Mg Premixed Ivpb -) 20 mg in 50 mls @ 100 mls/hr IVPB DAILY [facility] Insulin Aspart (Novolog Vial Sliding Scale -) 1 vial SQ ACHS [facility]; Protocol Last Admin: 12/09/18 06:19 Dose: 4 units Insulin Detemir (Levemir Vial) 14 units SQ HS [facility] Last Admin: 12/08/18 21:35 Dose: 14 units Methylprednisolone Sodium Succinate (Solu-Medrol -) 60 mg IVPUSH DAILY [facility] Metoprolol Tartrate (Lopressor Injection -) 5 mg IVPUSH Q4H PRN PRN Reason: HR >120 Last Admin: 12/02/18 06:06 Dose: 5 mg Multivitamins/Minerals/Vitamin C (Tab-A-Vit -) 1 tab PO DAILY [facility] Last Admin: 12/09/18 09:20 Dose: 1 tab Polyethylene Glycol (Miralax (For Daily Use) -) 17 gm PO BID [facility] Last Admin: 12/09/18 09:32 Dose: 17 grams Saliva Substitute (Mouthkote Solution -) 1 applic MM Q2H PRN PRN Reason: COUGH Last Admin: 12/05/18 07:08 Dose: 1 applic Senna (Senna Oral Solution -) 8.8 mg PO HS [facility] Thiamine HCl (Vitamin B1 Injection -) 200 mg IVPB DAILY [facility] Last Admin: 12/09/18 09:34 Dose: 200 mg ASSESSMENT AND PLAN: Acute on Chronic Hypoxic and Hypercapneic Respiratory Failure Acute COPD Exacerbation Morbid Obesity Obstructive Sleep Apnea/Obesity Hypoventilation Syndrome Suspect Right Heart Failure Volume Overload Mediastinal Lymphadenopathy Atrial Flutter with RVR Cellulitis Acute Kidney Injury Alcohol Abuse - pt extubated - medrol taper - inhaled bronchodilators - lasix as needed - completed antibiotics - rate controlled - continue anticoagulation - monitor urine output, creatinine - taper FiO2 to keep Spo2 >90% - DVT/GI prophylaxis - continue ICU monitoring critical care time spent in reviewing chart, evaluating patient and formulating plan 35 min
[2018-12-09] MEDS: DIGOXIN 0.5 MG/2 ML AMPUL IVPUSH SCH (12:05)
[2018-12-09 12:09] LABS: MACROCYTOSIS 1+
[2018-12-09] MEDS: BUDESONIDE/FORMETEROL FUMARATE 160/4.5 mcg INHALER IH SCH (12:25)
--- NOTE | 2018-12-09 12:36 | CONSULT ---
Admitting History and Physical - Primary Care Physician PCP: Brown Castañeda - Admission History of Present Illness: 53 YOF with h/o COPD (placed on steroid course 2 days ago without relief) acute/ chronic alcoholism (several glasses of rum daily), long-term cigarette smoker, sleep apnea, morbid obesity, DM, HTN, hyperlipidemia, cellulites, metabolic syndrome, who transferred to [facility] due to respiratory failure. Intubated on 11/27- extubated 12/01. Reintubated 12/05 and extubated today. History Source: Medical Record Limitations to Obtaining History: Clinical Condition - Past Medical History Cardiovascular: Yes: HTN Pulmonary: Yes: COPD, Sleep Apnea (r/o (morbid obesity; COPD)) ...: No Endocrine: Yes: Diabetes Mellitus - Past Surgical History Past Surgical History: Yes: Cholecystectomy Additional Past Surgical History: D/C - Smoking History Smoking history: Current every day smoker Aproximately how many cigarettes per day: 3 - Alcohol/Substance Use Hx Alcohol Use: Yes (4 glasses of Rum) History of Substance Use: reports: None - Social History ADL: Independent History of Recent Travel: No History - Admission Reason For Visit: TACHYCARDIA,ACUTE EXCERBATION OF CHRONIC - Diagnostics X-ray: Report Reviewed - General Mental Status: Awake and Alert (Wants to go home. Not oriented .), Able to Follow Commands, Vague Attention: Distractible, Mild Impairment Ability to Follow Directions: Fair Head/Neck Control: Fair - Hearing Hearing: Normal Speech Evaluation - Communication Primary Language: KITTITIAN Communication: Yes: Simple Responses - Speech Production Able to Make Needs Known: Yes: Moderately Impaired Intelligibility: Yes: Moderately Impaired - Speech Characteristics Voice Loudness: Mildly Soft/Quiet, Moderately Soft/Quiet Voice Pitch: Yes: Mildly Low Voice Phonatory-based Quality: Yes: Hoarse, Weak, Dysphonia Speech Pattern: Impaired Nasal Resonance: Normal - Language/Auditory Comprehension Follows: Yes: 1 Stage Simple Commands - Swallow Evaluation/Bedside Assessment Current Nutritional Intake: NPO Dentition: Yes: Adequate Facial Symmetry at Rest: Symmetrical Lingual Movement: Symmetric Laryngeal Movement: Unable to Palpate Recommendations - Speech Evaluation, Impression/Plan Impression: Moderate Dysphonia s/p extubation x2. Vocal cords likely edematous, extubated today. Verbal, not oriented fully yet. Postextubation dysphagia. - Disposition Discharge to: To be Determined - Dysphagia Impressions/Plan Swallowing Skills: Impaired (PO trials not given due to high risk of aspiration. ) Dysphagia Impressions: Severe Impairment, Risk of Aspiration *Silent aspiration: cannot be R/O at bedside Recommendations: Other (NPO including medication. To reassess 12/10) - Recommendations Diet Consistency: NPO Liquids: NPO
[2018-12-09 14:15] LABS: ATYPICAL pANCA <1:20 titer (Neg:<1:20); C-ANCA <1:20 titer (Neg:<1:20)
[2018-12-09] MEDS: DEXTROSE 5%-WATER - 1,000 ML IV SCH (16:22)
--- NOTE | 2018-12-09 16:40 | PN ---
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, Physician History of Present Illness: Pt seen and examined at bedside. She is now extubated. She is awake but not very interactive. - Current Medication List Current Medications: Active Medications Albuterol/Ipratropium (Duoneb -) 1 amp NEB RTID [facility] Last Admin: 12/09/18 14:45 Dose: 1 amp Apixaban (Eliquis -) 5 mg PO BID [facility] Last Admin: 12/09/18 09:20 Dose: 5 mg Budesonide/Formoterol Fumarate (Symbicort 160/4.5mcg -) 1 puff IH DAILY [facility] Last Admin: 12/09/18 12:25 Dose: Not Given Chlorhexidine Gluconate (Peridex -) 15 ml MM BID [facility] Last Admin: 12/09/18 09:30 Dose: 15 ml Cyanocobalamin (Vitamin B12 -) 100 mcg PO DAILY [facility] Last Admin: 12/09/18 09:20 Dose: 100 mcg Digoxin (Lanoxin Injection -) 0.125 mg IVPUSH DAILY [facility] Last Admin: 12/09/18 12:05 Dose: 0.125 mg Docusate Sodium (Colace Liquid -) 300 mg NGT HS [facility] Last Admin: 12/08/18 21:31 Dose: 300 mg Folic Acid (Folic Acid -) 1 mg PO DAILY [facility] Last Admin: 12/09/18 09:20 Dose: 1 mg Gabapentin (Neurontin -) 100 mg PO DAILY [facility] Last Admin: 12/09/18 09:19 Dose: 100 mg Famotidine/Sodium Chloride (Pepcid 20 Mg Premixed Ivpb -) 20 mg in 50 mls @ 100 mls/hr IVPB DAILY [facility] Dextrose (D5w -) 1,000 mls @ 42 mls/hr IV ASDIR [facility] Last Admin: 12/09/18 16:22 Dose: 42 mls/hr Insulin Aspart (Novolog Vial Sliding Scale -) 1 vial SQ ACHS [facility]; Protocol Last Admin: 12/09/18 12:25 Dose: Not Given Insulin Detemir (Levemir Vial) 14 units SQ HS [facility] Last Admin: 12/08/18 21:35 Dose: 14 units Methylprednisolone Sodium Succinate (Solu-Medrol -) 60 mg IVPUSH DAILY [facility] Last Admin: 12/09/18 12:43 Dose: Not Given Metoprolol Tartrate (Lopressor Injection -) 5 mg IVPUSH Q4H PRN PRN Reason: HR >120 Last Admin: 12/02/18 06:06 Dose: 5 mg Multivitamins/Minerals/Vitamin C (Tab-A-Vit -) 1 tab PO DAILY [facility] Last Admin: 12/09/18 09:20 Dose: 1 tab Polyethylene Glycol (Miralax (For Daily Use) -) 17 gm PO BID [facility] Last Admin: 12/09/18 09:32 Dose: 17 grams Saliva Substitute (Mouthkote Solution -) 1 applic MM Q2H PRN PRN Reason: COUGH Last Admin: 12/05/18 07:08 Dose: 1 applic Senna (Senna Oral Solution -) 8.8 mg PO HS [facility] Thiamine HCl (Vitamin B1 Injection -) 200 mg IVPB DAILY [facility] Last Admin: 12/09/18 09:34 Dose: 200 mg - Objective Vital Signs: Vital Signs Temperature 99.7 F H 12/09/18 14:00 Pulse Rate 82 12/09/18 14:00 Respiratory Rate 15 12/09/18 14:00 Blood Pressure 153/74 12/09/18 14:00 O2 Sat by Pulse Oximetry (%) 100 12/09/18 10:51 Constitutional: Yes: Calm Eyes: Yes: Conjunctiva Clear HENT: Yes: Atraumatic Cardiovascular: Yes: S1, S2 Respiratory: Yes: On Venti-Mask Gastrointestinal: Yes: Soft, Abdomen, Obese Genitourinary: Yes: Bills Present Musculoskeletal: Yes: Muscle Weakness Edema: Yes Neurological: Yes: Other (awake) Labs: CBC, BMP 12/09/18 05:15 12/09/18 05:15 INR, PTT INR 1.13 (0.83-1.09) H 11/23/18 16:40 Problem List - Problems (1) Hyperkalemia Code(s): E87.5 - HYPERKALEMIA (2) Acute on chronic respiratory failure with hypoxia and hypercapnia Code(s): J96.21 - ACUTE AND CHRONIC RESPIRATORY FAILURE WITH HYPOXIA; J96.22 - ACUTE AND CHRONIC RESPIRATORY FAILURE WITH HYPERCAPNIA (3) Acute renal failure Code(s): N17.9 - ACUTE KIDNEY FAILURE, UNSPECIFIED (4) Alcoholism Code(s): F10.20 - ALCOHOL DEPENDENCE, UNCOMPLICATED (5) Atrial flutter Code(s): I48.92 - UNSPECIFIED ATRIAL FLUTTER Qualifiers: Atrial flutter type: unspecified Qualified Code(s): I48.92 - Unspecified atrial flutter (6) Bilateral lower extremity edema Code(s): R60.0 - LOCALIZED EDEMA (7) COPD exacerbation Code(s): J44.1 - CHRONIC OBSTRUCTIVE PULMONARY DISEASE W (ACUTE) EXACERBATION Assessment/Plan Current Medications Generic Name Dose Route Start Last Admin Trade Name Freq PRN Reason Stop Dose Admin Albuterol/Ipratropium 1 amp 12/06/18 14:00 12/09/18 14:45 Duoneb - NEB 1 amp RTID [facility] Administration Apixaban 5 mg 11/24/18 10:00 12/09/18 09:20 Eliquis - PO 5 mg BID [facility] Administration Budesonide/Formoterol Fumarate 1 puff 11/24/18 10:00 12/09/18 12:25 Symbicort 160/4.5mcg - IH Not Given DAILY [facility] Chlorhexidine Gluconate 15 ml 12/08/18 11:45 12/09/18 09:30 Peridex - MM 15 ml BID [facility] Administration Cyanocobalamin 100 mcg 12/05/18 13:00 12/09/18 09:20 Vitamin B12 - PO 100 mcg DAILY [facility] Administration Digoxin 0.125 mg 12/02/18 12:15 12/09/18 12:05 Lanoxin Injection - IVPUSH 0.125 mg DAILY [facility] Administration Docusate Sodium 300 mg 12/06/18 22:00 12/08/18 21:31 Colace Liquid - NGT 300 mg HS [facility] Administration Folic Acid 1 mg 12/05/18 14:15 12/09/18 09:20 Folic Acid - PO 1 mg DAILY [facility] Administration Gabapentin 100 mg 11/24/18 10:00 12/09/18 09:19 Neurontin - PO 100 mg DAILY [facility] Administration Famotidine/Sodium Chloride 20 mg in 50 mls @ 100 mls/hr 12/10/18 10:00 Pepcid 20 Mg Premixed Ivpb - IVPB DAILY [facility] Dextrose 1,000 mls @ 42 mls/hr 12/09/18 16:00 12/09/18 16:22 D5w - IV 42 mls/hr ASDIR [facility] Administration Insulin Aspart 1 vial 12/03/18 10:32 12/09/18 12:25 Novolog Vial Sliding Scale - SQ Not Given ACHS [facility] Protocol Insulin Detemir 14 units 12/07/18 22:00 12/08/18 21:35 Levemir Vial SQ 14 units HS [facility] Administration Methylprednisolone Sodium Succinate 60 mg 12/09/18 12:00 12/09/18 12:43 Solu-Medrol - IVPUSH Not Given DAILY [facility] Metoprolol Tartrate 5 mg 11/28/18 21:33 12/02/18 06:06 Lopressor Injection - IVPUSH 5 mg Q4H PRN Administration HR >120 Multivitamins/Minerals/Vitamin C 1 tab 11/24/18 10:00 12/09/18 09:20 Tab-A-Vit - PO 1 tab DAILY [facility] Administration Polyethylene Glycol 17 gm 12/09/18 10:00 12/09/18 09:32 Miralax (For Daily Use) - PO 17 grams BID [facility] Administration Saliva Substitute 1 applic 12/05/18 06:36 12/05/18 07:08 Mouthkote Solution - MM 1 applic Q2H PRN Administration COUGH Senna 8.8 mg 12/09/18 22:00 Senna Oral Solution - PO HS [facility] Thiamine HCl 200 mg 12/09/18 10:00 12/09/18 09:34 Vitamin B1 Injection - IVPB 200 mg DAILY [facility] Administration Impression 1. PITO 2. hyperkalemia 3. a-flutter 4. resp failure requiring bipap 5. DM 6. HTN 7. active smoker 8. etoh abuse 9. obesity 10. interstitial lung disease on CT scan 11. resp acidosis 12. COPD 13. positive pr3 14. hypernatremia Plan - monitor renal function - ua neg for blood - rheum follow up - follow repeat anca - monitor pulse ox - pt off of feeds - can give d5w at 40 cc - stop once feeds started - asa on hold - will follow closely
[2018-12-09] MEDS: METOPROLOL TARTRATE 5 MG/5 ML VIAL IVPUSH PRN (18:52)
[2018-12-09] MEDS ORDERED: PT OWN MED DRAWER 7, Y5N ONE (20:49)
[2018-12-09] MEDS: DOCUSATE NA 100 MG/10 ML UNIT-DOSE CUPS NGT SCH (21:38)
[2018-12-09] MEDS: INSULIN (LEVEMIR) 100 UNITS/ML UNITS SQ SCH (21:56)
[2018-12-09] MEDS: SENNOSIDES 8.8 MG/5 ML BULK BOTTLE PO SCH (22:30)
[2018-12-10] MEDS: METOPROLOL TARTRATE 5 MG/5 ML VIAL IVPUSH PRN ×3 (00:25→16:30)
[2018-12-10] MEDS ORDERED: HEMOQUE TEST 1 EACH EACH ONE (02:46)
[2018-12-10] MEDS: INSULIN SLIDING SCALE (NOVOLOG) 1 VIAL SQ SCH ×4 (06:19→21:44)
[2018-12-10 06:30] LABS: ARTERIAL BLD GAS O2 SATURATION 91.3 % (90-98.9); ARTERIAL BLOOD GAS BASE EXCESS 10.3 meq/l (-2-2); ARTERIAL BLOOD GAS PCO2 50.9 mmHg (35-45); ARTERIAL BLOOD GAS PO2 61.4 mmHg (80-100); ARTERIAL BLOOD GAS pH 7.46 (7.35-7.45)
[2018-12-10 06:55] LABS: BASO % 0.3 % (0-2.0); EOS % 2.6 % (0-4.5); HEMATOCRIT 44.2 % (32.4-45.2); HEMOGLOBIN 14.8 GM/dL (10.7-15.3); MCH 33.5 pg (25.7-33.7); MCHC 33.5 g/dl (32.0-36.0); MEAN CELL VOLUME 99.8 fl (80-96); MEAN PLT VOLUME 12.4 fl (7.5-11.1); NEUT % 83.1 % (42.8-82.8); PLATELET COUNT 57 K/MM3 (134-434); RBC 4.43 M/mm3 (3.60-5.2); RDW 15.2 % (11.6-15.6); WHITE BLOOD COUNT 13.4 K/mm3 (4.0-10.0)
[2018-12-10 06:57] LABS: ALLENS TEST POSITIVE
[2018-12-10 07:17] LABS: ALBUMIN 2.3 g/dl (3.4-5.0); ALK PHOS 96 U/L (45-117); ANION GAP 2 MMOL/L (8-16); BILIRUBIN,TOTAL 1.2 mg/dL (0.2-1); BLOOD UREA NITROGEN 54 mg/dL (7-18); CALCIUM 8.9 mg/dL (8.5-10.1); CHLORIDE 112 mmol/L (98-107); CO2 37 mmol/L (21-32); CREATININE 1.2 mg/dL (0.55-1.3); GLUCOSE,RANDOM 143 mg/dL (74-106); MAGNESIUM 2.2 mg/dL (1.8-2.4); PHOSPHOROUS 2.3 mg/dL (2.5-4.9); POTASSIUM 3.9 mmol/L (3.5-5.1); SGOT/AST 33 U/L (15-37); SGPT/ALT 29 U/L (13-61); SODIUM 150 mmol/L (136-145); TOT PROT 5.2 g/dl (6.4-8.2)
[2018-12-10] MEDS ORDERED: DIGOXIN 0.5 MG/2 ML AMPUL IVPUSH ONE (07:26)
[2018-12-10] MEDS ORDERED: PT OWN MED DRAWER 7, Y5N ONE (07:59)
[2018-12-10] MEDS: ALBUTEROL SO4 2.5/IPRATROPIUM 0.5 INH SOL 3 ML VIAL.NEB. NEB SCH (08:40)
[2018-12-10] MEDS: GABAPENTIN 100 MG CAPSULE (FP) PO SCH (08:59)
[2018-12-10] MEDS: CYANOCOBALAMIN (VITAMIN B-12) 100 MCG TABLET PO SCH (08:59)
[2018-12-10] MEDS: FOLIC ACID 1 MG TABLET (FP) PO SCH (08:59)
[2018-12-10] MEDS: APIXABAN 5 MG TABLET PO SCH ×2 (08:59→21:43)
[2018-12-10] MEDS: MULTIVITAMINS (DAILY MVI) TABLET (FP) PO SCH (08:59)
[2018-12-10] MEDS: DIGOXIN 0.5 MG/2 ML AMPUL IVPUSH SCH (09:00)
[2018-12-10] MEDS: POLYETHYLENE GLYCOL 3350 119 GM BTL PO SCH ×2 (09:00→21:45)
[2018-12-10] MEDS: methylPREDNISolone NA SUCC 40 MG/1 ML VIAL IVPUSH SCH (09:01)
[2018-12-10] MEDS: CHLORHEXIDINE GLUCONATE 0.12% 15ML CUP MM SCH ×2 (09:01→21:45)
[2018-12-10] MEDS: FAMOTIDINE 20 MG/50 ML IVPB 20 MG/50 ML MG IVPB SCH (09:01)
[2018-12-10] MEDS: BUDESONIDE/FORMETEROL FUMARATE 160/4.5 mcg INHALER IH SCH (09:02)
[2018-12-10] MEDS: THIAMINE HCL 200 MG/2 ML VIAL IVPB SCH (09:02)
--- NOTE | 2018-12-10 09:15 | PN ---
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, Physician Chief Complaint: Pt more alert; moves hands slightly on request. History of Present Illness: 53 YO white woman with h/o COPD (placed on steroid course 2 days ago without relief) acute/chronic alcoholism (several glasses of rum daily), long-term cigarette smoker, sleep apnea, morbid obesity, DM, HTN, hyperlipidemia, chronic erythema of LEs with hx cellulitis, metabolic syndrome, who is now admitted with SOB and wheezing similar to her prior COPD exacerbation. She additionally notes awakening in the middle of the night last night with visual hallucinations. She additionally notes abdominal swelling recently, believes she has an abdominal infection but does not know what kind. Denies h/o heart arrhythmia. She has noticed her lips are more blue than normal. - Current Medication List Current Medications: Active Medications Albuterol/Ipratropium (Duoneb -) 1 amp NEB RTID [facility] Last Admin: 12/10/18 08:40 Dose: 1 amp Apixaban (Eliquis -) 5 mg PO BID [facility] Last Admin: 12/10/18 08:59 Dose: 5 mg Budesonide/Formoterol Fumarate (Symbicort 160/4.5mcg -) 1 puff IH DAILY [facility] Last Admin: 12/10/18 09:02 Dose: Not Given Chlorhexidine Gluconate (Peridex -) 15 ml MM BID [facility] Last Admin: 12/10/18 09:01 Dose: 15 ml Cyanocobalamin (Vitamin B12 -) 100 mcg PO DAILY [facility] Last Admin: 12/10/18 08:59 Dose: 100 mcg Digoxin (Lanoxin Injection -) 0.125 mg IVPUSH DAILY [facility] Last Admin: 12/10/18 09:00 Dose: Not Given Docusate Sodium (Colace Liquid -) 300 mg NGT HS [facility] Last Admin: 12/09/18 21:38 Dose: 300 mg Folic Acid (Folic Acid -) 1 mg PO DAILY [facility] Last Admin: 12/10/18 08:59 Dose: 1 mg Gabapentin (Neurontin -) 100 mg PO DAILY [facility] Last Admin: 12/10/18 08:59 Dose: 100 mg Famotidine/Sodium Chloride (Pepcid 20 Mg Premixed Ivpb -) 20 mg in 50 mls @ 100 mls/hr IVPB DAILY [facility] Last Admin: 12/10/18 09:01 Dose: 100 mls/hr Dextrose (D5w -) 1,000 mls @ 42 mls/hr IV ASDIR [facility] Last Admin: 12/09/18 16:22 Dose: 42 mls/hr Insulin Aspart (Novolog Vial Sliding Scale -) 1 vial SQ [facility]; Protocol Last Admin: 12/10/18 06:19 Dose: 4 units Insulin Detemir (Levemir Vial) 14 units SQ [facility] Last Admin: 12/09/18 21:56 Dose: 14 units Methylprednisolone Sodium Succinate (Solu-Medrol -) 60 mg IVPUSH DAILY [facility] Last Admin: 12/10/18 09:01 Dose: 60 mg Metoprolol Tartrate (Lopressor Injection -) 5 mg IVPUSH Q4H PRN PRN Reason: HR >120 Last Admin: 12/10/18 07:32 Dose: 5 mg Multivitamins/Minerals/Vitamin C (Tab-A-Vit -) 1 tab PO DAILY [facility] Last Admin: 12/10/18 08:59 Dose: 1 tab Polyethylene Glycol (Miralax (For Daily Use) -) 17 gm PO BID [facility] Last Admin: 12/10/18 09:00 Dose: 17 grams Saliva Substitute (Mouthkote Solution -) 1 applic MM Q2H PRN PRN Reason: COUGH Last Admin: 12/05/18 07:08 Dose: 1 applic Senna (Senna Oral Solution -) 8.8 mg PO HS [facility] Last Admin: 12/09/18 22:30 Dose: 8.8 5ml Thiamine HCl (Vitamin B1 Injection -) 200 mg IVPB DAILY [facility] Last Admin: 12/10/18 09:02 Dose: 200 mg - Objective Vital Signs: Vital Signs Temperature 98 F 12/10/18 07:35 Pulse Rate 100 H 12/10/18 09:00 Respiratory Rate 20 12/10/18 08:46 Blood Pressure 123/91 12/10/18 08:46 O2 Sat by Pulse Oximetry (%) 94 L 12/10/18 07:35 Constitutional: Yes: Anxious, Obese Eyes: Yes: WNL HENT: Yes: Other Neck: Yes: Decreased ROM Cardiovascular: Yes: Pulse Irregular, S1 (varies in intensity) Respiratory: Yes: Diminished, Tachypnea Gastrointestinal: Yes: Soft Genitourinary: No: Anuria Musculoskeletal: Yes: Muscle Weakness Extremities: Yes: Cool Edema: No Peripheral Pulses WNL: Yes Integumentary: Yes: Venous Stasis Changes Neurological: Yes: Weakness Psychiatric: Yes: Other Labs: CBC, BMP 12/10/18 05:30 12/10/18 05:30 INR, PTT INR 1.13 (0.83-1.09) H 11/23/18 16:40 - ....Imaging Chest X-ray: Image Reviewed (decreased congestion) EKG: Image Reviewed (atrial flutter with 4:1 AV block) Problem List - Problems (1) Atrial flutter Assessment/Plan: On diltiazem for HR control; start PO diltiazem of metoprolol. Digoxin loading has aided in controlling HR; started daily dose, which may have to be reduced to every other day.. Keep digoxin level 0.5-1.0 (level, at 1.59, was "elevated" previously). On apixaban for anticoagulation. ECHO: unable to assess LVEF; repeat when pt able to turn on left side for better windows (or get MUGA).If LVEF is significantly reduced, change diltiazem to beta nico (appears to tolerate lopressor IVP prn presently). Code(s): I48.92 - UNSPECIFIED ATRIAL FLUTTER Qualifiers: Atrial flutter type: unspecified Qualified Code(s): I48.92 - Unspecified atrial flutter (2) Morbid obesity Code(s): E66.01 - MORBID (SEVERE) OBESITY DUE TO EXCESS CALORIES (3) HTN (hypertension) Assessment/Plan: On diltiazem (start PO). F/u ECHO for LVEF, wall thickness, chamber sizes, valve status when able to position pt for better windows. Consider MUGA if unable to ottain LVEF from ECHO. Code(s): I10 - ESSENTIAL (PRIMARY) HYPERTENSION (4) Diabetes Code(s): E11.9 - TYPE 2 DIABETES MELLITUS WITHOUT COMPLICATIONS (5) Mosier cardiac risk >20% in next 10 years Code(s): Z91.89 - OTH PERSONAL RISK FACTORS, NOT ELSEWHERE CLASSIFIED (6) Alcoholism Code(s): F10.20 - ALCOHOL DEPENDENCE, UNCOMPLICATED (7) Ascites Code(s): R18.8 - OTHER ASCITES (8) Interstitial lung disease Assessment/Plan: Moderate pulmonary HTN and RV hypokinesis. R/o sarcoid. R/o sleep apnea. Code(s): J84.9 - INTERSTITIAL PULMONARY DISEASE, UNSPECIFIED (9) CHF (congestive heart failure) Assessment/Plan: Elevated BNP. F/u BUN/Cr, electrolytes, daily weight, IS and Os,. ECHO repeat for LVEF when pt better able to cooperate (and move on left side); otherwise, consder MUGA for LVEF. Control of AF/flutter HR presently with diltiazem and digoxin; replace diltiazem with beta blockers if LVEF significantly reduced. Code(s): I50.9 - HEART FAILURE, UNSPECIFIED (10) Renal dysfunction Assessment/Plan: improving status; f/u Is and Os, BUN/Cr. Code(s): N28.9 - DISORDER OF KIDNEY AND URETER, UNSPECIFIED (11) Respiratory failure Assessment/Plan: ISLD. Now extubated. Code(s): J96.90 - RESPIRATORY FAILURE, UNSP, UNSP W HYPOXIA OR HYPERCAPNIA Assessment/Plan CCU time spent: 35 minutes.
--- NOTE | 2018-12-10 09:39 | PN ---
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 (short form) - Note 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: Patient seen and examined at bedside extubated yesterday hypernatremia improving-D5W started at 42ml/hr yesterday Has no complaints Having episodes of narrow complex tachycardia to 160s-180s Vital Signs Temperature 98 F 12/10/18 07:35 Pulse Rate 100 H 12/10/18 09:00 Respiratory Rate 20 12/10/18 08:46 Blood Pressure 123/91 12/10/18 08:46 O2 Sat by Pulse Oximetry (%) 94 L 12/10/18 07:35 PE: Gen:NAD lying in bed. thinks she is at [facility]. Does not know the date Heart: Irregular tachycardic S1 S2 Lung: Scattered rhonchi Abd: soft, nontender 1+ pitting edema 12/10/18 12/10/18 05:30 05:30 WBC 13.4 H RBC 4.43 Hgb 14.8 Hct 44.2 MCV 99.8 H MCHC 33.5 RDW 15.2 Plt Count 57 L Neutrophils % 83.1 H Lymphocytes % 10.0 Monocytes % 4.0 Eosinophils % 2.6 Basophils % 0.3 Sodium 150 H Potassium 3.9 Chloride 112 H Carbon Dioxide 37 H Anion Gap 2 L BUN 54 H Creatinine 1.2 11/24/18 04:00 Blood Culture - Final Blood - Peripheral Venous NO GROWTH AFTER 5 DAYS INCUBATION 11/24/18 04:00 Blood Culture - Final Blood - Peripheral Venous NO GROWTH AFTER 5 DAYS INCUBATION 11/24/18 12:50 Urine Culture - Final Urine - Urine Clean Catch NO GROWTH OBTAINED 11/24/18 12:25 Legionella Antigen - Final Urine For Antigen Detection Streptococcus pneumoniae Antigen (M - Final 53F with multiple medical problems including COPD, alcohol abuse, TRINH, obesity, HTN, HLD, in respiratory failure. Neuro pain control frequent reorientation CV - Patient having runs of narrow complex tachycardia up to 180s episodes of SVT and A fib with RVR Cardiology consult Dr Jefferson/Mil appreciated A-fib with RVR-continue eliquis and digoxin Will start metoprolol 25mg po BID Metroprolol IV PRN HTN metoprolol Hypervolemia w/ pulmonary congestion improved Pulm Acute hypercapnic respiratory failure due to pulmonary edema Stop symbicort since has LABA and patient with tachycardia Atop Duonebs and do atrovent QID Albuterol nebs PRN only continue solumedrol 60mg IV daily ILD new diagnosed on CT continue solu-medrol High resolution chest CT done and noted GI Speech and swallow consult pending for today continue thiamine still no BM- will start more aggressive bowel regimen with Dulcolax suppositories and PO Senna/Colace Unable to swallow miralax at this time-held by RN GI Ppx Protonix PITO continues to improve Cr 1.2 today Hyperkalemia Resolved Hypernatremia Improving continue D5W @ 42ml/hr Heme DVT Ppx: scds, eliquis ID Off Abx Endo DM fingersticks for BGM ACHS ISS/Levemir Morbid obesity Dispo: Patient continues to require ICU level of care. CCTime 36 min
[2018-12-10] MEDS ORDERED: METOPROLOL TARTRATE 5 MG/5 ML VIAL IVPUSH ONE (10:33)
[2018-12-10] MEDS ORDERED: dilTIAZem HCL 50 MG/10 ML - 10 ML VIAL IVPUSH ONE (10:35)
[2018-12-10] MEDS ORDERED: dilTIAZem HCL 50 MG/10 ML - 10 ML VIAL ONE (10:35)
[2018-12-10] MEDS ORDERED: ALBUTEROL SO4 0.083% IH SOL 2.5 MG/3 ML VIAL.NEB. NEB PRN (10:43)
[2018-12-10] MEDS ORDERED: BISACODYL 5 MG TABLET.DR (FP) PO ONE (10:46)
--- NOTE | 2018-12-10 10:54 | PN ---
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 (short form) - Note 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: extubated more awake and talking , combative no distress heart rate was elevated Vital Signs - 24 hr 12/09/18 12/09/18 12/09/18 12:00 12:05 14:00 Temperature 99.7 F H Pulse Rate 93 H 92 H 82 Respiratory 17 15 Rate Blood Pressure 170/89 153/74 O2 Sat by Pulse Oximetry (%) 12/09/18 12/09/18 12/09/18 16:00 18:00 18:52 Temperature 98.0 F Pulse Rate 85 78 160 H Respiratory 21 H 25 H Rate Blood Pressure 137/67 144/71 144/71 O2 Sat by Pulse Oximetry (%) 12/09/18 12/09/18 12/09/18 19:52 20:00 20:37 Temperature 97.6 F Pulse Rate 130 H Respiratory 23 H Rate Blood Pressure 123/84 O2 Sat by Pulse 95 94 L Oximetry (%) 12/09/18 12/10/18 12/10/18 22:00 00:00 00:25 Temperature 97.4 F L Pulse Rate 133 H 132 H 165 H Respiratory 22 H 22 H Rate Blood Pressure 117/92 129/117 H 129/117 H O2 Sat by Pulse Oximetry (%) 12/10/18 12/10/18 12/10/18 02:00 04:00 06:00 Temperature 99.1 F 98.9 F Pulse Rate 133 H 124 H 130 H Respiratory 21 H 22 H 22 H Rate Blood Pressure 126/110 H 124/104 H 114/89 O2 Sat by Pulse Oximetry (%) 12/10/18 12/10/18 12/10/18 07:21 07:22 07:32 Temperature Pulse Rate 121 H 128 H Respiratory 20 Rate Blood Pressure 148/80 148/80 O2 Sat by Pulse 95 Oximetry (%) 12/10/18 12/10/18 12/10/18 07:35 07:43 08:00 Temperature 98 F Pulse Rate 100 H 92 H Respiratory 20 Rate Blood Pressure 123/91 O2 Sat by Pulse 94 L Oximetry (%) 12/10/18 12/10/18 09:00 10:00 Temperature 98.6 F Pulse Rate 100 H 90 Respiratory 20 Rate Blood Pressure 133/92 O2 Sat by Pulse Oximetry (%) Current Medications Generic Name Dose Route Start Last Admin Trade Name Freq PRN Reason Stop Dose Admin Albuterol Sulfate 1 amp 12/10/18 10:43 Ventolin 0.083% Nebulizer Soln - NEB Q6H PRN SHORT OF BREATH/WHEEZING Apixaban 5 mg 11/24/18 10:00 12/10/18 08:59 Eliquis - PO 5 mg BID [facility] Administration Bisacodyl 10 mg 12/10/18 11:00 Dulcolax Suppository - RC DAILY [facility] Chlorhexidine Gluconate 15 ml 12/08/18 11:45 12/10/18 09:01 Peridex - MM 15 ml BID [facility] Administration Cyanocobalamin 100 mcg 12/05/18 13:00 12/10/18 08:59 Vitamin B12 - PO 100 mcg DAILY [facility] Administration Digoxin 0.125 mg 12/02/18 12:15 12/10/18 09:00 Lanoxin Injection - IVPUSH Not Given DAILY [facility] Docusate Sodium 300 mg 12/06/18 22:00 12/09/18 21:38 Colace Liquid - NGT 300 mg HS [facility] Administration Folic Acid 1 mg 12/05/18 14:15 12/10/18 08:59 Folic Acid - PO 1 mg DAILY [facility] Administration Gabapentin 100 mg 11/24/18 10:00 12/10/18 08:59 Neurontin - PO 100 mg DAILY [facility] Administration Famotidine/Sodium Chloride 20 mg in 50 mls @ 100 mls/hr 12/10/18 10:00 09:01 Pepcid 20 Mg Premixed Ivpb - IVPB 100 mls/hr DAILY [facility] Administration Dextrose 1,000 mls @ 42 mls/hr 12/09/18 16:00 12/09/18 16:22 D5w - IV 42 mls/hr ASDIR [facility] Administration Insulin Aspart 1 vial 12/03/18 10:32 12/10/18 10:47 Novolog Vial Sliding Scale - SQ 4 units ACHS [facility] Administration Protocol Insulin Detemir 14 units 12/07/18 22:00 12/09/18 21:56 Levemir Vial SQ 14 units HS [facility] Administration Ipratropium [place] 1 amp 12/10/18 12:00 Atrovent 0.02% Nebulizer - NEB RQID [facility] Methylprednisolone Sodium Succinate 60 mg 12/09/18 12:00 12/10/18 09:01 Solu-Medrol - IVPUSH 60 mg DAILY [facility] Administration Metoprolol Tartrate 5 mg 11/28/18 21:33 12/10/18 07:32 Lopressor Injection - IVPUSH 5 mg Q4H PRN Administration HR >120 Metoprolol Tartrate 25 mg 12/10/18 10:45 Lopressor - PO BID [facility] Multivitamins/Minerals/Vitamin C 1 tab 11/24/18 10:00 12/10/18 08:59 Tab-A-Vit - PO 1 tab DAILY [facility] Administration Polyethylene Glycol 17 gm 12/09/18 10:00 12/10/18 09:00 Miralax (For Daily Use) - PO 17 grams BID [facility] Administration Saliva Substitute 1 applic 12/05/18 06:36 12/05/18 07:08 Mouthkote Solution - MM 1 applic Q2H PRN Administration COUGH Senna 8.8 mg 12/09/18 22:00 12/09/18 22:30 Senna Oral Solution - PO 8.8 5ml HS [facility] Administration Thiamine HCl 200 mg 12/09/18 10:00 12/10/18 09:02 Vitamin B1 Injection - IVPB 200 mg DAILY [facility] Administration Laboratory Results - last 24 hr 12/03/18 12/09/18 12/09/18 21:20 05:07 05:15 WBC RBC Hgb Hct MCV MCH MCHC RDW Plt Count MPV Absolute Neuts (auto) Total Counted 100 Neutrophils % Neutrophils % (Manual) 85.0 H Band Neutrophils % 2.0 Lymphocytes % Lymphocytes % (Manual) 9.0 Monocytes % Monocytes % (Manual) 3 L Eosinophils % Eosinophils % (Manual) 1.0 Basophils % Nucleated RBC % Macrocytosis 1+ Puncture Site ABG pH ABG pCO2 at Pt Temp ABG pO2 at Pt Temp ABG HCO3 ABG O2 Sat (Measured) ABG O2 Content ABG Base Excess Mendoza Test O2 Delivery Device Oxygen Flow Rate Sodium Potassium Chloride Carbon Dioxide Anion Gap BUN Creatinine Creat Clearance w eGFR POC Glucometer [phone] Random Glucose Calcium Phosphorus Magnesium Total Bilirubin AST ALT Alkaline Phosphatase Total Protein Albumin c-ANCA <1:20 Proteinase 3 (PR3) 46.6 H p-ANCA 1:80 H Atypical p-ANCA <1:20 Myeloperoxidase Ab <9.0 12/09/18 12/09/18 12/10/18 16:49 21:41 05:30 WBC 13.4 H RBC 4.43 Hgb 14.8 Hct 44.2 MCV 99.8 H MCH 33.5 MCHC 33.5 RDW 15.2 Plt Count 57 L MPV 12.4 H Absolute Neuts (auto) 11.1 H Total Counted Neutrophils % 83.1 H Neutrophils % (Manual) Band Neutrophils % Lymphocytes % 10.0 Lymphocytes % (Manual) Monocytes % 4.0 Monocytes % (Manual) Eosinophils % 2.6 Eosinophils % (Manual) Basophils % 0.3 Nucleated RBC % 0 Macrocytosis Puncture Site ABG pH ABG pCO2 at Pt Temp ABG pO2 at Pt Temp ABG HCO3 ABG O2 Sat (Measured) ABG O2 Content ABG Base Excess [place]za Test O2 Delivery Device Oxygen Flow Rate Sodium Potassium Chloride Carbon Dioxide Anion Gap BUN Creatinine Creat Clearance w eGFR POC Glucometer [phone] Random Glucose Calcium Phosphorus Magnesium Total Bilirubin AST ALT Alkaline Phosphatase Total Protein Albumin c-ANCA Proteinase 3 (PR3) p-ANCA Atypical p-ANCA Myeloperoxidase Ab 12/10/18 12/10/18 12/10/18 05:30 05:37 06:25 WBC RBC Hgb Hct MCV MCH MCHC RDW Plt Count MPV Absolute Neuts (auto) Total Counted Neutrophils % Neutrophils % (Manual) Band Neutrophils % Lymphocytes % Lymphocytes % (Manual) Monocytes % Monocytes % (Manual) Eosinophils % Eosinophils % (Manual) Basophils % Nucleated RBC % Macrocytosis Puncture Site Right radial ABG pH 7.46 H ABG pCO2 at Pt Temp 50.9 H D ABG pO2 at Pt Temp 61.4 L D ABG HCO3 35.8 H ABG O2 Sat (Measured) 91.3 ABG O2 Content 18.4 ABG Base Excess 10.3 H Mendoza Test Positive O2 Delivery Device N/c Oxygen Flow Rate 4l Sodium 150 H Potassium 3.9 Chloride 112 H Carbon Dioxide 37 H Anion Gap 2 L BUN 54 H Creatinine 1.2 Creat Clearance w eGFR 46.82 POC Glucometer [phone] Random Glucose 143 H Calcium 8.9 Phosphorus 2.3 L Magnesium 2.2 Total Bilirubin 1.2 H AST 33 ALT 29 Alkaline Phosphatase 96 Total Protein 5.2 L Albumin 2.3 L c-ANCA Proteinase 3 (PR3) p-ANCA Atypical p-ANCA Myeloperoxidase Ab awake S1 S2 RRR Lungs decreased breath sounds Abd- soft, NT,obese, ND edema + PLAN In ICU - monitor O2 sat BIPAP tachycardic- meds adjusted, added PO metoprolol swallow follow up on IV solumedrol pt clinically improving spoke with ICU team Problem List - Problems (1) Acute on chronic respiratory failure with hypoxia and hypercapnia Code(s): J96.21 - ACUTE AND CHRONIC RESPIRATORY FAILURE WITH HYPOXIA; J96.22 - ACUTE AND CHRONIC RESPIRATORY FAILURE WITH HYPERCAPNIA (2) Acute renal failure Code(s): N17.9 - ACUTE KIDNEY FAILURE, UNSPECIFIED (3) Acute respiratory failure with hypoxia and hypercapnia Code(s): J96.01 - ACUTE RESPIRATORY FAILURE WITH HYPOXIA; J96.02 - ACUTE RESPIRATORY FAILURE WITH HYPERCAPNIA (4) Alcoholism Code(s): F10.20 - ALCOHOL DEPENDENCE, UNCOMPLICATED (5) Atrial flutter Code(s): I48.92 - UNSPECIFIED ATRIAL FLUTTER Qualifiers: Qualified Code(s): I48.92 - Unspecified atrial flutter (6) Bilateral lower extremity edema Code(s): R60.0 - LOCALIZED EDEMA
[2018-12-10] MEDS: METOPROLOL TARTRATE 25 MG TABLET (FP) PO SCH ×2 (11:00→21:43)
[2018-12-10] MEDS: IPRATROPIUM BR 0.02% 0.5 MG/2.5 ML VIAL.NEB. NEB SCH ×3 (11:30→21:00)
--- NOTE | 2018-12-10 12:09 | PN ---
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, Physician History of Present Illness: 53 YO white woman with h/o COPD (placed on steroid course 2 days ago without relief) acute/chronic alcoholism (several glasses of rum daily), long-term cigarette smoker, sleep apnea, morbid obesity, DM, HTN, hyperlipidemia, chronic erythema of LEs with hx cellulitis, metabolic syndrome, who is now admitted with SOB and wheezing similar to her prior COPD exacerbation. She additionally notes awakening in the middle of the night last night with visual hallucinations. She additionally notes abdominal swelling recently, believes she has an abdominal infection but does not know what kind. Denies h/o heart arrhythmia. She has noticed her lips are more blue than normal. - Current Medication List Current Medications: Active Medications Albuterol Sulfate (Ventolin 0.083% Nebulizer Soln -) 1 amp NEB Q6H PRN PRN Reason: SHORT OF BREATH/WHEEZING Apixaban (Eliquis -) 5 mg PO BID [facility] Last Admin: 12/10/18 08:59 Dose: 5 mg Bisacodyl (Dulcolax Suppository -) 10 mg RC DAILY [facility] Chlorhexidine Gluconate (Peridex -) 15 ml MM BID [facility] Last Admin: 12/10/18 09:01 Dose: 15 ml Cyanocobalamin (Vitamin B12 -) 100 mcg PO DAILY [facility] Last Admin: 12/10/18 08:59 Dose: 100 mcg Digoxin (Lanoxin Injection -) 0.125 mg IVPUSH DAILY [facility] Last Admin: 12/10/18 09:00 Dose: Not Given Docusate Sodium (Colace Liquid -) 300 mg NGT HS [facility] Last Admin: 12/09/18 21:38 Dose: 300 mg Folic Acid (Folic Acid -) 1 mg PO DAILY [facility] Last Admin: 12/10/18 08:59 Dose: 1 mg Gabapentin (Neurontin -) 100 mg PO DAILY [facility] Last Admin: 12/10/18 08:59 Dose: 100 mg Famotidine/Sodium Chloride (Pepcid 20 Mg Premixed Ivpb -) 20 mg in 50 mls @ 100 mls/hr IVPB DAILY [facility] Last Admin: 12/10/18 09:01 Dose: 100 mls/hr Dextrose (D5w -) 1,000 mls @ 42 mls/hr IV ASDIR [facility] Last Admin: 12/09/18 16:22 Dose: 42 mls/hr Insulin Aspart (Novolog Vial Sliding Scale -) 1 vial SQ ACHS [facility]; Protocol Last Admin: 12/10/18 10:47 Dose: 4 units Insulin Detemir (Levemir Vial) 14 units SQ [facility] Last Admin: 12/09/18 21:56 Dose: 14 units Ipratropium [place] (Atrovent 0.02% Nebulizer -) 1 amp NEB RQID [facility] Methylprednisolone Sodium Succinate (Solu-Medrol -) 60 mg IVPUSH DAILY [facility] Last Admin: 12/10/18 09:01 Dose: 60 mg Metoprolol Tartrate (Lopressor Injection -) 5 mg IVPUSH Q4H PRN PRN Reason: HR >120 Last Admin: 12/10/18 07:32 Dose: 5 mg Metoprolol Tartrate (Lopressor -) 25 mg PO BID [facility] Multivitamins/Minerals/Vitamin C (Tab-A-Vit -) 1 tab PO DAILY [facility] Last Admin: 12/10/18 08:59 Dose: 1 tab Polyethylene Glycol (Miralax (For Daily Use) -) 17 gm PO BID [facility] Last Admin: 12/10/18 09:00 Dose: 17 grams Saliva Substitute (Mouthkote Solution -) 1 applic MM Q2H PRN PRN Reason: COUGH Last Admin: 12/05/18 07:08 Dose: 1 applic Senna (Senna Oral Solution -) 8.8 mg PO [facility] Last Admin: 12/09/18 22:30 Dose: 8.8 5ml Thiamine HCl (Vitamin B1 Injection -) 200 mg IVPB DAILY [facility] Last Admin: 12/10/18 09:02 Dose: 200 mg - Objective Vital Signs: Vital Signs Temperature 98.6 F 12/10/18 10:00 Pulse Rate 90 12/10/18 10:00 Respiratory Rate 20 12/10/18 12:00 Blood Pressure 141/72 12/10/18 12:00 O2 Sat by Pulse Oximetry (%) 94 L 12/10/18 07:35 Eyes: Yes: WNL, Conjunctiva Clear, EOM Intact HENT: Yes: WNL, Atraumatic, Normocephalic Neck: Yes: WNL, Supple, Trachea Midline Cardiovascular: Yes: Tachycardia, Pulse Irregular, S1, S2 Respiratory: Yes: WNL, Regular, CTA Bilaterally Gastrointestinal: Yes: WNL, Normal Bowel Sounds Genitourinary: Yes: WNL Musculoskeletal: Yes: WNL Extremities: Yes: WNL Edema: No Integumentary: Yes: WNL Neurological: Yes: WNL, Alert, Oriented ...Motor Strength: WNL Psychiatric: Yes: WNL Labs: CBC, BMP 12/10/18 05:30 12/10/18 05:30 INR, PTT INR 1.13 (0.83-1.09) H 11/23/18 16:40 Assessment/Plan - Problems (1) Atrial flutter Assessment/Plan: On diltiazem for HR control; start PO diltiazem of metoprolol. Digoxin loading has aided in controlling HR; started daily dose, which may have to be reduced to every other day.. Keep digoxin level 0.5-1.0 (level, at 1.59, was "elevated" previously). On apixaban for anticoagulation. ECHO: unable to assess LVEF; repeat when pt able to turn on left side for better windows (or get MUGA).If LVEF is significantly reduced, change diltiazem to beta nico (appears to tolerate lopressor IVP prn presently). Code(s): I48.92 - UNSPECIFIED ATRIAL FLUTTER Qualifiers: Atrial flutter type: unspecified Qualified Code(s): I48.92 - Unspecified atrial flutter (2) Morbid obesity Code(s): E66.01 - MORBID (SEVERE) OBESITY DUE TO EXCESS CALORIES (3) HTN (hypertension) Assessment/Plan: On diltiazem (start PO when cleared by swallowing team0. F/u ECHO for LVEF, wall thickness, chamber sizes, valve status when able to position pt for better windows.. Consider MUGA if unable to ottain LVEF from ECHO. Code(s): I10 - ESSENTIAL (PRIMARY) HYPERTENSION (4) Diabetes Code(s): E11.9 - TYPE 2 DIABETES MELLITUS WITHOUT COMPLICATIONS (5) [place] cardiac risk >20% in next 10 years Code(s): Z91.89 - OT PERSONAL RISK FACTORS, NOT ELSEWHERE CLASSIFIED (6) Alcoholism Code(s): F10.20 - ALCOHOL DEPENDENCE, UNCOMPLICATED (7) Cellulitis Code(s): L03.90 - CELLULITIS, UNSPECIFIED (8) Ascites Code(s): R18.8 - OTHER ASCITES (9) Interstitial lung disease Code(s): J84.9 - INTERSTITIAL PULMONARY DISEASE, UNSPECIFIED (10) CHF (congestive heart failure) Code(s): I50.9 - HEART FAILURE, UNSPECIFIED (11) Renal dysfunction Code(s): N28.9 - DISORDER OF KIDNEY AND URETER, UNSPECIFIED (12) Respiratory failure Code(s): J96.90 - RESPIRATORY FAILURE, UNSP, UNSP W HYPOXIA OR HYPERCAPNIA
--- NOTE | 2018-12-10 12:30 | PN ---
Teaching Attending Note Name of Resident: Yovany Jacobo ATTENDING PHYSICIAN STATEMENT I saw and evaluated the patient. I reviewed the resident's note and discussed the case with the resident. I agree with the resident's findings and plan as documented. SUBJECTIVE: Pt seen and examined in the ICU. Remains extubated but in rapid atrial fibrillation this AM to 160-170s. Denies shortness of breath, chest pain or palpitations. OBJECTIVE: Vital Signs Period Temp Pulse Resp BP Sys/Gregorio Pulse Ox Last 24 Hr 97.4 F-99.7 F 78-165 15-25 114-153/67-117 94-95 Intake & Output 12/07/18 12/08/18 12/09/18 12/10/18 23:59 23:59 23:59 23:59 Intake Total 4162 3014 1968 294 Output Total 2800 2000 3200 450 Balance 1362 1014 -1232 -156 Weight 113.511 kg 113.988 kg 113.988 kg 112.536 kg Gen: mildly tachypneic at rest Heart: tachycardic, irregular Lung: scattered rhonchi, wheezes Abd: soft, nontender Ext: less edema CBC, BMP 12/10/18 05:30 12/10/18 05:30 Active Medications Albuterol Sulfate (Ventolin 0.083% Nebulizer Soln -) 1 amp NEB Q6H PRN PRN Reason: SHORT OF BREATH/WHEEZING Apixaban (Eliquis -) 5 mg PO BID [facility] Last Admin: 12/10/18 08:59 Dose: 5 mg Bisacodyl (Dulcolax Suppository -) 10 mg RC DAILY [facility] Chlorhexidine Gluconate (Peridex -) 15 ml MM BID [facility] Last Admin: 12/10/18 09:01 Dose: 15 ml Cyanocobalamin (Vitamin B12 -) 100 mcg PO DAILY [facility] Last Admin: 12/10/18 08:59 Dose: 100 mcg Digoxin (Lanoxin Injection -) 0.125 mg IVPUSH DAILY [facility] Last Admin: 12/10/18 09:00 Dose: Not Given Docusate Sodium (Colace Liquid -) 300 mg NGT HS [facility] Last Admin: 12/09/18 21:38 Dose: 300 mg Folic Acid (Folic Acid -) 1 mg PO DAILY [facility] Last Admin: 12/10/18 08:59 Dose: 1 mg Gabapentin (Neurontin -) 100 mg PO DAILY [facility] Last Admin: 12/10/18 08:59 Dose: 100 mg Famotidine/Sodium Chloride (Pepcid 20 Mg Premixed Ivpb -) 20 mg in 50 mls @ 100 mls/hr IVPB DAILY [facility] Last Admin: 12/10/18 09:01 Dose: 100 mls/hr Dextrose (D5w -) 1,000 mls @ 42 mls/hr IV ASDIR [facility] Last Admin: 12/09/18 16:22 Dose: 42 mls/hr Insulin Aspart (Novolog Vial Sliding Scale -) 1 vial SQ ACHS [facility]; Protocol Last Admin: 12/10/18 10:47 Dose: 4 units Insulin Detemir (Levemir Vial) 14 units SQ HS [facility] Last Admin: 12/09/18 21:56 Dose: 14 units Ipratropium [place] (Atrovent 0.02% Nebulizer -) 1 amp NEB RQID [facility] Methylprednisolone Sodium Succinate (Solu-Medrol -) 60 mg IVPUSH DAILY [facility] Last Admin: 12/10/18 09:01 Dose: 60 mg Metoprolol Tartrate (Lopressor Injection -) 5 mg IVPUSH Q4H PRN PRN Reason: HR >120 Last Admin: 12/10/18 07:32 Dose: 5 mg Metoprolol Tartrate (Lopressor -) 25 mg PO BID [facility] Multivitamins/Minerals/Vitamin C (Tab-A-Vit -) 1 tab PO DAILY [facility] Last Admin: 12/10/18 08:59 Dose: 1 tab Polyethylene Glycol (Miralax (For Daily Use) -) 17 gm PO BID [facility] Last Admin: 12/10/18 09:00 Dose: 17 grams Saliva Substitute (Mouthkote Solution -) 1 applic MM Q2H PRN PRN Reason: COUGH Last Admin: 12/05/18 07:08 Dose: 1 applic Senna (Senna Oral Solution -) 8.8 mg PO [facility] Last Admin: 12/09/18 22:30 Dose: 8.8 5ml Thiamine HCl (Vitamin B1 Injection -) 200 mg IVPB DAILY [facility] Last Admin: 12/10/18 09:02 Dose: 200 mg ASSESSMENT AND PLAN: Acute on Chronic Hypoxic and Hypercapneic Respiratory Failure improving Acute COPD Exacerbation Morbid Obesity Obstructive Sleep Apnea/Obesity Hypoventilation Syndrome Suspect Right Heart Failure Volume Overload Mediastinal Lymphadenopathy Atrial Fibrillation with RVR Cellulitis treated Acute Kidney Injury Alcohol Abuse - rate control - continue anticoagulation - continue medrol at current dose - inhaled bronchodilators but minimize beta agonists - lasix as needed - completed antibiotics - monitor urine output, creatinine - taper FiO2 to keep Spo2 >90% - DVT/GI prophylaxis - continue ICU monitoring critical care time spent in reviewing chart, evaluating patient and formulating plan 35 min
--- NOTE | 2018-12-10 12:55 | PN ---
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, Physician History of Present Illness: Pt seen and examined at bedside. She remains extubated. She is confused. - Current Medication List Current Medications: Active Medications Albuterol Sulfate (Ventolin 0.083% Nebulizer Soln -) 1 amp NEB Q6H PRN PRN Reason: SHORT OF BREATH/WHEEZING Apixaban (Eliquis -) 5 mg PO BID [facility] Last Admin: 12/10/18 08:59 Dose: 5 mg Bisacodyl (Dulcolax Suppository -) 10 mg RC DAILY [facility] Chlorhexidine Gluconate (Peridex -) 15 ml MM BID [facility] Last Admin: 12/10/18 09:01 Dose: 15 ml Cyanocobalamin (Vitamin B12 -) 100 mcg PO DAILY [facility] Last Admin: 12/10/18 08:59 Dose: 100 mcg Digoxin (Lanoxin Injection -) 0.125 mg IVPUSH DAILY [facility] Last Admin: 12/10/18 09:00 Dose: Not Given Docusate Sodium (Colace Liquid -) [address] [facility] Last Admin: 12/09/18 21:38 Dose: 300 mg Folic Acid (Folic Acid -) 1 mg PO DAILY [facility] Last Admin: 12/10/18 08:59 Dose: 1 mg Gabapentin (Neurontin -) 100 mg PO DAILY [facility] Last Admin: 12/10/18 08:59 Dose: 100 mg Famotidine/Sodium Chloride (Pepcid 20 Mg Premixed Ivpb -) 20 mg in 50 mls @ 100 mls/hr IVPB DAILY [facility] Last Admin: 12/10/18 09:01 Dose: 100 mls/hr Dextrose (D5w -) 1,000 mls @ 42 mls/hr IV ASDIR [facility] Last Admin: 12/09/18 16:22 Dose: 42 mls/hr Insulin Aspart (Novolog Vial Sliding Scale -) 1 vial SQ ACHS [facility]; Protocol Last Admin: 12/10/18 10:47 Dose: 4 units Insulin Detemir (Levemir Vial) 14 units SQ HS [facility] Last Admin: 12/09/18 21:56 Dose: 14 units Ipratropium [place] (Atrovent 0.02% Nebulizer -) 1 amp NEB RQID [facility] Methylprednisolone Sodium Succinate (Solu-Medrol -) 60 mg IVPUSH DAILY [facility] Last Admin: 12/10/18 09:01 Dose: 60 mg Metoprolol Tartrate (Lopressor Injection -) 5 mg IVPUSH Q4H PRN PRN Reason: HR >120 Last Admin: 12/10/18 07:32 Dose: 5 mg Metoprolol Tartrate (Lopressor -) 25 mg PO BID [facility] Multivitamins/Minerals/Vitamin C (Tab-A-Vit -) 1 tab PO DAILY [facility] Last Admin: 12/10/18 08:59 Dose: 1 tab Polyethylene Glycol (Miralax (For Daily Use) -) 17 gm PO BID [facility] Last Admin: 12/10/18 09:00 Dose: 17 grams Saliva Substitute (Mouthkote Solution -) 1 applic MM Q2H PRN PRN Reason: COUGH Last Admin: 12/05/18 07:08 Dose: 1 applic Senna (Senna Oral Solution -) 8.8 mg PO HS [facility] Last Admin: 12/09/18 22:30 Dose: 8.8 5ml Thiamine HCl (Vitamin B1 Injection -) 200 mg IVPB DAILY [facility] Last Admin: 12/10/18 09:02 Dose: 200 mg - Objective Vital Signs: Vital Signs Temperature 98.6 F 12/10/18 10:00 Pulse Rate 94 H 12/10/18 12:00 Respiratory Rate 20 12/10/18 12:00 Blood Pressure 141/72 12/10/18 12:00 O2 Sat by Pulse Oximetry (%) 94 L 12/10/18 07:35 Constitutional: Yes: Calm Eyes: Yes: Conjunctiva Clear HENT: Yes: Atraumatic Cardiovascular: Yes: S1, S2 Respiratory: Yes: On Venti-Mask Gastrointestinal: Yes: Soft, Abdomen, Obese Genitourinary: Yes: Bills Present Musculoskeletal: Yes: Muscle Weakness Edema: Yes Edema: LUE: 1+, RUE: 1+, LLE: 1+, RLE: 1+ Neurological: Yes: Confusion Labs: CBC, BMP 12/10/18 05:30 12/10/18 05:30 INR, PTT INR 1.13 (0.83-1.09) H 11/23/18 16:40 - ....Imaging Chest X-ray: Report Reviewed Problem List - Problems (1) Hyperkalemia Code(s): E87.5 - HYPERKALEMIA (2) Acute on chronic respiratory failure with hypoxia and hypercapnia Code(s): J96.21 - ACUTE AND CHRONIC RESPIRATORY FAILURE WITH HYPOXIA; J96.22 - ACUTE AND CHRONIC RESPIRATORY FAILURE WITH HYPERCAPNIA (3) Acute renal failure Code(s): N17.9 - ACUTE KIDNEY FAILURE, UNSPECIFIED (4) Alcoholism Code(s): F10.20 - ALCOHOL DEPENDENCE, UNCOMPLICATED (5) Atrial flutter Code(s): I48.92 - UNSPECIFIED ATRIAL FLUTTER Qualifiers: Atrial flutter type: unspecified Qualified Code(s): I48.92 - Unspecified atrial flutter (6) Bilateral lower extremity edema Code(s): R60.0 - LOCALIZED EDEMA (7) COPD exacerbation Code(s): J44.1 - CHRONIC OBSTRUCTIVE PULMONARY DISEASE W (ACUTE) EXACERBATION Assessment/Plan Current Medications Generic Name Dose Route Start Last Admin Trade Name Freq PRN Reason Stop Dose Admin Albuterol Sulfate 1 amp 12/10/18 10:43 Ventolin 0.083% Nebulizer Soln - NEB Q6H PRN SHORT OF BREATH/WHEEZING Apixaban 5 mg 11/24/18 10:00 12/10/18 08:59 Eliquis - PO 5 mg BID [facility] Administration Bisacodyl 10 mg 12/10/18 11:00 Dulcolax Suppository - RC DAILY [facility] Chlorhexidine Gluconate 15 ml 12/08/18 11:45 12/10/18 09:01 Peridex - MM 15 ml BID [facility] Administration Cyanocobalamin 100 mcg 12/05/18 13:00 12/10/18 08:59 Vitamin B12 - PO 100 mcg DAILY [facility] Administration Digoxin 0.125 mg 12/02/18 12:15 12/10/18 09:00 Lanoxin Injection - IVPUSH Not Given DAILY [facility] Docusate Sodium 300 mg 12/06/18 22:00 12/09/18 21:38 Colace Liquid - NGT 300 mg HS [facility] Administration Folic Acid 1 mg 12/05/18 14:15 12/10/18 08:59 Folic Acid - PO 1 mg DAILY [facility] Administration Gabapentin 100 mg 11/24/18 10:00 12/10/18 08:59 Neurontin - PO 100 mg DAILY [facility] Administration Famotidine/Sodium Chloride 20 mg in 50 mls @ 100 mls/hr 12/10/18 10:00 09:01 Pepcid 20 Mg Premixed Ivpb - IVPB 100 mls/hr DAILY [facility] Administration Dextrose 1,000 mls @ 42 mls/hr 12/09/18 16:00 12/09/18 16:22 D5w - IV 42 mls/hr ASDIR [facility] Administration Insulin Aspart 1 vial 12/03/18 10:32 12/10/18 10:47 Novolog Vial Sliding Scale - SQ 4 units ACHS [facility] Administration Protocol Insulin Detemir 14 units 12/07/18 22:00 12/09/18 21:56 Levemir Vial SQ 14 units HS [facility] Administration Ipratropium [place] 1 amp 12/10/18 12:00 Atrovent 0.02% Nebulizer - NEB RQID [facility] Methylprednisolone Sodium Succinate 60 mg 12/09/18 12:00 12/10/18 09:01 Solu-Medrol - IVPUSH 60 mg DAILY [facility] Administration Metoprolol Tartrate 5 mg 11/28/18 21:33 12/10/18 07:32 Lopressor Injection - IVPUSH 5 mg Q4H PRN Administration HR >120 Metoprolol Tartrate 25 mg 12/10/18 10:45 Lopressor - PO BID [facility] Multivitamins/Minerals/Vitamin C 1 tab 11/24/18 10:00 12/10/18 08:59 Tab-A-Vit - PO 1 tab DAILY [facility] Administration Polyethylene Glycol 17 gm 12/09/18 10:00 12/10/18 09:00 Miralax (For Daily Use) - PO 17 grams BID [facility] Administration Saliva Substitute 1 applic 12/05/18 06:36 12/05/18 07:08 Mouthkote Solution - MM 1 applic Q2H PRN Administration COUGH Senna 8.8 mg 12/09/18 22:00 12/09/18 22:30 Senna Oral Solution - PO 8.8 5ml HS [facility] Administration Thiamine HCl 200 mg 12/09/18 10:00 12/10/18 09:02 Vitamin B1 Injection - IVPB 200 mg DAILY [facility] Administration Laboratory Tests 11/24/18 12/03/18 12/03/18 12:49 15:00 21:20 Urine Blood Negative Negative c-ANCA <1:20 Proteinase 3 (PR3) 46.6 H p-ANCA 1:80 H Atypical p-ANCA <1:20 Myeloperoxidase Ab <9.0 Impression 1. PITO 2. hyperkalemia 3. a-flutter 4. resp failure requiring bipap 5. DM 6. HTN 7. active smoker 8. etoh abuse 9. obesity 10. interstitial lung disease on CT scan 11. resp acidosis 12. COPD 13. positive pr3 14. hypernatremia Plan - recall rheum to review repeat serology - p-anca and pr3 are positive, c anca however is negative - ua negative for blood on 2 occasions - lasix as needed - monitor pulse ox - stop fluid once feeds started - asa on hold - will follow closely
[2018-12-10] MEDS: BISACODYL 10 MG SUPP.RECT RC SCH (13:00)
--- NOTE | 2018-12-10 13:03 | PN ---
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, COMMUNICATIONS OPERATOR - Note 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: Pt reportedly tolerated pills in applesauce this am and coughed on Miralax ( thin liquid). Lethargic. Vocal quality improving. Pt forgets to swallow with repeated reminders needed to trigger swallow onset. Swallow seems fairly brisk once triggered, however, throat clearing noted intermittently. May benefit from temporary NGT for pills/nutrition ifv not sufficiently arousable. Dys Puree/honey thick on tsp if wide awake and cooperative. Pt needs to be told to swallow with each bite. MBS when improved.
[2018-12-10] MEDS: DEXTROSE 5%-WATER - 1,000 ML IV SCH (13:09)
[2018-12-10 16:32] LABS: ARTERIAL BLD GAS O2 SATURATION 94.1 % (90-98.9); ARTERIAL BLOOD GAS PCO2 52.3 mmHg (35-45); ARTERIAL BLOOD GAS PO2 72.6 mmHg (80-100); ARTERIAL BLOOD GAS pH 7.43 (7.35-7.45)
[2018-12-10 16:36] LABS: ALLENS TEST POSITIVE
[2018-12-10] MEDS: DOCUSATE NA 100 MG/10 ML UNIT-DOSE CUPS NGT SCH (21:43)
[2018-12-10] MEDS: INSULIN (LEVEMIR) 100 UNITS/ML UNITS SQ SCH (21:43)
[2018-12-10] MEDS: SENNOSIDES 8.8 MG/5 ML BULK BOTTLE PO SCH (22:00)
[2018-12-11 06:44] LABS: ARTERIAL BLOOD GAS BASE EXCESS 9.2 meq/l (-2-2); ARTERIAL BLOOD GAS PCO2 51.9 mmHg (35-45); ARTERIAL BLOOD GAS PO2 71.4 mmHg (80-100); ARTERIAL BLOOD GAS pH 7.44 (7.35-7.45)
[2018-12-11 06:48] LABS: ALLENS TEST POSITIVE
[2018-12-11] MEDS: INSULIN SLIDING SCALE (NOVOLOG) 1 VIAL SQ SCH ×4 (06:48→23:05)
[2018-12-11 07:41] LABS: BASO % 0.4 % (0-2.0); EOS % 2.3 % (0-4.5); HEMATOCRIT 45.6 % (32.4-45.2); HEMOGLOBIN 14.2 GM/dL (10.7-15.3); LYMPH % 12.2 % (8-40); MCH 31.5 pg (25.7-33.7); MCHC 31.1 g/dl (32.0-36.0); MEAN CELL VOLUME 101.4 fl (80-96); MEAN PLT VOLUME 11.6 fl (7.5-11.1); MONO % 5.2 % (3.8-10.2); NEUT % 79.9 % (42.8-82.8); PLATELET COUNT 48 K/MM3 (134-434); RBC 4.49 M/mm3 (3.60-5.2); WHITE BLOOD COUNT 10.5 K/mm3 (4.0-10.0)
[2018-12-11 08:02] LABS: ALBUMIN 2.2 g/dl (3.4-5.0); ALK PHOS 96 U/L (45-117); ANION GAP 3 MMOL/L (8-16); BILIRUBIN,TOTAL 1.2 mg/dL (0.2-1); BLOOD UREA NITROGEN 50 mg/dL (7-18); CALCIUM 8.4 mg/dL (8.5-10.1); CHLORIDE 114 mmol/L (98-107); CO2 34 mmol/L (21-32); CREATININE 1.2 mg/dL (0.55-1.3); GLUCOSE,RANDOM 124 mg/dL (74-106); MAGNESIUM 2.1 mg/dL (1.8-2.4); PHOSPHOROUS 2.9 mg/dL (2.5-4.9); POTASSIUM 4.4 mmol/L (3.5-5.1); SGOT/AST 34 U/L (15-37); SGPT/ALT 36 U/L (13-61); SODIUM 150 mmol/L (136-145); TOT PROT 5.2 g/dl (6.4-8.2)
--- NOTE | 2018-12-11 08:48 | PN ---
Physical Exam: SUBJECTIVE: Patient seen and examined. No acute complaints OBJECTIVE: Vital Signs Period Temp Pulse Resp BP Sys/Gregorio Pulse Ox Last 24 Hr 98 F-99.2 F 49-147 16-22 110-142/20-92 97-100 GENERAL: awake, following commands, no acute distress HEAD: NC/AT EYES: PERRL, EOMI ENT: Moist mucous membranes. maxillary lip wound (hemostatic) NECK: supple LUNGS: b/l coarse breath sounds throughout with good air entry HEART: regular rhythm, regular rate, no murmur appreciated ABDOMEN: Soft, protuberant, edematous, mild distended, normoactive bowel sounds BUE: B/l hand swelling, not likely cellulitis, sensation intact LOWER EXTREMITIES: 2+ pulses, warm, well-perfused NEUROLOGICAL: following simple commands, moves all extremities spontaneously, hoarse speech s/p extubation ASSESSMENT/PLAN: The pt is a 53F with a PMH of COPD, acute/chronic EtOH abuse (several glasses of rum daily), long-term tobacco abuse, TRINH, morbid obesity, DM, HTN, hyperlipidemia, cellulites, metabolic syndrome who was transferred to ICU due to worsening respiratory failure 11/27 - Patient w/ worsening mentation and respiratory status throughout the morning. Worsening repeat ABG. Decision was made to intubate for hypercapnic/ hypoxic respiratory failure 11/28 - Vented, ABG improving 12/01 - Extubated to HFNC. OGT D/C'ed. 12/02 - +PR3, plan for kidney bx in 7d (ASA held) 12/03 - Methylprednisolone 12/04 - Trial high flow, swallow eval 12/05 - Intubated, OGT placed, TF started; CT chest w/o for eval of ILD 12/07 - Inc. free water flush 12/08 - Cont. free water, dec thiamine, plan vent wean tomorrow 12/09 - Extubated; Inc. bowel regimen; Steroids weaned 12/11 - On BiPap overnight, hypercapnia resolving, UA, Ucx Neuro ETOH abuse, dependence -Patient no longer likely to withdraw given length of time in hospital Tobacco abuse -Educated AMS w/o focal deficit -Will send ammonia -UA/UCx CV Cardiology Dr Ronny Santana-flutter -Apixaban -Digoxin HTN -Antihypertensives held 2/2 relative hypotension Hypervolemia w/ pulmonary congestion -Lasix 40mg IV PRN Pulm Acute hypercapnic respiratory failure due to pulmonary edema can Not R/O CHF vs copd exacerbation -Continue symbicort -Continue broncodilators -s/p intubation 11/27/2018 for acute decompensation --Extubated 12/01/2018 -Patient was on continuous BiPap, failed wean to HFNC --Intubated 12/05/2018 for hypercapnic respiratory failure -Extubated 12/09/2018 -BiPap PRN ILD possible on initial CT -Methylprednisolone 80mg IV daily -F/u CT chest w/o evidence of ILD GI Nutrition -Pend speech/swallow eval for PO intake -Thiamine, folate, B12 daily -Bowel regimen: docusate, senna, miralax, bisacodyl GI Ppx -Pepcid Ascites -AMS -Will obtain RUQ US for hepatic evaluation PITO -Avoid nephrotoxic agents -Nephrology consulted -Improving AMS -Will obtain UA, Ucx Hyperkalemia -Resolved Hypernatremia -Improving, will encourage PO intake when cleared Heme DVT Ppx: scds, eliquis ID BLE Cellulitis -Not likely infectious in etiology -s/p Abx course -no further abx at this time Endo DM -BGM ACHS -ISS increased on 12/03 2/2 poor glycemic control Morbid obesity -Educated about low calories diet , losing weight , daily exercise Rheum Persistently elevated PR3 and p-ANCA -Will obtain ASCA per Renal and f/u w/ Dr. Melton for further recommendations [facility] [place]- 11/25/2018 PIV Dispo: Patient continues to require ICU level of care. Visit type - Emergency Visit Emergency Visit: Yes ED Registration Date: 11/23/18 Care time: The patient presented to the Emergency Department on the above date and was hospitalized for further evaluation of their emergent condition. - New Patient This patient is new to me today: No - Critical Care Critical Care patient: Yes Total Critical Care Time (in minutes): 35 Critical Care Statement: The care of this patient involved high complexity decision making to prevent further life threatening deterioration of the patient 's condition and/or to evaluate & treat vital organ system(s) failure or risk of failure.
[2018-12-11] MEDS: IPRATROPIUM BR 0.02% 0.5 MG/2.5 ML VIAL.NEB. NEB SCH ×4 (09:07→20:50)
[2018-12-11] MEDS: methylPREDNISolone NA SUCC 40 MG/1 ML VIAL IVPUSH SCH (09:33)
[2018-12-11] MEDS: APIXABAN 5 MG TABLET PO SCH (09:34)
[2018-12-11] MEDS: FAMOTIDINE 20 MG/50 ML IVPB 20 MG/50 ML MG IVPB SCH (09:34)
[2018-12-11] MEDS: FOLIC ACID 1 MG TABLET (FP) PO SCH (09:34)
[2018-12-11] MEDS: METOPROLOL TARTRATE 25 MG TABLET (FP) PO SCH ×2 (09:34→23:02)
[2018-12-11] MEDS: CHLORHEXIDINE GLUCONATE 0.12% 15ML CUP MM SCH (09:35)
[2018-12-11] MEDS: MULTIVITAMINS (DAILY MVI) TABLET (FP) PO SCH (09:35)
[2018-12-11] MEDS: THIAMINE HCL 200 MG/2 ML VIAL IVPB SCH (09:35)
[2018-12-11] MEDS: CYANOCOBALAMIN (VITAMIN B-12) 100 MCG TABLET PO SCH (09:35)
[2018-12-11] MEDS: GABAPENTIN 100 MG CAPSULE (FP) PO SCH (09:35)
[2018-12-11] MEDS: DIGOXIN 0.5 MG/2 ML AMPUL IVPUSH SCH (09:36)
[2018-12-11] MEDS: BISACODYL 10 MG SUPP.RECT RC SCH (11:36)
[2018-12-11] MEDS: POLYETHYLENE GLYCOL 3350 119 GM BTL PO SCH (11:36)
--- NOTE | 2018-12-11 12:31 | PN ---
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, MACHINE SET UP - Note 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: Pt has been NPO, on BIPAP. Weak, hypophonia today. LTACH being considered. Alternate means of nutritional intake? RD followup regarding nutrition.
--- NOTE | 2018-12-11 12:53 | PN ---
Teaching Attending Note Name of Resident: Heriberto Urena ATTENDING PHYSICIAN STATEMENT I saw and evaluated the patient. I reviewed the resident's note and discussed the case with the resident. I agree with the resident's findings and plan as documented. SUBJECTIVE: Pt seen and examined in the ICU. Placed back on BiPAP for increasing lethargy. Confused, slow to respond. OBJECTIVE: Vital Signs Period Temp Pulse Resp BP Sys/Gregorio Pulse Ox Last 24 Hr 98 F-99.3 F 49-147 16-22 110-142/20-87 92-100 Intake & Output 12/08/18 12/09/18 12/10/18 12/11/18 23:59 23:59 23:59 23:59 Intake Total 3014 1968 962 294 Output Total 1999 3200 1650 400 Balance 1014 -1232 -688 -106 Weight 113.988 kg 113.988 kg 112.536 kg 111.992 kg Gen: somnolent but arousable Heart: RRR Lung: decreased breath sounds at the bases Abd: softly distended, +ascites Ext: trace edema CBC, BMP 12/11/18 07:20 12/11/18 07:20 Active Medications Albuterol Sulfate (Ventolin 0.083% Nebulizer Soln -) 1 amp NEB Q6H PRN PRN Reason: SHORT OF BREATH/WHEEZING Bisacodyl (Dulcolax Suppository -) 10 mg RC DAILY [facility] Last Admin: 12/11/18 11:36 Dose: 10 mg Chlorhexidine Gluconate (Peridex -) 15 ml MM BID [facility] Last Admin: 12/11/18 09:35 Dose: 15 ml Cyanocobalamin (Vitamin B12 -) 100 mcg PO DAILY [facility] Last Admin: 12/11/18 09:35 Dose: 100 mcg Digoxin (Lanoxin Injection -) 0.125 mg IVPUSH DAILY [facility] Last Admin: 12/11/18 09:36 Dose: Not Given Docusate Sodium (Colace Liquid -) 300 mg NGT [facility] Last Admin: 12/10/18 21:43 Dose: 300 mg Folic Acid (Folic Acid -) 1 mg PO DAILY [facility] Last Admin: 12/11/18 09:34 Dose: 1 mg Gabapentin (Neurontin -) 100 mg PO DAILY [facility] Last Admin: 12/11/18 09:35 Dose: 100 mg Heparin Sodium (Porcine) (Heparin -) 5,000 unit SQ TID [facility] Famotidine/Sodium Chloride (Pepcid 20 Mg Premixed Ivpb -) 20 mg in 50 mls @ 100 mls/hr IVPB DAILY [facility] Last Admin: 12/11/18 09:34 Dose: 100 mls/hr Dextrose (D5w -) 1,000 mls @ 42 mls/hr IV ASDIR [facility] Last Admin: 12/10/18 13:09 Dose: 42 mls/hr Insulin Aspart (Novolog Vial Sliding Scale -) 1 vial SQ ACHS [facility]; Protocol Last Admin: 12/11/18 11:35 Dose: 2 units Insulin Detemir (Levemir Vial) 14 units SQ HS [facility] Last Admin: 12/10/18 21:43 Dose: 14 units Ipratropium [place] (Atrovent 0.02% Nebulizer -) 1 amp NEB RQID [facility] Last Admin: 12/11/18 09:07 Dose: 1 amp Methylprednisolone Sodium Succinate (Solu-Medrol -) 60 mg IVPUSH DAILY [facility] Last Admin: 12/11/18 09:33 Dose: 60 mg Metoprolol Tartrate (Lopressor Injection -) 5 mg IVPUSH Q4H PRN PRN Reason: HR >120 Last Admin: 12/10/18 16:30 Dose: 5 mg Metoprolol Tartrate (Lopressor -) 25 mg PO BID [facility] Last Admin: 12/11/18 09:34 Dose: 25 mg Multivitamins/Minerals/Vitamin C (Tab-A-Vit -) 1 tab PO DAILY [facility] Last Admin: 12/11/18 09:35 Dose: 1 tab Saliva Substitute (Mouthkote Solution -) 1 applic MM Q2H PRN PRN Reason: COUGH Last Admin: 12/05/18 07:08 Dose: 1 applic Senna (Senna Oral Solution -) 8.8 mg PO HS [facility] Last Admin: 12/10/18 22:00 Dose: Not Given Thiamine HCl (Vitamin B1 Injection -) 200 mg IVPB DAILY [facility] Last Admin: 12/11/18 09:35 Dose: 200 mg ASSESSMENT AND PLAN: Acute on Chronic Hypoxic and Hypercapneic Respiratory Failure improving Acute COPD Exacerbation Morbid Obesity Obstructive Sleep Apnea/Obesity Hypoventilation Syndrome Suspect Right Heart Failure Volume Overload Mediastinal Lymphadenopathy Atrial Fibrillation with RVR Cellulitis treated Acute Kidney Injury Alcohol Abuse - check abdominal ultrasound, ammonia level - check UA, UCx to r/o occult infection - CT head if no other sources of altered mental status - rate control - continue anticoagulation - continue medrol at current dose - inhaled bronchodilators but minimize beta agonists - lasix as needed - completed antibiotics - monitor urine output, creatinine - BiPAP as needed to assist in work of breathing - taper FiO2 to keep Spo2 >90% - DVT/GI prophylaxis - continue ICU monitoring critical care time spent in reviewing chart, evaluating patient and formulating plan 35 min
--- NOTE | 2018-12-11 13:18 | PN ---
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 (short form) - Note 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: drowsy Vital Signs - 24 hr 12/10/18 12/10/18 12/10/18 13:48 15:00 16:00 Temperature 99.2 F Pulse Rate 94 H 86 88 Respiratory 20 20 20 Rate Blood Pressure 141/82 142/87 142/87 O2 Sat by Pulse Oximetry (%) 12/10/18 12/10/18 12/10/18 16:30 18:06 18:13 Temperature 98 F Pulse Rate 146 H 54 L Respiratory 20 Rate Blood Pressure 142/87 114/70 O2 Sat by Pulse 99 Oximetry (%) 12/10/18 12/10/18 12/10/18 19:01 20:00 21:00 Temperature 98.2 F Pulse Rate 59 L Respiratory 16 Rate Blood Pressure 114/72 O2 Sat by Pulse 97 100 Oximetry (%) 12/11/18 12/11/18 12/11/18 00:00 02:00 02:57 Temperature 98 F Pulse Rate 49 L 59 L 60 Respiratory 16 22 H Rate Blood Pressure 118/20 L 134/74 O2 Sat by Pulse 98 Oximetry (%) 12/11/18 12/11/18 12/11/18 04:00 06:00 08:00 Temperature 98.5 F Pulse Rate 59 L 59 L 60 Respiratory 21 H 21 H 22 H Rate Blood Pressure 142/79 110/74 131/81 O2 Sat by Pulse Oximetry (%) 12/11/18 12/11/18 12/11/18 09:00 09:15 09:36 Temperature Pulse Rate 54 L Respiratory 22 H Rate Blood Pressure O2 Sat by Pulse 96 96 Oximetry (%) 12/11/18 12/11/18 12/11/18 10:00 12:05 12:37 Temperature 99.3 F Pulse Rate 59 L 58 L Respiratory 22 H 22 H Rate Blood Pressure 139/69 140/71 O2 Sat by Pulse 96 92 L Oximetry (%) 12/11/18 13:04 Temperature 99.2 F Pulse Rate 60 Respiratory 22 H Rate Blood Pressure O2 Sat by Pulse Oximetry (%) Current Medications Generic Name Dose Route Start Last Admin Trade Name Freq PRN Reason Stop Dose Admin Albuterol Sulfate 1 amp 12/10/18 10:43 Ventolin 0.083% Nebulizer Soln - NEB Q6H PRN SHORT OF BREATH/WHEEZING Bisacodyl 10 mg 12/10/18 11:00 12/11/18 11:36 Dulcolax Suppository - RC 10 mg DAILY [facility] Administration Chlorhexidine Gluconate 15 ml 12/08/18 11:45 12/11/18 09:35 Peridex - MM 15 ml BID [facility] Administration Cyanocobalamin 100 mcg 12/05/18 13:00 12/11/18 09:35 Vitamin B12 - PO 100 mcg DAILY [facility] Administration Digoxin 0.125 mg 12/02/18 12:15 12/11/18 09:36 Lanoxin Injection - IVPUSH Not Given DAILY [facility] Docusate Sodium 300 mg 12/06/18 22:00 12/10/18 21:43 Colace Liquid - NGT 300 mg HS [facility] Administration Folic Acid 1 mg 12/05/18 14:15 12/11/18 09:34 Folic Acid - PO 1 mg DAILY [facility] Administration Gabapentin 100 mg 11/24/18 10:00 12/11/18 09:35 Neurontin - PO 100 mg DAILY [facility] Administration Heparin Sodium (Porcine) 5,000 unit 12/11/18 14:00 Heparin - SQ TID [facility] Famotidine/Sodium Chloride 20 mg in 50 mls @ 100 mls/hr 12/10/18 10:00 09:34 Pepcid 20 Mg Premixed Ivpb - IVPB 100 mls/hr DAILY [facility] Administration Dextrose 1,000 mls @ 42 mls/hr 12/09/18 16:00 12/10/18 13:09 D5w - IV 42 mls/hr ASDIR [facility] Administration Insulin Aspart 1 vial 12/03/18 10:32 12/11/18 11:35 Novolog Vial Sliding Scale - SQ 2 units ACHS [facility] Administration Protocol Insulin Detemir 14 units 12/07/18 22:00 12/10/18 21:43 Levemir Vial SQ 14 units HS [facility] Administration Ipratropium [place] 1 amp 12/10/18 12:00 12/11/18 09:07 Atrovent 0.02% Nebulizer - NEB 1 amp RQID [facility] Administration Methylprednisolone Sodium Succinate 60 mg 12/09/18 12:00 12/11/18 09:33 Solu-Medrol - IVPUSH 60 mg DAILY [facility] Administration Metoprolol Tartrate 5 mg 11/28/18 21:33 12/10/18 16:30 Lopressor Injection - IVPUSH 5 mg Q4H PRN Administration HR >120 Metoprolol Tartrate 25 mg 12/10/18 10:45 12/11/18 09:34 Lopressor - PO 25 mg BID [facility] Administration Multivitamins/Minerals/Vitamin C 1 tab 11/24/18 10:00 12/11/18 09:35 Tab-A-Vit - PO 1 tab DAILY [facility] Administration Saliva Substitute 1 applic 12/05/18 06:36 12/05/18 07:08 Mouthkote Solution - MM 1 applic Q2H PRN Administration COUGH Senna 8.8 mg 12/09/18 22:00 12/10/18 22:00 Senna Oral Solution - PO Not Given HS [facility] Thiamine HCl 200 mg 12/09/18 10:00 12/11/18 09:35 Vitamin B1 Injection - IVPB 200 mg DAILY [facility] Administration Laboratory Results - last 24 hr 12/06/18 12/10/18 12/10/18 22:22 05:30 15:46 WBC RBC Hgb Hct MCV MCH MCHC RDW Plt Count MPV Absolute Neuts (auto) Neutrophils % Lymphocytes % Monocytes % Eosinophils % Basophils % Nucleated RBC % Puncture Site ABG pH ABG pCO2 at Pt Temp ABG pO2 at Pt Temp ABG HCO3 ABG O2 Sat (Measured) ABG O2 Content ABG Base Excess Mendoza Test O2 Delivery Device Oxygen Flow Rate Vent Mode Vent Rate Mechanical Rate PEEP Pressure Support Vent Sodium Potassium Chloride Carbon Dioxide Anion Gap BUN Creatinine Creat Clearance w eGFR POC Glucometer 264.52180 230.04003 Random Glucose Calcium Phosphorus Magnesium Total Bilirubin AST ALT Alkaline Phosphatase Total Protein Albumin Digoxin 0.76 L 12/10/18 12/10/18 12/11/18 16:26 21:21 05:49 WBC RBC Hgb Hct MCV MCH MCHC RDW Plt Count MPV Absolute Neuts (auto) Neutrophils % Lymphocytes % Monocytes % Eosinophils % Basophils % Nucleated RBC % Puncture Site Right radial ABG pH 7.43 ABG pCO2 at Pt Temp 52.3 H ABG pO2 at Pt Temp 72.6 L ABG HCO3 33.8 H ABG O2 Sat (Measured) 94.1 ABG O2 Content 19.3 ABG Base Excess 8.0 H Mendoza Test Positive O2 Delivery Device Oxygen Flow Rate Yes Vent Mode Vent Rate Mechanical Rate PEEP Pressure Support Vent Sodium Potassium Chloride Carbon Dioxide Anion Gap BUN Creatinine Creat Clearance w eGFR POC Glucometer 153.22100 79.66820 Random Glucose Calcium Phosphorus Magnesium Total Bilirubin AST ALT Alkaline Phosphatase Total Protein Albumin Digoxin 12/11/18 12/11/18 12/11/18 06:30 07:20 07:20 WBC 10.5 H RBC 4.49 Hgb 14.2 Hct 45.6 H MCV 101.4 H MCH 31.5 MCHC 31.1 L RDW 15.0 Plt Count 48 L MPV 11.6 H Absolute Neuts (auto) 8.4 H Neutrophils % 79.9 Lymphocytes % 12.2 D Monocytes % 5.2 Eosinophils % 2.3 Basophils % 0.4 Nucleated RBC % 0 Puncture Site Left radial ABG pH 7.44 ABG pCO2 at Pt Temp 51.9 H ABG pO2 at Pt Temp 71.4 L ABG HCO3 34.7 H ABG O2 Sat (Measured) 94.0 ABG O2 Content 17.9 ABG Base Excess 9.2 H Mendoza Test Positive O2 Delivery Device Bipap Oxygen Flow Rate 50 Vent Mode S/t Vent Rate 18 Mechanical Rate No PEEP 0.0 Pressure Support Vent 14/8 Sodium 150 H Potassium 4.4 Chloride 114 H Carbon Dioxide 34 H Anion Gap 3 L BUN 50 H Creatinine 1.2 Creat Clearance w eGFR 46.82 POC Glucometer Random Glucose 124 H Calcium 8.4 L Phosphorus 2.9 Magnesium 2.1 Total Bilirubin 1.2 H AST 34 ALT 36 Alkaline Phosphatase 96 Total Protein 5.2 L Albumin 2.2 L Digoxin awake S1 S2 RRR Lungs decreased breath sounds Abd- soft, NT,obese, ND edema + PLAN In ICU - monitor O2 sat BIPAP swallow eval noted on IV solumedrol to check ammonia levels, CT head if altered Problem List - Problems (1) Acute on chronic respiratory failure with hypoxia and hypercapnia Code(s): J96.21 - ACUTE AND CHRONIC RESPIRATORY FAILURE WITH HYPOXIA; J96.22 - ACUTE AND CHRONIC RESPIRATORY FAILURE WITH HYPERCAPNIA (2) Acute renal failure Code(s): N17.9 - ACUTE KIDNEY FAILURE, UNSPECIFIED (3) Acute respiratory failure with hypoxia and hypercapnia Code(s): J96.01 - ACUTE RESPIRATORY FAILURE WITH HYPOXIA; J96.02 - ACUTE RESPIRATORY FAILURE WITH HYPERCAPNIA (4) Alcoholism Code(s): F10.20 - ALCOHOL DEPENDENCE, UNCOMPLICATED (5) Atrial flutter Code(s): I48.92 - UNSPECIFIED ATRIAL FLUTTER Qualifiers: Atrial flutter type: unspecified Qualified Code(s): I48.92 - Unspecified atrial flutter (6) Bilateral lower extremity edema Code(s): R60.0 - LOCALIZED EDEMA
[2018-12-11] MEDS: HEPARIN NA (PORCINE) 5,000 UNITS/ML 1ML VIAL SQ SCH ×2 (14:18→23:07)
[2018-12-11] MEDS ORDERED: DEXTROSE 5%-WATER - 1,000 ML IV SCH (15:42)
--- NOTE | 2018-12-11 15:42 | PN ---
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, Physician History of Present Illness: Pt seen and examined at bedside. She remains extubated. She remains in the ICU. - Current Medication List Current Medications: Active Medications Albuterol Sulfate (Ventolin 0.083% Nebulizer Soln -) 1 amp NEB Q6H PRN PRN Reason: SHORT OF BREATH/WHEEZING Bisacodyl (Dulcolax Suppository -) 10 mg RC DAILY [facility] Last Admin: 12/11/18 11:36 Dose: 10 mg Chlorhexidine Gluconate (Peridex -) 15 ml MM BID [facility] Last Admin: 12/11/18 09:35 Dose: 15 ml Cyanocobalamin (Vitamin B12 -) 100 mcg PO DAILY [facility] Last Admin: 12/11/18 09:35 Dose: 100 mcg Digoxin (Lanoxin Injection -) 0.125 mg IVPUSH DAILY [facility] Last Admin: 12/11/18 09:36 Dose: Not Given Docusate Sodium (Colace Liquid -) 300 mg NGT HS [facility] Last Admin: 12/10/18 21:43 Dose: 300 mg Folic Acid (Folic Acid -) 1 mg PO DAILY [facility] Last Admin: 12/11/18 09:34 Dose: 1 mg Gabapentin (Neurontin -) 100 mg PO DAILY [facility] Last Admin: 12/11/18 09:35 Dose: 100 mg Heparin Sodium (Porcine) (Heparin -) 5,000 unit SQ TID [facility] Last Admin: 12/11/18 14:18 Dose: 5,000 unit Famotidine/Sodium Chloride (Pepcid 20 Mg Premixed Ivpb -) 20 mg in 50 mls @ 100 mls/hr IVPB DAILY [facility] Last Admin: 12/11/18 09:34 Dose: 100 mls/hr Dextrose (D5w -) 1,000 mls @ 42 mls/hr IV ASDIR [facility] Last Admin: 12/10/18 13:09 Dose: 42 mls/hr Insulin Aspart (Novolog Vial Sliding Scale -) 1 vial SQ ACHS [facility]; Protocol Last Admin: 12/11/18 11:35 Dose: 2 units Insulin Detemir (Levemir Vial) 14 units SQ HS [facility] Last Admin: 12/10/18 21:43 Dose: 14 units Ipratropium [place] (Atrovent 0.02% Nebulizer -) 1 amp NEB RQID [facility] Last Admin: 12/11/18 09:07 Dose: 1 amp Methylprednisolone Sodium Succinate (Solu-Medrol -) 60 mg IVPUSH DAILY [facility] Last Admin: 12/11/18 09:33 Dose: 60 mg Metoprolol Tartrate (Lopressor Injection -) 5 mg IVPUSH Q4H PRN PRN Reason: HR >120 Last Admin: 12/10/18 16:30 Dose: 5 mg Metoprolol Tartrate (Lopressor -) 25 mg PO BID [facility] Last Admin: 12/11/18 09:34 Dose: 25 mg Multivitamins/Minerals/Vitamin C (Tab-A-Vit -) 1 tab PO DAILY [facility] Last Admin: 12/11/18 09:35 Dose: 1 tab Saliva Substitute (Mouthkote Solution -) 1 applic MM Q2H PRN PRN Reason: COUGH Last Admin: 12/05/18 07:08 Dose: 1 applic Senna (Senna Oral Solution -) 8.8 mg PO HS [facility] Last Admin: 12/10/18 22:00 Dose: Not Given Thiamine HCl (Vitamin B1 Injection -) 200 mg IVPB DAILY [facility] Last Admin: 12/11/18 09:35 Dose: 200 mg - Objective Vital Signs: Vital Signs Temperature 99.2 F 12/11/18 14:00 Pulse Rate 60 12/11/18 14:00 Respiratory Rate 22 H 12/11/18 14:00 Blood Pressure 111/96 12/11/18 14:00 O2 Sat by Pulse Oximetry (%) 92 L 12/11/18 12:37 Constitutional: Yes: Calm Eyes: Yes: Conjunctiva Clear HENT: Yes: Atraumatic Neck: Yes: Supple Cardiovascular: Yes: S1, S2 Respiratory: Yes: On Venti-Mask Gastrointestinal: Yes: Soft, Abdomen, Obese Genitourinary: Yes: Bills Present Musculoskeletal: Yes: Muscle Weakness Edema: Yes Edema: LLE: 1+, RLE: 1+ Neurological: Yes: Confusion Labs: CBC, BMP 12/11/18 07:20 12/11/18 07:20 INR, PTT INR 1.13 (0.83-1.09) H 11/23/18 16:40 Problem List - Problems (1) Hyperkalemia Code(s): E87.5 - HYPERKALEMIA (2) Acute on chronic respiratory failure with hypoxia and hypercapnia Code(s): J96.21 - ACUTE AND CHRONIC RESPIRATORY FAILURE WITH HYPOXIA; J96.22 - ACUTE AND CHRONIC RESPIRATORY FAILURE WITH HYPERCAPNIA (3) Acute renal failure Code(s): N17.9 - ACUTE KIDNEY FAILURE, UNSPECIFIED (4) Alcoholism Code(s): F10.20 - ALCOHOL DEPENDENCE, UNCOMPLICATED (5) Atrial flutter Code(s): I48.92 - UNSPECIFIED ATRIAL FLUTTER Qualifiers: Atrial flutter type: unspecified Qualified Code(s): I48.92 - Unspecified atrial flutter (6) Bilateral lower extremity edema Code(s): R60.0 - LOCALIZED EDEMA (7) COPD exacerbation Code(s): J44.1 - CHRONIC OBSTRUCTIVE PULMONARY DISEASE W (ACUTE) EXACERBATION Assessment/Plan Current Medications Generic Name Dose Route Start Last Admin Trade Name Freq PRN Reason Stop Dose Admin Albuterol Sulfate 1 amp 12/10/18 10:43 Ventolin 0.083% Nebulizer Soln - NEB Q6H PRN SHORT OF BREATH/WHEEZING Bisacodyl 10 mg 12/10/18 11:00 12/11/18 11:36 Dulcolax Suppository - RC 10 mg DAILY [facility] Administration Chlorhexidine Gluconate 15 ml 12/08/18 11:45 12/11/18 09:35 Peridex - MM 15 ml BID [facility] Administration Cyanocobalamin 100 mcg 12/05/18 13:00 12/11/18 09:35 Vitamin B12 - PO 100 mcg DAILY [facility] Administration Digoxin 0.125 mg 12/02/18 12:15 12/11/18 09:36 Lanoxin Injection - IVPUSH Not Given DAILY [facility] Docusate Sodium 300 mg 12/06/18 22:00 12/10/18 21:43 Colace Liquid - NGT 300 mg HS [facility] Administration Folic Acid 1 mg 12/05/18 14:15 12/11/18 09:34 Folic Acid - PO 1 mg DAILY [facility] Administration Gabapentin 100 mg 11/24/18 10:00 12/11/18 09:35 Neurontin - PO 100 mg DAILY [facility] Administration Heparin Sodium (Porcine) 5,000 unit 12/11/18 14:00 12/11/18 14:18 Heparin - SQ 5,000 unit TID [facility] Administration Famotidine/Sodium Chloride 20 mg in 50 mls @ 100 mls/hr 12/10/18 10:00 09:34 Pepcid 20 Mg Premixed Ivpb - IVPB 100 mls/hr DAILY [facility] Administration Dextrose 1,000 mls @ 42 mls/hr 12/09/18 16:00 12/10/18 13:09 D5w - IV 42 mls/hr ASDIR [facility] Administration Insulin Aspart 1 vial 12/03/18 10:32 12/11/18 11:35 Novolog Vial Sliding Scale - SQ 2 units ACHS [facility] Administration Protocol Insulin Detemir 14 units 12/07/18 22:00 12/10/18 21:43 Levemir Vial SQ 14 units HS [facility] Administration Ipratropium [place] 1 amp 12/10/18 12:00 12/11/18 09:07 Atrovent 0.02% Nebulizer - NEB 1 amp RQID [facility] Administration Methylprednisolone Sodium Succinate 60 mg 12/09/18 12:00 12/11/18 09:33 Solu-Medrol - IVPUSH 60 mg DAILY [facility] Administration Metoprolol Tartrate 5 mg 11/28/18 21:33 12/10/18 16:30 Lopressor Injection - IVPUSH 5 mg Q4H PRN Administration HR >120 Metoprolol Tartrate 25 mg 12/10/18 10:45 12/11/18 09:34 Lopressor - PO 25 mg BID [facility] Administration Multivitamins/Minerals/Vitamin C 1 tab 11/24/18 10:00 12/11/18 09:35 Tab-A-Vit - PO 1 tab DAILY [facility] Administration Saliva Substitute 1 applic 12/05/18 06:36 12/05/18 07:08 Mouthkote Solution - MM 1 applic Q2H PRN Administration COUGH Senna 8.8 mg 12/09/18 22:00 12/10/18 22:00 Senna Oral Solution - PO Not Given HS [facility] Thiamine HCl 200 mg 12/09/18 10:00 12/11/18 09:35 Vitamin B1 Injection - IVPB 200 mg DAILY [facility] Administration Impression 1. PITO 2. hyperkalemia 3. a-flutter 4. resp failure requiring bipap 5. DM 6. HTN 7. active smoker 8. etoh abuse 9. obesity 10. interstitial lung disease on CT scan 11. resp acidosis 12. COPD 13. positive pr3 14. hypernatremia Plan - cont to monitor renal function - cont d5w - repeat labs in am - recall rheumatology - discussed with ICU team - ua neg blood - asa on hold - will follow closely
[2018-12-11 17:47] LABS: URINE APPEARANCE CLOUDY; URINE BILIRUBIN NEGATIVE (<2.0 mg/dL); URINE COLOR AMBER; URINE GLUCOSE (UA) NEGATIVE (NEGATIVE); URINE KETONE NEGATIVE (NEGATIVE); URINE LEUK ESTERASE 2+ (NEGATIVE); URINE NITRITE NEGATIVE (NEGATIVE); URINE PROTEIN 2+ (NEGATIVE); URINE UROBILINOGEN 4.0 E.U/dl mg/dL (0.2-1.0)
[2018-12-11 18:02] LABS: EPI CELLS MANY /HPF (FEW); URINE BACTERIA RARE /hpf (NONE SEEN); URINE MUCUS RARE
[2018-12-11] MEDS: DOCUSATE NA 100 MG/10 ML UNIT-DOSE CUPS NGT SCH (23:02)
[2018-12-11] MEDS: INSULIN (LEVEMIR) 100 UNITS/ML UNITS SQ SCH (23:03)
[2018-12-12] MEDS: SENNOSIDES 8.8 MG/5 ML BULK BOTTLE PO SCH (01:59)
[2018-12-12] MEDS: CHLORHEXIDINE GLUCONATE 0.12% 15ML CUP MM SCH ×3 (02:00→22:48)
[2018-12-12 06:32] LABS: BASO % 0.4 % (0-2.0); EOS % 2.8 % (0-4.5); HEMATOCRIT 43.8 % (32.4-45.2); HEMOGLOBIN 13.9 GM/dL (10.7-15.3); LYMPH % 13.8 % (8-40); MCH 31.6 pg (25.7-33.7); MCHC 31.7 g/dl (32.0-36.0); MEAN CELL VOLUME 99.6 fl (80-96); MEAN PLT VOLUME 11.6 fl (7.5-11.1); MONO % 5.4 % (3.8-10.2); NEUT % 77.6 % (42.8-82.8); PLATELET COUNT 60 K/MM3 (134-434); RBC 4.39 M/mm3 (3.60-5.2); RDW 14.7 % (11.6-15.6); WHITE BLOOD COUNT 9.3 K/mm3 (4.0-10.0)
[2018-12-12] MEDS ORDERED: DEXTROSE 5%-WATER - 1,000 ML IV SCH (06:36)
[2018-12-12] MEDS: INSULIN SLIDING SCALE (NOVOLOG) 1 VIAL SQ SCH ×4 (06:51→22:56)
[2018-12-12] MEDS: HEPARIN NA (PORCINE) 5,000 UNITS/ML 1ML VIAL SQ SCH ×3 (06:51→21:17)
[2018-12-12 07:08] LABS: ARTERIAL BLOOD GAS BASE EXCESS 8.5 meq/l (-2-2); ARTERIAL BLOOD GAS PCO2 52.8 mmHg (35-45); ARTERIAL BLOOD GAS PO2 59.9 mmHg (80-100); ARTERIAL BLOOD GAS pH 7.43 (7.35-7.45)
[2018-12-12 07:11] LABS: ALBUMIN 2.5 g/dl (3.4-5.0); ALK PHOS 100 U/L (45-117); ANION GAP 5 MMOL/L (8-16); BILIRUBIN,TOTAL 1.2 mg/dL (0.2-1); BLOOD UREA NITROGEN 47 mg/dL (7-18); CALCIUM 8.4 mg/dL (8.5-10.1); CHLORIDE 112 mmol/L (98-107); CO2 36 mmol/L (21-32); CREATININE 1.1 mg/dL (0.55-1.3); GLUCOSE,RANDOM 91 mg/dL (74-106); PHOSPHOROUS 2.5 mg/dL (2.5-4.9); POTASSIUM 3.4 mmol/L (3.5-5.1); SGOT/AST 35 U/L (15-37); SGPT/ALT 39 U/L (13-61); SODIUM 153 mmol/L (136-145); TOT PROT 5.5 g/dl (6.4-8.2)
[2018-12-12] MEDS: IPRATROPIUM BR 0.02% 0.5 MG/2.5 ML VIAL.NEB. NEB SCH ×4 (07:30→21:29)
[2018-12-12 07:31] LABS: ALLENS TEST POSITIVE
[2018-12-12] MEDS: FAMOTIDINE 20 MG/50 ML IVPB 20 MG/50 ML MG IVPB SCH (09:13)
[2018-12-12] MEDS: KCL 10 MEQ IVPB 10 MEQ/100 ML INFUS.BAG IVPB SCH ×3 (09:14→12:26)
[2018-12-12] MEDS: methylPREDNISolone NA SUCC 40 MG/1 ML VIAL IVPUSH SCH (09:14)
[2018-12-12] MEDS: CYANOCOBALAMIN (VITAMIN B-12) 100 MCG TABLET PO SCH (09:15)
[2018-12-12] MEDS: FOLIC ACID 1 MG TABLET (FP) PO SCH (09:15)
[2018-12-12] MEDS: METOPROLOL TARTRATE 25 MG TABLET (FP) PO SCH ×2 (09:15→21:18)
[2018-12-12] MEDS: MULTIVITAMINS (DAILY MVI) TABLET (FP) PO SCH (09:15)
[2018-12-12] MEDS: DIGOXIN 0.5 MG/2 ML AMPUL IVPUSH SCH (09:15)
[2018-12-12] MEDS: THIAMINE HCL 200 MG/2 ML VIAL IVPB SCH (09:17)
[2018-12-12] MEDS: GABAPENTIN 100 MG CAPSULE (FP) PO SCH (09:17)
--- NOTE | 2018-12-12 10:38 | PN ---
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 (short form) - Note 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: pt seen/ examined in icu all f/u noted/ appreciated discussed with renal/ icu team today more awake on bipap passing urine afebrile Vital Signs Temp 98.8 F 12/12/18 10:00 Pulse 67 12/12/18 10:00 Resp 22 H 12/12/18 10:00 BP 115/66 12/12/18 10:00 Pulse Ox 98 12/12/18 09:00 Intake & Output 12/11/18 12/11/18 12/12/18 11:59 23:59 11:59 Intake Total 294 600 504 Output Total 400 1200 100 Balance -106 -600 404 Weight 246 lb 14.4 oz 241 lb 2.971 oz Intake: IV 294 550 504 D5w - 1,000 ml @ 42 mls/ 294 350 504 hr IV ASDIR [facility] Rx#: [id number] D5w - 1,000 ml @ 50 mls/ 200 hr IV ASDIR [facility] Rx#: [id number] IVPB 50 Output: Urine 400 1200 100 Bills 400 1200 100 Other: Voiding Method Indwelling Catheter Indwelling Catheter Indwelling Catheter Bowel Movement No Yes Yes # Bowel Movements 2 2 Weight Measurement Method Built in Bedscale Built in Bedscale Active Medications Albuterol Sulfate (Ventolin 0.083% Nebulizer Soln -) 1 amp NEB Q6H PRN PRN Reason: SHORT OF BREATH/WHEEZING Bisacodyl (Dulcolax Suppository -) 10 mg RC DAILY [facility] Last Admin: 12/11/18 11:36 Dose: 10 mg Chlorhexidine Gluconate (Peridex -) 15 ml MM BID [facility] Last Admin: 12/12/18 09:17 Dose: Not Given Cyanocobalamin (Vitamin B12 -) 100 mcg PO DAILY [facility] Last Admin: 12/12/18 09:15 Dose: 100 mcg Digoxin (Lanoxin Injection -) 0.125 mg IVPUSH DAILY [facility] Last Admin: 12/12/18 09:15 Dose: 0.125 mg Docusate Sodium (Colace Liquid -) 300 mg NGT HS [facility] Last Admin: 12/11/18 23:02 Dose: 300 mg Folic Acid (Folic Acid -) 1 mg PO DAILY [facility] Last Admin: 12/12/18 09:15 Dose: 1 mg Gabapentin (Neurontin -) 100 mg PO DAILY [facility] Last Admin: 12/12/18 09:17 Dose: 100 mg Heparin Sodium (Porcine) (Heparin -) 5,000 unit SQ TID [facility] Last Admin: 12/12/18 06:51 Dose: 5,000 unit Famotidine/Sodium Chloride (Pepcid 20 Mg Premixed Ivpb -) 20 mg in 50 mls @ 100 mls/hr IVPB DAILY [facility] Last Admin: 12/12/18 09:13 Dose: 100 mls/hr Dextrose (D5w -) 1,000 mls @ 75 mls/hr IV ASDIR [facility] Last Admin: 12/12/18 06:53 Dose: 75 mls/hr Potassium Chloride (Potassium Chloride 10 Meq Premix Ivpb -) 10 meq in 100 mls @ 100 mls/hr IVPB Q60M [facility] Stop: 12/12/18 11:59 Last Admin: 12/12/18 09:14 Dose: 100 mls/hr Insulin Aspart (Novolog Vial Sliding Scale -) 1 vial SQ ACHS [facility]; Protocol Last Admin: 12/12/18 06:51 Dose: Not Given Insulin Detemir (Levemir Vial) 14 units SQ HS [facility] Last Admin: 12/11/18 23:03 Dose: 14 units Ipratropium [place] (Atrovent 0.02% Nebulizer -) 1 amp NEB RQID [facility] Last Admin: 12/12/18 07:30 Dose: 1 amp Methylprednisolone Sodium Succinate (Solu-Medrol -) 60 mg IVPUSH DAILY [facility] [place] Last Admin: 12/12/18 09:14 Dose: 60 mg Metoprolol Tartrate (Lopressor Injection -) 5 mg IVPUSH Q4H PRN PRN Reason: HR >120 Last Admin: 12/10/18 16:30 Dose: 5 mg Metoprolol Tartrate (Lopressor -) 25 mg PO BID [facility] [place] Last Admin: 12/12/18 09:15 Dose: 25 mg Multivitamins/Minerals/Vitamin C (Tab-A-Vit -) 1 tab PO DAILY [facility] Last Admin: 12/12/18 09:15 Dose: 1 tab Saliva Substitute (Mouthkote Solution -) 1 applic MM Q2H PRN PRN Reason: COUGH Last Admin: 12/05/18 07:08 Dose: 1 applic Senna (Senna Oral Solution -) 8.8 mg PO [facility] Last Admin: 12/12/18 01:59 Dose: Not Given Thiamine HCl (Vitamin B1 Injection -) 200 mg IVPB DAILY [facility] Last Admin: 12/12/18 09:17 Dose: 200 mg CBC,CMP WBC 9.3 K/mm3 (4.0-10.0) 12/12/18 05:30 RBC 4.39 M/mm3 (3.60-5.2) 12/12/18 05:30 Hgb 13.9 GM/dL (10.7-15.3) 12/12/18 05:30 Hct 43.8 % (32.4-45.2) 12/12/18 05:30 MCV 99.6 fl (80-96) H 12/12/18 05:30 MCH 31.6 pg (25.7-33.7) 12/12/18 05:30 MCHC 31.7 g/dl (32.0-36.0) L 12/12/18 05:30 RDW 14.7 % (11.6-15.6) 12/12/18 05:30 Plt Count 60 K/MM3 (134-434) L D 12/12/18 05:30 MPV 11.6 fl (7.5-11.1) H 12/12/18 05:30 Absolute Neuts (auto) 7.2 K/mm3 (1.5-8.0) 12/12/18 05:30 Total Counted 100 12/09/18 05:15 Neutrophils % 77.6 % (42.8-82.8) 12/12/18 05:30 Neutrophils % (Manual) 85.0 % (42.8-82.8) H 12/09/18 05:15 Band Neutrophils % 2.0 % 12/09/18 05:15 Lymphocytes % 13.8 % (8-40) 12/12/18 05:30 Lymphocytes % (Manual) 9.0 % (8-40) 12/09/18 05:15 Monocytes % 5.4 % (3.8-10.2) 12/12/18 05:30 Monocytes % (Manual) 3 % (3.8-10.2) L 12/09/18 05:15 Eosinophils % 2.8 % (0-4.5) 12/12/18 05:30 Eosinophils % (Manual) 1.0 % (0-4.5) 12/09/18 05:15 Basophils % 0.4 % (0-2.0) 12/12/18 05:30 Basophils % (Manual) 0.0 % (0-2.0) 12/06/18 05:15 Myelocytes % (Man) 0 % (0-2) 12/06/18 05:15 Promyelocytes % (Man) 0 % (0-2) 12/06/18 05:15 Blast Cells % (Manual) 0 % (0-0) 12/06/18 05:15 Nucleated RBC % 0 % (0-0) 12/12/18 05:30 Metamyelocytes 0 % (0-2) 12/06/18 05:15 Hypochromia 0 12/07/18 05:15 Platelet Estimate Decreased 12/07/18 05:15 Platelet Comment Present 12/05/18 05:30 Polychromasia 0 12/07/18 05:15 Poikilocytosis 0 12/07/18 05:15 Anisocytosis 1+ 12/07/18 05:15 Microcytosis 0 12/07/18 05:15 Macrocytosis 1+ 12/09/18 05:15 Spherocytes 2+ 12/06/18 05:15 Tear Drop Cells 1+ 12/07/18 05:15 Ovalocytes 1+ 12/07/18 05:15 Stomatocytes 1+ 12/05/18 05:30 Fragmented RBCs 1+ 12/07/18 05:15 Sodium 153 mmol/L (136-145) H 12/12/18 05:30 Potassium 3.4 mmol/L (3.5-5.1) L 12/12/18 05:30 Chloride 112 mmol/L (98-107) H 12/12/18 05:30 Carbon Dioxide 36 mmol/L (21-32) H 12/12/18 05:30 Anion Gap 5 MMOL/L (8-16) L 12/12/18 05:30 BUN 47 mg/dL (7-18) H 12/12/18 05:30 Creatinine 1.1 mg/dL (0.55-1.3) 12/12/18 05:30 Creat Clearance w eGFR 51.76 (>60) 12/12/18 05:30 POC Glucometer 61.72381 UNITS (80-120) 12/12/18 06:35 Random Glucose 91 mg/dL (74-106) 12/12/18 05:30 Hemoglobin A1c % 7.3 % (4.2-6.3) H 11/24/18 09:54 Lactic Acid 1.9 mmol/L (0.4-2.0) 11/24/18 15:28 Calcium 8.4 mg/dL (8.5-10.1) L 12/12/18 05:30 Phosphorus 2.5 mg/dL (2.5-4.9) 12/12/18 05:30 Magnesium 2.0 mg/dL (1.8-2.4) 12/12/18 05:30 Total Bilirubin 1.2 mg/dL (0.2-1) H 12/12/18 05:30 AST 35 U/L (15-37) 12/12/18 05:30 ALT 39 U/L (13-61) 12/12/18 05:30 Alkaline Phosphatase 100 U/L (45-117) 12/12/18 05:30 Creatine Kinase 38 IU/L (26-192) 11/23/18 16:40 Troponin I 0.07 ng/ml (0.00-0.05) H 12/03/18 12:10 B-Natriuretic Peptide 2700.4 pg/ml (5-125) H 11/28/18 05:15 Total Protein 5.5 g/dl (6.4-8.2) L 12/12/18 05:30 Total Protein (PEP) 6.0 g/dL (6.0-8.5) 11/26/18 05:30 Albumin 2.5 g/dl (3.4-5.0) L 12/12/18 05:30 Albumin (PEP) 3.1 gm/dl (2.9-4.4) 11/26/18 05:30 Globulin 2.9 g/dL (2.2-3.9) 11/26/18 05:30 Albumin/Globulin Ratio 1.1 (0.7-1.7) 11/26/18 05:30 Beta Globulins 1.0 gm/dL (0.7-1.3) 11/26/18 05:30 Triglycerides 151 mg/dL (0-150) H 11/24/18 09:54 Cholesterol 168 mg/dL (50-200) 11/24/18 09:54 Total LDL Cholesterol 108 mg/dL (5-100) H 11/24/18 09:54 HDL Cholesterol 31 mg/dL (40-60) L 11/24/18 09:54 Angiotensin Convert Enz 8 U/L (14-82) L 11/27/18 09:05 TSH 1.03 uIU/ml (0.358-3.74) 11/24/18 09:54 Abnormal Lab Results 12/11/18 12/12/18 12/12/18 15:30 05:30 05:30 MCV 99.6 H MCHC 31.7 L Plt Count 60 L D MPV 11.6 H ABG pCO2 at Pt Temp ABG pO2 at Pt Temp ABG HCO3 ABG Base Excess Sodium 153 H Potassium 3.4 L Chloride 112 H Carbon Dioxide 36 H Anion Gap 5 L BUN 47 H Calcium 8.4 L Total Bilirubin 1.2 H Total Protein 5.5 L Albumin 2.5 L Urine Protein 2+ H Urine Blood 2+ H Urine Urobilinogen 4.0 e.u/dl H Ur Leukocyte Esterase 2+ H 12/12/18 06:00 MCV MCHC Plt Count MPV ABG pCO2 at Pt Temp 52.8 H ABG pO2 at Pt Temp 59.9 L ABG HCO3 34.6 H ABG Base Excess 8.5 H Sodium Potassium Chloride Carbon Dioxide Anion Gap BUN Calcium Total Bilirubin Total Protein Albumin Urine Protein Urine Blood Urine Urobilinogen Ur Leukocyte Esterase Laboratory Results - last 24 hr 12/11/18 12/11/18 12/11/18 15:30 16:33 22:09 WBC RBC Hgb Hct MCV MCH MCHC RDW Plt Count MPV Absolute Neuts (auto) Neutrophils % Lymphocytes % Monocytes % Eosinophils % Basophils % Nucleated RBC % Puncture Site ABG pH ABG pCO2 at Pt Temp ABG pO2 at Pt Temp ABG HCO3 ABG O2 Sat (Measured) ABG O2 Content ABG Base Excess Mendoza Test O2 Delivery Device Oxygen Flow Rate Vent Rate Mechanical Rate Pressure Support Vent Sodium Potassium Chloride Carbon Dioxide Anion Gap BUN Creatinine Creat Clearance w eGFR POC Glucometer 114.74661 134.12478 Random Glucose Calcium Phosphorus Magnesium Total Bilirubin AST ALT Alkaline Phosphatase Total Protein Albumin Urine Color Bonnie Urine Appearance Cloudy Urine pH 7.0 D Ur Specific Sunset 1.016 Urine Protein 2+ H Urine Glucose (UA) Negative Urine Ketones Negative Urine Blood 2+ H Urine Nitrite Negative Urine Bilirubin Negative Urine Urobilinogen 4.0 e.u/dl H Ur Leukocyte Esterase 2+ H Urine WBC (Auto) 276 Urine RBC (Auto) 25 Ur Epithelial Cells Many Urine Bacteria Rare Urine Mucus Rare 12/12/18 12/12/18 12/12/18 05:30 05:30 06:00 WBC 9.3 RBC 4.39 Hgb 13.9 Hct 43.8 MCV 99.6 H MCH 31.6 MCHC 31.7 L RDW 14.7 Plt Count 60 L D MPV 11.6 H Absolute Neuts (auto) 7.2 Neutrophils % 77.6 Lymphocytes % 13.8 Monocytes % 5.4 Eosinophils % 2.8 Basophils % 0.4 Nucleated RBC % 0 Puncture Site Right brachial ABG pH 7.43 ABG pCO2 at Pt Temp 52.8 H ABG pO2 at Pt Temp 59.9 L ABG HCO3 34.6 H ABG O2 Sat (Measured) 90.0 ABG O2 Content 21.0 ABG Base Excess 8.5 H Mendoza Test Positive O2 Delivery Device Bipap Oxygen Flow Rate 50% Vent Rate 18 Mechanical Rate Yes Pressure Support Vent 12/8 Sodium 153 H Potassium 3.4 L Chloride 112 H Carbon Dioxide 36 H Anion Gap 5 L BUN 47 H Creatinine 1.1 Creat Clearance w eGFR 51.76 POC Glucometer Random Glucose 91 Calcium 8.4 L Phosphorus 2.5 Magnesium 2.0 Total Bilirubin 1.2 H AST 35 ALT 39 Alkaline Phosphatase 100 Total Protein 5.5 L Albumin 2.5 L Urine Color Urine Appearance Urine pH Ur Specific Sunset Urine Protein Urine Glucose (UA) Urine Ketones Urine Blood Urine Nitrite Urine Bilirubin Urine Urobilinogen Ur Leukocyte Esterase Urine WBC (Auto) Urine RBC (Auto) Ur Epithelial Cells Urine Bacteria Urine Mucus 12/12/18 06:35 WBC RBC Hgb Hct MCV MCH MCHC RDW Plt Count MPV Absolute Neuts (auto) Neutrophils % Lymphocytes % Monocytes % Eosinophils % Basophils % Nucleated RBC % Puncture Site ABG pH ABG pCO2 at Pt Temp ABG pO2 at Pt Temp ABG HCO3 ABG O2 Sat (Measured) ABG O2 Content ABG Base Excess Mendoza Test O2 Delivery Device Oxygen Flow Rate Vent Rate Mechanical Rate Pressure Support Vent Sodium Potassium Chloride Carbon Dioxide Anion Gap BUN Creatinine Creat Clearance w eGFR POC Glucometer 61.91786 Random Glucose Calcium Phosphorus Magnesium Total Bilirubin AST ALT Alkaline Phosphatase Total Protein Albumin Urine Color Urine Appearance Urine pH Ur Specific Sunset Urine Protein Urine Glucose (UA) Urine Ketones Urine Blood Urine Nitrite Urine Bilirubin Urine Urobilinogen Ur Leukocyte Esterase Urine WBC (Auto) Urine RBC (Auto) Ur Epithelial Cells Urine Bacteria Urine Mucus Physical Exam more awake - on bipap lungs- Bilateral breath sounds anteriorly cvs- s1, s2 rrr abd - soft / obese ext- + edema a/p Respiratory failure- Hypernatremia- better Diabetes-- hypo-- decrease insulin dose ETOH abuse Renal failure + ve NV 3/ P anca, -ve cnca ya ? biopsy ? discussed with icu/ renal rheumatology on case consider nutrition overall condition remains very gaurded will follow Problem List - Problems (1) Acute respiratory failure with hypoxia and hypercapnia Code(s): J96.01 - ACUTE RESPIRATORY FAILURE WITH HYPOXIA; J96.02 - ACUTE RESPIRATORY FAILURE WITH HYPERCAPNIA (2) Atrial flutter Code(s): I48.92 - UNSPECIFIED ATRIAL FLUTTER Qualifiers: Atrial flutter type: unspecified Qualified Code(s): I48.92 - Unspecified atrial flutter (3) Bilateral lower extremity edema Code(s): R60.0 - LOCALIZED EDEMA (4) Diabetes Code(s): E11.9 - TYPE 2 DIABETES MELLITUS WITHOUT COMPLICATIONS (5) Elevated LFTs Code(s): R94.5 - ABNORMAL RESULTS OF LIVER FUNCTION STUDIES (6) Hyperlipidemia Code(s): E78.5 - HYPERLIPIDEMIA, UNSPECIFIED (7) Morbid obesity Code(s): E66.01 - MORBID (SEVERE) OBESITY DUE TO EXCESS CALORIES (8) Acute renal failure Code(s): N17.9 - ACUTE KIDNEY FAILURE, UNSPECIFIED (9) Pulmonary hypertension Code(s): I27.20 - PULMONARY HYPERTENSION, UNSPECIFIED
--- NOTE | 2018-12-12 12:12 | PN ---
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, Physician History of Present Illness: Pt seen and examined at bedside. She remains in the ICU. She is not able to take in food. She remain on oxygen. - Current Medication List Current Medications: Active Medications Albuterol Sulfate (Ventolin 0.083% Nebulizer Soln -) 1 amp NEB Q6H PRN PRN Reason: SHORT OF BREATH/WHEEZING Bisacodyl (Dulcolax Suppository -) 10 mg RC DAILY [facility] Last Admin: 12/11/18 11:36 Dose: 10 mg Chlorhexidine Gluconate (Peridex -) 15 ml MM BID [facility] Last Admin: 12/12/18 09:17 Dose: Not Given Cyanocobalamin (Vitamin B12 -) 100 mcg PO DAILY [facility] Last Admin: 12/12/18 09:15 Dose: 100 mcg Digoxin (Lanoxin Injection -) 0.125 mg IVPUSH DAILY [facility] Last Admin: 12/12/18 09:15 Dose: 0.125 mg Docusate Sodium (Colace Liquid -) 300 mg NGT HS [facility] Last Admin: 12/11/18 23:02 Dose: 300 mg Fat Emulsion Intravenous (Intralipid -) 250 ml IV DAILY@2200 [facility] Folic Acid (Folic Acid -) 1 mg PO DAILY [facility] Last Admin: 12/12/18 09:15 Dose: 1 mg Gabapentin (Neurontin -) 100 mg PO DAILY [facility] Last Admin: 12/12/18 09:17 Dose: 100 mg Heparin Sodium (Porcine) (Heparin -) 5,000 unit SQ TID [facility] Last Admin: 12/12/18 06:51 Dose: 5,000 unit Famotidine/Sodium Chloride (Pepcid 20 Mg Premixed Ivpb -) 20 mg in 50 mls @ 100 mls/hr IVPB DAILY [facility] Last Admin: 12/12/18 09:13 Dose: 100 mls/hr Amino Acids (Clinimix -) 1,000 mls @ 84 mls/hr IV Q12H [facility] Insulin Aspart (Novolog Vial Sliding Scale -) 1 vial SQ ACHS [facility]; Protocol Last Admin: 12/12/18 11:39 Dose: 2 units Insulin Detemir (Levemir Vial) 8 units SQ HS [facility] Ipratropium Outlook (Atrovent 0.02% Nebulizer -) 1 amp NEB RQID [facility] Last Admin: 12/12/18 11:30 Dose: 1 amp Methylprednisolone Sodium Succinate (Solu-Medrol -) 60 mg IVPUSH DAILY [facility] Last Admin: 12/12/18 09:14 Dose: 60 mg Metoprolol Tartrate (Lopressor Injection -) 5 mg IVPUSH Q4H PRN PRN Reason: HR >120 Last Admin: 12/10/18 16:30 Dose: 5 mg Metoprolol Tartrate (Lopressor -) 25 mg PO BID [facility] Last Admin: 12/12/18 09:15 Dose: 25 mg Saliva Substitute (Mouthkote Solution -) 1 applic MM Q2H PRN PRN Reason: COUGH Last Admin: 12/05/18 07:08 Dose: 1 applic Senna (Senna Oral Solution -) 8.8 mg PO HS [facility] Last Admin: 12/12/18 01:59 Dose: Not Given Thiamine HCl (Vitamin B1 Injection -) 200 mg IVPB DAILY [facility] Last Admin: 12/12/18 09:17 Dose: 200 mg - Objective Vital Signs: Vital Signs Temperature 98.8 F 12/12/18 10:00 Pulse Rate 68 12/12/18 12:00 Respiratory Rate 22 H 12/12/18 12:00 Blood Pressure 102/82 12/12/18 12:00 O2 Sat by Pulse Oximetry (%) 98 12/12/18 10:00 Constitutional: Yes: Calm Eyes: Yes: Conjunctiva Clear Cardiovascular: Yes: S1, S2 Respiratory: Yes: On Venti-Mask Gastrointestinal: Yes: Soft, Abdomen, Obese Genitourinary: Yes: Bills Present Musculoskeletal: Yes: Muscle Weakness Edema: Yes Edema: LLE: 1+, RLE: 1+ Integumentary: Yes: Venous Stasis Changes Neurological: Yes: Confusion Labs: CBC, BMP 12/12/18 05:30 12/12/18 05:30 INR, PTT INR 1.13 (0.83-1.09) H 11/23/18 16:40 - ....Imaging Chest X-ray: Report Reviewed Problem List - Problems (1) Hyperkalemia Code(s): E87.5 - HYPERKALEMIA (2) Acute on chronic respiratory failure with hypoxia and hypercapnia Code(s): J96.21 - ACUTE AND CHRONIC RESPIRATORY FAILURE WITH HYPOXIA; J96.22 - ACUTE AND CHRONIC RESPIRATORY FAILURE WITH HYPERCAPNIA (3) Acute renal failure Code(s): N17.9 - ACUTE KIDNEY FAILURE, UNSPECIFIED (4) Alcoholism Code(s): F10.20 - ALCOHOL DEPENDENCE, UNCOMPLICATED (5) Atrial flutter Code(s): I48.92 - UNSPECIFIED ATRIAL FLUTTER Qualifiers: Atrial flutter type: unspecified Qualified Code(s): I48.92 - Unspecified atrial flutter (6) Bilateral lower extremity edema Code(s): R60.0 - LOCALIZED EDEMA (7) COPD exacerbation Code(s): J44.1 - CHRONIC OBSTRUCTIVE PULMONARY DISEASE W (ACUTE) EXACERBATION Assessment/Plan Current Medications Generic Name Dose Route Start Last Admin Trade Name Freq PRN Reason Stop Dose Admin Albuterol Sulfate 1 amp 12/10/18 10:43 Ventolin 0.083% Nebulizer Soln - NEB Q6H PRN SHORT OF BREATH/WHEEZING Bisacodyl 10 mg 12/10/18 11:00 12/11/18 11:36 Dulcolax Suppository - RC 10 mg DAILY [facility] Administration Chlorhexidine Gluconate 15 ml 12/08/18 11:45 12/12/18 09:17 Peridex - MM Not Given BID [facility] Cyanocobalamin 100 mcg 12/05/18 13:00 12/12/18 09:15 Vitamin B12 - PO 100 mcg DAILY [facility] Administration Digoxin 0.125 mg 12/02/18 12:15 12/12/18 09:15 Lanoxin Injection - IVPUSH 0.125 mg DAILY [facility] Administration Docusate Sodium 300 mg 12/06/18 22:00 12/11/18 23:02 Colace Liquid - NGT 300 mg HS [facility] Administration Fat Emulsion Intravenous 250 ml 12/12/18 22:00 Intralipid - IV DAILY@2200 [facility] Folic Acid 1 mg 12/05/18 14:15 12/12/18 09:15 Folic Acid - PO 1 mg DAILY [facility] Administration Gabapentin 100 mg 11/24/18 10:00 12/12/18 09:17 Neurontin - PO 100 mg DAILY [facility] Administration Heparin Sodium (Porcine) 5,000 unit 12/11/18 14:00 12/12/18 06:51 Heparin - SQ 5,000 unit TID [facility] Administration Famotidine/Sodium Chloride 20 mg in 50 mls @ 100 mls/hr 12/10/18 10:00 09:13 Pepcid 20 Mg Premixed Ivpb - IVPB 100 mls/hr DAILY [facility] Administration Amino Acids 1,000 mls @ 84 mls/hr 12/12/18 12:00 Clinimix - IV Q12H [facility] Insulin Aspart 1 vial 12/03/18 10:32 12/12/18 11:39 Novolog Vial Sliding Scale - SQ 2 units ACHS [facility] Administration Protocol Insulin Detemir 8 units 12/12/18 10:39 Levemir Vial SQ HS [facility] Ipratropium Outlook 1 amp 12/10/18 12:00 12/12/18 11:30 Atrovent 0.02% Nebulizer - NEB 1 amp RQID [facility] Administration Methylprednisolone Sodium Succinate 60 mg 12/09/18 12:00 12/12/18 09:14 Solu-Medrol - IVPUSH 60 mg DAILY [facility] Administration Metoprolol Tartrate 5 mg 11/28/18 21:33 12/10/18 16:30 Lopressor Injection - IVPUSH 5 mg Q4H PRN Administration HR >120 Metoprolol Tartrate 25 mg 12/10/18 10:45 12/12/18 09:15 Lopressor - PO 25 mg BID [facility] Administration Saliva Substitute 1 applic 12/05/18 06:36 12/05/18 07:08 Mouthkote Solution - MM 1 applic Q2H PRN Administration COUGH Senna 8.8 mg 12/09/18 22:00 12/12/18 01:59 Senna Oral Solution - PO Not Given HS [facility] Thiamine HCl 200 mg 12/09/18 10:00 12/12/18 09:17 Vitamin B1 Injection - IVPB 200 mg DAILY [facility] Administration Impression 1. PITO 2. hyperkalemia 3. a-flutter 4. resp failure requiring bipap 5. DM 6. HTN 7. active smoker 8. etoh abuse 9. obesity 10. interstitial lung disease on CT scan 11. resp acidosis 12. COPD 13. positive pr3 14. hypernatremia Plan - renal function is improving - cont to monitor - abx for uti, follow cultures - rheum follow up, called and discussed with rheum today - previous ua has been negative for blood - ct chest today to evaluate lungs - pt has been off of aspirin - overal status has been improving - discussed with ICU team - asa on hold - will follow closely
[2018-12-12] MEDS: AMINO ACIDS 4.25%/D5W 1,000 ML IV SCH (12:25)
--- NOTE | 2018-12-12 12:56 | PN ---
Teaching Attending Note Name of Resident: Heriberto Urena ATTENDING PHYSICIAN STATEMENT I saw and evaluated the patient. I reviewed the resident's note and discussed the case with the resident. I agree with the resident's findings and plan as documented. SUBJECTIVE: Patient seen and examined in the ICU. NIPPV dependent at this point. Family agrees that she would not want a Trach and custodial mechanical support. Drowsy but arousable and able to follow simple commands. No pressors. OBJECTIVE: Intake & Output 12/09/18 12/10/18 12/11/18 12/12/18 23:59 23:59 23:59 23:59 Intake Total 1968 962 894 504 Output Total 3200 1650 1600 100 Balance -1232 -688 -706 404 Weight 251 lb 4.8 oz 248 lb 1.6 oz 246 lb 14.4 oz 241 lb 2.971 oz Last Vital Signs Temp Pulse Resp BP Pulse Ox 98.8 F 68 22 H 102/82 98 12/12/18 10:00 12/12/18 12:00 12/12/18 12:00 12/12/18 12:00 12/12/18 10:00 Active Medications Albuterol Sulfate (Ventolin 0.083% Nebulizer Soln -) 1 amp NEB Q6H PRN PRN Reason: SHORT OF BREATH/WHEEZING Bisacodyl (Dulcolax Suppository -) 10 mg RC DAILY [facility] [place] Last Admin: 12/11/18 11:36 Dose: 10 mg Chlorhexidine Gluconate (Peridex -) 15 ml MM BID [facility] [place] Last Admin: 12/12/18 09:17 Dose: Not Given Cyanocobalamin (Vitamin B12 -) 100 mcg PO DAILY [facility] [place] Last Admin: 12/12/18 09:15 Dose: 100 mcg Digoxin (Lanoxin Injection -) 0.125 mg IVPUSH DAILY [facility] [place] Last Admin: 12/12/18 09:15 Dose: 0.125 mg Docusate Sodium (Colace Liquid -) 300 mg NGT HS [facility] [place] Last Admin: 12/11/18 23:02 Dose: 300 mg Folic Acid (Folic Acid -) 1 mg PO DAILY [facility] [place] Last Admin: 12/12/18 09:15 Dose: 1 mg Gabapentin (Neurontin -) 100 mg PO DAILY [facility] [place] Last Admin: 12/12/18 09:17 Dose: 100 mg Heparin Sodium (Porcine) (Heparin -) 5,000 unit SQ TID [facility] [place] Last Admin: 12/12/18 06:51 Dose: 5,000 unit Famotidine/Sodium Chloride (Pepcid 20 Mg Premixed Ivpb -) 20 mg in 50 mls @ 100 mls/hr IVPB DAILY [facility] [place] Last Admin: 12/12/18 09:13 Dose: 100 mls/hr Amino Acids (Clinimix -) 1,000 mls @ 84 mls/hr IV Q12H [facility] [place] Last Admin: 12/12/18 12:25 Dose: 84 mls/hr Fat Emulsion Intravenous (Intralipid -) 250 mls @ 20.833 mls/hr IV DAILY@2200 [facility] [place] Insulin Aspart (Novolog Vial Sliding Scale -) 1 vial SQ ACHS [facility] [place]; Protocol Last Admin: 12/12/18 11:39 Dose: 2 units Insulin Detemir (Levemir Vial) 8 units SQ HS [facility] [place] Ipratropium [place] (Atrovent 0.02% Nebulizer -) 1 amp NEB RQID [facility] [place] Last Admin: 12/12/18 11:30 Dose: 1 amp Methylprednisolone Sodium Succinate (Solu-Medrol -) 60 mg IVPUSH DAILY [facility] [place] Last Admin: 12/12/18 09:14 Dose: 60 mg Metoprolol Tartrate (Lopressor Injection -) 5 mg IVPUSH Q4H PRN PRN Reason: HR >120 Last Admin: 12/10/18 16:30 Dose: 5 mg Metoprolol Tartrate (Lopressor -) 25 mg PO BID [facility] [place] Last Admin: 12/12/18 09:15 Dose: 25 mg Saliva Substitute (Mouthkote Solution -) 1 applic MM Q2H PRN PRN Reason: COUGH Last Admin: 12/05/18 07:08 Dose: 1 applic Senna (Senna Oral Solution -) 8.8 mg PO HS [facility] [place] Last Admin: 12/12/18 01:59 Dose: Not Given Thiamine HCl (Vitamin B1 Injection -) 200 mg IVPB DAILY [facility] [place] Last Admin: 12/12/18 09:17 Dose: 200 mg Gen: somnolent but arousable Heart: RRR Lung: decreased breath sounds at the bases Abd: softly distended, +ascites Ext: trace edema Laboratory Results - last 24 hr 12/11/18 12/11/18 12/11/18 11:33 15:30 16:33 WBC RBC Hgb Hct MCV MCH MCHC RDW Plt Count MPV Absolute Neuts (auto) Neutrophils % Lymphocytes % Monocytes % Eosinophils % Basophils % Nucleated RBC % Puncture Site ABG pH ABG pCO2 at Pt Temp ABG pO2 at Pt Temp ABG HCO3 ABG O2 Sat (Measured) ABG O2 Content ABG Base Excess Mendoza Test O2 Delivery Device Oxygen Flow Rate Vent Rate Mechanical Rate Pressure Support Vent Sodium Potassium Chloride Carbon Dioxide Anion Gap BUN Creatinine Creat Clearance w eGFR POC Glucometer 140.41647 114.88786 Random Glucose Calcium Phosphorus Magnesium Total Bilirubin AST ALT Alkaline Phosphatase Total Protein Albumin Urine Color Bonnie Urine Appearance Cloudy Urine pH 7.0 D Ur Specific Douglass 1.016 Urine Protein 2+ H Urine Glucose (UA) Negative Urine Ketones Negative Urine Blood 2+ H Urine Nitrite Negative Urine Bilirubin Negative Urine Urobilinogen 4.0 e.u/dl H Ur Leukocyte Esterase 2+ H Urine WBC (Auto) 276 Urine RBC (Auto) 25 Ur Epithelial Cells Many Urine Bacteria Rare Urine Mucus Rare 12/11/18 12/12/18 12/12/18 22:09 05:30 05:30 WBC 9.3 RBC 4.39 Hgb 13.9 Hct 43.8 MCV 99.6 H MCH 31.6 MCHC 31.7 L RDW 14.7 Plt Count 60 L D MPV 11.6 H Absolute Neuts (auto) 7.2 Neutrophils % 77.6 Lymphocytes % 13.8 Monocytes % 5.4 Eosinophils % 2.8 Basophils % 0.4 Nucleated RBC % 0 Puncture Site ABG pH ABG pCO2 at Pt Temp ABG pO2 at Pt Temp ABG HCO3 ABG O2 Sat (Measured) ABG O2 Content ABG Base Excess Mendoza Test O2 Delivery Device Oxygen Flow Rate Vent Rate Mechanical Rate Pressure Support Vent Sodium 153 H Potassium 3.4 L Chloride 112 H Carbon Dioxide 36 H Anion Gap 5 L BUN 47 H Creatinine 1.1 Creat Clearance w eGFR 51.76 POC Glucometer 134.64626 Random Glucose 91 Calcium 8.4 L Phosphorus 2.5 Magnesium 2.0 Total Bilirubin 1.2 H AST 35 ALT 39 Alkaline Phosphatase 100 Total Protein 5.5 L Albumin 2.5 L Urine Color Urine Appearance Urine pH Ur Specific Douglass Urine Protein Urine Glucose (UA) Urine Ketones Urine Blood Urine Nitrite Urine Bilirubin Urine Urobilinogen Ur Leukocyte Esterase Urine WBC (Auto) Urine RBC (Auto) Ur Epithelial Cells Urine Bacteria Urine Mucus 12/12/18 12/12/18 12/12/18 06:00 06:35 11:37 WBC RBC Hgb Hct MCV MCH MCHC RDW Plt Count MPV Absolute Neuts (auto) Neutrophils % Lymphocytes % Monocytes % Eosinophils % Basophils % Nucleated RBC % Puncture Site Right brachial ABG pH 7.43 ABG pCO2 at Pt Temp 52.8 H ABG pO2 at Pt Temp 59.9 L ABG HCO3 34.6 H ABG O2 Sat (Measured) 90.0 ABG O2 Content 21.0 ABG Base Excess 8.5 H Mendoza Test Positive O2 Delivery Device Bipap Oxygen Flow Rate 50% Vent Rate 18 Mechanical Rate Yes Pressure Support Vent 12/8 Sodium Potassium Chloride Carbon Dioxide Anion Gap BUN Creatinine Creat Clearance w eGFR POC Glucometer 61.71239 147.76153 Random Glucose Calcium Phosphorus Magnesium Total Bilirubin AST ALT Alkaline Phosphatase Total Protein Albumin Urine Color Urine Appearance Urine pH Ur Specific Douglass Urine Protein Urine Glucose (UA) Urine Ketones Urine Blood Urine Nitrite Urine Bilirubin Urine Urobilinogen Ur Leukocyte Esterase Urine WBC (Auto) Urine RBC (Auto) Ur Epithelial Cells Urine Bacteria Urine Mucus ASSESSMENT AND PLAN: Acute on Chronic Hypoxic and Hypercapneic Respiratory Failure improving Acute COPD Exacerbation Morbid Obesity Obstructive Sleep Apnea/Obesity Hypoventilation Syndrome Suspect Right Heart Failure Volume Overload Mediastinal Lymphadenopathy Atrial Fibrillation with RVR Cellulitis treated Acute Kidney Injury Alcohol Abuse - check ammonia level - rate control - continue anticoagulation - continue medrol at current dose - inhaled bronchodilators but minimize beta agonists - lasix as needed - completed antibiotics - monitor urine output, creatinine - NIPPV as needed to assist in work of breathing - LTAC evaluation - DVT/GI prophylaxis - continue ICU monitoring Dr Dixon Critical care time spent in reviewing chart, evaluating patient and formulating plan 35 min
--- NOTE | 2018-12-12 14:03 | PN ---
Physical Exam: SUBJECTIVE: Patient seen and examined. Not oriented. OBJECTIVE: Vital Signs Period Temp Pulse Resp BP Sys/Gregorio Pulse Ox Last 24 Hr 98.2 F-99.3 F 55-69 19-22 102-156/51-92 96-100 GENERAL: awake, following commands, no acute distress HEAD: NC/AT EYES: PERRL, EOMI ENT: Moist mucous membranes. maxillary lip wound (hemostatic) NECK: supple LUNGS: b/l coarse breath sounds throughout with good air entry HEART: regular rhythm, regular rate, no murmur appreciated ABDOMEN: Soft, protuberant, edematous, mild distended, normoactive bowel sounds BUE: B/l hand swelling, not likely cellulitis, sensation intact LOWER EXTREMITIES: 2+ pulses, warm, well-perfused NEUROLOGICAL: following simple commands, moves all extremities spontaneously, hoarse speech s/p extubation improving ASSESSMENT/PLAN: The pt is a 53F with a PMH of COPD, acute/chronic EtOH abuse (several glasses of rum daily), long-term tobacco abuse, TRINH, morbid obesity, DM, HTN, hyperlipidemia, cellulites, metabolic syndrome who was transferred to ICU due to worsening respiratory failure 11/27 - Patient w/ worsening mentation and respiratory status throughout the morning. Worsening repeat ABG. Decision was made to intubate for hypercapnic/ hypoxic respiratory failure 11/28 - Vented, ABG improving 12/01 - Extubated to HFNC. OGT D/C'ed. 12/02 - +PR3, plan for kidney bx in 7d (ASA held) 12/03 - Methylprednisolone 12/04 - Trial high flow, swallow eval 12/05 - Intubated, OGT placed, TF started; CT chest w/o for eval of ILD 12/07 - Inc. free water flush 12/08 - Cont. free water, dec thiamine, plan vent wean tomorrow 12/09 - Extubated; Inc. bowel regimen; Steroids weaned 12/11 - On BiPap overnight, hypercapnia resolving, UA, Ucx 12/12 - Schedule family meeting for Saturday at 1300; start PPN Neuro ETOH abuse, dependence -Patient no longer likely to withdraw given length of time in hospital Tobacco abuse -Educated AMS w/o focal deficit -Will send ammonia -UA/UCx CV Cardiology Dr Ronny Santana-flutthowie -Apixaban -Digoxin HTN -Antihypertensives held 2/2 relative hypotension Hypervolemia w/ pulmonary congestion -Lasix 40mg IV PRN Pulm Acute hypercapnic respiratory failure due to pulmonary edema can Not R/O CHF vs copd exacerbation -Continue symbicort -Continue broncodilators -s/p intubation 11/27/2018 for acute decompensation --Extubated 12/01/2018 -Patient was on continuous BiPap, failed wean to HFNC --Intubated 12/05/2018 for hypercapnic respiratory failure -Extubated 12/09/2018 -BiPap PRN ILD possible on initial CT -Methylprednisolone 80mg IV daily -F/u CT chest w/o evidence of ILD GI Nutrition -Pend speech/swallow eval for PO intake -Thiamine, folate, B12 daily -Bowel regimen: docusate, senna, miralax, bisacodyl GI Ppx -Pepcid Ascites -AMS -Will obtain RUQ US for hepatic evaluation PITO -Avoid nephrotoxic agents -Nephrology consulted -Improving AMS -Will obtain UA, Ucx Hyperkalemia -Resolved Hypernatremia -Improving, will encourage PO intake when cleared Nutrition -PPN UTI -Levaquin 750mg IV daily -Will D/C arvizu Heme DVT Ppx: scds, eliquis ID BLE Cellulitis -Not likely infectious in etiology -s/p Abx course -no further abx at this time Endo DM -BGM ACHS -ISS increased on 12/03 2/2 poor glycemic control Morbid obesity -Educated about low calories diet , losing weight , daily exercise Rheum Persistently elevated PR3 and p-ANCA -ASCA per Renal and f/u w/ Dr. Melton for further recommendations --Will obtain repeat CT chest, high resolution --Renal and Pulm function improving, not ideal time for biopsy as likelihood of sampling diseased tissue low LTD Arvizu- 12/11/2018 PIV Dispo: Patient continues to require ICU level of care. Visit type - Emergency Visit Emergency Visit: Yes ED Registration Date: 11/23/18 Care time: The patient presented to the Emergency Department on the above date and was hospitalized for further evaluation of their emergent condition. - New Patient This patient is new to me today: No - Critical Care Critical Care patient: Yes Total Critical Care Time (in minutes): 35 Critical Care Statement: The care of this patient involved high complexity decision making to prevent further life threatening deterioration of the patient 's condition and/or to evaluate & treat vital organ system(s) failure or risk of failure.
[2018-12-12] MEDS: BISACODYL 10 MG SUPP.RECT RC SCH (15:07)
[2018-12-12] MEDS: FAT EMULSIONS 250 ML IV SCH (21:16)
[2018-12-12] MEDS: DOCUSATE NA 100 MG/10 ML UNIT-DOSE CUPS NGT SCH (21:18)
[2018-12-12] MEDS ORDERED: FAT EMULSIONS 20% 250 ML PREMIX INFUS.BAG IV SCH (22:00)
[2018-12-12] MEDS: INSULIN (LEVEMIR) 100 UNITS/ML UNITS SQ SCH (22:49)
--- NOTE | 2018-12-12 23:31 | PN ---
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, Physician Chief Complaint: Pt on Bipap; mumbles words, making communication difficult; very little body movement. History of Present Illness: 53 YO white woman with h/o COPD (placed on steroid course 2 days ago without relief) acute/chronic alcoholism (several glasses of rum daily), long-term cigarette smoker, sleep apnea, morbid obesity, DM, HTN, hyperlipidemia, chronic erythema of LEs with hx cellulitis, metabolic syndrome, who is now admitted with SOB and wheezing similar to her prior COPD exacerbation. She additionally notes awakening in the middle of the night last night with visual hallucinations. She additionally notes abdominal swelling recently, believes she has an abdominal infection but does not know what kind. Denies h/o heart arrhythmia. She has noticed her lips are more blue than normal. - Current Medication List Current Medications: Active Medications Albuterol Sulfate (Ventolin 0.083% Nebulizer Soln -) 1 amp NEB Q6H PRN PRN Reason: SHORT OF BREATH/WHEEZING Bisacodyl (Dulcolax Suppository -) 10 mg RC DAILY [facility] Last Admin: 12/12/18 15:07 Dose: Not Given Chlorhexidine Gluconate (Peridex -) 15 ml MM BID [facility] Last Admin: 12/12/18 22:48 Dose: Not Given Cyanocobalamin (Vitamin B12 -) 100 mcg PO DAILY [facility] Last Admin: 12/12/18 09:15 Dose: 100 mcg Digoxin (Lanoxin Injection -) 0.125 mg IVPUSH DAILY [facility] Last Admin: 12/12/18 09:15 Dose: 0.125 mg Docusate Sodium (Colace Liquid -) 300 mg NGT HS [facility] Last Admin: 12/12/18 21:18 Dose: 300 mg Folic Acid (Folic Acid -) 1 mg PO DAILY [facility] Last Admin: 12/12/18 09:15 Dose: 1 mg Gabapentin (Neurontin -) 100 mg PO DAILY [facility] Last Admin: 12/12/18 09:17 Dose: 100 mg Heparin Sodium (Porcine) (Heparin -) 5,000 unit SQ TID [facility] Last Admin: 12/12/18 21:17 Dose: 5,000 unit Famotidine/Sodium Chloride (Pepcid 20 Mg Premixed Ivpb -) 20 mg in 50 mls @ 100 mls/hr IVPB DAILY [facility] Last Admin: 12/12/18 09:13 Dose: 100 mls/hr Amino Acids (Clinimix -) 1,000 mls @ 84 mls/hr IV Q12H [facility] Last Admin: 12/12/18 12:25 Dose: 84 mls/hr Fat Emulsion Intravenous (Intralipid -) 250 mls @ 20.833 mls/hr IV DAILY@2200 [facility] Last Admin: 12/12/18 21:16 Dose: 20.833 mls/hr Insulin Aspart (Novolog Vial Sliding Scale -) 1 vial SQ [facility]; Protocol Last Admin: 12/12/18 22:56 Dose: 4 units Insulin Detemir (Levemir Vial) 8 units SQ [facility] Last Admin: 12/12/18 22:49 Dose: 8 units Ipratropium [place] (Atrovent 0.02% Nebulizer -) 1 amp NEB RQID [facility] Last Admin: 12/12/18 21:29 Dose: 1 amp Methylprednisolone Sodium Succinate (Solu-Medrol -) 60 mg IVPUSH DAILY [facility] Last Admin: 12/12/18 09:14 Dose: 60 mg Metoprolol Tartrate (Lopressor Injection -) 5 mg IVPUSH Q4H PRN PRN Reason: HR >120 Last Admin: 12/10/18 16:30 Dose: 5 mg Metoprolol Tartrate (Lopressor -) 25 mg PO BID [facility] Last Admin: 12/12/18 21:18 Dose: 25 mg Saliva Substitute (Mouthkote Solution -) 1 applic MM Q2H PRN PRN Reason: COUGH Last Admin: 12/05/18 07:08 Dose: 1 applic Senna (Senna Oral Solution -) 8.8 mg PO [facility] Last Admin: 12/12/18 01:59 Dose: Not Given Thiamine HCl (Vitamin B1 Injection -) 200 mg IVPB DAILY [facility] Last Admin: 12/12/18 09:17 Dose: 200 mg - Objective Vital Signs: Vital Signs Temperature 97.6 F 12/12/18 18:25 Pulse Rate 61 12/12/18 22:00 Respiratory Rate 20 12/12/18 22:00 Blood Pressure 164/80 12/12/18 22:00 O2 Sat by Pulse Oximetry (%) 96 12/12/18 22:32 Constitutional: Yes: Anxious, Obese Eyes: Yes: WNL HENT: Yes: Other Neck: Yes: Decreased ROM Cardiovascular: Yes: Pulse Irregular, S1 (varies in intensity), S2 Respiratory: Yes: Diminished, On BiPap, Tachypnea Gastrointestinal: Yes: Abdomen, Obese, Distention Genitourinary: No: Anuria Breast(s): Yes: WNL Musculoskeletal: Yes: Muscle Weakness Extremities: Yes: Cool Edema: No Peripheral Pulses WNL: Yes Integumentary: Yes: Erythema (mild) Neurological: Yes: Lethargy, Weakness Psychiatric: Yes: Other (alcoholism) Labs: CBC, BMP 12/12/18 05:30 12/12/18 05:30 INR, PTT INR 1.13 (0.83-1.09) H 11/23/18 16:40 - ....Imaging Chest X-ray: Image Reviewed (improving (mild) vascular congestion; left pleural effusion; cardiomegaly) Other: Image Reviewed (Telemetry: AFlutter with variable blcok (3:1, 4:))) Problem List - Problems (1) Atrial flutter Assessment/Plan: On metoprolol tartrate PO for HR control. On digoxin 0.125 mg daily; keep level 0.5-1.0 (presently reduced from 1.59 to 0.76) On apixaban for anticoagulation. ECHO: unable to assess LVEF; repeat when pt able to turn on left side for better windows (or get MUGA). Code(s): I48.92 - UNSPECIFIED ATRIAL FLUTTER Qualifiers: Atrial flutter type: unspecified Qualified Code(s): I48.92 - Unspecified atrial flutter (2) Morbid obesity Code(s): E66.01 - MORBID (SEVERE) OBESITY DUE TO EXCESS CALORIES (3) HTN (hypertension) Assessment/Plan: On metoprolol tartrate PO. Improving renal status: consider adding ACEI or ARB (HTN; ?systolic CHF; DM). F/u ECHO for LVEF, wall thickness, chamber sizes, valve status when able to position pt for better windows. Consider MUGA if unable to ottain LVEF from ECHO. Code(s): I10 - ESSENTIAL (PRIMARY) HYPERTENSION (4) Diabetes Assessment/Plan: on Levemir. Consider starting ACEI or ARB (HTN; ?systolic CHF; DM; improving renal status). Code(s): E11.9 - TYPE 2 DIABETES MELLITUS WITHOUT COMPLICATIONS (5) Streeter cardiac risk >20% in next 10 years Code(s): Z91.89 - OTH PERSONAL RISK FACTORS, NOT ELSEWHERE CLASSIFIED (6) Alcoholism Assessment/Plan: On Vit B12 and Folate Code(s): F10.20 - ALCOHOL DEPENDENCE, UNCOMPLICATED (7) Ascites Code(s): R18.8 - OTHER ASCITES (8) Interstitial lung disease Assessment/Plan: Moderate pulmonary HTN and RV hypokinesis. TRINH. On Bipap. Code(s): J84.9 - INTERSTITIAL PULMONARY DISEASE, UNSPECIFIED (9) CHF (congestive heart failure) Assessment/Plan: Elevated BNP. F/u BUN/Cr, electrolytes, daily weight, IS and Os,. ECHO repeat for LVEF when pt better able to cooperate (and move on left side); otherwise, consder MUGA for LVEF. Control of AF/flutter HR presently with meoprolol and digoxin. Consider start ACEI or ARB (?systolic CHF; DM; HTN). Code(s): I50.9 - HEART FAILURE, UNSPECIFIED (10) Renal dysfunction Assessment/Plan: improving status; f/u Is and Os, BUN/Cr. Code(s): N28.9 - DISORDER OF KIDNEY AND URETER, UNSPECIFIED (11) Respiratory failure Assessment/Plan: ISLD. TRINH On Bipap, Solumedrol, Atrovent, Ventolin. Code(s): J96.90 - RESPIRATORY FAILURE, UNSP, UNSP W HYPOXIA OR HYPERCAPNIA (12) Sleep apnea Code(s): G47.30 - SLEEP APNEA, UNSPECIFIED Assessment/Plan CCU time spent: 40 minutes.
--- NOTE | 2018-12-12 23:52 | PN ---
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, Physician Chief Complaint: Pt on Bipap; History of Present Illness: 53 YO white woman with h/o COPD (placed on steroid course 2 days ago without relief) acute/chronic alcoholism (several glasses of rum daily), long-term cigarette smoker, sleep apnea, morbid obesity, DM, HTN, hyperlipidemia, chronic erythema of LEs with hx cellulitis, metabolic syndrome, who is now admitted with SOB and wheezing similar to her prior COPD exacerbation. She additionally notes awakening in the middle of the night last night with visual hallucinations. She additionally notes abdominal swelling recently, believes she has an abdominal infection but does not know what kind. Denies h/o heart arrhythmia. She has noticed her lips are more blue than normal. - Current Medication List Current Medications: Active Medications Albuterol Sulfate (Ventolin 0.083% Nebulizer Soln -) 1 amp NEB Q6H PRN PRN Reason: SHORT OF BREATH/WHEEZING Bisacodyl (Dulcolax Suppository -) 10 mg RC DAILY [facility] Last Admin: 12/12/18 15:07 Dose: Not Given Chlorhexidine Gluconate (Peridex -) 15 ml MM BID [facility] Last Admin: 12/12/18 22:48 Dose: Not Given Cyanocobalamin (Vitamin B12 -) 100 mcg PO DAILY [facility] Last Admin: 12/12/18 09:15 Dose: 100 mcg Digoxin (Lanoxin Injection -) 0.125 mg IVPUSH DAILY [facility] Last Admin: 12/12/18 09:15 Dose: 0.125 mg Docusate Sodium (Colace Liquid -) 300 mg NGT HS [facility] Last Admin: 12/12/18 21:18 Dose: 300 mg Folic Acid (Folic Acid -) 1 mg PO DAILY [facility] Last Admin: 12/12/18 09:15 Dose: 1 mg Gabapentin (Neurontin -) 100 mg PO DAILY [facility] Last Admin: 12/12/18 09:17 Dose: 100 mg Heparin Sodium (Porcine) (Heparin -) 5,000 unit SQ TID [facility] Last Admin: 12/12/18 21:17 Dose: 5,000 unit Famotidine/Sodium Chloride (Pepcid 20 Mg Premixed Ivpb -) 20 mg in 50 mls @ 100 mls/hr IVPB DAILY [facility] Last Admin: 12/12/18 09:13 Dose: 100 mls/hr Amino Acids (Clinimix -) 1,000 mls @ 84 mls/hr IV Q12H [facility] Last Admin: 12/12/18 12:25 Dose: 84 mls/hr Fat Emulsion Intravenous (Intralipid -) 250 mls @ 20.833 mls/hr IV DAILY@2200 [facility] Last Admin: 12/12/18 21:16 Dose: 20.833 mls/hr Insulin Aspart (Novolog Vial Sliding Scale -) 1 vial SQ [facility]; Protocol Last Admin: 12/12/18 22:56 Dose: 4 units Insulin Detemir (Levemir Vial) 8 units SQ [facility] Last Admin: 12/12/18 22:49 Dose: 8 units Ipratropium [place] (Atrovent 0.02% Nebulizer -) 1 amp NEB RQID [facility] Last Admin: 12/12/18 21:29 Dose: 1 amp Methylprednisolone Sodium Succinate (Solu-Medrol -) 60 mg IVPUSH DAILY [facility] Last Admin: 12/12/18 09:14 Dose: 60 mg Metoprolol Tartrate (Lopressor Injection -) 5 mg IVPUSH Q4H PRN PRN Reason: HR >120 Last Admin: 12/10/18 16:30 Dose: 5 mg Metoprolol Tartrate (Lopressor -) 25 mg PO BID [facility] Last Admin: 12/12/18 21:18 Dose: 25 mg Saliva Substitute (Mouthkote Solution -) 1 applic MM Q2H PRN PRN Reason: COUGH Last Admin: 12/05/18 07:08 Dose: 1 applic Senna (Senna Oral Solution -) 8.8 mg PO [facility] Last Admin: 12/12/18 01:59 Dose: Not Given Thiamine HCl (Vitamin B1 Injection -) 200 mg IVPB DAILY [facility] Last Admin: 12/12/18 09:17 Dose: 200 mg - Objective Vital Signs: Vital Signs Temperature 97.6 F 12/12/18 18:25 Pulse Rate 61 12/12/18 22:00 Respiratory Rate 20 12/12/18 22:00 Blood Pressure 164/80 12/12/18 22:00 O2 Sat by Pulse Oximetry (%) 96 12/12/18 22:32 Constitutional: Yes: Anxious, Obese Eyes: Yes: WNL HENT: Yes: Hoarseness Neck: Yes: Decreased ROM Cardiovascular: Yes: Pulse Irregular Respiratory: Yes: On BiPap, Tachypnea Gastrointestinal: Yes: Soft, Abdomen, Obese Genitourinary: No: Anuria Breast(s): Yes: WNL Musculoskeletal: Yes: Muscle Weakness Extremities: Yes: Cool Edema: No Peripheral Pulses WNL: Yes Integumentary: Yes: Venous Stasis Changes Psychiatric: Yes: Other Labs: CBC, BMP 12/12/18 05:30 12/12/18 05:30 INR, PTT INR 1.13 (0.83-1.09) H 11/23/18 16:40 Abnormal Lab Results 12/12/18 12/12/18 12/12/18 05:30 05:30 06:00 MCV 99.6 H MCHC 31.7 L Plt Count 60 L D MPV 11.6 H ABG pCO2 at Pt Temp 52.8 H ABG pO2 at Pt Temp 59.9 L ABG HCO3 34.6 H ABG Base Excess 8.5 H Sodium 153 H Potassium 3.4 L Chloride 112 H Carbon Dioxide 36 H Anion Gap 5 L BUN 47 H Calcium 8.4 L Total Bilirubin 1.2 H Total Protein 5.5 L Albumin 2.5 L - ....Imaging Chest X-ray: Image Reviewed Other: Image Reviewed Problem List - Problems (1) Atrial flutter Assessment/Plan: On metoprolol tartrate PO for HR control. On digoxin 0.125 mg daily; keep level 0.5-1.0 (presently reduced from 1.59 to 0.76) On apixaban for anticoagulation. ECHO: unable to assess LVEF; repeat when pt able to turn on left side for better windows (or get MUGA). Code(s): I48.92 - UNSPECIFIED ATRIAL FLUTTER Qualifiers: Atrial flutter type: unspecified Qualified Code(s): I48.92 - Unspecified atrial flutter (2) Morbid obesity Code(s): E66.01 - MORBID (SEVERE) OBESITY DUE TO EXCESS CALORIES (3) HTN (hypertension) Assessment/Plan: Off pressors; BP now ;more consistently elevated. On metoprolol tartrate PO. Improving renal status: consider adding ACEI or ARB (HTN; ?systolic CHF; DM). F/u ECHO for LVEF, wall thickness, chamber sizes, valve status when able to position pt for better windows. Consider MUGA if unable to obtain LVEF from ECHO. Code(s): I10 - ESSENTIAL (PRIMARY) HYPERTENSION (4) Diabetes Assessment/Plan: on Levemir, Novolog. Consider starting ACEI or ARB (HTN, with more regularly elevated BP; ?systolic CHF; DM; improving renal status; now hypokalemic). Aggressive lipid control: start statin. Code(s): E11.9 - TYPE 2 DIABETES MELLITUS WITHOUT COMPLICATIONS (5) [place] cardiac risk >20% in next 10 years Assessment/Plan: TNI negative x 2. BP and glucose control. Keep LDL cholesterol < 70 mg/dL. Smoking cessation. Dietary consult; weight loss. Exercise will be important in the future. Coronary artery evaluation when stable (stress MIBI and/or coronary angiogram). Code(s): Z91.89 - OTH PERSONAL RISK FACTORS, NOT ELSEWHERE CLASSIFIED (6) Alcoholism Assessment/Plan: On Vit B12 and Folate Code(s): F10.20 - ALCOHOL DEPENDENCE, UNCOMPLICATED (7) Ascites Code(s): R18.8 - OTHER ASCITES (8) Interstitial lung disease Assessment/Plan: Moderate pulmonary HTN and RV hypokinesis. TRINH. O2, bronchodilators, steroids per pumonologist. Code(s): J84.9 - INTERSTITIAL PULMONARY DISEASE, UNSPECIFIED (9) CHF (congestive heart failure) Assessment/Plan: Elevated BNP. JVD. F/u BUN/Cr, electrolytes, daily weight, IS and Os,. ECHO repeat for LVEF when pt better able to cooperate (and move on left side); otherwise, consder MUGA for LVEF. Present control of AF/flutter HR with meoprolol and digoxin. Consider start ACEI or ARB (?systolic CHF; DM; HTN; hypokalemia). Code(s): I50.9 - HEART FAILURE, UNSPECIFIED (10) Renal dysfunction Assessment/Plan: improving status; f/u Is and Os, BUN/Cr. Code(s): N28.9 - DISORDER OF KIDNEY AND URETER, UNSPECIFIED (11) Respiratory failure Assessment/Plan: ISLD. TRINH On Bipap, Solumedrol, Atrovent, Ventolin. Code(s): J96.90 - RESPIRATORY FAILURE, UNSP, UNSP W HYPOXIA OR HYPERCAPNIA (12) Sleep apnea Code(s): G47.30 - SLEEP APNEA, UNSPECIFIED (13) Hyperlipidemia Assessment/Plan: LDL cholesterol 108/ HDL 31; trigly 151 mg/dL. LFTs have markedly improved; now WNL. Recommend starting statin (high [place] risk; DM); keep LDL well below 70 mg/ dL. Code(s): E78.5 - HYPERLIPIDEMIA, UNSPECIFIED Assessment/Plan CCU time spent: 35 minutes.
[2018-12-13] MEDS: AMINO ACIDS 4.25%/D5W 1,000 ML IV SCH ×2 (01:13→15:05)
[2018-12-13] MEDS: SENNOSIDES 8.8 MG/5 ML BULK BOTTLE PO SCH ×2 (01:13→21:22)
[2018-12-13] MEDS: HEPARIN NA (PORCINE) 5,000 UNITS/ML 1ML VIAL SQ SCH ×3 (05:33→21:20)
[2018-12-13] MEDS: INSULIN SLIDING SCALE (NOVOLOG) 1 VIAL SQ SCH ×4 (06:05→21:58)
[2018-12-13 06:52] LABS: BASO % 0.2 % (0-2.0); EOS % 2.1 % (0-4.5); HEMOGLOBIN 12.9 GM/dL (10.7-15.3); LYMPH % 12.7 % (8-40); MCH 31.2 pg (25.7-33.7); MCHC 31.5 g/dl (32.0-36.0); MEAN CELL VOLUME 99.1 fl (80-96); MEAN PLT VOLUME 11.6 fl (7.5-11.1); MONO % 6.3 % (3.8-10.2); NEUT % 78.7 % (42.8-82.8); PLATELET COUNT 68 K/MM3 (134-434); RBC 4.14 M/mm3 (3.60-5.2); RDW 14.4 % (11.6-15.6); WHITE BLOOD COUNT 8.3 K/mm3 (4.0-10.0)
[2018-12-13 07:07] LABS: ALBUMIN 2.3 g/dl (3.4-5.0); ALK PHOS 90 U/L (45-117); ANION GAP 5 MMOL/L (8-16); BLOOD UREA NITROGEN 43 mg/dL (7-18); CALCIUM 8.1 mg/dL (8.5-10.1); CHLORIDE 110 mmol/L (98-107); CO2 32 mmol/L (21-32); GLUCOSE,RANDOM 140 mg/dL (74-106); MAGNESIUM 1.9 mg/dL (1.8-2.4); PHOSPHOROUS 2.2 mg/dL (2.5-4.9); POTASSIUM 3.5 mmol/L (3.5-5.1); SGOT/AST 30 U/L (15-37); SGPT/ALT 36 U/L (13-61); SODIUM 147 mmol/L (136-145); TOT PROT 5.1 g/dl (6.4-8.2)
[2018-12-13] MEDS: IPRATROPIUM BR 0.02% 0.5 MG/2.5 ML VIAL.NEB. NEB SCH ×4 (07:25→20:45)
[2018-12-13] MEDS: methylPREDNISolone NA SUCC 40 MG/1 ML VIAL IVPUSH SCH (09:29)
[2018-12-13] MEDS: FOLIC ACID 1 MG TABLET (FP) PO SCH (09:29)
[2018-12-13] MEDS: GABAPENTIN 100 MG CAPSULE (FP) PO SCH (09:29)
[2018-12-13] MEDS: CYANOCOBALAMIN (VITAMIN B-12) 100 MCG TABLET PO SCH (09:29)
[2018-12-13] MEDS: METOPROLOL TARTRATE 25 MG TABLET (FP) PO SCH ×2 (09:29→21:20)
[2018-12-13] MEDS: DIGOXIN 0.5 MG/2 ML AMPUL IVPUSH SCH (09:30)
[2018-12-13] MEDS: FAMOTIDINE 20 MG/50 ML IVPB 20 MG/50 ML MG IVPB SCH (09:31)
--- NOTE | 2018-12-13 09:53 | PN ---
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 (short form) - Note 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: RENAL Pt is awake and alert remains extubated in icu responds to questions though is a little dysarthric at times Last Vital Signs Temp Pulse Resp BP Pulse Ox 98.5 F 83 15 156/69 92 L 12/13/18 08:01 12/13/18 09:30 12/13/18 08:01 12/13/18 08:01 12/13/18 08:36 lungs has bilat rhonchi chest has some dilated veins on right chest abd soft, obese, not tender ext no edema neuro a+o skin some arterial insuff changes on lower extremities skin no lesions noted Current Medications Generic Name Dose Route Start Last Admin Trade Name Freq PRN Reason Stop Dose Admin Albuterol Sulfate 1 amp 12/10/18 10:43 Ventolin 0.083% Nebulizer Soln - NEB Q6H PRN SHORT OF BREATH/WHEEZING Bisacodyl 10 mg 12/10/18 11:00 12/12/18 15:07 Dulcolax Suppository - RC Not Given DAILY [facility] Chlorhexidine Gluconate 15 ml 12/08/18 11:45 12/12/18 22:48 Peridex - MM Not Given BID [facility] Cyanocobalamin 100 mcg 12/05/18 13:00 12/13/18 09:29 Vitamin B12 - PO 100 mcg DAILY [facility] Administration Digoxin 0.125 mg 12/02/18 12:15 12/13/18 09:30 Lanoxin Injection - IVPUSH 0.125 mg DAILY [facility] Administration Docusate Sodium 300 mg 12/06/18 22:00 12/12/18 21:18 Colace Liquid - NGT 300 mg HS [facility] Administration Folic Acid 1 mg 12/05/18 14:15 12/13/18 09:29 Folic Acid - PO 1 mg DAILY [facility] Administration Gabapentin 100 mg 11/24/18 10:00 12/13/18 09:29 Neurontin - PO 100 mg DAILY [facility] Administration Heparin Sodium (Porcine) 5,000 unit 12/11/18 14:00 12/13/18 05:33 Heparin - SQ 5,000 unit TID [facility] Administration Famotidine/Sodium Chloride 20 mg in 50 mls @ 100 mls/hr 12/10/18 10:00 09:31 Pepcid 20 Mg Premixed Ivpb - IVPB 100 mls/hr DAILY [facility] Administration Amino Acids 1,000 mls @ 84 mls/hr 12/12/18 12:00 12/13/18 01:13 Clinimix - IV 84 mls/hr Q12H [facility] Administration Fat Emulsion Intravenous 250 mls @ 20.833 mls/hr 12/12/18 22:00 12/12/18 21: 16 Intralipid - IV 20.833 mls/hr DAILY@2200 [facility] Administration Levofloxacin 750 mg in 150 mls @ 150 mls/hr 12/13/18 10:00 12/13/18 09:31 Levaquin 750 Mg Premixed Ivpb - IVPB 12/20/18 09:59 150 mls/hr DAILY [facility] Administration Protocol Insulin Aspart 1 vial 12/03/18 10:32 12/13/18 06:05 Novolog Vial Sliding Scale - SQ 2 units ACHS [facility] Administration Protocol Insulin Detemir 8 units 12/12/18 10:39 12/12/18 22:49 Levemir Vial SQ 8 units HS [facility] Administration Ipratropium [place] 1 amp 12/10/18 12:00 12/13/18 07:25 Atrovent 0.02% Nebulizer - NEB 1 amp RQID [facility] Administration Methylprednisolone Sodium Succinate 60 mg 12/09/18 12:00 12/13/18 09:29 Solu-Medrol - IVPUSH 60 mg DAILY [facility] Administration Metoprolol Tartrate 5 mg 11/28/18 21:33 12/10/18 16:30 Lopressor Injection - IVPUSH 5 mg Q4H PRN Administration HR >120 Metoprolol Tartrate 25 mg 12/10/18 10:45 12/13/18 09:29 Lopressor - PO 25 mg BID [facility] Administration Saliva Substitute 1 applic 12/05/18 06:36 12/05/18 07:08 Mouthkote Solution - MM 1 applic Q2H PRN Administration COUGH Senna 8.8 mg 12/09/18 22:00 12/13/18 01:13 Senna Oral Solution - PO Not Given HS [facility] Thiamine HCl 200 mg 12/09/18 10:00 12/12/18 09:17 Vitamin B1 Injection - IVPB 200 mg DAILY [facility] Administration Impression 1. PITO 2. hyperkalemia 3. a-flutter 4. resp failure requiring bipap 5. DM 6. HTN 7. active smoker 8. etoh abuse with liver disease 9. obesity 10. interstitial lung disease on CT scan 11. resp acidosis 12. COPD 13. positive pr3 with intermittent proteinuria and hematuria 14. hypernatremia 15 hep b core pos Plan would consider biopsy of lymph nodes or kidneys when stable- may have a hep b associated disease keep hydrated agree with antibiotics hep b ig m MV
--- NOTE | 2018-12-13 10:19 | PN ---
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, Physician History of Present Illness: 53 YO white woman with h/o COPD (placed on steroid course 2 days ago without relief) acute/chronic alcoholism (several glasses of rum daily), long-term cigarette smoker, sleep apnea, morbid obesity, DM, HTN, hyperlipidemia, chronic erythema of LEs with hx cellulitis, metabolic syndrome, who is now admitted with SOB and wheezing similar to her prior COPD exacerbation. She additionally notes awakening in the middle of the night last night with visual hallucinations. She additionally notes abdominal swelling recently, believes she has an abdominal infection but does not know what kind. Denies h/o heart arrhythmia. She has noticed her lips are more blue than normal. - Current Medication List Current Medications: Active Medications Albuterol Sulfate (Ventolin 0.083% Nebulizer Soln -) 1 amp NEB Q6H PRN PRN Reason: SHORT OF BREATH/WHEEZING Bisacodyl (Dulcolax Suppository -) 10 mg RC DAILY [facility] Last Admin: 12/12/18 15:07 Dose: Not Given Chlorhexidine Gluconate (Peridex -) 15 ml MM BID [facility] Last Admin: 12/12/18 22:48 Dose: Not Given Cyanocobalamin (Vitamin B12 -) 100 mcg PO DAILY [facility] Last Admin: 12/13/18 09:29 Dose: 100 mcg Digoxin (Lanoxin Injection -) 0.125 mg IVPUSH DAILY [facility] Last Admin: 12/13/18 09:30 Dose: 0.125 mg Docusate Sodium (Colace Liquid -) 300 mg NGT HS [facility] Last Admin: 12/12/18 21:18 Dose: 300 mg Folic Acid (Folic Acid -) 1 mg PO DAILY [facility] Last Admin: 12/13/18 09:29 Dose: 1 mg Gabapentin (Neurontin -) 100 mg PO DAILY [facility] Last Admin: 12/13/18 09:29 Dose: 100 mg Heparin Sodium (Porcine) (Heparin -) 5,000 unit SQ TID [facility] Last Admin: 12/13/18 05:33 Dose: 5,000 unit Famotidine/Sodium Chloride (Pepcid 20 Mg Premixed Ivpb -) 20 mg in 50 mls @ 100 mls/hr IVPB DAILY [facility] Last Admin: 12/13/18 09:31 Dose: 100 mls/hr Amino Acids (Clinimix -) 1,000 mls @ 84 mls/hr IV Q12H [facility] Last Admin: 12/13/18 01:13 Dose: 84 mls/hr Fat Emulsion Intravenous (Intralipid -) 250 mls @ 20.833 mls/hr IV DAILY@2200 [facility] Last Admin: 12/12/18 21:16 Dose: 20.833 mls/hr Levofloxacin (Levaquin 750 Mg Premixed Ivpb -) 750 mg in 150 mls @ 150 mls/hr IVPB DAILY [facility]; Protocol Stop: 12/20/18 09:59 Last Admin: 12/13/18 09:31 Dose: 150 mls/hr Insulin Aspart (Novolog Vial Sliding Scale -) 1 vial SQ ACHS [facility]; Protocol Last Admin: 12/13/18 06:05 Dose: 2 units Insulin Detemir (Levemir Vial) 8 units SQ [facility] Last Admin: 12/12/18 22:49 Dose: 8 units Ipratropium [place] (Atrovent 0.02% Nebulizer -) 1 amp NEB RQID [facility] Last Admin: 12/13/18 07:25 Dose: 1 amp Methylprednisolone Sodium Succinate (Solu-Medrol -) 60 mg IVPUSH DAILY [facility] Last Admin: 12/13/18 09:29 Dose: 60 mg Metoprolol Tartrate (Lopressor Injection -) 5 mg IVPUSH Q4H PRN PRN Reason: HR >120 Last Admin: 12/10/18 16:30 Dose: 5 mg Metoprolol Tartrate (Lopressor -) 25 mg PO BID [facility] Last Admin: 12/13/18 09:29 Dose: 25 mg Saliva Substitute (Mouthkote Solution -) 1 applic MM Q2H PRN PRN Reason: COUGH Last Admin: 12/05/18 07:08 Dose: 1 applic Senna (Senna Oral Solution -) 8.8 mg PO HS [facility] Last Admin: 12/13/18 01:13 Dose: Not Given Thiamine HCl (Vitamin B1 Injection -) 200 mg IVPB DAILY [facility] Last Admin: 12/12/18 09:17 Dose: 200 mg - Objective Vital Signs: Vital Signs Temperature 98.5 F 12/13/18 08:01 Pulse Rate 83 12/13/18 09:30 Respiratory Rate 15 12/13/18 08:01 Blood Pressure 156/69 12/13/18 08:01 O2 Sat by Pulse Oximetry (%) 92 L 12/13/18 08:36 Eyes: Yes: WNL, Conjunctiva Clear, EOM Intact HENT: Yes: WNL, Atraumatic, Normocephalic Neck: Yes: WNL, Supple, Trachea Midline Cardiovascular: Yes: Pulse Irregular, S1, S2 Respiratory: Yes: WNL, Regular, CTA Bilaterally Gastrointestinal: Yes: WNL, Normal Bowel Sounds Genitourinary: Yes: WNL Musculoskeletal: Yes: WNL Extremities: Yes: WNL Edema: No Integumentary: Yes: WNL Neurological: Yes: WNL, Alert, Oriented ...Motor Strength: WNL Psychiatric: Yes: WNL Labs: CBC, BMP 12/13/18 05:30 12/13/18 05:30 INR, PTT INR 1.13 (0.83-1.09) H 11/23/18 16:40 Assessment/Plan - Problems (1) Atrial flutter Assessment/Plan: On metoprolol tartrate PO for HR control. On digoxin 0.125 mg daily; keep level 0.5-1.0 (presently reduced from 1.59 to 0.76) On apixaban for anticoagulation. ECHO: unable to assess LVEF; repeat when pt able to turn on left side for better windows (or get MUGA). Code(s): I48.92 - UNSPECIFIED ATRIAL FLUTTER Qualifiers: Atrial flutter type: unspecified Qualified Code(s): I48.92 - Unspecified atrial flutter (2) Morbid obesity Code(s): E66.01 - MORBID (SEVERE) OBESITY DUE TO EXCESS CALORIES (3) HTN (hypertension) Assessment/Plan: Off pressors; BP now ;more consistently elevated. On metoprolol tartrate PO. Improving renal status: consider adding ACEI or ARB (HTN; ?systolic CHF; DM). F/u ECHO for LVEF, wall thickness, chamber sizes, valve status when able to position pt for better windows. Consider MUGA if unable to obtain LVEF from ECHO. Code(s): I10 - ESSENTIAL (PRIMARY) HYPERTENSION (4) Diabetes Assessment/Plan: on Levemir, Novolog. Consider starting ACEI or ARB (HTN, with more regularly elevated BP; ?systolic CHF; DM; improving renal status; now hypokalemic). Aggressive lipid control: start statin. Code(s): E11.9 - TYPE 2 DIABETES MELLITUS WITHOUT COMPLICATIONS (5) [place] cardiac risk >20% in next 10 years Assessment/Plan: TNI negative x 2. BP and glucose control. Keep LDL cholesterol < 70 mg/dL. Smoking cessation. Dietary consult; weight loss. Exercise will be important in the future. Coronary artery evaluation when stable (stress MIBI and/or coronary angiogram). Code(s): Z91.89 - OTH PERSONAL RISK FACTORS, NOT ELSEWHERE CLASSIFIED (6) Alcoholism Assessment/Plan: On Vit B12 and Folate Code(s): F10.20 - ALCOHOL DEPENDENCE, UNCOMPLICATED (7) Ascites Code(s): R18.8 - OTHER ASCITES (8) Interstitial lung disease Assessment/Plan: Moderate pulmonary HTN and RV hypokinesis. TRINH. O2, bronchodilators, steroids per pumonologist. Code(s): J84.9 - INTERSTITIAL PULMONARY DISEASE, UNSPECIFIED (9) CHF (congestive heart failure) Assessment/Plan: Elevated BNP. JVD. F/u BUN/Cr, electrolytes, daily weight, IS and Os,. ECHO repeat for LVEF when pt better able to cooperate (and move on left side); otherwise, consder MUGA for LVEF. Present control of AF/flutter HR with meoprolol and digoxin. Consider start ACEI or ARB (?systolic CHF; DM; HTN; hypokalemia). Code(s): I50.9 - HEART FAILURE, UNSPECIFIED (10) Renal dysfunction Assessment/Plan: improving status; f/u Is and Os, BUN/Cr. Code(s): N28.9 - DISORDER OF KIDNEY AND URETER, UNSPECIFIED (11) Respiratory failure Assessment/Plan: ISLD. TRINH On Bipap, Solumedrol, Atrovent, Ventolin. Code(s): J96.90 - RESPIRATORY FAILURE, UNSP, UNSP W HYPOXIA OR HYPERCAPNIA (12) Sleep apnea Code(s): G47.30 - SLEEP APNEA, UNSPECIFIED (13) Hyperlipidemia Assessment/Plan: LDL cholesterol 108/ HDL 31; trigly 151 mg/dL. LFTs have markedly improved; now WNL. Recommend starting statin (high [place] risk; DM); keep LDL well below 70 mg/ dL. Code(s): E78.5 - HYPERLIPIDEMIA, UNSPECIFIED Assessment/Plan CCU time spent: 35 minutes.
[2018-12-13] MEDS: THIAMINE HCL 200 MG/2 ML VIAL IVPB SCH (10:48)
--- NOTE | 2018-12-13 11:39 | PN ---
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 (short form) - Note 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: pt seen/ examined in icu on bipap more awake aunt at bedside all f/u noted Vital Signs Temp 98.5 F 12/13/18 08:01 Pulse 83 12/13/18 09:30 Resp 15 12/13/18 08:01 BP 156/69 12/13/18 08:01 Pulse Ox 92 L 12/13/18 08:36 Intake & Output 12/12/18 12/12/18 12/13/18 11:59 23:59 11:59 Intake Total 504 1236 1258 Output Total 100 1100 450 Balance 404 136 808 Weight 241 lb 2.971 oz 244 lb 0.827 oz Intake: IV 839 488 0716 D5w - 1,000 ml @ 42 mls/ 504 hr IV ASDIR BRIDGETTE Rx#: [id number] D5w - 1,000 ml @ 75 mls/ 450 hr IV ASDIR BRIDGETTE Rx#: [id number] clinimix 1008 left forearm 336 lipids 20% 250 IVPB 450 Output: Urine 100 1100 450 Bills 100 1100 450 Other: Voiding Method Indwelling Catheter Indwelling Catheter Diaper Bowel Movement Yes Yes: x2 # Bowel Movements 2 2 Body Mass Index (BMI) 36.6 Weight Measurement Method Built in Bedscale Built in Bedscale Active Medications Albuterol Sulfate (Ventolin 0.083% Nebulizer Soln -) 1 amp NEB Q6H PRN PRN Reason: SHORT OF BREATH/WHEEZING Bisacodyl (Dulcolax Suppository -) 10 mg RC DAILY [facility] Last Admin: 12/12/18 15:07 Dose: Not Given Chlorhexidine Gluconate (Peridex -) 15 ml MM BID [facility] Last Admin: 12/12/18 22:48 Dose: Not Given Cyanocobalamin (Vitamin B12 -) 100 mcg PO DAILY [facility] Last Admin: 12/13/18 09:29 Dose: 100 mcg Digoxin (Lanoxin Injection -) 0.125 mg IVPUSH DAILY [facility] Last Admin: 12/13/18 09:30 Dose: 0.125 mg Docusate Sodium (Colace Liquid -) 300 mg NGT HS [facility] Last Admin: 12/12/18 21:18 Dose: 300 mg Folic Acid (Folic Acid -) 1 mg PO DAILY [facility] Last Admin: 12/13/18 09:29 Dose: 1 mg Gabapentin (Neurontin -) 100 mg PO DAILY [facility] Last Admin: 12/13/18 09:29 Dose: 100 mg Heparin Sodium (Porcine) (Heparin -) 5,000 unit SQ TID [facility] Last Admin: 12/13/18 05:33 Dose: 5,000 unit Famotidine/Sodium Chloride (Pepcid 20 Mg Premixed Ivpb -) 20 mg in 50 mls @ 100 mls/hr IVPB DAILY [facility] Last Admin: 12/13/18 09:31 Dose: 100 mls/hr Amino Acids (Clinimix -) 1,000 mls @ 84 mls/hr IV Q12H [facility] Last Admin: 12/13/18 01:13 Dose: 84 mls/hr Fat Emulsion Intravenous (Intralipid -) 250 mls @ 20.833 mls/hr IV DAILY@2200 [facility] Last Admin: 12/12/18 21:16 Dose: 20.833 mls/hr Levofloxacin (Levaquin 750 Mg Premixed Ivpb -) 750 mg in 150 mls @ 150 mls/hr IVPB DAILY [facility]; Protocol Stop: 12/20/18 09:59 Last Admin: 12/13/18 09:31 Dose: 150 mls/hr Insulin Aspart (Novolog Vial Sliding Scale -) 1 vial SQ ACHS [facility]; Protocol Last Admin: 12/13/18 06:05 Dose: 2 units Insulin Detemir (Levemir Vial) 8 units SQ HS [facility] Last Admin: 12/12/18 22:49 Dose: 8 units Ipratropium [place] (Atrovent 0.02% Nebulizer -) 1 amp NEB RQID [facility] Last Admin: 12/13/18 07:25 Dose: 1 amp Methylprednisolone Sodium Succinate (Solu-Medrol -) 60 mg IVPUSH DAILY [facility] Last Admin: 12/13/18 09:29 Dose: 60 mg Metoprolol Tartrate (Lopressor Injection -) 5 mg IVPUSH Q4H PRN PRN Reason: HR >120 Last Admin: 12/10/18 16:30 Dose: 5 mg Metoprolol Tartrate (Lopressor -) 25 mg PO BID [facility] Last Admin: 12/13/18 09:29 Dose: 25 mg Saliva Substitute (Mouthkote Solution -) 1 applic MM Q2H PRN PRN Reason: COUGH Last Admin: 12/05/18 07:08 Dose: 1 applic Senna (Senna Oral Solution -) 8.8 mg PO HS [facility] Last Admin: 12/13/18 01:13 Dose: Not Given Thiamine HCl (Vitamin B1 Injection -) 200 mg IVPB DAILY [facility] Last Admin: 12/12/18 09:17 Dose: 200 mg CBC, BMP 12/13/18 05:30 12/13/18 05:30 Abnormal Lab Results 12/13/18 12/13/18 12/13/18 05:30 05:30 05:30 MCV 99.1 H MCHC 31.5 L Plt Count 68 L MPV 11.6 H Sodium 147 H Chloride 110 H Anion Gap 5 L BUN 43 H Random Glucose 140 H Calcium 8.1 L Phosphorus 2.2 L Ammonia 36.25 H Total Protein 5.1 L Albumin 2.3 L cxr- noted Physical Exam more awake - on bipap lungs- Bilateral breath sounds anteriorly cvs- s1, s2 rrr abd - soft / obese ext- + edema a/p Respiratory failure- Hypernatremia- better Diabetes-- hypo-- decrease insulin dose ETOH abuse Renal failure + ve NC 3/ P anca, -ve cnca ya ? biopsy ? discussed with icu/ renal rheumatology on case nutrition overall condition remains very gaurded but improved continue present care will follow discussed with aunt also again today Problem List - Problems (1) Acute respiratory failure with hypoxia and hypercapnia Code(s): J96.01 - ACUTE RESPIRATORY FAILURE WITH HYPOXIA; J96.02 - ACUTE RESPIRATORY FAILURE WITH HYPERCAPNIA (2) Atrial flutter Code(s): I48.92 - UNSPECIFIED ATRIAL FLUTTER Qualifiers: Atrial flutter type: unspecified Qualified Code(s): I48.92 - Unspecified atrial flutter (3) Bilateral lower extremity edema Code(s): R60.0 - LOCALIZED EDEMA (4) Diabetes Code(s): E11.9 - TYPE 2 DIABETES MELLITUS WITHOUT COMPLICATIONS (5) Elevated LFTs Code(s): R94.5 - ABNORMAL RESULTS OF LIVER FUNCTION STUDIES (6) Hyperlipidemia Code(s): E78.5 - HYPERLIPIDEMIA, UNSPECIFIED (7) Morbid obesity Code(s): E66.01 - MORBID (SEVERE) OBESITY DUE TO EXCESS CALORIES (8) Acute renal failure Code(s): N17.9 - ACUTE KIDNEY FAILURE, UNSPECIFIED (9) Pulmonary hypertension Code(s): I27.20 - PULMONARY HYPERTENSION, UNSPECIFIED
--- NOTE | 2018-12-13 12:30 | PN ---
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 (short form) - Note 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: Seen an examined in the ICU runs of RVR: afib vs SVT placed on NIPPV for dyspnea low grade fever Current Medications Albuterol Sulfate (Ventolin 0.083% Nebulizer Soln -) 1 amp NEB Q6H PRN PRN Reason: SHORT OF BREATH/WHEEZING Bisacodyl (Dulcolax Suppository -) 10 mg RC DAILY [facility] Last Admin: 12/12/18 15:07 Dose: Not Given Chlorhexidine Gluconate (Peridex -) 15 ml MM BID [facility] Last Admin: 12/12/18 22:48 Dose: Not Given Cyanocobalamin (Vitamin B12 -) 100 mcg PO DAILY [facility] Last Admin: 12/13/18 09:29 Dose: 100 mcg Digoxin (Lanoxin Injection -) 0.125 mg IVPUSH DAILY [facility] Last Admin: 12/13/18 09:30 Dose: 0.125 mg Docusate Sodium (Colace Liquid -) 300 mg NGT HS [facility] Last Admin: 12/12/18 21:18 Dose: 300 mg Folic Acid (Folic Acid -) 1 mg PO DAILY [facility] Last Admin: 12/13/18 09:29 Dose: 1 mg Gabapentin (Neurontin -) 100 mg PO DAILY [facility] Last Admin: 12/13/18 09:29 Dose: 100 mg Heparin Sodium (Porcine) (Heparin -) 5,000 unit SQ TID [facility] Last Admin: 12/13/18 05:33 Dose: 5,000 unit Famotidine/Sodium Chloride (Pepcid 20 Mg Premixed Ivpb -) 20 mg in 50 mls @ 100 mls/hr IVPB DAILY [facility] Last Admin: 12/13/18 09:31 Dose: 100 mls/hr Amino Acids (Clinimix -) 1,000 mls @ 84 mls/hr IV Q12H [facility] Last Admin: 12/13/18 01:13 Dose: 84 mls/hr Fat Emulsion Intravenous (Intralipid -) 250 mls @ 20.833 mls/hr IV DAILY@2200 [facility] Last Admin: 12/12/18 21:16 Dose: 20.833 mls/hr Levofloxacin (Levaquin 750 Mg Premixed Ivpb -) 750 mg in 150 mls @ 150 mls/hr IVPB DAILY [facility]; Protocol Stop: 12/20/18 09:59 Last Admin: 12/13/18 09:31 Dose: 150 mls/hr Insulin Aspart (Novolog Vial Sliding Scale -) 1 vial SQ [facility] ON LICENSE OF [facility]; Protocol Last Admin: 12/13/18 06:05 Dose: 2 units Insulin Detemir (Levemir Vial) 8 units SQ HS [facility] Last Admin: 12/12/18 22:49 Dose: 8 units Ipratropium [place] (Atrovent 0.02% Nebulizer -) 1 amp NEB RQID [facility] Last Admin: 12/13/18 07:25 Dose: 1 amp Methylprednisolone Sodium Succinate (Solu-Medrol -) 60 mg IVPUSH DAILY [facility] Last Admin: 12/13/18 09:29 Dose: 60 mg Metoprolol Tartrate (Lopressor Injection -) 5 mg IVPUSH Q4H PRN PRN Reason: HR >120 Last Admin: 12/10/18 16:30 Dose: 5 mg Metoprolol Tartrate (Lopressor -) 25 mg PO BID [facility] Last Admin: 12/13/18 09:29 Dose: 25 mg Saliva Substitute (Mouthkote Solution -) 1 applic MM Q2H PRN PRN Reason: COUGH Last Admin: 12/05/18 07:08 Dose: 1 applic Senna (Senna Oral Solution -) 8.8 mg PO HS [facility] Last Admin: 12/13/18 01:13 Dose: Not Given Thiamine HCl (Vitamin B1 Injection -) 200 mg IVPB DAILY [facility] Last Admin: 12/12/18 09:17 Dose: 200 mg Vital Signs Period Temp Pulse Resp BP Sys/Gregorio Pulse Ox Last 24 Hr 97.6 F-99.3 F 57-83 15-26 140-164/60-110 92-97 Intake & Output 12/10/18 12/11/18 12/12/18 12/13/18 23:59 23:59 23:59 23:59 Intake Total 724 560 1132 1258 Output Total 1650 1600 1200 450 Balance -688 -706 540 808 Weight 112.536 kg 111.992 kg 109.4 kg 110.7 kg General: HEENT: CV: RRR at this time no m/r/g Pulm: diminished in bases Abd: obese, SNTND Ext: Neuro: CBC, BMP 12/13/18 05:30 12/13/18 05:30 ASSESSMENT AND PLAN: Acute on Chronic Hypoxic and Hypercapneic Respiratory Failure improving Acute COPD Exacerbation Morbid Obesity Obstructive Sleep Apnea/Obesity Hypoventilation Syndrome Suspect Right Heart Failure Volume Overload Mediastinal Lymphadenopathy Atrial Fibrillation with RVR Cellulitis treated Acute Kidney Injury Alcohol Abuse - check ammonia level - rate control - continue anticoagulation - continue medrol at current dose - inhaled bronchodilators but minimize beta agonists - lasix as needed - completed antibiotics - monitor urine output, creatinine - NIPPV overnight and as needed to assist in work of breathing - LTAC evaluation - DVT/GI prophylaxis - continue ICU monitoring Boerem ACNP Critical care time spent in reviewing chart, evaluating patient and formulating plan 35 min
[2018-12-13] MEDS ORDERED: FUROSEMIDE 40 MG/4 ML INJECTABLE VIAL IVPUSH ONE ×2 (12:36→22:39)
[2018-12-13] MEDS: BISACODYL 10 MG SUPP.RECT RC SCH (13:48)
[2018-12-13] MEDS: CHLORHEXIDINE GLUCONATE 0.12% 15ML CUP MM SCH ×2 (13:48→21:21)
[2018-12-13] MEDS: NAPH,MB-DB/K PH,MBDB POWDER PACKET PO SCH ×2 (14:55→21:27)
[2018-12-13] MEDS ORDERED: PT OWN MED DRAWER 7, Y5N ONE ×2 (15:01→21:26)
[2018-12-13] MEDS: DOCUSATE NA 100 MG/10 ML UNIT-DOSE CUPS NGT SCH (21:19)
[2018-12-13] MEDS: FAT EMULSIONS 250 ML IV SCH (21:27)
[2018-12-13] MEDS: INSULIN (LEVEMIR) 100 UNITS/ML UNITS SQ SCH (21:59)
[2018-12-14] MEDS ORDERED: PT OWN MED DRAWER 7, Y5N ONE ×2 (03:09→10:13)
[2018-12-14] MEDS: AMINO ACIDS 4.25%/D5W 1,000 ML IV SCH ×2 (05:58→16:55)
[2018-12-14] MEDS: HEPARIN NA (PORCINE) 5,000 UNITS/ML 1ML VIAL SQ SCH ×3 (05:59→21:58)
[2018-12-14] MEDS: INSULIN SLIDING SCALE (NOVOLOG) 1 VIAL SQ SCH ×4 (06:29→22:32)
[2018-12-14 06:53] LABS: HEMATOCRIT 40.4 % (32.4-45.2); MEAN CELL VOLUME 96.8 fl (80-96); MEAN PLT VOLUME 11.2 fl (7.5-11.1); PLATELET COUNT 74 K/MM3 (134-434); RBC 4.18 M/mm3 (3.60-5.2); RDW 14.6 % (11.6-15.6); WHITE BLOOD COUNT 7.5 K/mm3 (4.0-10.0)
[2018-12-14 06:56] LABS: ANION GAP 7 MMOL/L (8-16); BLOOD UREA NITROGEN 44 mg/dL (7-18); CALCIUM 8.2 mg/dL (8.5-10.1); CHLORIDE 108 mmol/L (98-107); CO2 32 mmol/L (21-32); GLUCOSE,RANDOM 161 mg/dL (74-106); MAGNESIUM 1.5 mg/dL (1.8-2.4); PHOSPHOROUS 2.6 mg/dL (2.5-4.9); POTASSIUM 3.1 mmol/L (3.5-5.1); SODIUM 147 mmol/L (136-145)
[2018-12-14] MEDS: IPRATROPIUM BR 0.02% 0.5 MG/2.5 ML VIAL.NEB. NEB SCH ×4 (07:03→20:11)
[2018-12-14] MEDS ORDERED: POTASSIUM PHOSPHATE 15 MM in DEXTROSE 5%-WATER - 250 ML IVPB ONE (07:37)
[2018-12-14] MEDS ORDERED: FUROSEMIDE 40 MG/4 ML INJECTABLE VIAL IVPUSH ONE (07:44)
--- NOTE | 2018-12-14 07:44 | PN ---
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 (short form) - Note 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: Seen and examined in the ICU Cont to require NIPPV for respiratory support received lasix x2 had several runs of SVT vs afib w/ RVR BP stable cont to have low grade fevers Current Medications Albuterol Sulfate (Ventolin 0.083% Nebulizer Soln -) 1 amp NEB Q6H PRN PRN Reason: SHORT OF BREATH/WHEEZING Bisacodyl (Dulcolax Suppository -) 10 mg RC DAILY [facility] Last Admin: 12/13/18 13:48 Dose: Not Given Chlorhexidine Gluconate (Peridex -) 15 ml MM BID [facility] Last Admin: 12/13/18 21:21 Dose: Not Given Cyanocobalamin (Vitamin B12 -) 100 mcg PO DAILY [facility] Last Admin: 12/13/18 09:29 Dose: 100 mcg Digoxin (Lanoxin Injection -) 0.125 mg IVPUSH DAILY [facility] Last Admin: 12/13/18 09:30 Dose: 0.125 mg Docusate Sodium (Colace Liquid -) 300 mg NGT HS [facility] Last Admin: 12/13/18 21:19 Dose: 300 mg Folic Acid (Folic Acid -) 1 mg PO DAILY [facility] Last Admin: 12/13/18 09:29 Dose: 1 mg Gabapentin (Neurontin -) 100 mg PO DAILY [facility] Last Admin: 12/13/18 09:29 Dose: 100 mg Heparin Sodium (Porcine) (Heparin -) 5,000 unit SQ TID [facility] Last Admin: 12/14/18 05:59 Dose: 5,000 unit Famotidine/Sodium Chloride (Pepcid 20 Mg Premixed Ivpb -) 20 mg in 50 mls @ 100 mls/hr IVPB DAILY [facility] Last Admin: 12/13/18 09:31 Dose: 100 mls/hr Amino Acids (Clinimix -) 1,000 mls @ 84 mls/hr IV Q12H [facility] Last Admin: 12/14/18 05:58 Dose: 84 mls/hr Fat Emulsion Intravenous (Intralipid -) 250 mls @ 20.833 mls/hr IV DAILY@2200 [facility] Last Admin: 12/13/18 21:27 Dose: 20.833 mls/hr Levofloxacin (Levaquin 750 Mg Premixed Ivpb -) 750 mg in 150 mls @ 150 mls/hr IVPB DAILY [facility]; Protocol Stop: 12/20/18 09:59 Last Admin: 12/13/18 09:31 Dose: 150 mls/hr Potassium Phosphate 15 mm/ (Dextrose) 255 mls @ 62.5 mls/hr IVPB ONCE ONE Stop: 12/14/18 11:41 Insulin Aspart (Novolog Vial Sliding Scale -) 1 vial SQ ACHS [facility]; Protocol Last Admin: 12/14/18 06:29 Dose: 4 units Insulin Detemir (Levemir Vial) 8 units SQ [facility] Last Admin: 12/13/18 21:59 Dose: 8 units Ipratropium [place] (Atrovent 0.02% Nebulizer -) 1 amp NEB RQID [facility] Last Admin: 12/14/18 07:03 Dose: 1 amp Methylprednisolone Sodium Succinate (Solu-Medrol -) 60 mg IVPUSH DAILY [facility] Last Admin: 12/13/18 09:29 Dose: 60 mg Metoprolol Tartrate (Lopressor Injection -) 5 mg IVPUSH Q4H PRN PRN Reason: HR >120 Last Admin: 12/10/18 16:30 Dose: 5 mg Metoprolol Tartrate (Lopressor -) 25 mg PO BID [facility] Last Admin: 12/13/18 21:20 Dose: 25 mg Saliva Substitute (Mouthkote Solution -) 1 applic MM Q2H PRN PRN Reason: COUGH Last Admin: 12/05/18 07:08 Dose: 1 applic Senna (Senna Oral Solution -) 8.8 mg PO HS [facility] Last Admin: 12/13/18 21:22 Dose: Not Given Thiamine HCl (Vitamin B1 Injection -) 200 mg IVPB DAILY [facility] Last Admin: 12/13/18 10:48 Dose: 200 mg Vital Signs Period Temp Pulse Resp BP Sys/Gregorio Pulse Ox Last 24 Hr 98.5 F-99.8 F 59-89 15-25 126-172/60-105 92-95 Intake & Output 12/11/18 12/12/18 12/13/18 12/14/18 23:59 23:59 23:59 23:59 Intake Total 894 1740 1578 710 Output Total 1600 1200 450 Balance -333 687 4420 710 Weight 111.992 kg 109.4 kg 110.7 kg 112.128 kg General: awake and confused HEENT: PERRL CV: RRR at this time no m/r/g Pulm: diminished in bases Abd: obese, SNTND Ext: LE edema Neuro: awake, following commands, confused at times CBC, BMP 12/14/18 05:30 ASSESSMENT AND PLAN: Acute on Chronic Hypoxic and Hypercapneic Respiratory Failure improving Acute COPD Exacerbation Morbid Obesity Obstructive Sleep Apnea/Obesity Hypoventilation Syndrome Suspect Right Heart Failure Volume Overload Mediastinal Lymphadenopathy Atrial Fibrillation with RVR Cellulitis treated Acute Kidney Injury Alcohol Abuse - rate control q BB - continue anticoagulation - continue medrol at current dose - inhaled bronchodilators but minimize beta agonists - lasix as needed - completed antibiotics - monitor urine output, creatinine - NIPPV overnight and as needed to assist in work of breathing - LTAC evaluation - DVT/GI prophylaxis - continue ICU monitoring Boerem ACNP Critical care time spent in reviewing chart, evaluating patient and formulating plan 35 min
--- NOTE | 2018-12-14 09:39 | PN ---
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, Physician History of Present Illness: 53 YO white woman with h/o COPD (placed on steroid course 2 days ago without relief) acute/chronic alcoholism (several glasses of rum daily), long-term cigarette smoker, sleep apnea, morbid obesity, DM, HTN, hyperlipidemia, chronic erythema of LEs with hx cellulitis, metabolic syndrome, who is now admitted with SOB and wheezing similar to her prior COPD exacerbation. She additionally notes awakening in the middle of the night last night with visual hallucinations. She additionally notes abdominal swelling recently, believes she has an abdominal infection but does not know what kind. Denies h/o heart arrhythmia. She has noticed her lips are more blue than normal. - Current Medication List Current Medications: Active Medications Albuterol Sulfate (Ventolin 0.083% Nebulizer Soln -) 1 amp NEB Q6H PRN PRN Reason: SHORT OF BREATH/WHEEZING Bisacodyl (Dulcolax Suppository -) 10 mg RC DAILY [facility] Last Admin: 12/13/18 13:48 Dose: Not Given Chlorhexidine Gluconate (Peridex -) 15 ml MM BID [facility] Last Admin: 12/13/18 21:21 Dose: Not Given Cyanocobalamin (Vitamin B12 -) 100 mcg PO DAILY [facility] Last Admin: 12/13/18 09:29 Dose: 100 mcg Digoxin (Lanoxin Injection -) 0.125 mg IVPUSH DAILY [facility] Last Admin: 12/13/18 09:30 Dose: 0.125 mg Docusate Sodium (Colace Liquid -) 300 mg NGT HS [facility] Last Admin: 12/13/18 21:19 Dose: 300 mg Folic Acid (Folic Acid -) 1 mg PO DAILY [facility] Last Admin: 12/13/18 09:29 Dose: 1 mg Gabapentin (Neurontin -) 100 mg PO DAILY [facility] Last Admin: 12/13/18 09:29 Dose: 100 mg Heparin Sodium (Porcine) (Heparin -) 5,000 unit SQ TID [facility] Last Admin: 12/14/18 05:59 Dose: 5,000 unit Famotidine/Sodium Chloride (Pepcid 20 Mg Premixed Ivpb -) 20 mg in 50 mls @ 100 mls/hr IVPB DAILY [facility] Last Admin: 12/13/18 09:31 Dose: 100 mls/hr Amino Acids (Clinimix -) 1,000 mls @ 84 mls/hr IV Q12H [facility] Last Admin: 12/14/18 05:58 Dose: 84 mls/hr Fat Emulsion Intravenous (Intralipid -) 250 mls @ 20.833 mls/hr IV DAILY@2200 [facility] Last Admin: 12/13/18 21:27 Dose: 20.833 mls/hr Levofloxacin (Levaquin 750 Mg Premixed Ivpb -) 750 mg in 150 mls @ 150 mls/hr IVPB DAILY [facility]; Protocol Stop: 12/20/18 09:59 Last Admin: 12/13/18 09:31 Dose: 150 mls/hr Potassium Phosphate 15 mm/ (Dextrose) 255 mls @ 62.5 mls/hr IVPB ONCE ONE Stop: 12/14/18 11:41 Insulin Aspart (Novolog Vial Sliding Scale -) 1 vial SQ ACHS [facility]; Protocol Last Admin: 12/14/18 06:29 Dose: 4 units Insulin Detemir (Levemir Vial) 8 units SQ HS [facility] Last Admin: 12/13/18 21:59 Dose: 8 units Ipratropium [place] (Atrovent 0.02% Nebulizer -) 1 amp NEB RQID [facility] Last Admin: 12/14/18 07:03 Dose: 1 amp Methylprednisolone Sodium Succinate (Solu-Medrol -) 60 mg IVPUSH DAILY [facility] Last Admin: 12/13/18 09:29 Dose: 60 mg Metoprolol Tartrate (Lopressor Injection -) 5 mg IVPUSH Q4H PRN PRN Reason: HR >120 Last Admin: 12/10/18 16:30 Dose: 5 mg Metoprolol Tartrate (Lopressor -) 25 mg PO BID [facility] Last Admin: 12/13/18 21:20 Dose: 25 mg Saliva Substitute (Mouthkote Solution -) 1 applic MM Q2H PRN PRN Reason: COUGH Last Admin: 12/05/18 07:08 Dose: 1 applic Senna (Senna Oral Solution -) 8.8 mg PO HS [facility] Last Admin: 12/13/18 21:22 Dose: Not Given Thiamine HCl (Vitamin B1 Injection -) 200 mg IVPB DAILY [facility] Last Admin: 12/13/18 10:48 Dose: 200 mg - Objective Vital Signs: Vital Signs Temperature 99.8 F H 12/14/18 00:00 Pulse Rate 79 12/14/18 06:00 Respiratory Rate 22 H 12/14/18 06:00 Blood Pressure 126/60 12/14/18 06:00 O2 Sat by Pulse Oximetry (%) 94 L 12/14/18 04:50 Eyes: Yes: WNL, Conjunctiva Clear, EOM Intact HENT: Yes: WNL, Atraumatic, Normocephalic Neck: Yes: WNL, Supple, Trachea Midline Cardiovascular: Yes: WNL, Regular Rate and Rhythm Respiratory: Yes: WNL, Regular, CTA Bilaterally Gastrointestinal: Yes: WNL, Normal Bowel Sounds Genitourinary: Yes: WNL Musculoskeletal: Yes: WNL Extremities: Yes: WNL Edema: No Integumentary: Yes: WNL Neurological: Yes: WNL, Alert, Oriented ...Motor Strength: WNL Psychiatric: Yes: WNL Labs: CBC, BMP 12/14/18 05:30 12/14/18 05:30 INR, PTT INR 1.13 (0.83-1.09) H 11/23/18 16:40 Assessment/Plan - Problems (1) Atrial flutter Assessment/Plan: On metoprolol tartrate PO for HR control. On digoxin 0.125 mg daily; keep level 0.5-1.0 (presently reduced from 1.59 to 0.76) On apixaban for anticoagulation. ECHO: unable to assess LVEF; repeat when pt able to turn on left side for better windows (or get MUGA). Code(s): I48.92 - UNSPECIFIED ATRIAL FLUTTER Qualifiers: Atrial flutter type: unspecified Qualified Code(s): I48.92 - Unspecified atrial flutter (2) Morbid obesity Code(s): E66.01 - MORBID (SEVERE) OBESITY DUE TO EXCESS CALORIES (3) HTN (hypertension) Assessment/Plan: Off pressors; BP now ;more consistently elevated. On metoprolol tartrate PO. Improving renal status: consider adding ACEI or ARB (HTN; ?systolic CHF; DM). F/u ECHO for LVEF, wall thickness, chamber sizes, valve status when able to position pt for better windows. Consider MUGA if unable to obtain LVEF from ECHO. Code(s): I10 - ESSENTIAL (PRIMARY) HYPERTENSION (4) Diabetes Assessment/Plan: on Levemir, Novolog. Consider starting ACEI or ARB (HTN, with more regularly elevated BP; ?systolic CHF; DM; improving renal status; now hypokalemic). Aggressive lipid control: start statin. Code(s): E11.9 - TYPE 2 DIABETES MELLITUS WITHOUT COMPLICATIONS (5) [place] cardiac risk >20% in next 10 years Assessment/Plan: TNI negative x 2. BP and glucose control. Keep LDL cholesterol < 70 mg/dL. Smoking cessation. Dietary consult; weight loss. Exercise will be important in the future. Coronary artery evaluation when stable (stress MIBI and/or coronary angiogram). Code(s): Z91.89 - OTH PERSONAL RISK FACTORS, NOT ELSEWHERE CLASSIFIED (6) Alcoholism Assessment/Plan: On Vit B12 and Folate Code(s): F10.20 - ALCOHOL DEPENDENCE, UNCOMPLICATED (7) Ascites Code(s): R18.8 - OTHER ASCITES (8) Interstitial lung disease Assessment/Plan: Moderate pulmonary HTN and RV hypokinesis. TRINH. O2, bronchodilators, steroids per pumonologist. Code(s): J84.9 - INTERSTITIAL PULMONARY DISEASE, UNSPECIFIED (9) CHF (congestive heart failure) Assessment/Plan: Elevated BNP. JVD. F/u BUN/Cr, electrolytes, daily weight, IS and Os,. ECHO repeat for LVEF when pt better able to cooperate (and move on left side); otherwise, consder MUGA for LVEF. Present control of AF/flutter HR with meoprolol and digoxin. Consider start ACEI or ARB (?systolic CHF; DM; HTN; hypokalemia). Code(s): I50.9 - HEART FAILURE, UNSPECIFIED (10) Renal dysfunction Assessment/Plan: improving status; f/u Is and Os, BUN/Cr. Code(s): N28.9 - DISORDER OF KIDNEY AND URETER, UNSPECIFIED (11) Respiratory failure Assessment/Plan: ISLD. TRINH On Bipap, Solumedrol, Atrovent, Ventolin. Code(s): J96.90 - RESPIRATORY FAILURE, UNSP, UNSP W HYPOXIA OR HYPERCAPNIA (12) Sleep apnea Code(s): G47.30 - SLEEP APNEA, UNSPECIFIED (13) Hyperlipidemia Assessment/Plan: LDL cholesterol 108/ HDL 31; trigly 151 mg/dL. LFTs have markedly improved; now WNL. Recommend starting statin (high [place] risk; DM); keep LDL well below 70 mg/ dL. Code(s): E78.5 - HYPERLIPIDEMIA, UNSPECIFIED CCU time spent: 35 minutes.
[2018-12-14] MEDS: methylPREDNISolone NA SUCC 40 MG/1 ML VIAL IVPUSH SCH (10:13)
[2018-12-14] MEDS: FAMOTIDINE 20 MG/50 ML IVPB 20 MG/50 ML MG IVPB SCH (10:14)
[2018-12-14] MEDS: CHLORHEXIDINE GLUCONATE 0.12% 15ML CUP MM SCH ×2 (10:14→21:57)
[2018-12-14] MEDS: FOLIC ACID 1 MG TABLET (FP) PO SCH ×2 (10:15→10:30)
[2018-12-14] MEDS: METOPROLOL TARTRATE 25 MG TABLET (FP) PO SCH ×3 (10:15→21:56)
[2018-12-14] MEDS: GABAPENTIN 100 MG CAPSULE (FP) PO SCH ×2 (10:15→10:30)
[2018-12-14] MEDS: CYANOCOBALAMIN (VITAMIN B-12) 100 MCG TABLET PO SCH ×2 (10:15→10:30)
[2018-12-14] MEDS: DIGOXIN 0.5 MG/2 ML AMPUL IVPUSH SCH (10:16)
[2018-12-14] MEDS: THIAMINE HCL 200 MG/2 ML VIAL IVPB SCH (10:17)
[2018-12-14] MEDS: BISACODYL 10 MG SUPP.RECT RC SCH (12:21)
--- NOTE | 2018-12-14 12:24 | EKG ---
Test Reason : Blood Pressure : / mmHG Vent. Rate : 079 BPM Atrial Rate : 220 BPM P-R Int : 000 ms QRS Dur : 088 ms QT Int : 368 ms P-R-T Axes : 000 110 143 degrees QTc Int : 421 ms ATRIAL FIBRILLATION LEFT POSTERIOR FASCICULAR BLOCK ABNORMAL ECG WHEN COMPARED WITH ECG OF 03-DEC-2018 11:40, ATRIAL FIBRILLATION HAS REPLACED ATRIAL FLUTTER NON-SPECIFIC CHANGE IN ST SEGMENT IN ANTERIOR LEADS T WAVE INVERSION NO LONGER EVIDENT IN INFERIOR LEADS INVERTED T WAVES HAVE REPLACED NONSPECIFIC T WAVE ABNORMALITY IN LATERAL LEADS QT HAS LENGTHENED Confirmed by STEPHANIE TORRES, RACHELLE ([id number]) on 12/14/2018 12:24:19 PM Referred By: Candy SALEH Confirmed By:RACHELLE BROWN MD
[2018-12-14] MEDS ORDERED: INSULIN (NOVOLOG) ASPART 100 UNITS/ML 10ML VIAL ONE (12:26)
--- NOTE | 2018-12-14 13:30 | PN ---
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 (short form) - Note 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: pt seen/ examined in icu remains on bipap low grade temp. Vital Signs Temp 99.8 F H 12/14/18 00:00 Pulse 90 12/14/18 10:16 Resp 22 H 12/14/18 06:00 BP 126/60 12/14/18 06:00 Pulse Ox 98 12/14/18 09:38 Intake & Output 12/13/18 12/14/18 12/14/18 23:59 11:59 23:59 Intake Total 320 710 Balance 320 710 Weight 247 lb 3.2 oz Intake: IV 320 710 clinimix 320 560 lipids 20% 150 Other: Voiding Method Diaper # Unmeasured Voids Bills 5 2 Bowel Movement Yes # Bowel Movements 1 Weight Measurement Method Built in [facility] Active Medications Albuterol Sulfate (Ventolin 0.083% Nebulizer Soln -) 1 amp NEB Q6H PRN PRN Reason: SHORT OF BREATH/WHEEZING Bisacodyl (Dulcolax Suppository -) 10 mg RC DAILY [facility] Last Admin: 12/14/18 12:21 Dose: Not Given Chlorhexidine Gluconate (Peridex -) 15 ml MM BID [facility] Last Admin: 12/14/18 10:14 Dose: Not Given Cyanocobalamin (Vitamin B12 -) 100 mcg PO DAILY [facility] Last Admin: 12/14/18 10:30 Dose: Not Given Digoxin (Lanoxin Injection -) 0.125 mg IVPUSH DAILY [facility] Last Admin: 12/14/18 10:16 Dose: 0.125 mg Docusate Sodium (Colace Liquid -) 300 mg NGT HS [facility] Last Admin: 12/13/18 21:19 Dose: 300 mg Folic Acid (Folic Acid -) 1 mg PO DAILY [facility] Last Admin: 12/14/18 10:30 Dose: Not Given Gabapentin (Neurontin -) 100 mg PO DAILY [facility] Last Admin: 12/14/18 10:30 Dose: Not Given Heparin Sodium (Porcine) (Heparin -) 5,000 unit SQ TID [facility] Last Admin: 12/14/18 05:59 Dose: 5,000 unit Famotidine/Sodium Chloride (Pepcid 20 Mg Premixed Ivpb -) 20 mg in 50 mls @ 100 mls/hr IVPB DAILY [facility] Last Admin: 12/14/18 10:14 Dose: 100 mls/hr Amino Acids (Clinimix -) 1,000 mls @ 84 mls/hr IV Q12H [facility] Last Admin: 12/14/18 05:58 Dose: 84 mls/hr Fat Emulsion Intravenous (Intralipid -) 250 mls @ 20.833 mls/hr IV DAILY@2200 [facility] Last Admin: 12/13/18 21:27 Dose: 20.833 mls/hr Levofloxacin (Levaquin 750 Mg Premixed Ivpb -) 750 mg in 150 mls @ 150 mls/hr IVPB DAILY [facility]; Protocol Stop: 12/20/18 09:59 Last Admin: 12/14/18 10:15 Dose: 150 mls/hr Insulin Aspart (Novolog Vial Sliding Scale -) 1 vial SQ ACHS [facility]; Protocol Last Admin: 12/14/18 12:00 Dose: 4 units Insulin Detemir (Levemir Vial) 8 units SQ HS [facility] Last Admin: 12/13/18 21:59 Dose: 8 units Ipratropium [place] (Atrovent 0.02% Nebulizer -) 1 amp NEB RQID [facility] Last Admin: 12/14/18 11:48 Dose: 1 amp Methylprednisolone Sodium Succinate (Solu-Medrol -) 60 mg IVPUSH DAILY [facility] Last Admin: 12/14/18 10:13 Dose: 60 mg Metoprolol Tartrate (Lopressor Injection -) 5 mg IVPUSH Q4H PRN PRN Reason: HR >120 Last Admin: 12/10/18 16:30 Dose: 5 mg Metoprolol Tartrate (Lopressor -) 25 mg PO BID [facility] Last Admin: 12/14/18 10:30 Dose: Not Given Saliva Substitute ([place]outhkote Solution -) 1 applic MM Q2H PRN PRN Reason: COUGH Last Admin: 12/05/18 07:08 Dose: 1 applic Senna (Senna Oral Solution -) 8.8 mg PO HS [facility] Last Admin: 12/13/18 21:22 Dose: Not Given Thiamine HCl (Vitamin B1 Injection -) 200 mg IVPB DAILY [facility] Last Admin: 12/14/18 10:17 Dose: 200 mg CBC, BMP 12/14/18 05:30 12/14/18 05:30 Abnormal Lab Results 12/14/18 12/14/18 05:30 05:30 MCV 96.8 H Plt Count 74 L MPV 11.2 H Sodium 147 H Potassium 3.1 L Chloride 108 H Anion Gap 7 L BUN 44 H Random Glucose 161 H Calcium 8.2 L Magnesium 1.5 L Microbiology 12/11/18 15:30 Urine Culture - Final Urine - Urine - Catheterized NO GROWTH OBTAINED Physical Exam drowsy -- arousable on bipap lungs- Bilateral breath sounds anteriorly cvs- s1, s2 rrr abd - soft / obese ext- + edema a/p Respiratory failure- Hypernatremia- better Diabetes-- hypo-- monitor ETOH abuse Renal failure-- resolving + ve RI 3/ P anca, -ve cnca ya ? biopsy ? nutrition-- clinimix labs reviewed-- fix electrolytes overall condition remains very gaurded continue present care will follow Problem List - Problems (1) Acute respiratory failure with hypoxia and hypercapnia Code(s): J96.01 - ACUTE RESPIRATORY FAILURE WITH HYPOXIA; J96.02 - ACUTE RESPIRATORY FAILURE WITH HYPERCAPNIA (2) Atrial flutter Code(s): I48.92 - UNSPECIFIED ATRIAL FLUTTER Qualifiers: Atrial flutter type: unspecified Qualified Code(s): I48.92 - Unspecified atrial flutter (3) Bilateral lower extremity edema Code(s): R60.0 - LOCALIZED EDEMA (4) Diabetes Code(s): E11.9 - TYPE 2 DIABETES MELLITUS WITHOUT COMPLICATIONS (5) Elevated LFTs Code(s): R94.5 - ABNORMAL RESULTS OF LIVER FUNCTION STUDIES (6) Hyperlipidemia Code(s): E78.5 - HYPERLIPIDEMIA, UNSPECIFIED (7) Morbid obesity Code(s): E66.01 - MORBID (SEVERE) OBESITY DUE TO EXCESS CALORIES (8) Acute renal failure Code(s): N17.9 - ACUTE KIDNEY FAILURE, UNSPECIFIED (9) Pulmonary hypertension Code(s): I27.20 - PULMONARY HYPERTENSION, UNSPECIFIED
--- NOTE | 2018-12-14 14:12 | PN ---
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 (short form) - Note 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: RENAL On BiPAP not responding to questions Last Vital Signs Temp Pulse Resp BP Pulse Ox 99.8 F H 90 22 H 126/60 98 12/14/18 00:00 12/14/18 10:16 12/14/18 06:00 12/14/18 06:00 12/14/18 09:38 lungs decreased breath sounds chest has some dilated veins on right chest abd soft, obese, not tender ext no edema neuro a+o skin some arterial insuff changes on lower extremities skin no lesions noted Current Medications Generic Name Dose Route Start Last Admin Trade Name Freq PRN Reason Stop Dose Admin Albuterol Sulfate 1 amp 12/10/18 10:43 Ventolin 0.083% Nebulizer Soln - NEB Q6H PRN SHORT OF BREATH/WHEEZING Bisacodyl 10 mg 12/10/18 11:00 12/14/18 12:21 Dulcolax Suppository - RC Not Given DAILY [facility] Chlorhexidine Gluconate 15 ml 12/08/18 11:45 12/14/18 10:14 Peridex - MM Not Given BID [facility] Cyanocobalamin 100 mcg 12/05/18 13:00 12/14/18 10:30 Vitamin B12 - PO Not Given DAILY [facility] Digoxin 0.125 mg 12/02/18 12:15 12/14/18 10:16 Lanoxin Injection - IVPUSH 0.125 mg DAILY [facility] Administration Docusate Sodium 300 mg 12/06/18 22:00 12/13/18 21:19 Colace Liquid - NGT 300 mg HS [facility] Administration Folic Acid 1 mg 12/05/18 14:15 12/14/18 10:30 Folic Acid - PO Not Given DAILY [facility] Gabapentin 100 mg 11/24/18 10:00 12/14/18 10:30 Neurontin - PO Not Given DAILY [facility] Heparin Sodium (Porcine) 5,000 unit 12/11/18 14:00 12/14/18 05:59 Heparin - SQ 5,000 unit TID [facility] Administration Famotidine/Sodium Chloride 20 mg in 50 mls @ 100 mls/hr 12/10/18 10:00 10:14 Pepcid 20 Mg Premixed Ivpb - IVPB 100 mls/hr DAILY [facility] Administration Amino Acids 1,000 mls @ 84 mls/hr 12/12/18 12:00 12/14/18 05:58 Clinimix - IV 84 mls/hr Q12H [facility] Administration Fat Emulsion Intravenous 250 mls @ 20.833 mls/hr 12/12/18 22:00 12/13/18 21: 27 Intralipid - IV 20.833 mls/hr DAILY@2200 [facility] Administration Levofloxacin 750 mg in 150 mls @ 150 mls/hr 12/13/18 10:00 12/14/18 10:15 Levaquin 750 Mg Premixed Ivpb - IVPB 12/20/18 09:59 150 mls/hr DAILY [facility] Administration Protocol Insulin Aspart 1 vial 12/03/18 10:32 12/14/18 12:00 Novolog Vial Sliding Scale - SQ 4 units ACHS [facility] Administration Protocol Insulin Detemir 8 units 12/12/18 10:39 12/13/18 21:59 Levemir Vial SQ 8 units HS [facility] Administration Ipratropium [place] 1 amp 12/10/18 12:00 12/14/18 11:48 Atrovent 0.02% Nebulizer - NEB 1 amp RQID [facility] Administration Methylprednisolone Sodium Succinate 60 mg 12/09/18 12:00 12/14/18 10:13 Solu-Medrol - IVPUSH 60 mg DAILY [facility] Administration Metoprolol Tartrate 5 mg 11/28/18 21:33 12/10/18 16:30 Lopressor Injection - IVPUSH 5 mg Q4H PRN Administration HR >120 Metoprolol Tartrate 25 mg 12/10/18 10:45 12/14/18 10:30 Lopressor - PO Not Given BID [facility] Saliva Substitute 1 applic 12/05/18 06:36 12/05/18 07:08 Mouthkote Solution - MM 1 applic Q2H PRN Administration COUGH Senna 8.8 mg 12/09/18 22:00 12/13/18 21:22 Senna Oral Solution - PO Not Given HS [facility] Thiamine HCl 200 mg 12/09/18 10:00 12/14/18 10:17 Vitamin B1 Injection - IVPB 200 mg DAILY [facility] Administration CBC, BMP 12/14/18 05:30 12/14/18 05:30 cxr very large heart Impression 1. PITO 2. hyperkalemia 3. a-flutter 4. resp failure requiring bipap 5. DM 6. HTN 7. active smoker 8. etoh abuse with liver disease 9. obesity 10. interstitial lung disease on CT scan 11. resp acidosis 12. COPD 13. positive pr3 with intermittent proteinuria and hematuria 14. hypernatremia 15 hep b core pos Plan would consider biopsy of lymph nodes or kidneys when stable- may have a hep b associated disease keep hydrated agree with antibiotics hep b ig m replace k. Note pt is on digoxin and hypokalemia can precipitate toxicity MV
--- NOTE | 2018-12-14 16:07 | PN ---
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 (short form) - Note 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: I had the pleasure of meeting w/ Ms. Villa's mother and surrogate medical decision maker Candice Villa. She was accompanied by numerous family members and requested we place a DNR/DNI order along with a no escalation of aggressive measures. They would like to precede with moving to comfort measures only, including no feeding tube and hospice placement. made aware and is in agreement. Candice would like to have Khushbu Jax sister [phone] make any future medical decisions. The whole family was in agreement with this decision. Errol ACNP Pulm/CCM
[2018-12-14] MEDS ORDERED: morphine SULFATE 4 MG/ML VIAL IVPUSH PRN (16:18)
[2018-12-14] MEDS ORDERED: MORPHINE SULFATE 2 MG/ML VIAL IVPUSH PRN ×2 (16:18→16:19)
[2018-12-14] MEDS: FAT EMULSIONS 250 ML IV SCH (21:55)
[2018-12-14] MEDS: SENNOSIDES 8.8 MG/5 ML BULK BOTTLE PO SCH (21:57)
[2018-12-14] MEDS: DOCUSATE SODIUM 100 MG CAPSULE (FP) PO SCH (21:58)
[2018-12-14] MEDS: INSULIN (LEVEMIR) 100 UNITS/ML UNITS SQ SCH (22:31)
[2018-12-15] MEDS: HEPARIN NA (PORCINE) 5,000 UNITS/ML 1ML VIAL SQ SCH ×2 (06:27→16:08)
[2018-12-15] MEDS: AMINO ACIDS 4.25%/D5W 1,000 ML IV SCH ×2 (06:28→15:59)
[2018-12-15] MEDS: INSULIN SLIDING SCALE (NOVOLOG) 1 VIAL SQ SCH ×4 (06:28→22:57)
[2018-12-15] MEDS: IPRATROPIUM BR 0.02% 0.5 MG/2.5 ML VIAL.NEB. NEB SCH ×4 (07:30→20:38)
[2018-12-15] MEDS: KCL 10 MEQ IVPB 10 MEQ/100 ML INFUS.BAG IVPB SCH ×3 (10:00→15:58)
[2018-12-15] MEDS: METOPROLOL TARTRATE 25 MG TABLET (FP) PO SCH ×2 (10:00→22:32)
[2018-12-15] MEDS: DIGOXIN 0.5 MG/2 ML AMPUL IVPUSH SCH (10:00)
[2018-12-15] MEDS: methylPREDNISolone NA SUCC 40 MG/1 ML VIAL IVPUSH SCH (10:40)
--- NOTE | 2018-12-15 10:56 | PN ---
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, KARATE INSTRUCTOR - Note 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: Medical events noted. Pt is on VM today. Now DNR/DNI/ Comfort care. NPO on Clinimix. Hospice being considered. Pt seen bedside, stating "I feel good today." Producing short sentences, eg "Straw?" requesting straw. and "arm...pain" Naming intact. Good comprehension. No clear evidence of facial asymmetry weakness. Harsh cough. c/o Left UE pain- has BP cuff on. Nursing aware. Swallowing improving. Swallow is delayed but stronger with fair VOM/ROM of laryngeal swallow. Responsive cough with thin water. Trial: Dys puree, nectar thick liquid, Magic cup, Ensure compact Aspiration precautions.
--- NOTE | 2018-12-15 11:22 | PN ---
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 (short form) - Note 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: patient seen and examined Relatively more awake family do not want any aggressive--measures They made DNR and DNI All follow-ups noted Vital Signs Temp 99.3 F 12/15/18 02:00 Pulse 57 L 12/15/18 08:28 Resp 18 12/15/18 09:00 BP 103/66 12/15/18 08:00 Pulse Ox 99 12/15/18 09:00 Intake & Output 12/14/18 12/14/18 12/15/18 11:59 23:59 11:59 Intake Total 710 1928 734 Output Total 2 2 Balance 710 1926 732 Weight 247 lb 3.2 oz Intake: IV 710 1428 734 clinimix 560 1328 584 lipids 20% 150 100 150 IVPB 500 Output: Urine 2 2 Void 2 2 Other: Voiding Method Diaper Diaper Diaper # Unmeasured Voids Bills 2 Void 4 Bowel Movement No Weight Measurement Method Built in [facility] Active Medications Albuterol Sulfate (Ventolin 0.083% Nebulizer Soln -) 1 amp NEB Q6H PRN PRN Reason: SHORT OF BREATH/WHEEZING Bisacodyl (Dulcolax Suppository -) 10 mg RC DAILY [facility] Last Admin: 12/14/18 12:21 Dose: Not Given Chlorhexidine Gluconate (Peridex -) 15 ml MM BID [facility] Last Admin: 12/14/18 21:57 Dose: Not Given Digoxin (Lanoxin Injection -) 0.125 mg IVPUSH DAILY [facility] Last Admin: 12/14/18 10:16 Dose: 0.125 mg Docusate Sodium (Colace -) 100 mg PO DAILY [facility] Last Admin: 12/14/18 21:58 Dose: Not Given Heparin Sodium (Porcine) (Heparin -) 5,000 unit SQ TID [facility] Last Admin: 12/15/18 06:27 Dose: 5,000 unit Amino Acids (Clinimix -) 1,000 mls @ 84 mls/hr IV Q12H [facility] Last Admin: 12/15/18 06:28 Dose: 84 mls/hr Fat Emulsion Intravenous (Intralipid -) 250 mls @ 20.833 mls/hr IV DAILY@2200 [facility] Last Admin: 12/14/18 21:55 Dose: 20.833 mls/hr Levofloxacin (Levaquin 750 Mg Premixed Ivpb -) 750 mg in 150 mls @ 150 mls/hr IVPB DAILY [facility]; Protocol Stop: 12/20/18 09:59 Last Admin: 12/14/18 10:15 Dose: 150 mls/hr Potassium Chloride (Potassium Chloride 10 Meq Premix Ivpb -) 10 meq in 100 mls @ 100 mls/hr IVPB Q60M [facility] Stop: 12/15/18 11:59 Insulin Aspart (Novolog Vial Sliding Scale -) 1 vial SQ ACHS [facility]; Protocol Last Admin: 12/15/18 06:28 Dose: Not Given Insulin Detemir (Levemir Vial) 8 units SQ HS [facility] Last Admin: 12/14/18 22:31 Dose: 8 units Ipratropium [place] (Atrovent 0.02% Nebulizer -) 1 amp NEB RQID [facility] Last Admin: 12/15/18 07:30 Dose: 1 amp Methylprednisolone Sodium Succinate (Solu-Medrol -) 60 mg IVPUSH DAILY [facility] Last Admin: 12/14/18 10:13 Dose: 60 mg Metoprolol Tartrate (Lopressor Injection -) 5 mg IVPUSH Q4H PRN PRN Reason: HR >120 Last Admin: 12/10/18 16:30 Dose: 5 mg Metoprolol Tartrate (Lopressor -) 25 mg PO BID [facility] Last Admin: 12/14/18 21:56 Dose: 25 mg Morphine Sulfate (Morphine Sulfate) 2 mg IVPUSH Q4H PRN PRN Reason: mild SOB Morphine Sulfate (Morphine Sulfate) 4 mg IVPUSH Q4H PRN PRN Reason: moderate SOB Last Admin: 12/15/18 01:59 Dose: 4 mg Morphine Sulfate (Morphine Sulfate) 6 mg IVPUSH Q4H PRN PRN Reason: severe SOB Saliva Substitute ([place] Solution -) 1 applic MM Q2H PRN PRN Reason: COUGH Last Admin: 12/05/18 07:08 Dose: 1 applic Senna (Senna Oral Solution -) 8.8 mg PO HS [facility] Last Admin: 12/14/18 21:57 Dose: Not Given CBC, BMP 12/14/18 05:30 12/14/18 05:30 Todays Labs -pending . Physical Exam more awake on NIPPV lungs- Bilateral breath sounds anteriorly cvs- s1, s2 rrr abd - soft / obese ext- + edema a/p Respiratory failure- Hypernatremia- better Diabetes-- hypo-- monitor ETOH abuse Renal failure-- resolving + ve DC 3/ P anca, -ve cnca ya ? overall condition--- improved Continue present care Critical care team following Patient is DNR and DNI Will follow. Problem List - Problems (1) Acute respiratory failure with hypoxia and hypercapnia Code(s): J96.01 - ACUTE RESPIRATORY FAILURE WITH HYPOXIA; J96.02 - ACUTE RESPIRATORY FAILURE WITH HYPERCAPNIA (2) Atrial flutter Code(s): I48.92 - UNSPECIFIED ATRIAL FLUTTER Qualifiers: Atrial flutter type: unspecified Qualified Code(s): I48.92 - Unspecified atrial flutter (3) Bilateral lower extremity edema Code(s): R60.0 - LOCALIZED EDEMA (4) Diabetes Code(s): E11.9 - TYPE 2 DIABETES MELLITUS WITHOUT COMPLICATIONS (5) Elevated LFTs Code(s): R94.5 - ABNORMAL RESULTS OF LIVER FUNCTION STUDIES (6) Hyperlipidemia Code(s): E78.5 - HYPERLIPIDEMIA, UNSPECIFIED (7) Morbid obesity Code(s): E66.01 - MORBID (SEVERE) OBESITY DUE TO EXCESS CALORIES (8) Acute renal failure Code(s): N17.9 - ACUTE KIDNEY FAILURE, UNSPECIFIED (9) Pulmonary hypertension Code(s): I27.20 - PULMONARY HYPERTENSION, UNSPECIFIED
[2018-12-15] MEDS: CHLORHEXIDINE GLUCONATE 0.12% 15ML CUP MM SCH ×2 (11:40→22:58)
[2018-12-15] MEDS: BISACODYL 10 MG SUPP.RECT RC SCH (12:14)
[2018-12-15] MEDS: DOCUSATE SODIUM 100 MG CAPSULE (FP) PO SCH (12:31)
[2018-12-15 12:48] LABS: BASO % 0.2 % (0-2.0); EOS % 2.5 % (0-4.5); HEMATOCRIT 40.1 % (32.4-45.2); HEMOGLOBIN 12.8 GM/dL (10.7-15.3); LYMPH % 8.1 % (8-40); MCH 30.8 pg (25.7-33.7); MCHC 31.9 g/dl (32.0-36.0); MEAN CELL VOLUME 96.7 fl (80-96); MEAN PLT VOLUME 10.7 fl (7.5-11.1); MONO % 4.2 % (3.8-10.2); PLATELET COUNT 79 K/MM3 (134-434); RBC 4.15 M/mm3 (3.60-5.2); WHITE BLOOD COUNT 7.2 K/mm3 (4.0-10.0)
--- NOTE | 2018-12-15 13:11 | PN ---
Teaching Attending Note Name of Resident: Brandi He ATTENDING PHYSICIAN STATEMENT I saw and evaluated the patient. I reviewed the resident's note and discussed the case with the resident. I agree with the resident's findings and plan as documented. SUBJECTIVE: Patient seen and examined in the ICU. Drowsy but arousable. Remains on NIPPV. No pressors. OBJECTIVE: Intake & Output 12/12/18 12/13/18 12/14/18 12/15/18 23:59 23:59 23:59 23:59 Intake Total 1740 1578 2638 734 Output Total 1200 450 2 2 Balance 540 1128 2636 732 Weight 241 lb 2.971 oz 244 lb 0.827 oz 247 lb 3.2 oz Last Vital Signs Temp Pulse Resp BP Pulse Ox 99.3 F 57 L 18 103/66 99 12/15/18 02:00 12/15/18 08:28 12/15/18 09:00 12/15/18 08:00 12/15/18 09:00 Active Medications Albuterol Sulfate (Ventolin 0.083% Nebulizer Soln -) 1 amp NEB Q6H PRN PRN Reason: SHORT OF BREATH/WHEEZING Bisacodyl (Dulcolax Suppository -) 10 mg RC DAILY [facility] Last Admin: 12/15/18 12:14 Dose: Not Given Chlorhexidine Gluconate (Peridex -) 15 ml MM BID [facility] Last Admin: 12/15/18 11:40 Dose: Not Given Digoxin (Lanoxin Injection -) 0.125 mg IVPUSH DAILY [facility] Last Admin: 12/15/18 10:00 Dose: 0.125 mg Docusate Sodium (Colace -) 100 mg PO DAILY [facility] Last Admin: 12/15/18 12:31 Dose: Not Given Heparin Sodium (Porcine) (Heparin -) 5,000 unit SQ TID [facility] Last Admin: 12/15/18 06:27 Dose: 5,000 unit Amino Acids (Clinimix -) 1,000 mls @ 84 mls/hr IV Q12H [facility] Last Admin: 12/15/18 06:28 Dose: 84 mls/hr Fat Emulsion Intravenous (Intralipid -) 250 mls @ 20.833 mls/hr IV DAILY@2200 [facility] Last Admin: 12/14/18 21:55 Dose: 20.833 mls/hr Levofloxacin (Levaquin 750 Mg Premixed Ivpb -) 750 mg in 150 mls @ 150 mls/hr IVPB DAILY [facility]; Protocol Stop: 12/20/18 09:59 Last Admin: 12/15/18 10:00 Dose: 150 mls/hr Insulin Aspart (Novolog Vial Sliding Scale -) 1 vial SQ ACHS [facility]; Protocol Last Admin: 12/15/18 12:32 Dose: 6 units Insulin Detemir (Levemir Vial) 8 units SQ HS [facility] Last Admin: 12/14/18 22:31 Dose: 8 units Ipratropium [place] (Atrovent 0.02% Nebulizer -) 1 amp NEB RQID [facility] Last Admin: 12/15/18 11:30 Dose: 1 amp Methylprednisolone Sodium Succinate (Solu-Medrol -) 60 mg IVPUSH DAILY [facility] Last Admin: 12/15/18 10:40 Dose: 60 mg Metoprolol Tartrate (Lopressor Injection -) 5 mg IVPUSH Q4H PRN PRN Reason: HR >120 Last Admin: 12/10/18 16:30 Dose: 5 mg Metoprolol Tartrate (Lopressor -) 25 mg PO BID [facility] Last Admin: 12/14/18 21:56 Dose: 25 mg Morphine Sulfate (Morphine Sulfate) 2 mg IVPUSH Q4H PRN PRN Reason: mild SOB Morphine Sulfate (Morphine Sulfate) 4 mg IVPUSH Q4H PRN PRN Reason: moderate SOB Last Admin: 12/15/18 01:59 Dose: 4 mg Morphine Sulfate (Morphine Sulfate) 6 mg IVPUSH Q4H PRN PRN Reason: severe SOB Saliva Substitute ([place] Solution -) 1 applic MM Q2H PRN PRN Reason: COUGH Last Admin: 12/05/18 07:08 Dose: 1 applic Senna (Senna Oral Solution -) 8.8 mg PO HS [facility] Last Admin: 12/14/18 21:57 Dose: Not Given Gen: Drowsy but easily arousable Heart: RRR Lung: decreased breath sounds at the bases Abd: softly distended, less ascites Ext: trace edema Laboratory Results - last 24 hr 12/14/18 12/15/18 17:04 12:19 WBC 7.2 RBC 4.15 Hgb 12.8 Hct 40.1 MCV 96.7 H MCH 30.8 MCHC 31.9 L RDW 14.0 Plt Count 79 L MPV 10.7 Absolute Neuts (auto) 6.1 Neutrophils % 85.0 H Lymphocytes % 8.1 D Monocytes % 4.2 Eosinophils % 2.5 Basophils % 0.2 Nucleated RBC % 0 POC Glucometer [phone] ASSESSMENT AND PLAN: Acute on Chronic Hypoxic and Hypercapneic Respiratory Failure improving Acute COPD Exacerbation Morbid Obesity Obstructive Sleep Apnea/Obesity Hypoventilation Syndrome Suspect Right Heart Failure Volume Overload Mediastinal Lymphadenopathy Atrial Fibrillation with RVR Cellulitis treated Acute Kidney Injury Alcohol Abuse - rate control - continue anticoagulation - Medrol - inhaled bronchodilators but minimize beta agonists - Daily Lasix - completed antibiotics - monitor urine output, creatinine - NIPPV as needed to assist in work of breathing - LTAC evaluation - DVT/GI prophylaxis - Noted that the patient was made DNR/DNI and family has requested no escalation of therapy - 4W / 4S monitoring Dr Dixon
[2018-12-15 13:19] LABS: ALBUMIN 2.2 g/dl (3.4-5.0); ALK PHOS 162 U/L (45-117); ANION GAP 5 MMOL/L (8-16); BILIRUBIN,TOTAL 0.8 mg/dL (0.2-1); BLOOD UREA NITROGEN 47 mg/dL (7-18); CALCIUM 7.6 mg/dL (8.5-10.1); CHLORIDE 102 mmol/L (98-107); CO2 33 mmol/L (21-32); CREATININE 0.9 mg/dL (0.55-1.3); GLUCOSE,RANDOM 206 mg/dL (74-106); SGOT/AST 49 U/L (15-37); SGPT/ALT 57 U/L (13-61); SODIUM 140 mmol/L (136-145)
--- NOTE | 2018-12-15 14:34 | PN ---
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 (short form) - Note 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: Patient seen and examined at bedside Per documentation from yesterday family does not want to escalate care Family decided to move towards comfort measures Vital Signs Temperature 99.3 F 12/15/18 02:00 Pulse Rate 66 12/15/18 14:00 Respiratory Rate 18 12/15/18 14:00 Blood Pressure 138/78 12/15/18 14:00 O2 Sat by Pulse Oximetry (%) 99 12/15/18 09:00 PE: Gen:NAD lying in bed on BiPAP. DOes not know where she is but is able to follow simple commands and answer simple questions. Heart: RRR S1 S2 Lung: Diminished breath sounds bilaterally Abd: soft, nontender 1+ pitting edema 12/15/18 12/15/18 12:05 12:19 WBC 7.2 RBC 4.15 Hgb 12.8 Hct 40.1 MCV 96.7 H MCHC 31.9 L RDW 14.0 Plt Count 79 L Neutrophils % 85.0 H Lymphocytes % 8.1 D Monocytes % 4.2 Eosinophils % 2.5 Basophils % 0.2 Sodium 140 Potassium 3.0 L Chloride 102 Carbon Dioxide 33 H Anion Gap 5 L BUN 47 H Creatinine 0.9 12/11/18 15:30 Urine Culture - Final Urine - Urine - Catheterized NO GROWTH OBTAINED 11/24/18 04:00 Blood Culture - Final Blood - Peripheral Venous NO GROWTH AFTER 5 DAYS INCUBATION 11/24/18 04:00 Blood Culture - Final Blood - Peripheral Venous NO GROWTH AFTER 5 DAYS INCUBATION 11/24/18 12:50 Urine Culture - Final Urine - Urine Clean Catch NO GROWTH OBTAINED 11/24/18 12:25 Legionella Antigen - Final Urine For Antigen Detection Streptococcus pneumoniae Antigen (M - Final 53F with multiple medical problems including COPD, alcohol abuse, TRINH, obesity, HTN, HLD, in respiratory failure. Neuro pain control frequent reorientation CV - Patient having runs of narrow complex tachycardia up to 180s episodes of SVT and A fib with RVR Cardiology consult Dr Jefferson/Mil appreciated A-fib with RVR-continue digoxin continue metoprolol 25mg po BID Metroprolol IV PRN HTN metoprolol Hypervolemia w/ pulmonary congestion improved Pulm Acute hypercapnic respiratory failure due to pulmonary edema Stop symbicort since has LABA and patient with tachycardia atrovent QID Albuterol nebs PRN only continue solumedrol ILD new diagnosed on CT continue solu-medrol High resolution chest CT done and noted GI Speech and swallow consult appreciated continue thiamine having BM with bowel regimen Senna/Colace GI Ppx Protonix Start dysphagia puree with nectar thickened liquids and compact ensure and magic cup per speech and swallow PITO continues to improve Cr 1.0 today Hypokalemia replete potassium Hypernatremia improving Heme DVT Ppx: scds, eliquis ID Off Abx Endo DM fingersticks for BGM ACHS ISS/Levemir Morbid obesity Dispo: Patient continues to require ICU level of care. CCTime 36 min
[2018-12-15] MEDS ORDERED: POTASSIUM CHLORIDE TABS 20 MEQ TABLET.ER (FP) PO ONE (14:42)
--- NOTE | 2018-12-15 14:59 | PN ---
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, Physician History of Present Illness: 53 YO white woman with h/o COPD (placed on steroid course 2 days ago without relief) acute/chronic alcoholism (several glasses of rum daily), long-term cigarette smoker, sleep apnea, morbid obesity, DM, HTN, hyperlipidemia, chronic erythema of LEs with hx cellulitis, metabolic syndrome, who is now admitted with SOB and wheezing similar to her prior COPD exacerbation. She additionally notes awakening in the middle of the night last night with visual hallucinations. She additionally notes abdominal swelling recently, believes she has an abdominal infection but does not know what kind. Denies h/o heart arrhythmia. She has noticed her lips are more blue than normal. - Current Medication List Current Medications: Active Medications Albuterol Sulfate (Ventolin 0.083% Nebulizer Soln -) 1 amp NEB Q6H PRN PRN Reason: SHORT OF BREATH/WHEEZING Apixaban (Eliquis -) 5 mg PO BID [facility] Bisacodyl (Dulcolax Suppository -) 10 mg RC DAILY [facility] Last Admin: 12/15/18 12:14 Dose: Not Given Chlorhexidine Gluconate (Peridex -) 15 ml MM BID [facility] Last Admin: 12/15/18 11:40 Dose: Not Given Digoxin (Lanoxin Injection -) 0.125 mg IVPUSH DAILY [facility] Last Admin: 12/15/18 10:00 Dose: 0.125 mg Docusate Sodium (Colace -) 100 mg PO DAILY [facility] Last Admin: 12/15/18 12:31 Dose: Not Given Amino Acids (Clinimix -) 1,000 mls @ 84 mls/hr IV Q12H [facility] Last Admin: 12/15/18 06:28 Dose: 84 mls/hr Fat Emulsion Intravenous (Intralipid -) 250 mls @ 20.833 mls/hr IV DAILY@2200 [facility] Last Admin: 12/14/18 21:55 Dose: 20.833 mls/hr Levofloxacin (Levaquin 750 Mg Premixed Ivpb -) 750 mg in 150 mls @ 150 mls/hr IVPB DAILY [facility]; Protocol Stop: 12/20/18 09:59 Last Admin: 12/15/18 10:00 Dose: 150 mls/hr Insulin Aspart (Novolog Vial Sliding Scale -) 1 vial SQ ACHS [facility]; Protocol Last Admin: 12/15/18 12:32 Dose: 6 units Insulin Detemir (Levemir Vial) 8 units SQ [facility] Last Admin: 12/14/18 22:31 Dose: 8 units Ipratropium [place] (Atrovent 0.02% Nebulizer -) 1 amp NEB RQID [facility] Last Admin: 12/15/18 11:30 Dose: 1 amp Methylprednisolone Sodium Succinate (Solu-Medrol -) 60 mg IVPUSH DAILY [facility] Last Admin: 12/15/18 10:40 Dose: 60 mg Metoprolol Tartrate (Lopressor Injection -) 5 mg IVPUSH Q4H PRN PRN Reason: HR >120 Last Admin: 12/10/18 16:30 Dose: 5 mg Metoprolol Tartrate (Lopressor -) 25 mg PO BID [facility] Last Admin: 12/14/18 21:56 Dose: 25 mg Morphine Sulfate (Morphine Sulfate) 2 mg IVPUSH Q4H PRN PRN Reason: mild SOB Morphine Sulfate (Morphine Sulfate) 4 mg IVPUSH Q4H PRN PRN Reason: moderate SOB Last Admin: 12/15/18 01:59 Dose: 4 mg Morphine Sulfate (Morphine Sulfate) 6 mg IVPUSH Q4H PRN PRN Reason: severe SOB Potassium Chloride (K-Dur -) 40 meq PO ONCE ONE Stop: 12/15/18 14:43 Saliva Substitute (Mouthkote Solution -) 1 applic MM Q2H PRN PRN Reason: COUGH Last Admin: 12/05/18 07:08 Dose: 1 applic Senna (Senna Oral Solution -) 8.8 mg PO [facility] Last Admin: 12/14/18 21:57 Dose: Not Given - Objective Vital Signs: Vital Signs Temperature 99.3 F 12/15/18 02:00 Pulse Rate 66 12/15/18 14:00 Respiratory Rate 18 12/15/18 14:00 Blood Pressure 138/78 12/15/18 14:00 O2 Sat by Pulse Oximetry (%) 99 12/15/18 09:00 Eyes: Yes: WNL, Conjunctiva Clear, EOM Intact HENT: Yes: WNL, Atraumatic, Normocephalic Neck: Yes: WNL, Supple, Trachea Midline Cardiovascular: Yes: WNL, Regular Rate and Rhythm Respiratory: Yes: WNL, Regular, CTA Bilaterally Gastrointestinal: Yes: WNL, Normal Bowel Sounds Genitourinary: Yes: WNL Musculoskeletal: Yes: WNL Extremities: Yes: WNL Edema: Yes Integumentary: Yes: WNL Neurological: Yes: WNL, Alert, Oriented ...Motor Strength: WNL Psychiatric: Yes: WNL Labs: CBC, BMP 12/15/18 12:19 12/15/18 12:05 INR, PTT INR 1.13 (0.83-1.09) H 11/23/18 16:40 Assessment/Plan - Problems (1) Atrial flutter Assessment/Plan: On metoprolol tartrate PO for HR control. On digoxin 0.125 mg daily; keep level 0.5-1.0 (presently reduced from 1.59 to 0.76) On apixaban for anticoagulation. ECHO: unable to assess LVEF; repeat when pt able to turn on left side for better windows (or get MUGA). Code(s): I48.92 - UNSPECIFIED ATRIAL FLUTTER Qualifiers: Atrial flutter type: unspecified Qualified Code(s): I48.92 - Unspecified atrial flutter (2) Morbid obesity Code(s): E66.01 - MORBID (SEVERE) OBESITY DUE TO EXCESS CALORIES (3) HTN (hypertension) Assessment/Plan: Off pressors; BP now ;more consistently elevated. On metoprolol tartrate PO. Improving renal status: consider adding ACEI or ARB (HTN; ?systolic CHF; DM). F/u ECHO for LVEF, wall thickness, chamber sizes, valve status when able to position pt for better windows. Consider MUGA if unable to obtain LVEF from ECHO. Code(s): I10 - ESSENTIAL (PRIMARY) HYPERTENSION (4) Diabetes Assessment/Plan: on Levemir, Novolog. Consider starting ACEI or ARB (HTN, with more regularly elevated BP; ?systolic CHF; DM; improving renal status; now hypokalemic). Aggressive lipid control: start statin. Code(s): E11.9 - TYPE 2 DIABETES MELLITUS WITHOUT COMPLICATIONS (5) [place] cardiac risk >20% in next 10 years Assessment/Plan: TNI negative x 2. BP and glucose control. Keep LDL cholesterol < 70 mg/dL. Smoking cessation. Dietary consult; weight loss. Exercise will be important in the future. Coronary artery evaluation when stable (stress MIBI and/or coronary angiogram). Code(s): Z91.89 - OTH PERSONAL RISK FACTORS, NOT ELSEWHERE CLASSIFIED (6) Alcoholism Assessment/Plan: On Vit B12 and Folate Code(s): F10.20 - ALCOHOL DEPENDENCE, UNCOMPLICATED (7) Ascites Code(s): R18.8 - OTHER ASCITES (8) Interstitial lung disease Assessment/Plan: Moderate pulmonary HTN and RV hypokinesis. TRINH. O2, bronchodilators, steroids per pumonologist. Code(s): J84.9 - INTERSTITIAL PULMONARY DISEASE, UNSPECIFIED (9) CHF (congestive heart failure) Assessment/Plan: Elevated BNP. JVD. F/u BUN/Cr, electrolytes, daily weight, IS and Os,. ECHO repeat for LVEF when pt better able to cooperate (and move on left side); otherwise, consder MUGA for LVEF. Present control of AF/flutter HR with meoprolol and digoxin. Consider start ACEI or ARB (?systolic CHF; DM; HTN; hypokalemia). Code(s): I50.9 - HEART FAILURE, UNSPECIFIED (10) Renal dysfunction Assessment/Plan: improving status; f/u Is and Os, BUN/Cr. Code(s): N28.9 - DISORDER OF KIDNEY AND URETER, UNSPECIFIED (11) Respiratory failure Assessment/Plan: ISLD. TRINH On Bipap, Solumedrol, Atrovent, Ventolin. Code(s): J96.90 - RESPIRATORY FAILURE, UNSP, UNSP W HYPOXIA OR HYPERCAPNIA (12) Sleep apnea Code(s): G47.30 - SLEEP APNEA, UNSPECIFIED (13) Hyperlipidemia Assessment/Plan: LDL cholesterol 108/ HDL 31; trigly 151 mg/dL. LFTs have markedly improved; now WNL. Recommend starting statin (high [place] risk; DM); keep LDL well below 70 mg/ dL. Code(s): E78.5 - HYPERLIPIDEMIA, UNSPECIFIED CCU time spent: 35 minutes.
[2018-12-15] MEDS: APIXABAN 5 MG TABLET PO SCH ×2 (16:18→22:32)
--- NOTE | 2018-12-15 17:58 | PN ---
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, Physician History of Present Illness: Pt seen and examined at bedside. She is extubated. Pt remains confused. - Current Medication List Current Medications: Active Medications Albuterol Sulfate (Ventolin 0.083% Nebulizer Soln -) 1 amp NEB Q6H PRN PRN Reason: SHORT OF BREATH/WHEEZING Apixaban (Eliquis -) 5 mg PO BID [facility] Last Admin: 12/15/18 16:18 Dose: 5 mg Bisacodyl (Dulcolax Suppository -) 10 mg RC DAILY [facility] Last Admin: 12/15/18 12:14 Dose: Not Given Chlorhexidine Gluconate (Peridex -) 15 ml MM BID [facility] Last Admin: 12/15/18 11:40 Dose: Not Given Digoxin (Lanoxin Injection -) 0.125 mg IVPUSH DAILY [facility] Last Admin: 12/15/18 10:00 Dose: 0.125 mg Docusate Sodium (Colace -) 100 mg PO DAILY [facility] Last Admin: 12/15/18 12:31 Dose: Not Given Amino Acids (Clinimix -) 1,000 mls @ 84 mls/hr IV Q12H [facility] Last Admin: 12/15/18 15:59 Dose: Not Given Fat Emulsion Intravenous (Intralipid -) 250 mls @ 20.833 mls/hr IV DAILY@2200 [facility] Last Admin: 12/14/18 21:55 Dose: 20.833 mls/hr Levofloxacin (Levaquin 750 Mg Premixed Ivpb -) 750 mg in 150 mls @ 150 mls/hr IVPB DAILY [facility]; Protocol Stop: 12/20/18 09:59 Last Admin: 12/15/18 10:00 Dose: 150 mls/hr Insulin Aspart (Novolog Vial Sliding Scale -) 1 vial SQ ACHS [facility]; Protocol Last Admin: 12/15/18 17:08 Dose: 6 units Insulin Detemir (Levemir Vial) 8 units SQ HS [facility] Last Admin: 12/14/18 22:31 Dose: 8 units Ipratropium [place] (Atrovent 0.02% Nebulizer -) 1 amp NEB RQID [facility] Last Admin: 12/15/18 16:26 Dose: 1 amp Methylprednisolone Sodium Succinate (Solu-Medrol -) 60 mg IVPUSH DAILY [facility] Last Admin: 12/15/18 10:40 Dose: 60 mg Metoprolol Tartrate (Lopressor Injection -) 5 mg IVPUSH Q4H PRN PRN Reason: HR >120 Last Admin: 12/10/18 16:30 Dose: 5 mg Metoprolol Tartrate (Lopressor -) 25 mg PO BID [facility] Last Admin: 12/15/18 10:00 Dose: Not Given Morphine Sulfate (Morphine Sulfate) 2 mg IVPUSH Q4H PRN PRN Reason: mild SOB Morphine Sulfate (Morphine Sulfate) 4 mg IVPUSH Q4H PRN PRN Reason: moderate SOB Last Admin: 12/15/18 01:59 Dose: 4 mg Morphine Sulfate (Morphine Sulfate) 6 mg IVPUSH Q4H PRN PRN Reason: severe SOB Saliva Substitute (Mouthkote Solution -) 1 applic MM Q2H PRN PRN Reason: COUGH Last Admin: 12/05/18 07:08 Dose: 1 applic Senna (Senna Oral Solution -) 8.8 mg PO HS [facility] Last Admin: 12/14/18 21:57 Dose: Not Given - Objective Vital Signs: Vital Signs Temperature 99.3 F 12/15/18 02:00 Pulse Rate 65 12/15/18 16:00 Respiratory Rate 18 12/15/18 16:00 Blood Pressure 127/79 12/15/18 16:00 O2 Sat by Pulse Oximetry (%) 99 12/15/18 09:00 Constitutional: Yes: Calm Eyes: Yes: Conjunctiva Clear Cardiovascular: Yes: S1, S2 Respiratory: Yes: On Venti-Mask Gastrointestinal: Yes: Soft, Abdomen, Obese Genitourinary: Yes: Incontinence Musculoskeletal: Yes: Muscle Weakness Edema: Yes Edema: LLE: Trace, RLE: Trace Neurological: Yes: Confusion Labs: CBC, BMP 12/15/18 12:19 12/15/18 12:05 INR, PTT INR 1.13 (0.83-1.09) H 11/23/18 16:40 Problem List - Problems (1) Hyperkalemia Code(s): E87.5 - HYPERKALEMIA (2) Acute on chronic respiratory failure with hypoxia and hypercapnia Code(s): J96.21 - ACUTE AND CHRONIC RESPIRATORY FAILURE WITH HYPOXIA; J96.22 - ACUTE AND CHRONIC RESPIRATORY FAILURE WITH HYPERCAPNIA (3) Acute renal failure Code(s): N17.9 - ACUTE KIDNEY FAILURE, UNSPECIFIED (4) Alcoholism Code(s): F10.20 - ALCOHOL DEPENDENCE, UNCOMPLICATED (5) Atrial flutter Code(s): I48.92 - UNSPECIFIED ATRIAL FLUTTER Qualifiers: Atrial flutter type: unspecified Qualified Code(s): I48.92 - Unspecified atrial flutter (6) Bilateral lower extremity edema Code(s): R60.0 - LOCALIZED EDEMA (7) COPD exacerbation Code(s): J44.1 - CHRONIC OBSTRUCTIVE PULMONARY DISEASE W (ACUTE) EXACERBATION Assessment/Plan Current Medications Generic Name Dose Route Start Last Admin Trade Name Freq PRN Reason Stop Dose Admin Albuterol Sulfate 1 amp 12/10/18 10:43 Ventolin 0.083% Nebulizer Soln - NEB Q6H PRN SHORT OF BREATH/WHEEZING Apixaban 5 mg 12/15/18 16:15 12/15/18 16:18 Eliquis - PO 5 mg BID [facility] Administration Bisacodyl 10 mg 12/10/18 11:00 12/15/18 12:14 Dulcolax Suppository - RC Not Given DAILY [facility] Chlorhexidine Gluconate 15 ml 12/08/18 11:45 12/15/18 11:40 Peridex - MM Not Given BID [facility] Digoxin 0.125 mg 12/02/18 12:15 12/15/18 10:00 Lanoxin Injection - IVPUSH 0.125 mg DAILY [facility] Administration Docusate Sodium 100 mg 12/14/18 21:30 12/15/18 12:31 Colace - PO Not Given DAILY [facility] Amino Acids 1,000 mls @ 84 mls/hr 12/12/18 12:00 12/15/18 15:59 Clinimix - IV Not Given Q12H [facility] Fat Emulsion Intravenous 250 mls @ 20.833 mls/hr 12/12/18 22:00 12/14/18 21: 55 Intralipid - IV 20.833 mls/hr DAILY@2200 [facility] Administration Levofloxacin 750 mg in 150 mls @ 150 mls/hr 12/13/18 10:00 12/15/18 10:00 Levaquin 750 Mg Premixed Ivpb - IVPB 12/20/18 09:59 150 mls/hr DAILY [facility] Administration Protocol Insulin Aspart 1 vial 12/03/18 10:32 12/15/18 17:08 Novolog Vial Sliding Scale - SQ 6 units ACHS [facility] Administration Protocol Insulin Detemir 8 units 12/12/18 10:39 12/14/18 22:31 Levemir Vial SQ 8 units HS [facility] Administration Ipratropium [place] 1 amp 12/10/18 12:00 12/15/18 16:26 Atrovent 0.02% Nebulizer - NEB 1 amp RQID [facility] Administration Methylprednisolone Sodium Succinate 60 mg 12/09/18 12:00 12/15/18 10:40 Solu-Medrol - IVPUSH 60 mg DAILY [facility] Administration Metoprolol Tartrate 5 mg 11/28/18 21:33 12/10/18 16:30 Lopressor Injection - IVPUSH 5 mg Q4H PRN Administration HR >120 Metoprolol Tartrate 25 mg 12/10/18 10:45 12/15/18 10:00 Lopressor - PO Not Given BID [facility] Morphine Sulfate 2 mg 12/14/18 16:18 Morphine Sulfate IVPUSH Q4H PRN mild SOB Morphine Sulfate 4 mg 12/14/18 16:18 12/15/18 01:59 Morphine Sulfate IVPUSH 4 mg Q4H PRN Administration moderate SOB Morphine Sulfate 6 mg 12/14/18 16:19 Morphine Sulfate IVPUSH Q4H PRN severe SOB Saliva Substitute 1 applic 12/05/18 06:36 12/05/18 07:08 Mouthkote Solution - MM 1 applic Q2H PRN Administration COUGH Senna 8.8 mg 12/09/18 22:00 12/14/18 21:57 Senna Oral Solution - PO Not Given HS [facility] Impression 1. PITO 2. hyperkalemia 3. a-flutter 4. resp failure requiring bipap 5. DM 6. HTN 7. active smoker 8. etoh abuse 9. obesity 10. interstitial lung disease on CT scan 11. resp acidosis 12. COPD 13. positive pr3 14. hypernatremia Plan - cont to monitor renal function - will need tissue biopsy once stable - replace lytes - discussed with ICU team - pt has been off of aspirin - asa on hold - will follow closely
[2018-12-15] MEDS ORDERED: PT OWN MED DRAWER 7, Y5N ONE (22:20)
[2018-12-15] MEDS: INSULIN (LEVEMIR) 100 UNITS/ML UNITS SQ SCH (22:56)
[2018-12-15] MEDS: FAT EMULSIONS 250 ML IV SCH (22:56)
[2018-12-15] MEDS: SENNOSIDES 8.8 MG/5 ML BULK BOTTLE PO SCH (22:58)
[2018-12-16 06:30] LABS: BASO % 0.2 % (0-2.0); EOS % 3.5 % (0-4.5); HEMATOCRIT 43.5 % (32.4-45.2); HEMOGLOBIN 13.9 GM/dL (10.7-15.3); LYMPH % 18.1 % (8-40); MCH 30.7 pg (25.7-33.7); MEAN CELL VOLUME 95.9 fl (80-96); MEAN PLT VOLUME 10.9 fl (7.5-11.1); NEUT % 72.2 % (42.8-82.8); PLATELET COUNT 97 K/MM3 (134-434); RBC 4.54 M/mm3 (3.60-5.2); RDW 14.7 % (11.6-15.6); WHITE BLOOD COUNT 7.6 K/mm3 (4.0-10.0)
[2018-12-16 06:59] LABS: ALBUMIN 2.1 g/dl (3.4-5.0); ALK PHOS 146 U/L (45-117); ANION GAP 6 MMOL/L (8-16); BILIRUBIN,TOTAL 0.6 mg/dL (0.2-1); BLOOD UREA NITROGEN 43 mg/dL (7-18); CHLORIDE 103 mmol/L (98-107); CO2 32 mmol/L (21-32); CREATININE 0.7 mg/dL (0.55-1.3); GLUCOSE,RANDOM 107 mg/dL (74-106); MAGNESIUM 1.6 mg/dL (1.8-2.4); PHOSPHOROUS 2.5 mg/dL (2.5-4.9); POTASSIUM 3.2 mmol/L (3.5-5.1); SGOT/AST 34 U/L (15-37); SGPT/ALT 51 U/L (13-61); SODIUM 141 mmol/L (136-145); TOT PROT 5.2 g/dl (6.4-8.2)
--- NOTE | 2018-12-16 07:34 | PN ---
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, Physician Chief Complaint: Pt more alert; knows the date and year ("January" for month); wants to be repositioned in bed. No chest pain; able to move all limbs slightly on request. Asks if I have any pets because "there is a white dog here sometimes". History of Present Illness: 53 YO white woman with h/o COPD (placed on steroid course 2 days ago without relief) acute/chronic alcoholism (several glasses of rum daily), long-term cigarette smoker, sleep apnea, morbid obesity, DM, HTN, hyperlipidemia, chronic erythema of LEs with hx cellulitis, metabolic syndrome, who is now admitted with SOB and wheezing similar to her prior COPD exacerbation. She additionally notes awakening in the middle of the night last night with visual hallucinations. She additionally notes abdominal swelling recently, believes she has an abdominal infection but does not know what kind. Denies h/o heart arrhythmia. She has noticed her lips are more blue than normal. - Current Medication List Current Medications: Active Medications Albuterol Sulfate (Ventolin 0.083% Nebulizer Soln -) 1 amp NEB Q6H PRN PRN Reason: SHORT OF BREATH/WHEEZING Apixaban (Eliquis -) 5 mg PO BID [facility] Last Admin: 12/15/18 22:32 Dose: 5 mg Bisacodyl (Dulcolax Suppository -) 10 mg RC DAILY [facility] Last Admin: 12/15/18 12:14 Dose: Not Given Chlorhexidine Gluconate (Peridex -) 15 ml MM BID [facility] Last Admin: 12/15/18 22:58 Dose: Not Given Digoxin (Lanoxin Injection -) 0.125 mg IVPUSH DAILY [facility] Last Admin: 12/15/18 10:00 Dose: 0.125 mg Docusate Sodium (Colace -) 100 mg PO DAILY [facility] Last Admin: 12/15/18 12:31 Dose: Not Given Amino Acids (Clinimix -) 1,000 mls @ 84 mls/hr IV Q12H [facility] Last Admin: 12/16/18 00:00 Dose: 84 mls/hr Fat Emulsion Intravenous (Intralipid -) 250 mls @ 20.833 mls/hr IV DAILY@2200 [facility] Last Admin: 12/15/18 22:56 Dose: 20.833 mls/hr Levofloxacin (Levaquin 750 Mg Premixed Ivpb -) 750 mg in 150 mls @ 150 mls/hr IVPB DAILY [facility]; Protocol Stop: 12/20/18 09:59 Last Admin: 12/15/18 10:00 Dose: 150 mls/hr Magnesium Sulfate 4 gm/ (Miscellaneous) 100 mls @ 100 mls/hr IVPB ONCE ONE Stop: 12/16/18 08:25 Insulin Aspart (Novolog Vial Sliding Scale -) 1 vial SQ [facility]; Protocol Last Admin: 12/15/18 22:57 Dose: 2 units Insulin Detemir (Levemir Vial) 8 units SQ [facility] Last Admin: 12/15/18 22:56 Dose: 8 units Ipratropium [place] (Atrovent 0.02% Nebulizer -) 1 amp NEB RQID [facility] Last Admin: 12/15/18 20:38 Dose: 1 amp Methylprednisolone Sodium Succinate (Solu-Medrol -) 60 mg IVPUSH DAILY [facility] Last Admin: 12/15/18 10:40 Dose: 60 mg Metoprolol Tartrate (Lopressor Injection -) 5 mg IVPUSH Q4H PRN PRN Reason: HR >120 Last Admin: 12/10/18 16:30 Dose: 5 mg Metoprolol Tartrate (Lopressor -) 25 mg PO BID [facility] Last Admin: 12/15/18 22:32 Dose: 25 mg Morphine Sulfate (Morphine Sulfate) 2 mg IVPUSH Q4H PRN PRN Reason: mild SOB Morphine Sulfate (Morphine Sulfate) 4 mg IVPUSH Q4H PRN PRN Reason: moderate SOB Last Admin: 12/15/18 01:59 Dose: 4 mg Morphine Sulfate (Morphine Sulfate) 6 mg IVPUSH Q4H PRN PRN Reason: severe SOB Saliva Substitute (Mouthkote Solution -) 1 applic MM Q2H PRN PRN Reason: COUGH Last Admin: 12/05/18 07:08 Dose: 1 applic Senna (Senna Oral Solution -) 8.8 mg PO [facility] Last Admin: 12/15/18 22:58 Dose: 8.8 5ml - Objective Vital Signs: Vital Signs Temperature 98.2 F 12/16/18 02:00 Pulse Rate 80 12/16/18 06:00 Respiratory Rate 20 12/16/18 06:00 Blood Pressure 125/75 12/16/18 06:00 O2 Sat by Pulse Oximetry (%) 100 01/14/19 21:00 Constitutional: Yes: Calm, Obese Eyes: Yes: WNL HENT: Yes: WNL Neck: Yes: Decreased ROM Cardiovascular: Yes: S1 (varies in intensity), S2 Respiratory: Yes: Diminished, On Venti-Mask, SOB on Exertion Gastrointestinal: Yes: Abdomen, Obese Genitourinary: No: Anuria Musculoskeletal: Yes: Muscle Weakness Extremities: Yes: Cool Edema: No Peripheral Pulses WNL: Yes Integumentary: Yes: Erythema Neurological: Yes: Alert, Oriented, Confusion, Weakness Psychiatric: Yes: Alert, Oriented, Other Labs: CBC, BMP 12/16/18 05:30 12/16/18 05:30 INR, PTT INR 1.13 (0.83-1.09) H 11/23/18 16:40 Abnormal Lab Results 12/12/18 12/16/18 12/16/18 05:30 05:30 05:30 Plt Count 97 L D Potassium 3.2 L Anion Gap 6 L BUN 43 H Random Glucose 107 H Calcium 8.0 L Magnesium 1.6 L Alkaline Phosphatase 146 H Total Protein 5.2 L Albumin 2.1 L Ur Specific [place] Urine Glucose (UA) Urine Blood Urine Urobilinogen Digoxin 0.79 L S.cerevisiae IgG Ab 36.1 H S. cerevisiae IgG/IgA 135.1 H 12/16/18 16:00 Plt Count Potassium Anion Gap BUN Random Glucose Calcium Magnesium Alkaline Phosphatase Total Protein Albumin Ur Specific [place] 1.009 L Urine Glucose (UA) 1+ H Urine Blood 1+ H Urine Urobilinogen 4.0 e.u/dl H Digoxin S.cerevisiae IgG Ab S. cerevisiae IgG/IgA - ....Imaging Chest X-ray: Image Reviewed Other: Image Reviewed (telemetry: AF, controlled VR.) Problem List - Problems (1) Atrial flutter Assessment/Plan: On metoprolol tartrate PO bid for HR control (pt reportedly sometimes refuses to take PO; on IVP prn). On digoxin 0.125 mg daily; keep level 0.5-1.0 (presently reduced from 1.59 to 0.76); check level today. On apixaban for anticoagulation. ECHO: unable to assess LVEF; repeat when pt able to turn on left side for better windows (or get MUGA) Code(s): I48.92 - UNSPECIFIED ATRIAL FLUTTER Qualifiers: Atrial flutter type: unspecified Qualified Code(s): I48.92 - Unspecified atrial flutter (2) Morbid obesity Code(s): E66.01 - MORBID (SEVERE) OBESITY DUE TO EXCESS CALORIES (3) HTN (hypertension) Assessment/Plan: Off pressors; BP now more consistently elevated. On metoprolol tartrate PO bid, but pt sometimes refuses it (also on metoprolol IVP prn). Improving renal status: enalapril 1.25 mg q6h IVPB. F/u ECHO for LVEF, wall thickness, chamber sizes, valve status when able to position pt for better windows (will attempt again 12/17/18 now that pt is more alert and cooperative, not intubated) . Consider MUGA if unable to obtain LVEF from ECHO. Code(s): I10 - ESSENTIAL (PRIMARY) HYPERTENSION (4) Diabetes Assessment/Plan: on Levemir, Novolog. Consider starting ACEI or ARB (HTN, with more regularly elevated BP; ?systolic CHF; DM; improving renal status; now hypokalemic). Aggressive lipid control: start statin. Code(s): E11.9 - TYPE 2 DIABETES MELLITUS WITHOUT COMPLICATIONS (5) [place] cardiac risk >20% in next 10 years Assessment/Plan: TNI negative x 2. BP and glucose control. Keep LDL cholesterol < 70 mg/dL. Smoking cessation. Dietary consult; weight loss. Exercise will be important in the future. Coronary artery evaluation when stable (stress MIBI and/or coronary angiogram). Pt says today that she was scheduled for stress test recently, but "then I got sick". Code(s): Z91.89 - OTH PERSONAL RISK FACTORS, NOT ELSEWHERE CLASSIFIED (6) Alcoholism Code(s): F10.20 - ALCOHOL DEPENDENCE, UNCOMPLICATED (7) Ascites Code(s): R18.8 - OTHER ASCITES (8) Interstitial lung disease Code(s): J84.9 - INTERSTITIAL PULMONARY DISEASE, UNSPECIFIED (9) CHF (congestive heart failure) Assessment/Plan: Elevated BNP. F/u BUN/Cr, electrolytes, daily weight, IS and Os,. ECHO repeat for LVEF when pt better able to cooperate (and move on left side); otherwise, consder MUGA for LVEF. Present control of AF/flutter HR with meoprolol and digoxin. Start enalapril 1.25 mg q6h IVPB until able to take PO meds reliably (?systolic CHF; DM; HTN; hypokalemia). Code(s): I50.9 - HEART FAILURE, UNSPECIFIED (10) Renal dysfunction Assessment/Plan: improving status; f/u Is and Os, BUN/Cr. Code(s): N28.9 - DISORDER OF KIDNEY AND URETER, UNSPECIFIED (11) Respiratory failure Assessment/Plan: ISLD. TRINH Improving; f/u with pulmonoogist. Code(s): J96.90 - RESPIRATORY FAILURE, UNSP, UNSP W HYPOXIA OR HYPERCAPNIA (12) Sleep apnea Code(s): G47.30 - SLEEP APNEA, UNSPECIFIED (13) Hyperlipidemia Assessment/Plan: LDL cholesterol 108/ HDL 31; trigly 151 mg/dL. LFTs have markedly improved; now WNL. Recommend starting statin (high [place] risk; DM); keep LDL well below 70 mg/ dL. Code(s): E78.5 - HYPERLIPIDEMIA, UNSPECIFIED (14) Hypomagnesemia Assessment/Plan: Repeat, and keep 2-2.4 Keep K+ 4-4.5. Keep PO4 2.5-4.9. Now on ACEI. Code(s): E83.42 - HYPOMAGNESEMIA Assessment/Plan CCU time spent: 40 minutes
[2018-12-16] MEDS: INSULIN SLIDING SCALE (NOVOLOG) 1 VIAL SQ SCH ×4 (07:41→21:46)
[2018-12-16] MEDS ORDERED: MAGNESIUM SULFATE IN WATER 4 GM/50 ML IVPB IVPB ONE (08:30)
--- NOTE | 2018-12-16 08:44 | PN ---
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 (short form) - Note 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: awake and alert no pain , distress 12/15/18 12/15/18 12/15/18 09:00 10:00 12:00 Temperature Pulse Rate 57 L 58 L Respiratory 18 18 20 Rate Blood Pressure 106/61 122/68 O2 Sat by Pulse 99 Oximetry (%) 12/15/18 12/15/18 12/15/18 14:00 16:00 18:00 Temperature Pulse Rate 66 65 58 L Respiratory 18 18 18 Rate Blood Pressure 138/78 127/79 133/72 O2 Sat by Pulse Oximetry (%) 12/15/18 12/15/18 12/15/18 20:00 21:00 22:00 Temperature 98.4 F Pulse Rate 104 H 92 H Respiratory 25 H 15 Rate Blood Pressure 119/90 132/82 O2 Sat by Pulse 100 Oximetry (%) 12/16/18 12/16/18 12/16/18 00:00 02:00 04:00 Temperature 98.2 F Pulse Rate 53 L 53 L 73 Respiratory 17 17 17 Rate Blood Pressure 122/65 121/67 128/72 O2 Sat by Pulse Oximetry (%) 12/16/18 06:00 Temperature Pulse Rate 80 Respiratory 20 Rate Blood Pressure 125/75 O2 Sat by Pulse Oximetry (%) Current Medications Generic Name Dose Route Start Last Admin Trade Name Freq PRN Reason Stop Dose Admin Albuterol Sulfate 1 amp 12/10/18 10:43 Ventolin 0.083% Nebulizer Soln - NEB Q6H PRN SHORT OF BREATH/WHEEZING Apixaban 5 mg 12/15/18 16:15 12/15/18 22:32 Eliquis - PO 5 mg BID [facility] Administration Bisacodyl 10 mg 12/10/18 11:00 12/15/18 12:14 Dulcolax Suppository - RC Not Given DAILY [facility] Chlorhexidine Gluconate 15 ml 12/08/18 11:45 12/15/18 22:58 Peridex - MM Not Given BID [facility] Digoxin 0.125 mg 12/02/18 12:15 12/15/18 10:00 Lanoxin Injection - IVPUSH 0.125 mg DAILY [facility] Administration Docusate Sodium 100 mg 12/14/18 21:30 12/15/18 12:31 Colace - PO Not Given DAILY [facility] Enalaprilat 1.25 mg 12/16/18 09:00 Vasotec Injection - IVPB Q6H-IV [facility] Amino Acids 1,000 mls @ 84 mls/hr 12/12/18 12:00 12/16/18 00:00 Clinimix - IV 84 mls/hr Q12H [facility] Administration Fat Emulsion Intravenous 250 mls @ 20.833 mls/hr 12/12/18 22:00 12/15/18 22: 56 Intralipid - IV 20.833 mls/hr DAILY@2200 [facility] Administration Levofloxacin 750 mg in 150 mls @ 150 mls/hr 12/13/18 10:00 12/15/18 10:00 Levaquin 750 Mg Premixed Ivpb - IVPB 12/20/18 09:59 150 mls/hr DAILY [facility] Administration Protocol Magnesium Sulfate 4 gm in 50 mls @ 16.667 mls/hr 12/16/18 08:30 Magnesium Sulf 4 G/50 Ml Bag IVPB 12/16/18 11:29 ONCE ONE Potassium Chloride 10 meq in 100 mls @ 100 mls/hr 12/16/18 08:30 Potassium Chloride 10 Meq Premix Ivpb - IVPB 12/16/18 11:29 Q60M [facility] Insulin Aspart 1 vial 12/03/18 10:32 12/15/18 22:57 Novolog Vial Sliding Scale - SQ 2 units ACHS [facility] Administration Protocol Insulin Detemir 8 units 12/12/18 10:39 12/15/18 22:56 Levemir Vial SQ 8 units HS [facility] Administration Ipratropium [place] 1 amp 12/10/18 12:00 12/16/18 08:47 Atrovent 0.02% Nebulizer - NEB 1 amp RQID [facility] Administration Methylprednisolone Sodium Succinate 60 mg 12/09/18 12:00 12/15/18 10:40 Solu-Medrol - IVPUSH 60 mg DAILY [facility] Administration Metoprolol Tartrate 5 mg 11/28/18 21:33 12/10/18 16:30 Lopressor Injection - IVPUSH 5 mg Q4H PRN Administration HR >120 Metoprolol Tartrate 25 mg 12/10/18 10:45 12/15/18 22:32 Lopressor - PO 25 mg BID [facility] Administration Morphine Sulfate 2 mg 12/14/18 16:18 Morphine Sulfate IVPUSH Q4H PRN mild SOB Morphine Sulfate 4 mg 12/14/18 16:18 12/15/18 01:59 Morphine Sulfate IVPUSH 4 mg Q4H PRN Administration moderate SOB Morphine Sulfate 6 mg 12/14/18 16:19 Morphine Sulfate IVPUSH Q4H PRN severe SOB Saliva Substitute 1 applic 12/05/18 06:36 12/05/18 07:08 Mouthkote Solution - MM 1 applic Q2H PRN Administration COUGH Senna 8.8 mg 12/09/18 22:00 12/15/18 22:58 Senna Oral Solution - PO 8.8 5ml HS [facility] Administration Laboratory Results - last 24 hr 12/15/18 12/15/18 12/16/18 12:05 12:19 05:30 WBC 7.2 7.6 RBC 4.15 4.54 Hgb 12.8 13.9 Hct 40.1 43.5 MCV 96.7 H 95.9 MCH 30.8 30.7 MCHC 31.9 L 32.0 RDW 14.0 14.7 Plt Count 79 L 97 L D MPV 10.7 10.9 Absolute Neuts (auto) 6.1 5.5 Neutrophils % 85.0 H 72.2 Lymphocytes % 8.1 D 18.1 D Monocytes % 4.2 6.0 Eosinophils % 2.5 3.5 Basophils % 0.2 0.2 Nucleated RBC % 0 0 Sodium 140 Potassium 3.0 L Chloride 102 Carbon Dioxide 33 H Anion Gap 5 L BUN 47 H Creatinine 0.9 Creat Clearance w eGFR > 60 Random Glucose 206 H Calcium 7.6 L Phosphorus Magnesium Total Bilirubin 0.8 AST 49 H ALT 57 Alkaline Phosphatase 162 H Total Protein 5.0 L Albumin 2.2 L 12/16/18 05:30 WBC RBC Hgb Hct MCV MCH MCHC RDW Plt Count MPV Absolute Neuts (auto) Neutrophils % Lymphocytes % Monocytes % Eosinophils % Basophils % Nucleated RBC % Sodium 141 Potassium 3.2 L Chloride 103 Carbon Dioxide 32 Anion Gap 6 L BUN 43 H Creatinine 0.7 Creat Clearance w eGFR > 60 Random Glucose 107 H Calcium 8.0 L Phosphorus 2.5 Magnesium 1.6 L Total Bilirubin 0.6 AST 34 ALT 51 Alkaline Phosphatase 146 H Total Protein 5.2 L Albumin 2.1 L awake , ate breakfast S1 S2 RRR Lungs decreased breath sounds Abd- soft, NT,obese, ND edema + PLAN In ICU - monitor O2 sat PR3+ renal function improving on IV solumedrol pt is DNR/DNI Problem List - Problems (1) Acute on chronic respiratory failure with hypoxia and hypercapnia Code(s): J96.21 - ACUTE AND CHRONIC RESPIRATORY FAILURE WITH HYPOXIA; J96.22 - ACUTE AND CHRONIC RESPIRATORY FAILURE WITH HYPERCAPNIA (2) Acute renal failure Code(s): N17.9 - ACUTE KIDNEY FAILURE, UNSPECIFIED (3) Acute respiratory failure with hypoxia and hypercapnia Code(s): J96.01 - ACUTE RESPIRATORY FAILURE WITH HYPOXIA; J96.02 - ACUTE RESPIRATORY FAILURE WITH HYPERCAPNIA (4) Alcoholism Code(s): F10.20 - ALCOHOL DEPENDENCE, UNCOMPLICATED (5) Atrial flutter Code(s): I48.92 - UNSPECIFIED ATRIAL FLUTTER Qualifiers: Atrial flutter type: unspecified Qualified Code(s): I48.92 - Unspecified atrial flutter (6) Bilateral lower extremity edema Code(s): R60.0 - LOCALIZED EDEMA
[2018-12-16] MEDS: IPRATROPIUM BR 0.02% 0.5 MG/2.5 ML VIAL.NEB. NEB SCH ×4 (08:47→20:00)
[2018-12-16] MEDS: KCL 10 MEQ IVPB 10 MEQ/100 ML INFUS.BAG IVPB SCH ×3 (09:10→10:58)
[2018-12-16] MEDS: APIXABAN 5 MG TABLET PO SCH ×2 (09:37→21:44)
[2018-12-16] MEDS: METOPROLOL TARTRATE 25 MG TABLET (FP) PO SCH ×2 (09:37→21:45)
[2018-12-16] MEDS: DIGOXIN 0.5 MG/2 ML AMPUL IVPUSH SCH (09:38)
[2018-12-16] MEDS: DOCUSATE SODIUM 100 MG CAPSULE (FP) PO SCH (09:38)
[2018-12-16] MEDS: ENALAPRILAT DIHYDRATE 1.25 MG/1 ML VIAL IVPB SCH ×3 (09:38→21:35)
[2018-12-16] MEDS: methylPREDNISolone NA SUCC 40 MG/1 ML VIAL IVPUSH SCH (09:39)
[2018-12-16] MEDS: CHLORHEXIDINE GLUCONATE 0.12% 15ML CUP MM SCH (09:39)
[2018-12-16] MEDS: AMINO ACIDS 4.25%/D5W 1,000 ML IV SCH ×3 (10:06→12:00)
--- NOTE | 2018-12-16 11:56 | PN ---
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, BURSAR - Note 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: On NC. DNR/DNI Hospice was being considered. Seems to be improving. STR? Pt seen bedside, stating "I feel good today." Still producing short sentences intermittently and occasional paraphasic errors.eg "For the salt. It was burning." Good comprehension.Oriented to hospital. Insight somewhat improving. Harsh cough improving.Swallow onset less delayed. Brief cough intermittently with thin liquid. Tolerating Dys puree, nectar thick liquid, Magic cup, Ensure compact Aspiration precautions. Trial sips of thin water BETWEEN meals only. Continue nectar with meals. Pt's Mental Competency at present? Some expressive deficits may adversely affect pt's ability to respond. Consider STR.
--- NOTE | 2018-12-16 14:02 | PN ---
Teaching Attending Note Name of Resident: Kortney Castañeda ATTENDING PHYSICIAN STATEMENT I saw and evaluated the patient. I reviewed the resident's note and discussed the case with the resident. I agree with the resident's findings and plan as documented. SUBJECTIVE: Patient seen and examined in the ICU. More awake and interactive today. Mildly confused. Tolerating NC O2. Denies CP or SOB. No pressors. CXR: rotated / RLL atelectasis / LLL opacification OBJECTIVE: Intake & Output 12/13/18 12/14/18 12/15/18 12/16/18 23:59 23:59 23:59 23:59 Intake Total 1578 2638 2342 1162 Output Total 450 2 2 1 Balance 1128 2636 2340 1161 Weight 244 lb 0.827 oz 247 lb 3.2 oz 236 lb 7 oz Last Vital Signs Temp Pulse Resp BP Pulse Ox 98.6 F 88 22 H 96/66 97 12/16/18 13:44 12/16/18 13:44 12/16/18 13:44 12/16/18 13:44 12/16/18 09:00 Active Medications Albuterol Sulfate (Ventolin 0.083% Nebulizer Soln -) 1 amp NEB Q6H PRN PRN Reason: SHORT OF BREATH/WHEEZING Apixaban (Eliquis -) 5 mg PO BID [facility] Last Admin: 12/16/18 09:37 Dose: 5 mg Bisacodyl (Dulcolax Suppository -) 10 mg RC DAILY [facility] Last Admin: 12/15/18 12:14 Dose: Not Given Chlorhexidine Gluconate (Peridex -) 15 ml MM BID [facility] Last Admin: 12/16/18 09:39 Dose: Not Given Digoxin (Lanoxin Injection -) 0.125 mg IVPUSH DAILY [facility] Last Admin: 12/16/18 09:38 Dose: 0.125 mg Docusate Sodium (Colace -) 100 mg PO DAILY [facility] Last Admin: 12/16/18 09:38 Dose: 100 mg Enalaprilat (Vasotec Injection -) 1.25 mg IVPB Q6H-IV [facility] Last Admin: 12/16/18 09:38 Dose: 1.25 mg Amino Acids (Clinimix -) 1,000 mls @ 84 mls/hr IV Q12H [facility] Last Admin: 12/16/18 10:06 Dose: 84 mls/hr Fat Emulsion Intravenous (Intralipid -) 250 mls @ 20.833 mls/hr IV DAILY@2200 [facility] Last Admin: 12/15/18 22:56 Dose: 20.833 mls/hr Levofloxacin (Levaquin 750 Mg Premixed Ivpb -) 750 mg in 150 mls @ 150 mls/hr IVPB DAILY [facility]; Protocol Stop: 12/20/18 09:59 Last Admin: 12/16/18 09:37 Dose: 150 mls/hr Insulin Aspart (Novolog Vial Sliding Scale -) 1 vial SQ ACHS [facility]; Protocol Last Admin: 12/16/18 11:05 Dose: 8 units Insulin Detemir (Levemir Vial) 8 units SQ [facility] Last Admin: 12/15/18 22:56 Dose: 8 units Ipratropium [place] (Atrovent 0.02% Nebulizer -) 1 amp NEB RQID [facility] Last Admin: 12/16/18 08:47 Dose: 1 amp Methylprednisolone Sodium Succinate (Solu-Medrol -) 60 mg IVPUSH DAILY [facility] Last Admin: 12/16/18 09:39 Dose: 60 mg Metoprolol Tartrate (Lopressor Injection -) 5 mg IVPUSH Q4H PRN PRN Reason: HR >120 Last Admin: 12/10/18 16:30 Dose: 5 mg Metoprolol Tartrate (Lopressor -) 25 mg PO BID [facility] Last Admin: 12/16/18 09:37 Dose: 25 mg Morphine Sulfate (Morphine Sulfate) 2 mg IVPUSH Q4H PRN PRN Reason: mild SOB Morphine Sulfate (Morphine Sulfate) 4 mg IVPUSH Q4H PRN PRN Reason: moderate SOB Last Admin: 12/15/18 01:59 Dose: 4 mg Morphine Sulfate (Morphine Sulfate) 6 mg IVPUSH Q4H PRN PRN Reason: severe SOB Saliva Substitute (Mouthkote Solution -) 1 applic MM Q2H PRN PRN Reason: COUGH Last Admin: 12/05/18 07:08 Dose: 1 applic Senna (Senna Oral Solution -) 8.8 mg PO HS [facility] Last Admin: 12/15/18 22:58 Dose: 8.8 5ml Gen: More awake and interactive Heart: RRR Lung: decreased breath sounds at the bases Abd: softly distended, less ascites Ext: trace edema Laboratory Results - last 24 hr 12/12/18 12/14/18 12/15/18 05:30 22:25 05:34 WBC RBC Hgb Hct MCV MCH MCHC RDW Plt Count MPV Absolute Neuts (auto) Neutrophils % Lymphocytes % Monocytes % Eosinophils % Basophils % Nucleated RBC % Sodium Potassium Chloride Carbon Dioxide Anion Gap BUN Creatinine Creat Clearance w eGFR POC Glucometer 199.27463 125.04729 Random Glucose Calcium Phosphorus Magnesium Total Bilirubin AST ALT Alkaline Phosphatase Total Protein Albumin Digoxin S.cerevisiae IgG Ab 36.1 H S. cerevisiae IgG/IgA 135.1 H 12/15/18 12/15/18 12/15/18 12:30 17:07 22:43 WBC RBC Hgb Hct MCV MCH MCHC RDW Plt Count MPV Absolute Neuts (auto) Neutrophils % Lymphocytes % Monocytes % Eosinophils % Basophils % Nucleated RBC % Sodium Potassium Chloride Carbon Dioxide Anion Gap BUN Creatinine Creat Clearance w eGFR POC Glucometer 202.97005 201.29650 130.22383 Random Glucose Calcium Phosphorus Magnesium Total Bilirubin AST ALT Alkaline Phosphatase Total Protein Albumin Digoxin S.cerevisiae IgG Ab S. cerevisiae IgG/IgA 12/16/18 12/16/18 12/16/18 05:30 05:30 06:23 WBC 7.6 RBC 4.54 Hgb 13.9 Hct 43.5 MCV 95.9 MCH 30.7 MCHC 32.0 RDW 14.7 Plt Count 97 L D MPV 10.9 Absolute Neuts (auto) 5.5 Neutrophils % 72.2 Lymphocytes % 18.1 D Monocytes % 6.0 Eosinophils % 3.5 Basophils % 0.2 Nucleated RBC % 0 Sodium 141 Potassium 3.2 L Chloride 103 Carbon Dioxide 32 Anion Gap 6 L BUN 43 H Creatinine 0.7 Creat Clearance w eGFR > 60 POC Glucometer 118.76103 Random Glucose 107 H Calcium 8.0 L Phosphorus 2.5 Magnesium 1.6 L Total Bilirubin 0.6 AST 34 ALT 51 Alkaline Phosphatase 146 H Total Protein 5.2 L Albumin 2.1 L Digoxin 0.79 L S.cerevisiae IgG Ab S. cerevisiae IgG/IgA 12/16/18 11:04 WBC RBC Hgb Hct MCV MCH MCHC RDW Plt Count MPV Absolute Neuts (auto) Neutrophils % Lymphocytes % Monocytes % Eosinophils % Basophils % Nucleated RBC % Sodium Potassium Chloride Carbon Dioxide Anion Gap BUN Creatinine Creat Clearance w eGFR POC Glucometer 252.12478 Random Glucose Calcium Phosphorus Magnesium Total Bilirubin AST ALT Alkaline Phosphatase Total Protein Albumin Digoxin S.cerevisiae IgG Ab S. cerevisiae IgG/IgA ASSESSMENT AND PLAN: Acute on Chronic Hypoxic and Hypercapneic Respiratory Failure improving Acute COPD Exacerbation Morbid Obesity Obstructive Sleep Apnea/Obesity Hypoventilation Syndrome Suspect Right Heart Failure Volume Overload Mediastinal Lymphadenopathy Atrial Fibrillation with RVR Cellulitis treated Acute Kidney Injury Alcohol Abuse - rate control - continue anticoagulation - Medrol: would D/W Rheumatology further regimen - inhaled bronchodilators PRN - Daily Lasix - completed antibiotics - monitor urine output, creatinine - NC O2 as tolerated and NIPPV as needed to assist in work of breathing - DVT/GI prophylaxis - Noted that the patient was made DNR/DNI and family has requested no escalation of therapy - 4W / 4S monitoring Dr Dixon
[2018-12-16] MEDS ORDERED: PT OWN MED DRAWER 7, Y5N ONE (14:39)
--- NOTE | 2018-12-16 15:08 | PN ---
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, Physician History of Present Illness: Pt seen and examined at bedside. She remains in the ICU. She remains confused. - Current Medication List Current Medications: Active Medications Albuterol Sulfate (Ventolin 0.083% Nebulizer Soln -) 1 amp NEB Q6H PRN PRN Reason: SHORT OF BREATH/WHEEZING Apixaban (Eliquis -) 5 mg PO BID [facility] Last Admin: 12/16/18 09:37 Dose: 5 mg Bisacodyl (Dulcolax Suppository -) 10 mg RC DAILY [facility] Last Admin: 12/15/18 12:14 Dose: Not Given Chlorhexidine Gluconate (Peridex -) 15 ml MM BID [facility] Last Admin: 12/16/18 09:39 Dose: Not Given Digoxin (Lanoxin Injection -) 0.125 mg IVPUSH DAILY [facility] Last Admin: 12/16/18 09:38 Dose: 0.125 mg Docusate Sodium (Colace -) 100 mg PO DAILY [facility] Last Admin: 12/16/18 09:38 Dose: 100 mg Enalaprilat (Vasotec Injection -) 1.25 mg IVPB Q6H-IV [facility] Last Admin: 12/16/18 14:37 Dose: Not Given Amino Acids (Clinimix -) 1,000 mls @ 84 mls/hr IV Q12H [facility] Last Admin: 12/16/18 10:06 Dose: 84 mls/hr Fat Emulsion Intravenous (Intralipid -) 250 mls @ 20.833 mls/hr IV DAILY@2200 [facility] Last Admin: 12/15/18 22:56 Dose: 20.833 mls/hr Levofloxacin (Levaquin 750 Mg Premixed Ivpb -) 750 mg in 150 mls @ 150 mls/hr IVPB DAILY [facility]; Protocol Stop: 12/20/18 09:59 Last Admin: 12/16/18 09:37 Dose: 150 mls/hr Insulin Aspart (Novolog Vial Sliding Scale -) 1 vial SQ ACHS [facility]; Protocol Last Admin: 12/16/18 11:05 Dose: 8 units Insulin Detemir (Levemir Vial) 8 units SQ HS [facility] Last Admin: 12/15/18 22:56 Dose: 8 units Ipratropium [place] (Atrovent 0.02% Nebulizer -) 1 amp NEB RQID [facility] Last Admin: 12/16/18 12:14 Dose: 1 amp Methylprednisolone Sodium Succinate (Solu-Medrol -) 60 mg IVPUSH DAILY [facility] Last Admin: 12/16/18 09:39 Dose: 60 mg Metoprolol Tartrate (Lopressor Injection -) 5 mg IVPUSH Q4H PRN PRN Reason: HR >120 Last Admin: 12/10/18 16:30 Dose: 5 mg Metoprolol Tartrate (Lopressor -) 25 mg PO BID [facility] Last Admin: 12/16/18 09:37 Dose: 25 mg Morphine Sulfate (Morphine Sulfate) 2 mg IVPUSH Q4H PRN PRN Reason: mild SOB Morphine Sulfate (Morphine Sulfate) 4 mg IVPUSH Q4H PRN PRN Reason: moderate SOB Last Admin: 12/15/18 01:59 Dose: 4 mg Morphine Sulfate (Morphine Sulfate) 6 mg IVPUSH Q4H PRN PRN Reason: severe SOB Saliva Substitute (Mouthkote Solution -) 1 applic MM Q2H PRN PRN Reason: COUGH Last Admin: 12/05/18 07:08 Dose: 1 applic Senna (Senna Oral Solution -) 8.8 mg PO HS [facility] Last Admin: 12/15/18 22:58 Dose: 8.8 5ml - Objective Vital Signs: Vital Signs Temperature 98.6 F 12/16/18 13:44 Pulse Rate 88 12/16/18 13:44 Respiratory Rate 22 H 12/16/18 13:44 Blood Pressure 96/66 12/16/18 13:44 O2 Sat by Pulse Oximetry (%) 94 L 12/16/18 12:20 Constitutional: Yes: Calm Eyes: Yes: Conjunctiva Clear HENT: Yes: Atraumatic Cardiovascular: Yes: S1, S2 Respiratory: Yes: On Venti-Mask Gastrointestinal: Yes: Soft, Abdomen, Obese Genitourinary: Yes: Incontinence Musculoskeletal: Yes: Muscle Weakness Edema: Yes Edema: LLE: Trace, RLE: Trace Neurological: Yes: Confusion Labs: CBC, BMP 12/16/18 05:30 12/16/18 05:30 INR, PTT INR 1.13 (0.83-1.09) H 11/23/18 16:40 Problem List - Problems (1) Hyperkalemia Code(s): E87.5 - HYPERKALEMIA (2) Acute on chronic respiratory failure with hypoxia and hypercapnia Code(s): J96.21 - ACUTE AND CHRONIC RESPIRATORY FAILURE WITH HYPOXIA; J96.22 - ACUTE AND CHRONIC RESPIRATORY FAILURE WITH HYPERCAPNIA (3) Acute renal failure Code(s): N17.9 - ACUTE KIDNEY FAILURE, UNSPECIFIED (4) Alcoholism Code(s): F10.20 - ALCOHOL DEPENDENCE, UNCOMPLICATED (5) Atrial flutter Code(s): I48.92 - UNSPECIFIED ATRIAL FLUTTER Qualifiers: Atrial flutter type: unspecified Qualified Code(s): I48.92 - Unspecified atrial flutter (6) Bilateral lower extremity edema Code(s): R60.0 - LOCALIZED EDEMA (7) COPD exacerbation Code(s): J44.1 - CHRONIC OBSTRUCTIVE PULMONARY DISEASE W (ACUTE) EXACERBATION Assessment/Plan Current Medications Generic Name Dose Route Start Last Admin Trade Name Freq PRN Reason Stop Dose Admin Albuterol Sulfate 1 amp 12/10/18 10:43 Ventolin 0.083% Nebulizer Soln - NEB Q6H PRN SHORT OF BREATH/WHEEZING Apixaban 5 mg 12/15/18 16:15 12/16/18 09:37 Eliquis - PO 5 mg BID [facility] Administration Bisacodyl 10 mg 12/10/18 11:00 12/15/18 12:14 Dulcolax Suppository - RC Not Given DAILY [facility] Chlorhexidine Gluconate 15 ml 12/08/18 11:45 12/16/18 09:39 Peridex - MM Not Given BID [facility] Digoxin 0.125 mg 12/02/18 12:15 12/16/18 09:38 Lanoxin Injection - IVPUSH 0.125 mg DAILY [facility] Administration Docusate Sodium 100 mg 12/14/18 21:30 12/16/18 09:38 Colace - PO 100 mg DAILY [facility] Administration Enalaprilat 1.25 mg 12/16/18 09:00 12/16/18 14:37 Vasotec Injection - IVPB Not Given Q6H-IV [facility] Amino Acids 1,000 mls @ 84 mls/hr 12/12/18 12:00 12/16/18 10:06 Clinimix - IV 84 mls/hr Q12H [facility] Administration Fat Emulsion Intravenous 250 mls @ 20.833 mls/hr 12/12/18 22:00 12/15/18 22: 56 Intralipid - IV 20.833 mls/hr DAILY@2200 [facility] Administration Levofloxacin 750 mg in 150 mls @ 150 mls/hr 12/13/18 10:00 12/16/18 09:37 Levaquin 750 Mg Premixed Ivpb - IVPB 12/20/18 09:59 150 mls/hr DAILY [facility] Administration Protocol Insulin Aspart 1 vial 12/03/18 10:32 12/16/18 11:05 Novolog Vial Sliding Scale - SQ 8 units ACHS [facility] Administration Protocol Insulin Detemir 8 units 12/12/18 10:39 12/15/18 22:56 Levemir Vial SQ 8 units HS [facility] Administration Ipratropium [place] 1 amp 12/10/18 12:00 12/16/18 12:14 Atrovent 0.02% Nebulizer - NEB 1 amp RQID [facility] Administration Methylprednisolone Sodium Succinate 60 mg 12/09/18 12:00 12/16/18 09:39 Solu-Medrol - IVPUSH 60 mg DAILY [facility] Administration Metoprolol Tartrate 5 mg 11/28/18 21:33 12/10/18 16:30 Lopressor Injection - IVPUSH 5 mg Q4H PRN Administration HR >120 Metoprolol Tartrate 25 mg 12/10/18 10:45 12/16/18 09:37 Lopressor - PO 25 mg BID [facility] Administration Morphine Sulfate 2 mg 12/14/18 16:18 Morphine Sulfate IVPUSH Q4H PRN mild SOB Morphine Sulfate 4 mg 12/14/18 16:18 12/15/18 01:59 Morphine Sulfate IVPUSH 4 mg Q4H PRN Administration moderate SOB Morphine Sulfate 6 mg 12/14/18 16:19 Morphine Sulfate IVPUSH Q4H PRN severe SOB Saliva Substitute 1 applic 12/05/18 06:36 12/05/18 07:08 Mouthkote Solution - MM 1 applic Q2H PRN Administration COUGH Senna 8.8 mg 12/09/18 22:00 12/15/18 22:58 Senna Oral Solution - PO 8.8 5ml HS [facility] Administration Impression 1. PITO 2. hyperkalemia 3. a-flutter 4. resp failure requiring bipap 5. DM 6. HTN 7. active smoker 8. etoh abuse 9. obesity 10. interstitial lung disease on CT scan 11. resp acidosis 12. COPD 13. positive pr3 14. hypernatremia Plan - renal function stabilizing - follow repeat UA - monitor renal function - recall rheumatology - will need tissue biopsy once stable - replace lytes - pt has been off of aspirin - asa on hold
[2018-12-16] MEDS ORDERED: POTASSIUM CHLORIDE TABS 20 MEQ TABLET.ER (FP) PO ONE (15:35)
[2018-12-16] MEDS: BISACODYL 10 MG SUPP.RECT RC SCH (17:32)
--- NOTE | 2018-12-16 17:48 | PN ---
Physical Exam: SUBJECTIVE: Patient seen and examined this morning at bedside. No new complaints. No acute overnight events as per nursing. Denies any fevers, chills , chest pain, SOB, nausea, vomiting, diarrhea, constipation. OBJECTIVE: Vital Signs Period Temp Pulse Resp BP Sys/Gregorio Pulse Ox Last 24 Hr 98.2 F-98.6 F 53-104 15-25 96-133/65-90 94-100 GENERAL: A&Ox2, NAD lying with HOB elevated HEAD: NCAT EYES: PERRL, EOMI ENT: Oropharynx clear without exudates, moist mucous membranes. NECK: Trachea midline, full range of motion, supple. LUNGS: Diminished breath sounds at the bases, no wheezes HEART: Regular rate and rhythm, S1, S2 without murmur ABDOMEN: Soft, nontender, nondistended, + bowel sounds, no guarding EXTREMITIES: 2+ pulses, Trace edema. NEUROLOGICAL: Cranial nerves II through XII grossly intact. Normal speech SKIN: Warm, dry Laboratory Results - last 24 hr 12/12/18 12/14/18 12/15/18 05:30 22:25 05:34 WBC RBC Hgb Hct MCV MCH MCHC RDW Plt Count MPV Absolute Neuts (auto) Neutrophils % Lymphocytes % Monocytes % Eosinophils % Basophils % Nucleated RBC % Sodium Potassium Chloride Carbon Dioxide Anion Gap BUN Creatinine Creat Clearance w eGFR POC Glucometer 199.10506 [phone] Random Glucose Calcium Phosphorus Magnesium Total Bilirubin AST ALT Alkaline Phosphatase Total Protein Albumin Digoxin S.cerevisiae IgG Ab 36.1 H S. cerevisiae IgG/IgA 135.1 H 12/16/18 12/16/18 12/16/18 05:30 05:30 06:23 WBC 7.6 RBC 4.54 Hgb 13.9 Hct 43.5 MCV 95.9 MCH 30.7 MCHC 32.0 RDW 14.7 Plt Count 97 L D MPV 10.9 Absolute Neuts (auto) 5.5 Neutrophils % 72.2 Lymphocytes % 18.1 D Monocytes % 6.0 Eosinophils % 3.5 Basophils % 0.2 Nucleated RBC % 0 Sodium 141 Potassium 3.2 L Chloride 103 Carbon Dioxide 32 Anion Gap 6 L BUN 43 H Creatinine 0.7 Creat Clearance w eGFR > 60 POC Glucometer 118.93635 Random Glucose 107 H Calcium 8.0 L Phosphorus 2.5 Magnesium 1.6 L Total Bilirubin 0.6 AST 34 ALT 51 Alkaline Phosphatase 146 H Total Protein 5.2 L Albumin 2.1 L Digoxin 0.79 L S.cerevisiae IgG Ab S. cerevisiae IgG/IgA Microbiology 12/11/18 15:30 Urine - Urine - Catheterized Urine Culture - Final NO GROWTH OBTAINED 11/24/18 04:00 Blood - Peripheral Venous Blood Culture - Final NO GROWTH AFTER 5 DAYS INCUBATION 11/24/18 04:00 Blood - Peripheral Venous Blood Culture - Final NO GROWTH AFTER 5 DAYS INCUBATION 11/24/18 12:50 Urine - Urine Clean Catch Urine Culture - Final NO GROWTH OBTAINED 11/24/18 12:25 Urine For Antigen Detection Legionella Antigen - Final 11/24/18 12:25 Urine For Antigen Detection Streptococcus pneumoniae Antigen (M - Final Active Medications Albuterol Sulfate (Ventolin 0.083% Nebulizer Soln -) 1 amp NEB Q6H PRN PRN Reason: SHORT OF BREATH/WHEEZING Apixaban (Eliquis -) 5 mg PO BID [facility] Last Admin: 12/16/18 09:37 Dose: 5 mg Bisacodyl (Dulcolax Suppository -) 10 mg RC DAILY [facility] Last Admin: 12/15/18 12:14 Dose: Not Given Chlorhexidine Gluconate (Peridex -) 15 ml MM BID [facility] Last Admin: 12/16/18 09:39 Dose: Not Given Digoxin (Lanoxin Injection -) 0.125 mg IVPUSH DAILY [facility] Last Admin: 12/16/18 09:38 Dose: 0.125 mg Docusate Sodium (Colace -) 100 mg PO DAILY [facility] Last Admin: 12/16/18 09:38 Dose: 100 mg Enalaprilat (Vasotec Injection -) 1.25 mg IVPB Q6H-IV [facility] Last Admin: 12/16/18 14:37 Dose: Not Given Amino Acids (Clinimix -) 1,000 mls @ 84 mls/hr IV Q12H [facility] Last Admin: 12/16/18 12:00 Dose: Not Given Fat Emulsion Intravenous (Intralipid -) 250 mls @ 20.833 mls/hr IV DAILY@2200 [facility] Last Admin: 12/15/18 22:56 Dose: 20.833 mls/hr Levofloxacin (Levaquin 750 Mg Premixed Ivpb -) 750 mg in 150 mls @ 150 mls/hr IVPB DAILY [facility]; Protocol Stop: 12/20/18 09:59 Last Admin: 12/16/18 09:37 Dose: 150 mls/hr Insulin Aspart (Novolog Vial Sliding Scale -) 1 vial SQ ACHS [facility]; Protocol Last Admin: 12/16/18 16:18 Dose: 8 units Insulin Detemir (Levemir Vial) 8 units SQ HS [facility] Last Admin: 12/15/18 22:56 Dose: 8 units Ipratropium [place] (Atrovent 0.02% Nebulizer -) 1 amp NEB RQID [facility] Last Admin: 12/16/18 15:57 Dose: 1 amp Methylprednisolone Sodium Succinate (Solu-Medrol -) 60 mg IVPUSH DAILY [facility] Last Admin: 12/16/18 09:39 Dose: 60 mg Metoprolol Tartrate (Lopressor Injection -) 5 mg IVPUSH Q4H PRN PRN Reason: HR >120 Last Admin: 12/10/18 16:30 Dose: 5 mg Metoprolol Tartrate (Lopressor -) 25 mg PO BID [facility] Last Admin: 12/16/18 09:37 Dose: 25 mg Morphine Sulfate (Morphine Sulfate) 2 mg IVPUSH Q4H PRN PRN Reason: mild SOB Morphine Sulfate (Morphine Sulfate) 4 mg IVPUSH Q4H PRN PRN Reason: moderate SOB Last Admin: 12/15/18 01:59 Dose: 4 mg Morphine Sulfate (Morphine Sulfate) 6 mg IVPUSH Q4H PRN PRN Reason: severe SOB Saliva Substitute ([place] Solution -) 1 applic MM Q2H PRN PRN Reason: COUGH Last Admin: 12/05/18 07:08 Dose: 1 applic Senna (Senna Oral Solution -) 8.8 mg PO [facility] Last Admin: 12/15/18 22:58 Dose: 8.8 5ml ASSESSMENT/PLAN: 53 y/o F with PMHx of COPD, EtOH abuse, Tobacco Dependence, TRINH, morbid obesity , DM, HTN, HLD was transferred to ICU due to worsening respiratory failure #Pulmonary Acute hypercapnic respiratory failure -Due to pulmonary edema; COPD VS CHF exacerbation -CXR (12/16): There is a large heart, prominent hafsa and some atelectatic changes at the right base. There may be an infiltrate and/or atelectasis at the left base. Interstitial lung disease is not appreciated. -Continue Ipratropium QID, Albuterol Q6H PRN -Continue Methylprednisolone 60mg IV Daily ILD -CTA (11/24): Interstitial lung disease with mediastinal and hilar lymphadenopathy. The possibility of sarcoidosis cannot be excluded -Continue Methylprednisolone 60mg IV Daily #Cardio Atrial Flutter -EKG (12/14): ATRIAL FIBRILLATION, LEFT POSTERIOR FASCICULAR BLOCK, VR 79, QTc 421 -Cardiology (Dr Jefferson) consulted, appreciate Rec's -Continue Digoxin 0.125mg, Metoprolol tartrate 25mg PO BID, Metroprolol tartrate IV 5mg PRN -Continue Eliquis 5mg PO BID CHF -BNP: 2700 -ECHO (11/28): Regional WMA cannot be excluded, Cannot assess LVEF. Mild MR, Mild TR -Not fluid overloaded currently, Will continue to monitor, Daily weights, I&Os HTN -Continue Metoprolol, Vasotec 1.25mg IV Q6H HLD -Started on Rosuvastatin 40mg HS #Neuro -Continue pain control -Continue to monitor #GI -Speech and swallow consulted, appreciate rec's -Continue thiamine, Clinimix, Intralipid -Bowel regimen via Colace, Miralax, senna #Renal PITO -Resolved, Cr 0.7 this am -Nephrology (Dr. Blackburn) Consulted, Appreciate rec's -Continue to monitor #Endo DM -ISS BGM ACHS -Levemir 8 units HS #ID -ID (Dr. Garza) consulted, Appreciate Rec's -Completed course of ABx -Continue to monitor for signs of infection #FEN -PO Fluids -Replete Potassium and Mag -Dysphagia Puree, Magic cup, Ensure #PPx -DVT: Eliquis 5mg BID -GI: Protonix Code status: DNR/DNI Dispo: Continues to monitor in ICU Visit type - Emergency Visit Emergency Visit: Yes ED Registration Date: 11/23/18 Care time: The patient presented to the Emergency Department on the above date and was hospitalized for further evaluation of their emergent condition. - New Patient This patient is new to me today: Yes Date on this admission: 12/16/18 - Critical Care Critical Care patient: Yes Total Critical Care Time (in minutes): 40 Critical Care Statement: The care of this patient involved high complexity decision making to prevent further life threatening deterioration of the patient 's condition and/or to evaluate & treat vital organ system(s) failure or risk of failure.
[2018-12-16 18:02] LABS: URINE APPEARANCE CLEAR; URINE BILIRUBIN NEGATIVE (<2.0 mg/dL); URINE COLOR YELLOW; URINE GLUCOSE (UA) 1+ (NEGATIVE); URINE KETONE NEGATIVE (NEGATIVE); URINE LEUK ESTERASE TRACE (NEGATIVE); URINE NITRITE NEGATIVE (NEGATIVE); URINE PROTEIN NEGATIVE (NEGATIVE); URINE UROBILINOGEN 4.0 E.U/dl mg/dL (0.2-1.0)
--- NOTE | 2018-12-16 18:08 | CON.PSY ---
Psychiatry Consult Chief Complaint: 53 year old fema;le with severe COPD, intubated and extubated three days ago. Patient seen for Psych eval for Competency?? to appoint a gusrdian?/ Symptoms: reports: Memory Impairment, Anxiety - Previous Psychiatric Treatment Outpatient: None Inpatient: None - Previous Substance Abuse Treatment Outpatient: None Inpatient: None - Current Medications Current Medications: Active Medications Albuterol Sulfate (Ventolin 0.083% Nebulizer Soln -) 1 amp NEB Q6H PRN PRN Reason: SHORT OF BREATH/WHEEZING Apixaban (Eliquis -) 5 mg PO BID [facility] Last Admin: 12/16/18 09:37 Dose: 5 mg Digoxin (Lanoxin Injection -) 0.125 mg IVPUSH DAILY [facility] Last Admin: 12/16/18 09:38 Dose: 0.125 mg Docusate Sodium (Colace -) 100 mg PO DAILY [facility] Last Admin: 12/16/18 09:38 Dose: 100 mg Enalaprilat (Vasotec Injection -) 1.25 mg IVPB Q6H-IV [facility] Last Admin: 12/16/18 14:37 Dose: Not Given Amino Acids (Clinimix -) 1,000 mls @ 84 mls/hr IV Q12H [facility] Last Admin: 12/16/18 12:00 Dose: Not Given Fat Emulsion Intravenous (Intralipid -) 250 mls @ 20.833 mls/hr IV DAILY@2200 [facility] Last Admin: 12/15/18 22:56 Dose: 20.833 mls/hr Levofloxacin (Levaquin 750 Mg Premixed Ivpb -) 750 mg in 150 mls @ 150 mls/hr IVPB DAILY [facility]; Protocol Stop: 12/20/18 09:59 Last Admin: 12/16/18 09:37 Dose: 150 mls/hr Insulin Aspart (Novolog Vial Sliding Scale -) 1 vial SQ ACHS [facility]; Protocol Last Admin: 12/16/18 16:18 Dose: 8 units Insulin Detemir (Levemir Vial) 8 units SQ HS [facility] Last Admin: 12/15/18 22:56 Dose: 8 units Ipratropium [place] (Atrovent 0.02% Nebulizer -) 1 amp NEB RQID [facility] Last Admin: 12/16/18 15:57 Dose: 1 amp Methylprednisolone Sodium Succinate (Solu-Medrol -) 60 mg IVPUSH DAILY [facility] Last Admin: 12/16/18 09:39 Dose: 60 mg Metoprolol Tartrate (Lopressor Injection -) 5 mg IVPUSH Q4H PRN PRN Reason: HR >120 Last Admin: 12/10/18 16:30 Dose: 5 mg Metoprolol Tartrate (Lopressor -) 25 mg PO BID [facility] Last Admin: 12/16/18 09:37 Dose: 25 mg Morphine Sulfate (Morphine Sulfate) 2 mg IVPUSH Q4H PRN PRN Reason: mild SOB Morphine Sulfate (Morphine Sulfate) 4 mg IVPUSH Q4H PRN PRN Reason: moderate SOB Last Admin: 12/15/18 01:59 Dose: 4 mg Morphine Sulfate (Morphine Sulfate) 6 mg IVPUSH Q4H PRN PRN Reason: severe SOB Polyethylene Glycol (Miralax (For Daily Use) -) 17 gm PO BID [facility] Rosuvastatin Calcium (Crestor -) 40 mg PO HS [facility] Saliva Substitute (Mouthkote Solution -) 1 applic MM Q2H PRN PRN Reason: COUGH Last Admin: 12/05/18 07:08 Dose: 1 applic Senna (Senna Oral Solution -) 8.8 mg PO HS [facility] Last Admin: 12/15/18 22:58 Dose: 8.8 5ml - Allergies Allergies: Allergies Allergy/AdvReac Type Severity Reaction Status Date / Time No Known Allergies Allergy Verified 11/23/18 16:10 - Current Living Status Usual Living Arrangement: With Significant Other - Current Mental Status Evaluation Appearance: Disheveled Attitude: Guarded - Affect Affect: Constrictive Appropriateness: Not Appropriate - Mood Mood: Anxious - Speech/Language Expressive: Delayed - Psychomotor Activity Psychomotor Activity: Slowed - Thought Process Thought Process: Circumstantial - Thought Content Hallucinations: Absent Delusions: Absent - Self Perception Self Perception: No Impairment - Cognition Attention: Alert Memory, Short Term: 1/3 Memory, Remote with Promptin/3 - Concentration Serial Sevens Intact: No Simple Calculations Intact: No - Abstraction Proverb Interpretation: Impaired Judgement: Minimally Impaired - Insight Insight: Intact - Impulse Control Impulse Control: Minimally Impaired - Suicidal Ideation Suicidal Ideation: No - Homicidal Ideation Homicidal Ideation: No Problem List - Problems (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
[2018-12-16 18:16] LABS: EPI CELLS RARE /HPF (FEW); URINE BACTERIA RARE /hpf (NONE SEEN)
[2018-12-16] MEDS: ROSUVASTATIN CA 20 MG TABLET (FP) PO SCH (21:44)
[2018-12-16] MEDS: INSULIN (LEVEMIR) 100 UNITS/ML UNITS SQ SCH (21:45)
[2018-12-16] MEDS: POLYETHYLENE GLYCOL 3350 119 GM BTL PO SCH (21:46)
[2018-12-16] MEDS: FAT EMULSIONS 250 ML IV SCH (21:46)
[2018-12-16] MEDS: SENNOSIDES 8.8 MG/5 ML BULK BOTTLE PO SCH (21:50)
[2018-12-17] MEDS: AMINO ACIDS 4.25%/D5W 1,000 ML IV SCH
[2018-12-17] MEDS: ENALAPRILAT DIHYDRATE 1.25 MG/1 ML VIAL IVPB SCH ×2 (03:34→09:25)
[2018-12-17 06:29] LABS: BASO % 0.4 % (0-2.0); EOS % 2.5 % (0-4.5); HEMATOCRIT 42.2 % (32.4-45.2); HEMOGLOBIN 14.5 GM/dL (10.7-15.3); LYMPH % 15.1 % (8-40); MCH 32.7 pg (25.7-33.7); MCHC 34.4 g/dl (32.0-36.0); MEAN CELL VOLUME 95.1 fl (80-96); MEAN PLT VOLUME 10.6 fl (7.5-11.1); MONO % 6.6 % (3.8-10.2); NEUT % 75.4 % (42.8-82.8); PLATELET COUNT 98 K/MM3 (134-434); RBC 4.44 M/mm3 (3.60-5.2); RDW 14.5 % (11.6-15.6); WHITE BLOOD COUNT 7.9 K/mm3 (4.0-10.0)
[2018-12-17] MEDS: INSULIN SLIDING SCALE (NOVOLOG) 1 VIAL SQ SCH ×5 (06:46→21:20)
[2018-12-17 07:08] LABS: ALBUMIN 2.1 g/dl (3.4-5.0); ALK PHOS 129 U/L (45-117); ANION GAP 5 MMOL/L (8-16); BILIRUBIN,TOTAL 0.5 mg/dL (0.2-1); BLOOD UREA NITROGEN 40 mg/dL (7-18); CALCIUM 8.1 mg/dL (8.5-10.1); CHLORIDE 104 mmol/L (98-107); CO2 30 mmol/L (21-32); CREATININE 0.8 mg/dL (0.55-1.3); GLUCOSE,RANDOM 154 mg/dL (74-106); MAGNESIUM 2.5 mg/dL (1.8-2.4); PHOSPHOROUS 2.4 mg/dL (2.5-4.9); POTASSIUM 4.1 mmol/L (3.5-5.1); SGOT/AST 30 U/L (15-37); SGPT/ALT 45 U/L (13-61); SODIUM 139 mmol/L (136-145)
[2018-12-17] MEDS: IPRATROPIUM BR 0.02% 0.5 MG/2.5 ML VIAL.NEB. NEB SCH ×4 (08:10→20:45)
[2018-12-17] MEDS ORDERED: SODIUM PHOSPHATE - 30 MM in SODIUM CHLORIDE 250 ML IVPB ONE (09:23)
[2018-12-17] MEDS: APIXABAN 5 MG TABLET PO SCH ×2 (09:25→21:21)
[2018-12-17] MEDS: METOPROLOL TARTRATE 25 MG TABLET (FP) PO SCH ×2 (09:25→21:21)
[2018-12-17] MEDS: DOCUSATE SODIUM 100 MG CAPSULE (FP) PO SCH (09:25)
[2018-12-17] MEDS: methylPREDNISolone NA SUCC 40 MG/1 ML VIAL IVPUSH SCH (09:26)
[2018-12-17] MEDS: DIGOXIN 0.5 MG/2 ML AMPUL IVPUSH SCH (09:27)
[2018-12-17] MEDS ORDERED: ACETAMINOPHEN 325 MG TABLET (FP) PO ONE (09:29)
[2018-12-17] MEDS: POLYETHYLENE GLYCOL 3350 119 GM BTL PO SCH ×2 (10:05→21:21)
--- NOTE | 2018-12-17 10:27 | PN ---
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 (short form) - Note 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: awake and alert no pain , distress Vital Signs - 24 hr 12/16/18 12/16/18 12/16/18 12:00 12:20 13:44 Temperature 98.6 F Pulse Rate 86 76 88 Respiratory 20 22 H Rate Blood Pressure 118/81 96/66 O2 Sat by Pulse 94 L Oximetry (%) 12/16/18 12/16/18 12/16/18 15:00 15:56 17:00 Temperature 98.1 F Pulse Rate 84 77 83 Respiratory 21 H 16 Rate Blood Pressure 116/84 106/62 O2 Sat by Pulse 98 Oximetry (%) 12/16/18 12/16/18 12/16/18 18:24 20:00 21:00 Temperature 98.5 F Pulse Rate 68 79 71 Respiratory 21 H 19 Rate Blood Pressure 108/81 96/68 O2 Sat by Pulse 94 L 95 Oximetry (%) 12/16/18 12/16/18 12/17/18 22:00 23:00 00:00 Temperature 98.9 F Pulse Rate 76 89 76 Respiratory 16 16 17 Rate Blood Pressure 117/89 124/90 118/85 O2 Sat by Pulse 96 Oximetry (%) 12/17/18 12/17/18 12/17/18 02:00 04:00 06:00 Temperature 98.7 F 98.4 F Pulse Rate 73 94 H 85 Respiratory 15 18 16 Rate Blood Pressure 108/74 127/82 126/89 O2 Sat by Pulse Oximetry (%) 12/17/18 12/17/18 12/17/18 08:00 09:00 09:27 Temperature Pulse Rate 86 118 H 119 H Respiratory 16 18 Rate Blood Pressure 126/69 126/69 O2 Sat by Pulse 93 L Oximetry (%) 12/17/18 09:45 Temperature Pulse Rate Respiratory Rate Blood Pressure O2 Sat by Pulse 93 L Oximetry (%) Current Medications Generic Name Dose Route Start Last Admin Trade Name Freq PRN Reason Stop Dose Admin Albuterol Sulfate 1 amp 12/10/18 10:43 Ventolin 0.083% Nebulizer Soln - NEB Q6H PRN SHORT OF BREATH/WHEEZING Apixaban 5 mg 12/15/18 16:15 12/17/18 09:25 Eliquis - PO 5 mg BID [facility] Administration Digoxin 0.125 mg 12/02/18 12:15 12/17/18 09:27 Lanoxin Injection - IVPUSH 0.125 mg DAILY [facility] Administration Docusate Sodium 100 mg 12/14/18 21:30 12/17/18 09:25 Colace - PO 100 mg DAILY [facility] Administration Enalaprilat 1.25 mg 12/16/18 09:00 12/17/18 09:25 Vasotec Injection - IVPB 1.25 mg Q6H-IV [facility] Administration Amino Acids 1,000 mls @ 84 mls/hr 12/12/18 12:00 12/17/18 00:00 Clinimix - IV 84 mls/hr Q12H [facility] Administration Fat Emulsion Intravenous 250 mls @ 20.833 mls/hr 12/12/18 22:00 12/16/18 21: 46 Intralipid - IV 20.833 mls/hr DAILY@2200 [facility] Administration Levofloxacin 750 mg in 150 mls @ 150 mls/hr 12/13/18 10:00 12/17/18 09:26 Levaquin 750 Mg Premixed Ivpb - IVPB 12/20/18 09:59 150 mls/hr DAILY [facility] Administration Protocol Sodium Phosphate 30 mm/ Sodium 260 mls @ 62.5 mls/hr 12/17/18 09:23 Chloride IVPB 12/17/18 13:32 ONCE ONE Insulin Aspart 1 vial 12/03/18 10:32 12/17/18 06:46 Novolog Vial Sliding Scale - SQ Not Given ACHS [facility] Protocol Insulin Detemir 8 units 12/12/18 10:39 12/16/18 21:45 Levemir Vial SQ 8 units HS [facility] Administration Ipratropium [place] 1 amp 12/10/18 12:00 12/16/18 20:00 Atrovent 0.02% Nebulizer - NEB 1 amp RQID [facility] Administration Methylprednisolone Sodium Succinate 60 mg 12/09/18 12:00 12/17/18 09:26 Solu-Medrol - IVPUSH 60 mg DAILY [facility] Administration Metoprolol Tartrate 5 mg 11/28/18 21:33 12/10/18 16:30 Lopressor Injection - IVPUSH 5 mg Q4H PRN Administration HR >120 Metoprolol Tartrate 25 mg 12/10/18 10:45 12/17/18 09:25 Lopressor - PO 25 mg BID [facility] Administration Morphine Sulfate 2 mg 12/14/18 16:18 Morphine Sulfate IVPUSH Q4H PRN mild SOB Morphine Sulfate 4 mg 12/14/18 16:18 12/15/18 01:59 Morphine Sulfate IVPUSH 4 mg Q4H PRN Administration moderate SOB Morphine Sulfate 6 mg 12/14/18 16:19 Morphine Sulfate IVPUSH Q4H PRN severe SOB Polyethylene Glycol 17 gm 12/16/18 22:00 12/17/18 10:05 Miralax (For Daily Use) - PO Not Given BID [facility] Rosuvastatin Calcium 40 mg 12/16/18 22:00 12/16/18 21:44 Crestor - PO 40 mg HS [facility] Administration Saliva Substitute 1 applic 12/05/18 06:36 12/05/18 07:08 Mouthkote Solution - MM 1 applic Q2H PRN Administration COUGH Senna 8.8 mg 12/09/18 22:00 12/16/18 21:50 Senna Oral Solution - PO Not Given HS [facility] Laboratory Results - last 24 hr 12/12/18 12/14/18 12/15/18 05:30 22:25 05:34 WBC RBC Hgb Hct MCV MCH MCHC RDW Plt Count MPV Absolute Neuts (auto) Neutrophils % Lymphocytes % Monocytes % Eosinophils % Basophils % Nucleated RBC % Sodium Potassium Chloride Carbon Dioxide Anion Gap BUN Creatinine Creat Clearance w eGFR POC Glucometer 199.71424 125.13985 Random Glucose Calcium Phosphorus Magnesium Total Bilirubin AST ALT Alkaline Phosphatase Total Protein Albumin Urine Color Urine Appearance Urine pH Ur Specific [place] Urine Protein Urine Glucose (UA) Urine Ketones Urine Blood Urine Nitrite Urine Bilirubin Urine Urobilinogen Ur Leukocyte Esterase Urine WBC (Auto) Urine RBC (Auto) Ur Epithelial Cells Urine Bacteria S.cerevisiae IgG Ab 36.1 H S. cerevisiae IgG/IgA 135.1 H 12/15/18 12/15/18 12/15/18 12:30 17:07 22:43 WBC RBC Hgb Hct MCV MCH MCHC RDW Plt Count MPV Absolute Neuts (auto) Neutrophils % Lymphocytes % Monocytes % Eosinophils % Basophils % Nucleated RBC % Sodium Potassium Chloride Carbon Dioxide Anion Gap BUN Creatinine Creat Clearance w eGFR POC Glucometer 202.24196 201.67251 130.49148 Random Glucose Calcium Phosphorus Magnesium Total Bilirubin AST ALT Alkaline Phosphatase Total Protein Albumin Urine Color Urine Appearance Urine pH Ur Specific [place] Urine Protein Urine Glucose (UA) Urine Ketones Urine Blood Urine Nitrite Urine Bilirubin Urine Urobilinogen Ur Leukocyte Esterase Urine WBC (Auto) Urine RBC (Auto) Ur Epithelial Cells Urine Bacteria S.cerevisiae IgG Ab S. cerevisiae IgG/IgA 12/16/18 12/16/18 12/16/18 06:23 11:04 15:35 WBC RBC Hgb Hct MCV MCH MCHC RDW Plt Count MPV Absolute Neuts (auto) Neutrophils % Lymphocytes % Monocytes % Eosinophils % Basophils % Nucleated RBC % Sodium Potassium Chloride Carbon Dioxide Anion Gap BUN Creatinine Creat Clearance w eGFR POC Glucometer 118.99555 252.61295 294.93376 Random Glucose Calcium Phosphorus Magnesium Total Bilirubin AST ALT Alkaline Phosphatase Total Protein Albumin Urine Color Urine Appearance Urine pH Ur Specific [place] Urine Protein Urine Glucose (UA) Urine Ketones Urine Blood Urine Nitrite Urine Bilirubin Urine Urobilinogen Ur Leukocyte Esterase Urine WBC (Auto) Urine RBC (Auto) Ur Epithelial Cells Urine Bacteria S.cerevisiae IgG Ab S. cerevisiae IgG/IgA 12/16/18 12/16/18 12/17/18 16:00 21:44 05:30 WBC 7.9 RBC 4.44 Hgb 14.5 Hct 42.2 MCV 95.1 MCH 32.7 MCHC 34.4 RDW 14.5 Plt Count 98 L MPV 10.6 Absolute Neuts (auto) 6.0 Neutrophils % 75.4 Lymphocytes % 15.1 Monocytes % 6.6 Eosinophils % 2.5 Basophils % 0.4 Nucleated RBC % 0 Sodium Potassium Chloride Carbon Dioxide Anion Gap BUN Creatinine Creat Clearance w eGFR POC Glucometer 219.95026 Random Glucose Calcium Phosphorus Magnesium Total Bilirubin AST ALT Alkaline Phosphatase Total Protein Albumin Urine Color Yellow Urine Appearance Clear Urine pH 6.0 Ur Specific [place] 1.009 L Urine Protein Negative Urine Glucose (UA) 1+ H Urine Ketones Negative Urine Blood 1+ H Urine Nitrite Negative Urine Bilirubin Negative Urine Urobilinogen 4.0 e.u/dl H Ur Leukocyte Esterase Trace Urine WBC (Auto) 15 Urine RBC (Auto) 9 Ur Epithelial Cells Rare Urine Bacteria Rare S.cerevisiae IgG Ab S. cerevisiae IgG/IgA 12/17/18 05:30 WBC RBC Hgb Hct MCV MCH MCHC RDW Plt Count MPV Absolute Neuts (auto) Neutrophils % Lymphocytes % Monocytes % Eosinophils % Basophils % Nucleated RBC % Sodium 139 Potassium 4.1 Chloride 104 Carbon Dioxide 30 Anion Gap 5 L BUN 40 H Creatinine 0.8 Creat Clearance w eGFR > 60 POC Glucometer Random Glucose 154 H Calcium 8.1 L Phosphorus 2.4 L Magnesium 2.5 H Total Bilirubin 0.5 AST 30 ALT 45 Alkaline Phosphatase 129 H Total Protein 5.0 L Albumin 2.1 L Urine Color Urine Appearance Urine pH Ur Specific [place] Urine Protein Urine Glucose (UA) Urine Ketones Urine Blood Urine Nitrite Urine Bilirubin Urine Urobilinogen Ur Leukocyte Esterase Urine WBC (Auto) Urine RBC (Auto) Ur Epithelial Cells Urine Bacteria S.cerevisiae IgG Ab S. cerevisiae IgG/IgA S1 S2 RRR Lungs decreased breath sounds Abd- soft, NT,obese, ND edema + PLAN In ICU consider dc Clinimix +lipids as pt is eating well renal function improved- unsure Esther's- spoke with Renal-- repeat UA- family not too keen on doing renal biopsy iv antibiotics OOB Pt eval Problem List - Problems (1) Acute on chronic respiratory failure with hypoxia and hypercapnia Code(s): J96.21 - ACUTE AND CHRONIC RESPIRATORY FAILURE WITH HYPOXIA; J96.22 - ACUTE AND CHRONIC RESPIRATORY FAILURE WITH HYPERCAPNIA (2) Acute renal failure Code(s): N17.9 - ACUTE KIDNEY FAILURE, UNSPECIFIED (3) Acute respiratory failure with hypoxia and hypercapnia Code(s): J96.01 - ACUTE RESPIRATORY FAILURE WITH HYPOXIA; J96.02 - ACUTE RESPIRATORY FAILURE WITH HYPERCAPNIA (4) Alcoholism Code(s): F10.20 - ALCOHOL DEPENDENCE, UNCOMPLICATED (5) Atrial flutter Code(s): I48.92 - UNSPECIFIED ATRIAL FLUTTER Qualifiers: Atrial flutter type: unspecified Qualified Code(s): I48.92 - Unspecified atrial flutter (6) Bilateral lower extremity edema Code(s): R60.0 - LOCALIZED EDEMA
[2018-12-17 11:25] LABS: URINE APPEARANCE CLEAR; URINE BILIRUBIN NEGATIVE (<2.0 mg/dL); URINE COLOR YELLOW; URINE GLUCOSE (UA) 1+ (NEGATIVE); URINE KETONE NEGATIVE (NEGATIVE); URINE LEUK ESTERASE NEGATIVE (NEGATIVE); URINE NITRITE NEGATIVE (NEGATIVE); URINE PROTEIN NEGATIVE (NEGATIVE); URINE UROBILINOGEN 4.0 E.U/dl mg/dL (0.2-1.0)
[2018-12-17] MEDS ORDERED: PT OWN MED DRAWER 7, Y5N ONE (11:28)
--- NOTE | 2018-12-17 11:52 | PN ---
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, Physician History of Present Illness: 53 YO white woman with h/o COPD (placed on steroid course 2 days ago without relief) acute/chronic alcoholism (several glasses of rum daily), long-term cigarette smoker, sleep apnea, morbid obesity, DM, HTN, hyperlipidemia, chronic erythema of LEs with hx cellulitis, metabolic syndrome, who is now admitted with SOB and wheezing similar to her prior COPD exacerbation. She additionally notes awakening in the middle of the night last night with visual hallucinations. She additionally notes abdominal swelling recently, believes she has an abdominal infection but does not know what kind. Denies h/o heart arrhythmia. She has noticed her lips are more blue than normal. - Current Medication List Current Medications: Active Medications Albuterol Sulfate (Ventolin 0.083% Nebulizer Soln -) 1 amp NEB Q6H PRN PRN Reason: SHORT OF BREATH/WHEEZING Apixaban (Eliquis -) 5 mg PO BID [facility] Last Admin: 12/17/18 09:25 Dose: 5 mg Digoxin (Lanoxin Injection -) 0.125 mg IVPUSH DAILY [facility] Last Admin: 12/17/18 09:27 Dose: 0.125 mg Docusate Sodium (Colace -) 100 mg PO DAILY [facility] Last Admin: 12/17/18 09:25 Dose: 100 mg Enalaprilat (Vasotec Injection -) 1.25 mg IVPB Q6H-IV [facility] Last Admin: 12/17/18 09:25 Dose: 1.25 mg Amino Acids (Clinimix -) 1,000 mls @ 84 mls/hr IV Q12H [facility] Last Admin: 12/17/18 00:00 Dose: 84 mls/hr Fat Emulsion Intravenous (Intralipid -) 250 mls @ 20.833 mls/hr IV DAILY@2200 [facility] Last Admin: 12/16/18 21:46 Dose: 20.833 mls/hr Levofloxacin (Levaquin 750 Mg Premixed Ivpb -) 750 mg in 150 mls @ 150 mls/hr IVPB DAILY [facility]; Protocol Stop: 12/20/18 09:59 Last Admin: 12/17/18 09:26 Dose: 150 mls/hr Sodium Phosphate 30 mm/ Sodium (Chloride) 260 mls @ 62.5 mls/hr IVPB ONCE ONE Stop: 12/17/18 13:32 Last Admin: 12/17/18 11:29 Dose: 62.5 mls/hr Insulin Aspart (Novolog Vial Sliding Scale -) 1 vial SQ [facility]; Protocol Last Admin: 12/17/18 11:30 Dose: Not Given Insulin Detemir (Levemir Vial) 8 units SQ [facility] Last Admin: 12/16/18 21:45 Dose: 8 units Ipratropium [place] (Atrovent 0.02% Nebulizer -) 1 amp NEB RQID [facility] Last Admin: 12/17/18 08:10 Dose: 1 amp Methylprednisolone Sodium Succinate (Solu-Medrol -) 60 mg IVPUSH DAILY [facility] Last Admin: 12/17/18 09:26 Dose: 60 mg Metoprolol Tartrate (Lopressor Injection -) 5 mg IVPUSH Q4H PRN PRN Reason: HR >120 Last Admin: 12/10/18 16:30 Dose: 5 mg Metoprolol Tartrate (Lopressor -) 25 mg PO BID [facility] Last Admin: 12/17/18 09:25 Dose: 25 mg Morphine Sulfate (Morphine Sulfate) 2 mg IVPUSH Q4H PRN PRN Reason: mild SOB Morphine Sulfate (Morphine Sulfate) 4 mg IVPUSH Q4H PRN PRN Reason: moderate SOB Last Admin: 12/15/18 01:59 Dose: 4 mg Morphine Sulfate (Morphine Sulfate) 6 mg IVPUSH Q4H PRN PRN Reason: severe SOB Polyethylene Glycol (Miralax (For Daily Use) -) 17 gm PO BID [facility] Last Admin: 12/17/18 10:05 Dose: Not Given Rosuvastatin Calcium (Crestor -) 40 mg PO [facility] Last Admin: 12/16/18 21:44 Dose: 40 mg Saliva Substitute (Mouthkote Solution -) 1 applic MM Q2H PRN PRN Reason: COUGH Last Admin: 12/05/18 07:08 Dose: 1 applic Senna (Senna Oral Solution -) 8.8 mg PO [facility] Last Admin: 12/16/18 21:50 Dose: Not Given - Objective Vital Signs: Vital Signs Temperature 98.6 F 12/17/18 10:07 Pulse Rate 74 12/17/18 11:00 Respiratory Rate 18 12/17/18 11:00 Blood Pressure 112/76 12/17/18 11:00 O2 Sat by Pulse Oximetry (%) 93 L 12/17/18 09:45 Eyes: Yes: WNL, Conjunctiva Clear, EOM Intact HENT: Yes: WNL, Atraumatic, Normocephalic Neck: Yes: WNL, Supple, Trachea Midline Cardiovascular: Yes: WNL, Regular Rate and Rhythm Respiratory: Yes: WNL, Regular, CTA Bilaterally Gastrointestinal: Yes: WNL, Normal Bowel Sounds Genitourinary: Yes: WNL Musculoskeletal: Yes: WNL Extremities: Yes: WNL Edema: No Integumentary: Yes: WNL Neurological: Yes: WNL, Alert, Oriented ...Motor Strength: WNL Psychiatric: Yes: WNL Labs: CBC, BMP 12/17/18 05:30 12/17/18 05:30 INR, PTT INR 1.13 (0.83-1.09) H 11/23/18 16:40 Assessment/Plan - Problems (1) Atrial flutter Assessment/Plan: On metoprolol tartrate PO for HR control. On digoxin 0.125 mg daily; keep level 0.5-1.0 (presently reduced from 1.59 to 0.76) On apixaban for anticoagulation. ECHO: unable to assess LVEF; repeat when pt able to turn on left side for better windows (or get MUGA). Code(s): I48.92 - UNSPECIFIED ATRIAL FLUTTER Qualifiers: Atrial flutter type: unspecified Qualified Code(s): I48.92 - Unspecified atrial flutter (2) Morbid obesity Code(s): E66.01 - MORBID (SEVERE) OBESITY DUE TO EXCESS CALORIES (3) HTN (hypertension) Assessment/Plan: Off pressors; BP now ;more consistently elevated. On metoprolol tartrate PO. Improving renal status: consider adding ACEI or ARB (HTN; ?systolic CHF; DM). F/u ECHO for LVEF, wall thickness, chamber sizes, valve status when able to position pt for better windows. Consider MUGA if unable to obtain LVEF from ECHO. Code(s): I10 - ESSENTIAL (PRIMARY) HYPERTENSION (4) Diabetes Assessment/Plan: on Levemir, Novolog. Consider starting ACEI or ARB (HTN, with more regularly elevated BP; ?systolic CHF; DM; improving renal status; now hypokalemic). Aggressive lipid control: start statin. Code(s): E11.9 - TYPE 2 DIABETES MELLITUS WITHOUT COMPLICATIONS (5) Willows cardiac risk >20% in next 10 years Assessment/Plan: TNI negative x 2. BP and glucose control. Keep LDL cholesterol < 70 mg/dL. Smoking cessation. Dietary consult; weight loss. Exercise will be important in the future. Coronary artery evaluation when stable (stress MIBI and/or coronary angiogram). Code(s): Z91.89 - OTH PERSONAL RISK FACTORS, NOT ELSEWHERE CLASSIFIED (6) Alcoholism Assessment/Plan: On Vit B12 and Folate Code(s): F10.20 - ALCOHOL DEPENDENCE, UNCOMPLICATED (7) Ascites Code(s): R18.8 - OTHER ASCITES (8) Interstitial lung disease Assessment/Plan: Moderate pulmonary HTN and RV hypokinesis. TRINH. O2, bronchodilators, steroids per pumonologist. Code(s): J84.9 - INTERSTITIAL PULMONARY DISEASE, UNSPECIFIED (9) CHF (congestive heart failure) Assessment/Plan: Elevated BNP. JVD. F/u BUN/Cr, electrolytes, daily weight, IS and Os,. ECHO repeat for LVEF when pt better able to cooperate (and move on left side); otherwise, consder MUGA for LVEF. Present control of AF/flutter HR with meoprolol and digoxin. Consider start ACEI or ARB (?systolic CHF; DM; HTN; hypokalemia). Code(s): I50.9 - HEART FAILURE, UNSPECIFIED (10) Renal dysfunction Assessment/Plan: improving status; f/u Is and Os, BUN/Cr. Code(s): N28.9 - DISORDER OF KIDNEY AND URETER, UNSPECIFIED (11) Respiratory failure Assessment/Plan: ISLD. TRINH On Bipap, Solumedrol, Atrovent, Ventolin. Code(s): J96.90 - RESPIRATORY FAILURE, UNSP, UNSP W HYPOXIA OR HYPERCAPNIA (12) Sleep apnea Code(s): G47.30 - SLEEP APNEA, UNSPECIFIED (13) Hyperlipidemia Assessment/Plan: LDL cholesterol 108/ HDL 31; trigly 151 mg/dL. LFTs have markedly improved; now WNL. Recommend starting statin (high Willows risk; DM); keep LDL well below 70 mg/ dL. Code(s): E78.5 - HYPERLIPIDEMIA, UNSPECIFIED CCU time spent: 35 minutes.
--- NOTE | 2018-12-17 12:48 | PN ---
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, Physician History of Present Illness: Pt seen and examined at bedside. She remains confused. She remains in the ICU. - Current Medication List Current Medications: Active Medications Albuterol Sulfate (Ventolin 0.083% Nebulizer Soln -) 1 amp NEB Q6H PRN PRN Reason: SHORT OF BREATH/WHEEZING Apixaban (Eliquis -) 5 mg PO BID [facility] Last Admin: 12/17/18 09:25 Dose: 5 mg Digoxin (Lanoxin Injection -) 0.125 mg IVPUSH DAILY [facility] Last Admin: 12/17/18 09:27 Dose: 0.125 mg Docusate Sodium (Colace -) 100 mg PO DAILY [facility] Last Admin: 12/17/18 09:25 Dose: 100 mg Enalaprilat (Vasotec Injection -) 1.25 mg IVPB Q6H-IV [facility] Last Admin: 12/17/18 09:25 Dose: 1.25 mg Amino Acids (Clinimix -) 1,000 mls @ 84 mls/hr IV Q12H [facility] Last Admin: 12/17/18 00:00 Dose: 84 mls/hr Fat Emulsion Intravenous (Intralipid -) 250 mls @ 20.833 mls/hr IV DAILY@2200 [facility] Last Admin: 12/16/18 21:46 Dose: 20.833 mls/hr Levofloxacin (Levaquin 750 Mg Premixed Ivpb -) 750 mg in 150 mls @ 150 mls/hr IVPB DAILY [facility]; Protocol Stop: 12/20/18 09:59 Last Admin: 12/17/18 09:26 Dose: 150 mls/hr Sodium Phosphate 30 mm/ Sodium (Chloride) 260 mls @ 62.5 mls/hr IVPB ONCE ONE Stop: 12/17/18 13:32 Last Admin: 12/17/18 11:29 Dose: 62.5 mls/hr Insulin Aspart (Novolog Vial Sliding Scale -) 1 vial SQ ACHS [facility]; Protocol Last Admin: 12/17/18 11:30 Dose: Not Given Insulin Detemir (Levemir Vial) 8 units SQ HS [facility] Last Admin: 12/16/18 21:45 Dose: 8 units Ipratropium [place] (Atrovent 0.02% Nebulizer -) 1 amp NEB RQID [facility] Last Admin: 12/17/18 12:22 Dose: 1 amp Methylprednisolone Sodium Succinate (Solu-Medrol -) 60 mg IVPUSH DAILY [facility] Last Admin: 12/17/18 09:26 Dose: 60 mg Metoprolol Tartrate (Lopressor Injection -) 5 mg IVPUSH Q4H PRN PRN Reason: HR >120 Last Admin: 12/10/18 16:30 Dose: 5 mg Metoprolol Tartrate (Lopressor -) 25 mg PO BID [facility] Last Admin: 12/17/18 09:25 Dose: 25 mg Morphine Sulfate (Morphine Sulfate) 2 mg IVPUSH Q4H PRN PRN Reason: mild SOB Morphine Sulfate (Morphine Sulfate) 4 mg IVPUSH Q4H PRN PRN Reason: moderate SOB Last Admin: 12/15/18 01:59 Dose: 4 mg Morphine Sulfate (Morphine Sulfate) 6 mg IVPUSH Q4H PRN PRN Reason: severe SOB Polyethylene Glycol (Miralax (For Daily Use) -) 17 gm PO BID [facility] Last Admin: 12/17/18 10:05 Dose: Not Given Rosuvastatin Calcium (Crestor -) 40 mg PO [facility] Last Admin: 12/16/18 21:44 Dose: 40 mg Saliva Substitute (Mouthkote Solution -) 1 applic MM Q2H PRN PRN Reason: COUGH Last Admin: 12/05/18 07:08 Dose: 1 applic Senna (Senna Oral Solution -) 8.8 mg PO [facility] Last Admin: 12/16/18 21:50 Dose: Not Given - Objective Vital Signs: Vital Signs Temperature 98.6 F 12/17/18 10:07 Pulse Rate 63 12/17/18 12:23 Respiratory Rate 18 12/17/18 12:13 Blood Pressure 115/94 12/17/18 12:13 O2 Sat by Pulse Oximetry (%) 95 12/17/18 12:23 Constitutional: Yes: Calm Eyes: Yes: Conjunctiva Clear HENT: Yes: Atraumatic Cardiovascular: Yes: S1, S2 Respiratory: Yes: On Nasal O2 Gastrointestinal: Yes: Soft, Abdomen, Obese Genitourinary: Yes: Incontinence Musculoskeletal: Yes: Muscle Weakness Edema: Yes Edema: LLE: Trace, RLE: Trace Neurological: Yes: Confusion Labs: CBC, BMP 12/17/18 05:30 12/17/18 05:30 INR, PTT INR 1.13 (0.83-1.09) H 11/23/18 16:40 Problem List - Problems (1) Hyperkalemia Code(s): E87.5 - HYPERKALEMIA (2) Acute on chronic respiratory failure with hypoxia and hypercapnia Code(s): J96.21 - ACUTE AND CHRONIC RESPIRATORY FAILURE WITH HYPOXIA; J96.22 - ACUTE AND CHRONIC RESPIRATORY FAILURE WITH HYPERCAPNIA (3) Acute renal failure Code(s): N17.9 - ACUTE KIDNEY FAILURE, UNSPECIFIED (4) Alcoholism Code(s): F10.20 - ALCOHOL DEPENDENCE, UNCOMPLICATED (5) Atrial flutter Code(s): I48.92 - UNSPECIFIED ATRIAL FLUTTER Qualifiers: Atrial flutter type: unspecified Qualified Code(s): I48.92 - Unspecified atrial flutter (6) Bilateral lower extremity edema Code(s): R60.0 - LOCALIZED EDEMA (7) COPD exacerbation Code(s): J44.1 - CHRONIC OBSTRUCTIVE PULMONARY DISEASE W (ACUTE) EXACERBATION Assessment/Plan Current Medications Generic Name Dose Route Start Last Admin Trade Name Freq PRN Reason Stop Dose Admin Albuterol Sulfate 1 amp 12/10/18 10:43 Ventolin 0.083% Nebulizer Soln - NEB Q6H PRN SHORT OF BREATH/WHEEZING Apixaban 5 mg 12/15/18 16:15 12/17/18 09:25 Eliquis - PO 5 mg BID [facility] Administration Digoxin 0.125 mg 12/02/18 12:15 12/17/18 09:27 Lanoxin Injection - IVPUSH 0.125 mg DAILY [facility] Administration Docusate Sodium 100 mg 12/14/18 21:30 12/17/18 09:25 Colace - PO 100 mg DAILY [facility] Administration Enalaprilat 1.25 mg 12/16/18 09:00 12/17/18 09:25 Vasotec Injection - IVPB 1.25 mg Q6H-IV [facility] Administration Amino Acids 1,000 mls @ 84 mls/hr 12/12/18 12:00 12/17/18 00:00 Clinimix - IV 84 mls/hr Q12H [facility] Administration Fat Emulsion Intravenous 250 mls @ 20.833 mls/hr 12/12/18 22:00 12/16/18 21: 46 Intralipid - IV 20.833 mls/hr DAILY@2200 [facility] Administration Levofloxacin 750 mg in 150 mls @ 150 mls/hr 12/13/18 10:00 12/17/18 09:26 Levaquin 750 Mg Premixed Ivpb - IVPB 12/20/18 09:59 150 mls/hr DAILY [facility] Administration Protocol Sodium Phosphate 30 mm/ Sodium 260 mls @ 62.5 mls/hr 12/17/18 09:23 12/17/18 11:29 Chloride IVPB 12/17/18 13:32 62.5 mls/hr ONCE ONE Administration Insulin Aspart 1 vial 12/03/18 10:32 12/17/18 11:30 Novolog Vial Sliding Scale - SQ Not Given ACHS [facility] Protocol Insulin Detemir 8 units 12/12/18 10:39 12/16/18 21:45 Levemir Vial SQ 8 units HS [facility] Administration Ipratropium [place] 1 amp 12/10/18 12:00 12/17/18 12:22 Atrovent 0.02% Nebulizer - NEB 1 amp RQID [facility] Administration Methylprednisolone Sodium Succinate 60 mg 12/09/18 12:00 12/17/18 09:26 Solu-Medrol - IVPUSH 60 mg DAILY [facility] Administration Metoprolol Tartrate 5 mg 11/28/18 21:33 12/10/18 16:30 Lopressor Injection - IVPUSH 5 mg Q4H PRN Administration HR >120 Metoprolol Tartrate 25 mg 12/10/18 10:45 12/17/18 09:25 Lopressor - PO 25 mg BID [facility] Administration Morphine Sulfate 2 mg 12/14/18 16:18 Morphine Sulfate IVPUSH Q4H PRN mild SOB Morphine Sulfate 4 mg 12/14/18 16:18 12/15/18 01:59 Morphine Sulfate IVPUSH 4 mg Q4H PRN Administration moderate SOB Morphine Sulfate 6 mg 12/14/18 16:19 Morphine Sulfate IVPUSH Q4H PRN severe SOB Polyethylene Glycol 17 gm 12/16/18 22:00 12/17/18 10:05 Miralax (For Daily Use) - PO Not Given BID [facility] Rosuvastatin Calcium 40 mg 12/16/18 22:00 12/16/18 21:44 Crestor - PO 40 mg HS [facility] Administration Saliva Substitute 1 applic 12/05/18 06:36 12/05/18 07:08 Mouthkote Solution - MM 1 applic Q2H PRN Administration COUGH Senna 8.8 mg 12/09/18 22:00 12/16/18 21:50 Senna Oral Solution - PO Not Given HS [facility] Impression 1. PITO 2. hyperkalemia 3. a-flutter 4. resp failure requiring bipap 5. DM 6. HTN 7. active smoker 8. etoh abuse 9. obesity 10. interstitial lung disease on CT scan 11. resp acidosis 12. COPD 13. positive pr3 14. hypernatremia Plan - cont to monitor renal function - ua reviewed - pt unable to make own decisions at this point - pending family to decide about biopsy - rheumatology follow up - pt has been off of aspirin
--- NOTE | 2018-12-17 12:57 | PN ---
Teaching Attending Note Name of Resident: Kortney Castañeda ATTENDING PHYSICIAN STATEMENT I saw and evaluated the patient. I reviewed the resident's note and discussed the case with the resident. I agree with the resident's findings and plan as documented. SUBJECTIVE: Pt seen and examined in the ICU. Breathing continues to improve. Denies chest pain. Heart rates mostly controlled. OBJECTIVE: Vital Signs Period Temp Pulse Resp BP Sys/Gregorio Pulse Ox Last 24 Hr 98.1 F-98.9 F 57-119 15-22 96-132/62-94 93-98 Intake & Output 12/14/18 12/15/18 12/16/18 12/17/18 23:59 23:59 23:59 23:59 Intake Total 2638 2342 1162 1174.4 Output Total 2 2 1 700 Balance 2636 2340 1161 474.4 Weight 112.128 kg 107.246 kg 108.182 kg Gen: NAD at rest Heart: RRR Lung: decreased breath sounds at the bases Abd: soft, obese, nontender Ext: less edema CBC, BMP 12/17/18 05:30 12/17/18 05:30 Active Medications Albuterol Sulfate (Ventolin 0.083% Nebulizer Soln -) 1 amp NEB Q6H PRN PRN Reason: SHORT OF BREATH/WHEEZING Apixaban (Eliquis -) 5 mg PO BID [facility] Last Admin: 12/17/18 09:25 Dose: 5 mg Digoxin (Lanoxin Injection -) 0.125 mg IVPUSH DAILY [facility] Last Admin: 12/17/18 09:27 Dose: 0.125 mg Docusate Sodium (Colace -) 100 mg PO DAILY [facility] Last Admin: 12/17/18 09:25 Dose: 100 mg Enalaprilat (Vasotec Injection -) 1.25 mg IVPB Q6H-IV [facility] Last Admin: 12/17/18 09:25 Dose: 1.25 mg Amino Acids (Clinimix -) 1,000 mls @ 84 mls/hr IV Q12H [facility] Last Admin: 12/17/18 00:00 Dose: 84 mls/hr Fat Emulsion Intravenous (Intralipid -) 250 mls @ 20.833 mls/hr IV DAILY@2200 [facility] Last Admin: 12/16/18 21:46 Dose: 20.833 mls/hr Levofloxacin (Levaquin 750 Mg Premixed Ivpb -) 750 mg in 150 mls @ 150 mls/hr IVPB DAILY [facility]; Protocol Stop: 12/20/18 09:59 Last Admin: 12/17/18 09:26 Dose: 150 mls/hr Sodium Phosphate 30 mm/ Sodium (Chloride) 260 mls @ 62.5 mls/hr IVPB ONCE ONE Stop: 12/17/18 13:32 Last Admin: 12/17/18 11:29 Dose: 62.5 mls/hr Insulin Aspart (Novolog Vial Sliding Scale -) 1 vial SQ [facility]; Protocol Last Admin: 12/17/18 11:30 Dose: Not Given Insulin Detemir (Levemir Vial) 8 units SQ [facility] Last Admin: 12/16/18 21:45 Dose: 8 units Ipratropium [place] (Atrovent 0.02% Nebulizer -) 1 amp NEB RQID [facility] Last Admin: 12/17/18 12:22 Dose: 1 amp Methylprednisolone Sodium Succinate (Solu-Medrol -) 60 mg IVPUSH DAILY [facility] Last Admin: 12/17/18 09:26 Dose: 60 mg Metoprolol Tartrate (Lopressor Injection -) 5 mg IVPUSH Q4H PRN PRN Reason: HR >120 Last Admin: 12/10/18 16:30 Dose: 5 mg Metoprolol Tartrate (Lopressor -) 25 mg PO BID [facility] Last Admin: 12/17/18 09:25 Dose: 25 mg Morphine Sulfate (Morphine Sulfate) 2 mg IVPUSH Q4H PRN PRN Reason: mild SOB Morphine Sulfate (Morphine Sulfate) 4 mg IVPUSH Q4H PRN PRN Reason: moderate SOB Last Admin: 12/15/18 01:59 Dose: 4 mg Morphine Sulfate (Morphine Sulfate) 6 mg IVPUSH Q4H PRN PRN Reason: severe SOB Polyethylene Glycol (Miralax (For Daily Use) -) 17 gm PO BID [facility] Last Admin: 12/17/18 10:05 Dose: Not Given Rosuvastatin Calcium (Crestor -) 40 mg PO [facility] Last Admin: 12/16/18 21:44 Dose: 40 mg Saliva Substitute (Mouthkote Solution -) 1 applic MM Q2H PRN PRN Reason: COUGH Last Admin: 12/05/18 07:08 Dose: 1 applic Senna (Senna Oral Solution -) 8.8 mg PO HS [facility] Last Admin: 12/16/18 21:50 Dose: Not Given ASSESSMENT AND PLAN: Acute on Chronic Hypoxic and Hypercapneic Respiratory Failure improving Acute COPD Exacerbation Morbid Obesity Obstructive Sleep Apnea/Obesity Hypoventilation Syndrome Suspect Right Heart Failure Volume Overload Mediastinal Lymphadenopathy Atrial Fibrillation with RVR Cellulitis treated Acute Kidney Injury Alcohol Abuse - rate control - continue anticoagulation - can decrease medrol - inhaled bronchodilators PRN - completed antibiotics - lasix as needed - monitor urine output, creatinine - O2 to keep Spo2 >90% - rehab/PT - DVT/GI prophylaxis - would re-address advanced directives, goals of care with pt herself now that she is more awake
--- NOTE | 2018-12-17 13:44 | ECHO ---
Name: CLAYDANIELDARRELLMOUNIKAMELECIO Leo Exam:Adult Echocardiogram Study Date: 12/17/2018 11:39 AM Age: 53 yrs Reason For Study: LV Function Height: 68 in Weight: 236 lb BSA: 2.2 m2 BP: 112/76 mmHg MMode/2D Measurements & Calculations IVSd: 0.84 cm Ao root diam: 3.1 cm LVIDd: 4.6 cm LA dimension: 3.7 cm LVIDs: 3.0 cm ACS: 2.0 cm LVPWd: 0.89 cm EDV(Teich): 99.0 ml LVOT diam: 2.2 cm ESV(Teich): 34.4 ml RV S Obed: 10.3 cm/sec Doppler Measurements & Calculations MV E max obed: 76.2 cm/sec AI P1/2t: 690.7 msec AI max obed: 381.0 cm/sec TR max obed: 260.6 cm/sec AI max P.1 mmHg TR max P.2 mmHg AI dec slope: 161.6 cm/sec2 Med Peak E' Obed: 6.3 cm/sec Med E/e': 12.1 Lat Peak E' Obed: 7.6 cm/sec Lat E/e': 10.0 Procedure A two-dimensional transthoracic echocardiogram with color flow and Doppler was performed. The study w as technically difficult with many images being suboptimal in quality. Left Ventricle There is moderate concentric left ventricular hypertrophy. The left ventricular ejection fraction is normal. Regional wall motion abnormalities cannot be excluded due to limited visualization. Right Ventricle The right ventricle is normal in size and function. Atria Normal left and right atrial size and function. Mitral Valve There is mild mitral valve thickening. There is no mitral valve stenosis. There is trace to mild mitr al regurgitation. Tricuspid Valve There is mild tricuspid valve thickening. There is no tricuspid stenosis. There is mild tricuspid regurgitation. Right ventricular systolic pressure is normal. Aortic Valve The aortic valve is not well visualized. No hemodynamically significant valvular aortic stenosis. Mil d aortic regurgitation. Pulmonic Valve The pulmonic valve is not well visualized. Great Vessels The aortic root is normal size. Pericardium/Pleura There is no pericardial effusion. Interpretation Summary There is moderate concentric left ventricular hypertrophy. The left ventricular ejection fraction is normal. Regional wall motion abnormalities cannot be excluded due to limited visualization. There is mild tricuspid regurgitation. Right ventricular systolic pressure is normal. The study was technically difficult with many images being suboptimal in quality. There is trace to mild mitral regurgitation. Mild aortic regurgitation. MD Nic Jaeger 12/17/2018 01:44 PM
--- NOTE | 2018-12-17 15:21 | PN ---
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 Today pt seen bedside, o x 3, wants therapy to improve her function. Seen by palliative care. Swallowing improving.(-) aspiration with careful sips of water. REC: trial of soft reg diet, singkle sips of thin liquid, assistance with meals. Aspiration precautions.
--- NOTE | 2018-12-17 15:34 | PN ---
Physical Exam: SUBJECTIVE: Patient seen and examined this morning at bedside. Breathing continues to improve. Denies any palpitations, chest pain, SOB overnight. No new complaints. No acute overnight events as per nursing. OBJECTIVE: Vital Signs Period Temp Pulse Resp BP Sys/Gregorio Pulse Ox Last 24 Hr 98.1 F-98.9 F 57-119 15-21 96-132/62-94 93-98 GENERAL: A&Ox3, NAD HEAD: NCAT EYES: PERRL, EOMI ENT: Oropharynx clear without exudates, moist mucous membranes. NECK: Trachea midline, full range of motion, supple. LUNGS: Diminished breath sounds at the bases HEART: Regular rate and rhythm, S1, S2 without murmur ABDOMEN: Soft, nontender, nondistended, + bowel sounds, no guarding EXTREMITIES: 2+ pulses, Trace edema. NEUROLOGICAL: Cranial nerves II through XII grossly intact. Normal speech SKIN: Warm, dry Laboratory Results - last 24 hr 12/16/18 12/16/18 12/16/18 15:35 16:00 21:44 WBC RBC Hgb Hct MCV MCH MCHC RDW Plt Count MPV Absolute Neuts (auto) Neutrophils % Lymphocytes % Monocytes % Eosinophils % Basophils % Nucleated RBC % Sodium Potassium Chloride Carbon Dioxide Anion Gap BUN Creatinine Creat Clearance w eGFR POC Glucometer [phone] Random Glucose Calcium Phosphorus Magnesium Total Bilirubin AST ALT Alkaline Phosphatase Total Protein Albumin Urine Color Yellow Urine Appearance Clear Urine pH 6.0 Ur Specific [place] 1.009 L Urine Protein Negative Urine Glucose (UA) 1+ H Urine Ketones Negative Urine Blood 1+ H Urine Nitrite Negative Urine Bilirubin Negative Urine Urobilinogen 4.0 e.u/dl H Ur Leukocyte Esterase Trace Urine WBC (Auto) 15 Urine RBC (Auto) 9 Ur Epithelial Cells Rare Urine Bacteria Rare 12/17/18 12/17/18 12/17/18 05:30 05:30 06:40 WBC 7.9 RBC 4.44 Hgb 14.5 Hct 42.2 MCV 95.1 MCH 32.7 MCHC 34.4 RDW 14.5 Plt Count 98 L MPV 10.6 Absolute Neuts (auto) 6.0 Neutrophils % 75.4 Lymphocytes % 15.1 Monocytes % 6.6 Eosinophils % 2.5 Basophils % 0.4 Nucleated RBC % 0 Sodium 139 Potassium 4.1 Chloride 104 Carbon Dioxide 30 Anion Gap 5 L BUN 40 H Creatinine 0.8 Creat Clearance w eGFR > 60 POC Glucometer [phone] Random Glucose 154 H Calcium 8.1 L Phosphorus 2.4 L Magnesium 2.5 H Total Bilirubin 0.5 AST 30 ALT 45 Alkaline Phosphatase 129 H Total Protein 5.0 L Albumin 2.1 L Urine Color Urine Appearance Urine pH Ur Specific [place] Urine Protein Urine Glucose (UA) Urine Ketones Urine Blood Urine Nitrite Urine Bilirubin Urine Urobilinogen Ur Leukocyte Esterase Urine WBC (Auto) Urine RBC (Auto) Ur Epithelial Cells Urine Bacteria 12/17/18 12/17/18 10:35 11:25 WBC RBC Hgb Hct MCV MCH MCHC RDW Plt Count MPV Absolute Neuts (auto) Neutrophils % Lymphocytes % Monocytes % Eosinophils % Basophils % Nucleated RBC % Sodium Potassium Chloride Carbon Dioxide Anion Gap BUN Creatinine Creat Clearance w eGFR POC Glucometer [phone] Random Glucose Calcium Phosphorus Magnesium Total Bilirubin AST ALT Alkaline Phosphatase Total Protein Albumin Urine Color Yellow Urine Appearance Clear Urine pH 6.0 Ur Specific [place] 1.009 L Urine Protein Negative Urine Glucose (UA) 1+ H Urine Ketones Negative Urine Blood 1+ H Urine Nitrite Negative Urine Bilirubin Negative Urine Urobilinogen 4.0 e.u/dl H Ur Leukocyte Esterase Negative Urine WBC (Auto) 1 Urine RBC (Auto) 1 Ur Epithelial Cells Urine Bacteria Microbiology 12/11/18 15:30 Urine - Urine - Catheterized Urine Culture - Final NO GROWTH OBTAINED 11/24/18 04:00 Blood - Peripheral Venous Blood Culture - Final NO GROWTH AFTER 5 DAYS INCUBATION 11/24/18 04:00 Blood - Peripheral Venous Blood Culture - Final NO GROWTH AFTER 5 DAYS INCUBATION 11/24/18 12:50 Urine - Urine Clean Catch Urine Culture - Final NO GROWTH OBTAINED 11/24/18 12:25 Urine For Antigen Detection Legionella Antigen - Final 11/24/18 12:25 Urine For Antigen Detection Streptococcus pneumoniae Antigen (M - Final Active Medications Albuterol Sulfate (Ventolin 0.083% Nebulizer Soln -) 1 amp NEB Q6H PRN PRN Reason: SHORT OF BREATH/WHEEZING Apixaban (Eliquis -) 5 mg PO BID COUNTS INCLUDE 234 BEDS AT THE [facility] Last Admin: 12/17/18 09:25 Dose: 5 mg Docusate Sodium (Colace -) 100 mg PO DAILY [facility] Last Admin: 12/17/18 09:25 Dose: 100 mg Insulin Aspart (Novolog Vial Sliding Scale -) 1 vial SQ ACHS COUNTS INCLUDE 234 BEDS AT THE [facility]; Protocol Last Admin: 12/17/18 11:30 Dose: Not Given Insulin Detemir (Levemir Vial) 8 units SQ [facility] Last Admin: 12/16/18 21:45 Dose: 8 units Ipratropium [place] (Atrovent 0.02% Nebulizer -) 1 amp NEB RQID COUNTS INCLUDE 234 BEDS AT THE [facility] Last Admin: 12/17/18 12:22 Dose: 1 amp Lisinopril (Prinivil) 10 mg PO DAILY COUNTS INCLUDE 234 BEDS AT THE [facility] Metoprolol Tartrate (Lopressor Injection -) 5 mg IVPUSH Q4H PRN PRN Reason: HR >120 Last Admin: 12/10/18 16:30 Dose: 5 mg Metoprolol Tartrate (Lopressor -) 50 mg PO BID COUNTS INCLUDE 234 BEDS AT THE [facility] Morphine Sulfate (Morphine Sulfate) 2 mg IVPUSH Q4H PRN PRN Reason: mild SOB Morphine Sulfate (Morphine Sulfate) 4 mg IVPUSH Q4H PRN PRN Reason: moderate SOB Last Admin: 12/15/18 01:59 Dose: 4 mg Morphine Sulfate (Morphine Sulfate) 6 mg IVPUSH Q4H PRN PRN Reason: severe SOB Polyethylene Glycol (Miralax (For Daily Use) -) 17 gm PO BID COUNTS INCLUDE 234 BEDS AT THE [facility] Last Admin: 12/17/18 10:05 Dose: Not Given Prednisone (Deltasone -) 40 mg PO DAILY COUNTS INCLUDE 234 BEDS AT THE [facility] Rosuvastatin Calcium (Crestor -) 40 mg PO [facility] Last Admin: 12/16/18 21:44 Dose: 40 mg Saliva Substitute ([place]outhk[place] Solution -) 1 applic MM Q2H PRN PRN Reason: COUGH Last Admin: 12/05/18 07:08 Dose: 1 applic Senna (Senna Oral Solution -) 8.8 mg PO [facility] Last Admin: 12/16/18 21:50 Dose: Not Given ASSESSMENT/PLAN: 53 y/o F with PMHx of COPD, EtOH abuse, Tobacco Dependence, TRINH, morbid obesity , DM, HTN, HLD was transferred to ICU due to worsening respiratory failure #Pulmonary Acute hypercapnic respiratory failure -Due to pulmonary edema; COPD VS CHF exacerbation -CXR (12/17): No evidence of active pulmonary disease. -Continue Ipratropium QID, Albuterol Q6H PRN -D/C Methylprednisolone; Start PO Prednisone 40mg Daily ILD -CTA (11/24): Interstitial lung disease with mediastinal and hilar lymphadenopathy. The possibility of sarcoidosis cannot be excluded -PO Prednisone 40mg Daily #Cardio Atrial Flutter -EKG (12/14): ATRIAL FIBRILLATION, LEFT POSTERIOR FASCICULAR BLOCK, VR 79, QTc 421 -Cardiology (Dr Jefferson) consulted, appreciate Rec's -D/C Digoxin -Increase Metoprolol tartrate to 50mg PO BID -Continue Metroprolol tartrate IV 5mg PRN -Continue Eliquis 5mg PO BID CHF -BNP: 2700 -ECHO (12/17): LVEF is normal, Regional WMA cannot be excluded, Mild MR, Mild TR -Not fluid overloaded currently, Will continue to monitor, Daily weights, I&Os HTN -Continue Metoprolol -Start Lisinopril 10mg Daily -D/C Vasotec HLD -Continue Rosuvastatin 40mg HS #Neuro -Continue pain control -Continue to monitor #GI -Speech and swallow consulted, appreciate rec's -Bowel regimen via Colace, Miralax, senna #Renal PITO, Resolved -Nephrology (Dr. Blackburn) Consulted, Appreciate rec's -Continue to monitor #Endo DM -ISS BGM ACHS -Levemir 8 units HS #ID -ID (Dr. Garza) consulted, Appreciate Rec's -Completed course of ABx -Continue to monitor for signs of infection #FEN -PO Fluids -Replete Potassium and Mag -Trial Soft diet, thin liquids #PPx -DVT: Eliquis 5mg BID -GI: Protonix Code status: Full Code Dispo: Continues to monitor in ICU Visit type - Emergency Visit Emergency Visit: Yes ED Registration Date: 11/23/18 Care time: The patient presented to the Emergency Department on the above date and was hospitalized for further evaluation of their emergent condition. - New Patient This patient is new to me today: Yes Date on this admission: 12/17/18 - Critical Care Critical Care patient: Yes Total Critical Care Time (in minutes): 36 Critical Care Statement: The care of this patient involved high complexity decision making to prevent further life threatening deterioration of the patient 's condition and/or to evaluate & treat vital organ system(s) failure or risk of failure.
[2018-12-17] MEDS ORDERED: METOPROLOL TARTRATE 5 MG/5 ML VIAL IVPUSH PRN (16:52)
[2018-12-17] MEDS ORDERED: LYTES/YERBA SANTA 240 ML BOTTLE MM PRN (16:52)
[2018-12-17] MEDS ORDERED: ALBUTEROL SO4 0.083% IH SOL 2.5 MG/3 ML VIAL.NEB. NEB PRN (16:52)
[2018-12-17] MEDS: SENNOSIDES 8.8 MG/5 ML BULK BOTTLE PO SCH (21:20)
[2018-12-17] MEDS: INSULIN (LEVEMIR) 100 UNITS/ML UNITS SQ SCH (21:20)
[2018-12-17] MEDS: ROSUVASTATIN CA 20 MG TABLET (FP) PO SCH (21:21)
[2018-12-18] MEDS: INSULIN SLIDING SCALE (NOVOLOG) 1 VIAL SQ SCH ×4 (06:08→21:47)
[2018-12-18 06:19] LABS: BASO % 0.3 % (0-2.0); EOS % 2.3 % (0-4.5); HEMATOCRIT 44.3 % (32.4-45.2); HEMOGLOBIN 15.1 GM/dL (10.7-15.3); LYMPH % 13.4 % (8-40); MCH 32.7 pg (25.7-33.7); MCHC 34.1 g/dl (32.0-36.0); MEAN CELL VOLUME 96.1 fl (80-96); MEAN PLT VOLUME 10.4 fl (7.5-11.1); MONO % 7.3 % (3.8-10.2); NEUT % 76.7 % (42.8-82.8); PLATELET COUNT 103 K/MM3 (134-434); RBC 4.61 M/mm3 (3.60-5.2); RDW 14.8 % (11.6-15.6)
[2018-12-18] MEDS: IPRATROPIUM BR 0.02% 0.5 MG/2.5 ML VIAL.NEB. NEB SCH ×4 (07:34→21:05)
[2018-12-18 08:17] LABS: ALBUMIN 2.4 g/dl (3.4-5.0); ALK PHOS 136 U/L (45-117); ANION GAP 7 MMOL/L (8-16); BILIRUBIN,TOTAL 0.8 mg/dL (0.2-1); BLOOD UREA NITROGEN 42 mg/dL (7-18); CALCIUM 8.8 mg/dL (8.5-10.1); CHLORIDE 105 mmol/L (98-107); CO2 31 mmol/L (21-32); CREATININE 0.9 mg/dL (0.55-1.3); GLUCOSE,RANDOM 124 mg/dL (74-106); MAGNESIUM 2.4 mg/dL (1.8-2.4); PHOSPHOROUS 3.1 mg/dL (2.5-4.9); POTASSIUM 4.1 mmol/L (3.5-5.1); SGOT/AST 31 U/L (15-37); SGPT/ALT 53 U/L (13-61); SODIUM 143 mmol/L (136-145); TOT PROT 5.6 g/dl (6.4-8.2)
[2018-12-18] MEDS: POLYETHYLENE GLYCOL 3350 119 GM BTL PO SCH ×2 (09:36→21:48)
[2018-12-18] MEDS: predniSONE 20 MG TABLET (UD) PO SCH (09:36)
[2018-12-18] MEDS: METOPROLOL TARTRATE 25 MG TABLET (FP) PO SCH ×2 (09:37→21:49)
[2018-12-18] MEDS: LISINOPRIL 10 MG TABLET (FP) PO SCH (09:37)
[2018-12-18] MEDS: APIXABAN 5 MG TABLET PO SCH ×2 (09:37→21:49)
[2018-12-18] MEDS: DOCUSATE SODIUM 100 MG CAPSULE (FP) PO SCH (09:37)
--- NOTE | 2018-12-18 10:46 | PN ---
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 (short form) - Note 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: awake and alert no pain , distress sitting up with PT Vital Signs - 24 hr 12/17/18 12/17/18 12/17/18 12:13 12:23 14:00 Temperature 98.4 F Pulse Rate 57 L 63 60 Respiratory 18 18 Rate Blood Pressure 115/94 122/89 O2 Sat by Pulse 95 Oximetry (%) 12/17/18 12/17/18 12/17/18 16:00 17:30 17:38 Temperature 98 F Pulse Rate 60 Respiratory 18 Rate Blood Pressure 90/68 O2 Sat by Pulse 95 96 Oximetry (%) 12/17/18 12/17/18 12/18/18 20:10 20:12 01:40 Temperature 97.9 F 98.1 F Pulse Rate 83 63 Respiratory 18 18 Rate Blood Pressure 115/58 L 110/66 O2 Sat by Pulse 97 Oximetry (%) 12/18/18 12/18/18 12/18/18 06:31 07:34 09:00 Temperature 98 F Pulse Rate 90 70 Respiratory 18 20 Rate Blood Pressure 98/55 L 112/60 O2 Sat by Pulse 98 Oximetry (%) Current Medications Generic Name Dose Route Start Last Admin Trade Name Freq PRN Reason Stop Dose Admin Albuterol Sulfate 1 amp 12/17/18 16:52 Ventolin 0.083% Nebulizer Soln - NEB Q6H PRN SHORT OF BREATH/WHEEZING Apixaban 5 mg 12/15/18 16:15 12/18/18 09:37 Eliquis - PO 5 mg BID [facility] Administration Docusate Sodium 100 mg 12/18/18 10:00 12/18/18 09:37 Colace - PO 100 mg DAILY [facility] Administration Insulin Aspart 1 vial 12/17/18 22:00 12/18/18 06:08 Novolog Vial Sliding Scale - SQ Not Given ACHS [facility] Protocol Insulin Detemir 8 units 12/17/18 22:00 12/17/18 21:20 Levemir Vial SQ 8 units HS [facility] Administration Ipratropium [place] 1 amp 12/17/18 20:00 12/18/18 11:18 Atrovent 0.02% Nebulizer - NEB 1 amp RQID [facility] Administration Lisinopril 10 mg 12/18/18 10:00 12/18/18 09:37 Prinivil PO 10 mg DAILY [facility] Administration Metoprolol Tartrate 50 mg 12/17/18 14:20 12/18/18 09:37 Lopressor - PO 50 mg BID [facility] Administration Metoprolol Tartrate 5 mg 12/17/18 16:52 Lopressor Injection - IVPUSH Q4H PRN HR >120 Polyethylene Glycol 17 gm 12/16/18 22:00 12/18/18 09:36 Miralax (For Daily Use) - PO 17 gm BID [facility] Administration Prednisone 40 mg 12/18/18 10:00 12/18/18 09:36 Deltasone - PO 40 mg DAILY [facility] Administration Rosuvastatin Calcium 40 mg 12/16/18 22:00 12/17/18 21:21 Crestor - PO 40 mg HS [facility] Administration Saliva Substitute 1 applic 12/17/18 16:52 [place] Solution - MM Q2H PRN COUGH Senna 8.8 mg 12/17/18 22:00 12/17/18 21:20 Senna Oral Solution - PO 8.8 mg HS [facility] Administration Laboratory Results - last 24 hr 12/18/18 12/18/18 05:30 05:30 WBC 9.0 RBC 4.61 Hgb 15.1 Hct 44.3 MCV 96.1 H MCH 32.7 MCHC 34.1 RDW 14.8 Plt Count 103 L MPV 10.4 Absolute Neuts (auto) 6.9 Neutrophils % 76.7 Lymphocytes % 13.4 Monocytes % 7.3 Eosinophils % 2.3 Basophils % 0.3 Nucleated RBC % 0 Sodium 143 Potassium 4.1 Chloride 105 Carbon Dioxide 31 Anion Gap 7 L BUN 42 H Creatinine 0.9 Creat Clearance w eGFR > 60 Random Glucose 124 H Calcium 8.8 Phosphorus 3.1 Magnesium 2.4 Total Bilirubin 0.8 AST 31 ALT 53 Alkaline Phosphatase 136 H Total Protein 5.6 L Albumin 2.4 L S1 S2 RRR Lungs decreased breath sounds Abd- soft, NT,obese, ND edema + PLAN off antibiotics on PO prednisone continue with meds spoke with mother and aunt at bedside Pt will need STR-- spoke with supportive employment case manager clinically improving Problem List - Problems (1) Acute on chronic respiratory failure with hypoxia and hypercapnia Code(s): J96.21 - ACUTE AND CHRONIC RESPIRATORY FAILURE WITH HYPOXIA; J96.22 - ACUTE AND CHRONIC RESPIRATORY FAILURE WITH HYPERCAPNIA (2) Acute renal failure Code(s): N17.9 - ACUTE KIDNEY FAILURE, UNSPECIFIED (3) Acute respiratory failure with hypoxia and hypercapnia Code(s): J96.01 - ACUTE RESPIRATORY FAILURE WITH HYPOXIA; J96.02 - ACUTE RESPIRATORY FAILURE WITH HYPERCAPNIA (4) Alcoholism Code(s): F10.20 - ALCOHOL DEPENDENCE, UNCOMPLICATED (5) Atrial flutter Code(s): I48.92 - UNSPECIFIED ATRIAL FLUTTER Qualifiers: Atrial flutter type: unspecified Qualified Code(s): I48.92 - Unspecified atrial flutter (6) Bilateral lower extremity edema Code(s): R60.0 - LOCALIZED EDEMA
--- NOTE | 2018-12-18 12:02 | PN ---
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 Cognitively good today, verbal, recalls recent events, motivated for STR. Pt reported abdominal distress last night. She said she had 2 magic cup and Ensure, too late at night. Decrease supplements, and increase regular food. Cough noted, likely unrelated to PO intake tolerance. 3 oz water test (-) followed by good voicing.
--- NOTE | 2018-12-18 12:33 | PN ---
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 (short form) - Note 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: PULMONARY Denies shortness of breath or chest pain. Vital Signs Period Temp Pulse Resp BP Sys/Gregorio Pulse Ox Last 24 Hr 97.9 F-98.4 F 60-90 18-20 90-122/55-89 95-98 Gen: NAD at rest Heart: RRR Lung: decreased breath sounds at the bases Abd: soft, nontender Ext: less edema CBC, BMP 12/18/18 05:30 12/18/18 05:30 Active Medications Albuterol Sulfate (Ventolin 0.083% Nebulizer Soln -) 1 amp NEB Q6H PRN PRN Reason: SHORT OF BREATH/WHEEZING Apixaban (Eliquis -) 5 mg PO BID [facility] Last Admin: 12/18/18 09:37 Dose: 5 mg Docusate Sodium (Colace -) 100 mg PO DAILY [facility] Last Admin: 12/18/18 09:37 Dose: 100 mg Insulin Aspart (Novolog Vial Sliding Scale -) 1 vial SQ [facility]; Protocol Last Admin: 12/18/18 12:12 Dose: 4 units Insulin Detemir (Levemir Vial) 8 units SQ [facility] Last Admin: 12/17/18 21:20 Dose: 8 units Ipratropium [place] (Atrovent 0.02% Nebulizer -) 1 amp NEB RQID [facility] Last Admin: 12/18/18 11:18 Dose: 1 amp Lisinopril (Prinivil) 10 mg PO DAILY [facility] Last Admin: 12/18/18 09:37 Dose: 10 mg Metoprolol Tartrate (Lopressor -) 50 mg PO BID [facility] Last Admin: 12/18/18 09:37 Dose: 50 mg Metoprolol Tartrate (Lopressor Injection -) 5 mg IVPUSH Q4H PRN PRN Reason: HR >120 Polyethylene Glycol (Miralax (For Daily Use) -) 17 gm PO BID [facility] Last Admin: 12/18/18 09:36 Dose: 17 gm Prednisone (Deltasone -) 40 mg PO DAILY [facility] Last Admin: 12/18/18 09:36 Dose: 40 mg Rosuvastatin Calcium (Crestor -) 40 mg PO HS [facility] Last Admin: 12/17/18 21:21 Dose: 40 mg Saliva Substitute (Mouthkote Solution -) 1 applic MM Q2H PRN PRN Reason: COUGH Senna (Senna Oral Solution -) 8.8 mg PO HS [facility] Last Admin: 12/17/18 21:20 Dose: 8.8 mg A/P Acute on Chronic Hypoxic and Hypercapneic Respiratory Failure improving Acute COPD Exacerbation resolved Morbid Obesity Obstructive Sleep Apnea/Obesity Hypoventilation Syndrome Suspect Right Heart Failure improving Volume Overload improving Mediastinal Lymphadenopathy Atrial Fibrillation with RVR Cellulitis treated Acute Kidney Injury Alcohol Abuse - rate control - continue anticoagulation - prednisone taper - inhaled bronchodilators PRN - completed antibiotics - lasix as needed - monitor urine output, creatinine - O2 to keep Spo2 >90% - rehab/PT - DVT/GI prophylaxis
--- NOTE | 2018-12-18 15:01 | PN ---
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, Physician Chief Complaint: Pt, with mother at bedside, says she worked a little with physical therapist today, but is impatient, and wants to regain full functions. Knows the date and persons around her, but talks about conversinvg with a famous () woman stars coordinator, and holds money in her hand to give to "Luz", the star. History of Present Illness: 53 YO white woman with h/o COPD (placed on steroid course 2 days ago without relief) acute/chronic alcoholism (several glasses of rum daily), long-term cigarette smoker, sleep apnea, morbid obesity, DM, HTN, hyperlipidemia, chronic erythema of LEs with hx cellulitis, metabolic syndrome, who is now admitted with SOB and wheezing similar to her prior COPD exacerbation. She additionally notes awakening in the middle of the night last night with visual hallucinations. She additionally notes abdominal swelling recently, believes she has an abdominal infection but does not know what kind. Denies h/o heart arrhythmia. She has noticed her lips are more blue than normal. - Current Medication List Current Medications: Active Medications Albuterol Sulfate (Ventolin 0.083% Nebulizer Soln -) 1 amp NEB Q6H PRN PRN Reason: SHORT OF BREATH/WHEEZING Apixaban (Eliquis -) 5 mg PO BID [facility] Last Admin: 12/18/18 09:37 Dose: 5 mg Docusate Sodium (Colace -) 100 mg PO DAILY [facility] Last Admin: 12/18/18 09:37 Dose: 100 mg Insulin Aspart (Novolog Vial Sliding Scale -) 1 vial SQ [facility]; Protocol Last Admin: 12/18/18 12:12 Dose: 4 units Insulin Detemir (Levemir Vial) 8 units SQ HS [facility] Last Admin: 12/17/18 21:20 Dose: 8 units Ipratropium [place] (Atrovent 0.02% Nebulizer -) 1 amp NEB RQID [facility] Last Admin: 12/18/18 11:18 Dose: 1 amp Lisinopril (Prinivil) 10 mg PO DAILY [facility] Last Admin: 12/18/18 09:37 Dose: 10 mg Metoprolol Tartrate (Lopressor -) 50 mg PO BID [facility] Last Admin: 12/18/18 09:37 Dose: 50 mg Metoprolol Tartrate (Lopressor Injection -) 5 mg IVPUSH Q4H PRN PRN Reason: HR >120 Polyethylene Glycol (Miralax (For Daily Use) -) 17 gm PO BID [facility] Last Admin: 12/18/18 09:36 Dose: 17 gm Prednisone (Deltasone -) 40 mg PO DAILY [facility] Last Admin: 12/18/18 09:36 Dose: 40 mg Rosuvastatin Calcium (Crestor -) 40 mg PO [facility] Last Admin: 12/17/18 21:21 Dose: 40 mg Saliva Substitute (Mouthkote Solution -) 1 applic MM Q2H PRN PRN Reason: COUGH Senna (Senna Oral Solution -) 8.8 mg PO [facility] Last Admin: 12/17/18 21:20 Dose: 8.8 mg - Objective Vital Signs: Vital Signs Temperature 98.2 F 12/18/18 14:00 Pulse Rate 83 12/18/18 14:00 Respiratory Rate 20 12/18/18 09:00 Blood Pressure 117/72 12/18/18 14:00 O2 Sat by Pulse Oximetry (%) 96 12/18/18 09:00 Constitutional: Yes: Anxious Eyes: Yes: WNL HENT: Yes: WNL Neck: Yes: WNL Cardiovascular: Yes: Pulse Irregular, S1 (varies in intensity), S2 Respiratory: Yes: Diminished, On Nasal O2 Gastrointestinal: Yes: Soft, Abdomen, Obese ...Rectal Exam: Yes: Deferred Genitourinary: Yes: Anuria Breast(s): Yes: WNL Musculoskeletal: Yes: Muscle Weakness Extremities: Yes: Cool Edema: No Peripheral Pulses WNL: Yes Integumentary: Yes: Other Neurological: Yes: Alert, Confusion (alcoholism), Weakness Psychiatric: Yes: Other Labs: CBC, BMP 12/18/18 05:30 12/18/18 05:30 INR, PTT INR 1.13 (0.83-1.09) H 11/23/18 16:40 Abnormal Lab Results 12/18/18 12/18/18 05:30 05:30 MCV 96.1 H Plt Count 103 L Anion Gap 7 L BUN 42 H Random Glucose 124 H Alkaline Phosphatase 136 H Total Protein 5.6 L Albumin 2.4 L Problem List - Problems (1) Atrial flutter Assessment/Plan: On metoprolol tartrate PO bid for HR control (pt reportedly sometimes refuses to take PO; on IVP prn). On digoxin 0.125 mg daily; keep level 0.5-1.0 (presently reduced from 1.59 to 0.76-->0.79 several days later. On apixaban for anticoagulation. ECHO: normal LVEF; moderate LVH. Code(s): I48.92 - UNSPECIFIED ATRIAL FLUTTER Qualifiers: Atrial flutter type: unspecified Qualified Code(s): I48.92 - Unspecified atrial flutter (2) HTN (hypertension) Assessment/Plan: Off pressors; BP now more consistently elevated. On metoprolol tartrate PO bid, but pt sometimes refuses it (also on metoprolol IVP prn). Improving renal status: enalapril 1.25 mg q6h IVPB. F/u ECHO for LVEF, wall thickness, chamber sizes, valve status when able to position pt for better windows (will attempt again 12/17/18 now that pt is more alert and cooperative, not intubated) . Consider MUGA if unable to obtain LVEF from ECHO. Code(s): I10 - ESSENTIAL (PRIMARY) HYPERTENSION (3) Diabetes Assessment/Plan: on Levemir, Novolog. On lisinopril. Aggressive lipid control: started statin. Code(s): E11.9 - TYPE 2 DIABETES MELLITUS WITHOUT COMPLICATIONS (4) [place] cardiac risk >20% in next 10 years Assessment/Plan: TNI negative x 2. BP and glucose control. Keep LDL cholesterol < 70 mg/dL. Smoking cessation. Dietary consult; weight loss. Exercise will be important in the future. Coronary artery evaluation when stable (stress MIBI and/or coronary angiogram). Pt says today that she was scheduled for stress test recently, but "then I got sick". Code(s): Z91.89 - OTH PERSONAL RISK FACTORS, NOT ELSEWHERE CLASSIFIED (5) Alcoholism Assessment/Plan: On Vit B12 and Folate Code(s): F10.20 - ALCOHOL DEPENDENCE, UNCOMPLICATED (6) Ascites Code(s): R18.8 - OTHER ASCITES (7) Interstitial lung disease Assessment/Plan: Moderate pulmonary HTN and RV hypokinesis. TRINH. O2, bronchodilators, steroids per pumonologist. Code(s): J84.9 - INTERSTITIAL PULMONARY DISEASE, UNSPECIFIED (8) CHF (congestive heart failure) Assessment/Plan: Elevated BNP. F/u BUN/Cr, electrolytes, daily weight, IS and Os,. EcHO: normal LVEF; moderate LVH; mild TR, AR; trace-mild MR. Present control of AF/flutter HR with metoprolol and digoxin (discontinue digoxin if HR remains well-controlled). On lisinopril (HTN; CHF; DM). Code(s): I50.9 - HEART FAILURE, UNSPECIFIED (9) Renal dysfunction Assessment/Plan: improving status; f/u Is and Os, BUN/Cr. Code(s): N28.9 - DISORDER OF KIDNEY AND URETER, UNSPECIFIED (10) Respiratory failure Assessment/Plan: ISLD. TRINH Improving; f/u with pulmonoogist. Code(s): J96.90 - RESPIRATORY FAILURE, UNSP, UNSP W HYPOXIA OR HYPERCAPNIA (11) Sleep apnea Code(s): G47.30 - SLEEP APNEA, UNSPECIFIED (12) Hyperlipidemia Assessment/Plan: LDL cholesterol 108/ HDL 31; trigly 151 mg/dL. LFTs have markedly improved; now WNL. On rosuvastatin high-dose. Code(s): E78.5 - HYPERLIPIDEMIA, UNSPECIFIED (13) Hypomagnesemia Assessment/Plan: Repeated: now 2.4 (keep 2-2.4). Keep K+ 4-4.5. Keep PO4 2.5-4.9. Now on ACEI. Code(s): E83.42 - HYPOMAGNESEMIA
--- NOTE | 2018-12-18 15:04 | PN ---
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, Physician History of Present Illness: Pt seen and examined at bedside. She is now in the medical hernandez. She remains confused. - Current Medication List Current Medications: Active Medications Albuterol Sulfate (Ventolin 0.083% Nebulizer Soln -) 1 amp NEB Q6H PRN PRN Reason: SHORT OF BREATH/WHEEZING Apixaban (Eliquis -) 5 mg PO BID [facility] Last Admin: 12/18/18 09:37 Dose: 5 mg Docusate Sodium (Colace -) 100 mg PO DAILY [facility] Last Admin: 12/18/18 09:37 Dose: 100 mg Insulin Aspart (Novolog Vial Sliding Scale -) 1 vial SQ [facility]; Protocol Last Admin: 12/18/18 12:12 Dose: 4 units Insulin Detemir (Levemir Vial) 8 units SQ [facility] Last Admin: 12/17/18 21:20 Dose: 8 units Ipratropium [place] (Atrovent 0.02% Nebulizer -) 1 amp NEB RQID [facility] Last Admin: 12/18/18 11:18 Dose: 1 amp Lisinopril (Prinivil) 10 mg PO DAILY [facility] Last Admin: 12/18/18 09:37 Dose: 10 mg Metoprolol Tartrate (Lopressor -) 50 mg PO BID [facility] Last Admin: 12/18/18 09:37 Dose: 50 mg Metoprolol Tartrate (Lopressor Injection -) 5 mg IVPUSH Q4H PRN PRN Reason: HR >120 Polyethylene Glycol (Miralax (For Daily Use) -) 17 gm PO BID [facility] Last Admin: 12/18/18 09:36 Dose: 17 gm Prednisone (Deltasone -) 40 mg PO DAILY [facility] Last Admin: 12/18/18 09:36 Dose: 40 mg Rosuvastatin Calcium (Crestor -) 40 mg PO [facility] Last Admin: 12/17/18 21:21 Dose: 40 mg Saliva Substitute (Mouthkote Solution -) 1 applic MM Q2H PRN PRN Reason: COUGH Senna (Senna Oral Solution -) 8.8 mg PO [facility] Last Admin: 12/17/18 21:20 Dose: 8.8 mg - Objective Vital Signs: Vital Signs Temperature 98.2 F 12/18/18 14:00 Pulse Rate 83 12/18/18 14:00 Respiratory Rate 20 12/18/18 09:00 Blood Pressure 117/72 12/18/18 14:00 O2 Sat by Pulse Oximetry (%) 96 12/18/18 09:00 Constitutional: Yes: Calm Eyes: Yes: Conjunctiva Clear HENT: Yes: Atraumatic Cardiovascular: Yes: S1, S2 Respiratory: Yes: On Nasal O2 Gastrointestinal: Yes: Soft, Abdomen, Obese Genitourinary: Yes: Incontinence Musculoskeletal: Yes: Muscle Weakness Edema: Yes Edema: LLE: Trace, RLE: Trace Neurological: Yes: Confusion Labs: CBC, BMP 12/18/18 05:30 12/18/18 05:30 INR, PTT INR 1.13 (0.83-1.09) H 11/23/18 16:40 Problem List - Problems (1) Hyperkalemia Code(s): E87.5 - HYPERKALEMIA (2) Acute on chronic respiratory failure with hypoxia and hypercapnia Code(s): J96.21 - ACUTE AND CHRONIC RESPIRATORY FAILURE WITH HYPOXIA; J96.22 - ACUTE AND CHRONIC RESPIRATORY FAILURE WITH HYPERCAPNIA (3) Acute renal failure Code(s): N17.9 - ACUTE KIDNEY FAILURE, UNSPECIFIED (4) Alcoholism Code(s): F10.20 - ALCOHOL DEPENDENCE, UNCOMPLICATED (5) Atrial flutter Code(s): I48.92 - UNSPECIFIED ATRIAL FLUTTER Qualifiers: Atrial flutter type: unspecified Qualified Code(s): I48.92 - Unspecified atrial flutter (6) Bilateral lower extremity edema Code(s): R60.0 - LOCALIZED EDEMA (7) COPD exacerbation Code(s): J44.1 - CHRONIC OBSTRUCTIVE PULMONARY DISEASE W (ACUTE) EXACERBATION Assessment/Plan Current Medications Generic Name Dose Route Start Last Admin Trade Name Freq PRN Reason Stop Dose Admin Albuterol Sulfate 1 amp 12/17/18 16:52 Ventolin 0.083% Nebulizer Soln - NEB Q6H PRN SHORT OF BREATH/WHEEZING Apixaban 5 mg 12/15/18 16:15 12/18/18 09:37 Eliquis - PO 5 mg BID [facility] Administration Docusate Sodium 100 mg 12/18/18 10:00 12/18/18 09:37 Colace - PO 100 mg DAILY [facility] Administration Insulin Aspart 1 vial 12/17/18 22:00 12/18/18 12:12 Novolog Vial Sliding Scale - SQ 4 units ACHS [facility] Administration Protocol Insulin Detemir 8 units 12/17/18 22:00 12/17/18 21:20 Levemir Vial SQ 8 units HS [facility] Administration Ipratropium [place] 1 amp 12/17/18 20:00 12/18/18 11:18 Atrovent 0.02% Nebulizer - NEB 1 amp RQID [facility] Administration Lisinopril 10 mg 12/18/18 10:00 12/18/18 09:37 Prinivil PO 10 mg DAILY [facility] Administration Metoprolol Tartrate 50 mg 12/17/18 14:20 12/18/18 09:37 Lopressor - PO 50 mg BID [facility] Administration Metoprolol Tartrate 5 mg 12/17/18 16:52 Lopressor Injection - IVPUSH Q4H PRN HR >120 Polyethylene Glycol 17 gm 12/16/18 22:00 12/18/18 09:36 Miralax (For Daily Use) - PO 17 gm BID [facility] Administration Prednisone 40 mg 12/18/18 10:00 12/18/18 09:36 Deltasone - PO 40 mg DAILY [facility] Administration Rosuvastatin Calcium 40 mg 12/16/18 22:00 12/17/18 21:21 Crestor - PO 40 mg HS [facility] Administration Saliva Substitute 1 applic 12/17/18 16:52 Mouthkote Solution - MM Q2H PRN COUGH Senna 8.8 mg 12/17/18 22:00 12/17/18 21:20 Senna Oral Solution - PO 8.8 mg HS [facility] Administration Impression 1. PITO 2. hyperkalemia 3. a-flutter 4. resp failure requiring bipap 5. DM 6. HTN 7. active smoker 8. etoh abuse 9. obesity 10. interstitial lung disease on CT scan 11. resp acidosis 12. COPD 13. positive pr3 14. hypernatremia Plan - family to decide on biopsy, pt unable to make decision - rheum follow up - repeat labs in am - renal function is improving - follow up speech and swallow - pt has been off of aspirin
[2018-12-18] MEDS ORDERED: PT OWN MED DRAWER 7, Y5N ONE (21:19)
[2018-12-18] MEDS: INSULIN (LEVEMIR) 100 UNITS/ML UNITS SQ SCH (21:46)
[2018-12-18] MEDS: SENNOSIDES 8.8 MG/5 ML BULK BOTTLE PO SCH (21:48)
[2018-12-18] MEDS: ROSUVASTATIN CA 20 MG TABLET (FP) PO SCH (21:49)
[2018-12-19] MEDS: INSULIN SLIDING SCALE (NOVOLOG) 1 VIAL SQ SCH ×4 (06:21→21:10)
[2018-12-19] MEDS: IPRATROPIUM BR 0.02% 0.5 MG/2.5 ML VIAL.NEB. NEB SCH ×4 (08:38→21:10)
[2018-12-19] MEDS: predniSONE 20 MG TABLET (UD) PO SCH (10:43)
[2018-12-19] MEDS: POLYETHYLENE GLYCOL 3350 119 GM BTL PO SCH ×2 (10:43→21:04)
[2018-12-19] MEDS: METOPROLOL TARTRATE 25 MG TABLET (FP) PO SCH ×2 (10:43→21:05)
[2018-12-19] MEDS: APIXABAN 5 MG TABLET PO SCH ×2 (10:43→21:05)
[2018-12-19] MEDS: DOCUSATE SODIUM 100 MG CAPSULE (FP) PO SCH (10:44)
[2018-12-19] MEDS: LISINOPRIL 10 MG TABLET (FP) PO SCH (10:44)
--- NOTE | 2018-12-19 11:06 | PN ---
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, Physician History of Present Illness: pulmonary alert,comfortable,-resp distress,o2 sat 98% on nasal cannula - Current Medication List Current Medications: Active Medications Albuterol Sulfate (Ventolin 0.083% Nebulizer Soln -) 1 amp NEB Q6H PRN PRN Reason: SHORT OF BREATH/WHEEZING Apixaban (Eliquis -) 5 mg PO BID [facility] Last Admin: 12/19/18 10:43 Dose: 5 mg Docusate Sodium (Colace -) 100 mg PO DAILY [facility] Last Admin: 12/19/18 10:44 Dose: 100 mg Insulin Aspart (Novolog Vial Sliding Scale -) [address] [facility]; Protocol Last Admin: 12/19/18 06:21 Dose: Not Given Insulin Detemir (Levemir Vial) 8 units SQ [facility] Last Admin: 12/18/18 21:46 Dose: Not Given Ipratropium [place] (Atrovent 0.02% Nebulizer -) 1 amp NEB RQID [facility] Last Admin: 12/19/18 08:38 Dose: 1 amp Lisinopril (Prinivil) 10 mg PO DAILY [facility] Last Admin: 12/19/18 10:44 Dose: 10 mg Metoprolol Tartrate (Lopressor -) 50 mg PO BID [facility] Last Admin: 12/19/18 10:43 Dose: 50 mg Metoprolol Tartrate (Lopressor Injection -) 5 mg IVPUSH Q4H PRN PRN Reason: HR >120 Polyethylene Glycol (Miralax (For Daily Use) -) 17 gm PO BID [facility] Last Admin: 12/19/18 10:43 Dose: 17 gm Prednisone (Deltasone -) 40 mg PO DAILY [facility] Last Admin: 12/19/18 10:43 Dose: 40 mg Rosuvastatin Calcium (Crestor -) 40 mg PO [facility] Last Admin: 12/18/18 21:49 Dose: 40 mg Saliva Substitute (Mouthkote Solution -) 1 applic MM Q2H PRN PRN Reason: COUGH Senna (Senna Oral Solution -) 8.8 mg PO [facility] Last Admin: 12/18/18 21:48 Dose: 8.8 mg - Objective Vital Signs: Vital Signs Temperature 98 F 12/19/18 10:00 Pulse Rate 60 12/19/18 10:00 Respiratory Rate 18 12/19/18 10:00 Blood Pressure 111/58 L 12/19/18 10:00 O2 Sat by Pulse Oximetry (%) 96 12/18/18 09:00 Constitutional: Yes: Well Nourished, Calm Eyes: Yes: WNL HENT: Yes: WNL Neck: Yes: WNL Cardiovascular: Yes: Regular Rate and Rhythm Respiratory: Yes: Diminished Gastrointestinal: Yes: Normal Bowel Sounds, Soft Extremities: Yes: WNL Edema: Yes Problem List - Problems (1) Acute on chronic respiratory failure with hypoxia and hypercapnia Code(s): J96.21 - ACUTE AND CHRONIC RESPIRATORY FAILURE WITH HYPOXIA; J96.22 - ACUTE AND CHRONIC RESPIRATORY FAILURE WITH HYPERCAPNIA (2) COPD exacerbation Code(s): J44.1 - CHRONIC OBSTRUCTIVE PULMONARY DISEASE W (ACUTE) EXACERBATION (3) Atrial flutter Code(s): I48.92 - UNSPECIFIED ATRIAL FLUTTER Qualifiers: Atrial flutter type: unspecified Qualified Code(s): I48.92 - Unspecified atrial flutter (4) Bilateral lower extremity edema Code(s): R60.0 - LOCALIZED EDEMA (5) COPD exacerbation Code(s): J44.1 - CHRONIC OBSTRUCTIVE PULMONARY DISEASE W (ACUTE) EXACERBATION (6) Cellulitis Code(s): L03.90 - CELLULITIS, UNSPECIFIED (7) Diabetes Code(s): E11.9 - TYPE 2 DIABETES MELLITUS WITHOUT COMPLICATIONS (8) Elevated LFTs Code(s): R94.5 - ABNORMAL RESULTS OF LIVER FUNCTION STUDIES (9) HTN (hypertension) Code(s): I10 - ESSENTIAL (PRIMARY) HYPERTENSION (10) Hyperlipidemia Code(s): E78.5 - HYPERLIPIDEMIA, UNSPECIFIED (11) Morbid obesity Code(s): E66.01 - MORBID (SEVERE) OBESITY DUE TO EXCESS CALORIES (12) New onset atrial flutter Code(s): I48.92 - UNSPECIFIED ATRIAL FLUTTER Assessment/Plan A/P Acute on Chronic Hypoxic and Hypercapneic Respiratory Failure improving Acute COPD Exacerbation resolved Morbid Obesity Obstructive Sleep Apnea/Obesity Hypoventilation Syndrome Suspect Right Heart Failure improving Volume Overload improving Mediastinal Lymphadenopathy Atrial Fibrillation with RVR Cellulitis treated Acute Kidney Injury Alcohol Abuse - rate control - continue anticoagulation - prednisone taper - inhaled bronchodilators PRN - lasix as needed - monitor urine output, creatinine - O2 to keep Spo2 >90% - rehab/PT - DVT/GI prophylaxis - short term pulmonary rehab DR MCCAULEY
--- NOTE | 2018-12-19 11:37 | PN ---
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 (short form) - Note 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: pt seen/ examined chart reviewed alert/ awake. Vital Signs Temp 98 F 12/19/18 10:00 Pulse 60 12/19/18 10:00 Resp 18 12/19/18 10:00 BP 111/58 L 12/19/18 10:00 Pulse Ox 96 12/18/18 09:00 Intake & Output 12/18/18 12/18/18 12/19/18 11:59 23:59 11:59 Intake Total 120 240 Balance 120 240 Weight 245 lb 12.8 oz Intake: Oral 120 240 Other: Voiding Method Diaper Diaper # Unmeasured Voids Void 1 1 1 Bowel Movement Yes Yes: smear # Bowel Movements 1 1 1 Weight Measurement Method Patient Lift Scale Active Medications Albuterol Sulfate (Ventolin 0.083% Nebulizer Soln -) 1 amp NEB Q6H PRN PRN Reason: SHORT OF BREATH/WHEEZING Apixaban (Eliquis -) 5 mg PO BID [facility] Last Admin: 12/19/18 10:43 Dose: 5 mg Docusate Sodium (Colace -) 100 mg PO DAILY [facility] Last Admin: 12/19/18 10:44 Dose: 100 mg Insulin Aspart (Novolog Vial Sliding Scale -) 1 vial SQ [facility]; Protocol Last Admin: 12/19/18 06:21 Dose: Not Given Insulin Detemir (Levemir Vial) 8 units SQ HS [facility] Last Admin: 12/18/18 21:46 Dose: Not Given Ipratropium [place] (Atrovent 0.02% Nebulizer -) 1 amp NEB RQID [facility] Last Admin: 12/19/18 08:38 Dose: 1 amp Lisinopril (Prinivil) 10 mg PO DAILY [facility] Last Admin: 12/19/18 10:44 Dose: 10 mg Metoprolol Tartrate (Lopressor -) 50 mg PO BID [facility] Last Admin: 12/19/18 10:43 Dose: 50 mg Metoprolol Tartrate (Lopressor Injection -) 5 mg IVPUSH Q4H PRN PRN Reason: HR >120 Polyethylene Glycol (Miralax (For Daily Use) -) 17 gm PO BID [facility] Last Admin: 12/19/18 10:43 Dose: 17 gm Prednisone (Deltasone -) 40 mg PO DAILY [facility] Last Admin: 12/19/18 10:43 Dose: 40 mg Rosuvastatin Calcium (Crestor -) 40 mg PO [facility] Last Admin: 12/18/18 21:49 Dose: 40 mg Saliva Substitute (Mouthkote Solution -) 1 applic MM Q2H PRN PRN Reason: COUGH Senna (Senna Oral Solution -) 8.8 mg PO [facility] Last Admin: 12/18/18 21:48 Dose: 8.8 mg CBC, BMP 12/18/18 05:30 12/18/18 05:30 physical exam S1 S2 RRR Lungs decreased breath sounds Abd- soft, NT,obese, ND edema + alert and awake--- PLAN off antibiotics on PO prednisone continue with meds Pt will need STR-- spoke with spring encaser clinically improving significantly I also discussed with wood mechanist today----renal biopsy to be considered before discharge--he will be discussing with patient and patient's family Will need to hold--anticoagulant--- We will follow Problem List - Problems (1) Acute respiratory failure with hypoxia and hypercapnia Code(s): J96.01 - ACUTE RESPIRATORY FAILURE WITH HYPOXIA; J96.02 - ACUTE RESPIRATORY FAILURE WITH HYPERCAPNIA (2) Atrial flutter Code(s): I48.92 - UNSPECIFIED ATRIAL FLUTTER Qualifiers: Atrial flutter type: unspecified Qualified Code(s): I48.92 - Unspecified atrial flutter (3) Bilateral lower extremity edema Code(s): R60.0 - LOCALIZED EDEMA (4) Diabetes Code(s): E11.9 - TYPE 2 DIABETES MELLITUS WITHOUT COMPLICATIONS (5) Elevated LFTs Code(s): R94.5 - ABNORMAL RESULTS OF LIVER FUNCTION STUDIES (6) Hyperlipidemia Code(s): E78.5 - HYPERLIPIDEMIA, UNSPECIFIED (7) Morbid obesity Code(s): E66.01 - MORBID (SEVERE) OBESITY DUE TO EXCESS CALORIES (8) Acute renal failure Code(s): N17.9 - ACUTE KIDNEY FAILURE, UNSPECIFIED (9) Pulmonary hypertension Code(s): I27.20 - PULMONARY HYPERTENSION, UNSPECIFIED
--- NOTE | 2018-12-19 11:43 | EKG ---
Test Reason : Blood Pressure : / mmHG Vent. Rate : 060 BPM Atrial Rate : 060 BPM P-R Int : 146 ms QRS Dur : 084 ms QT Int : 386 ms P-R-T Axes : 044 093 230 degrees QTc Int : 386 ms NORMAL SINUS RHYTHM RIGHTWARD AXIS CANNOT RULE OUT INFERIOR INFARCT , AGE UNDETERMINED ABNORMAL ECG WHEN COMPARED WITH ECG OF 14-DEC-2018 09:24, SINUS RHYTHM HAS REPLACED ATRIAL FIBRILLATION NON-SPECIFIC CHANGE IN ST SEGMENT IN INFERIOR LEADS T WAVE INVERSION NOW EVIDENT IN INFERIOR LEADS NONSPECIFIC T WAVE ABNORMALITY HAS REPLACED INVERTED T WAVES IN ANTERIOR LEADS Confirmed by STEPHANIE TORRES, RACHELLE ([id number]) on 12/19/2018 11:43:04 AM [facility] Confirmed By:RACHELLE BROWN MD
--- NOTE | 2018-12-19 12:25 | PN ---
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, Physician History of Present Illness: Pt seen and examined at bedside. She is much more awake and alert. She denies shortness of breath. - Current Medication List Current Medications: Active Medications Albuterol Sulfate (Ventolin 0.083% Nebulizer Soln -) 1 amp NEB Q6H PRN PRN Reason: SHORT OF BREATH/WHEEZING Apixaban (Eliquis -) 5 mg PO BID [facility] Last Admin: 12/19/18 10:43 Dose: 5 mg Docusate Sodium (Colace -) 100 mg PO DAILY [facility] Last Admin: 12/19/18 10:44 Dose: 100 mg Insulin Aspart (Novolog Vial Sliding Scale -) 1 vial SQ [facility]; Protocol Last Admin: 12/19/18 12:16 Dose: 2 units Insulin Detemir (Levemir Vial) 8 units SQ [facility] Last Admin: 12/18/18 21:46 Dose: Not Given Ipratropium [place] (Atrovent 0.02% Nebulizer -) 1 amp NEB RQID [facility] Last Admin: 12/19/18 12:07 Dose: 1 amp Lisinopril (Prinivil) 10 mg PO DAILY [facility] Last Admin: 12/19/18 10:44 Dose: 10 mg Metoprolol Tartrate (Lopressor -) 50 mg PO BID [facility] Last Admin: 12/19/18 10:43 Dose: 50 mg Metoprolol Tartrate (Lopressor Injection -) 5 mg IVPUSH Q4H PRN PRN Reason: HR >120 Polyethylene Glycol (Miralax (For Daily Use) -) 17 gm PO BID [facility] Last Admin: 12/19/18 10:43 Dose: 17 gm Prednisone (Deltasone -) 40 mg PO DAILY [facility] Last Admin: 12/19/18 10:43 Dose: 40 mg Rosuvastatin Calcium (Crestor -) 40 mg PO [facility] Last Admin: 12/18/18 21:49 Dose: 40 mg Saliva Substitute (Mouthkote Solution -) 1 applic MM Q2H PRN PRN Reason: COUGH Senna (Senna Oral Solution -) 8.8 mg PO [facility] Last Admin: 12/18/18 21:48 Dose: 8.8 mg - Objective Vital Signs: Vital Signs Temperature 98 F 12/19/18 10:00 Pulse Rate 60 12/19/18 10:00 Respiratory Rate 18 12/19/18 10:00 Blood Pressure 111/58 L 12/19/18 10:00 O2 Sat by Pulse Oximetry (%) 96 12/18/18 09:00 Constitutional: Yes: Calm Eyes: Yes: Conjunctiva Clear HENT: Yes: Atraumatic Cardiovascular: Yes: S1, S2 Respiratory: Yes: On Nasal O2 Gastrointestinal: Yes: Soft Genitourinary: Yes: Incontinence Musculoskeletal: Yes: Muscle Weakness Edema: Yes Edema: LLE: Trace, RLE: Trace Neurological: Yes: Oriented Psychiatric: Yes: Oriented Labs: CBC, BMP 12/18/18 05:30 12/18/18 05:30 INR, PTT INR 1.13 (0.83-1.09) H 11/23/18 16:40 Problem List - Problems (1) Hyperkalemia Code(s): E87.5 - HYPERKALEMIA (2) Acute on chronic respiratory failure with hypoxia and hypercapnia Code(s): J96.21 - ACUTE AND CHRONIC RESPIRATORY FAILURE WITH HYPOXIA; J96.22 - ACUTE AND CHRONIC RESPIRATORY FAILURE WITH HYPERCAPNIA (3) Acute renal failure Code(s): N17.9 - ACUTE KIDNEY FAILURE, UNSPECIFIED (4) Alcoholism Code(s): F10.20 - ALCOHOL DEPENDENCE, UNCOMPLICATED (5) Atrial flutter Code(s): I48.92 - UNSPECIFIED ATRIAL FLUTTER Qualifiers: Atrial flutter type: unspecified Qualified Code(s): I48.92 - Unspecified atrial flutter (6) Bilateral lower extremity edema Code(s): R60.0 - LOCALIZED EDEMA (7) COPD exacerbation Code(s): J44.1 - CHRONIC OBSTRUCTIVE PULMONARY DISEASE W (ACUTE) EXACERBATION Assessment/Plan Current Medications Generic Name Dose Route Start Last Admin Trade Name Freq PRN Reason Stop Dose Admin Albuterol Sulfate 1 amp 12/17/18 16:52 Ventolin 0.083% Nebulizer Soln - NEB Q6H PRN SHORT OF BREATH/WHEEZING Apixaban 5 mg 12/15/18 16:15 12/19/18 10:43 Eliquis - PO 5 mg BID [facility] Administration Docusate Sodium 100 mg 12/18/18 10:00 12/19/18 10:44 Colace - PO 100 mg DAILY [facility] Administration Insulin Aspart 1 vial 12/17/18 22:00 12/19/18 12:16 Novolog Vial Sliding Scale - SQ 2 units ACHS [facility] Administration Protocol Insulin Detemir 8 units 12/17/18 22:00 12/18/18 21:46 Levemir Vial SQ Not Given HS [facility] Ipratropium [place] 1 amp 12/17/18 20:00 12/19/18 12:07 Atrovent 0.02% Nebulizer - NEB 1 amp RQID [facility] Administration Lisinopril 10 mg 12/18/18 10:00 12/19/18 10:44 Prinivil PO 10 mg DAILY [facility] Administration Metoprolol Tartrate 50 mg 12/17/18 14:20 12/19/18 10:43 Lopressor - PO 50 mg BID [facility] Administration Metoprolol Tartrate 5 mg 12/17/18 16:52 Lopressor Injection - IVPUSH Q4H PRN HR >120 Polyethylene Glycol 17 gm 12/16/18 22:00 12/19/18 10:43 Miralax (For Daily Use) - PO 17 gm BID [facility] Administration Prednisone 40 mg 12/18/18 10:00 12/19/18 10:43 Deltasone - PO 40 mg DAILY [facility] Administration Rosuvastatin Calcium 40 mg 12/16/18 22:00 12/18/18 21:49 Crestor - PO 40 mg HS [facility] Administration Saliva Substitute 1 applic 12/17/18 16:52 Mouthkote Solution - MM Q2H PRN COUGH Senna 8.8 mg 12/17/18 22:00 12/18/18 21:48 Senna Oral Solution - PO 8.8 mg HS [facility] Administration Impression 1. PITO 2. hyperkalemia 3. a-flutter 4. resp failure requiring bipap 5. DM 6. HTN 7. active smoker 8. etoh abuse 9. obesity 10. interstitial lung disease on CT scan 11. resp acidosis 12. COPD 13. positive pr3 14. hypernatremia Plan - had a long discussion with pt and her family, they are considering renal biopsy - pr3 was positive on 2 occasions, urine has blood - rheum follow up - cardiology follow up - will need to hold blood thinners if pt is going for biopsy - risk of stroke associated with blood thinners and risk of bleeding with biopsy clearly explained to pt and family
--- NOTE | 2018-12-19 14:31 | PN ---
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, TRIAGE ASSISTANT - Note 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: Selected Entries 12/17/18 12/17/18 12/17/18 00:00 02:00 06:00 Breakfast Supper Temperature 98.9 F 98.7 F 98.4 F 12/17/18 12/17/18 12/17/18 09:40 10:07 14:00 Breakfast 75% Supper Temperature 98.6 F 98.4 F 12/17/18 12/17/18 12/17/18 16:00 20:12 22:00 Breakfast Supper 50% Temperature 98 F 97.9 F 12/18/18 12/18/18 12/18/18 01:40 09:00 10:07 Breakfast 25% Supper Temperature 98.1 F 98 F Laboratory Tests 12/18/18 05:30 WBC 9.0 Selected Entries 12/19/18 12/19/18 12/19/18 01:00 05:00 10:00 Breakfast Lunch Temperature 97.4 F L 98.3 F 98 F 12/19/18 14:00 Breakfast 75% Lunch 50% Temperature 97.9 F Laboratory Tests 12/18/18 05:30 WBC 9.0 On soft/thin liquid.
[2018-12-19] MEDS ORDERED: INSULIN (NOVOLOG) ASPART 100 UNITS/ML 10ML VIAL ONE (20:49)
[2018-12-19] MEDS ORDERED: PT OWN MED DRAWER 7, Y5N ONE (20:50)
[2018-12-19] MEDS: ROSUVASTATIN CA 20 MG TABLET (FP) PO SCH (21:04)
[2018-12-19] MEDS: SENNOSIDES 8.8 MG/5 ML BULK BOTTLE PO SCH (21:05)
[2018-12-19] MEDS: INSULIN (LEVEMIR) 100 UNITS/ML UNITS SQ SCH (21:06)
[2018-12-20] MEDS: IPRATROPIUM BR 0.02% 0.5 MG/2.5 ML VIAL.NEB. NEB SCH ×4 (01:00→20:00)
[2018-12-20] MEDS: INSULIN SLIDING SCALE (NOVOLOG) 1 VIAL SQ SCH ×4 (06:29→21:12)
--- NOTE | 2018-12-20 11:19 | PN ---
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 (short form) - Note 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: awake and alert no pain , distress Vital Signs - 24 hr 12/19/18 12/19/18 12/19/18 14:00 21:00 22:00 Temperature 97.9 F 98.1 F Pulse Rate 54 L 55 L Respiratory 20 19 Rate Blood Pressure 108/65 121/69 O2 Sat by Pulse 98 98 Oximetry (%) 12/20/18 12/20/18 12/20/18 01:24 05:00 09:00 Temperature 98.3 F 97.9 F Pulse Rate 47 L 74 52 L Respiratory 18 18 18 Rate Blood Pressure 120/71 119/62 127/63 O2 Sat by Pulse 91 L Oximetry (%) Current Medications Generic Name Dose Route Start Last Admin Trade Name Freq PRN Reason Stop Dose Admin Albuterol Sulfate 1 amp 12/17/18 16:52 Ventolin 0.083% Nebulizer Soln - NEB Q6H PRN SHORT OF BREATH/WHEEZING Apixaban 5 mg 12/15/18 16:15 12/19/18 21:05 Eliquis - PO 5 mg BID [facility] Administration Docusate Sodium 100 mg 12/18/18 10:00 12/19/18 10:44 Colace - PO 100 mg DAILY [facility] Administration Insulin Aspart 1 vial 12/17/18 22:00 12/20/18 06:29 Novolog Vial Sliding Scale - SQ Not Given ACHS [facility] Protocol Insulin Detemir 8 units 12/17/18 22:00 12/19/18 21:06 Levemir Vial SQ 8 units HS [facility] Administration Ipratropium [place] 1 amp 12/17/18 20:00 12/20/18 10:58 Atrovent 0.02% Nebulizer - NEB 1 amp RQID [facility] Administration Lisinopril 10 mg 12/18/18 10:00 12/19/18 10:44 Prinivil PO 10 mg DAILY [facility] Administration Metoprolol Tartrate 50 mg 12/17/18 14:20 12/19/18 21:05 Lopressor - PO 50 mg BID [facility] Administration Metoprolol Tartrate 5 mg 12/17/18 16:52 Lopressor Injection - IVPUSH Q4H PRN HR >120 Polyethylene Glycol 17 gm 12/16/18 22:00 12/19/18 21:04 Miralax (For Daily Use) - PO 17 gm BID [facility] Administration Prednisone 40 mg 12/18/18 10:00 12/19/18 10:43 Deltasone - PO 40 mg DAILY [facility] Administration Rosuvastatin Calcium 40 mg 12/16/18 22:00 12/19/18 21:04 Crestor - PO 40 mg HS [facility] Administration Saliva Substitute 1 applic 12/17/18 16:52 M[place] Solution - MM Q2H PRN COUGH Senna 8.8 mg 12/17/18 22:00 12/19/18 21:05 Senna Oral Solution - PO 8.8 mg HS [facility] Administration Laboratory Results - last 24 hr 12/17/18 12/17/18 12/17/18 17:18 17:20 21:11 POC Glucometer 315 357 244 12/18/18 12/18/18 12/18/18 05:23 11:41 16:38 POC Glucometer 140 161 207 12/18/18 12/19/18 12/19/18 21:45 05:39 12:15 POC Glucometer 143 108 148 12/19/18 12/19/18 12/20/18 16:54 20:57 05:54 POC Glucometer 285 270 79 S1 S2 RRR Lungs decreased breath sounds Abd- soft, NT,obese, ND edema + PLAN off antibiotics on PO prednisone continue with meds now planning for renal biopsy-- will need to dc anticoagulation-- place pt on Lovenox sc spoke with cardiology-- would have pt undergo a stress test prior to any procedures-- likely Saturday Pt will need STR-- spoke with major case detective clinically improving Problem List - Problems (1) Acute on chronic respiratory failure with hypoxia and hypercapnia Code(s): J96.21 - ACUTE AND CHRONIC RESPIRATORY FAILURE WITH HYPOXIA; J96.22 - ACUTE AND CHRONIC RESPIRATORY FAILURE WITH HYPERCAPNIA (2) Acute renal failure Code(s): N17.9 - ACUTE KIDNEY FAILURE, UNSPECIFIED (3) Acute respiratory failure with hypoxia and hypercapnia Code(s): J96.01 - ACUTE RESPIRATORY FAILURE WITH HYPOXIA; J96.02 - ACUTE RESPIRATORY FAILURE WITH HYPERCAPNIA (4) Alcoholism Code(s): F10.20 - ALCOHOL DEPENDENCE, UNCOMPLICATED (5) Atrial flutter Code(s): I48.92 - UNSPECIFIED ATRIAL FLUTTER Qualifiers: Atrial flutter type: unspecified Qualified Code(s): I48.92 - Unspecified atrial flutter (6) Bilateral lower extremity edema Code(s): R60.0 - LOCALIZED EDEMA
[2018-12-20] MEDS: DOCUSATE SODIUM 100 MG CAPSULE (FP) PO SCH (11:52)
[2018-12-20] MEDS: predniSONE 20 MG TABLET (UD) PO SCH (11:52)
[2018-12-20] MEDS: LISINOPRIL 10 MG TABLET (FP) PO SCH (11:52)
[2018-12-20] MEDS: POLYETHYLENE GLYCOL 3350 119 GM BTL PO SCH ×2 (11:52→21:20)
[2018-12-20] MEDS: METOPROLOL TARTRATE 25 MG TABLET (FP) PO SCH ×2 (11:52→21:13)
--- NOTE | 2018-12-20 13:14 | PN ---
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, Physician History of Present Illness: Pt seen and examined at bedside. She is awake and alert. We discussed kidney biopsy at length and she is not sure if she wants to do it. She still wants to discuss it with her family. - Current Medication List Current Medications: Active Medications Albuterol Sulfate (Ventolin 0.083% Nebulizer Soln -) 1 amp NEB Q6H PRN PRN Reason: SHORT OF BREATH/WHEEZING Docusate Sodium (Colace -) 100 mg PO DAILY [facility] Last Admin: 12/20/18 11:52 Dose: 100 mg Enoxaparin Sodium (Lovenox -) 120 mg SQ BID [facility] Insulin Aspart (Novolog Vial Sliding Scale -) 1 vial SQ [facility]; Protocol Last Admin: 12/20/18 12:40 Dose: Not Given Insulin Detemir (Levemir Vial) 8 units SQ [facility] Last Admin: 12/19/18 21:06 Dose: 8 units Ipratropium [place] (Atrovent 0.02% Nebulizer -) 1 amp NEB RQID [facility] Last Admin: 12/20/18 10:58 Dose: 1 amp Lisinopril (Prinivil) 10 mg PO DAILY [facility] Last Admin: 12/20/18 11:52 Dose: 10 mg Metoprolol Tartrate (Lopressor -) 50 mg PO BID [facility] Last Admin: 12/20/18 11:52 Dose: 50 mg Metoprolol Tartrate (Lopressor Injection -) 5 mg IVPUSH Q4H PRN PRN Reason: HR >120 Polyethylene Glycol (Miralax (For Daily Use) -) 17 gm PO BID [facility] Last Admin: 12/20/18 11:52 Dose: 17 gm Prednisone (Deltasone -) 40 mg PO DAILY [facility] Last Admin: 12/20/18 11:52 Dose: 40 mg Rosuvastatin Calcium (Crestor -) 40 mg PO [facility] Last Admin: 12/19/18 21:04 Dose: 40 mg Saliva Substitute (Mouthkote Solution -) 1 applic MM Q2H PRN PRN Reason: COUGH Senna (Senna Oral Solution -) 8.8 mg PO [facility] Last Admin: 12/19/18 21:05 Dose: 8.8 mg - Objective Vital Signs: Vital Signs Temperature 97.9 F 12/20/18 05:00 Pulse Rate 52 L 12/20/18 09:00 Respiratory Rate 18 12/20/18 09:00 Blood Pressure 127/63 12/20/18 09:00 O2 Sat by Pulse Oximetry (%) 91 L 12/20/18 09:00 Constitutional: Yes: Calm Eyes: Yes: Conjunctiva Clear HENT: Yes: Atraumatic Cardiovascular: Yes: S1, S2 Respiratory: Yes: On Nasal O2, Rales Gastrointestinal: Yes: Soft, Abdomen, Obese Genitourinary: Yes: WNL Musculoskeletal: Yes: Muscle Weakness Edema: Yes Edema: LLE: Trace, RLE: Trace Neurological: Yes: Oriented Psychiatric: Yes: Oriented Labs: CBC, BMP 12/18/18 05:30 12/18/18 05:30 INR, PTT INR 1.13 (0.83-1.09) H 11/23/18 16:40 Problem List - Problems (1) Hyperkalemia Code(s): E87.5 - HYPERKALEMIA (2) Acute on chronic respiratory failure with hypoxia and hypercapnia Code(s): J96.21 - ACUTE AND CHRONIC RESPIRATORY FAILURE WITH HYPOXIA; J96.22 - ACUTE AND CHRONIC RESPIRATORY FAILURE WITH HYPERCAPNIA (3) Acute renal failure Code(s): N17.9 - ACUTE KIDNEY FAILURE, UNSPECIFIED (4) Alcoholism Code(s): F10.20 - ALCOHOL DEPENDENCE, UNCOMPLICATED (5) Atrial flutter Code(s): I48.92 - UNSPECIFIED ATRIAL FLUTTER Qualifiers: Atrial flutter type: unspecified Qualified Code(s): I48.92 - Unspecified atrial flutter (6) Bilateral lower extremity edema Code(s): R60.0 - LOCALIZED EDEMA (7) COPD exacerbation Code(s): J44.1 - CHRONIC OBSTRUCTIVE PULMONARY DISEASE W (ACUTE) EXACERBATION Assessment/Plan Current Medications Generic Name Dose Route Start Last Admin Trade Name Freq PRN Reason Stop Dose Admin Albuterol Sulfate 1 amp 12/17/18 16:52 Ventolin 0.083% Nebulizer Soln - NEB Q6H PRN SHORT OF BREATH/WHEEZING Docusate Sodium 100 mg 12/18/18 10:00 12/20/18 11:52 Colace - PO 100 mg DAILY [facility] Administration Enoxaparin Sodium 120 mg 12/20/18 20:00 Lovenox - SQ BID [facility] Insulin Aspart 1 vial 12/17/18 22:00 12/20/18 12:40 Novolog Vial Sliding Scale - SQ Not Given ACHS [facility] Protocol Insulin Detemir 8 units 12/17/18 22:00 12/19/18 21:06 Levemir Vial SQ 8 units HS [facility] Administration Ipratropium [place] 1 amp 12/17/18 20:00 12/20/18 10:58 Atrovent 0.02% Nebulizer - NEB 1 amp RQID [facility] Administration Lisinopril 10 mg 12/18/18 10:00 12/20/18 11:52 Prinivil PO 10 mg DAILY [facility] Administration Metoprolol Tartrate 50 mg 12/17/18 14:20 12/20/18 11:52 Lopressor - PO 50 mg BID [facility] Administration Metoprolol Tartrate 5 mg 12/17/18 16:52 Lopressor Injection - IVPUSH Q4H PRN HR >120 Polyethylene Glycol 17 gm 12/16/18 22:00 12/20/18 11:52 Miralax (For Daily Use) - PO 17 gm BID [facility] Administration Prednisone 40 mg 12/18/18 10:00 12/20/18 11:52 Deltasone - PO 40 mg DAILY [facility] Administration Rosuvastatin Calcium 40 mg 12/16/18 22:00 12/19/18 21:04 Crestor - PO 40 mg HS [facility] Administration Saliva Substitute 1 applic 12/17/18 16:52 M[place] Solution - MM Q2H PRN COUGH Senna 8.8 mg 12/17/18 22:00 12/19/18 21:05 Senna Oral Solution - PO 8.8 mg HS [facility] Administration Impression 1. PITO 2. hyperkalemia 3. a-flutter 4. resp failure requiring bipap 5. DM 6. HTN 7. active smoker 8. etoh abuse 9. obesity 10. interstitial lung disease on CT scan 11. resp acidosis 12. COPD 13. positive pr3 14. hypernatremia Plan - monitor renal function - will repeat anca - discussed plan with pt at length - repeat ua - will follow - recall rheum for follow up - will need close follow up after discharge
--- NOTE | 2018-12-20 14:53 | PN ---
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 (short form) - Note 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: PULMONARY Denies shortness of breath or chest pain. Vital Signs Period Temp Pulse Resp BP Sys/Gregorio Pulse Ox Last 24 Hr 97.9 F-98.3 F 47-74 18-19 119-127/62-71 91-98 Gen: NAD at rest Heart: RRR Lung: decreased breath sounds at the bases Abd: soft, nontender Ext: less edema CBC, BMP 12/18/18 05:30 12/18/18 05:30 Active Medications Albuterol Sulfate (Ventolin 0.083% Nebulizer Soln -) 1 amp NEB Q6H PRN PRN Reason: SHORT OF BREATH/WHEEZING Docusate Sodium (Colace -) 100 mg PO DAILY [facility] Last Admin: 12/20/18 11:52 Dose: 100 mg Enoxaparin Sodium (Lovenox -) 120 mg SQ BID [facility] Insulin Aspart (Novolog Vial Sliding Scale -) 1 vial SQ [facility]; Protocol Last Admin: 12/20/18 12:40 Dose: Not Given Insulin Detemir (Levemir Vial) [address] [facility] Last Admin: 12/19/18 21:06 Dose: 8 units Ipratropium [place] (Atrovent 0.02% Nebulizer -) 1 amp NEB RQID [facility] Last Admin: 12/20/18 10:58 Dose: 1 amp Lisinopril (Prinivil) 10 mg PO DAILY [facility] Last Admin: 12/20/18 11:52 Dose: 10 mg Metoprolol Tartrate (Lopressor -) 50 mg PO BID [facility] Last Admin: 12/20/18 11:52 Dose: 50 mg Metoprolol Tartrate (Lopressor Injection -) 5 mg IVPUSH Q4H PRN PRN Reason: HR >120 Polyethylene Glycol (Miralax (For Daily Use) -) 17 gm PO BID [facility] Last Admin: 12/20/18 11:52 Dose: 17 gm Prednisone (Deltasone -) 40 mg PO DAILY [facility] Last Admin: 12/20/18 11:52 Dose: 40 mg Rosuvastatin Calcium (Crestor -) 40 mg PO [facility] Last Admin: 12/19/18 21:04 Dose: 40 mg Saliva Substitute (Mouthkote Solution -) 1 applic MM Q2H PRN PRN Reason: COUGH Senna (Senna Oral Solution -) 8.8 mg PO [facility] Last Admin: 12/19/18 21:05 Dose: 8.8 mg A/P Acute on Chronic Hypoxic and Hypercapneic Respiratory Failure improving Acute COPD Exacerbation resolved Morbid Obesity Obstructive Sleep Apnea/Obesity Hypoventilation Syndrome Suspect Right Heart Failure improving Volume Overload improving Mediastinal Lymphadenopathy Atrial Fibrillation with RVR Cellulitis treated Acute Kidney Injury Alcohol Abuse - rate control - continue anticoagulation - will decrease medrol - inhaled bronchodilators PRN - completed antibiotics - lasix as needed - monitor urine output, creatinine - O2 to keep Spo2 >90% - rehab/PT - DVT/GI prophylaxis
[2018-12-20] MEDS: INSULIN (LEVEMIR) 100 UNITS/ML UNITS SQ SCH (21:10)
[2018-12-20] MEDS: ROSUVASTATIN CA 20 MG TABLET (FP) PO SCH (21:13)
[2018-12-20] MEDS: ENOXAPARIN NA (PORCINE) 120 MG/0.8 ML DISP.SYRIN SQ SCH (21:13)
[2018-12-20] MEDS: SENNOSIDES 8.8 MG/5 ML BULK BOTTLE PO SCH (21:22)
--- NOTE | 2018-12-20 23:26 | PN ---
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, Physician Chief Complaint: Pt, alert. Her sister is at bedside, and has questions regarding plans for sister (renal biopsy). History of Present Illness: 53 YO white woman with h/o COPD (placed on steroid course 2 days ago without relief) acute/chronic alcoholism (several glasses of rum daily), long-term cigarette smoker, sleep apnea, morbid obesity, DM, HTN, hyperlipidemia, chronic erythema of LEs with hx cellulitis, metabolic syndrome, who is now admitted with SOB and wheezing similar to her prior COPD exacerbation. She additionally notes awakening in the middle of the night last night with visual hallucinations. She additionally notes abdominal swelling recently, believes she has an abdominal infection but does not know what kind. Denies h/o heart arrhythmia. She has noticed her lips are more blue than normal. - Current Medication List Current Medications: Active Medications Albuterol Sulfate (Ventolin 0.083% Nebulizer Soln -) 1 amp NEB Q6H PRN PRN Reason: SHORT OF BREATH/WHEEZING Docusate Sodium (Colace -) 100 mg PO DAILY [facility] Last Admin: 12/20/18 11:52 Dose: 100 mg Enoxaparin Sodium (Lovenox -) 120 mg SQ BID [facility] Last Admin: 12/20/18 21:13 Dose: 120 mg Insulin Aspart (Novolog Vial Sliding Scale -) 1 vial SQ ACHS [facility]; Protocol Last Admin: 12/20/18 21:12 Dose: 10 units Insulin Detemir (Levemir Vial) 8 units SQ HS [facility] Last Admin: 12/20/18 21:10 Dose: 8 units Ipratropium [place] (Atrovent 0.02% Nebulizer -) 1 amp NEB RQID [facility] Last Admin: 12/20/18 20:00 Dose: 1 amp Lisinopril (Prinivil) 10 mg PO DAILY [facility] Last Admin: 12/20/18 11:52 Dose: 10 mg Metoprolol Tartrate (Lopressor -) 50 mg PO BID [facility] Last Admin: 12/20/18 21:13 Dose: 50 mg Metoprolol Tartrate (Lopressor Injection -) 5 mg IVPUSH Q4H PRN PRN Reason: HR >120 Polyethylene Glycol (Miralax (For Daily Use) -) 17 gm PO BID [facility] Last Admin: 12/20/18 21:20 Dose: 17 gm Prednisone (Deltasone -) 30 mg PO DAILY [facility] Rosuvastatin Calcium (Crestor -) 40 mg PO [facility] Last Admin: 12/20/18 21:13 Dose: 40 mg Saliva Substitute (Mouthkote Solution -) 1 applic MM Q2H PRN PRN Reason: COUGH Senna (Senna Oral Solution -) 8.8 mg PO [facility] Last Admin: 12/20/18 21:22 Dose: 8.8 mg - Objective Vital Signs: Vital Signs Temperature 97.7 F 12/20/18 14:00 Pulse Rate 51 L 12/20/18 14:00 Respiratory Rate 18 12/20/18 09:00 Blood Pressure 111/52 L 12/20/18 14:00 O2 Sat by Pulse Oximetry (%) 91 L 12/20/18 09:00 Constitutional: Yes: Anxious, Obese Eyes: Yes: WNL HENT: Yes: WNL Neck: Yes: WNL Cardiovascular: Yes: S1, S2 Respiratory: Yes: Regular, SOB. No: Wheezes Gastrointestinal: Yes: Soft, Abdomen, Obese ...Rectal Exam: Yes: Deferred Genitourinary: No: Anuria Breast(s): Yes: WNL Musculoskeletal: Yes: Joint Stiffness, Muscle Weakness Extremities: Yes: Cool Edema: No Peripheral Pulses WNL: Yes Neurological: Yes: Alert, Oriented, Weakness Psychiatric: Yes: Other (anxiety) Labs: CBC, BMP 12/18/18 05:30 12/18/18 05:30 INR, PTT INR 1.13 (0.83-1.09) H 11/23/18 16:40 - ....Imaging Chest X-ray: Image Reviewed Problem List - Problems (1) Atrial flutter Assessment/Plan: On metoprolol tartrate PO bid for HR control (pt reportedly sometimes refuses to take PO; on IVP prn). On digoxin 0.125 mg daily; keep level 0.5-1.0 (presently reduced from 1.59 to 0.76-->0.79 several days later. On apixaban for anticoagulation. ECHO: normal LVEF; moderate LVH. Code(s): I48.92 - UNSPECIFIED ATRIAL FLUTTER Qualifiers: Atrial flutter type: unspecified Qualified Code(s): I48.92 - Unspecified atrial flutter (2) HTN (hypertension) Assessment/Plan: on metoprolol and lisinopril. ECHO: normal LVEF; moderate LVH; mild TR and AR; trace to mild MR; RVSP WNL. Code(s): I10 - ESSENTIAL (PRIMARY) HYPERTENSION (3) Diabetes Assessment/Plan: on Levemir, Novolog. On lisinopril. Aggressive lipid control: started statin. Code(s): E11.9 - TYPE 2 DIABETES MELLITUS WITHOUT COMPLICATIONS (4) [place] cardiac risk >20% in next 10 years Assessment/Plan: TNI negative x 2. BP and glucose control. Keep LDL cholesterol < 70 mg/dL. Smoking cessation. Dietary consult; weight loss. Exercise will be important in the future. For coronary artery evaluation (stress Lexiscan MIBI) prior to renal biopsy. Code(s): Z91.89 - OTH PERSONAL RISK FACTORS, NOT ELSEWHERE CLASSIFIED (5) Alcoholism Assessment/Plan: On Vit B12 and Folate Code(s): F10.20 - ALCOHOL DEPENDENCE, UNCOMPLICATED (6) Ascites Code(s): R18.8 - OTHER ASCITES (7) Interstitial lung disease Assessment/Plan: Moderate pulmonary HTN and RV hypokinesis. TRINH. O2, bronchodilators, steroids per pumonologist. Code(s): J84.9 - INTERSTITIAL PULMONARY DISEASE, UNSPECIFIED (8) CHF (congestive heart failure) Assessment/Plan: Elevated BNP. F/u BUN/Cr, electrolytes, daily weight, IS and Os,. EcHO: normal LVEF; moderate LVH; mild TR, AR; trace-mild MR. Present control of AF/flutter HR with metoprolol and digoxin (discontinue digoxin if HR remains well-controlled). On lisinopril (HTN; CHF; DM). Code(s): I50.9 - HEART FAILURE, UNSPECIFIED (9) Renal dysfunction Code(s): N28.9 - DISORDER OF KIDNEY AND URETER, UNSPECIFIED (10) Respiratory failure Assessment/Plan: ISLD. TRINH Improving; f/u with de icer. Code(s): J96.90 - RESPIRATORY FAILURE, UNSP, UNSP W HYPOXIA OR HYPERCAPNIA (11) Sleep apnea Code(s): G47.30 - SLEEP APNEA, UNSPECIFIED (12) Hyperlipidemia Assessment/Plan: LDL cholesterol 108/ HDL 31; trigly 151 mg/dL. LFTs have markedly improved; now WNL. On rosuvastatin high-dose. Code(s): E78.5 - HYPERLIPIDEMIA, UNSPECIFIED (13) Hypomagnesemia Assessment/Plan: Repeated: now 2.4 (keep 2-2.4). Keep K+ 4-4.5. Keep PO4 2.5-4.9. Now on ACEI. Code(s): E83.42 - HYPOMAGNESEMIA
--- NOTE | 2018-12-20 23:44 | PN ---
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, Physician Chief Complaint: Pt, alert; no chest pain or dyspnea. History of Present Illness: 53 YO white woman with h/o COPD (placed on steroid course 2 days ago without relief) acute/chronic alcoholism (several glasses of rum daily), long-term cigarette smoker, sleep apnea, morbid obesity, DM, HTN, hyperlipidemia, chronic erythema of LEs with hx cellulitis, metabolic syndrome, who is now admitted with SOB and wheezing similar to her prior COPD exacerbation. She additionally notes awakening in the middle of the night last night with visual hallucinations. She additionally notes abdominal swelling recently, believes she has an abdominal infection but does not know what kind. Denies h/o heart arrhythmia. She has noticed her lips are more blue than normal. - Current Medication List Current Medications: Active Medications Albuterol Sulfate (Ventolin 0.083% Nebulizer Soln -) 1 amp NEB Q6H PRN PRN Reason: SHORT OF BREATH/WHEEZING Docusate Sodium (Colace -) 100 mg PO DAILY [facility] Last Admin: 12/20/18 11:52 Dose: 100 mg Enoxaparin Sodium (Lovenox -) 120 mg SQ BID [facility] Last Admin: 12/20/18 21:13 Dose: 120 mg Insulin Aspart (Novolog Vial Sliding Scale -) 1 vial SQ [facility]; Protocol Last Admin: 12/20/18 21:12 Dose: 10 units Insulin Detemir (Levemir Vial) 8 units SQ [facility] Last Admin: 12/20/18 21:10 Dose: 8 units Ipratropium [place] (Atrovent 0.02% Nebulizer -) 1 amp NEB RQID [facility] Last Admin: 12/20/18 20:00 Dose: 1 amp Lisinopril (Prinivil) 10 mg PO DAILY [facility] Last Admin: 12/20/18 11:52 Dose: 10 mg Metoprolol Tartrate (Lopressor -) 50 mg PO BID [facility] Last Admin: 12/20/18 21:13 Dose: 50 mg Metoprolol Tartrate (Lopressor Injection -) 5 mg IVPUSH Q4H PRN PRN Reason: HR >120 Polyethylene Glycol (Miralax (For Daily Use) -) 17 gm PO BID [facility] Last Admin: 12/20/18 21:20 Dose: 17 gm Prednisone (Deltasone -) 30 mg PO DAILY [facility] Rosuvastatin Calcium (Crestor -) 40 mg PO [facility] Last Admin: 12/20/18 21:13 Dose: 40 mg Saliva Substitute (Mouthkote Solution -) 1 applic MM Q2H PRN PRN Reason: COUGH Senna (Senna Oral Solution -) 8.8 mg PO [facility] Last Admin: 12/20/18 21:22 Dose: 8.8 mg - Objective Vital Signs: Vital Signs Temperature 97.7 F 12/20/18 14:00 Pulse Rate 51 L 12/20/18 14:00 Respiratory Rate 18 12/20/18 09:00 Blood Pressure 111/52 L 12/20/18 14:00 O2 Sat by Pulse Oximetry (%) 91 L 12/20/18 09:00 Labs: CBC, BMP 12/18/18 05:30 12/18/18 05:30 INR, PTT INR 1.13 (0.83-1.09) H 11/23/18 16:40 Problem List - Problems (1) Atrial flutter Assessment/Plan: On metoprolol tartrate PO bid for HR control (pt reportedly sometimes refuses to take PO; on IVP prn). On digoxin 0.125 mg daily; keep level 0.5-1.0 (presently reduced from 1.59 to 0.76-->0.79 several days later. On apixaban for anticoagulation. ECHO: normal LVEF; moderate LVH. Code(s): I48.92 - UNSPECIFIED ATRIAL FLUTTER Qualifiers: Atrial flutter type: unspecified Qualified Code(s): I48.92 - Unspecified atrial flutter (2) HTN (hypertension) Assessment/Plan: on metoprolol and lisinopril. ECHO: normal LVEF; moderate LVH; mild TR and AR; trace to mild MR; RVSP WNL. Code(s): I10 - ESSENTIAL (PRIMARY) HYPERTENSION (3) Diabetes Assessment/Plan: on Levemir, Novolog. On lisinopril. Aggressive lipid control: started statin. Code(s): E11.9 - TYPE 2 DIABETES MELLITUS WITHOUT COMPLICATIONS (4) [place] cardiac risk >20% in next 10 years Assessment/Plan: TNI negative x 2. BP and glucose control. Keep LDL cholesterol < 70 mg/dL. Smoking cessation. Dietary consult; weight loss. Exercise will be important in the future. For coronary artery evaluation (stress Lexiscan MIBI) prior to renal biopsy. Code(s): Z91.89 - OTH PERSONAL RISK FACTORS, NOT ELSEWHERE CLASSIFIED (5) Alcoholism Assessment/Plan: On Vit B12 and Folate Pt says there is an NA meeting [place] in [place] neighborhood, and she plans to be a regular there. Code(s): F10.20 - ALCOHOL DEPENDENCE, UNCOMPLICATED (6) Ascites Code(s): R18.8 - OTHER ASCITES (7) Interstitial lung disease Code(s): J84.9 - INTERSTITIAL PULMONARY DISEASE, UNSPECIFIED (8) CHF (congestive heart failure) Code(s): I50.9 - HEART FAILURE, UNSPECIFIED (9) Renal dysfunction Code(s): N28.9 - DISORDER OF KIDNEY AND URETER, UNSPECIFIED (10) Respiratory failure Code(s): J96.90 - RESPIRATORY FAILURE, UNSP, UNSP W HYPOXIA OR HYPERCAPNIA (11) Sleep apnea Code(s): G47.30 - SLEEP APNEA, UNSPECIFIED (12) Hyperlipidemia Code(s): E78.5 - HYPERLIPIDEMIA, UNSPECIFIED (13) Hypomagnesemia Code(s): E83.42 - HYPOMAGNESEMIA
[2018-12-21] MEDS: INSULIN SLIDING SCALE (NOVOLOG) 1 VIAL SQ SCH ×4 (06:22→22:12)
[2018-12-21 07:22] LABS: BASO % 0.3 % (0-2.0); EOS % 1.2 % (0-4.5); LYMPH % 18.1 % (8-40); MCH 32.6 pg (25.7-33.7); MCHC 34.1 g/dl (32.0-36.0); MEAN CELL VOLUME 95.6 fl (80-96); MEAN PLT VOLUME 9.8 fl (7.5-11.1); MONO % 6.8 % (3.8-10.2); NEUT % 73.6 % (42.8-82.8); PLATELET COUNT 126 K/MM3 (134-434); RBC 3.98 M/mm3 (3.60-5.2); RDW 14.3 % (11.6-15.6); WHITE BLOOD COUNT 8.8 K/mm3 (4.0-10.0)
[2018-12-21 07:59] LABS: ALBUMIN 2.5 g/dl (3.4-5.0); ALK PHOS 122 U/L (45-117); ANION GAP 4 MMOL/L (8-16); BILIRUBIN,TOTAL 0.5 mg/dL (0.2-1); BLOOD UREA NITROGEN 37 mg/dL (7-18); CALCIUM 9.2 mg/dL (8.5-10.1); CHLORIDE 100 mmol/L (98-107); CO2 36 mmol/L (21-32); CREATININE 0.9 mg/dL (0.55-1.3); GLUCOSE,RANDOM 128 mg/dL (74-106); POTASSIUM 5.2 mmol/L (3.5-5.1); SGOT/AST 19 U/L (15-37); SGPT/ALT 42 U/L (13-61); SODIUM 140 mmol/L (136-145); TOT PROT 5.3 g/dl (6.4-8.2)
[2018-12-21] MEDS: IPRATROPIUM BR 0.02% 0.5 MG/2.5 ML VIAL.NEB. NEB SCH ×4 (08:30→20:40)
[2018-12-21] MEDS: predniSONE 10 MG TABLET (UD) PO SCH (09:59)
[2018-12-21] MEDS: DOCUSATE SODIUM 100 MG CAPSULE (FP) PO SCH (10:00)
[2018-12-21] MEDS: POLYETHYLENE GLYCOL 3350 119 GM BTL PO SCH ×2 (10:00→22:08)
[2018-12-21] MEDS: LISINOPRIL 10 MG TABLET (FP) PO SCH (10:00)
[2018-12-21] MEDS: ENOXAPARIN NA (PORCINE) 120 MG/0.8 ML DISP.SYRIN SQ SCH ×2 (10:00→22:09)
[2018-12-21] MEDS: METOPROLOL TARTRATE 25 MG TABLET (FP) PO SCH ×2 (10:00→22:08)
--- NOTE | 2018-12-21 11:07 | PN ---
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 (short form) - Note 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: awake and alert no pain , distress Selected Entries 12/21/18 18:00 Temperature 98.2 F Pulse Rate 78 Respiratory 24 H Rate Blood Pressure 93/54 L Blood Pressure 67 Mean Laboratory Tests 12/21/18 12/21/18 07:00 07:00 WBC 8.8 Hgb 13.0 Hct 38.0 Plt Count 126 L D Sodium 140 Potassium 5.2 H Chloride 100 Carbon Dioxide 36 H Anion Gap 4 L BUN 37 H Creatinine 0.9 Creat Clearance w eGFR > 60 Random Glucose 128 H S1 S2 RRR Lungs decreased breath sounds Abd- soft, NT,obese, ND edema + PLAN off antibiotics on PO prednisone continue with meds now planning for renal biopsy-- will need to dc anticoagulation-- place pt on Lovenox sc spoke with cardiology-- would have pt undergo a stress test prior to any procedures-- likely Saturday Pt will need STR-- spoke with family independence case manager clinically improving Problem List - Problems (1) Acute on chronic respiratory failure with hypoxia and hypercapnia Code(s): J96.21 - ACUTE AND CHRONIC RESPIRATORY FAILURE WITH HYPOXIA; J96.22 - ACUTE AND CHRONIC RESPIRATORY FAILURE WITH HYPERCAPNIA (2) Acute renal failure Code(s): N17.9 - ACUTE KIDNEY FAILURE, UNSPECIFIED (3) Acute respiratory failure with hypoxia and hypercapnia Code(s): J96.01 - ACUTE RESPIRATORY FAILURE WITH HYPOXIA; J96.02 - ACUTE RESPIRATORY FAILURE WITH HYPERCAPNIA (4) Alcoholism Code(s): F10.20 - ALCOHOL DEPENDENCE, UNCOMPLICATED (5) Atrial flutter Code(s): I48.92 - UNSPECIFIED ATRIAL FLUTTER Qualifiers: Atrial flutter type: unspecified Qualified Code(s): I48.92 - Unspecified atrial flutter (6) Bilateral lower extremity edema Code(s): R60.0 - LOCALIZED EDEMA
--- NOTE | 2018-12-21 12:03 | PN ---
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 (short form) - Note 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: PULMONARY Denies shortness of breath or chest pain. +nonproductive cough. Vital Signs Period Temp Pulse Resp BP Sys/Gregorio Pulse Ox Last 24 Hr 97.7 F-98.4 F 44-52 17-19 106-118/52-66 94-98 Gen: NAD at rest Heart: RRR Lung: decreased breath sounds at the bases Abd: soft, nontender Ext: less edema CBC, BMP 12/21/18 07:00 12/21/18 07:00 Active Medications Albuterol Sulfate (Ventolin 0.083% Nebulizer Soln -) 1 amp NEB Q6H PRN PRN Reason: SHORT OF BREATH/WHEEZING Docusate Sodium (Colace -) 100 mg PO DAILY [facility] Last Admin: 12/21/18 10:00 Dose: 100 mg Enoxaparin Sodium (Lovenox -) 120 mg SQ BID [facility] Last Admin: 12/21/18 10:00 Dose: 120 mg Insulin Aspart (Novolog Vial Sliding Scale -) 1 vial SQ [facility]; Protocol Last Admin: 12/21/18 06:22 Dose: 4 units Insulin Detemir (Levemir Vial) 8 units SQ [facility] Last Admin: 12/20/18 21:10 Dose: 8 units Ipratropium [place] (Atrovent 0.02% Nebulizer -) 1 amp NEB RQID [facility] Last Admin: 12/21/18 08:30 Dose: 1 amp Lisinopril (Prinivil) 10 mg PO DAILY [facility] Last Admin: 12/21/18 10:00 Dose: 10 mg Metoprolol Tartrate (Lopressor -) 50 mg PO BID [facility] Last Admin: 12/21/18 10:00 Dose: 50 mg Metoprolol Tartrate (Lopressor Injection -) 5 mg IVPUSH Q4H PRN PRN Reason: HR >120 Polyethylene Glycol (Miralax (For Daily Use) -) 17 gm PO BID [facility] Last Admin: 12/21/18 10:00 Dose: 17 gm Prednisone (Deltasone -) 30 mg PO DAILY [facility] Last Admin: 12/21/18 09:59 Dose: 30 mg Rosuvastatin Calcium (Crestor -) 40 mg PO HS [facility] Last Admin: 12/20/18 21:13 Dose: 40 mg Saliva Substitute (Mouthkote Solution -) 1 applic MM Q2H PRN PRN Reason: COUGH Senna (Senna Oral Solution -) 8.8 mg PO HS [facility] Last Admin: 12/20/18 21:22 Dose: 8.8 mg A/P Acute on Chronic Hypoxic and Hypercapneic Respiratory Failure improving Acute COPD Exacerbation resolved Morbid Obesity Obstructive Sleep Apnea/Obesity Hypoventilation Syndrome Suspect Right Heart Failure improving Volume Overload improving Mediastinal Lymphadenopathy Atrial Fibrillation with RVR Cellulitis treated Acute Kidney Injury Alcohol Abuse - rate control - continue anticoagulation - prednisone taper - inhaled bronchodilators PRN - completed antibiotics - lasix as needed - monitor urine output, creatinine - O2 to keep Spo2 >90% - rehab/PT - DVT/GI prophylaxis
--- NOTE | 2018-12-21 18:02 | PN ---
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, Physician History of Present Illness: Pt seen and examined at bedside. She is awake and appears comfortable. - Current Medication List Current Medications: Active Medications Albuterol Sulfate (Ventolin 0.083% Nebulizer Soln -) 1 amp NEB Q6H PRN PRN Reason: SHORT OF BREATH/WHEEZING Docusate Sodium (Colace -) 100 mg PO DAILY [facility] Last Admin: 12/21/18 10:00 Dose: 100 mg Enoxaparin Sodium (Lovenox -) 120 mg SQ BID [facility] Last Admin: 12/21/18 10:00 Dose: 120 mg Insulin Aspart (Novolog Vial Sliding Scale -) 1 vial SQ [facility]; Protocol Last Admin: 12/21/18 06:22 Dose: 4 units Insulin Detemir (Levemir Vial) 8 units SQ [facility] Last Admin: 12/20/18 21:10 Dose: 8 units Ipratropium [place] (Atrovent 0.02% Nebulizer -) 1 amp NEB RQID [facility] Last Admin: 12/21/18 16:47 Dose: 1 amp Lisinopril (Prinivil) 10 mg PO DAILY [facility] Last Admin: 12/21/18 10:00 Dose: 10 mg Metoprolol Tartrate (Lopressor -) 50 mg PO BID [facility] Last Admin: 12/21/18 10:00 Dose: 50 mg Metoprolol Tartrate (Lopressor Injection -) 5 mg IVPUSH Q4H PRN PRN Reason: HR >120 Polyethylene Glycol (Miralax (For Daily Use) -) 17 gm PO BID [facility] Last Admin: 12/21/18 10:00 Dose: 17 gm Prednisone (Deltasone -) 30 mg PO DAILY [facility] Last Admin: 12/21/18 09:59 Dose: 30 mg Rosuvastatin Calcium (Crestor -) 40 mg PO [facility] Last Admin: 12/20/18 21:13 Dose: 40 mg Saliva Substitute (Mouthkote Solution -) 1 applic MM Q2H PRN PRN Reason: COUGH Senna (Senna Oral Solution -) 8.8 mg PO [facility] Last Admin: 12/20/18 21:22 Dose: 8.8 mg - Objective Vital Signs: Vital Signs Temperature 98.2 F 12/21/18 17:50 Pulse Rate 78 12/21/18 17:50 Respiratory Rate 24 H 12/21/18 17:50 Blood Pressure 93/54 L 12/21/18 17:50 O2 Sat by Pulse Oximetry (%) 94 L 12/21/18 08:00 Constitutional: Yes: Calm Eyes: Yes: Conjunctiva Clear HENT: Yes: Atraumatic Cardiovascular: Yes: S1, S2 Respiratory: Yes: On Nasal O2, Wheezes Gastrointestinal: Yes: Soft, Abdomen, Obese Genitourinary: Yes: Incontinence Musculoskeletal: Yes: Muscle Weakness Edema: Yes Edema: LLE: Trace, RLE: Trace Neurological: Yes: Oriented Psychiatric: Yes: Oriented Labs: CBC, BMP 12/21/18 07:00 12/21/18 07:00 INR, PTT INR 1.13 (0.83-1.09) H 11/23/18 16:40 Problem List - Problems (1) Hyperkalemia Code(s): E87.5 - HYPERKALEMIA (2) Acute on chronic respiratory failure with hypoxia and hypercapnia Code(s): J96.21 - ACUTE AND CHRONIC RESPIRATORY FAILURE WITH HYPOXIA; J96.22 - ACUTE AND CHRONIC RESPIRATORY FAILURE WITH HYPERCAPNIA (3) Acute renal failure Code(s): N17.9 - ACUTE KIDNEY FAILURE, UNSPECIFIED (4) Alcoholism Code(s): F10.20 - ALCOHOL DEPENDENCE, UNCOMPLICATED (5) Atrial flutter Code(s): I48.92 - UNSPECIFIED ATRIAL FLUTTER Qualifiers: Atrial flutter type: unspecified Qualified Code(s): I48.92 - Unspecified atrial flutter (6) Bilateral lower extremity edema Code(s): R60.0 - LOCALIZED EDEMA (7) COPD exacerbation Code(s): J44.1 - CHRONIC OBSTRUCTIVE PULMONARY DISEASE W (ACUTE) EXACERBATION Assessment/Plan Current Medications Generic Name Dose Route Start Last Admin Trade Name Freq PRN Reason Stop Dose Admin Albuterol Sulfate 1 amp 12/17/18 16:52 Ventolin 0.083% Nebulizer Soln - NEB Q6H PRN SHORT OF BREATH/WHEEZING Docusate Sodium 100 mg 12/18/18 10:00 12/21/18 10:00 Colace - PO 100 mg DAILY [facility] Administration Enoxaparin Sodium 120 mg 12/20/18 20:00 12/21/18 10:00 Lovenox - SQ 120 mg BID [facility] Administration Insulin Aspart 1 vial 12/17/18 22:00 12/21/18 06:22 Novolog Vial Sliding Scale - SQ 4 units ACHS [facility] Administration Protocol Insulin Detemir 8 units 12/17/18 22:00 12/20/18 21:10 Levemir Vial SQ 8 units HS [facility] Administration Ipratropium [place] 1 amp 12/17/18 20:00 12/21/18 16:47 Atrovent 0.02% Nebulizer - NEB 1 amp RQID [facility] Administration Lisinopril 10 mg 12/18/18 10:00 12/21/18 10:00 Prinivil PO 10 mg DAILY [facility] Administration Metoprolol Tartrate 50 mg 12/17/18 14:20 12/21/18 10:00 Lopressor - PO 50 mg BID [facility] Administration Metoprolol Tartrate 5 mg 12/17/18 16:52 Lopressor Injection - IVPUSH Q4H PRN HR >120 Polyethylene Glycol 17 gm 12/16/18 22:00 12/21/18 10:00 Miralax (For Daily Use) - PO 17 gm BID [facility] Administration Prednisone 30 mg 12/21/18 10:00 12/21/18 09:59 Deltasone - PO 30 mg DAILY [facility] Administration Rosuvastatin Calcium 40 mg 12/16/18 22:00 12/20/18 21:13 Crestor - PO 40 mg HS [facility] Administration Saliva Substitute 1 applic 12/17/18 16:52 Mouthkote Solution - MM Q2H PRN COUGH Senna 8.8 mg 12/17/18 22:00 12/20/18 21:22 Senna Oral Solution - PO 8.8 mg HS [facility] Administration Impression 1. PITO 2. hyperkalemia 3. a-flutter 4. resp failure requiring bipap 5. DM 6. HTN 7. active smoker 8. etoh abuse 9. obesity 10. interstitial lung disease on CT scan 11. resp acidosis 12. COPD 13. positive pr3 14. hypernatremia Plan - stop lisinopril as potassium is rising and bp is low - follow repeat anca - family and pt do not want kidney biopsy at this time - follow up stress test - please repeat ua - will need close follow up after discharge
[2018-12-21] MEDS ORDERED: PT OWN MED DRAWER 7, Y5N ONE (21:04)
[2018-12-21] MEDS: SENNOSIDES 8.8 MG/5 ML BULK BOTTLE PO SCH (22:08)
[2018-12-21] MEDS: ROSUVASTATIN CA 20 MG TABLET (FP) PO SCH (22:08)
[2018-12-21] MEDS: INSULIN (LEVEMIR) 100 UNITS/ML UNITS SQ SCH (22:09)
[2018-12-22] MEDS: INSULIN SLIDING SCALE (NOVOLOG) 1 VIAL SQ SCH ×4 (06:54→21:12)
[2018-12-22] MEDS: IPRATROPIUM BR 0.02% 0.5 MG/2.5 ML VIAL.NEB. NEB SCH ×4 (08:00→20:58)
--- NOTE | 2018-12-22 09:26 | PN ---
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, Physician History of Present Illness: 53 YO white woman with h/o COPD (placed on steroid course 2 days ago without relief) acute/chronic alcoholism (several glasses of rum daily), long-term cigarette smoker, sleep apnea, morbid obesity, DM, HTN, hyperlipidemia, chronic erythema of LEs with hx cellulitis, metabolic syndrome, who is now admitted with SOB and wheezing similar to her prior COPD exacerbation. She additionally notes awakening in the middle of the night last night with visual hallucinations. She additionally notes abdominal swelling recently, believes she has an abdominal infection but does not know what kind. Denies h/o heart arrhythmia. She has noticed her lips are more blue than normal. - Current Medication List Current Medications: Active Medications Albuterol Sulfate (Ventolin 0.083% Nebulizer Soln -) 1 amp NEB Q6H PRN PRN Reason: SHORT OF BREATH/WHEEZING Docusate Sodium (Colace -) 100 mg PO DAILY [facility] Last Admin: 12/21/18 10:00 Dose: 100 mg Enoxaparin Sodium (Lovenox -) 120 mg SQ BID [facility] Last Admin: 12/21/18 22:09 Dose: 120 mg Insulin Aspart (Novolog Vial Sliding Scale -) 1 vial SQ [facility]; Protocol Last Admin: 12/22/18 06:54 Dose: Not Given Insulin Detemir (Levemir Vial) 8 units SQ [facility] Last Admin: 12/21/18 22:09 Dose: 8 units Ipratropium [place] (Atrovent 0.02% Nebulizer -) 1 amp NEB RQID [facility] Last Admin: 12/22/18 08:00 Dose: 1 amp Metoprolol Tartrate (Lopressor -) 50 mg PO BID [facility] Last Admin: 12/21/18 22:08 Dose: 50 mg Metoprolol Tartrate (Lopressor Injection -) 5 mg IVPUSH Q4H PRN PRN Reason: HR >120 Polyethylene Glycol (Miralax (For Daily Use) -) 17 gm PO BID [facility] Last Admin: 12/21/18 22:08 Dose: 17 gm Prednisone (Deltasone -) 30 mg PO DAILY [facility] Last Admin: 12/21/18 09:59 Dose: 30 mg Rosuvastatin Calcium (Crestor -) 40 mg PO [facility] Last Admin: 12/21/18 22:08 Dose: 40 mg Saliva Substitute (Mouthkote Solution -) 1 applic MM Q2H PRN PRN Reason: COUGH Senna (Senna Oral Solution -) 8.8 mg PO HS [facility] Last Admin: 12/21/18 22:08 Dose: 8.8 mg - Objective Vital Signs: Vital Signs Temperature 97.7 F 12/22/18 06:00 Pulse Rate 50 L 12/22/18 06:00 Respiratory Rate 18 12/22/18 06:00 Blood Pressure 91/57 L 12/22/18 06:00 O2 Sat by Pulse Oximetry (%) 97 12/21/18 21:00 Eyes: Yes: WNL, Conjunctiva Clear, EOM Intact HENT: Yes: WNL, Atraumatic, Normocephalic Neck: Yes: WNL, Supple, Trachea Midline Cardiovascular: Yes: Regular Rate and Rhythm Respiratory: Yes: WNL, Regular, CTA Bilaterally Gastrointestinal: Yes: WNL, Normal Bowel Sounds Genitourinary: Yes: WNL Musculoskeletal: Yes: WNL Extremities: Yes: WNL Edema: No Integumentary: Yes: WNL Neurological: Yes: WNL, Alert, Oriented ...Motor Strength: WNL Psychiatric: Yes: WNL Labs: CBC, BMP 12/21/18 07:00 12/21/18 07:00 INR, PTT INR 1.13 (0.83-1.09) H 11/23/18 16:40 Assessment/Plan - Problems (1) Atrial flutter in NSR Assessment/Plan: On metoprolol tartrate PO bid for HR control (pt reportedly sometimes refuses to take PO; on IVP prn). On digoxin 0.125 mg daily; keep level 0.5-1.0 (presently reduced from 1.59 to 0.76-->0.79 several days later. On apixaban for anticoagulation. ECHO: normal LVEF; moderate LVH. Code(s): I48.92 - UNSPECIFIED ATRIAL FLUTTER Qualifiers: Atrial flutter type: unspecified Qualified Code(s): I48.92 - Unspecified atrial flutter (2) HTN (hypertension) Assessment/Plan: on metoprolol and lisinopril. ECHO: normal LVEF; moderate LVH; mild TR and AR; trace to mild MR; RVSP WNL. Code(s): I10 - ESSENTIAL (PRIMARY) HYPERTENSION (3) Diabetes Assessment/Plan: on Levemir, Novolog. On lisinopril. Aggressive lipid control: started statin. Code(s): E11.9 - TYPE 2 DIABETES MELLITUS WITHOUT COMPLICATIONS (4) [place] cardiac risk >20% in next 10 years Assessment/Plan: TNI negative x 2. BP and glucose control. Keep LDL cholesterol < 70 mg/dL. Smoking cessation. Dietary consult; weight loss. Exercise will be important in the future. For coronary artery evaluation (stress Lexiscan MIBI) prior to renal biopsy. Code(s): Z91.89 - OTH PERSONAL RISK FACTORS, NOT ELSEWHERE CLASSIFIED (5) Alcoholism Assessment/Plan: On Vit B12 and Folate Pt says there is an NA meeting [place] in [place] neighborhood, and she plans to be a regular there. Code(s): F10.20 - ALCOHOL DEPENDENCE, UNCOMPLICATED (6) Ascites Code(s): R18.8 - OTHER ASCITES (7) Interstitial lung disease Code(s): J84.9 - INTERSTITIAL PULMONARY DISEASE, UNSPECIFIED (8) CHF (congestive heart failure) Code(s): I50.9 - HEART FAILURE, UNSPECIFIED (9) Renal dysfunction Code(s): N28.9 - DISORDER OF KIDNEY AND URETER, UNSPECIFIED (10) Respiratory failure Code(s): J96.90 - RESPIRATORY FAILURE, UNSP, UNSP W HYPOXIA OR HYPERCAPNIA (11) Sleep apnea Code(s): G47.30 - SLEEP APNEA, UNSPECIFIED (12) Hyperlipidemia Code(s): E78.5 - HYPERLIPIDEMIA, UNSPECIFIED (13) Hypomagnesemia Code(s): E83.42 - HYPOMAGNESEMIA
[2018-12-22] MEDS: METOPROLOL TARTRATE 25 MG TABLET (FP) PO SCH ×2 (09:35→23:15)
[2018-12-22] MEDS: predniSONE 10 MG TABLET (UD) PO SCH ×2 (09:35→13:00)
[2018-12-22] MEDS: DOCUSATE SODIUM 100 MG CAPSULE (FP) PO SCH (09:35)
[2018-12-22] MEDS: ENOXAPARIN NA (PORCINE) 120 MG/0.8 ML DISP.SYRIN SQ SCH (09:36)
[2018-12-22] MEDS: POLYETHYLENE GLYCOL 3350 119 GM BTL PO SCH ×3 (09:36→21:12)
--- NOTE | 2018-12-22 10:13 | PN ---
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 (short form) - Note 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: patient seen and examined comfortable Better Vital Signs Temp 97.7 F 12/22/18 06:00 Pulse 50 L 12/22/18 06:00 Resp 18 12/22/18 06:00 BP 91/57 L 12/22/18 06:00 Pulse Ox 97 12/21/18 21:00 Intake & Output 12/21/18 12/21/18 12/22/18 11:59 23:59 11:59 Intake Total 360 240 Balance 360 240 Weight 246 lb 6.4 oz Intake: Oral 360 240 Other: Voiding Method Toilet Toilet Diaper # Unmeasured Voids Void 2 Bowel Movement Yes: 1 Yes Weight Measurement Method Patient Lift Scale Active Medications Albuterol Sulfate (Ventolin 0.083% Nebulizer Soln -) 1 amp NEB Q6H PRN PRN Reason: SHORT OF BREATH/WHEEZING Docusate Sodium (Colace -) 100 mg PO DAILY [facility] Last Admin: 12/22/18 09:35 Dose: Not Given Enoxaparin Sodium (Lovenox -) 120 mg SQ BID [facility] Last Admin: 12/22/18 09:36 Dose: Not Given Insulin Aspart (Novolog Vial Sliding Scale -) 1 vial SQ [facility]; Protocol Last Admin: 12/22/18 06:54 Dose: Not Given Insulin Detemir (Levemir Vial) [address] [facility] Last Admin: 12/21/18 22:09 Dose: 8 units Ipratropium [place] (Atrovent 0.02% Nebulizer -) 1 amp NEB RQID [facility] Last Admin: 12/22/18 08:00 Dose: 1 amp Metoprolol Tartrate (Lopressor -) 50 mg PO BID [facility] Last Admin: 12/22/18 09:35 Dose: Not Given Metoprolol Tartrate (Lopressor Injection -) 5 mg IVPUSH Q4H PRN PRN Reason: HR >120 Polyethylene Glycol (Miralax (For Daily Use) -) 17 gm PO BID [facility] Last Admin: 12/22/18 09:36 Dose: Not Given Prednisone (Deltasone -) 30 mg PO DAILY [facility] Last Admin: 12/22/18 09:35 Dose: Not Given Rosuvastatin Calcium (Crestor -) [address] [facility] Last Admin: 12/21/18 22:08 Dose: 40 mg Saliva Substitute (Mouthkote Solution -) 1 applic MM Q2H PRN PRN Reason: COUGH Senna (Senna Oral Solution -) 8.8 mg PO HS [facility] Last Admin: 12/21/18 22:08 Dose: 8.8 mg CBC, BMP 12/21/18 07:00 12/21/18 07:00 Physical exam alert and awake S1 S2 RRR Lungs decreased breath sounds Abd- soft, NT,obese, ND edema + PLAN off antibiotics on PO prednisone continue with meds patient and family refusing kidney biopsy stress test today restart on eliquis Pt will need STR-- clinically improving Will follow Problem List - Problems (1) Acute respiratory failure with hypoxia and hypercapnia Code(s): J96.01 - ACUTE RESPIRATORY FAILURE WITH HYPOXIA; J96.02 - ACUTE RESPIRATORY FAILURE WITH HYPERCAPNIA (2) Atrial flutter Code(s): I48.92 - UNSPECIFIED ATRIAL FLUTTER Qualifiers: Atrial flutter type: unspecified Qualified Code(s): I48.92 - Unspecified atrial flutter (3) Bilateral lower extremity edema Code(s): R60.0 - LOCALIZED EDEMA (4) Diabetes Code(s): E11.9 - TYPE 2 DIABETES MELLITUS WITHOUT COMPLICATIONS (5) Elevated LFTs Code(s): R94.5 - ABNORMAL RESULTS OF LIVER FUNCTION STUDIES (6) Hyperlipidemia Code(s): E78.5 - HYPERLIPIDEMIA, UNSPECIFIED (7) Morbid obesity Code(s): E66.01 - MORBID (SEVERE) OBESITY DUE TO EXCESS CALORIES (8) Acute renal failure Code(s): N17.9 - ACUTE KIDNEY FAILURE, UNSPECIFIED (9) Pulmonary hypertension Code(s): I27.20 - PULMONARY HYPERTENSION, UNSPECIFIED
[2018-12-22] MEDS ORDERED: REGADENOSON 0.4 MG/5 ML PRE-FILLED SYRINGE IVPUSH ONE ×2 (10:37→11:15)
--- NOTE | 2018-12-22 11:39 | PN ---
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 REC: Reg diet/thin liquids. Tolerating PO diet well.
[2018-12-22 13:41] LABS: ANION GAP 4 MMOL/L (8-16); BLOOD UREA NITROGEN 35 mg/dL (7-18); CHLORIDE 101 mmol/L (98-107); CO2 35 mmol/L (21-32); CREATININE 0.8 mg/dL (0.55-1.3); GLUCOSE,RANDOM 98 mg/dL (74-106); POTASSIUM 4.2 mmol/L (3.5-5.1); SODIUM 140 mmol/L (136-145)
--- NOTE | 2018-12-22 14:42 | PN ---
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, Physician History of Present Illness: Pt seen and examined at bedside. She is awake and alert. She went for the stress test today. - Current Medication List Current Medications: Active Medications Albuterol Sulfate (Ventolin 0.083% Nebulizer Soln -) 1 amp NEB Q6H PRN PRN Reason: SHORT OF BREATH/WHEEZING Apixaban (Eliquis -) 5 mg PO BID [facility] Docusate Sodium (Colace -) 100 mg PO DAILY [facility] Last Admin: 12/22/18 09:35 Dose: Not Given Insulin Aspart (Novolog Vial Sliding Scale -) 1 vial SQ ACHS [facility]; Protocol Last Admin: 12/22/18 11:06 Dose: Not Given Insulin Detemir (Levemir Vial) 8 units SQ [facility] Last Admin: 12/21/18 22:09 Dose: 8 units Ipratropium [place] (Atrovent 0.02% Nebulizer -) 1 amp NEB RQID [facility] Last Admin: 12/22/18 12:02 Dose: Not Given Metoprolol Tartrate (Lopressor -) 50 mg PO BID [facility] Last Admin: 12/22/18 09:35 Dose: Not Given Metoprolol Tartrate (Lopressor Injection -) 5 mg IVPUSH Q4H PRN PRN Reason: HR >120 Polyethylene Glycol (Miralax (For Daily Use) -) 17 gm PO BID [facility] Last Admin: 12/22/18 09:36 Dose: Not Given Prednisone (Deltasone -) 30 mg PO DAILY [facility] Last Admin: 12/22/18 09:35 Dose: Not Given Rosuvastatin Calcium (Crestor -) 40 mg PO [facility] Last Admin: 12/21/18 22:08 Dose: 40 mg Saliva Substitute (Mouthkote Solution -) 1 applic MM Q2H PRN PRN Reason: COUGH Senna (Senna Oral Solution -) 8.8 mg PO [facility] Last Admin: 12/21/18 22:08 Dose: 8.8 mg - Objective Vital Signs: Vital Signs Temperature 97.7 F 12/22/18 10:00 Pulse Rate 48 L 12/22/18 10:00 Respiratory Rate 18 12/22/18 10:00 Blood Pressure 95/48 L 12/22/18 10:00 O2 Sat by Pulse Oximetry (%) 97 12/22/18 10:00 Constitutional: Yes: Calm Eyes: Yes: Conjunctiva Clear HENT: Yes: Atraumatic Neck: Yes: Supple Cardiovascular: Yes: S1, S2 Respiratory: Yes: CTA Bilaterally Gastrointestinal: Yes: Soft Genitourinary: Yes: WNL Musculoskeletal: Yes: WNL Edema: No Neurological: Yes: Oriented Psychiatric: Yes: Oriented Labs: CBC, BMP 12/21/18 07:00 12/22/18 12:43 INR, PTT INR 1.13 (0.83-1.09) H 11/23/18 16:40 Problem List - Problems (1) Hyperkalemia Code(s): E87.5 - HYPERKALEMIA (2) Acute on chronic respiratory failure with hypoxia and hypercapnia Code(s): J96.21 - ACUTE AND CHRONIC RESPIRATORY FAILURE WITH HYPOXIA; J96.22 - ACUTE AND CHRONIC RESPIRATORY FAILURE WITH HYPERCAPNIA (3) Acute renal failure Code(s): N17.9 - ACUTE KIDNEY FAILURE, UNSPECIFIED (4) Alcoholism Code(s): F10.20 - ALCOHOL DEPENDENCE, UNCOMPLICATED (5) Atrial flutter Code(s): I48.92 - UNSPECIFIED ATRIAL FLUTTER Qualifiers: Atrial flutter type: unspecified Qualified Code(s): I48.92 - Unspecified atrial flutter (6) Bilateral lower extremity edema Code(s): R60.0 - LOCALIZED EDEMA (7) COPD exacerbation Code(s): J44.1 - CHRONIC OBSTRUCTIVE PULMONARY DISEASE W (ACUTE) EXACERBATION Assessment/Plan Current Medications Generic Name Dose Route Start Last Admin Trade Name Freq PRN Reason Stop Dose Admin Albuterol Sulfate 1 amp 12/17/18 16:52 Ventolin 0.083% Nebulizer Soln - NEB Q6H PRN SHORT OF BREATH/WHEEZING Apixaban 5 mg 12/22/18 22:00 Eliquis - PO BID [facility] Docusate Sodium 100 mg 12/18/18 10:00 12/22/18 09:35 Colace - PO Not Given DAILY [facility] Insulin Aspart 1 vial 12/17/18 22:00 12/22/18 11:06 Novolog Vial Sliding Scale - SQ Not Given ACHS [facility] Protocol Insulin Detemir 8 units 12/17/18 22:00 12/21/18 22:09 Levemir Vial SQ 8 units HS [facility] Administration Ipratropium [place] 1 amp 12/17/18 20:00 12/22/18 12:02 Atrovent 0.02% Nebulizer - NEB Not Given RQID [facility] Metoprolol Tartrate 50 mg 12/17/18 14:20 12/22/18 09:35 Lopressor - PO Not Given BID [facility] Metoprolol Tartrate 5 mg 12/17/18 16:52 Lopressor Injection - IVPUSH Q4H PRN HR >120 Polyethylene Glycol 17 gm 12/16/18 22:00 12/22/18 09:36 Miralax (For Daily Use) - PO Not Given BID [facility] Prednisone 30 mg 12/21/18 10:00 12/22/18 09:35 Deltasone - PO Not Given DAILY [facility] Rosuvastatin Calcium 40 mg 12/16/18 22:00 12/21/18 22:08 Crestor - PO 40 mg HS [facility] Administration Saliva Substitute 1 applic 12/17/18 16:52 Mouthkote Solution - MM Q2H PRN COUGH Senna 8.8 mg 12/17/18 22:00 12/21/18 22:08 Senna Oral Solution - PO 8.8 mg HS [facility] Administration Impression 1. PITO 2. hyperkalemia 3. a-flutter 4. resp failure requiring bipap 5. DM 6. HTN 7. active smoker 8. etoh abuse 9. obesity 10. interstitial lung disease on CT scan 11. resp acidosis 12. COPD 13. positive pr3 14. hypernatremia Plan - renal function is stabilizing - monitor bp - lisinopril held for hypotension and hyperkalemia - potassium is improved - follow serologies - family and pt do not want biopsy at this time - follow repeat ua - will need close follow up after discharge
[2018-12-22 20:21] LABS: URINE APPEARANCE CLEAR; URINE BILIRUBIN NEGATIVE (<2.0 mg/dL); URINE COLOR YELLOW; URINE GLUCOSE (UA) NEGATIVE (NEGATIVE); URINE KETONE NEGATIVE (NEGATIVE); URINE LEUK ESTERASE NEGATIVE (NEGATIVE); URINE NITRITE NEGATIVE (NEGATIVE); URINE PROTEIN NEGATIVE (NEGATIVE); URINE UROBILINOGEN 4.0 E.U/dl mg/dL (0.2-1.0)
[2018-12-22] MEDS ORDERED: PT OWN MED DRAWER 7, Y5N ONE (21:06)
[2018-12-22] MEDS: SENNOSIDES 8.8 MG/5 ML BULK BOTTLE PO SCH (21:13)
[2018-12-22] MEDS: APIXABAN 5 MG TABLET PO SCH (21:13)
[2018-12-22] MEDS: INSULIN (LEVEMIR) 100 UNITS/ML UNITS SQ SCH (21:13)
[2018-12-22] MEDS: ROSUVASTATIN CA 20 MG TABLET (FP) PO SCH (21:13)
[2018-12-23] MEDS: INSULIN SLIDING SCALE (NOVOLOG) 1 VIAL SQ SCH ×3 (06:22→18:32)
[2018-12-23 07:33] LABS: ANION GAP 6 MMOL/L (8-16); BLOOD UREA NITROGEN 35 mg/dL (7-18); CALCIUM 8.7 mg/dL (8.5-10.1); CHLORIDE 102 mmol/L (98-107); CO2 34 mmol/L (21-32); CREATININE 0.9 mg/dL (0.55-1.3); GLUCOSE,RANDOM 173 mg/dL (74-106); POTASSIUM 5.7 mmol/L (3.5-5.1); SODIUM 143 mmol/L (136-145)
[2018-12-23] MEDS: IPRATROPIUM BR 0.02% 0.5 MG/2.5 ML VIAL.NEB. NEB SCH ×3 (08:26→16:10)
[2018-12-23] MEDS ORDERED: ALBUTEROL SO4 0.5 % INH SOLN 2.5 MG/0.5 ML VIAL.NEB. NEB ONE (10:19)
[2018-12-23] MEDS: METOPROLOL TARTRATE 25 MG TABLET (FP) PO SCH (11:00)
[2018-12-23] MEDS: APIXABAN 5 MG TABLET PO SCH (11:00)
[2018-12-23] MEDS: predniSONE 10 MG TABLET (UD) PO SCH (11:00)
[2018-12-23] MEDS: DOCUSATE SODIUM 100 MG CAPSULE (FP) PO SCH (11:01)
[2018-12-23] MEDS: POLYETHYLENE GLYCOL 3350 119 GM BTL PO SCH (11:01)
--- NOTE | 2018-12-23 11:02 | PN ---
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, Physician History of Present Illness: PULMONARY ALERT,FEELING BETTER,LESS DYSPNEIC,+ COUGH CLEAR SPUTUM - Current Medication List Current Medications: Active Medications Albuterol Sulfate (Ventolin 0.083% Nebulizer Soln -) 1 amp NEB Q6H PRN PRN Reason: SHORT OF BREATH/WHEEZING Apixaban (Eliquis -) 5 mg PO BID [facility] Last Admin: 12/22/18 21:13 Dose: 5 mg Docusate Sodium (Colace -) 100 mg PO DAILY [facility] Last Admin: 12/22/18 09:35 Dose: Not Given Insulin Aspart (Novolog Vial Sliding Scale -) 1 vial SQ [facility]; Protocol Last Admin: 12/23/18 06:22 Dose: 4 units Insulin Detemir (Levemir Vial) 8 units SQ [facility] Last Admin: 12/22/18 21:13 Dose: 8 units Ipratropium [place] (Atrovent 0.02% Nebulizer -) 1 amp NEB RQID [facility] Last Admin: 12/23/18 08:26 Dose: 1 amp Metoprolol Tartrate (Lopressor -) 50 mg PO BID [facility] Last Admin: 12/22/18 23:15 Dose: 50 mg Metoprolol Tartrate (Lopressor Injection -) 5 mg IVPUSH Q4H PRN PRN Reason: HR >120 Polyethylene Glycol (Miralax (For Daily Use) -) 17 gm PO BID [facility] Last Admin: 12/22/18 21:12 Dose: 17 gm Prednisone (Deltasone -) 30 mg PO DAILY [facility] Last Admin: 12/22/18 13:00 Dose: 30 mg Rosuvastatin Calcium (Crestor -) 40 mg PO [facility] Last Admin: 12/22/18 21:13 Dose: 40 mg Saliva Substitute (Mouthkote Solution -) 1 applic MM Q2H PRN PRN Reason: COUGH Senna (Senna Oral Solution -) 8.8 mg PO [facility] Last Admin: 12/22/18 21:13 Dose: 8.8 mg - Objective Vital Signs: Vital Signs Temperature 97.9 F 12/23/18 05:00 Pulse Rate 50 L 12/23/18 05:00 Respiratory Rate 18 12/23/18 05:00 Blood Pressure 125/63 12/23/18 05:00 O2 Sat by Pulse Oximetry (%) 99 12/23/18 09:59 Constitutional: Yes: Well Nourished, Calm Eyes: Yes: WNL HENT: Yes: WNL Neck: Yes: WNL Cardiovascular: Yes: Pulse Irregular, S1, S2 Respiratory: Yes: Rhonchi (SCATTERED MONICA RHONCHI) Gastrointestinal: Yes: Normal Bowel Sounds, Soft Extremities: Yes: WNL Edema: No Labs: CBC, BMP 12/23/18 05:30 Problem List - Problems (1) Acute on chronic respiratory failure with hypoxia and hypercapnia Code(s): J96.21 - ACUTE AND CHRONIC RESPIRATORY FAILURE WITH HYPOXIA; J96.22 - ACUTE AND CHRONIC RESPIRATORY FAILURE WITH HYPERCAPNIA (2) COPD exacerbation Code(s): J44.1 - CHRONIC OBSTRUCTIVE PULMONARY DISEASE W (ACUTE) EXACERBATION (3) Atrial flutter Code(s): I48.92 - UNSPECIFIED ATRIAL FLUTTER Qualifiers: Atrial flutter type: unspecified Qualified Code(s): I48.92 - Unspecified atrial flutter (4) Bilateral lower extremity edema Code(s): R60.0 - LOCALIZED EDEMA (5) COPD exacerbation Code(s): J44.1 - CHRONIC OBSTRUCTIVE PULMONARY DISEASE W (ACUTE) EXACERBATION (6) Cellulitis Code(s): L03.90 - CELLULITIS, UNSPECIFIED (7) Diabetes Code(s): E11.9 - TYPE 2 DIABETES MELLITUS WITHOUT COMPLICATIONS (8) Elevated LFTs Code(s): R94.5 - ABNORMAL RESULTS OF LIVER FUNCTION STUDIES (9) HTN (hypertension) Code(s): I10 - ESSENTIAL (PRIMARY) HYPERTENSION (10) Hyperlipidemia Code(s): E78.5 - HYPERLIPIDEMIA, UNSPECIFIED (11) Morbid obesity Code(s): E66.01 - MORBID (SEVERE) OBESITY DUE TO EXCESS CALORIES (12) New onset atrial flutter Code(s): I48.92 - UNSPECIFIED ATRIAL FLUTTER Assessment/Plan A/P Acute on Chronic Hypoxic and Hypercapneic Respiratory Failure improving Acute COPD Exacerbation resolved Morbid Obesity Obstructive Sleep Apnea/Obesity Hypoventilation Syndrome Suspect Right Heart Failure Volume Overload improving Mediastinal Lymphadenopathy Atrial Fibrillation with RVR Cellulitis treated Acute Kidney Injury Alcohol Abuse - rate control - c anticoagulation - prednisone taper - inhaled bronchodilators PRN - lasix as needed - monitor urine output, creatinine - O2 to keep Spo2 >90% - rehab/PT - DVT/GI prophylaxis - short term pulmonary rehab DR MCCAULEY
--- NOTE | 2018-12-23 11:13 | PN ---
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, Physician Chief Complaint: Pt, alert; no chest pain or dyspnea. History of Present Illness: 53 YO white woman with h/o COPD (placed on steroid course 2 days ago without relief) acute/chronic alcoholism (several glasses of rum daily), long-term cigarette smoker, sleep apnea, morbid obesity, DM, HTN, hyperlipidemia, chronic erythema of LEs with hx cellulitis, metabolic syndrome, who is now admitted with SOB and wheezing similar to her prior COPD exacerbation. She additionally notes awakening in the middle of the night last night with visual hallucinations. She additionally notes abdominal swelling recently, believes she has an abdominal infection but does not know what kind. Denies h/o heart arrhythmia. She has noticed her lips are more blue than normal. - Current Medication List Current Medications: Active Medications Albuterol Sulfate (Ventolin 0.083% Nebulizer Soln -) 1 amp NEB Q6H PRN PRN Reason: SHORT OF BREATH/WHEEZING Apixaban (Eliquis -) 5 mg PO BID [facility] Last Admin: 12/23/18 11:00 Dose: 5 mg Docusate Sodium (Colace -) 100 mg PO DAILY [facility] Last Admin: 12/23/18 11:01 Dose: 100 mg Insulin Aspart (Novolog Vial Sliding Scale -) 1 vial SQ [facility]; Protocol Last Admin: 12/23/18 06:22 Dose: 4 units Insulin Detemir (Levemir Vial) 8 units SQ [facility] Last Admin: 12/22/18 21:13 Dose: 8 units Ipratropium Kaufman (Atrovent 0.02% Nebulizer -) 1 amp NEB RQID [facility] Last Admin: 12/23/18 08:26 Dose: 1 amp Metoprolol Tartrate (Lopressor -) 50 mg PO BID [facility] Last Admin: 12/23/18 11:00 Dose: 50 mg Metoprolol Tartrate (Lopressor Injection -) 5 mg IVPUSH Q4H PRN PRN Reason: HR >120 Polyethylene Glycol (Miralax (For Daily Use) -) 17 gm PO BID [facility] Last Admin: 12/23/18 11:01 Dose: 17 gm Prednisone (Deltasone -) 30 mg PO DAILY [facility] Last Admin: 12/23/18 11:00 Dose: 30 mg Rosuvastatin Calcium (Crestor -) 40 mg PO [facility] Last Admin: 12/22/18 21:13 Dose: 40 mg Saliva Substitute (Mouthkote Solution -) 1 applic MM Q2H PRN PRN Reason: COUGH Senna (Senna Oral Solution -) 8.8 mg PO HS [facility] Last Admin: 12/22/18 21:13 Dose: 8.8 mg - Objective Vital Signs: Vital Signs Temperature 97.9 F 12/23/18 05:00 Pulse Rate 50 L 12/23/18 05:00 Respiratory Rate 18 12/23/18 05:00 Blood Pressure 125/63 12/23/18 05:00 O2 Sat by Pulse Oximetry (%) 99 12/23/18 09:59 Labs: CBC, BMP 12/21/18 07:00 12/23/18 05:30 INR, PTT INR 1.13 (0.83-1.09) H 11/23/18 16:40 Problem List - Problems (1) Atrial flutter Assessment/Plan: Reduce metoprolol tartrate to 25 mg bid (bradycardia and relatvie hypotension at times); f/u HR and BP. Digoxin no longer being used. Stress MIBI : no myocardial ischemia. Code(s): I48.92 - UNSPECIFIED ATRIAL FLUTTER Qualifiers: Atrial flutter type: unspecified Qualified Code(s): I48.92 - Unspecified atrial flutter (2) HTN (hypertension) Assessment/Plan: on metoprolol (dose reduced) and lisinopril. ECHO: normal LVEF; moderate LVH; mild TR and AR; trace to mild MR; RVSP WNL. Code(s): I10 - ESSENTIAL (PRIMARY) HYPERTENSION (3) Diabetes Assessment/Plan: on Levemir, Novolog. Consder an SGLT2 inhibitor (DM; reduction in CV events). On lisinopril. Aggressive lipid control: started statin. Code(s): E11.9 - TYPE 2 DIABETES MELLITUS WITHOUT COMPLICATIONS (4) [place] cardiac risk >20% in next 10 years Code(s): Z91.89 - OTH PERSONAL RISK FACTORS, NOT ELSEWHERE CLASSIFIED (5) Alcoholism Code(s): F10.20 - ALCOHOL DEPENDENCE, UNCOMPLICATED (6) Ascites Code(s): R18.8 - OTHER ASCITES (7) Interstitial lung disease Code(s): J84.9 - INTERSTITIAL PULMONARY DISEASE, UNSPECIFIED (8) CHF (congestive heart failure) Code(s): I50.9 - HEART FAILURE, UNSPECIFIED (9) Renal dysfunction Code(s): N28.9 - DISORDER OF KIDNEY AND URETER, UNSPECIFIED (10) Respiratory failure Code(s): J96.90 - RESPIRATORY FAILURE, UNSP, UNSP W HYPOXIA OR HYPERCAPNIA (11) Sleep apnea Code(s): G47.30 - SLEEP APNEA, UNSPECIFIED (12) Hyperlipidemia Code(s): E78.5 - HYPERLIPIDEMIA, UNSPECIFIED (13) Hypomagnesemia Code(s): E83.42 - HYPOMAGNESEMIA
[2018-12-23] MEDS ORDERED: SODIUM POLYSTYRENE SULFONATE 15 GM/60 ML BOTTLE PO ONE (11:49)
--- NOTE | 2018-12-23 12:17 | DS ---
Physical Examination Vital Signs: Vital Signs Temperature 97.9 F 12/23/18 05:00 Pulse Rate 50 L 12/23/18 05:00 Respiratory Rate 18 12/23/18 05:00 Blood Pressure 125/63 12/23/18 05:00 O2 Sat by Pulse Oximetry (%) 99 12/23/18 09:59 Constitutional: Yes: No Distress, Calm Cardiovascular: Yes: Regular Rate and Rhythm Respiratory: Yes: Diminished Gastrointestinal: Yes: Normal Bowel Sounds, Soft, Abdomen, Obese. No: Tenderness Edema: No Labs: CBC, BMP 12/21/18 07:00 12/23/18 05:30 Discharge Summary Reason For Visit: TACHYCARDIA,ACUTE EXCERBATION OF CHRONIC Current Active Problems Acute on chronic respiratory failure with hypoxia and hypercapnia (Acute) Acute renal failure (Acute) Acute respiratory failure with hypoxia and hypercapnia (Acute) Alcoholism (Acute) Ascites (Acute) Atrial flutter (Acute) Bilateral lower extremity edema (Acute) CHF (congestive heart failure) (Acute) COPD exacerbation (Acute) COPD exacerbation (Acute) Diabetes (Acute) [place] cardiac risk >20% in next 10 years (Acute) HTN (hypertension) (Acute) Hyperlipidemia (Acute) Hypomagnesemia (Acute) Interstitial lung disease (Acute) Morbid obesity (Acute) New onset atrial flutter (Acute) Organic brain syndrome (Acute) Pneumonia (Acute) Pulmonary hypertension (Acute) Renal dysfunction (Acute) Respiratory failure (Acute) Sleep apnea (Acute) Tachycardia (Acute) Hospital Course: Admitted for acute alcohol intoxication- respiratory failure -- was intubated and extubated and reintubated again She had COPD /ILD from chronic smoking, acute renal failure ASSESSMENT/PLAN: 53 y/o F with PMHx of COPD, EtOH abuse, Tobacco Dependence, TRINH, morbid obesity , DM, HTN, HLD was transferred to ICU due to worsening respiratory failure- now on the floors and is ready for rehab due to deconditioning #Pulmonary Acute hypercapnic respiratory failure -Due to pulmonary edema; COPD VS CHF exacerbation -CXR (12/17): No evidence of active pulmonary disease. -Continue Ipratropium QID, Albuterol Q6H PRN -D/C Methylprednisolone; Started PO Prednisone 40mg Daily- now tapering PO prednisone ILD -CTA (11/24): Interstitial lung disease with mediastinal and hilar lymphadenopathy. The possibility of sarcoidosis cannot be excluded -PO Prednisone 40mg Daily -- will need O2 nasal cannula- may wean if tolerating -- if not- then needs home O2 #Cardio Atrial Flutter -- had stress test on 12/22/18-- no signs of myocardial ischemia -EKG (12/14): ATRIAL FIBRILLATION, LEFT POSTERIOR FASCICULAR BLOCK, VR 79, QTc 421 -Cardiology (Dr Jefferson) consulted, appreciate Rec's -D/C Digoxin - Metoprolol tartrate to 25mg PO BID -Continue Eliquis 5mg PO BID CHF -BNP: 2700 -ECHO (12/17): LVEF is normal, Regional WMA cannot be excluded, Mild MR, Mild TR -Not fluid overloaded currently, Will continue to monitor, Daily weights, I&Os HTN -Continue Metoprolol HLD -Continue Rosuvastatin 40mg HS #Neuro -Continue pain control #GI -Speech and swallow consulted, pt tolerating regular diet -Bowel regimen via Colace, Miralax, senna #Renal PITO, Resolved -Nephrology (Dr. Blackburn) Consulted,initial thought was probably jeannie's , polyangiitis- but work up inconclusive and family does not want renal biopsy --renal function is better #ID -ID (Dr. Garza) consulted -Completed course of ABx #PPx -DVT: Eliquis 5mg BID -GI: Protonix # chronic smoker-- will need wellbutrin # chronic alcoholic-- no signs of withdrawal-- she will need to stay off alcohol , aware that she may not survive if she starts drinking again-- will need support services Code status: Full Code stable for dc to NH Condition: Improved - Instructions Disposition: NURSING HOME FACILITY - Home Medications Comprehensive Discharge Medication List: Ambulatory Orders Albuterol Sulfate Inhaler - [Ventolin Hfa Inhaler -] 1 - 2 inh PO QID 11/23/18 Aspirin [ASA -] 81 mg PO DAILY 11/23/18 Budesonide/Formeterol Fumarate [SYMBICORT 160/4.5mcg -] 1 inh PO DAILY 11/23/18 Furosemide [Lasix] 40 mg PO DAILY 11/23/18 Gabapentin 100 mg PO DAILY 11/23/18 Glipizide 10 mg PO BID 11/23/18 Lisinopril [Prinivil] 10 mg PO DAILY 11/23/18 Metformin HCl [Glucophage] 500 mg PO BID 11/23/18 Multivitamins [Tab-A-Vit -] 1 tab PO DAILY 11/23/18 Salmeterol/Fluticasone [Advair 500Mcg/50Mcg -] 1 inh IH BID 11/23/18
[2018-12-23 12:27] VITALS: BMI 37.4
[2018-12-23] MEDS ORDERED: FUROSEMIDE 40 MG TABLET (FP) PO ONE (13:00)
--- NOTE | 2018-12-23 13:17 | PN ---
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, Physician History of Present Illness: Pt seen and examined at bedside. She is awake and alert. She denies dysuria. - Current Medication List Current Medications: Active Medications Albuterol Sulfate (Ventolin 0.083% Nebulizer Soln -) 1 amp NEB Q6H PRN PRN Reason: SHORT OF BREATH/WHEEZING Apixaban (Eliquis -) 5 mg PO BID [facility] Last Admin: 12/23/18 11:00 Dose: 5 mg Bupropion HCl (Wellbutrin Xl -) 150 mg PO DAILY [facility] Docusate Sodium (Colace -) 100 mg PO DAILY [facility] Last Admin: 12/23/18 11:01 Dose: 100 mg Furosemide (Lasix -) 40 mg PO DAILY [facility] Insulin Aspart (Novolog Vial Sliding Scale -) 1 vial SQ [facility]; Protocol Last Admin: 12/23/18 12:16 Dose: Not Given Insulin Detemir (Levemir Vial) 8 units SQ [facility] Last Admin: 12/22/18 21:13 Dose: 8 units Ipratropium [place] (Atrovent 0.02% Nebulizer -) 1 amp NEB RQID [facility] Last Admin: 12/23/18 11:57 Dose: 1 amp Metoprolol Tartrate (Lopressor Injection -) 5 mg IVPUSH Q4H PRN PRN Reason: HR >120 Metoprolol Tartrate (Lopressor -) 25 mg PO BID [facility] Polyethylene Glycol (Miralax (For Daily Use) -) 17 gm PO BID [facility] Last Admin: 12/23/18 11:01 Dose: 17 gm Prednisone (Deltasone -) 30 mg PO DAILY [facility] Last Admin: 12/23/18 11:00 Dose: 30 mg Rosuvastatin Calcium (Crestor -) 40 mg PO [facility] Last Admin: 12/22/18 21:13 Dose: 40 mg Saliva Substitute (Mouthkote Solution -) 1 applic MM Q2H PRN PRN Reason: COUGH Senna (Senna Oral Solution -) 8.8 mg PO [facility] Last Admin: 12/22/18 21:13 Dose: 8.8 mg - Objective Vital Signs: Vital Signs Temperature 97.9 F 12/23/18 05:00 Pulse Rate 50 L 12/23/18 05:00 Respiratory Rate 18 12/23/18 05:00 Blood Pressure 125/63 12/23/18 05:00 O2 Sat by Pulse Oximetry (%) 99 12/23/18 09:59 Constitutional: Yes: Calm Eyes: Yes: Conjunctiva Clear HENT: Yes: Atraumatic Neck: Yes: Supple Cardiovascular: Yes: S1, S2 Respiratory: Yes: On Nasal O2, Rhonchi Gastrointestinal: Yes: Soft, Abdomen, Obese Genitourinary: Yes: WNL Musculoskeletal: Yes: Muscle Weakness Edema: Yes Edema: LLE: Trace, RLE: Trace Neurological: Yes: Oriented Psychiatric: Yes: Oriented Labs: CBC, BMP 12/21/18 07:00 12/23/18 05:30 INR, PTT INR 1.13 (0.83-1.09) H 11/23/18 16:40 Problem List - Problems (1) Acute on chronic respiratory failure with hypoxia and hypercapnia Code(s): J96.21 - ACUTE AND CHRONIC RESPIRATORY FAILURE WITH HYPOXIA; J96.22 - ACUTE AND CHRONIC RESPIRATORY FAILURE WITH HYPERCAPNIA (2) Acute renal failure Code(s): N17.9 - ACUTE KIDNEY FAILURE, UNSPECIFIED (3) Alcoholism Code(s): F10.20 - ALCOHOL DEPENDENCE, UNCOMPLICATED (4) Atrial flutter Code(s): I48.92 - UNSPECIFIED ATRIAL FLUTTER Qualifiers: Atrial flutter type: unspecified Qualified Code(s): I48.92 - Unspecified atrial flutter (5) Bilateral lower extremity edema Code(s): R60.0 - LOCALIZED EDEMA (6) COPD exacerbation Code(s): J44.1 - CHRONIC OBSTRUCTIVE PULMONARY DISEASE W (ACUTE) EXACERBATION Assessment/Plan Current Medications Generic Name Dose Route Start Last Admin Trade Name Freq PRN Reason Stop Dose Admin Albuterol Sulfate 1 amp 12/17/18 16:52 Ventolin 0.083% Nebulizer Soln - NEB Q6H PRN SHORT OF BREATH/WHEEZING Apixaban 5 mg 12/22/18 22:00 12/23/18 11:00 Eliquis - PO 5 mg BID [facility] Administration Bupropion HCl 150 mg 12/24/18 10:00 Wellbutrin Xl - PO DAILY [facility] Docusate Sodium 100 mg 12/18/18 10:00 12/23/18 11:01 Colace - PO 100 mg DAILY [facility] Administration Furosemide 40 mg 12/24/18 10:00 Lasix - PO DAILY [facility] Insulin Aspart 1 vial 12/17/18 22:00 12/23/18 12:16 Novolog Vial Sliding Scale - SQ Not Given ACHS [facility] Protocol Insulin Detemir 8 units 12/17/18 22:00 12/22/18 21:13 Levemir Vial SQ 8 units HS [facility] Administration Ipratropium [place] 1 amp 12/17/18 20:00 12/23/18 11:57 Atrovent 0.02% Nebulizer - NEB 1 amp RQID [facility] Administration Metoprolol Tartrate 5 mg 12/17/18 16:52 Lopressor Injection - IVPUSH Q4H PRN HR >120 Metoprolol Tartrate 25 mg 12/23/18 22:00 Lopressor - PO BID [facility] Polyethylene Glycol 17 gm 12/16/18 22:00 12/23/18 11:01 Miralax (For Daily Use) - PO 17 gm BID [facility] Administration Prednisone 30 mg 12/21/18 10:00 12/23/18 11:00 Deltasone - PO 30 mg DAILY [facility] Administration Rosuvastatin Calcium 40 mg 12/16/18 22:00 12/22/18 21:13 Crestor - PO 40 mg HS [facility] Administration Saliva Substitute 1 applic 12/17/18 16:52 Mouthkote Solution - MM Q2H PRN COUGH Senna 8.8 mg 12/17/18 22:00 12/22/18 21:13 Senna Oral Solution - PO 8.8 mg HS [facility] Administration Laboratory Tests 12/17/18 12/20/18 12/22/18 10:35 14:00 19:00 Urine Protein Negative Negative Urine Blood 1+ H Negative c-ANCA Pending Proteinase 3 (PR3) Pending p-ANCA Pending Atypical p-ANCA Pending Myeloperoxidase Ab Pending Impression 1. PITO 2. hyperkalemia 3. a-flutter 4. resp failure requiring bipap 5. DM 6. HTN 7. active smoker 8. etoh abuse 9. obesity 10. interstitial lung disease on CT scan 11. resp acidosis 12. COPD 13. positive pr3 14. hypernatremia Plan - follow repeat bmp - repeat ua neg for blood or protein - follow repeat anca - do not restart lisinopril - low potassium diet - restart po lasix, pt was on 40 mg daily at home - discussed smoking cessation and etoh abuse at length - will need close follow up of renal function
[2018-12-23 14:17] LABS: ANION GAP 4 MMOL/L (8-16); BLOOD UREA NITROGEN 34 mg/dL (7-18); CALCIUM 8.4 mg/dL (8.5-10.1); CHLORIDE 98 mmol/L (98-107); CO2 37 mmol/L (21-32); CREATININE 0.8 mg/dL (0.55-1.3); GLUCOSE,RANDOM 209 mg/dL (74-106); POTASSIUM 5.6 mmol/L (3.5-5.1); SODIUM 139 mmol/L (136-145)
[2018-12-23 15:30] VITALS: BP 113/50; PULSE 51; TEMP 98.3
[2018-12-23] MEDS ORDERED: METOPROLOL TARTRATE 25 MG TABLET (FP) PO SCH (22:00)
[2018-12-24] MEDS ORDERED: FUROSEMIDE 40 MG TABLET (FP) PO SCH (10:00)
[2018-12-24 14:22] LABS: ATYPICAL pANCA <1:20 titer (Neg:<1:20); C-ANCA <1:20 titer (Neg:<1:20); P-ANCA <1:20 titer (Neg:<1:20)
== END 2018-12-23 18:34 | DRG 208 ==
LOC: JER 15:59 → JERBED 17:54 → J4W 11-24 16:25 → JICU 11-25 17:58 → J4W 12-17 16:52
PROVIDERS: ATTEND Internal Medicine
PROC: 5A1945Z Respiratory Ventilation, 24-96 Consecutive Hours (ICD-10-PCS; principal; 2018-11-27)
PROC: 0BH17EZ Insertion of Endotracheal Airway into Trachea, Via Natural or Artificial Opening (ICD-10-PCS; 2018-11-27)
DX: J96.21 Acute and chronic respiratory failure with hypoxia (principal); N17.9 Acute kidney failure, unspecified; R18.8 Other ascites; I48.92 Unspecified atrial flutter; J44.1 Chronic obstructive pulmonary disease with (acute) exacerbation; J84.9 Interstitial pulmonary disease, unspecified; E87.0 Hyperosmolality and hypernatremia; L03.90 Cellulitis, unspecified; J96.22 Acute and chronic respiratory failure with hypercapnia; E11.9 Type 2 diabetes mellitus without complications; E78.5 Hyperlipidemia, unspecified; E83.42 Hypomagnesemia; E66.01 Morbid (severe) obesity due to excess calories; Z68.37 Body mass index [BMI] 37.0-37.9, adult; F09 Unspecified mental disorder due to known physiological condition; I27.20 Pulmonary hypertension, unspecified; G47.30 Sleep apnea, unspecified; R00.0 Tachycardia, unspecified; I48.91 Unspecified atrial fibrillation; I44.5 Left posterior fascicular block; F10.229 Alcohol dependence with intoxication, unspecified; E87.5 Hyperkalemia; F17.210 Nicotine dependence, cigarettes, uncomplicated; E87.70 Fluid overload, unspecified; R59.1 Generalized enlarged lymph nodes; I11.0 Hypertensive heart disease with heart failure; I50.9 Heart failure, unspecified
CPT/HCPCS: 31500; 36415; 36600; 71045-TC-FY; 71250-TC; 71275-TC; 74019-TC-FY; 76700-TC; 76705-TC; 76775-TC; 78452-TC; 80048; 80053; 80061; 80162; 81003; 81015; 82140; 82164; 82375; 82436; 82550; 82570; 82803; 82962; 83036; 83050; 83516; 83520; 83605; 83721; 83735; 83880; 84100; 84133; 84155; 84165; 84300; 84443; 84484; 85025; 85027; 85379; 85610; 85730; 86038; 86225; 86256; 86671; 86704; 86706; 86708; 87040; 87086; 87205; 87340; 87522; 87804; 87899; 93005; 93010; 93017; 93306-TC; 93970-TC; 94002; 94640; 94660; 97116-GP; 97162-GP; 99285-25; A9502; G0480; J1644; J2785

== ENCOUNTER 2025-05-06 08:49 | Inpatient (IN) | payer OTHER ==
[2025-05-06] MEDS ORDERED: ALBUTEROL SO4 2.5/IPRATROPIUM 0.5 INH SOL 3 ML VIAL.NEB. NEB ONE (09:00)
[2025-05-06] MEDS: ALBUTEROL SO4 2.5/IPRATROPIUM 0.5 INH SOL 3 ML VIAL.NEB. NEB ONE (09:03)
[2025-05-06 09:15] VITALS: BMI 37.6
[2025-05-06 09:29] LABS: ABSOLUTE IMMATURE GRANULOCYTES 0.05 x10^3/uL (0.0-0.031); BASOPHILS # 0.04 x10^3/uL (0.01-0.08); EOSINOPHIL % 0.3 % (0.7-5.8); EOSINOPHILS # 0.03 x10^3/uL (0.04-0.36); HEMATOCRIT 45.1 % (34.1-44.9); HEMOGLOBIN 14.1 g/dL (11.2-15.7); MCHC 31.3 g/dl (32.2-35.5); MEAN PLT VOLUME 11.3 fl (9.4-12.3); MONOCYTE # 1.09 x10^3/uL (0.24-0.86); MONOCYTE % 10.1 % (4.7-12.5); PLATELET COUNT 143 x10^3/uL (182-369); RDW 15.6 % (12.3-16.6)
[2025-05-06 09:31] LABS: VENOUS BASE EXCESS 3.3 mmol/L (-2-2); VENOUS O2 SATURATION 59.1 % (70-80); VENOUS PH 7.224 (7.310-7.410)
[2025-05-06 09:35] LABS: VENOUS PCO2 84.7 mmHg (38-52)
[2025-05-06 09:55] LABS: POTASSIUM 4.4 mmol/L (3.5-5.1)
[2025-05-06 09:59] LABS: ALBUMIN 3.7 g/dl (3.4-5.0); BLOOD UREA NITROGEN 24.9 mg/dL (7-18); MAGNESIUM 3.1 mg/dL (1.8-2.4)
[2025-05-06 10:02] LABS: BILIRUBIN,TOTAL 0.5 mg/dL (0.2-1)
[2025-05-06 10:03] LABS: TOT PROT 6.7 g/dl (6.4-8.2)
[2025-05-06 10:04] LABS: VENOUS BASE EXCESS 2.4 mmol/L (-2-2); VENOUS O2 SATURATION 71.1 % (70-80); VENOUS PH 7.241 (7.310-7.410)
[2025-05-06 10:41] LABS: VENOUS PCO2 77.8 mmHg (38-52)
[2025-05-06] MEDS ORDERED: HYDROCORTISONE SOD SUCCINATE 100 MG/2 ML VIAL ONE (11:43)
[2025-05-06] MEDS: methylPREDNISolone NA SUCC 40 MG/1 ML VIAL IVPUSH SCH (11:46)
[2025-05-06] MEDS: ALBUTEROL SO4 2.5/IPRATROPIUM 0.5 INH SOL 3 ML VIAL.NEB. NEB SCH (12:20)
[2025-05-06] MEDS ORDERED: ALBUTEROL SO4 2.5/IPRATROPIUM 0.5 INH SOL 3 ML VIAL.NEB. NEB PRN (12:33)
[2025-05-06] MEDS: AMPICILLIN NA/SULBACTAM NA 3 GM in SODIUM CHLORIDE 100 ML IVPB SCH (14:19)
[2025-05-06] MEDS: ENALAPRIL MALEATE 2.5 MG TABLET PO SCH (15:24)
[2025-05-06] MEDS ORDERED: ALBUTEROL SO4 0.083% IH SOL 2.5 MG/3 ML VIAL.NEB. NEB PRN (15:39)
[2025-05-06] MEDS: FUROSEMIDE 40 MG/4 ML INJECTABLE VIAL IVPUSH SCH (16:59)
[2025-05-06] MEDS: dilTIAZem HCL 25 MG/5 ML - 5 ML VIAL IVPUSH ONE (18:55)
[2025-05-06] MEDS: DIGOXIN 0.5 MG/2 ML AMPUL IVPUSH ONE (19:49)
[2025-05-06] MEDS: APIXABAN 5 MG TABLET PO SCH (21:40)
[2025-05-06] MEDS: BUDESONIDE/FORMETEROL FUMARATE 160/4.5 mcg INHALER IH SCH (23:00)
[2025-05-06 23:59] LABS: N-TERMINAL BNP 1107.9 pg/ml (5-125)
[2025-05-07] MEDS: INSULIN ASPART SLIDING SCALE (NOVOLOG) 1 VIAL SQ SCH (06:32)
[2025-05-07] MEDS: GLIMEPIRIDE 2 MG TABLET PO SCH (06:32)
[2025-05-07 06:50] LABS: ABSOLUTE IMMATURE GRANULOCYTES 0.04 x10^3/uL (0.0-0.031); BASOPHILS # 0.01 x10^3/uL (0.01-0.08); HEMATOCRIT 46.6 % (34.1-44.9); HEMOGLOBIN 14.4 g/dL (11.2-15.7); MCHC 30.9 g/dl (32.2-35.5); MEAN PLT VOLUME 11.1 fl (9.4-12.3); MONOCYTE # 0.38 x10^3/uL (0.24-0.86); MONOCYTE % 4.1 % (4.7-12.5); PLATELET COUNT 124 x10^3/uL (182-369); RDW 14.9 % (12.3-16.6)
[2025-05-07 07:01] LABS: POTASSIUM 4.9 mmol/L (3.5-5.1)
[2025-05-07 07:07] LABS: CALCIUM 9.1 mg/dL (8.5-10.1)
[2025-05-07 07:08] LABS: ALBUMIN 3.4 g/dl (3.4-5.0); BLOOD UREA NITROGEN 28.2 mg/dL (7-18)
[2025-05-07 07:11] LABS: CREATININE 1.1 mg/dL (0.55-1.3)
[2025-05-07 07:12] LABS: BILIRUBIN,TOTAL 0.6 mg/dL (0.2-1); TOT PROT 6.3 g/dl (6.4-8.2)
[2025-05-07] MEDS ORDERED: FLUTICASONE/UMECLIDIN/VILANTER(200-62.5-25 TRELEGY ELLIPTA) INAHLER IH SCH (10:00)
[2025-05-07] MEDS: INSULIN GLARGINE (LANTUS) 100 UNITS/ML UNITS SQ ONE (10:20)
[2025-05-07] MEDS: EMPAGLIFLOZIN (JARDIANCE) 10 MG TABLET PO SCH (14:50)
[2025-05-07] MEDS: methylPREDNISolone NA SUCC 40 MG/1 ML VIAL IVPUSH SCH (17:51)
[2025-05-07] MEDS: INSULIN GLARGINE (LANTUS) 100 UNITS/ML UNITS SQ SCH (21:17)
[2025-05-08] MEDS ORDERED: LEVALBUTEROL HCL 0.31 MG/3 ML VIAL.NEB IH PRN (14:00)
[2025-05-09 06:55] LABS: HEMATOCRIT 48.9 % (34.1-44.9); HEMOGLOBIN 15.1 g/dL (11.2-15.7); MCHC 30.9 g/dl (32.2-35.5); RDW 14.6 % (12.3-16.6)
[2025-05-09 06:57] LABS: MEAN CELL VOLUME 100.8 fl (79.4-94.8); PLATELET COUNT 109 x10^3/uL (182-369)
[2025-05-09 07:09] LABS: POTASSIUM 4.5 mmol/L (3.5-5.1)
[2025-05-09 07:13] LABS: CALCIUM 9.4 mg/dL (8.5-10.1)
[2025-05-09 07:14] LABS: ALBUMIN 3.3 g/dl (3.4-5.0); MAGNESIUM 2.5 mg/dL (1.8-2.4)
[2025-05-09 07:17] LABS: PHOSPHOROUS 4.2 mg/dL (2.5-4.9)
[2025-05-09 07:19] LABS: BILIRUBIN,TOTAL 0.6 mg/dL (0.2-1); TOT PROT 6.2 g/dl (6.4-8.2)
[2025-05-09] MEDS: methylPREDNISolone NA SUCC 40 MG/1 ML VIAL IVPUSH SCH (11:10)
[2025-05-09] MEDS ORDERED: SODIUM CHLORIDE NASAL SPRAY 44 ML BOTTLE NS PRN (15:55)
[2025-05-10] MEDS ORDERED: INSULIN GLARGINE (LANTUS) 100 UNITS/ML UNITS SQ ONE (06:47)
[2025-05-10] MEDS ORDERED: GLIMEPIRIDE 4 MG TABLET PO SCH (09:36)
[2025-05-10 12:10] VITALS: BP 109/60; PULSE 102; RESP 16; TEMP 98.4
[2025-05-10] MEDS ORDERED: metFORMIN HCL 500 MG TABLET (FP) PO SCH (16:30)
== END 2025-05-10 13:57 | disposition home or self-care (01) | DRG 189 ==
LOC: JER 08:49 → JERBED 10:46 → J4S 12:49
PROVIDERS: ADMIT Internal Medicine; ATTEND Internal Medicine
DX: J96.21 Acute and chronic respiratory failure with hypoxia (principal); I50.33 Acute on chronic diastolic (congestive) heart failure; J44.1 Chronic obstructive pulmonary disease with (acute) exacerbation; E87.29 Other acidosis; I48.20 Chronic atrial fibrillation, unspecified; I48.92 Unspecified atrial flutter; J96.01 Acute respiratory failure with hypoxia; J96.22 Acute and chronic respiratory failure with hypercapnia; G47.33 Obstructive sleep apnea (adult) (pediatric); E11.9 Type 2 diabetes mellitus without complications; E78.5 Hyperlipidemia, unspecified; F10.10 Alcohol abuse, uncomplicated; I11.0 Hypertensive heart disease with heart failure; E66.01 Morbid (severe) obesity due to excess calories; F17.210 Nicotine dependence, cigarettes, uncomplicated; Z68.37 Body mass index [BMI] 37.0-37.9, adult
CPT/HCPCS: 0241U-QW; 36415; 71045-TC-FY; 80053; 82550; 82803; 82962; 83735; 83880; 84100; 84439; 84443; 84484; 85025; 93005; 93010; 93306-TC; 94640; 94660; 99285-25